=== PATIENT | female | born 1970 | race Caucasian/White ===

== ENCOUNTER 2020-09-14 08:23 | Outpatient (REF) | payer MEDICAID, SELFPAY ==
--- NOTE | ~2020-09-14 | XR_ITS ---
EXAMINATION: XR LUMBAR SPINE XR KNEE, LEFT XR KNEE, RIGHT CLINICAL INFORMATION: Pain. COMPARISON: None TECHNIQUE: Four views of each knee. Five views of the lumbar spine including bilateral oblique views. BILATERAL KNEE FINDINGS: Right: Bone alignment is normal. No fracture or dislocation is seen. There are degenerative changes of the femoral tibial and patellofemoral joints with joint space narrowing and osteophyte formation. There is a moderate-sized joint effusion. There is faint ossification projecting over the medial patellofemoral joint on the sunrise view and adjacent to the tibial spines on the tunnel view questionable for ossified intra-articular loose bodies. Left: There is question of mild medial subluxation of the distal femur with respect to the proximal tibia. Bone alignment is otherwise normal. There is arthritis at the patellofemoral and femorotibial joints with joint space narrowing and osteophyte formation. There is a small joint effusion. There is a linear radiopaque density that projects over the medial soft tissues just above the knee joint. This is seen on the AP view only and is in the region of the greater saphenous vein. This measures 5.6 x 0.6 cm and longitudinal and transverse dimension. XR/XR knee RT 4V IMPRESSION: Bilateral arthritis. Linear radiopaque density projecting over the soft tissues of the medial distal thigh just above the elbow in the region of the greater saphenous vein. This is seen on one view only. Clinical correlation recommended. LUMBAR SPINE FINDINGS: Bone alignment is normal. No fracture or dislocation is seen. There is degenerative disc disease at L4-L5 and L5-S1. There is lower lumbar spine facet arthritis. No pars defect is seen. There are degenerative changes at the hip joints. IMPRESSION: Degenerative disc disease and facet arthritis of the lower lumbar spine.
--- NOTE | ~2020-09-14 | XR_ITS ---
EXAMINATION: XR LUMBAR SPINE XR KNEE, LEFT XR KNEE, RIGHT CLINICAL INFORMATION: Pain. COMPARISON: None TECHNIQUE: Four views of each knee. Five views of the lumbar spine including bilateral oblique views. BILATERAL KNEE FINDINGS: Right: Bone alignment is normal. No fracture or dislocation is seen. There are degenerative changes of the femoral tibial and patellofemoral joints with joint space narrowing and osteophyte formation. There is a moderate-sized joint effusion. There is faint ossification projecting over the medial patellofemoral joint on the sunrise view and adjacent to the tibial spines on the tunnel view questionable for ossified intra-articular loose bodies. Left: There is question of mild medial subluxation of the distal femur with respect to the proximal tibia. Bone alignment is otherwise normal. There is arthritis at the patellofemoral and femorotibial joints with joint space narrowing and osteophyte formation. There is a small joint effusion. There is a linear radiopaque density that projects over the medial soft tissues just above the knee joint. This is seen on the AP view only and is in the region of the greater saphenous vein. This measures 5.6 x 0.6 cm and longitudinal and transverse dimension. XR/XR lumbar spine 4V min IMPRESSION: Bilateral arthritis. Linear radiopaque density projecting over the soft tissues of the medial distal thigh just above the elbow in the region of the greater saphenous vein. This is seen on one view only. Clinical correlation recommended. LUMBAR SPINE FINDINGS: Bone alignment is normal. No fracture or dislocation is seen. There is degenerative disc disease at L4-L5 and L5-S1. There is lower lumbar spine facet arthritis. No pars defect is seen. There are degenerative changes at the hip joints. IMPRESSION: Degenerative disc disease and facet arthritis of the lower lumbar spine.
[2020-09-14 09:20] LABS: MANUAL DIFF FLAG NO
[2020-09-14 09:25] LABS: Basophils Absolute Auto 0.1 X10*3/uL (0.0-0.2); Basophils Percent Auto 0.6 % (0-2); Eosinophils Absolute Auto 0.6 X10*3/uL (0.0-0.4); Eosinophils Percent Auto 5.5 % (0-4); Hemoglobin 12.3 g/dl (12.0-16.0); Imm Gran Abs Auto 0.04 X10*3/uL (0.00-0.03); Imm Gran Pct Auto 0.4 % (0.0-0.4); Lymphocytes Absolute Auto 3.3 X10*3/uL (1.2-4.9); Lymphocytes Percent Auto 32.5 % (20-40); Mean Corpuscular HGB Conc 31.5 g/dl (31.0-35.0); Mean Corpuscular Hemoglobin 25.2 pg (27.0-33.0); Mean Corpuscular Volume 79.9 fL (80-98); Mean Platelet Volume 10.4 fL (9.4-12.3); Monocytes Absolute Auto 0.9 X10*3/uL (0.1-1.2); Monocytes Percent Auto 8.8 % (2-11); Neutrophils Absolute Auto 5.2 X10*3/uL (2.0-8.3); Neutrophils Percent Auto 52.2 % (45-73); Platelet Count 430 X10*3/uL (160-400); Red Blood Count 4.88 X10*6/uL (4.20-5.50); Red Cell Distribution Width 14.6 % (11.0-16.0)
[2020-09-14 09:54] LABS: Alanine Aminotransferase 36 U/L (0-31); Albumin Level 4.2 g/dL (3.5-5.0); Alkaline Phosphatase 95 U/L (39-117); Anion Gap 14 (12-20); Aspartate Amino Transferase 42 U/L (5-31); Bilirubin Direct < 0.2 mg/dL (0.0-0.5); Bilirubin Total 0.4 mg/dL (0.0-1.0); Blood Urea Nitrogen 12 mg/dL (9-16); Calcium 9.4 mg/dL (8.4-10.2); Carbon Dioxide 25 mmol/L (22-29); Chloride 105 mmol/L (96-108); Estimated Glomerular Filt Rate > 60; Glucose Random 105 mg/dL (60-115); Potassium 4.5 mmol/L (3.3-5.1); Sodium 139 mmol/L (135-145); Total Protein 7.2 g/dL (6.5-8.0)
[2020-09-14 10:07] LABS: HIV AB/AG Nonreactive (Nonreactive); HIV Num 1 0.05 S/CO (0.00-0.99)
[2020-09-14 10:14] LABS: Thyroid Stimulating Hormone 0.07 uIU/mL (0.32-4.0); Vitamin D 25-OH Total 39.9 ng/mL (>30)
[2020-09-14 10:52] LABS: Syphilis Screen Reactive (Nonreactive)
[2020-09-14 11:02] LABS: Folate 18.1 ng/mL (> or = 4.0); Vitamin B12 762 pg/mL (200-900)
[2020-09-15 21:12] LABS: C. trachomatis RNA TMA NOT DETECTED (NOT DETECTED); N. gonorrhoeae RNA TMA NOT DETECTED (NOT DETECTED)
[2020-09-26 15:12] LABS: RPR Quantitative Reactive 1:16 (Nonreactive)
[2020-09-26 15:13] LABS: T.Pallidum Particle Agg Test Reactive (Nonreactive)
== END 2020-09-14 08:24 | disposition home or self-care (01) ==
LOC: HO.LAB 08:23
PROVIDERS: PCP Internal Medicine; Visit Provider Internal Medicine
DX: M54.5 Low back pain (principal); M17.0 Bilateral primary osteoarthritis of knee; E03.9 Hypothyroidism, unspecified; Z86.19 Personal history of other infectious and parasitic diseases
CPT/HCPCS: 36415; 72110; 73564; 80048; 80076; 82306; 82607; 82746; 84443; 85025; 86592; 86780; 87389; 87491; 87591

== ENCOUNTER 2020-11-08 12:12 | Outpatient (REF) | payer MEDICAID, SELFPAY ==
[2020-11-08 14:48] LABS: Free T4 (Free Thyroxine) 0.77 ng/dL (0.71-1.85); Thyroid Stimulating Hormone 8.39 uIU/mL (0.32-4.0)
[2020-11-09 06:22] LABS: Thyroid Peroxidase Antibodies 4 IU/mL (<9)
[2020-11-09 09:31] LABS: Thyroglobulin Antibodies 1 IU/mL (< or = 1)
== END 2020-11-08 12:13 | disposition home or self-care (01) ==
LOC: HO.LAB 12:12
PROVIDERS: PCP Internal Medicine; Visit Provider Nurse Practitioner Gerontology
DX: E03.9 Hypothyroidism, unspecified (principal); E66.09 Other obesity due to excess calories; Z71.3 Dietary counseling and surveillance; F17.200 Nicotine dependence, unspecified, uncomplicated; Z79.899 Other long term (current) drug therapy; Z71.6 Tobacco abuse counseling; Z68.41 Body mass index [BMI] 40.0-44.9, adult
CPT/HCPCS: 36415; 84439; 84443; 86376; 86800; 99212

== ENCOUNTER 2021-02-16 11:21 | Emergency (ER) | payer MEDICAID, SELFPAY ==
--- NOTE | ~2021-02-16 | XR_ITS ---
EXAMINATION: RIGHT FOOT, LEFT KNEE, AND LUMBAR SPINE. CLINICAL INFORMATION: Pain COMPARISON: September 14, 2020 TECHNIQUE: 3 views of the right foot, 4 views of the left knee, and three-view lumbar spine study. FINDINGS: 3 views of the right foot do not demonstrate any evidence of acute fracture or dislocation. Joint spaces appear maintained. No radiopaque foreign body. There is a large plantar calcaneal spur. Views of the left knee demonstrate moderate narrowing of the medial joint space compartment. Tricompartment degenerative spurring is present. No acute fracture identified. No knee effusion. There is some prominent spurring about the patellofemoral joint. There is no significant change. There are 5 nonrib bearing lumbar vertebra with lumbarization of S1. No acute fracture, spondylolisthesis, or spondylolysis is appreciated. Anterior marginal spurring is seen multiple levels of the lower thoracic and upper lumbar spine. There is disc space narrowing seen at the L5-S1 and S1-S2 levels. Sacroiliac joints unremarkable. Pedicles appear intact. XR/XR lumbar spine 2-3V IMPRESSION: Large right foot plantar calcaneal spur. Tricompartment degenerative change of the left knee most significantly involving the medial joint space compartment. Lumbarization of S1 with disc space narrowing seen at the L5-S1 and S1-S2 levels.
--- NOTE | ~2021-02-16 | XR_ITS ---
EXAMINATION: RIGHT FOOT, LEFT KNEE, AND LUMBAR SPINE. CLINICAL INFORMATION: Pain COMPARISON: September 14, 2020 TECHNIQUE: 3 views of the right foot, 4 views of the left knee, and three-view lumbar spine study. FINDINGS: 3 views of the right foot do not demonstrate any evidence of acute fracture or dislocation. Joint spaces appear maintained. No radiopaque foreign body. There is a large plantar calcaneal spur. Views of the left knee demonstrate moderate narrowing of the medial joint space compartment. Tricompartment degenerative spurring is present. No acute fracture identified. No knee effusion. There is some prominent spurring about the patellofemoral joint. There is no significant change. There are 5 nonrib bearing lumbar vertebra with lumbarization of S1. No acute fracture, spondylolisthesis, or spondylolysis is appreciated. Anterior marginal spurring is seen multiple levels of the lower thoracic and upper lumbar spine. There is disc space narrowing seen at the L5-S1 and S1-S2 levels. Sacroiliac joints unremarkable. Pedicles appear intact. XR/XR foot RT 2V IMPRESSION: Large right foot plantar calcaneal spur. Tricompartment degenerative change of the left knee most significantly involving the medial joint space compartment. Lumbarization of S1 with disc space narrowing seen at the L5-S1 and S1-S2 levels.
--- NOTE | ~2021-02-16 | XR_ITS ---
EXAMINATION: RIGHT FOOT, LEFT KNEE, AND LUMBAR SPINE. CLINICAL INFORMATION: Pain COMPARISON: September 14, 2020 TECHNIQUE: 3 views of the right foot, 4 views of the left knee, and three-view lumbar spine study. FINDINGS: 3 views of the right foot do not demonstrate any evidence of acute fracture or dislocation. Joint spaces appear maintained. No radiopaque foreign body. There is a large plantar calcaneal spur. Views of the left knee demonstrate moderate narrowing of the medial joint space compartment. Tricompartment degenerative spurring is present. No acute fracture identified. No knee effusion. There is some prominent spurring about the patellofemoral joint. There is no significant change. There are 5 nonrib bearing lumbar vertebra with lumbarization of S1. No acute fracture, spondylolisthesis, or spondylolysis is appreciated. Anterior marginal spurring is seen multiple levels of the lower thoracic and upper lumbar spine. There is disc space narrowing seen at the L5-S1 and S1-S2 levels. Sacroiliac joints unremarkable. Pedicles appear intact. XR/XR knee LT 3V IMPRESSION: Large right foot plantar calcaneal spur. Tricompartment degenerative change of the left knee most significantly involving the medial joint space compartment. Lumbarization of S1 with disc space narrowing seen at the L5-S1 and S1-S2 levels.
[2021-02-16 11:37] VITALS: BP 150/99; PULSE 84; RESP 18; TEMP 36.9; O2SAT 97; BMI 42.9
--- NOTE | 2021-02-16 11:40 | ED_ITS ---
HPI - Extremity Injury (Lower) General Chief Complaint: Extremity Injury, Lower Stated Complaint: knee pain Time Seen by Provider: 02/16/21 11:40 Source: patient Mode of arrival: ambulatory Limitations: no limitations History of Present Illness HPI Narrative: 50-year-old female with past medical history of obesity, hypothyroidism, degenerative joint disease who presents to the emergency department with complaints of atraumatic left knee right foot and low back pain since yesterday. Patient states yesterday she notes her left knee was bothering her more than normal and feels that because of compensating more on the right side she developed worsening low back pain and right foot pain. States she heard increased clicking to the left knee but denies known injury or trauma. States she is out of her celecoxib and is waiting for the pharmacy to center more which could be contributing to increased pain states this morning she took a dose of Aleve and her gabapentin with minimal relief. Denies fevers or chi lls. Denies chest pain or shortness of breath. Denies abdominal pain nausea vomiting changes in bowel or bladder habits or numbness and tingling in the arms legs or genitals. Related Data Home Medications Medication Instructions Recorded Confirmed amlodipine 5 mg tablet 5 mg PO DAILY 11/08/20 11/08/20 celecoxib 100 mg capsule 100 mg PO DAILY 11/08/20 11/08/20 diclofenac sodium 1 % topical gel 2 g TOPICAL DAILY g 11/08/20 11/08/20 docusate sodium 100 mg capsule 100 mg PO BID 11/08/20 11/08/20 gabapentin 100 mg capsule 100 mg PO TID 11/08/20 11/08/20 hydrochlorothiazide 12.5 mg tablet 12.5 mg PO DAILY 11/08/20 11/08/20 hydroxyzine HCl 10 mg tablet 10 mg PO BID tab 11/08/20 11/08/20 lamotrigine 100 mg tablet 100 mg PO BID 11/08/20 11/08/20 lisinopril 20 mg tablet 20 mg PO DAILY 11/08/20 11/08/20 omeprazole 40 mg capsule,delayed 40 mg PO BID 11/08/20 11/08/20 release prazosin 2 mg capsule 2 mg PO BEDTIME 11/08/20 11/08/20 simvastatin 5 mg tablet 5 mg PO BEDTIME 11/08/20 11/08/20 valacyclovir 500 mg tablet 500 mg PO DAILY PRN 11/08/20 11/08/20 Previous Rx's Medication Instructions Recorded levothyroxine 137 mcg capsule 137 mcg PO DAILY #30 cap 11/08/20 celecoxib [Celebrex] 100 mg PO .daily at bedtime #30 cap 02/16/21 Allergies Allergy/AdvReac Type Severity Reaction Status Date / Time Penicillins Allergy Unknown Anaphylaxis Verified 11/08/20 12:47 Review of Systems 2 Review of Systems: Constitutional : No Weight loss, No Fever, No Chills, No Night Sweats, No Fatigue, No Malaise ENT/Mouth : No Hearing loss, No Ear Pain, No Nasal Congestion, No Sinus Pain, No Hoarseness, No sore throat, No Rhinorrhea, No Swallowing Difficulty Eyes: No Eye Pain, No Swelling, No Redness, No Foreign Body, No Discharge, No Vision Changes Cardiovascular : No Chest Pain, No SOB, No Dyspnea on Exertion, No Orthopnea, No Edema, No Palpitations Respiratory : No Cough, No Sputum, No Wheezing, No Smoke Exposure, No Dyspnea Gastrointestinal : No Nausea, No Vomiting, No Diarrhea, No Constipation, No abdominal Pain, No Hematochezia, No Melena Genitourinary : no irregular bleeding, No Dysuria, No Urinary Frequency, No Hematuria, No Urinary Incontinence, No Urgency, No Flank Pain, No Urinary Flow Changes, No Hesitancy Musculoskeletal : + joint pain, No Myalgias, + Joint Swelling, + low back pain Skin : No Skin Lesions, No rash Neuro : No Weakness, No Numbness, No Paresthesias, No Loss of Consciousness, No Dizziness, No Headache Psych : No Anxiety/Panic, No Depression, No SI/HI/AH/VH, No Social Issues, Heme/Lymph: No Bruising, No Bleeding,No Lymphadenopathy Endocrine : No Polyuria, No Polydipsia, No Temperature Intolerance [facility] Past Medical History Attestation statement: The following information was validated with the patient. Source: old records reviewed and obtained from family Medical History (Updated 02/16/21 @ 13:06 by CANDIDA Burgos) Essential hypertension Hypothyroidism Obesity due to excess calories Osteoarthritis Surgical History H/O shoulder surgery History of carpal tunnel release Hx of tonsillectomy Family History Family History (Updated 11/08/20 @ 12:20 by Dea Rodriguez [facility]) Father Lung cancer Mother Congestive heart failure Type 2 diabetes mellitus Social History Social History (Updated 11/08/20 @ 09:35 by Odin Ramirez [facility]) Advance Directives: Yes Advance Directives Information Provided: Yes Advance Directives on File: No Patient : No Physical Exam Vital Signs: Vital Signs: Last Vital Signs Temp 98.4 F 02/16/21 11:37 Pulse 84 02/16/21 11:37 Resp 18 02/16/21 11:37 BP 150/99 H 02/16/21 11:37 Pulse Ox 97 02/16/21 11:37 Body Mass Index 42.9 vital signs have been reviewed as normal and appeared to be correct. Blood pressure normal. Heart rate normal. Respiration rate normal. Temperature normal. Oxygen saturation normal. Appearance: Alert. Oriented X3. No acute distress. Head: Normal external exam. Normocephalic. Atraumatic. No [place] signs noted. No raccoon eyes noted Eyes: Conjunctiva and sclera normal. ENT: EAC normal. Moist mucous membranes. No drooling noted. No muffled voice noted. Neck: Normal inspection. Neck supple. FROM. No meningeal signs. CVS: Pulses normal throughout. Respiratory: No respiratory distress. Painless inspiration. No accessory muscle usage noted Abdomen: No visible injury noted. Abdomen soft nondistended nontender Back: Full range of motion noted. Pain to palpation of midline lumbar spine as well as bilateral paraspinal regions. No step-offs or gross deformities no overlying skin changes no flank tenderness Skin: Skin warm and dry. Normal skin color. Normal skin turgor. Extremities: No lower extremity edema. Extremities exhibit normal range of motion. Patient with full range of motion of the left knee however pain to palpation over the anterior knee cap as well as MCL. Mild increased edema compared to the right. Patient with full range of motion of right ankle and right foot however edema with pain to palpation over the anterior foot itself. Patient is wearing an ankle monitor Achilles tendon intact distal pulses. Sensation is otherwise intact Neuro: Oriented X 3. No motor deficit. No sensory deficit. Course Course Course Narrative: Patient's x-rays returned without acute fracture or dislocation patient asking for her celecoxib to be refilled, feel this is reasonable we will discharge home with instructions to use this and ibuprofen during the day for pain MDM - Extremity Injury (Lower) MDM Narrative Medical decision making narrative: Patient's vital signs are stable and she is afebrile. Patient presenting to the emergency department with reports of acute on chronic pains in the left knee right foot and low back. No reports of new or traumatic injuries. Will obtain x-rays of the left knee right foot and lumbar spine to ensure the absence of acute findings given no degenerative joint disease. Will medicate with Motrin and Tylenol. No red flags on exam no acute concern for cauda equina or SEA. Patient states of ankle monitor needs to be removed for images her chief digital officer approved this will leave this to x-ray if warranted will continue to monitor pending the above. Discharge Plan Discharge Clinical Impression: Lumbar back pain Acute knee pain Qualifiers: Laterality: left Qualified Code(s): M25.562 - Pain in left knee Acute foot pain Qualifiers: Laterality: right Qualified Code(s): M79.671 - Pain in right foot Patient Disposition: Home, Self-Care Instructions: Acute Low Back Pain (ED), Knee Pain (ED) Additional Instructions: You were seen in the emergency department today for left knee right foot and low back pain x-rays of these areas were taken and show degenerative joint disease but no evidence of acute fractures. A new prescription for your celecoxib will be sent to [facility] continue to use ibuprofen at home every 6 hours to help with acute pain and inflammation. Prescriptions: New celecoxib [Celebrex] 100 mg capsule 100 mg PO .daily at bedtime Qty: 30 RF: 0 No Action prazosin 2 mg capsule 2 mg PO BEDTIME RF: 0 simvastatin 5 mg tablet 5 mg PO BEDTIME RF: 0 gabapentin 100 mg capsule 100 mg PO TID RF: 0 omeprazole 40 mg capsule,delayed release(DR/EC) 40 mg PO BID RF: 0 celecoxib 100 mg capsule 100 mg PO DAILY RF: 0 diclofenac sodium 1 % gel 2 g topical DAILY RF: 0 docusate sodium 100 mg capsule 100 mg PO BID RF: 0 hydroxyzine HCl 10 mg tablet 10 mg PO BID RF: 0 lamotrigine [Lamictal] 100 mg tablet 100 mg PO BID RF: 0 hydrochlorothiazide 12.5 mg tablet 12.5 mg PO DAILY RF: 0 lisinopril 20 mg tablet 20 mg PO DAILY RF: 0 amlodipine 5 mg tablet 5 mg PO DAILY RF: 0 valacyclovir 500 mg tablet 500 mg PO DAILY PRNRF: 0 levothyroxine 137 mcg capsule 137 mcg PO DAILY Qty: 30 RF: 6 Interventions: ED Discharge Assessment Last Done: 02/16/21 13:13 Discharge Date/Time: 02/16/21 13:13 Print Language: Czech
[2021-02-16] MEDS: Ibuprofen 800 MG TABLET PO (12:17)
[2021-02-16] MEDS: Acetaminophen 325 MG TABLET 650 MG PO (12:17)
== END 2021-02-16 13:13 | disposition home or self-care (01) ==
PROVIDERS: Emergency Provider Emergency Medicine Emergency Medical Services; PCP Internal Medicine
DX: M54.5 Low back pain (principal); M25.562 Pain in left knee; M79.671 Pain in right foot; I10 Essential (primary) hypertension
CPT/HCPCS: 72100; 73562; 73620; 99283

== ENCOUNTER 2021-05-03 15:32 | Emergency (ER) | payer MEDICAID, SELFPAY ==
[2021-05-03 17:23] VITALS: BP 153/79; PULSE 73; RESP 20; TEMP 36.1; O2SAT 100; BMI 38.0
[2021-05-03 19:35] VITALS: BP 178/100; PULSE 79; RESP 20; TEMP 36.6; O2SAT 100
[2021-05-03 19:48] LABS: Appearance Urine CLEAR; Color Urine YELLOW; Glucose Urine UA NEG (NEG); Leukocyte Esterase Urine NEG (NEG); Nitrite Urine NEG (NEG); Urine Blood NEG (NEG); Urine Ketones NEG (NEG); Urine Protein NEG (NEG-TRACE)
[2021-05-03 19:50] LABS: UPreg QC Valid YES; Urine Pregnancy NEGATIVE (NEGATIVE)
--- NOTE | 2021-05-03 19:53 | ED_ITS ---
HPI - Back Pain/Injury General Chief Complaint: Back Pain/Injury Stated Complaint: Multiple complaints Time Seen by Provider: 05/03/21 19:07 Source: patient Mode of arrival: ambulatory Limitations: no limitations History of Present Illness HPI Narrative: Patient with pmh of arthritis of spine, hips, and knees presents to ED for chronic left-sided back pain going down left leg. Patient has had 2 recent x-rays that shows arthritis but no fractures. Patient states pain worsened the past two weeks. Back pain radiating to left hip. Patient denies any urinary/bowel incontinence. Patient denies any nausea, vomiting, fever, chills, flank pain. Patient states she had trauma 2 weeks ago were a garbage can fell on the back and she went to orthopedics clinic and did an x-ray which was normal. Patient denies dragging of feet.. Related Data Home Medications Medication Instructions Recorded Confirmed amlodipine 5 mg tablet 5 mg PO DAILY 11/08/20 11/08/20 celecoxib 100 mg capsule 100 mg PO DAILY 11/08/20 11/08/20 diclofenac sodium 1 % topical gel 2 g TOPICAL DAILY g 11/08/20 11/08/20 docusate sodium 100 mg capsule 100 mg PO BID 11/08/20 11/08/20 gabapentin 100 mg capsule 100 mg PO TID 11/08/20 11/08/20 hydrochlorothiazide 12.5 mg tablet 12.5 mg PO DAILY 11/08/20 11/08/20 hydroxyzine HCl 10 mg tablet 10 mg PO BID tab 11/08/20 11/08/20 lamotrigine 100 mg tablet 100 mg PO BID 11/08/20 11/08/20 (Lamictal) lisinopril 20 mg tablet 20 mg PO DAILY 11/08/20 11/08/20 omeprazole 40 mg capsule,delayed 40 mg PO BID 11/08/20 11/08/20 release prazosin 2 mg capsule 2 mg PO BEDTIME 11/08/20 11/08/20 simvastatin 5 mg tablet 5 mg PO BEDTIME 11/08/20 11/08/20 valacyclovir 500 mg tablet 500 mg PO DAILY PRN 11/08/20 11/08/20 Previous Rx's Medication Instructions Recorded levothyroxine 137 mcg capsule 137 mcg PO DAILY #30 cap 11/08/20 celecoxib 100 mg capsule (Celebrex) 100 mg PO .daily at bedtime #30 cap 07/22/21 cyclobenzaprine 10 mg tablet 10 mg PO TID PRN #18 tab 05/03/21 lidocaine 4 % topical patch 1 patch TOPICAL DAILY PRN #10 ea 05/03/21 (Aspercreme (lidocaine)) prednisone 20 mg tablet 60 mg PO DAILY 5 Days #15 tab 05/03/21 Allergies Allergy/AdvReac Type Severity Reaction Status Date / Time Penicillins Allergy Unknown Anaphylaxis Verified 11/08/20 12:47 Review of Systems Review of Systems: Yes all other systems are reviewed and are negative Constitutional: Constitutional: Reports as per HPI and Reports no additional constitutional complaints Eyes: Eyes: Reports as per HPI and Reports no additional eye complaints ENT: Reports system reviewed and no additional complaints, except as documented and Reports as per HPI Cardiovascular: Cardiovascular: Reports as per HPI and Reports no additional cardiovascular complaints Respiratory: Respiratory: Reports as per HPI and Reports no additional respiratory complaints Gastrointestinal: Gastrointestinal: Reports as per HPI and Reports no additional gastrointestinal complaints Genitourinary: Genitourinary: Reports no additional female genitourinary complaints and Reports as per HPI Musculoskeletal: Musculoskeletal: Reports no additional musculoskeletal complaints, Reports as per HPI and Reports back pain Neurologic: Reports system reviewed and no additional complaints, except as documented and Reports as per HPI Psychiatric: Psychiatric: Reports no additional psychiatric complaints and Reports as per HPI [facility] Past Medical History Medical History (Updated 05/03/21 @ 20:34 by CANDIDA Borges) Essential hypertension Hypothyroidism Obesity due to excess calories Osteoarthritis Surgical History H/O shoulder surgery History of carpal tunnel release Hx of tonsillectomy Family History Family History (Updated 11/08/20 @ 12:20 by Dea Rodriguez CCM) Father Lung cancer Mother Congestive heart failure Type 2 diabetes mellitus Social History Social History (Updated 11/08/20 @ 09:35 by Odin Ramirez [facility]) Advance Directives: No Advance Directives Information Provided: No Patient : No Physical Exam Vital Signs: Vital Signs: Last Vital Signs Temp 98 F 05/03/21 19:35 Pulse 79 05/03/21 19:35 Resp 20 05/03/21 19:35 BP 178/100 H 05/03/21 19:35 Pulse Ox 100 05/03/21 19:35 Body Mass Index 38.0 Const: General: cooperative, healthy appearing, comfortable, no acute distress, well developed, alert, awake and Physically active Orientation/consciousness: patient oriented x3 Neck: Neck: Yes normal visual inspection, Yes full ROM, Yes no lymphadenopathy, Yes no meningeal signs, Yes trachea midline, Yes supple and No tender Chest: Chest palpation & inspection: normal inspection of the chest and normal palpation of entire chest wall Resp: Effort & Inspection: normal respiratory effort and able to speak in complete sentences Cardio: Jugular venous distension: no JVD Heart sounds: S1 normal heart sound present and S2 normal heart sound present GI: Inspection: Yes normal to inspection and No abdominal wall ecchymosis Palpation (GI): Soft to palpation, not firm, nontender, no guarding and not rigid : General: No CVA tenderness and Yes no CVA tenderness Back/Spine/Pelvis: Back: no CVA tenderness, No CVA tenderness and back tenderness (Lumbar tenderness slight) Skin: General skin exam: no rashes or lesions noted and elasticity normal Neuro: General: patient oriented x3, gait normal, no meningeal signs and CN's II-XI intact bilaterally Cranial nerves: Yes CN's II-XII intact bilaterally Extrem: General: Yes normal to inspection and Yes full ROM Psych: Appearance: grossly normal, well kempt and not disheveled Course Course Course Narrative: Chronic back pain exacerbation going to the left hip. Patient had to [facility] x-rays within the past 3 weeks. NO indication for repeat x-ray. Will send UA to check for bloody urine or possible to UTI. Toradol Flexeril ordered. Reevaluation(s) Reevaluation #1: Pain improved after receiving Toradol muscle relaxer. Patient already on Celebrex, gabapentin. Will discharge with prednisone and muscle relaxer. Also lidocaine patch. Not give narcotics due to patient's history of narcotic addiction in the past. Urine negative for UTI or blood. patient will follow up with PCP/Orthopedic Time: 20:32 MDM - Back Pain/Injury MDM Narrative Medical decision making narrative: Chronic back pain exacerbation Lab Data Labs: Lab Results 05/03/21 05/03/21 Range/Units 19:34 19:34 Urine Color YELLOW Urine Appearance CLEAR Urine pH 6.0 (5.0-8.0) Ur Specific [place] 1.020 (1.005-1.025) Urine Protein NEG (NEG-TRACE) MG/DL Urine Glucose (UA) NEG (NEG) MG/DL Urine Ketones NEG (NEG) MG/DL Urine Blood NEG (NEG) Urine Nitrite NEG (NEG) Ur Leukocyte Esterase NEG (NEG) Urine Test NEGATIVE (NEGATIVE) Discharge Plan Discharge Clinical Impression: Lumbar radiculopathy, Chronic back pain Patient Disposition: Home, Self-Care Instructions: Lumbar Radiculopathy (ED), Chronic Back Pain (DC) Additional Instructions: Your urine negative for UTI. Symptoms due to chronic back pain exacerbation. Please follow-up with primary care provider/orthopedic to see if MRI indicated. Return to the ED immediately for any urinary/bowel incontinence, abdominal pain, nausea, vomiting, flank pain, fever, chills, dysuria, hematuria, or any other concerning symptoms. Prescriptions: New prednisone 20 mg tablet 60 mg PO DAILY 5 Days Qty: 15 RF: 0 cyclobenzaprine 10 mg tablet 10 mg PO TID PRN (Reason: muscle spasm) Qty: 18 RF: 0 lidocaine [Aspercreme (lidocaine HCl)] 4 % adhesive patch,medicated 1 patch topical DAILY PRN (Reason: pain) Qty: 10 RF: 0 No Action celecoxib [Celebrex] 100 mg capsule 100 mg PO .daily at bedtime Qty: 30 RF: 0 prazosin 2 mg capsule 2 mg PO BEDTIME RF: 0 simvastatin 5 mg tablet 5 mg PO BEDTIME RF: 0 gabapentin 100 mg capsule 100 mg PO TID RF: 0 omeprazole 40 mg capsule,delayed release(DR/EC) 40 mg PO BID RF: 0 celecoxib 100 mg capsule 100 mg PO DAILY RF: 0 diclofenac sodium 1 % gel 2 g topical DAILY RF: 0 docusate sodium 100 mg capsule 100 mg PO BID RF: 0 hydroxyzine HCl 10 mg tablet 10 mg PO BID RF: 0 lamotrigine [Lamictal] 100 mg tablet 100 mg PO BID RF: 0 hydrochlorothiazide 12.5 mg tablet 12.5 mg PO DAILY RF: 0 lisinopril 20 mg tablet 20 mg PO DAILY RF: 0 amlodipine 5 mg tablet 5 mg PO DAILY RF: 0 valacyclovir 500 mg tablet 500 mg PO DAILY PRNRF: 0 levothyroxine 137 mcg capsule 137 mcg PO DAILY Qty: 30 RF: 6 Stand Alone Forms: Work/School Release Print Language: Senegalese
[2021-05-03] MEDS: Cyclobenzaprine HCl 10 MG TABLET PO (19:57)
[2021-05-03] MEDS: Ketorolac Tromethamine 15 MG/ML VIAL 30 MG IM (19:57)
== END 2021-05-03 20:59 | disposition home or self-care (01) ==
PROVIDERS: Physician Assistant; Emergency Provider Internal Medicine; PCP Internal Medicine
DX: M54.16 Radiculopathy, lumbar region (principal); G89.29 Other chronic pain; M54.50 Low back pain, unspecified; I10 Essential (primary) hypertension; Z79.899 Other long term (current) drug therapy
CPT/HCPCS: 81003; 81025; 96372; 99284; J1885

== ENCOUNTER → 2021-05-10 11:24 | Outpatient (BNVA) | payer MEDICAID, SELFPAY | PROVIDERS: PCP Internal Medicine; Visit Provider Nurse Practitioner Gerontology | DX: E03.9 Hypothyroidism, unspecified (principal); E66.09 Other obesity due to excess calories | CPT/HCPCS: 36415; 84439; 84443; 99212 ==

== ENCOUNTER 2021-05-10 11:57 | Outpatient (REF) | payer MEDICAID, SELFPAY ==
[2021-05-10 14:10] LABS: Free T4 (Free Thyroxine) 0.95 ng/dL (0.71-1.85); Thyroid Stimulating Hormone 11.27 uIU/mL (0.32-4.0)
== END 2021-05-10 11:58 | disposition home or self-care (01) ==
LOC: HO.10HDL 11:57
PROVIDERS: Visit Provider Nurse Practitioner Gerontology
DX: E03.9 Hypothyroidism, unspecified (principal)
CPT/HCPCS: 36415; 84439; 84443

== ENCOUNTER 2021-07-25 09:49 | Emergency (ER) | payer OTHER, SELFPAY ==
--- NOTE | ~2021-07-25 | MR_ITS ---
EXAMINATION: MR LUMBAR SPINE WITHOUT CONTRAST CLINICAL INFORMATION: Worsening lower extremity pain status post trauma 2 months ago. COMPARISON: Lumbar spine radiographs 02/16/2021. TECHNIQUE: MRI of the lumbar spine was obtained using routine sequences without contrast. FINDINGS: There is a slight grade 1 retrolisthesis of L1 on L2. Alignment is otherwise normal. Vertebral heights are preserved. There are type II degenerative endplate changes at L4-L5. No acute bone marrow signal changes. There is slight loss of intervertebral disc height and T2 signal intensity at multiple levels related to disc degeneration. The tip of the conus medullaris is located at L1. No mass effect on the conus. Visualized distal cord signal intensity is normal. At L1-L2 there is a slightly bulging disc. Bilateral facet degenerative change. No canal stenosis. No mass effect on the traversing or foraminal nerve roots. At L2-L3 there is a left foraminal to far lateral protrusion/extrusion causing moderate compression of the extraforaminal segment of the left L2 nerve root. Bilateral facet degenerative change. No canal stenosis. At L3-L4 there is a slightly bulging disc. Bilateral facet degenerative change. No canal stenosis. Partial effacement of the perineural fat without overt compression of the L3 foraminal nerve roots. At L4-L5 there is a to the right central protrusion superimposed upon a diffusely bulging disc. Bilateral facet degenerative change. There is displacement and possible compression of both traversing L5 nerve roots, greater on the left. No foraminal nerve root compression. At L5-S1 there is a slightly bulging disc. Advanced bilateral facet degenerative change. No canal stenosis. No mass effect on the traversing or foraminal nerve roots. Limited visualization of the retroperitoneal anatomy reveals no abnormal finding. Psoas and paraspinal muscle groups are symmetric. MR/MR lumbar spine wo con IMPRESSION: There is multilevel degenerative spondylosis of the lumbar spine. A left foraminal to far lateral protrusion at L2-L3 causing moderate mass effect on the foraminal segment of left L2 nerve root. There is also partial effacement of perineural fat at L3-L4 the more than mild mass effect on the right L3 foraminal nerve root. Subarticular zone narrowing at L4-L5 causes displacement and possible compression of both traversing L5 nerve roots, greater on the left. No canal stenosis.
[2021-07-25 10:10] VITALS: BP 146/75; PULSE 87; RESP 16; TEMP 37.1; O2SAT 98; BMI 42.3
[2021-07-25] MEDS: predniSONE 20 MG TABLET 60 MG PO (11:20)
--- NOTE | 2021-07-25 12:20 | ED.BACK ---
HPI - Back Pain/Injury General Chief Complaint: Back Pain/Injury Stated Complaint: Back Leg Pain Swelling WC 04/21/21 Time Seen by Provider: 07/25/21 10:42 Source: patient Mode of arrival: ambulatory Limitations: no limitations History of Present Illness HPI Narrative: 51-year-old female who has chronic back pain presents for worsening right-sided low back pain and worsening bilateral leg weakness. patient states her PCP wanted an MRI for her worsening leg pain and weakness, however due to an administrative problem it was not approved. States her back pain has got much worse, and it is a burning pain. Patient was seen May 03, 2021, for of trauma two weeks prior, when a recycling bin snapped off a truck and knocked her in her back. States her job keeps her on her feet all day, and states in the last few days she has to lean on something to stay upright, she has to use a cane. Reports worsening pain in the last few days. No fevers, no subtle paresthesias, no incontinence of bowel or bladder, male history of cancer, no IV drug use. Patient has a history of cocaine abuse but has been sober for 2 years. MD elicited complaint: back pain and back injury Pertinent past history: prior back pain and arthritis Onset (ago): month(s) (3) Timing: progressively worsening Severity: severe Location: right lower back and left lower back Radiation: right upper leg and right leg below the knee Exacerbating factors: movement and walking Related Data Home Medications Medication Instructions Recorded Confirmed amlodipine 5 mg tablet 5 mg PO DAILY 11/08/20 05/10/21 diclofenac sodium 1 % topical gel 2 g TOPICAL DAILY g 11/08/20 05/10/21 docusate sodium 100 mg capsule 100 mg PO BID 11/08/20 05/10/21 gabapentin 100 mg capsule 100 mg PO TID 11/08/20 05/10/21 hydrochlorothiazide 12.5 mg tablet 12.5 mg PO DAILY 11/08/20 05/10/21 hydroxyzine HCl 10 mg tablet 10 mg PO BID tab 11/08/20 05/10/21 lamotrigine 100 mg tablet 100 mg PO BID 11/08/20 05/10/21 (Lamictal) lisinopril 20 mg tablet 20 mg PO DAILY 11/08/20 05/10/21 omeprazole 40 mg capsule,delayed 40 mg PO BID 11/08/20 05/10/21 release prazosin 2 mg capsule 2 mg PO BEDTIME 11/08/20 05/10/21 simvastatin 5 mg tablet 5 mg PO BEDTIME 11/08/20 05/10/21 valacyclovir 500 mg tablet 500 mg PO DAILY PRN 11/08/20 05/10/21 Previous Rx's Medication Instructions Recorded levothyroxine 137 mcg capsule 137 mcg PO DAILY #30 cap 11/08/20 celecoxib 100 mg capsule (Celebrex) 100 mg PO .daily at bedtime #30 cap 02/16/21 cyclobenzaprine 10 mg tablet 10 mg PO TID PRN #18 tab 05/03/21 lidocaine 4 % topical patch 1 patch TOPICAL DAILY PRN #10 ea 05/03/21 (Aspercreme (lidocaine)) prednisone 20 mg tablet 60 mg PO DAILY 5 Days #15 tab 05/03/21 ketorolac 10 mg tablet 10 mg PO Q6H PRN 5 Days tab 07/25/21 prednisone 20 mg tablet 60 mg PO DAILY 5 Days #15 tab 07/25/21 Allergies Allergy/AdvReac Type Severity Reaction Status Date / Time Penicillins Allergy Unknown Anaphylaxis Verified 05/10/21 11:35 Review of Systems Constitutional: Constitutional: Denies body ache(s), Denies chills, Denies fatigue, Denies fever(s), Denies headache(s) and Denies malaise Eyes: Eyes: Denies diplopia ENT: Denies vertigo, Denies dizziness, Denies otalgia, Denies headache(s), Denies mouth pain, Denies post nasal drip, Denies sinus pain, Denies sinus pressure, Denies sore throat and Denies throat swelling Cardiovascular: Cardiovascular: Denies chest pain, Denies syncope, Denies leg edema, Denies lightheadedness, Denies Loss of Consciousness, Denies palpitations and Denies dyspnea Respiratory: Respiratory: Denies chest congestion, Denies cough and Denies dyspnea Gastrointestinal: Gastrointestinal: Denies abdominal pain, Denies hematochezia, Denies constipation, Denies diarrhea and Denies vomiting Musculoskeletal: Musculoskeletal: Reports back pain and Reports radiating pain into limb Neurologic: Denies confusion, Denies vertigo, Denies dizziness, Denies syncope and Denies headache(s) Psychiatric: Psychiatric: Denies anxiety, Denies confusion and Denies depression Endocrine: Endocrine: Denies fatigue and Denies palpitations Allergic/Immunologic: Allergic/Immunologic: Denies throat swelling PMFSH Past Medical History Medical History Essential hypertension Hypothyroidism Obesity due to excess calories Osteoarthritis Surgical History H/O shoulder surgery History of carpal tunnel release Hx of tonsillectomy Family History Family History Father Lung cancer Mother Congestive heart failure Type 2 diabetes mellitus Social History Social History Household Members: None Alcohol intake: former Patient Tobacco Use Status: Current everyday Tobacco user Substance Use Type: Crack/Cocaine and Former Substance User Advance Directives: No Advance Directives Information Provided: Yes Patient : No Physical Exam Vital Signs: Vital Signs: Last Vital Signs Temp 97.4 F 07/25/21 13:47 Pulse 84 07/25/21 13:47 Resp 16 07/25/21 13:47 BP 142/90 H 07/25/21 13:47 Pulse Ox 97 07/25/21 13:47 BMI result Body Mass Index 42.3 Const: General: No confusion Nutritional Appearance: well nourished Orientation/consciousness: No confusion Limitations: no limitations HENMT: Head: Yes normal to inspection, Yes normocephalic and Yes atraumatic Ears: hearing grossly normal bilaterally, external ears normal, TM's normal bilaterally and EAC's normal General nose exam: Normal external nose present Face and sinus: Yes normal facial exam and Yes sinuses nontender Mouth: Normal oral and palatal mucosa present Throat: Yes posterior oropharynx normal Eyes: Conjunctivae: conjunctivae normal Pupils: Equal, round and reactive pupils present EOM: EOMs intact bilaterally Neck: Neck: Yes full ROM, Yes no lymphadenopathy and Yes supple Resp: Effort & Inspection: normal respiratory effort and able to speak in complete sentences Auscultation: clear to auscultation bilaterally, no crackles, no rales, no rhonchi and no wheezes Cardio: Rate: regular rate Rhythm: regular rhythm Heart sounds: S1 normal heart sound present and S2 normal heart sound present GI: Inspection: Yes normal to inspection Palpation (GI): Soft to palpation, nontender, no guarding and not rigid Percussion: Yes normal to percussion Auscultation: normal bowel sounds : General: Yes no CVA tenderness Back/Spine/Pelvis: Back: no CVA tenderness Cervical Spine: normal cervical lordosis, cervical ROM normal, No Cervical spine tenderness and No cervical ROM abnormal Thoracic/Lumbar Spine: thoraco-lumbar ROM limited, thoraco-lumbar spasm bilaterally, No thoracic spinal tenderness, lumbar spinal tenderness and straight leg raise positive right Pelvis: no pain with anterior-posterior compression and no pain with lateral compression Skin: General skin exam: no rashes or lesions noted Neuro: General: No confusion Cranial nerves: Yes Equal, round and reactive pupils present Extrem: General: Yes normal to inspection and Yes full ROM Psych: Appearance: grossly normal Affect: normal affect Attitude: cooperative Thought process: Normal thought process present Course Course Course Narrative: 51-year-old female with worsening bilateral low back pain, who is tender over her lumbar vertebrae enzymes for worsening pain after trauma to her low back 3 months ago. At on exam, condition can plantar flex on her right foot, but it is weaker than her left, she can walk with a shuffling gait and is using a cane urea of positive right leg raise. Patient has minimal deep tendon reflexes in her lower extremities, though she otherwise has intact motor strength, sensation, and distal pulses. Patient has perineal sensation, and rectal tone. Will give prednisone for pain, will obtain MRI. Of Reevaluation(s) Reevaluation #1: MR/MR lumbar spine wo con IMPRESSION: There is multilevel degenerative spondylosis of the lumbar spine. A left foraminal to far lateral protrusion at L2-L3 causing moderate mass effect on the foraminal segment of left L2 nerve root. There is also partial effacement of perineural fat at L3-L4 the more than mild mass effect on the right L3 foraminal nerve root. Subarticular zone narrowing at L4-L5 causes displacement and possible compression of both traversing L5 nerve roots, greater on the left. No canal stenosis. Discussed MRI results with . Patient has L2 nerve root resulting in sciatica. She needs referral to Neurosurgery or spine surgery. Patient states she does see [facility] for her spine. Counseled patient to call them for follow-up. prescribed prednisone, the ketorolac, give return precautions. To note, patient can walk, she has no saddle paresthesias, she has rectal tone, she has sensation in her perineum. Counseled patient to stop Celebrex while she is taking ketorolac Discharge Plan Discharge Clinical Impression: Lumbar nerve root compression Patient Disposition: Home, Self-Care Instructions: Sciatica (ED) Additional Instructions: Call your primary care provider for any follow-up appointment, call PCP for referral to spine surgery. If you have worsening leg weakness, if you are incontinent of bowel bladder, if you have incontinence of bowel or bladder, have numbness in your groin, please return immediately to emergency room. You must stop your Celebrex while you are taking the ketorolac Prescriptions: New ketorolac 10 mg tablet 10 mg PO Q6H PRN (Reason: pain) 5 Days RF: 0 prednisone 20 mg tablet 60 mg PO DAILY 5 Days Qty: 15 RF: 0 No Action celecoxib [Celebrex] 100 mg capsule 100 mg PO .daily at bedtime Qty: 30 RF: 0 prednisone 20 mg tablet 60 mg PO DAILY 5 Days Qty: 15 RF: 0 cyclobenzaprine 10 mg tablet 10 mg PO TID PRN (Reason: muscle spasm) Qty: 18 RF: 0 lidocaine [Aspercreme (lidocaine HCl)] 4 % adhesive patch,medicated 1 patch topical DAILY PRN (Reason: pain) Qty: 10 RF: 0 prazosin 2 mg capsule 2 mg PO BEDTIME RF: 0 simvastatin 5 mg tablet 5 mg PO BEDTIME RF: 0 gabapentin 100 mg capsule 100 mg PO TID RF: 0 omeprazole 40 mg capsule,delayed release(DR/EC) 40 mg PO BID RF: 0 diclofenac sodium 1 % gel 2 g topical DAILY RF: 0 docusate sodium 100 mg capsule 100 mg PO BID RF: 0 hydroxyzine HCl 10 mg tablet 10 mg PO BID RF: 0 lamotrigine [Lamictal] 100 mg tablet 100 mg PO BID RF: 0 hydrochlorothiazide 12.5 mg tablet 12.5 mg PO DAILY RF: 0 lisinopril 20 mg tablet 20 mg PO DAILY RF: 0 amlodipine 5 mg tablet 5 mg PO DAILY RF: 0 valacyclovir 500 mg tablet 500 mg PO DAILY PRNRF: 0 levothyroxine 137 mcg capsule 137 mcg PO DAILY Qty: 30 RF: 6 Referrals: Mark Wheeler MD [Primary Care Provider] - 2 days (needs referral to spine surgeon, see MRI) Stand Alone Forms: Work/School Release
[2021-07-25 13:47] VITALS: BP 142/90; PULSE 84; RESP 16; TEMP 36.3; O2SAT 97
[2021-07-25] MEDS: Ketorolac Tromethamine 30 MG/ML VIAL IM (14:49)
== END 2021-07-25 14:55 | disposition home or self-care (01) ==
PROVIDERS: Emergency Provider Emergency Medicine; PCP Internal Medicine
DX: G54.4 Lumbosacral root disorders, not elsewhere classified (principal); I10 Essential (primary) hypertension
CPT/HCPCS: 72148; 96372; 99284; 99285; J1885

== ENCOUNTER 2021-10-14 06:14 | Emergency (ER) | payer MEDICAID, SELFPAY ==
[2021-10-14] VITALS (8 sets, daily range): BP systolic 111–157; BP diastolic 52–98; PULSE 75–96; RESP 14–19; TEMP 37.1–37.4; O2SAT 96–98; BMI 42.7
[2021-10-14 06:53] LABS: Basophils Absolute Auto 0.1 X10*3/uL (0.0-0.2); Eosinophils Absolute Auto 0.7 X10*3/uL (0.0-0.4); Eosinophils Percent Auto 6.5 % (0-4); Hematocrit 21.7 % (37.0-47.0); Imm Gran Abs Auto 0.05 X10*3/uL (0.00-0.03); Imm Gran Pct Auto 0.5 % (0.0-0.4); Lymphocytes Absolute Auto 2.9 X10*3/uL (1.2-4.9); Lymphocytes Percent Auto 27.5 % (20-40); Mean Corpuscular HGB Conc 24.9 g/dl (31.0-35.0); Mean Corpuscular Hemoglobin 14.9 pg (27.0-33.0); Mean Platelet Volume 9.3 fL (9.4-12.3); Monocytes Absolute Auto 0.9 X10*3/uL (0.1-1.2); Monocytes Percent Auto 8.2 % (2-11); Neutrophils Absolute Auto 5.9 x10*3/uL (2.0-8.3); Neutrophils Percent Auto 56.3 % (45-73); Platelet Count 560 X10*3/uL (160-400); Red Blood Count 3.63 X10*6/uL (4.20-5.50); Red Cell Distribution Width 21.2 % (11.0-16.0); White Blood Count 10.5 X10*3/uL (4.8-10.8)
[2021-10-14 06:54] LABS: MANUAL DIFF FLAG NO; Mean Corpuscular Volume 59.8 fL (80.0-98.0)
--- NOTE | 2021-10-14 06:54 | ECG_ITS ---
Test Reason : LOW HEMOGLOBIN Blood Pressure : / mmHG Vent. Rate : 089 BPM Atrial Rate : 089 BPM P-R Int : 124 ms QRS Dur : 082 ms QT Int : 386 ms P-R-T Axes : 041 030 046 degrees QTc Int : 469 ms Normal sinus rhythm Normal ECG No previous ECGs available Referred By: Maria Elena Smith Electronically Signed By:VICENTE RUIZ
[2021-10-14 06:56] LABS: Hemoglobin 5.4 g/dl (12.0-16.0)
--- NOTE | 2021-10-14 07:02 | ED.RECABL ---
HPI - Recheck/Abnormal Lab/Rx General Chief Complaint: Recheck/Abnormal Lab/Rx Stated Complaint: Need blood transfusion Time Seen by Provider: 10/14/21 06:45 History of Present Illness HPI narrative: 51-year-old female presents today with having weakness generalized malaise. Worse with ambulation. Patient is on Celebrex at night for arthritis. Patient claims that when she goes upstairs she gets more short winded. Denies any bloody stool. No fever no chills. Had some nausea. Patient was seen by her primary physician labs ordered. Turns out her hemoglobin was in the 5.5 range. She was sent in for further evaluation. Patient has a history of high blood pressure history of smoking. No history of [place]. Patient is from home. No history of strokes. No bloody stool. No chest pain. No diaphoresis. Related Data Home Medications Medication Instructions Recorded Confirmed amlodipine 5 mg tablet 5 mg PO DAILY 11/08/20 05/10/21 diclofenac sodium 1 % topical gel 2 g TOPICAL DAILY g 11/08/20 05/10/21 docusate sodium 100 mg capsule 100 mg PO BID 11/08/20 05/10/21 gabapentin 100 mg capsule 100 mg PO TID 11/08/20 05/10/21 hydrochlorothiazide 12.5 mg tablet 12.5 mg PO DAILY 11/08/20 05/10/21 hydroxyzine HCl 10 mg tablet 10 mg PO BID tab 11/08/20 05/10/21 lamotrigine 100 mg tablet 100 mg PO BID 11/08/20 05/10/21 (Lamictal) lisinopril 20 mg tablet 20 mg PO DAILY 11/08/20 05/10/21 omeprazole 40 mg capsule,delayed 40 mg PO BID 11/08/20 05/10/21 release prazosin 2 mg capsule 2 mg PO BEDTIME 11/08/20 05/10/21 simvastatin 5 mg tablet 5 mg PO BEDTIME 11/08/20 05/10/21 valacyclovir 500 mg tablet 500 mg PO DAILY PRN 11/08/20 05/10/21 Previous Rx's Medication Instructions Recorded levothyroxine 137 mcg capsule 137 mcg PO DAILY #30 cap 11/08/20 celecoxib 100 mg capsule (Celebrex) 100 mg PO .daily at bedtime #30 cap 02/16/21 cyclobenzaprine 10 mg tablet 10 mg PO TID PRN #18 tab 05/03/21 lidocaine 4 % topical patch 1 patch TOPICAL DAILY PRN #10 ea 05/03/21 (Aspercreme (lidocaine)) prednisone 20 mg tablet 60 mg PO DAILY 5 Days #15 tab 05/03/21 ketorolac 10 mg tablet 10 mg PO Q6H PRN 5 Days tab 07/25/21 prednisone 20 mg tablet 60 mg PO DAILY 5 Days #15 tab 07/25/21 Allergies Allergy/AdvReac Type Severity Reaction Status Date / Time Penicillins Allergy Unknown Anaphylaxis Verified 05/10/21 11:35 Review of Systems Review of Systems: Positive generalized malaise positive nausea vomiting has been ongoing for months Yes all other systems are reviewed and are negative [facility] Past Medical History Attestation statement: The following information was validated with the patient. Medical History Essential hypertension Hypothyroidism Obesity due to excess calories Osteoarthritis Surgical History H/O shoulder surgery History of carpal tunnel release Hx of tonsillectomy Family History Family History Father Lung cancer Mother Congestive heart failure Type 2 diabetes mellitus Social History Social History Household Members: None Alcohol intake: current Alcohol intake frequency: a few times a month Patient Tobacco Use Status: Current everyday Tobacco user Use of substances other than those prescribed or required for medical reasons: Unknown Substance Use Type: Crack/Cocaine and Former Substance User Advance Directives: No Patient : No Physical Exam Vital Signs: Vital Signs: Last Vital Signs Temp 98.8 F 10/14/21 11:23 Pulse 96 10/14/21 11:22 Resp 18 10/14/21 11:22 BP 116/55 L 10/14/21 11:22 Pulse Ox 96 10/14/21 10:52 BMI result Body Mass Index 42.7 Appearance: Alert. Oriented X3. No acute distress. Eyes: Pupils equal, round and reactive to light. ENT: Pharynx normal. Neck: Normal inspection. Neck supple. No lymph nodes noted. No crepitus CVS: Normal heart rate and rhythm. Pulses normal. Normal S1 and S2 Respiratory: No respiratory distress. Breath sounds normal. No Wheezing. No rales Abdomen: Soft and nontender. No rigidity. No distention. good BS x4 Skin: Skin warm and dry. Normal skin color. Normal skin turgor. Extremities: No lower extremity edema. Neurovascular intact to all extremities. No Lacerations. No Rash Neuro: Oriented X 3. No motor deficit. No sensory deficit. Moving all extermities. No slurred speech MDM - Recheck/Abnormal Lab/Rx MDM Narrative Medical decision making narrative: Patient's hemoglobin came back at 5.4. This is significantly lower than baseline of 12. Explained to the patient the need for transfusion. Explained the risk and benefit of transfusion including infection and allergic reaction and human error. Patient states understanding. 1 unit of transfusion was given. Patient was to be admitted to the hospital for further evaluation she adamantly refused. Understood the risk including . Patient states understanding. Patient is leaving against medical advice Medical Records Attestation: I reviewed the patient's medical records. Lab Data Result diagrams: 10/14/21 06:48 10/14/21 06:48 Labs: Lab Results 10/14/21 10/14/21 10/14/21 Range/Units 06:48 06:48 07:01 WBC 10.5 (4.8-10.8) X10*3/uL RBC 3.63 L (4.20-5.50) X10*6/uL Hgb 5.4 L* (12.0-16.0) g/dl Hct 21.7 L (37.0-47.0) % MCV 59.8 L (80.0-98.0) fL MCH 14.9 L (27.0-33.0) pg MCHC 24.9 L (31.0-35.0) g/dl RDW 21.2 H (11.0-16.0) % Plt Count 560 H (160-400) X10*3/uL MPV 9.3 L (9.4-12.3) fL Immature Gran % (Auto) 0.5 H (0.0-0.4) % Neut % (Auto) 56.3 (45-73) % Lymph % (Auto) 27.5 (20-40) % [place] % (Auto) 8.2 (2-11) % Eos % (Auto) 6.5 H (0-4) % Baso % (Auto) 1.0 (0-2) % Lymph # (Auto) 2.9 (1.2-4.9) X10*3/uL [place] # (Auto) 0.9 (0.1-1.2) X10*3/uL Eos # (Auto) 0.7 H (0.0-0.4) X10*3/uL Baso # (Auto) 0.1 (0.0-0.2) X10*3/uL Abs Immat Gran (auto) 0.05 H (0.00-0.03) X10*3/uL Absolute Neuts (auto) 5.9 (2.0-8.3) x10*3/uL Absolute Nucleated RBC 0.000 (0.0-0.012) X10*3/uL Nucleated RBC % (auto) 0.0 (0.0-0.2) /100WBC Sodium 141 (135-145) mmol/L Potassium 4.0 (3.3-5.1) mmol/L Chloride 108 (96-108) mmol/L Carbon Dioxide 22 (22-29) mmol/L Anion Gap 15 (12-20) BUN 13 (9-16) mg/dL Creatinine 0.89 (0.5-1.4) mg/dL Estim Creat Clear Calc 96.5 Estimated GFR > 60 Random Glucose 110 (60-115) mg/dL Calcium 9.3 (8.4-10.2) mg/dL Troponin I High Sens (<3.5-17.0) ng/L Stool Occult Blood (NEGATIVE) COVID-19 ([facility]) (Negative) COVID-19 Clin Com Blood Type B Positive Antibody Screen NEGATIVE Crossmatch See Detail 10/14/21 10/14/21 10/14/21 Range/Units 07:01 07:12 07:51 WBC (4.8-10.8) X10*3/uL RBC (4.20-5.50) X10*6/uL Hgb (12.0-16.0) g/dl Hct (37.0-47.0) % MCV (80.0-98.0) fL MCH (27.0-33.0) pg MCHC (31.0-35.0) g/dl RDW (11.0-16.0) % Plt Count (160-400) X10*3/uL MPV (9.4-12.3) fL Immature Gran % (Auto) (0.0-0.4) % Neut % (Auto) (45-73) % Lymph % (Auto) (20-40) % [place] % (Auto) (2-11) % Eos % (Auto) (0-4) % Baso % (Auto) (0-2) % Lymph # (Auto) (1.2-4.9) X10*3/uL [place] # (Auto) (0.1-1.2) X10*3/uL Eos # (Auto) (0.0-0.4) X10*3/uL Baso # (Auto) (0.0-0.2) X10*3/uL Abs Immat Gran (auto) (0.00-0.03) X10*3/uL Absolute Neuts (auto) (2.0-8.3) x10*3/uL Absolute Nucleated RBC (0.0-0.012) X10*3/uL Nucleated RBC % (auto) (0.0-0.2) /100WBC Sodium (135-145) mmol/L Potassium (3.3-5.1) mmol/L Chloride (96-108) mmol/L Carbon Dioxide (22-29) mmol/L Anion Gap (12-20) BUN (9-16) mg/dL Creatinine (0.5-1.4) mg/dL Estim Creat Clear Calc Estimated GFR Random Glucose (60-115) mg/dL Calcium (8.4-10.2) mg/dL Troponin I High Sens 3.6 (<3.5-17.0) ng/L Stool Occult Blood NEGATIVE (NEGATIVE) COVID-19 ([facility]) Negative (Negative) COVID-19 Clin Com See Note Blood Type Antibody Screen Crossmatch Critical Care Time Critical Care Time Critical Care Time: Yes Total Critical Care Time: 40 Attestation: I have personally provided 40 minutes of critical care time exclusive of time spent on separately billable procedures. Time includes review of lab data, radiology results, discussion with consultants, and monitoring for potential decompensation. Interventions were performed as documented above Discharge Plan Discharge Clinical Impression: Anemia Patient Disposition: Left Against Medical Advice Instructions: Anemia (ED), Against Medical Advice (ED) Prescriptions: No Action celecoxib [Celebrex] 100 mg capsule 100 mg PO .daily at bedtime Qty: 30 0RF prednisone 20 mg tablet 60 mg PO DAILY 5 Days Qty: 15 0RF cyclobenzaprine 10 mg tablet 10 mg PO TID PRN (Reason: muscle spasm) Qty: 18 0RF Rx Instructions: side effect is drowsiness. Do not take at home or while working. lidocaine [Aspercreme (lidocaine HCl)] 4 % adhesive patch,medicated 1 patch topical DAILY PRN (Reason: pain) Qty: 10 0RF ketorolac 10 mg tablet 10 mg PO Q6H PRN (Reason: pain) 5 Days 0RF prednisone 20 mg tablet 60 mg PO DAILY 5 Days Qty: 15 0RF prazosin 2 mg capsule 2 mg PO BEDTIME 0RF simvastatin 5 mg tablet 5 mg PO BEDTIME 0RF gabapentin 100 mg capsule 100 mg PO TID 0RF omeprazole 40 mg capsule,delayed release(DR/EC) 40 mg PO BID 0RF diclofenac sodium 1 % gel 2 g topical DAILY 0RF Rx Instructions: apply to single elbow, wrist or hand; for hand includes palm/fingers/back of hand docusate sodium 100 mg capsule 100 mg PO BID 0RF hydroxyzine HCl 10 mg tablet 10 mg PO BID 0RF lamotrigine [Lamictal] 100 mg tablet 100 mg PO BID 0RF hydrochlorothiazide 12.5 mg tablet 12.5 mg PO DAILY 0RF lisinopril 20 mg tablet 20 mg PO DAILY 0RF amlodipine 5 mg tablet 5 mg PO DAILY 0RF valacyclovir 500 mg tablet 500 mg PO DAILY PRN0RF levothyroxine 137 mcg capsule 137 mcg PO DAILY Qty: 30 6RF Referrals: Mark Wheeler MD [Primary Care Provider] - 1 day (Your blood count was extremely low. You were given a blood transfusion. He will offer admission. If you change your mind please come back. He left against medical advice. Bleeding so can cause you to .)
[2021-10-14 07:07] LABS: Anion Gap 15 (12-20); Blood Urea Nitrogen 13 mg/dL (9-16); Calcium 9.3 mg/dL (8.4-10.2); Carbon Dioxide 22 mmol/L (22-29); Chloride 108 mmol/L (96-108); Creatinine Clr Calc Pharmacy 96.5; Estimated Glomerular Filt Rate > 60; Glucose Random 110 mg/dL (60-115); Sodium 141 mmol/L (135-145)
[2021-10-14 07:28] LABS: OBS Int Ctl Valid YES; OBS1 NEGATIVE (NEGATIVE)
[2021-10-14] MEDS: ondansetron HCL 4 MG/2 ML VIAL IVPUSH (07:39)
[2021-10-14 07:45] LABS: Troponin-I High Sensitivity 3.6 ng/L (<3.5-17.0)
[2021-10-14 08:11] LABS: COVID-19 Test Negative (Negative); IDNOW Serial# 16C4AD1C
--- NOTE | 2021-10-14 09:18 | PC.NURSE ---
pt made aware that she will likely be admit to the hospital. she informed t/w that she will not stay, pt reporting she does not like hospitals, has two cats at home with no one to care for them, is waiting on her social security check and [place] in a bad neighborhood and can't afford for it to get stolen . pt aware of alternative should she choose to sign out AMA including risks such as . pt reported she will not stay but agreed to speak with Dr. Smith again after blood transfusion to determine possibility of staying. pt reports if she does leave she will get her things in order and come back .
--- NOTE | 2021-10-14 09:28 | PC.NURSE ---
starting BP prior to blood transfusion was 149/74, after 15 min pt pressure was 111/52 - Dr. Smith notified. pt with no complaints at this time. recheck of BP 122/62
[2021-10-14] MEDS: Acetaminophen 325 MG TABLET 650 MG PO (10:06)
--- NOTE | 2021-10-14 11:43 | PC.NURSE ---
PT CONTINUES TO STATE THAT SHE WANTS TO LEAVE. ONE UNIT OF PRB GIVEN. EXPLAINED TO PT RISKS OF LEAVING INCLUDING . PT REPORTS SHE IS GOING TO GO HOME AND GET SOME THINGS IN ORDER BEFORE SHE CAN COME BACK
== END 2021-10-14 11:44 | disposition left against medical advice (07) ==
PROVIDERS: Emergency Provider Emergency Medicine Emergency Medical Services; PCP Internal Medicine
DX: D64.9 Anemia, unspecified (principal); I10 Essential (primary) hypertension; F17.200 Nicotine dependence, unspecified, uncomplicated
CPT/HCPCS: 36415; 36430; 80048; 82272; 84484; 85025; 86850; 86900; 86901; 86923; 87635; 93005; 96374; 99284; 99291; J2405; P9016

== ENCOUNTER 2021-10-16 16:13 | Inpatient (IN) | payer MEDICAID, SELFPAY ==
--- NOTE | ~2021-10-16 | CT_ITS ---
EXAMINATION: CT ABDOMEN AND PELVIS WITH CONTRAST CLINICAL INFORMATION: Anemia COMPARISON: None TECHNIQUE: Multidetector volumetric images were obtained from the superior aspect of the liver through the pubic symphysis following administration 85 mL of Omnipaque 350 intravenous contrast. Sagittal and coronal reformatted images were obtained on the technologist's workstation. Oral contrast: Yes This CT examination was performed using dose optimization techniques as appropriate, variously including the following: *Automated exposure control *Adjustment of mA and/or kV according to patient size (this includes techniques or standardized protocols for targeted exams where dose is matched to indication/reason for exam; i.e. extremities or head) *Use of iterative reconstruction technique DLP: 730 mGy-cm FINDINGS: LUNG BASES: There are somewhat rounded right basilar airspace opacities including a somewhat more nodular appearing 1.6 cm rounded opacity at the right base (image 10, series 3). There is a small amount of dependent atelectasis at the left base. There are no pleural fluid collections. The imaged heart is unremarkable. LIVER, GALLBLADDER, AND BILIARY TREE: The liver is normal in size, shape, and attenuation. No focal hepatic lesion or biliary ductal dilatation is present. There is a peripherally calcified gallstone within the gallbladder. The gallbladder is otherwise unremarkable and there are no pericholecystic inflammatory changes. PANCREAS: Unremarkable. SPLEEN: Unremarkable spleen. Incidental note of a round 1 cm structure cranial to the splenic hilum most likely representing a splenule. ADRENAL GLANDS: Unremarkable. KIDNEYS AND URETERS: The kidneys are normal in size, shape, and attenuation. No hydronephrosis, hydroureter, or calculi seen. No perinephric stranding. BLADDER: Decompressed. Overall unremarkable contour. No abnormal wall thickening or bladder calculi are seen. GASTROINTESTINAL TRACT: There is a moderate hiatus hernia containing much of the proximal stomach. The stomach is otherwise unremarkable. The small and large bowel are normal in caliber. There is a normal appendix. There is colonic diverticulosis. No bowel wall inflammatory changes are seen. ABDOMINAL WALL: No significant hernia is appreciated. LYMPH NODES: Normal. VASCULAR: Unremarkable. PELVIC VISCERA: The uterus and adnexa are unremarkable. OSSEOUS STRUCTURES: There are multilevel degenerative endplate changes throughout the imaged thoracolumbar spine with loss of disc space at multiple levels. There is facet arthropathy at the lower lumbar levels. There is [id number] degenerative change of the right hip with severe degenerative change of the left hip. There is a densely sclerotic 4 mm structure within the posterior right acetabulum, likely representing a bone island. A similar such 3 mm structure is seen within the superomedial aspect of the right acetabulum. No acute or aggressive bony abnormality is seen. CT/CT abdomen pelvis w con IMPRESSION: Right basilar airspace opacities including a 1.6 cm rounded somewhat nodular opacity with associated groundglass. Overall, the appearance is suggestive of an inflammatory/infectious process., Though most particularly given the more nodular appearance of the 1.6 cm opacity would recommend follow-up CT in 3-6 months. Cholelithiasis. Moderate hiatus hernia. Colonic diverticulosis. Degenerative osteoarthritis of hips and multilevel degenerative change of the thoracolumbar spine. Fleischner guidelines were followed.
[2021-10-16 18:40] VITALS: BP 156/94; PULSE 93; RESP 16; TEMP 36.2; O2SAT 99; BMI 42.7
[2021-10-16 18:59] LABS: MANUAL DIFF FLAG NO
[2021-10-16 19:00] LABS: Basophils Absolute Auto 0.1 X10*3/uL (0.0-0.2); Eosinophils Absolute Auto 0.8 X10*3/uL (0.0-0.4); Eosinophils Percent Auto 6.3 % (0-4); Imm Gran Abs Auto 0.08 X10*3/uL (0.00-0.03); Imm Gran Pct Auto 0.7 % (0.0-0.4); Lymphocytes Absolute Auto 3.7 X10*3/uL (1.2-4.9); Lymphocytes Percent Auto 30.4 % (20-40); Mean Corpuscular HGB Conc 26.2 g/dl (31.0-35.0); Mean Corpuscular Hemoglobin 16.3 pg (27.0-33.0); Mean Platelet Volume 9.2 fL (9.4-12.3); Monocytes Absolute Auto 0.8 X10*3/uL (0.1-1.2); Monocytes Percent Auto 6.6 % (2-11); Neutrophils Absolute Auto 6.7 x10*3/uL (2.0-8.3); Platelet Count 616 X10*3/uL (160-400); Red Blood Count 4.16 X10*6/uL (4.20-5.50); Red Cell Distribution Width 25.2 % (11.0-16.0); White Blood Count 12.1 X10*3/uL (4.8-10.8)
[2021-10-16 19:07] LABS: Mean Corpuscular Volume 62.5 fL (80.0-98.0)
[2021-10-16 19:22] LABS: Hemoglobin 6.8 g/dl (12.0-16.0)
[2021-10-16 19:37] LABS: Anion Gap 15 (12-20); Blood Urea Nitrogen 15 mg/dL (9-16); Calcium 9.7 mg/dL (8.4-10.2); Carbon Dioxide 23 mmol/L (22-29); Chloride 104 mmol/L (96-108); Creatinine Clr Calc Pharmacy 88.6; Estimated Glomerular Filt Rate > 60; Glucose Random 123 mg/dL (60-115); Potassium 4.1 mmol/L (3.3-5.1); Sodium 138 mmol/L (135-145)
[2021-10-16 20:17] VITALS: BP 157/99; PULSE 93; RESP 18; TEMP 36.8; O2SAT 96
--- NOTE | 2021-10-16 20:29 | PC.NURSE ---
pt a&ox3, vss - elevated BP, previously seen at [facility] for low H&H - received 1u of blood before pt discharged/was unable to be admited as planned due to personal obligations. pt returned as directed for further diagnostic workup/treatment. pt brought stool sample per PCP request, obx sent to lab. provider in room.
[2021-10-16 20:35] LABS: OBS Int Ctl Valid YES; OBS1 POSITIVE (NEGATIVE)
--- NOTE | 2021-10-16 20:41 | ED.RECABL ---
HPI - Recheck/Abnormal Lab/Rx General Chief Complaint: Recheck/Abnormal Lab/Rx Stated Complaint: needs blood transfusion and testing Time Seen by Provider: 10/16/21 20:11 Source: patient Mode of arrival: ambulatory Limitations: no limitations History of Present Illness HPI narrative: 51-year-old female past medical history significant for hypothyroidism, hypertension, current daily smoker obesity presenting today with nonspecific complaints of weakness malaise. Patient tells me that she is coming into the emergency department mainly because she was seen here on October 14 by , who found the patient was anemic and required 1 unit of packed red blood cells, he wanted to admit her to the hospital for further evaluation but she refused at that point and she left against medical advice. She tells me that she now changes her mind and would like to be admitted to the hospital for further evaluation, she tells me she has been feeling a little bit more short of breath than usual with ambulation, and she feels dizzy at times when she bends down particularly to clean her litter box. She tells me that she had routine lab work done by her primary care provider they called her to tell her her hemoglobin was 5.5, she came in for a blood transfusion with improvement. She is now back today with concerns. She has no history of heart disease or stroke. She denies bloody stools. She denies chest pain, shortness of breath, vision changes. complaint: abnormal lab Initial visit (ago): day(s) (2) Returns today for: called because of abnormal lab/test Symptoms since prior visit: no new symptoms Associated symptoms: none Related Data Home Medications Medication Instructions Recorded Confirmed amlodipine 5 mg tablet 5 mg PO DAILY 11/08/20 05/10/21 diclofenac sodium 1 % topical gel 2 g TOPICAL DAILY g 11/08/20 05/10/21 docusate sodium 100 mg capsule 100 mg PO BID 11/08/20 05/10/21 gabapentin 100 mg capsule 100 mg PO TID 11/08/20 05/10/21 hydrochlorothiazide 12.5 mg tablet 12.5 mg PO DAILY 11/08/20 05/10/21 hydroxyzine HCl 10 mg tablet 10 mg PO BID tab 11/08/20 05/10/21 lamotrigine 100 mg tablet 100 mg PO BID 11/08/20 05/10/21 (Lamictal) lisinopril 20 mg tablet 20 mg PO DAILY 11/08/20 05/10/21 omeprazole 40 mg capsule,delayed 40 mg PO BID 11/08/20 05/10/21 release prazosin 2 mg capsule 2 mg PO BEDTIME 11/08/20 05/10/21 simvastatin 5 mg tablet 5 mg PO BEDTIME 11/08/20 05/10/21 valacyclovir 500 mg tablet 500 mg PO DAILY PRN 11/08/20 05/10/21 Previous Rx's Medication Instructions Recorded levothyroxine 137 mcg capsule 137 mcg PO DAILY #30 cap 11/08/20 celecoxib 100 mg capsule (Celebrex) 100 mg PO .daily at bedtime #30 cap 02/16/21 cyclobenzaprine 10 mg tablet 10 mg PO TID PRN #18 tab 05/03/21 lidocaine 4 % topical patch 1 patch TOPICAL DAILY PRN #10 ea 05/03/21 (Aspercreme (lidocaine)) prednisone 20 mg tablet 60 mg PO DAILY 5 Days #15 tab 05/03/21 ketorolac 10 mg tablet 10 mg PO Q6H PRN 5 Days tab 07/25/21 prednisone 20 mg tablet 60 mg PO DAILY 5 Days #15 tab 07/25/21 Allergies Allergy/AdvReac Type Severity Reaction Status Date / Time Penicillins Allergy Unknown Anaphylaxis Verified 05/10/21 11:35 Review of Systems Review of Systems: Constitutional : No Weight loss, No Fever, No Chills, No Fatigue, No Malaise ENT/Mouth : No sore throat, No Rhinorrhea Eyes: No Eye Pain, No Swelling, No Redness Cardiovascular : No Chest Pain, No SOB, No Dyspnea on Exertion, No Orthopnea, No Edema, No Palpitations Respiratory : No Cough, No Sputum, No Wheezing Gastrointestinal : No Nausea, No Vomiting, No Diarrhea, No Constipation, No abdominal Pain, No Hematochezia, No Melena Genitourinary : No Dysuria, No Urinary Frequency, No Hematuria, Musculoskeletal : No joint pain, No Myalgias, No Joint Swelling Skin : No Skin Lesions, No rash Neuro : + Weakness, No Numbness, + Dizziness, No Headache Psych : No Anxiety/Panic, No Depression All other systems reviewed and are negative Yes all other systems are reviewed and are negative PMFSH Past Medical History Attestation statement: The following information was validated with the patient. Source: nursing notes reviewed Medical History Essential hypertension Hypothyroidism Obesity due to excess calories Osteoarthritis Surgical History H/O shoulder surgery History of carpal tunnel release Hx of tonsillectomy Family History Family History Father Lung cancer Mother Congestive heart failure Type 2 diabetes mellitus Social History Social History Household Members: None Alcohol intake: former Patient Tobacco Use Status: Current everyday Tobacco user Smoked in Last 30 Days: Yes Use of substances other than those prescribed or required for medical reasons: No Substance Use Type: Crack/Cocaine and Former Substance User Advance Directives: No Advance Directives Information Provided: Yes Patient : No Physical Exam Vital Signs: Vital Signs: Last Vital Signs Temp 98.9 F 10/16/21 23:45 Pulse 86 10/16/21 23:45 Resp 19 10/16/21 23:45 BP 152/77 H 10/16/21 23:45 Pulse Ox 96 10/16/21 23:04 BMI result Body Mass Index 42.7 Vital signs stable Appearance: Alert.? Oriented X3.? No acute distress.? Head: Normocephalic, atraumatic, no step-offs or deformities Eyes: Pupils equal, round and reactive to light.? ENT: Pharynx normal.? Neck: Normal inspection.? Neck supple.? CVS: Normal heart rate and rhythm.? Pulses normal.? Respiratory: No respiratory distress.? Breath sounds normal.? Abdomen: Soft and nontender.? Skin: Skin warm and dry.? Palor. ? Normal skin turgor.? Rectal exam: Deferred Extremities: No lower extremity edema.? No calf ttp. 5/5 strength to bilateral upper and lower extremities Back: No midline tenderness, no C-spine tenderness, full range of motion, no CVA tenderness bilaterally Neuro: Oriented X 3.? No motor deficit.? No sensory deficit. CN 2-12 intact Course Reevaluation(s) Reevaluation #1: Patient's hemoglobin 6.8 again lower than her baseline of 12.3. At this time patient will be transfused with 1 unit of packed red blood cells. Educated patient on risks and benefits of procedure including infection, human error, hemolysis, transmission of infectious diseases. Written consent in chart. OBS positive. Likely GI bleed. Time: 20:49 Reevaluation #2: Patient will be admitted to the hospital team for anemia, GI bleed and will likley require GI consullt. Time: 23:54 MDM - Recheck/Abnormal Lab/Rx MDM Narrative Medical decision making narrative: 2317 51 yo f presents w/ dizziness, weakness and vague sob X1 week PE significant for palor Plan- labs, obs, type and screen, cardiac monitoring Medical Records Attestation: I reviewed the patient's medical records. Lab Data Attestation: I reviewed the patient's lab results. Result diagrams: 10/16/21 18:55 10/16/21 18:55 Labs: Lab Results 10/16/21 10/16/21 10/16/21 Range/Units 18:55 18:55 20:25 WBC 12.1 H (4.8-10.8) X10*3/uL RBC 4.16 L (4.20-5.50) X10*6/uL Hgb 6.8 L* D (12.0-16.0) g/dl Hct 26.0 L (37.0-47.0) % MCV 62.5 L (80.0-98.0) fL MCH 16.3 L (27.0-33.0) pg MCHC 26.2 L (31.0-35.0) g/dl RDW 25.2 H (11.0-16.0) % Plt Count 616 H (160-400) X10*3/uL MPV 9.2 L (9.4-12.3) fL Immature Gran % (Auto) 0.7 H (0.0-0.4) % Neut % (Auto) 55.0 (45-73) % Lymph % (Auto) 30.4 (20-40) % [place] % (Auto) 6.6 (2-11) % Eos % (Auto) 6.3 H (0-4) % Baso % (Auto) 1.0 (0-2) % Lymph # (Auto) 3.7 (1.2-4.9) X10*3/uL [place] # (Auto) 0.8 (0.1-1.2) X10*3/uL Eos # (Auto) 0.8 H (0.0-0.4) X10*3/uL Baso # (Auto) 0.1 (0.0-0.2) X10*3/uL Abs Immat Gran (auto) 0.08 H (0.00-0.03) X10*3/uL Absolute Neuts (auto) 6.7 (2.0-8.3) x10*3/uL Absolute Nucleated RBC 0.000 (0.0-0.012) X10*3/uL Nucleated RBC % (auto) 0.0 (0.0-0.2) /100WBC Sodium 138 (135-145) mmol/L Potassium 4.1 (3.3-5.1) mmol/L Chloride 104 (96-108) mmol/L Carbon Dioxide 23 (22-29) mmol/L Anion Gap 15 (12-20) BUN 15 (9-16) mg/dL Creatinine 0.97 (0.5-1.4) mg/dL Estim Creat Clear Calc 88.6 Estimated GFR > 60 Random Glucose 123 H (60-115) mg/dL Calcium 9.7 (8.4-10.2) mg/dL Stool Occult Blood POSITIVE (NEGATIVE) COVID-19 ([facility]DO) (Negative) COVID-19 Clin Com Blood Type Antibody Screen Crossmatch 10/16/21 10/16/21 Range/Units 21:11 21:37 WBC (4.8-10.8) X10*3/uL RBC (4.20-5.50) X10*6/uL Hgb (12.0-16.0) g/dl Hct (37.0-47.0) % MCV (80.0-98.0) fL MCH (27.0-33.0) pg MCHC (31.0-35.0) g/dl RDW (11.0-16.0) % Plt Count (160-400) X10*3/uL MPV (9.4-12.3) fL Immature Gran % (Auto) (0.0-0.4) % Neut % (Auto) (45-73) % Lymph % (Auto) (20-40) % [place] % (Auto) (2-11) % Eos % (Auto) (0-4) % Baso % (Auto) (0-2) % Lymph # (Auto) (1.2-4.9) X10*3/uL [place] # (Auto) (0.1-1.2) X10*3/uL Eos # (Auto) (0.0-0.4) X10*3/uL Baso # (Auto) (0.0-0.2) X10*3/uL Abs Immat Gran (auto) (0.00-0.03) X10*3/uL Absolute Neuts (auto) (2.0-8.3) x10*3/uL Absolute Nucleated RBC (0.0-0.012) X10*3/uL Nucleated RBC % (auto) (0.0-0.2) /100WBC Sodium (135-145) mmol/L Potassium (3.3-5.1) mmol/L Chloride (96-108) mmol/L Carbon Dioxide (22-29) mmol/L Anion Gap (12-20) BUN (9-16) mg/dL Creatinine (0.5-1.4) mg/dL Estim Creat Clear Calc Estimated GFR Random Glucose (60-115) mg/dL Calcium (8.4-10.2) mg/dL Stool Occult Blood (NEGATIVE) COVID-19 ([facility]DO) Negative (Negative) COVID-19 Clin Com See Note Blood Type B Positive Antibody Screen NEGATIVE Crossmatch See Detail Critical Care Time Critical Care Time Critical Care Time: No Discharge Plan Discharge Clinical Impression: Anemia, GI bleed Patient Disposition: Admitted As Inpatient
[2021-10-16] MEDS: 0.9 % Sodium Chloride 1,000 ML 999 ML IV (21:30)
[2021-10-16 21:40] LABS: COVID-19 Test Negative (Negative)
[2021-10-16 22:00] VITALS: BP 176/95; PULSE 82; RESP 18; TEMP 37.2; O2SAT 100
--- NOTE | 2021-10-16 22:09 | PC.NURSE ---
patient a&ox3, vss, registered nurse cardiac nsr, ivf running per order, call hull within reach, will continue to monitor. t&s drawn per order
[2021-10-16 23:04] VITALS: BP 159/85; PULSE 92; RESP 14; TEMP 37.2; O2SAT 96
[2021-10-16 23:29] VITALS: BP 153/90; PULSE 89; RESP 22; TEMP 36.9
--- NOTE | 2021-10-16 23:33 | PC.NURSE ---
pt a&o, denies any sob or chest pain at this time. First unit of blood started. Will continue to monitor.
[2021-10-16 23:45] VITALS: BP 152/77; PULSE 86; RESP 19; TEMP 37.2
[2021-10-17] VITALS (11 sets, daily range): BP systolic 133–178; BP diastolic 75–104; PULSE 68–102; RESP 12–23; TEMP 36.4–37.3; O2SAT 95–99
--- NOTE | 2021-10-17 01:17 | PM.IMHP ---
History of Present Illness Date of Service: 10/17/21 Chief Complaint: anemia 51-year-old female with past medical history of hypertension, hypothyroidism, obesity, PTSD, presents to the hospital after routine labs showed anemia. Patient reports that she was here on Saturday as her PCP called her telling her to go to the ED as her Hgb was low, patient reports that she could not stay on Saturday because she had to take care of some business. She returns today to be managed properly. At the time of previous presentation she received 1 unit of PRBC. Patient denies any headache, no dizziness, no shortness of breath but reports significant fatigue over the past few months. Patient denies any melena, hematochezia, but reports that she has been experiencing significant heartburn, and has had chronic problems with her stomach for she is now on pantoprazole twice a day as well as Carafate. She has also had iron deficiency anemia and is on iron supplement. reports that she has an appointment with Gastroenterology outpatient for management of her chronic heartburn. She has not been experiencing vomiting and significant heartburn after every meal and therefore she tries to avoid most solid and spicy foods. reports history of NSAID use but has not used it in the past few months. At this time she denies any abdominal pain, no chest pain, no shortness of breath, no dizziness, no headache, no change in vision, no diarrhea constipation, no urinary symptoms and no lower extremity edema. On arrival patient hemodynamically stable with no significant abnormal vitals Labs are significant for WBC count of 12.1, hemoglobin of 6.8, MCV of 62.5, stool occult positive. Patient receiving 1 unit of PRBC and will be admitted for further evaluation of GI bleed Review of Systems Review of Systems: Yes all other systems are reviewed and are negative [facility] Medical History Essential hypertension Hypothyroidism Obesity due to excess calories Osteoarthritis Family History Father Lung cancer Mother Congestive heart failure Type 2 diabetes mellitus Surgical History H/O shoulder surgery History of carpal tunnel release Hx of tonsillectomy Social History Household Members: None Alcohol intake: former Patient Tobacco Use Status: Current everyday Tobacco user Smoked in Last 30 Days: Yes Use of substances other than those prescribed or required for medical reasons: No Substance Use Type: Crack/Cocaine and Former Substance User Advance Directives: No Advance Directives Information Provided: Yes Patient : No Meds Allergies Allergy/AdvReac Type Severity Reaction Status Date / Time Penicillins Allergy Unknown Anaphylaxis Verified 05/10/21 11:35 Home Medications Medication Instructions Recorded Confirmed Last Taken Type amlodipine 5 mg tablet 5 mg PO DAILY 11/08/20 05/10/21 Unknown History diclofenac sodium 1 % topical gel 2 g TOPICAL DAILY g 11/08/20 05/10/21 Unknown History docusate sodium 100 mg capsule 100 mg PO BID 11/08/20 05/10/21 Unknown History gabapentin 100 mg capsule 100 mg PO TID 11/08/20 05/10/21 Unknown History hydrochlorothiazide 12.5 mg tablet 12.5 mg PO DAILY 11/08/20 05/10/21 Unknown History hydroxyzine HCl 10 mg tablet 10 mg PO BID tab 11/08/20 05/10/21 Unknown History lamotrigine 100 mg tablet 100 mg PO BID 11/08/20 05/10/21 Unknown History (Lamictal) lisinopril 20 mg tablet 20 mg PO DAILY 11/08/20 05/10/21 Unknown History omeprazole 40 mg capsule,delayed 40 mg PO BID 11/08/20 05/10/21 Unknown History release prazosin 2 mg capsule 2 mg PO BEDTIME 11/08/20 05/10/21 Unknown History simvastatin 5 mg tablet 5 mg PO BEDTIME 11/08/20 05/10/21 Unknown History valacyclovir 500 mg tablet 500 mg PO DAILY PRN 11/08/20 05/10/21 Unknown History Physical Exam Vital Signs and Narrative: Vital Signs: Last Vital Signs Temp 98.9 F 10/16/21 23:45 Pulse 100 10/17/21 00:03 Resp 23 H 10/17/21 00:03 BP 152/77 H 10/17/21 00:03 Pulse Ox 95 10/17/21 00:03 BMI result Body Mass Index 42.7 Const: General: cooperative and no acute distress Orientation/consciousness: patient oriented x3 Eyes: General: appearance normal, both eyes and all related structures Pupils: Equal, round and reactive pupils present Resp: Effort & Inspection: normal respiratory effort Auscultation: clear to auscultation bilaterally Cardio: Rate: regular rate Rhythm: regular rhythm GI: Other: No abdominal tenderness Palpation (GI): Soft to palpation Auscultation: normal bowel sounds Skin: General skin exam: no rashes or lesions noted Neuro: General: patient oriented x3 Cranial nerves: Yes Equal, round and reactive pupils present Cognition (Neuro): normal cognition Extrem: General: Yes normal to inspection and Yes no pedal edema Results Labs CBC and Chem 7: 10/16/21 18:55 10/16/21 18:55 Labs: Laboratory Results - last 24 hr 10/16/21 10/16/21 10/16/21 18:55 18:55 20:25 MCV 62.5 L MCH 16.3 L MCHC 26.2 L RDW 25.2 H Plt Count 616 H MPV 9.2 L Immature Gran % (Auto) 0.7 H Neut % (Auto) 55.0 Lymph % (Auto) 30.4 [place] % (Auto) 6.6 Eos % (Auto) 6.3 H Baso % (Auto) 1.0 Lymph # (Auto) 3.7 [place] # (Auto) 0.8 Eos # (Auto) 0.8 H Baso # (Auto) 0.1 Abs Immat Gran (auto) 0.08 H Absolute Neuts (auto) 6.7 Absolute Nucleated RBC 0.000 Nucleated RBC % (auto) 0.0 Anion Gap 15 Estim Creat Clear Calc 88.6 Estimated GFR > 60 Random Glucose 123 H Calcium 9.7 Stool Occult Blood POSITIVE COVID-19 ([facility]DO) COVID-19 Clin Com Blood Type Antibody Screen Crossmatch 10/16/21 10/16/21 21:11 21:37 MCV MCH MCHC RDW Plt Count MPV Immature Gran % (Auto) Neut % (Auto) Lymph % (Auto) [place] % (Auto) Eos % (Auto) Baso % (Auto) Lymph # (Auto) [place] # (Auto) Eos # (Auto) Baso # (Auto) Abs Immat Gran (auto) Absolute Neuts (auto) Absolute Nucleated RBC Nucleated RBC % (auto) Anion Gap Estim Creat Clear Calc Estimated GFR Random Glucose Calcium Stool Occult Blood COVID-19 ([facility]INALDO) Negative COVID-19 Clin Com See Note Blood Type B Positive Antibody Screen NEGATIVE Crossmatch See Detail Assessment and Plan (1) GI bleed: Status: Acute (2) Anemia: Status: Acute Plan 51-year-old female with past medical history of GERD, hypertension, PTSD, and hypothyroidism presents to the hospital after routine labs showed significant anemia with a hemoglobin of 5.4 # GI bleed - likely upper given her history of significant heartburn, patient reports that she is chronically on pantoprazole and Carafate and has had difficulty with epigastric pain for a long time - hemodynamically stable - will treat with pantoprazole IV b.i.d. - GI consulted - NPO after midnight # microcytic anemia - acute on chronic - likely secondary to GI bleed - no other source identified as she is menopausal for the past 5 years - patient is status post 2 unit of PRBC ( 1 received on Saturday 10/14) - follow H&H # hypertension - elevated - resume home medications once reviewed by pharmacy # hypothyroidism - continue levothyroxine DVT prophylaxis: SCD Given significant drop in hemoglobin, patient will need admission for evaluation of GI bleed and treatment of symptomatic anemia Quality Stroke Does the patient have a stroke diagnosis?: No VTE Prior VTE?: No VTE Risk Level:: Medical - moderate - high VTE Device Contraindication: N/A - Device Ordered VTE Drug Contraindication: Treatment Not Indicated
[2021-10-17] MEDS: Pantoprazole Sodium 40 MG/10 ML VIAL IVPUSH ×2 (01:51→16:30)
[2021-10-17] MEDS: Morphine Sulfate 4 MG/ML CARTRIDGE IVPUSH (01:53)
[2021-10-17] MEDS: LORazepam 2 MG/ML VIAL 0.5 MG IVPUSH (01:56)
--- NOTE | 2021-10-17 02:10 | PC.NURSE ---
pt medicated for pain management.
--- NOTE | 2021-10-17 03:16 | PC.NURSE ---
pt changed into a hospital bed. Vitals taken. No sign of distress at this time.
--- NOTE | 2021-10-17 06:57 | PM.GICN ---
History of Present Illness Data of Consult Service Date: 10/17/21 Requesting physician[facility] Primary Care Provider: Mark Wheeler MD HPI Reason for consult: anemia 51-year-old female past medical history significant for hypothyroidism, hypertension, current daily smoker and obesity who I am seeing for assessment of anemia. She presented few days back with fatigue and malaise, PCP checked HGB and was 5.5 g/dl, so sent to ED and given 1 unit of blood, refused admission at that time. Now came back with ongoing malaise, HGB around 6-7 g/dl. Still has weakness and malaise. She denies overt GI bleeding, no rectal bleeding, no melena, no hematuria, no vaginal bleeding. Weight and appetite have been normal, She does have bad regurgitation and nausea with heartburn, PCP has given her PPI and carafate with variable effect. She is not taking NSAID, but on BELLAMY II --celebrex. She has chronic constipation, stool habits have been stable She never had an EGD or colonoscopy. Review of Systems Review of Systems: Constitutional : No Weight loss, No Fever, No Chills, No Fatigue, No Malaise ENT/Mouth : No sore throat, No Rhinorrhea Eyes: No Eye Pain, No Swelling, No Redness Cardiovascular : No Chest Pain, No SOB, No Dyspnea on Exertion, No Orthopnea, No Edema, No Palpitations Respiratory : No Cough, No Sputum, No Wheezing Gastrointestinal : As above Pain, No Hematochezia, No Melena Genitourinary : No Dysuria, No Urinary Frequency, No Hematuria, Musculoskeletal : No joint pain, No Myalgias, No Joint Swelling Skin : No Skin Lesions, No rash Neuro : + Weakness, No Numbness, + Dizziness, No Headache Psych : No Anxiety/Panic, No Depression All other systems reviewed and are negative Yes all other systems are reviewed and are negative [facility] Past Medical History Medical History Essential hypertension Hypothyroidism Obesity due to excess calories Osteoarthritis Family History Family History Father Lung cancer Mother Congestive heart failure Type 2 diabetes mellitus Surgical History Surgical History H/O shoulder surgery History of carpal tunnel release Hx of tonsillectomy Social History Social History Household Members: None Housing: Other Housing Other:: sober community Do you presently have visiting nurse or other home services: No Alcohol intake: former Patient Tobacco Use Status: Never used Tobacco Smoked in Last 30 Days: Yes Use of substances other than those prescribed or required for medical reasons: No Substance Use Type: Crack/Cocaine and Former Substance User Currently Displaying Signs/Symptoms of Drug Intoxication Withdrawal: No Have you been hit, kicked, punched, or otherwise hurt by someone within the past year? If so, by whom?: No Do you feel safe in your current relationship?: Yes Is there a partner from a previous relationship who is making you feel unsafe now?: No Are you made to feel afraid or neglected: No Advance Directives: No Advance Directives Information Provided: Yes Do you have thoughts of harming others: None Do you have a plan to hurt others: No Plan Recently lost weight without trying: No Patient : No service: No Current occupational status: employed Meds Allergies Allergy/AdvReac Type Severity Reaction Status Date / Time Penicillins Allergy Unknown Anaphylaxis Verified 05/10/21 11:35 Active Medications: Current Medications Acetaminophen (Acetaminophen 325 Mg Tablet) 650 mg PO Q6H PRN PRN Reason: Pain, Mild (Pain Scale 1-3) Ondansetron HCl (Ondansetron Hcl 4 Mg/2 Ml Vial) 4 mg IVPUSH Q8H PRN PRN Reason: Nausea and Vomiting Pantoprazole Sodium (Pantoprazole Sodium 40 Mg/10 Ml Vial) 40 mg IVPUSH BID@0630,1630 [facility] Last Admin: 10/17/21 05:00 Dose: Not Given Documented by: Sodium Chloride (0.9 % Sodium Chloride Flush 3 Ml Syringe) 3 ml IVFLUSH QSHIFT [facility] Home Medications Medication Instructions Recorded Confirmed Last Taken Type amlodipine 5 mg tablet 5 mg PO DAILY 11/08/20 05/10/21 Unknown History diclofenac sodium 1 % topical gel 2 g TOPICAL DAILY g 11/08/20 05/10/21 Unknown History docusate sodium 100 mg capsule 100 mg PO BID 11/08/20 05/10/21 Unknown History gabapentin 100 mg capsule 100 mg PO TID 11/08/20 05/10/21 Unknown History hydrochlorothiazide 12.5 mg tablet 12.5 mg PO DAILY 11/08/20 05/10/21 Unknown History hydroxyzine HCl 10 mg tablet 10 mg PO BID tab 11/08/20 05/10/21 Unknown History lamotrigine 100 mg tablet 100 mg PO BID 11/08/20 05/10/21 Unknown History (Lamictal) lisinopril 20 mg tablet 20 mg PO DAILY 11/08/20 05/10/21 Unknown History omeprazole 40 mg capsule,delayed 40 mg PO BID 11/08/20 05/10/21 Unknown History release prazosin 2 mg capsule 2 mg PO BEDTIME 11/08/20 05/10/21 Unknown History simvastatin 5 mg tablet 5 mg PO BEDTIME 11/08/20 05/10/21 Unknown History valacyclovir 500 mg tablet 500 mg PO DAILY PRN 11/08/20 05/10/21 Unknown History Physical Exam Vital Signs: Vital Signs: Last Vital Signs Temp 98.8 F 10/17/21 01:20 Pulse 89 10/17/21 03:16 Resp 12 10/17/21 03:16 BP 164/87 H 10/17/21 03:16 Pulse Ox 95 10/17/21 00:03 BMI result Body Mass Index 42.7 EXAM: GENERAL: The patient is well developed and nontoxic, obese VITAL SIGNS:see workflow HEENT: Nonicteric sclerae, PERRLA, EOMI. Oropharynx clear. Moist mucous membranes. Conjunctivae appear well perfused. No thyroid mass. CHEST: Chest wall is nontender. HEART: Regular rate and rhythm without murmurs. LUNGS: Clear to auscultation bilaterally. ABDOMEN: Soft, positive bowel sounds, nontender, no organomegaly.no flank tenderness SKIN: No rash, no excessive bruising, petechiae, or purpura. NEUROLOGIC: Cranial nerves II-XII intact without motor/sensory deficit. PSYCH: slightly agitated Results Labs CBC & Chem 7: 10/17/21 07:51 10/17/21 07:51 Labs: Short CBC 10/16/21 Range/Units 18:55 WBC 12.1 H (4.8-10.8) X10*3/uL Hgb 6.8 L* D (12.0-16.0) g/dl Hct 26.0 L (37.0-47.0) % Plt Count 616 H (160-400) X10*3/uL BMP 10/16/21 18:55 Sodium 138 Potassium 4.1 Chloride 104 Carbon Dioxide 23 BUN 15 Creatinine 0.97 Calcium 9.7 Assessment and Plan (1) Hypochromic microcytic anemia: Status: Acute Plan 1/ microcytic anemia, likely chronic low level bleeding wide differentials: esophagitis, neoplasia, PUD, celiac PLAN: 1/ Explained next step is normally EGD and colonoscopy, patient said she is very tired, expressed frustration at being in the hospital and not being at home. She refused EGD/colo, I did explain neoplasia as one of the differentials, but she maintains she does not want these. she is agreeable to a CT A/P--would do with PO and IV contrast--if she changes her mind on endoscopy please let me know Procedures Date of Service Date of Service: 10/17/21
[2021-10-17 08:33] LABS: MANUAL DIFF FLAG NO
[2021-10-17 08:36] LABS: Basophils Absolute Auto 0.1 X10*3/uL (0.0-0.2); Basophils Percent Auto 1.1 % (0-2); Eosinophils Absolute Auto 0.7 X10*3/uL (0.0-0.4); Eosinophils Percent Auto 6.9 % (0-4); Hematocrit 27.2 % (37.0-47.0); Hemoglobin 7.2 g/dl (12.0-16.0); Imm Gran Abs Auto 0.05 X10*3/uL (0.00-0.03); Imm Gran Pct Auto 0.5 % (0.0-0.4); Lymphocytes Absolute Auto 2.9 X10*3/uL (1.2-4.9); Mean Corpuscular HGB Conc 26.5 g/dl (31.0-35.0); Mean Corpuscular Hemoglobin 17.3 pg (27.0-33.0); Mean Corpuscular Volume 65.2 fL (80.0-98.0); Mean Platelet Volume 9.5 fL (9.4-12.3); Monocytes Absolute Auto 0.9 X10*3/uL (0.1-1.2); Monocytes Percent Auto 9.2 % (2-11); Neutrophils Absolute Auto 4.8 x10*3/uL (2.0-8.3); Neutrophils Percent Auto 51.3 % (45-73); Platelet Count 522 X10*3/uL (160-400); Red Blood Count 4.17 X10*6/uL (4.20-5.50); Red Cell Distribution Width 26.6 % (11.0-16.0); White Blood Count 9.4 X10*3/uL (4.8-10.8)
--- NOTE | 2021-10-17 08:41 | MHC.CM.PN ---
CM met with Patient at bedside. Patient lives alone in an apartment and uses a cane to assist with mobility. Home/no services is the goal for dc and CM has initiated and will follow for dc planning.Patient works at [employer] and is presently on a DANI[employer] for [employer]. PCP is Dr. Wheeler and Patient has received Covid/Moderna vax X2.
[2021-10-17 09:10] LABS: Anion Gap 13 (12-20); Blood Urea Nitrogen 13 mg/dL (9-16); Carbon Dioxide 23 mmol/L (22-29); Chloride 107 mmol/L (96-108); Creatinine Clr Calc Pharmacy 106.1; Estimated Glomerular Filt Rate > 60; Glucose Random 91 mg/dL (60-115); Potassium 4.4 mmol/L (3.3-5.1); Sodium 139 mmol/L (135-145)
--- NOTE | 2021-10-17 11:02 | PHA.MEDREC ---
Pharmacy Consult ? Medication Reconciliation Pharmacy has completed the medication reconciliation. Patient reports taking medications that have not been filled in awhile including amlodpine (04/2021), HCTZ (05/2021), levotyroxine (04/2021), and simvastatin 5 mg (08/04/21 x 30 days). Patient reports she no longer take lamotrigine or guanfacine. Destiny Doshi, EligioD
[2021-10-17] MEDS: iohexoL 350 MG/ML 100 ML INFUS..BTL IV (15:00)
[2021-10-17] MEDS: Barium Sulfate Oral (Vanilla) 450 ML ORAL.SUSP 900 ML PO (15:01)
[2021-10-17] MEDS: 0.9 % Sodium Chloride Flush 3 ML SYRINGE IVFLUSH ×2 (16:30→21:20)
[2021-10-17] MEDS: hydroCHLOROthiazide 12.5 MG TABLET PO (17:52)
[2021-10-17] MEDS: amLODIPine Besylate 5 MG TABLET PO (17:52)
[2021-10-17] MEDS: Atorvastatin Calcium 10 MG TABLET 5 MG PO (21:19)
[2021-10-17] MEDS: Gabapentin 300 MG CAPSULE PO (21:19)
[2021-10-17] MEDS: lisinopriL 20 MG TABLET PO (21:19)
[2021-10-17] MEDS: Prazosin HCL 1 MG CAPSULE 2 MG PO (21:20)
[2021-10-17] MEDS: Celecoxib 100 MG CAPSULE PO (21:20)
[2021-10-17] MEDS: Docusate Sodium 100 MG CAPSULE PO (21:20)
[2021-10-17] MEDS: Sucralfate Oral Suspension 1 GM/10 ML ORAL.SUSP PO (21:20)
[2021-10-18] VITALS: BP 94/52; PULSE 87; RESP 16; TEMP 36.5; O2SAT 97
[2021-10-18 04:00] VITALS: BP 147/68; PULSE 77; RESP 16; TEMP 36.2; O2SAT 95
[2021-10-18] MEDS: Levothyroxine Sodium 112 MCG, Levothyroxine Sodium 25 MCG 137 MCG PO (06:08)
[2021-10-18] MEDS: Pantoprazole Sodium 40 MG/10 ML VIAL IVPUSH (06:09)
[2021-10-18 06:53] LABS: Hematocrit 30.6 % (37.0-47.0); Mean Corpuscular HGB Conc 26.1 g/dl (31.0-35.0); Mean Corpuscular Hemoglobin 17.2 pg (27.0-33.0); Mean Corpuscular Volume 65.7 fL (80.0-98.0); Mean Platelet Volume 9.7 fL (9.4-12.3); Platelet Count 551 X10*3/uL (160-400); Red Blood Count 4.66 X10*6/uL (4.20-5.50); Red Cell Distribution Width 26.9 % (11.0-16.0); White Blood Count 8.5 X10*3/uL (4.8-10.8)
[2021-10-18 08:00] VITALS: BP 126/69; PULSE 80; RESP 18; TEMP 37.5; O2SAT 96
[2021-10-18] MEDS: amLODIPine Besylate 5 MG TABLET PO (09:37)
[2021-10-18] MEDS: Ferrous Sulfate 324 MG TABLET.DR PO (09:37)
[2021-10-18] MEDS: hydroCHLOROthiazide 12.5 MG TABLET PO (09:37)
[2021-10-18] MEDS: Gabapentin 300 MG CAPSULE PO (09:37)
[2021-10-18] MEDS: Sucralfate Oral Suspension 1 GM/10 ML ORAL.SUSP PO (09:37)
[2021-10-18] MEDS: Docusate Sodium 100 MG CAPSULE PO (09:37)
[2021-10-18] MEDS: 0.9 % Sodium Chloride Flush 3 ML SYRINGE IVFLUSH (09:38)
[2021-10-18 09:42] VITALS: TEMP 36.4
--- NOTE | 2021-10-18 11:10 | PM.DS ---
DS: Providers Provider Date of Service: 10/18/21 Date of admission: 10/17/21 01:16 Primary care physician: Mark Wheeler MD Consults: 10/17/21 01:13 Consult to Gastroenterology Routine Consulting Provider: Vick Orantes Reason for consultation: Gi bleed Has provider been notified: No DS: Diagnosis Discharge Diagnosis (1) Hypochromic microcytic anemia: Status: Acute DS: Summary Hospital Course Hospital Course: Chief Complaint: anemia 51-year-old female with past medical history of hypertension, hypothyroidism, obesity, PTSD, presents to the hospital after routine labs showed anemia.? Patient reports that she was here on Saturday as her PCP called her telling her to go to the ED as her Hgb was low, patient reports that she could not stay on Saturday because she had to take care of some business.? She returns today to be managed properly.? At the time of previous presentation she received 1 unit of PRBC.? Patient denies any headache, no dizziness, no shortness of breath but reports significant fatigue over the past few months.? Patient denies any melena, hematochezia, but reports that she has been experiencing significant heartburn, and has had chronic problems with her stomach for she is now on pantoprazole twice a day as well as Carafate.? She has also had iron deficiency anemia and is on iron supplement.? reports that she has an appointment with Gastroenterology outpatient for management of her chronic heartburn.? She has not been experiencing vomiting and significant heartburn after every meal and therefore she tries to avoid most solid and spicy foods.? reports history of NSAID use but has not used it in the past few months. ?At this time she denies any abdominal pain, no chest pain, no shortness of breath, no dizziness, no headache, no change in vision, no diarrhea constipation, no urinary symptoms and no lower extremity edema.? On arrival patient hemodynamically stable with no significant abnormal vitals Labs are significant for WBC count of 12.1, hemoglobin of 6.8, MCV of 62.5, stool occult positive. Patient receiving 1 unit of PRBC and will be admitted for further evaluation of GI bleed Hospital course: Patient was admitted and transfused and was seen by Dr. Barney who recommended EGD and Colonoscopy but she declined and instead is opting to have it done as outpatient, Dr. Barney will arrange for this. H/H has improved after transfusion. She is to continue iron, and avoid NSAID including Celebrex, CT of abdomen noted some opacity in lungs and it is recommended to have 3 to 6 months follow up. She is aware of this and I ask that she asked PCP to arrange for this Time Spent with Patient Time attestation: Total time spent providing and/or coordinating discharge services: Discharge coordination time: Greater than 30 minutes Quality: Stroke Does the patient have a stroke diagnosis?: No Physical Exam Vital Signs: Vital Signs: Last Vital Signs Temp 97.5 F 10/18/21 09:42 Pulse 80 10/18/21 08:00 Resp 18 10/18/21 08:00 BP 126/69 10/18/21 08:00 Pulse Ox 96 10/18/21 08:00 BMI result Body Mass Index 42.7 Const: Other: Constitutional: Alert, in no distress, overweight. Mental Status: Oriented to person, place and time. Eyes: Pupils are equal, round and reactive to light. Ear, Nose and Throat: Oropharynx clear, mucous membranes moist. Ears and nose without eformities. Trachea midline. Respiratory: Clear to auscultation. No wheezing, rales or rhonchi. Cardiovascular: S1 S2 regular. No murmurs, rubs or gallops. Gastrointestinal: Abdomen soft, non-tender, non-distended. Normal bowel sounds.? Neurologic: Cranial nerves II-XII grossly intact. No focal neurological deficits. Moves all extremities spontaneously.? Skin: No rashes or lesions.? Musculoskeletal: No cyanosis or clubbing. Psychiatric: Normal mood and affect? DS: Data Data Completed and Pending Labs on day of discharge: Laboratory Results - last 24 hr 10/18/21 06:24 WBC 8.5 RBC 4.66 Hgb 8.0 L Hct 30.6 L MCV 65.7 L MCH 17.2 L MCHC 26.1 L RDW 26.9 H Plt Count 551 H MPV 9.7 Absolute Nucleated RBC 0.000 Nucleated RBC % (auto) 0.0 Discharge Plan Discharge Anticipated Discharge Date/Time: 10/18/21 11:03 Patient Disposition: Home, Self-Care Discharge Diagnosis: Anemia Referrals: Nancie Barney MD [Physician] - 2 Weeks Mark Wheeler MD [Primary Care Provider] - 1 Week Discharge Medications: Continued sucralfate [Carafate] 100 mg/mL Suspension 10 ml PO BID 0RF ferrous sulfate 325 mg (65 mg iron) Tablet 325 mg PO DAILY 0RF gabapentin 300 mg Capsule 300 mg PO TID 0RF omeprazole 20 mg Capsule,Delayed Release(Dr/Ec) 20 mg PO BIDAC 0RF hydroxyzine pamoate 25 mg Capsule 25 mg PO BID PRN (Reason: Anxiety) 0RF prazosin 2 mg capsule 2 mg PO BEDTIME 0RF simvastatin 5 mg tablet 5 mg PO BEDTIME 0RF diclofenac sodium 1 % gel 2 g topical DAILY 0RF Rx Instructions: apply to single elbow, wrist or hand; for hand includes palm/fingers/back of hand docusate sodium 100 mg capsule 100 mg PO BID 0RF hydrochlorothiazide 12.5 mg tablet 12.5 mg PO DAILY 0RF lisinopril 20 mg tablet 20 mg PO BEDTIME 0RF amlodipine 5 mg tablet 5 mg PO DAILY 0RF valacyclovir 500 mg tablet 500 mg PO DAILY PRN (Reason: Outbreak) 0RF levothyroxine 137 mcg capsule 137 mcg PO DAILY Qty: 30 6RF Discontinued celecoxib [Celebrex] 100 mg capsule 100 mg PO BEDTIME 0RF Discharge Orders: Discharge Order (Routine); Ordered 10/18/21 Ordered By: Parveen Delaney Diet: advance to usual diet Activity on Discharge: As tolerated Stand Alone Forms: Patient Portal Discharge page Care Plan Goals: Work up for anemia Health Concerns: Anemia source unclear Plan of Treatment: you have decided not to have EGD or colonoscopy in the hospital, follow up Dr. Barney to have thse procedure done on outpatient basis avoid celebrex--Dr. Barney willforeign for this if not call his office if you don't hear in 7 days Your Cat scan is reporting this: Right basilar airspace opacities including a 1.6 cm rounded somewhat nodular opacity with associated groundglass. Overall, the appearance is suggestive of an inflammatory/infectious process., Though most particularly given the more nodular appearance of the 1.6 cm opacity would recommend follow-up CT in 3-6 months. Have your doctor arrange for follow up CT in 3 to 6 months as follow up Assessment: As above Discharge Date/Time: 10/18/21 13:06
--- NOTE | 2021-10-18 11:16 | MHC.CM.PN ---
Patient has been medically cleared for dc to home today, self care.
[2021-10-18 12:00] VITALS: BP 117/56; PULSE 63; RESP 18; TEMP 37.5; O2SAT 97
[2021-10-20 12:21] LABS: Transglutaminase Ab IgG <1.0 U/mL; Transglutaminase IgA <1.0 U/mL
== END 2021-10-18 13:06 | disposition home or self-care (01) | DRG 253 ==
LOC: HO.ED 23:22 → HO.EDOVER 10-17 01:37 → HO.IMC 10-17 06:12
PROVIDERS: Internal Medicine Gastroenterology; Physician Assistant; Admitting Provider Internal Medicine; Emergency Provider Emergency Medicine; PCP Internal Medicine; Visit Provider Internal Medicine
DX: K92.2 Gastrointestinal hemorrhage, unspecified (principal); E03.9 Hypothyroidism, unspecified; D62 Acute posthemorrhagic anemia; F17.210 Nicotine dependence, cigarettes, uncomplicated; I10 Essential (primary) hypertension; K21.9 Gastro-esophageal reflux disease without esophagitis; E66.9 Obesity, unspecified; Z68.41 Body mass index [BMI] 40.0-44.9, adult; Z20.822 Contact with and (suspected) exposure to COVID-19; Z71.6 Tobacco abuse counseling; F43.10 Post-traumatic stress disorder, unspecified; Z88.0 Allergy status to penicillin; Z79.1 Long term (current) use of non-steroidal anti-inflammatories (NSAID); Z79.890 Hormone replacement therapy; Z79.899 Other long term (current) drug therapy
CPT/HCPCS: 36415; 36430; 74177; 80048; 82272; 85025; 85027; 86364; 86850; 86900; 86901; 86923; 87635; 99285; J2060; J2270; P9016; Q9967

== ENCOUNTER → 2021-11-16 09:58 | Outpatient (BNVA) | payer MEDICAID, SELFPAY | PROVIDERS: PCP Internal Medicine; Referring Provider Internal Medicine; Visit Provider Physician Assistant | DX: R10.9 Unspecified abdominal pain (principal); R11.2 Nausea with vomiting, unspecified; D50.9 Iron deficiency anemia, unspecified | CPT/HCPCS: 99202 ==

== ENCOUNTER 2021-11-23 11:57 | Day surgery (SDC) | payer MEDICAID, SELFPAY ==
--- NOTE | 2021-11-22 12:17 | HO.ANESPROP2 ---
Documented by User: Nellie Villatoro NP 11/22/21 12:26 HPI - Anesthesia Eval Consult details Narrative: 51yo F for Upper Endoscopy and Colonoscopy hx polysub use PMFSH Active Problems Active Problems: All Active Problems (Updated 11/19/21 @ 12:58 by Maritza Obrien PA-C) Iron deficiency anemia (Acute) Anemia (Acute) Nausea & vomiting (Acute) Abdominal pain (Acute) Hypochromic microcytic anemia (Acute) Anemia (Acute) Hypothyroidism (Acute) Obesity due to excess calories (Acute) Past Medical History Medical History Essential hypertension Hypothyroidism Nausea & vomiting Obesity due to excess calories Osteoarthritis Family History Family History Father Lung cancer Mother Congestive heart failure Type 2 diabetes mellitus Surgical History Surgical History H/O shoulder surgery History of carpal tunnel release Hx of tonsillectomy Social History Social History Household Members: None Housing: Other Housing Other:: sober community Do you presently have visiting nurse or other home services: No Alcohol intake: former Patient Tobacco Use Status: Current everyday Tobacco user Substance Use Type: Crack/Cocaine and Former Substance User Have you been hit, kicked, punched, or otherwise hurt by someone within the past year? If so, by whom?: No Are you DNR?: No Advance Directives: No Advance Directives Information Provided: Yes Nutrition Risks: No Nutritional Risk service: No Current occupational status: employed Meds Allergies Allergy/AdvReac Type Severity Reaction Status Date / Time Penicillins Allergy Unknown Anaphylaxis Verified 11/16/21 10:07 Home Medications Medication Instructions Recorded Confirmed Last Taken Type amlodipine 5 mg tablet 5 mg PO DAILY 11/08/20 11/16/21 11/23/21 History diclofenac sodium 1 % topical gel 2 g TOPICAL DAILY g 11/08/20 11/16/21 Unknown History docusate sodium 100 mg capsule 100 mg PO BID 11/08/20 11/16/21 Unknown History hydrochlorothiazide 12.5 mg tablet 12.5 mg PO DAILY 11/08/20 11/16/21 11/23/21 History lisinopril 20 mg tablet 20 mg PO BEDTIME 11/08/20 11/16/21 Unknown History prazosin 2 mg capsule 2 mg PO BEDTIME 11/08/20 11/16/21 Unknown History simvastatin 5 mg tablet 5 mg PO BEDTIME 11/08/20 11/16/21 Unknown History valacyclovir 500 mg tablet 500 mg PO DAILY PRN 11/08/20 11/16/21 Unknown History ferrous sulfate 325 mg (65 mg 325 mg PO DAILY 10/17/21 11/16/21 11/22/21 History iron) tablet gabapentin 300 mg capsule 300 mg PO TID 10/17/21 11/16/21 11/23/21 History hydroxyzine pamoate 25 mg capsule 25 mg PO BID PRN 10/17/21 11/16/21 Unknown History omeprazole 20 mg capsule,delayed 20 mg PO BIDAC 10/17/21 11/16/21 11/23/21 History release sucralfate 100 mg/mL oral 10 ml PO BID 10/17/21 11/16/21 Unknown History suspension (Carafate) tramadol 50 mg tablet 50 mg PO Q12H PRN 11/16/21 11/16/21 11/23/21 History Exam Exam Date and Time: November 22, 2021 1217 Pertinent Lab Results Pertinent Lab Results: Laboratory Tests 10/17/21 10/18/21 07:51 06:24 WBC 8.5 Hgb 8.0 L Hct 30.6 L Plt Count 551 H Sodium 139 Potassium 4.4 Chloride 107 Carbon Dioxide 23 BUN 13 Creatinine 0.81 (s/p 2 units PRBC) Narrative Narrative: EKG 09/2021 Vent. Rate : 089 BPM ? ? Atrial Rate : 089 BPM ?? P-R Int : 124 ms? QRS Dur : 082 ms ? ? QT Int : 386 ms ? ? ? P-R-T Axes : 041 030 046 degrees ?? QTc Int : 469 ms ? Normal sinus rhythm Normal ECG No previous ECGs available Assessment and Plan Assessment Anesthesia Assessment: Chart Reviewed Documented by User: Lucia Penn MD 11/23/21 13:14 [facility] Past Medical History Medical History Essential hypertension Hypothyroidism Nausea & vomiting Obesity due to excess calories Osteoarthritis Functional capacity: independent ambulation Patient : No Family History Family History Father Lung cancer Mother Congestive heart failure Type 2 diabetes mellitus Family history of problems with anesthesia: No Surgical History Surgical History H/O shoulder surgery History of carpal tunnel release Hx of tonsillectomy History of Problems with Anesthesia: No Social History Social History Household Members: None Housing: Other Housing Other:: sober community Do you presently have visiting nurse or other home services: No Alcohol intake: former Patient Tobacco Use Status: Current everyday Tobacco user Substance Use Type: Crack/Cocaine and Former Substance User Have you been hit, kicked, punched, or otherwise hurt by someone within the past year? If so, by whom?: No Are you DNR?: No Advance Directives: No Advance Directives Information Provided: Yes Nutrition Risks: No Nutritional Risk service: No Current occupational status: employed Meds Allergies Allergy/AdvReac Type Severity Reaction Status Date / Time Penicillins Allergy Unknown Anaphylaxis Verified 11/16/21 10:07 Home Medications Medication Instructions Recorded Confirmed Last Taken Type amlodipine 5 mg tablet 5 mg PO DAILY 11/08/20 11/16/21 11/23/21 History diclofenac sodium 1 % topical gel 2 g TOPICAL DAILY g 11/08/20 11/16/21 Unknown History docusate sodium 100 mg capsule 100 mg PO BID 11/08/20 11/16/21 Unknown History hydrochlorothiazide 12.5 mg tablet 12.5 mg PO DAILY 11/08/20 11/16/21 11/23/21 History lisinopril 20 mg tablet 20 mg PO BEDTIME 11/08/20 11/16/21 Unknown History prazosin 2 mg capsule 2 mg PO BEDTIME 11/08/20 11/16/21 Unknown History simvastatin 5 mg tablet 5 mg PO BEDTIME 11/08/20 11/16/21 Unknown History valacyclovir 500 mg tablet 500 mg PO DAILY PRN 11/08/20 11/16/21 Unknown History ferrous sulfate 325 mg (65 mg 325 mg PO DAILY 10/17/21 11/16/21 11/22/21 History iron) tablet gabapentin 300 mg capsule 300 mg PO TID 10/17/21 11/16/21 11/23/21 History hydroxyzine pamoate 25 mg capsule 25 mg PO BID PRN 10/17/21 11/16/21 Unknown History omeprazole 20 mg capsule,delayed 20 mg PO BIDAC 10/17/21 11/16/21 11/23/21 History release sucralfate 100 mg/mL oral 10 ml PO BID 10/17/21 11/16/21 Unknown History suspension (Carafate) tramadol 50 mg tablet 50 mg PO Q12H PRN 11/16/21 11/16/21 11/23/21 History Exam Airway Mallampati Class: III TM Dist: >3cm Neck ROM: Full Heart: RRR Lungs: [place] Assessment and Plan Final Anesthetic Review Family History of Problems with Anesthesia: No History of Problems with Anesthesia: No ASA Class: II Final Preanesthetic Review: No Changes in Pt Med Stat, Meds/Allgs Chart Reviewed, Consent Obtained/Reviewed and Anes Risks/Benef Reviewed Patient Risk: Intermediate Procedure Risk: Low Anesthetic Plan Anesthetic Plan: MAC: Disposition: Standard PACU
[2021-11-23 12:04] VITALS: BP 168/100; PULSE 84; RESP 18; TEMP 36.1; O2SAT 98; BMI 43.5
[2021-11-23] MEDS: Lactated Ringers 1,000 ML 100 ML IVCONT (12:34)
--- NOTE | 2021-11-23 13:09 | MHC.SHP ---
Pre-Procedural Eval Section A Date of Service: 11/23/21 Section B Chief Complaint: abdominal pain,anemia,nausea with vomiting Relevant Family History (Specify if Yes): No Relevant Social History: Tobacco Use Present Medications: see Short Stay Collaborative assessment Medical History: Significant History (Essential hypertension Hypothyroidism Nausea & vomiting Obesity due to excess calories Osteoarthritis) History of Previous Operations: Relevant previous surgery/procedure and date(s) (H/O shoulder surgery History of carpal tunnel release Hx of tonsillectomy) Allergies: Allergies Allergy/AdvReac Type Severity Reaction Status Date / Time Penicillins Allergy Unknown Anaphylaxis Verified 11/16/21 10:07 Review of Systems Sugical H&P ROS: Negative: Constitution, Cardiovascular, Respiratory, Neurological, Psychiatric, Hem-Onc, Allergic/Immunologic, Gastrointestinal, Genitourinary, Musculoskeletal, Integumentary, Endocrine and Eyes/Ears/Nose/Throat Exam Surgical H&P Exam: Normal: HEENT, Normal: Heart, Normal: Lungs, Normal: Extremities, Normal: Abdomen, Normal: Skin and Normal: Neurological Plan Diagnosis/Plan: Unchanged I have reviewed the history and physical and performed a pertinent physical examination on my patient. No changes have occurred unless specified.
--- NOTE | 2021-11-23 13:54 | P.BOP_ITS ---
Brief Operative Note Date of Service: 11/23/21 Pre-op diagnosis: anemia Post-op diagnosis: same Procedure: see op note Surgeon: Nancie Barney MD Anesthesia: MAC Was an Project Surveyor used for this Procedure?: No Estimated blood loss (mL): 0 Condition: stable Disposition: PACU
--- NOTE | 2021-11-23 13:54 | W.PM.OPN ---
Operative Note Operative Note Date of Service: 11/23/21 Narrative: Operative Information Procedure Description: EGD, Colonoscopy Indication: anemia Anesthesia: MAC FLEXIBLE TRANSORAL UPPER GASTROINTESTINAL ENDOSCOPY AND COLONOSCOPY PROCEDURE NOTE UPPER ENDOSCOPY Consent: Indications for the procedure and potential complications of bleeding, perforation, reaction to medications and missed diagnosis were discussed with the patient and informed consent was obtained. Instrument: Olympus GIF H 190 J mid size upper endoscope Monitoring: Vital signs and clinical assessment, continuous EKG monitoring, Pulse oximetry, Carbon Dioxide monitoring and blood pressure monitoring were done throughout the procedure. Procedure: The patient was placed in the left lateral decubitis position and pre-procedure medications were administered and a bite block was placed. The endoscope was inserted into the mouth and advanced under direct vision to the third part of duodenum. A careful inspection was made as the upper endoscope was withdrawn including a retroflexed examination of the proximal stomach; Findings and interventions are described below. Findings: Larynx:normal Esophagus: GE junction at 34 cm, diaphragm hiatus at 41 cm, consistent with 7 cm sliding hiatal hernia. Erosive esophagitis LA grade C noted at the GEJ with linear and stellate shaped erosions. Schatzki ring also noted. Stomach: Patchy erythema, few erosions noted.. Biopsies were obtained. Grade 2 flap valve on retroflexed examination of the cardia. Duodenum: Normal bulb and descending duodenum, bx taken Intervention: Biopsies as noted above COLONOSCOPY Instrument: Olympus variable stiffness adult scope 190L Colonoscopy Monitoring: Vital signs and clinical assessment, continuous EKG monitoring, Pulse oximetry, Carbon Dioxide monitoring and blood pressure monitoring were done throughout the procedure. Colon withdrawal time was 7 minutes. Procedure: The patient was placed in the left lateral decubitis position and pre-procedure medications were administered. After a digital rectal examination of the ano-rectum, the video colonoscope was inserted into the rectum and advanced through the colon to the cecum/TI. The colonoscope was slowly withdrawn in a retrograde panoramic fashion and the colon mucosa was carefully examined including a retroflexed view of the rectum. Findings and interventions are described below. Procedure Difficulty:easy Findings: Terminal Ileum-normal Cecum:normal Ascending Colon: normal Transverse Colon -normal Descending Colon:normal Sigmoid Colon: mild to moderate diverticulosis noted with hypertrophic mucosal folds Rectum: Retroflexion with small internal hemorrhoids, grade I Anorectum - normal Colon preparation: [place] Bowel Preparation Scale Right colon; 3 Transverse colon: 3 Left colon; 3 (0 = Unprepared colon segment with mucosa not seen due to solid stool that cannot be cleared. 1 = Portion of mucosa of the colon segment seen, but other areas of the colon segment not well seen due to staining, residual stool and/or opaque liquid. 2 = Minor amount of residual staining, small fragments of stool and/or opaque liquid, but mucosa of colon segment seen well. 3 = Entire mucosa of colon segment seen well with no residual staining, small fragments of stool or opaque liquid) Impression and Post Procedure Diagnosis: Endoscopy Findings: hiatal hernia schatzki ring erosive esophagitis gastritis Colonoscopy Findings: internal hemorrhoids diverticular disease Plan: Await Pathology results Repeat Colonoscopy in 10 years or earlier if clinically indicated High fiber diet leaflet avoid straining at stool, epsom salts and sitz bath, anusol supps or cream Confirm compliance with PPI, might need to chnage preparation GERD precautions consider referral for surgical repair of hernia. Above findings were reviewed with the patient and relevant handouts were provided if indicated.
[2021-11-23 14:01] VITALS: BP 129/73; PULSE 77; RESP 16; TEMP 36.1; O2SAT 98
--- NOTE | 2021-11-23 14:06 | HO.POSTANES ---
Post Anesthesia Evaluation Post Anesthesia Evaluation Vital Signs: Vital Signs Temp Pulse Resp BP Pulse Ox 11/23/21 14:01 97.0 F 77 16 129/73 98 11/23/21 12:04 97 F 84 18 168/100 H 98 Anesthesia: Monitored Mental Status: Awake Pain Control: Satisfactory Nausea/Vomiting: None Hydration: Adequate Anesthesia-Related Issues: No Anes. Related Issues
[2021-11-23 14:16] VITALS: BP 164/104; PULSE 71; RESP 16; TEMP 36.4; O2SAT 100
== END 2021-11-23 15:41 | disposition home or self-care (01) ==
PROVIDERS: PCP Internal Medicine; Visit Provider Internal Medicine Gastroenterology
PROC: (CPT 45378; principal; 2021-11-23 13:20)
DX: D50.9 Iron deficiency anemia, unspecified (principal); K57.30 Diverticulosis of large intestine without perforation or abscess without bleeding; K64.0 First degree hemorrhoids; R10.9 Unspecified abdominal pain; K29.50 Unspecified chronic gastritis without bleeding; K20.80 Other esophagitis without bleeding; K22.2 Esophageal obstruction; K44.9 Diaphragmatic hernia without obstruction or gangrene; K80.20 Calculus of gallbladder without cholecystitis without obstruction; I10 Essential (primary) hypertension; E03.9 Hypothyroidism, unspecified; E66.9 Obesity, unspecified; M19.90 Unspecified osteoarthritis, unspecified site; Z68.41 Body mass index [BMI] 40.0-44.9, adult; Z79.899 Other long term (current) drug therapy; Z88.0 Allergy status to penicillin
CPT/HCPCS: 45378; 43239; 88305; 88342

== ENCOUNTER → 2021-12-08 10:14 | Outpatient (BNVA) | payer MEDICAID, SELFPAY | PROVIDERS: PCP Internal Medicine; Visit Provider Surgery | DX: K44.0 Diaphragmatic hernia with obstruction, without gangrene (principal); R91.1 Solitary pulmonary nodule | CPT/HCPCS: 99202 ==

== ENCOUNTER → 2021-12-12 13:42 | Outpatient (BNVA) | payer MEDICAID, SELFPAY | PROVIDERS: PCP Internal Medicine; Visit Provider Physician Assistant | DX: Z13.89 Encounter for screening for other disorder (principal) ==

== ENCOUNTER 2021-12-26 10:51 | Outpatient (REF) | payer MEDICAID, SELFPAY ==
--- NOTE | ~2021-12-26 | CT_ITS ---
EXAMINATION: CT CHEST WITHOUT CONTRAST CLINICAL INFORMATION: Diaphragmatic hernia. COMPARISON: None. TECHNIQUE: Multidetector volumetric CT imaging of the chest was done. Axial MIP volume rendering provided. Sagittal and coronal reformatted images were obtained. This CT examination was performed using dose optimization techniques as appropriate, variously including the following: *Automated exposure control *Adjustment of mA and/or kV according to patient size (this includes techniques or standardized protocols for targeted exams where dose is matched to indication/reason for exam; i.e. 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 LUNGS: The lungs are well expanded with minimal right basilar consolidation/atelectasis. No pulmonary nodule, mass or ground-glass density seen. MEDIASTINUM: The thyroid gland is normal and symmetrical. The central trachea and bronchi are widely patent. Heart size and the great vessels are normal caliber. There are mild coronary artery calcifications. No pericardial effusion seen. There is moderate-sized hiatal hernia with part of the stomach within. PLEURA: There is a small right pleural effusion with minimal pleural thickening. AXILLA: No abnormal lymph node seen in the axilla. The chest wall is unremarkable. UPPER ABDOMEN: Visualized liver, spleen, pancreas and bilateral adrenal glands are unremarkable. OSSEOUS STRUCTURES: There is mild ventral spondylosis throughout dorsal spine. No aggressive lytic or sclerotic process seen. Mild degenerative disc changes seen in lower dorsal spine. CT/CT chest wo con IMPRESSION: Moderate-sized hiatal hernia. Right lung base minimal consolidation/atelectasis. Fleischner guidelines were followed.
== END 2021-12-26 10:52 | disposition home or self-care (01) ==
LOC: HO.CT 10:51
PROVIDERS: Visit Provider Surgery
DX: K44.0 Diaphragmatic hernia with obstruction, without gangrene (principal)
CPT/HCPCS: 71250

== ENCOUNTER 2022-02-01 07:49 | Outpatient (REF) | payer MEDICAID, SELFPAY ==
--- NOTE | ~2022-02-01 | FL_ITS ---
EXAMINATION: FL BARIUM SWALLOW CLINICAL INFORMATION: Diaphragmatic herniation with obstruction. COMPARISON: CT scan of the chest December [address] scan of the abdomen and pelvis September 2021. TECHNIQUE: Barium swallow examination is performed using fluoroscopic evaluation in addition to multiple fluoroscopic spot views. The patient is imaged both upright and prone and using both thick and thin sulfate along with effervescent granules. 1.1 min 36.028 mGy 10.733 Gycm2 21 images FINDINGS: Contrast passes normally throughout the esophagus into the stomach. There is a fixed moderate-sized hiatal hernia through which contrast passes without delay. Esophageal motility otherwise normal. Swallowing mechanism appears normal. No aspiration. No masses or ulcerations. There is a small amount of reflux with the patient in the supine position. FL/FL barium swallow IMPRESSION: Moderate-sized hiatal hernia as seen on prior imaging examination. Small amount of reflux noted.
== END 2022-02-01 07:50 | disposition home or self-care (01) ==
LOC: HO.XRAY 07:49
PROVIDERS: PCP Internal Medicine; Visit Provider Surgery
DX: K44.0 Diaphragmatic hernia with obstruction, without gangrene (principal)
CPT/HCPCS: 74220

== ENCOUNTER 2022-05-16 11:59 | Outpatient (REF) | payer MEDICAID, SELFPAY ==
--- NOTE | ~2022-05-16 | MM_ITS ---
EXAMINATION: MM SCREENING DIGITAL BREAST TOMOSYNTHESIS, BILATERAL CLINICAL INFORMATION: Screening. Asymptomatic. The lifetime risk of breast cancer based on the Tyrer-Cuzick Model is 10.1%. COMPARISON: Mammography: None. TECHNIQUE: Digital breast tomosynthesis is performed in both the craniocaudal and mediolateral oblique views along with computer-aided detection (CAD). Synthesized 2D images are generated from the tomosynthesis. FINDINGS: There are scattered areas of fibroglandular density (ACR BI-RADS breast composition Category b). Within the right breast there are multiple circumscribed densities present, a few of which appear to have lobular borders. The majority appear to lie anteriorly and centrally. There is one which lies posteromedially. Within the left breast in the retroareolar region there is a 5 mm density present. Further evaluation of both breasts with spot compression views and probable ultrasound recommended. MM/MM tomosynthesis screening BI IMPRESSION: Bilateral breast findings for further evaluation as described. ASSESSMENT: BI-RADS 0: Incomplete - Need Additional Imaging Evaluation RECOMMENDATION: 1. Additional views of the bilateral breasts. 2. Targeted ultrasound if warranted after review of the additional views. 3. Radiology department staff will contact the patient for additional imaging. This patient's information was entered into a reminder system with a target due date for their next mammogram.
== END 2022-05-16 12:00 | disposition home or self-care (01) ==
LOC: HO.MAMMO 11:59
PROVIDERS: PCP Internal Medicine; Visit Provider Internal Medicine
DX: Z12.31 Encounter for screening mammogram for malignant neoplasm of breast (principal)
CPT/HCPCS: 77063; 77067

== ENCOUNTER 2022-05-24 13:37 | Outpatient (REF) | payer MEDICAID, SELFPAY ==
--- NOTE | ~2022-05-24 | MM_ITS ---
EXAMINATION: MM DIAGNOSTIC DIGITAL BREAST TOMOSYNTHESIS, BILATERAL CLINICAL INFORMATION: Recall from screening for bilateral mammogram nodularity. The lifetime risk of breast cancer based on the Tyrer-Cuzick Model is 10%. COMPARISON: Mammography: 05/16/2022 TECHNIQUE: Digital breast tomosynthesis is performed. 2D images are generated from the tomosynthesis. The following views are obtained: Spot left CC, spot left ML, spot right CC x2, spot right ML. FINDINGS: There are scattered areas of fibroglandular density (ACR BI-RADS breast composition Category b). The additional views confirm fine smooth fibronodular pattern. No architectural abnormality or significant mass. Chronicity is uncertain. Prior outside mammography is currently unavailable. Results are discussed with the patient at time of visit. Management plan is for short bilateral follow-up diagnostic mammography in 6 months. If prior outside mammography is made available and findings are found to be stable, then assessment and recommendation will be updated as usual. MM/MM tomosynthesis diagnostic BI IMPRESSION: Probable benign bilateral smooth fibronodular pattern. ASSESSMENT: BI-RADS 3: Probably Benign RECOMMENDATION: Diagnostic bilateral mammography in 6 months. This patient's information was entered into a reminder system with a target due date for their next mammogram.
== END 2022-05-24 13:38 | disposition home or self-care (01) ==
LOC: HO.MAMMO 13:37
PROVIDERS: PCP Internal Medicine; Visit Provider Internal Medicine
DX: R92.2 Inconclusive mammogram (principal)
CPT/HCPCS: 77062; 77066

== ENCOUNTER 2022-06-10 08:42 | Emergency (ER) | payer MEDICAID, SELFPAY ==
--- NOTE | ~2022-06-10 | CT_ITS ---
EXAMINATION: CT ABDOMEN AND PELVIS WITH CONTRAST CLINICAL INFORMATION: Left lower quadrant tenderness. History of diverticulosis. COMPARISON: October 17, 2021 TECHNIQUE: Multidetector volumetric images were obtained from the superior aspect of the liver through the pubic symphysis following administration 85 mL of Omnipaque 350 intravenous contrast. Sagittal and coronal reformatted images were obtained on the technologist's workstation. Oral contrast: No This CT examination was performed using dose optimization techniques as appropriate, variously including the following: *Automated exposure control *Adjustment of mA and/or kV according to patient size (this includes techniques or standardized protocols for targeted exams where dose is matched to indication/reason for exam; i.e. extremities or head) *Use of iterative reconstruction technique DLP: 932 mGy-cm FINDINGS: LUNG BASES: The visualized lung bases are unremarkable. No pleural or pericardial effusion. There has been resolution of the right lower lobe density compared to previous study of October 17, 2021. LIVER, GALLBLADDER, AND BILIARY TREE: The liver is normal in size, shape, and attenuation. No focal hepatic lesion or biliary ductal dilatation is present. Cholelithiasis is evident without evidence of acute cholecystitis. PANCREAS: Unremarkable. SPLEEN: Unremarkable. ADRENAL GLANDS: Unremarkable. KIDNEYS AND URETERS: The kidneys are normal in size, shape, and attenuation. No hydronephrosis, hydroureter, or calculi seen. No perinephric stranding. BLADDER: Unremarkable. GASTROINTESTINAL TRACT: No dilated loops of large or small bowel are evident. No free air or free fluid is seen. There is diverticulosis of the sigmoid colon however no pericolonic inflammatory change or fluid collection is seen to suggest acute diverticulitis. The appendix is visualized and appears unremarkable. There is a moderate-sized hiatal hernia. ABDOMINAL WALL: There is a fat-containing left rectus supraumbilical hernia present LYMPH NODES: There are some prominent but not pathologically enlarged iliac chain lymph nodes bilaterally measuring up to 8 mm in diameter. VASCULAR: Unremarkable. PELVIC VISCERA: Unremarkable. OSSEOUS STRUCTURES: There is severe degenerative change of the left hip joint. There is multilevel degenerative disc disease within the lower thoracic and lower lumbar spine. CT/CT abdomen pelvis w IV con IMPRESSION: Cholelithiasis without evidence of acute cholecystitis. Moderate size hiatal hernia. Sigmoid diverticulosis without evidence of acute diverticulitis. Improved right lung base disease. Fleischner guidelines were followed.
[2022-06-10 08:45] VITALS: RESP 18; O2SAT 97; BMI 26.6
--- NOTE | 2022-06-10 09:34 | ED_ITS ---
HPI - Abdominal Pain General Chief Complaint: General Medical Stated Complaint: troubles from surgery Time Seen by Provider: 06/10/22 08:51 Source: patient Mode of arrival: ambulatory Limitations: no limitations History of Present Illness HPI narrative: Patient is a 52 year old female who presents emergency department today for evaluation of abdominal pain. She states that for 2-3 weeks she has been having abdominal pain, mostly midline, from suprapubic region up to her throat. She states that her symptoms are getting progressively worse, in more discomfort especially in the evening when she is lying flat. She states that in January of 2022 she had hernia repair, at which time she stopped all of her medications for GERD. She is only taking simethicone as needed. Additionally she reports excessive belching, with a foul taste halitosis, reportedly ?like eggs?. Denies fevers, chills, chest pain, shortness of breath, palpitations, vomiting, diarrhea, constipation. She does report some vaginal discomfort, states she was recently treated for vaginal candidiasis with 2 doses of Diflucan, with improvement in symptoms. Related Data Home Medications Medication Instructions Recorded Confirmed amlodipine 5 mg tablet 5 mg PO DAILY 11/08/20 12/08/21 diclofenac sodium 1 % topical gel 2 g topical DAILY 11/08/20 12/08/21 docusate sodium 100 mg capsule 100 mg PO BID CONST 11/08/20 12/08/21 hydrochlorothiazide 12.5 mg tablet 12.5 mg PO DAILY 11/08/20 12/08/21 lisinopril 20 mg tablet 20 mg PO BEDTIME 11/08/20 12/08/21 prazosin 2 mg capsule 2 mg PO BEDTIME 11/08/20 12/08/21 simvastatin 5 mg tablet 5 mg PO BEDTIME 11/08/20 12/08/21 valacyclovir 500 mg tablet 500 mg PO DAILY PRN Outbreak 11/08/20 12/08/21 ferrous sulfate 325 mg (65 mg 325 mg PO DAILY 10/17/21 12/08/21 iron) tablet gabapentin 300 mg capsule 300 mg PO TID 10/17/21 12/08/21 hydroxyzine pamoate 25 mg capsule 25 mg PO BID PRN Anxiety 10/17/21 12/08/21 omeprazole 20 mg capsule,delayed 20 mg PO BIDAC 10/17/21 12/08/21 release sucralfate 100 mg/mL oral 10 ml PO BID 10/17/21 12/08/21 suspension (Carafate) tramadol 50 mg tablet 50 mg PO Q12H PRN Pain 11/16/21 12/08/21 Previous Rx's Medication Instructions Recorded levothyroxine 137 mcg capsule 137 mcg PO DAILY #30 caps 11/08/20 omeprazole 20 mg capsule,delayed 20 mg PO BID 14 days #28 caps 06/10/22 release sucralfate 100 mg/mL oral 10 ml PO BID #414 mL 06/10/22 suspension Allergies Allergy/AdvReac Type Severity Reaction Status Date / Time Penicillins Allergy Unknown Anaphylaxis Verified 12/12/21 13:42 Review of Systems Review of Systems Constitutional : No Weight loss, No Fever, No Chills ENT/Mouth :? No sore throat, No Rhinorrhea Eyes: No Swelling, No Redness Cardiovascular : No Chest Pain, No SOB, No Edema Respiratory : No Cough, No Sputum, No Wheezing Gastrointestinal : Positive Nausea, no Vomiting, no Diarrhea, positive abdominal pain, No Hematochezia, No Melena Genitourinary : No Dysuria, No Urinary Frequency, No Hematuria, No Urgency, positive vaginal discomfort? Musculoskeletal : No joint pain, No Myalgias, No Joint Swelling Skin : No Skin Lesions, No rash Neuro : No Weakness, No Numbness, No Dizziness, No Headache Psych : No Anxiety/Panic, No Depression Yes all other systems are reviewed and are negative [facility] Past Medical History Attestation statement: The following information was validated with the patient. Source: old records reviewed Medical History Essential hypertension Hyperlipidemia Hypochromic microcytic anemia Hypothyroidism Nausea & vomiting Obesity due to excess calories Osteoarthritis Personal history of nicotine dependence Surgical History History of carpal tunnel release History of colonoscopy History of esophagogastroduodenoscopy (EGD) History of shoulder surgery History of tonsillectomy Family History Family History Father Lung cancer Mother Congestive heart failure Type 2 diabetes mellitus Social History Social History Household Members: None Housing: Other Housing Other:: sober community Do you presently have visiting nurse or other home services: No Alcohol intake: former Patient Tobacco Use Status: Current everyday Tobacco user Smoked in Last 30 Days: Yes Substance Use Type: Crack/Cocaine and Former Substance User Advance Directives: No Advance Directives Information Provided: No service: No Current occupational status: employed Physical Exam ED Vital Signs: Vital Signs - 24 hr 06/10/22 08:45 06/10/22 09:58 06/10/22 10:07 Temperature 98.1 F Pulse Rate 61 Respiratory Rate 18 14 18 Blood Pressure 154/95 H Pulse Oximetry 97 98 Oxygen Delivery Method Room Air Room Air BMI result Body Mass Index 26.6 Appearance: Alert.?Oriented to person, place and time. No acute distress.?Normal affect. Eyes: Pupils equal, round and reactive to light.? ENT: Pharynx normal.?? Neck: Normal inspection.? Neck supple.?? CVS: Heart sounds normal. Normal heart rate and rhythm.? Pulses normal.?? Respiratory: No respiratory distress.? Lung sounds clear to auscultation bilaterally?? Abdomen: Soft mild epigastric tenderness, left lower quadrant tenderness. Normoactive bowel sounds. No pulsatile mass.?? Skin: Skin warm and dry.? Normal skin color.? Extremities: No lower extremity edema.? N Neuro: Moves all extremities spontaneously. Sensation intact bilaterally. No focal neuro deficits. Ambulates with normal steady gait. Course Course Course Narrative: Patient is a 52-year-old female with a past medical history of chronic back pain, hypertension, hyperlipidemia, anemia, hypothyroidism, osteoarthritis. She presents emergency department for evaluation of abdominal pain ongoing for the past 2-3 weeks, for abdominal pain with heartburn, as well as lower abdominal pain. Upon examination has tenderness to the epigastrium as well as the left lower quadrant. She has been seen by GI in the past, last evaluated in November 2021 after having EGD and colonoscopy in October 2021, which revealed erosive esophagitis, hiatal hernia, gastritis, and diverticulosis. Underwent hernia repair in January of 2022 through [facility]. She is overall well appearing, vital signs are stable. Will obtain CBC to evaluate for leukocytosis/ anemia, CMP and lipase to evaluate for abnormal electrolytes /abnormal renal function/ abnormal hepatic/biliary function, CT of the abdomen pelvis to evaluate for bowel obstruction, diverticulitis, and will obtain Urinalysis, offered repeat bacterial vaginosis panel testing, patient declines at this time. At this time her symptoms seem most consistent with gastritis, will trial GI cocktail; Maalox, lidocaine viscous, and famotidine. Disposition pending results. Reevaluation(s) Reevaluation #1: CBC reveals a microcytic anemia consistent with baseline, does not meet transfusion criteria, no leukocytosis. CMP is unremarkable, lipase within normal limits. CT reveals cholelithiasis without evidence of acute cholecystitis, lipase within normal limits, no right upper quadrant tenderness, negative Sesay sign, mild epigastric tenderness upon palpation. Lower suspicion for acute cholecystitis. CT also reveals a moderate size hiatal hernia, diverticulosis without acute diverticulitis. I discussed these findings with patient, consistent with recurrent hernia despite recent surgical procedure. Symptoms likely secondary to associated acid reflux. Patient to be sent home with a prescription for omeprazole and carafate, outpatient follow-up with Gastroenterology and surgeon. Reviewed worsening signs and symptoms that she should return back to the emergency department for. Questions were answered. Patient was discharged home in stable condition. Time: 13:18 Medications Administered Discontinued Medications Generic Name Dose Route Start Last Admin Trade Name Freq PRN Reason Stop Dose Admin Al Hydroxide/Mg Hydroxide 30 ml 06/10/22 09:31 06/10/22 09:52 Magnesium Hydrox/Alum Hydrox 30 Ml Oral.Susp PO 06/10/22 09:32 30 ml ONCE ONE Administration Famotidine 20 mg 06/10/22 09:31 06/10/22 09:52 Famotidine 20 Mg Tablet PO 06/10/22 09:32 20 mg ONCE ONE Administration Sodium Chloride 1,000 mls @ 999 mls/hr 06/10/22 09:45 06/10/22 14:11 Ns IV 06/10/22 10:45 Infused .Q1H1M ITZEL Infusion Iohexol 85 ml 06/10/22 10:58 06/10/22 10:58 Iohexol 350 Mg/Ml 75 Ml Infus..Btl IV 06/10/22 10:59 85 ml ONCE ONE Administration Lidocaine HCl 15 ml 06/10/22 09:31 06/10/22 09:52 Lidocaine Hcl Viscous 2 % 15 Ml Solution MUCOUS MEM 06/10/22 09:32 15 ml ONCE ONE Administration MDM - Abdominal Pain Medical Records Attestation: I reviewed the patient's medical records. Lab Data Attestation: I reviewed the patient's lab results. Result diagrams: 06/10/22 09:47 06/10/22 09:47 Labs: Lab Results 06/10/22 06/10/22 06/10/22 Range/Units 09:47 09:47 11:58 WBC 7.9 (4.8-10.8) X10*3/uL RBC 4.99 (4.20-5.50) X10*6/uL Hgb 11.5 L D (12.0-16.0) g/dl Hct 37.1 D (37.0-47.0) % MCV 74.3 L (80.0-98.0) fL MCH 23.0 L (27.0-33.0) pg MCHC 31.0 (31.0-35.0) g/dl RDW 16.6 H (11.0-16.0) % Plt Count 340 D (160-400) X10*3/uL MPV 10.7 (9.4-12.3) fL Immature Gran % (Auto) 0.4 (0.0-0.4) % Neut % (Auto) 63.4 (45-73) % Lymph % (Auto) 24.4 (20-40) % [place] % (Auto) 8.4 (2-11) % Eos % (Auto) 2.8 (0-4) % Baso % (Auto) 0.6 (0-2) % Lymph # (Auto) 1.9 (1.2-4.9) X10*3/uL [place] # (Auto) 0.7 (0.1-1.2) X10*3/uL Eos # (Auto) 0.2 (0.0-0.4) X10*3/uL Baso # (Auto) 0.1 (0.0-0.2) X10*3/uL Abs Immat Gran (auto) 0.03 (0.00-0.03) X10*3/uL Absolute Neuts (auto) 5.0 (2.0-8.3) x10*3/uL Absolute Nucleated RBC 0.000 (0.0-0.012) X10*3/uL Nucleated RBC % (auto) 0.0 (0.0-0.2) /100WBC Sodium 142 (135-145) mmol/L Potassium 3.7 (3.3-5.1) mmol/L Chloride 104 (96-108) mmol/L Carbon Dioxide 25 (22-29) mmol/L Anion Gap 17 (12-20) BUN 13 (9-16) mg/dL Creatinine 1.04 (0.5-1.4) mg/dL Estim Creat Clear Calc 68.4 Estimated GFR 55 Random Glucose 115 (60-115) mg/dL Calcium 9.5 (8.4-10.2) mg/dL Total Bilirubin 0.4 (0.0-1.0) mg/dL AST 23 D (5-31) U/L ALT 19 (0-31) U/L Alkaline Phosphatase 82 (39-117) U/L Total Protein 6.8 (6.5-8.0) g/dL Albumin 4.0 (3.5-5.0) g/dL Lipase 20 (8-78) U/L Urine Color Yellow Urine Appearance Clear Urine pH 7.0 (5.0-9.0) Ur Specific Lim[place] >= 1.030 H (1.005-1.025) Urine Protein Trace (Neg-Trace) mg/dL Urine Glucose (UA) Negative (Negative) mg/dL Urine Ketones Negative (Negative) mg/dL Urine Blood Negative (Negative) Urine Nitrite Negative (Negative) Ur Leukocyte Esterase Negative (Negative) Urine Test (NEGATIVE) 06/10/22 Range/Units 11:58 WBC (4.8-10.8) X10*3/uL RBC (4.20-5.50) X10*6/uL Hgb (12.0-16.0) g/dl Hct (37.0-47.0) % MCV (80.0-98.0) fL MCH (27.0-33.0) pg MCHC (31.0-35.0) g/dl RDW (11.0-16.0) % Plt Count (160-400) X10*3/uL MPV (9.4-12.3) fL Immature Gran % (Auto) (0.0-0.4) % Neut % (Auto) (45-73) % Lymph % (Auto) (20-40) % [place] % (Auto) (2-11) % Eos % (Auto) (0-4) % Baso % (Auto) (0-2) % Lymph # (Auto) (1.2-4.9) X10*3/uL [place] # (Auto) (0.1-1.2) X10*3/uL Eos # (Auto) (0.0-0.4) X10*3/uL Baso # (Auto) (0.0-0.2) X10*3/uL Abs Immat Gran (auto) (0.00-0.03) X10*3/uL Absolute Neuts (auto) (2.0-8.3) x10*3/uL Absolute Nucleated RBC (0.0-0.012) X10*3/uL Nucleated RBC % (auto) (0.0-0.2) /100WBC Sodium (135-145) mmol/L Potassium (3.3-5.1) mmol/L Chloride (96-108) mmol/L Carbon Dioxide (22-29) mmol/L Anion Gap (12-20) BUN (9-16) mg/dL Creatinine (0.5-1.4) mg/dL Estim Creat Clear Calc Estimated GFR Random Glucose (60-115) mg/dL Calcium (8.4-10.2) mg/dL Total Bilirubin (0.0-1.0) mg/dL AST (5-31) U/L ALT (0-31) U/L Alkaline Phosphatase (39-117) U/L Total Protein (6.5-8.0) g/dL Albumin (3.5-5.0) g/dL Lipase (8-78) U/L Urine Color Urine Appearance Urine pH (5.0-9.0) Ur Specific Lim[place] (1.005-1.025) Urine Protein (Neg-Trace) mg/dL Urine Glucose (UA) (Negative) mg/dL Urine Ketones (Negative) mg/dL Urine Blood (Negative) Urine Nitrite (Negative) Ur Leukocyte Esterase (Negative) Urine Test NEGATIVE (NEGATIVE) Imaging Data CT scan - abdomen: Radiologist's impression: CT/CT abdomen pelvis w IV con IMPRESSION: Cholelithiasis without evidence of acute cholecystitis. ? Moderate size hiatal hernia. ? Sigmoid diverticulosis without evidence of acute diverticulitis. ? Improved right lung base disease.? ? Fleischner guidelines were followed. Discharge Plan Discharge Clinical Impression: Hiatal hernia, GERD (gastroesophageal reflux disease) Patient Disposition: Home, Self-Care Instructions: Hiatal Hernia (ED), Diet for Stomach Ulcers and Gastritis (ED), Gastroesophageal Reflux Disease (ED) Additional Instructions: As we discussed, please contact your surgeon as well as her granulizing machine operator to arrange for follow-up, the CT obtained today reveals return of your hiatal hernia. New prescriptions for omeprazole and Carafate were sent to your pharmacy. Avoid triggers such as fatty foods, spicy foods, tomatoes, onions, coffee, tea, chocolate, and alcohol. Remaining upright after meals for 1-2 hours. Avoid eating at least 3 hours before bedtime. Try sleeping on an incline if possible. Return to emergency department with any new or worsening symptoms or concerns. Prescriptions: New omeprazole 20 mg capsule,delayed release(DR/EC) 20 mg PO BID 14 Days Qty: 28 0RF sucralfate 100 mg/mL suspension 10 ml PO BID Qty: 414 0RF No Action sucralfate [Carafate] 100 mg/mL Suspension 10 ml PO BID ferrous sulfate 325 mg (65 mg iron) Tablet 325 mg PO DAILY gabapentin 300 mg Capsule 300 mg PO TID omeprazole 20 mg Capsule,Delayed Release(Dr/Ec) 20 mg PO BIDAC hydroxyzine pamoate 25 mg Capsule 25 mg PO BID PRN (Reason: Anxiety) prazosin 2 mg capsule 2 mg PO BEDTIME simvastatin 5 mg tablet 5 mg PO BEDTIME diclofenac sodium 1 % gel 2 g topical DAILY Rx Instructions: apply to single elbow, wrist or hand; for hand includes palm/fingers/back of hand docusate sodium 100 mg capsule 100 mg PO BID hydrochlorothiazide 12.5 mg tablet 12.5 mg PO DAILY lisinopril 20 mg tablet 20 mg PO BEDTIME amlodipine 5 mg tablet 5 mg PO DAILY valacyclovir 500 mg tablet 500 mg PO DAILY PRN (Reason: Outbreak) levothyroxine 137 mcg capsule 137 mcg PO DAILY Qty: 30 6RF tramadol 50 mg tablet 50 mg PO Q12H PRN (Reason: Pain) Interventions: ED Discharge Assessment Last Done: 06/10/22 14:12 Discharge Date/Time: 06/10/22 14:12
[2022-06-10 09:50] LABS: MANUAL DIFF FLAG NO
[2022-06-10 09:51] LABS: Basophils Absolute Auto 0.1 X10*3/uL (0.0-0.2); Basophils Percent Auto 0.6 % (0-2); Eosinophils Absolute Auto 0.2 X10*3/uL (0.0-0.4); Eosinophils Percent Auto 2.8 % (0-4); Hematocrit 37.1 % (37.0-47.0); Hemoglobin 11.5 g/dl (12.0-16.0); Imm Gran Abs Auto 0.03 X10*3/uL (0.00-0.03); Imm Gran Pct Auto 0.4 % (0.0-0.4); Lymphocytes Absolute Auto 1.9 X10*3/uL (1.2-4.9); Lymphocytes Percent Auto 24.4 % (20-40); Mean Corpuscular Volume 74.3 fL (80.0-98.0); Mean Platelet Volume 10.7 fL (9.4-12.3); Monocytes Absolute Auto 0.7 X10*3/uL (0.1-1.2); Monocytes Percent Auto 8.4 % (2-11); Neutrophils Percent Auto 63.4 % (45-73); Platelet Count 340 X10*3/uL (160-400); Red Blood Count 4.99 X10*6/uL (4.20-5.50); Red Cell Distribution Width 16.6 % (11.0-16.0); White Blood Count 7.9 X10*3/uL (4.8-10.8)
[2022-06-10] MEDS: 0.9 % Sodium Chloride 1,000 ML 999 ML IV (09:52)
[2022-06-10] MEDS: Famotidine 20 MG TABLET PO (09:52)
[2022-06-10] MEDS: Magnesium Hydrox/Alum Hydrox 30 ML ORAL.SUSP PO (09:52)
[2022-06-10] MEDS: Lidocaine HCl Viscous 2 % 15 ML SOLUTION MUCOUS MEM (09:52)
[2022-06-10 09:58] VITALS: RESP 14
--- NOTE | 2022-06-10 09:58 | PC.NURSE ---
Pt alert and oriented, respirations even and unlabored. IV establishes, labs drawn and sent. Medicated per the SEP. Awaiting ct scan
[2022-06-10 10:07] VITALS: BP 154/95; PULSE 61; RESP 18; TEMP 36.7; O2SAT 98
[2022-06-10 10:14] LABS: Alanine Aminotransferase 19 U/L (0-31); Alkaline Phosphatase 82 U/L (39-117); Anion Gap 17 (12-20); Aspartate Amino Transferase 23 U/L (5-31); Bilirubin Total 0.4 mg/dL (0.0-1.0); Blood Urea Nitrogen 13 mg/dL (9-16); Calcium 9.5 mg/dL (8.4-10.2); Carbon Dioxide 25 mmol/L (22-29); Chloride 104 mmol/L (96-108); Creatinine Clr Calc Pharmacy 68.4; Estimated Glomerular Filt Rate 55; Glucose Random 115 mg/dL (60-115); Lipase 20 U/L (8-78); Potassium 3.7 mmol/L (3.3-5.1); Sodium 142 mmol/L (135-145); Total Protein 6.8 g/dL (6.5-8.0)
[2022-06-10] MEDS: iohexoL 350 MG/ML 75 ML INFUS..BTL 85 ML IV (10:58)
--- NOTE | 2022-06-10 11:36 | PC.NURSE ---
Pt sleeping at this time, awaiting CT results
[2022-06-10 12:09] LABS: Appearance Urine Clear; Color Urine Yellow; Glucose Urine UA Negative (Negative); Leukocyte Esterase Urine Negative (Negative); Nitrite Urine Negative (Negative); Specific Gravity - Urine >= 1.030 (1.005-1.025); Urine Blood Negative (Negative); Urine Ketones Negative (Negative); Urine Protein Trace mg/dL (Neg-Trace)
[2022-06-10 12:11] LABS: UPreg QC Valid YES; Urine Pregnancy NEGATIVE (NEGATIVE)
== END 2022-06-10 14:12 | disposition home or self-care (01) ==
PROVIDERS: Nurse Practitioner Family; Emergency Provider Emergency Medicine
DX: K44.9 Diaphragmatic hernia without obstruction or gangrene (principal); R10.32 Left lower quadrant pain; K21.9 Gastro-esophageal reflux disease without esophagitis; F14.10 Cocaine abuse, uncomplicated; F17.210 Nicotine dependence, cigarettes, uncomplicated; Z79.899 Other long term (current) drug therapy; Z71.6 Tobacco abuse counseling
CPT/HCPCS: 36415; 74177; 80053; 81003; 81025; 83690; 85025; 99284; Q9967

== ENCOUNTER → 2022-06-15 09:56 | Outpatient (BNVA) | payer MEDICAID, SELFPAY | PROVIDERS: PCP Internal Medicine; Visit Provider Surgery | DX: K44.9 Diaphragmatic hernia without obstruction or gangrene (principal) | CPT/HCPCS: 99212 ==

== ENCOUNTER 2022-08-15 11:23 | Outpatient (REF) | payer MEDICAID, SELFPAY | END 2022-08-15 11:24 | disposition home or self-care (01) | LOC: HO.LNP 11:23 | PROVIDERS: PCP Internal Medicine; Visit Provider Obstetrics & Gynecology | DX: R87.610 Atypical squamous cells of undetermined significance on cytologic smear of cervix (ASC-US) (principal); R87.810 Cervical high risk human papillomavirus (HPV) DNA test positive | CPT/HCPCS: 57454; 88305; 88342; 88360; 99212 ==

== ENCOUNTER → 2022-09-11 15:09 | Outpatient (BNVA) | payer MEDICAID, SELFPAY | PROVIDERS: PCP Internal Medicine; Visit Provider Obstetrics & Gynecology | DX: N87.1 Moderate cervical dysplasia (principal) | CPT/HCPCS: 99212 ==

== ENCOUNTER 2022-10-09 11:29 | Outpatient (REF) | payer MEDICAID, SELFPAY ==
[2022-10-09 18:33] LABS: CT PCR NOT DETECTED (Not Detect.); NG PCR NOT DETECTED (Not Detect.)
[2022-10-10 09:30] LABS: BV Int Neg Control Negative (Negative); BV Int Pos Control Positive (Positive)
== END 2022-10-09 11:30 | disposition home or self-care (01) ==
LOC: HO.LNP 11:29
PROVIDERS: PCP Internal Medicine; Visit Provider Obstetrics & Gynecology
DX: Z11.3 Encounter for screening for infections with a predominantly sexual mode of transmission (principal)
CPT/HCPCS: 0353U; 87480; 87510; 87660; 99212

== ENCOUNTER 2023-03-10 07:36 | Emergency (ER) | payer MEDICAID, SELFPAY ==
[2023-03-10 07:38] VITALS: BP 176/100; PULSE 71; RESP 19; TEMP 530.5; TEMP 987; O2SAT 98; BMI 37.4
--- NOTE | 2023-03-10 08:52 | ED_ITS ---
HPI - General Adult General Chief complaint: Wound/Laceration Stated complaint: Piercing disappeared into lip Time Seen by Provider: 03/10/23 08:51 Source: patient Mode of arrival: ambulatory Limitations: no limitations History of Present Illness HPI narrative: Patient is a 52-year-old female presenting to the emergency department with swelling and pain to left upper lip. Reports that she recently had her lip pi ercing jewelry changed 3 weeks ago and yesterday developed significant swelling. States the swelling engulfed the back side of the piercing. States the piercing was originally done 7 years ago. Denies fevers. Denies drainage. States she attempted to remove the jewelry herself but was unable. MD complaint: foreign body upper lip Onset (ago): day(s) Location: face and mouth Severity: moderate Relieving factors: none Exacerbating factors: none Associated symptoms: denies other symptoms Treatments prior to arrival: none Related Data Home Medications Medication Instructions Recorded Confirmed amlodipine 5 mg tablet 5 mg PO DAILY 11/08/20 06/15/22 diclofenac sodium 1 % topical gel 2 g topical DAILY 11/08/20 06/15/22 docusate sodium 100 mg capsule 100 mg PO BID CONST 11/08/20 06/15/22 hydrochlorothiazide 12.5 mg tablet 12.5 mg PO DAILY 11/08/20 06/15/22 lisinopril 20 mg tablet 20 mg PO BEDTIME 11/08/20 06/15/22 prazosin 2 mg capsule 2 mg PO BEDTIME 11/08/20 06/15/22 simvastatin 5 mg tablet 5 mg PO BEDTIME 11/08/20 06/15/22 valacyclovir 500 mg tablet 500 mg PO DAILY PRN Outbreak 11/08/20 06/15/22 ferrous sulfate 325 mg (65 mg 325 mg PO DAILY 10/17/21 06/15/22 iron) tablet gabapentin 300 mg capsule 300 mg PO TID 10/17/21 06/15/22 hydroxyzine pamoate 25 mg capsule 25 mg PO BID PRN Anxiety 10/17/21 06/15/22 omeprazole 20 mg capsule,delayed 20 mg PO BIDAC 10/17/21 06/15/22 release sucralfate 100 mg/mL oral 10 ml PO BID 10/17/21 06/15/22 suspension (Carafate) tramadol 50 mg tablet 50 mg PO Q12H PRN Pain 11/16/21 06/15/22 Previous Rx's Medication Instructions Recorded levothyroxine 137 mcg capsule 137 mcg PO DAILY #30 caps 11/08/20 omeprazole 20 mg capsule,delayed 20 mg PO BID 14 days #28 caps 06/10/22 release sucralfate 100 mg/mL oral 10 ml PO BID #414 mL 06/10/22 suspension clindamycin HCl 150 mg capsule 150 mg PO TID #21 caps 03/10/23 clindamycin HCl 300 mg capsule 300 mg PO TID 7 days #21 caps 03/10/23 fluconazole 150 mg tablet 150 mg PO Q3D 2 doses #2 tabs 03/10/23 (Diflucan) Allergies Allergy/AdvReac Type Severity Reaction Status Date / Time Penicillins Allergy Unknown Anaphylaxis Verified 03/10/23 07:37 Review of Systems Review of Systems: As per HPI. Yes all other systems are reviewed and are negative Constitutional: Constitutional: Reports as per HPI [facility] Past Medical History Medical History Essential hypertension Hyperlipidemia Hypochromic microcytic anemia Hypothyroidism Nausea & vomiting Obesity due to excess calories Osteoarthritis Personal history of nicotine dependence Surgical History History of carpal tunnel release History of colonoscopy History of esophagogastroduodenoscopy (EGD) History of shoulder surgery History of tonsillectomy Family History Family History Father Lung cancer Mother Congestive heart failure Type 2 diabetes mellitus Social History Social History Household Members: None Housing: Other Housing Other:: sober community Do you presently have visiting nurse or other home services: No Alcohol intake: former Patient Tobacco Use Status: Current everyday Tobacco user Substance Use Type: Crack/Cocaine and Former Substance User Advance Directives: No Advance Directives Information Provided: Yes service: No Current occupational status: employed Physical Exam ED Vital Signs: Vital Signs - 24 hr 03/10/23 07:38 Temperature 987 F H Pulse Rate 71 Respiratory Rate 19 Blood Pressure 176/100 H Pulse Oximetry 98 Oxygen Delivery Method Room Air BMI result Body Mass Index 37.4 Vital signs have been reviewed and appear to be correct. Blood pressure elevated. Heart rate normal. Respiratory rate normal. Temperature normal. Oxygen saturation normal. Const General: cooperative, healthy appearing and no acute distress Orientation/consciousness: oriented to person, oriented to place, oriented to time and patient oriented x3 Limitations: no limitations HENMT Head: Yes normocephalic and Yes atraumatic Ears: external ears normal General nose exam: Normal external nose present Face and sinus: Yes face symmetric Mouth: oropharynx normal, moist mucous membranes and lip abnormal left upper swelling and other (unable to visualize back of piercing on oral mucosa of upper lip, no dng) Throat: Yes uvula midline Eyes Pupils: Equal, round and reactive pupils present Neck Neck: Yes normal visual inspection and Yes supple Resp Effort & Inspection: normal respiratory effort and able to speak in complete sentences Auscultation: clear to auscultation bilaterally Cardio Rate: regular rate Rhythm: regular rhythm Heart sounds: S1 normal heart sound present and S2 normal heart sound present GI Palpation (GI): Soft to palpation and nontender Auscultation: normoactive bowel sounds General: Yes no CVA tenderness Back/Spine/Pelvis Back: no CVA tenderness Skin General skin exam: elasticity normal and turgor normal Neuro General: oriented to person, oriented to place, oriented to time, patient oriented x3, moves all extremities, no focal motor deficits and CN's II-XI intact bilaterally Cranial nerves: Yes Equal, round and reactive pupils present Cognition (Neuro): normal cognition Extrem General: Yes full ROM, Yes no pedal edema and Yes no calf tenderness Psych Mental Status: mental status grossly normal Affect: normal affect Thought process: Normal thought process present Medical Decision Making Medical Decision Making MDM Narrative: Patient is a 52-year-old female presenting to the emergency department with swelling and pain to left upper lip. On exam patient is awake, A+Ox3, VS WNL, afebrile, normal neurological exam without focal deficits, moderate swelling to left upper lip with piercing visible on external lip, unable to visualize back of piercing on oral mucosa due to edema, no drainage or discharge, patient maintaining oral secretions without difficulty. Given reported symptoms and physical exam findings, initial differential includes foreign body left upper lip, localized infection. Do not suspect systemic infection, TSS, abscess. Will prescribe course of Clindamycin to allow swelling to subside, advised patient she should also swish mouth with warm salt water several times daily. Prescribed Diflucan at patient request. Strict return precautions discussed at bedside. Patient referred to general surgery for evaluation of piercing removal once swelling subsides. Patient verbalized understanding of and agreement with plan. Differential Diagnosis Differential Diagnoses: The differential diagnosis associated with the presentation includes As per MDM. External Record Review External record reviewed: Inpatient record, Office record and Outpatient record Prescription Management I considered prescription management with: Antibiotic (Clindamycin) Discharge Plan Discharge Clinical Impression: Foreign body in lip Patient Disposition: Home, Self-Care Additional Instructions: You were evaluated in the emergency department today for upper lip swelling related to your piercing. You are being prescribed a course of antibiotics to help decrease the swelling. Please complete the full course of antibiotics as prescribed. If you develop worsening lip swelling, pain, drainage from the piercing, fever 100.4? F or greater, or any other concerning symptoms please return to the emergency department. You are being referred to a general surgeon if you are unable to remove the piercing your self once the swelling has subsided. Please contact them to set up an appointment. Prescriptions: New clindamycin HCl 300 mg capsule 300 mg PO TID 7 Days Qty: 21 0RF fluconazole [Diflucan] 150 mg tablet 150 mg PO Q3D Qty: 2 0RF Rx Instructions: may repeat second dose 72 hrs after first dose if symptoms persist clindamycin HCl 150 mg capsule 150 mg PO TID Qty: 21 0RF Rx Instructions: Please take with 300mg capsule at each dose for a total dose of 450mg. No Action sucralfate [Carafate] 100 mg/mL Suspension 10 ml PO BID ferrous sulfate 325 mg (65 mg iron) Tablet 325 mg PO DAILY gabapentin 300 mg Capsule 300 mg PO TID omeprazole 20 mg Capsule,Delayed Release(Dr/Ec) 20 mg PO BIDAC hydroxyzine pamoate 25 mg Capsule 25 mg PO BID PRN (Reason: Anxiety) omeprazole 20 mg capsule,delayed release(DR/EC) 20 mg PO BID 14 Days Qty: 28 0RF sucralfate 100 mg/mL suspension 10 ml PO BID Qty: 414 0RF prazosin 2 mg capsule 2 mg PO BEDTIME simvastatin 5 mg tablet 5 mg PO BEDTIME diclofenac sodium 1 % gel 2 g topical DAILY Rx Instructions: apply to single elbow, wrist or hand; for hand includes palm/fingers/back of hand docusate sodium 100 mg capsule 100 mg PO BID hydrochlorothiazide 12.5 mg tablet 12.5 mg PO DAILY lisinopril 20 mg tablet 20 mg PO BEDTIME amlodipine 5 mg tablet 5 mg PO DAILY valacyclovir 500 mg tablet 500 mg PO DAILY PRN (Reason: Outbreak) levothyroxine 137 mcg capsule 137 mcg PO DAILY Qty: 30 6RF tramadol 50 mg tablet 50 mg PO Q12H PRN (Reason: Pain) Referrals: [facility] [place] [facility] [Provider Group]
[2023-03-10 09:14] VITALS: BP 117/89; PULSE 60; RESP 16; TEMP 36.8; O2SAT 98
== END 2023-03-10 09:30 | disposition home or self-care (01) ==
PROVIDERS: Emergency Provider Emergency Medicine Emergency Medical Services; PCP Nurse Practitioner Family
DX: S01.542A Puncture wound with foreign body of oral cavity, initial encounter (principal); T18.0XXA Foreign body in mouth, initial encounter; X58.XXXA Exposure to other specified factors, initial encounter; Y93.9 Activity, unspecified; Y92.9 Unspecified place or not applicable; Y99.9 Unspecified external cause status; F17.210 Nicotine dependence, cigarettes, uncomplicated; Z71.6 Tobacco abuse counseling; Z79.899 Other long term (current) drug therapy
CPT/HCPCS: 99284

== ENCOUNTER 2023-03-11 17:08 | Outpatient (REF) | payer MEDICAID, SELFPAY ==
[2023-03-11 17:52] LABS: Amphetamine Screen Urine Not Detected (Not Detect); Barbiturates, Urine Not Detected (Not Detect); Benzodiazepines Screen Urine Not Detected (Not Detect); Cannabinoid Screen Urine POSITIVE (Not Detect); Cocaine Screen Urine Not Detected (Not Detect); Fentanyl, urine Not Detected (Not Detect); Opiate Screen Urine Not Detected (Not Detect); Phencyclidine Screen Urine Not Detected (Not Detect)
== END 2023-03-11 17:09 | disposition home or self-care (01) ==
LOC: HO.HHCLNP 17:08
PROVIDERS: Visit Provider Nurse Practitioner Family
DX: M54.50 Low back pain, unspecified (principal)
CPT/HCPCS: 80307

== ENCOUNTER 2023-03-18 14:41 | Outpatient (AMB) | payer MEDICAID, SELFPAY ==
--- NOTE | 2023-03-18 15:03 | A.OFFVIS_ITS ---
Intake Vital Signs 03/18/23 15:13 Height 5 ft 6 in Weight 228 lb BMI 36.8 BP 120/80 Blood Pressure Location Lt brachial Position Sitting Intake Visit Reasons: Piercing stuck in lip Intake Note: Patient is seen in office for ER follow up visit, following piercing stuck in lip. Patient c/o: admits to piercing on lip for the last 3wks, was given antibiotics all done with them, currently area is not red, the skin has grown over the piercing Architecture Manager Required: No Accompanied by: Self / Same As Patient Allergies Penicillins Allergy (Unknown, Verified 03/18/23 15:13) Anaphylaxis Medication List - Last Reconciled 03/18/23 by Eddie Fan MD amlodipine 5 mg PO DAILY clindamycin HCl 150 mg PO TID clindamycin HCl 300 mg PO TID 7 days diclofenac sodium 1% 2 grams topical DAILY docusate sodium 100 mg PO BID ferrous sulfate 325 mg PO DAILY fluconazole (Diflucan) 150 mg PO Q3D 2 doses gabapentin 300 mg PO TID hydrochlorothiazide 12.5 mg PO DAILY hydroxyzine pamoate 25 mg PO BID PRN levothyroxine 137 mcg PO DAILY lisinopril 20 mg PO BEDTIME omeprazole 20 mg PO BIDAC omeprazole 20 mg PO BID 14 days prazosin 2 mg PO BEDTIME simvastatin 5 mg PO BEDTIME sucralfate 10 mL PO BID sucralfate (Carafate) 10 mL PO BID tramadol 50 mg PO Q12H PRN valacyclovir 500 mg PO DAILY PRN HPI Piercing stuck in lip HPI Details 52-year-old female referred for a piercing stuck inside the inner lip. She has had this piercing for several years. However, for the past 3 weeks, she had noticed swelling and drainage. She says that she went to an urgent care center and if she was started on antibiotics 3 weeks ago because of some drainage from the piercing site along with swelling. She went back to the [facility] over the weekend and the external part of the piercing was removed. However, the part of the piercing on the mucosal side was already covered by mucosa that had grown over this so she was referred to me. She describes some drainage still from the piercings. [facility] Medical History (Updated 03/18/23 @ 15:27 by Eddie Fan MD) Essential hypertension Foreign body (FB) in soft tissue Hyperlipidemia Hypochromic microcytic anemia Hypothyroidism Nausea & vomiting Obesity due to excess calories Osteoarthritis Personal history of nicotine dependence Surgical History History of carpal tunnel release History of colonoscopy History of esophagogastroduodenoscopy (EGD) History of shoulder surgery History of tonsillectomy Family History Father Lung cancer Mother Congestive heart failure Type 2 diabetes mellitus Social History Household Members: None Housing: Other Housing Other:: sober community Do you presently have visiting nurse or other home services: No Alcohol intake: former Patient Tobacco Use Status: Current everyday Tobacco user Substance Use Type: Crack/Cocaine and Former Substance User service: No Current occupational status: employed Female Reproductive History Menstrual Age of Menarche: 11 Review of Systems Const Denies chills and Denies fever(s) Card Denies chest pain, Denies dyspnea and Denies dyspnea on exertion Resp Denies cough, Denies dyspnea and Denies dyspnea on exertion GI Denies hematochezia and Denies change in bowel habits Denies hematuria Musc Denies back pain and Denies limited range of motion Neuro Denies focal weakness and Denies convulsions Psych Denies depression and Denies mood swings Physical Exam Const General: comfortable and no acute distress Orientation/consciousness: patient oriented x3 HEENT Other: Swelling on the left upper lip area with a palpable foreign body on the mucosal side, some purulent discharge Neck Neck: Yes no lymphadenopathy Resp Auscultation: clear to auscultation bilaterally Cardio Rhythm: regular rhythm GI Palpation (GI): Soft to palpation, nontender and no guarding Neuro General: patient oriented x3 Office Procedures Foreign Body Removal Details: I infiltrated the area with lidocaine 1% after prepping and draping. I then used a hemostat to open a old piercing side in the inner aspect of the left upper lip. By exploring this with a hemostat I was able to find the foreign body which was a piercing and I was able to pull this out without difficulty. There was some pus noted as well. I squeeze the area to remove as much of the pus as possible. She tolerated the procedure well. There were no immediate complications. She says that all the foreign body has been removed now. 38031-Hazfmih body removal, complex Procedure code (CPT) selection complete Assessment & Plan Assessment & Plan (1) Foreign body (FB) in soft tissue: Code(s): M79.5 - Residual foreign body in soft tissue Plan: She has a foreign body stuck within the left upper lip and the mucosa has grown over this. She wanted this removed now and is waiting to go for this under local anesthesia. I explained the technique of this procedure. I reviewed the risks, benefits, and alternatives and she had given consent Infiltrated the area with lidocaine 1%. I then used a hemostat to open up the area from the mucosal side and was able to find the inner aspect of the foreign body which was a piercing. I was able to retrieve this without difficulty. T here was note of some pus in the area as well I cleaned the area and instructed her on good wound care including mouthwash. I told her that I can see her in the office on a p.r.n. basis. Coding Level of Care Code New Pt Level 3 (12841) Diagnoses Foreign body (FB) in soft tissue M79.5 CPT Codes Details - Foreign body complex: 37500-Bdwsvde body removal, complex ([id number])
[2023-03-18 15:13] VITALS: BP 120/80; BMI 36.8
== END 2023-03-18 15:24 | disposition home or self-care (01) ==
PROVIDERS: PCP Nurse Practitioner Family; Visit Provider Surgery
DX: M79.5 Residual foreign body in soft tissue (principal); L08.9 Local infection of the skin and subcutaneous tissue, unspecified
CPT/HCPCS: 10121; 99203

== ENCOUNTER → 2023-03-18 14:41 | Outpatient (BNVA) | payer MEDICAID, SELFPAY | PROVIDERS: PCP Nurse Practitioner Family; Visit Provider Surgery | DX: M79.5 Residual foreign body in soft tissue (principal) | CPT/HCPCS: 99202 ==

== ENCOUNTER 2023-04-24 12:41 | Outpatient (AMB) | payer MEDICAID, SELFPAY ==
[2023-04-24 12:43] VITALS: BP 122/76; BMI 36.0
--- NOTE | 2023-04-24 12:43 | A.OFFVIS_ITS ---
Intake Vital Signs 04/24/23 12:43 Height 5 ft 6 in Weight 223 lb BMI 36.0 BP 122/76 Intake Visit Reasons: Colpo/co testing Crystalizer Operator Required: No Information Interpreted: non-clinical & clinical Armored Car Guard And Driver: Armored Car Guard And Driver Present (Aidyn) Allergies Penicillins Allergy (Unknown, Verified 04/24/23 12:52) Anaphylaxis Is last menstrual period known: No HPI HPI Comments History of Present Illness Details Here for 6 months follow-up for FELICITA 2, for expectant management with co testing/colpo PFSH Medical History Foreign body (FB) in soft tissue Personal history of nicotine dependence Hyperlipidemia Nausea & vomiting Hypochromic microcytic anemia Obesity due to excess calories Hypothyroidism Osteoarthritis Essential hypertension Surgical History History of shoulder surgery History of tonsillectomy History of colonoscopy History of esophagogastroduodenoscopy (EGD) History of carpal tunnel release Family History Father Lung cancer Mother Congestive heart failure Type 2 diabetes mellitus Social History Household Members: None Housing: Other Housing Other:: sober community Do you presently have visiting nurse or other home services: No Alcohol intake: former Patient Tobacco Use Status: Current everyday Tobacco user Substance Use Type: Crack/Cocaine and Former Substance User service: No Current occupational status: employed Female Reproductive History Menstrual Age of Menarche: 11 control method: none Date of last pap smear: 08/15/22 History of abnormal pap smear: Yes Review of Systems Const All systems reviewed & are unremarkable except as noted in HPI and below Physical Exam General: Yes no CVA tenderness External Female Exam: normal external appearance and normal appearance of the urethra Speculum Exam - Vagina: normal appearance of the vagina, normal palpation, no lesions and no masses Speculum Exam - Cervix: normal appearance of the cervix, normal palpation, no lesions, no masses and nontender Bimanual exam- vagina & uterus: normal bimanual exam, normal palpation, uterine size normal, normal palpation, uterine shape normal, No Cervical tenderness present and non-tender Bimanual Exam- Adnexa, other: normal adnexae Back/Spine/Pelvis Back: no CVA tenderness Office Procedures Colposcopy Before the procedure was started discussed with the patient the procedure, alternatives & all the risks associated with the procedure (bleeding, infection, injury to vagina, bladder, vessels, possible need for transfusion with all its risks) then patient signed the consent FELICITA 2 for expectant manage with co testing and colpo Speculum inserted, acetic acid used Colposcopy done Transformation zone seen, acetowhite lesions identified at 11+1 o?clock, cervical biopsies taken from 11+1 o?clock, ECC done afterwards. Vaginoscopy of the upper vagina showed no evidence of any aceto-white lesions Monsel solution used for hemostasis. The patient tolerated well . At the end the patient was instructed to call if temp>100.4, abdominal pain, n/ v, bleeding; The patient was given the following instructions: nothing per vagina, no intercourse or bath tub use. All questions answered the patient verbalized understanding. Instructed the patient to make an appointment in 2 weeks for follow-up This note was generated with a voice recognition program. Some errors may have been overlooked during the review of this note. Sometimes these errors may affect the content or meaning of a given sentence. 59148-Qlotwrpfv of cervix including upper vagina with biopsy and ECC Procedure code (CPT) selection complete Assessment & Plan Assessment & Plan (1) FELICITA II (cervical intraepithelial neoplasia II): Code(s): N87.1 - Moderate cervical dysplasia Plan: Co testing done, colpo done, see procedure note. Instructions given the patient to schedule a 2 week follow-up appointment Orders: Orders AMB Colposcopy Today N87.1 - Moderate cervical dysplasia Coding Level of Care Code Procedure Only Diagnoses FELICITA II (cervical intraepithelial neoplasia II) N87.1 CPT Codes Colposcopy - CPT: 95579-Mpqjbzhxf of cervix including upper vagina with biopsy and ECC ([id number])
== END 2023-04-24 13:13 | disposition home or self-care (01) ==
PROVIDERS: Visit Provider Obstetrics & Gynecology
DX: N87.1 Moderate cervical dysplasia (principal)
CPT/HCPCS: 57454

== ENCOUNTER 2023-04-24 12:41 | Outpatient (REF) | payer MEDICAID, SELFPAY | END 2023-04-24 12:42 | disposition home or self-care (01) | LOC: HO.LNP 12:41 | PROVIDERS: Visit Provider Obstetrics & Gynecology | DX: N87.1 Moderate cervical dysplasia (principal) | CPT/HCPCS: 57454; 88305 ==

== ENCOUNTER 2023-05-02 15:23 | Outpatient (AMB) | payer MEDICAID, SELFPAY ==
--- NOTE | 2023-05-02 15:23 | MHC.OFFVIS ---
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 The patient is doing well with no complaints. The pathology showed the following: A. Cervix, 1 o'clock, biopsy: Squamous mucosa within normal limits; no endocervical component seen; negative for squamous intraepithelial lesion. B. Cervix, 11 o'clock, biopsy: Squamous mucosa within normal limits; no endocervical component seen; negative for squamous intraepithelial lesion. C. Endocervix, curettage: High-grade squamous intraepithelial lesion (FELICITA 2) The patient was diagnosed 6 months ago FELICITA 2 and elected to proceed with expectant management with observation [facility] Medical History Foreign body (FB) in soft tissue Personal history of nicotine dependence Hyperlipidemia Nausea & vomiting Hypochromic microcytic anemia Obesity due to excess calories Hypothyroidism Osteoarthritis Essential hypertension Surgical History History of shoulder surgery History of tonsillectomy History of colonoscopy History of esophagogastroduodenoscopy (EGD) History of carpal tunnel release Family History Father Lung cancer Mother Congestive heart failure Type 2 diabetes mellitus Social History Household Members: None Housing: Other Housing Other:: sober community Do you presently have visiting nurse or other home services: No Alcohol intake: former Patient Tobacco Use Status: Current everyday Tobacco user Substance Use Type: Crack/Cocaine and Former Substance User service: No Current occupational status: employed Female Reproductive History Menstrual Age of Menarche: 11 Date of last menstrual period: 05/26/20 Total pregnancies: 2 Full term: 2 Review of Systems Card Reports as per HPI and Reports no additional complaints Resp Reports as per HPI and Reports no additional complaints GI Reports as per HPI and Reports no additional complaints Reports as per HPI Physical Exam Const General: cooperative, healthy appearing and comfortable Chest Chest palpation & inspection: normal inspection of the chest and normal palpation of entire chest wall Breast/axilla inspection: normal inspection of the breasts and normal inspection of the axillae Breast/axilla palpation: normal palpation of the breasts, normal palpation of the axillae and no axillary lymphadenopathy Resp Effort & Inspection: normal respiratory effort Auscultation: clear to auscultation bilaterally Percussion: percussion normal Cardio Palpation: normal PMI Rate: regular rate Rhythm: regular rhythm Heart sounds: no murmurs and no rubs Peripheral pulses: Peripheral pulses 2+ throughout GI Inspection: Yes normal to inspection Palpation (GI): Soft to palpation, nontender, no guarding, not rigid and No hepatosplenomegaly present Percussion: Yes normal to percussion Auscultation: normal bowel sounds Rectal Exam - Female: deferred Assessment & Plan Assessment & Plan (1) FELICITA II (cervical intraepithelial neoplasia II): Code(s): N87.1 - Moderate cervical dysplasia Plan: Discussed with the patient the pathology results of the colposcopy biopsies & endocervical curettage ( moderate dysplasia-FELICITA 2). Discussed with the patient the sensitivity specificity, positive and negative predictive value in detecting cervical cancer in addition discussed the regression, persistence and progression rates. Addition discussed with the patient the risk of progression to cancer and impact of excision procedure on her future . Per ASCCP guidelines, 2 options of management were discussed with the patient including either observation with HPV based screening and colposcopy biopsy at 6 months and 12 months versus a diagnostic excisional procedures, which is the preferred method of management. The patient is concerned more about the progression of FELICITA 2 to cancer than the excisional procedure impact on her future and she decided to proceed with a LEEP cone with post cone ECC. Discussed with the patient the procedure, its benefits and risks including bleeding, infection, possible need for blood transfusion with all its risk ( HIV, syphilis, Hepatitis, anaphylaxis shock, others..), injury to bladder, rectum, possible need for re-excision or hysterectomy for positive margins, potential need for hysterectomy. Also discussed the patient options of anesthesia either paracervical block versus IV sedation/MAC, prefers to proceed with IV sedation/MAC . All questions answered, the patient verbalized understanding and signed the consent. Instructions given to patient to schedule a postop appointment. Coding Level of Care Code Est Pt Level 3 (08819) Diagnoses FELICITA II (cervical intraepithelial neoplasia II) N87.1
[2023-05-02 15:26] VITALS: BP 138/100; BMI 35.9
== END 2023-05-02 16:11 | disposition home or self-care (01) ==
PROVIDERS: PCP Nurse Practitioner Family; Visit Provider Obstetrics & Gynecology
DX: N87.1 Moderate cervical dysplasia (principal)
CPT/HCPCS: 99213

== ENCOUNTER → 2023-05-02 15:23 | Outpatient (BNVA) | payer MEDICAID, SELFPAY | PROVIDERS: PCP Nurse Practitioner Family; Visit Provider Obstetrics & Gynecology | DX: N87.1 Moderate cervical dysplasia (principal) | CPT/HCPCS: 99212 ==

== ENCOUNTER 2023-05-24 12:02 | Outpatient (REF) | payer MEDICAID, SELFPAY ==
[2023-05-24 14:50] LABS: TSH reflex Free T4 2.96 uIU/mL (0.32-4.0)
== END 2023-05-24 12:03 | disposition home or self-care (01) ==
LOC: HO.HHCL 12:02
PROVIDERS: Visit Provider Nurse Practitioner Family
DX: E07.9 Disorder of thyroid, unspecified (principal)
CPT/HCPCS: 36415; 84443

== ENCOUNTER → 2023-06-14 10:58 | Day surgery (SDC) | payer MEDICAID, SELFPAY ==
[2023-06-12 10:05] VITALS: BMI 35.9
[2023-06-14 12:04] VITALS: BP 140/70; PULSE 66; RESP 16; TEMP 37; O2SAT 98; BMI 35.3
--- NOTE | 2023-06-14 12:24 | PC.NURSE ---
Patient states she took her combo blood pressure medication this morning. This medication name not known. She states it was recently added to med list. Unable to find medication name in any prior notes. Dr. Choudhury made aware.
--- NOTE | 2023-06-14 13:55 | PC.NURSE ---
Patient ready for procedure, resting comfortably in bed [address] Connor at bedside requesting all facial piercings (x4) be removed prior to this procedure due to cautery and risk of lovell. Patient unable to remove piercings herself, but comfortable with staff trying. This nurse placed call to ED. ED staff at bedside and attempted to remove them with forceps. Unable to be removed. Patient understands and to reschedule once they are all removed properly. Dr. Connor and OR team aware.
== END ==
PROVIDERS: PCP Nurse Practitioner Family; Visit Provider Obstetrics & Gynecology
DX: N87.1 Moderate cervical dysplasia (principal); Z53.8 Procedure and treatment not carried out for other reasons

== ENCOUNTER 2023-07-17 14:53 | Outpatient (AMB) | payer MEDICAID, SELFPAY ==
[2023-07-17 14:57] VITALS: BP 124/80; BMI 35.2
--- NOTE | 2023-07-17 14:57 | A.OFFVIS_ITS ---
Intake Vital Signs 07/17/23 14:57 Height 5 ft 6 in Weight 218 lb BMI 35.2 BP 124/80 Intake Visit Reasons: pre op Payroll Assistant Required: No Prosthetic Aide: Prosthetic Aide Present Allergies Penicillins Allergy (Severe, Verified 07/17/23 14:58) Anaphylaxis Is last menstrual period known: No Post menopausal: Yes Patient : No Do you need a note to return to daycare/school/sports/work: Yes (for surgery on saturday) HPI HPI Comments History of Present Illness Details Presenting post colpo for follow-up. The patient is doing well with no complaints. The pathology showed the following: A. Cervix, 1 o'clock, biopsy: Squamous mucosa within normal limits; no endocervical component seen; negative for squamous intraepithelial lesion. B. Cervix, 11 o'clock, biopsy: Squamous mucosa within normal limits; no endocervical component seen; negative for squamous intraepithelial lesion. C. Endocervix, curettage: High-grade squamous intraepithelial lesion (FELICITA 2). COMMENT: Note is made of the patient's cervical biopsy ([id number]; FELICITA 1-2) that correlates with the above findings [facility] Medical History Foreign body (FB) in soft tissue Personal history of nicotine dependence Hyperlipidemia Nausea & vomiting Hypochromic microcytic anemia Obesity due to excess calories Hypothyroidism Osteoarthritis Essential hypertension Surgical History History of hernia surgery History of shoulder surgery History of tonsillectomy History of colonoscopy History of esophagogastroduodenoscopy (EGD) History of carpal tunnel release Family History Father Lung cancer Mother Congestive heart failure Type 2 diabetes mellitus Social History Household Members: None Housing: Other Housing Other:: sober community Do you presently have visiting nurse or other home services: No Alcohol intake: former Patient Tobacco Use Status: Current everyday Tobacco user Tobacco use type: Cigarette Years Smoked: 20 Substance Use Type: Crack/Cocaine and Former Substance User service: No Current occupational status: employed Female Reproductive History Menstrual Age of Menarche: 11 Date of last menstrual period: 05/26/20 control method: none Total pregnancies: 2 Full term: 2 Review of Systems Card Reports as per HPI and Reports no additional complaints Resp Reports as per HPI and Reports no additional complaints GI Reports as per HPI and Reports no additional complaints Reports as per HPI Physical Exam Vital Signs: Last Vital Signs BP 124/80 07/17/23 14:57 BMI result Body Mass Index 35.2 Const General: cooperative, healthy appearing and comfortable Chest Chest palpation & inspection: normal inspection of the chest and normal palpation of entire chest wall Breast/axilla inspection: normal inspection of the breasts and normal inspection of the axillae Breast/axilla palpation: normal palpation of the breasts, normal palpation of the axillae and no axillary lymphadenopathy Resp Effort & Inspection: normal respiratory effort Auscultation: clear to auscultation bilaterally Percussion: percussion normal Cardio Palpation: normal PMI Rate: regular rate Rhythm: regular rhythm Heart sounds: no murmurs and no rubs Peripheral pulses: Peripheral pulses 2+ throughout GI Inspection: Yes normal to inspection Palpation (GI): Soft to palpation, nontender, no guarding, not rigid and No hepatosplenomegaly present Percussion: Yes normal to percussion Auscultation: normal bowel sounds Rectal Exam - Female: deferred Assessment & Plan Assessment & Plan (1) FELICITA II (cervical intraepithelial neoplasia II): Code(s): N87.1 - Moderate cervical dysplasia Plan: Discussed with the patient the pathology results of the colposcopy biopsies & endocervical curettage ( moderate dysplasia-FELICITA 2). Discussed with the patient the sensitivity specificity, positive and negative predictive value in detecting cervical cancer in addition discussed the regression, persistence and progression rates. Addition discussed with the patient the risk of progression to cancer . Per ASCCP guidelines, 2 options of management were discussed with the patient including either observation with HPV based screening and colposcopy biopsy at 6 months and 12 months versus a diagnostic excisional procedures, which is the preferred method of management. The patient is concerned more about the progression of FELICITA 2 to cancer and she decided to proceed with a LEEP cone with post cone ECC. Discussed with the patient the procedure, its benefits and risks including bleeding, infection, possible need for blood transfusion with all its risk ( HIV, syphilis, Hepatitis, anaphylaxis shock, others..), injury to bladder, rectum, possible re-excision for positive margins, potential need for hysterectomy, possible positive margin necessitating re-excision. Also discus sed the patient options of anesthesia either paracervical block versus IV sedation/MAC, prefers to proceed with IV sedation/MAC. All questions answered, the patient verbalized understanding and signed the consent. Coding Level of Care Code Est Pt Level 3 (69889) Diagnoses FELICITA II (cervical intraepithelial neoplasia II) N87.1
== END 2023-07-17 15:22 | disposition home or self-care (01) ==
LOC: HO.HWS 14:53
PROVIDERS: PCP Nurse Practitioner Family; Visit Provider Obstetrics & Gynecology
DX: N87.1 Moderate cervical dysplasia (principal)
CPT/HCPCS: 99213

== ENCOUNTER → 2023-07-17 14:53 | Outpatient (BNVA) | payer MEDICAID, SELFPAY | PROVIDERS: PCP Nurse Practitioner Family; Visit Provider Obstetrics & Gynecology | DX: N87.1 Moderate cervical dysplasia (principal) | CPT/HCPCS: 99212 ==

== ENCOUNTER 2023-07-30 14:28 | Emergency (ER) | payer MEDICAID, SELFPAY ==
--- NOTE | ~2023-07-30 | CT_ITS ---
EXAMINATION: CT ABDOMEN AND PELVIS WITH CONTRAST CLINICAL INFORMATION: Severe abdominal pain COMPARISON: None available. TECHNIQUE: Multidetector volumetric images were obtained from the superior aspect of the liver through the pubic symphysis following administration 85 mL of Omnipaque 350 intravenous contrast. Sagittal and coronal reformatted images were obtained on the technologist's workstation. Oral contrast: No This CT examination was performed using dose optimization techniques as appropriate, variously including the following: *Automated exposure control *Adjustment of mA and/or kV according to patient size (this includes techniques or standardized protocols for targeted exams where dose is matched to indication/reason for exam; i.e. extremities or head) *Use of iterative reconstruction technique DLP: 783 mGy-cm FINDINGS: LUNG BASES: There is bibasilar atelectasis heart size is normal. Mild coronary artery calcifications are present. LIVER, GALLBLADDER, AND BILIARY TREE: The liver is normal in size, shape, and attenuation. No focal hepatic lesion or biliary ductal dilatation is present. There is a 1.8 cm calcified gallstone without wall thickening. PANCREAS: Unremarkable. SPLEEN: Unremarkable. ADRENAL GLANDS: There is a 1 cm right adrenal lesion measuring 25 Hounsfield units. The left adrenal gland is unremarkable. KIDNEYS AND URETERS: The kidneys are normal in size, shape, and attenuation. No hydronephrosis, hydroureter, or calculi seen. No perinephric stranding. BLADDER: Unremarkable. GASTROINTESTINAL TRACT: There is scattered stool, diverticuli and gas seen throughout the colon without mural thickening or pericolic fat stranding. Appendix is normal caliber. There are surgical sutures along the medial fundus of the stomach likely from previous hernia repair. ABDOMINAL WALL: There is a midline umbilical hernia containing mesenteric fat. LYMPH NODES: Normal. VASCULAR: Unremarkable. PELVIC VISCERA: The uterus is anteverted and appears unremarkable. OSSEOUS STRUCTURES: There are degenerative disc changes T7-T8 through L1-L2 and L4-L5 disc levels with ventral spondylosis and vacuum disc phenomena. CT/CT abdomen pelvis w IV con IMPRESSION: 1. No acute intra-abdominal process seen. 2. Cholelithiasis without wall thickening. 3. Colonic diverticulosis without diverticulitis. 4. Small midline umbilical hernia containing mesenteric fat. 5. There is a 1 cm right adrenal lesion measuring 25 Hounsfield units. Fleischner guidelines were followed.
[2023-07-30 15:06] VITALS: BP 210/120; PULSE 76; O2SAT 98; BMI 35.2
--- NOTE | 2023-07-30 15:19 | ED.GENADULT ---
HPI - General Adult General Chief complaint: Nausea/Vomiting/Diarrhea Stated complaint: ABD PAIN,VOMITING,DIARRHEA PER EMS Time Seen by Provider: 07/30/23 14:57 Source: patient and EMS Mode of arrival: EMS Limitations: no limitations History of Present Illness HPI narrative: This is a 53-year-old female history of hiatal hernia, anemia, nicotine dependence, obesity presenting to the emergency department for evaluation of severe abdominal pain, diffuse in nature with associated nausea, vomiting that started yesterday, patient reports she thought this was food poisoning however it did not improve overnight steady got worse, she reports pain is 10/10, when I ask her where it hurts the most she points to the suprapubic region feels like 30 thousand red ants inside of me . she denies associated urinary symptoms. She is screaming out in pain stating pain is 10/10 and she can not handle it upon arrival. No chest pain, shortness of breath, headache, vision changes, dizziness, weakness, sick contacts. She does mention she had history of hiatal hernia which was repaired and she thinks this may be another 1. Related Data Home Medications Medication Instructions Recorded Confirmed amlodipine 5 mg tablet 5 mg PO DAILY 11/08/20 06/14/23 prazosin 2 mg capsule 2 mg PO BEDTIME 11/08/20 06/14/23 simvastatin 5 mg tablet 5 mg PO BEDTIME 11/08/20 06/14/23 valacyclovir 500 mg tablet 500 mg PO DAILY PRN Outbreak 11/08/20 06/14/23 ferrous sulfate 325 mg (65 mg 325 mg PO DAILY 10/17/21 06/14/23 iron) tablet gabapentin 300 mg capsule 300 mg PO TID 10/17/21 06/14/23 hydroxyzine pamoate 25 mg capsule 25 mg PO BID PRN Anxiety 10/17/21 06/14/23 omeprazole 20 mg capsule,delayed 20 mg PO BIDAC 10/17/21 06/14/23 release sucralfate 100 mg/mL oral 10 ml PO BID 10/17/21 06/14/23 suspension (Carafate) tramadol 50 mg tablet 50 mg PO Q12H PRN Pain 11/16/21 06/14/23 clindamycin HCl 300 mg capsule 300 mg PO TID 06/14/23 06/14/23 Previous Rx's Medication Instructions Recorded levothyroxine 137 mcg capsule 137 mcg PO DAILY #30 caps 11/08/20 omeprazole 20 mg capsule,delayed 20 mg PO BID 14 days #28 caps 06/10/22 release fluconazole 150 mg tablet 150 mg PO Q3D 2 doses #2 tabs 03/10/23 (Diflucan) nitrofurantoin 100 mg PO BID 5 days #10 caps 07/30/23 monohydrate/macrocrystals 100 mg capsule (Macrobid) ondansetron 4 mg disintegrating 4 mg PO Q6H PRN nausea and 07/30/23 tablet vomiting #14 tabs Allergies Allergy/AdvReac Type Severity Reaction Status Date / Time Penicillins Allergy Severe Anaphylaxis Verified 07/30/23 15:06 Review of Systems Review of Systems: Constitutional : No Weight loss, No Fever, No Chills, No Fatigue, No Malaise ENT/Mouth : No sore throat, No Rhinorrhea Eyes: No Eye Pain, No Swelling, No Redness Cardiovascular : No Chest Pain, No SOB, No Dyspnea on Exertion, No Orthopnea, No Edema, No Palpitations Respiratory : No Cough, No Sputum, No Wheezing Gastrointestinal : + Nausea, + Vomiting, No Diarrhea, No Constipation, + abdominal Pain, No Hematochezia, No Melena Genitourinary : No Dysuria, No Urinary Frequency, No Hematuria, Musculoskeletal : No joint pain, No Myalgias, No Joint Swelling Skin : No Skin Lesions, No rash Neuro : No Weakness, No Numbness, No Dizziness, No Headache Psych : No Anxiety/Panic, No Depression All other systems reviewed and are negative Yes all other systems are reviewed and are negative PMFSH Past Medical History Attestation statement: The following information was validated with the patient. Source: old records reviewed and nursing notes reviewed Onset Date is defined in the Problem List Problems that require an onset date and time if occurred within 24 hrs of arrival to the ED Aortic Dissection and Rupture; Neurologic impairment; Cardiopulmonary Arrest; Endotracheal Intubation; Insertion or Replacement of Mechanical Circulatory Assist Device Medical History Foreign body (FB) in soft tissue Personal history of nicotine dependence Hyperlipidemia Nausea & vomiting Hypochromic microcytic anemia Obesity due to excess calories Hypothyroidism Osteoarthritis Essential hypertension Surgical History History of hernia surgery History of shoulder surgery History of tonsillectomy History of colonoscopy History of esophagogastroduodenoscopy (EGD) History of carpal tunnel release Family History Family History Father Lung cancer Mother Congestive heart failure Type 2 diabetes mellitus Social History Social History Household Members: None Housing: Other Housing Other:: sober community Do you presently have visiting nurse or other home services: No Alcohol intake: former Patient Tobacco Use Status: Current everyday Tobacco user Tobacco use type: Cigarette Years Smoked: 20 Smoked in Last 30 Days: Yes Use of substances other than those prescribed or required for medical reasons: Yes Substance Use Type: Marijuana Advance Directives: No Advance Directives Information Provided: No Patient : No service: No Current occupational status: employed Physical Exam ED Vital Signs: Vital Signs - 24 hr 07/30/23 16:23 07/30/23 18:31 Temperature 98.3 F Pulse Rate 69 79 Respiratory Rate 16 16 Blood Pressure 183/106 H 123/57 L Pulse Oximetry 98 94 Oxygen Delivery Method Room Air Room Air BMI result Body Mass Index 35.2 Vital signs stable Appearance: Alert.? Oriented X3.? No acute distress.? Patient screaming in pain help help Head: Normocephalic, atraumatic, no step-offs or deformities Eyes: Pupils equal, round and reactive to light.? ENT: Pharynx normal.? Neck: Normal inspection.? Neck supple.? CVS: Normal heart rate and rhythm.? Pulses normal.? Respiratory: No respiratory distress.? Breath sounds normal.? Abdomen: Soft and Diffuse abdominal discomfort ( worse in epigastri region) normoactive bowel sounds. No palpable hernias on my exam or masses Skin: Skin warm and dry.? Normal skin color.? Normal skin turgor.? Extremities: No lower extremity edema.? No calf ttp. 5/5 strength to bilateral upper and lower extremities Back: No midline tenderness, no C-spine tenderness, full range of motion, no CVA tenderness bilaterally Neuro: Oriented X 3.? No motor deficit.? No sensory deficit. CN 2-12 intact Course Reevaluation(s) Reevaluation #1: CBC with leukocytosis and left shift, this is likely inflammatory versus reactive versus infection. I do not suspect sepsis from these labs. Chemistry with no acute findings requiring intervention. Initial troponin negative, EKG nonischemic unlikely ACS, dissection. Patient's UA with positive leukocyte esterases and trace bacteria will treat for a urinary tract infection. With p.o. antibiotics for home. CT abdomen pelvis no acute intra-abdominal process seen. Cholelithiasis without wall thickening pain is not localized to the right upper quadrant do not suspect acute coli cystitis. Colonic diverticulosis without diverticulitis. Small midline umbilical hernia containing fat, I do not suspect strangulated/incarcerated hernia 1 cm right adrenal lesion patient made aware of this. Patient to be discharged home. Feeling better. Second trop pending Good pain control w/ morphine Time: 18:55 Reevaluation #2: 2nd troponin meeting delta criteria 65.1, still not complaining of CP or SOB. Will trend at the two hour vasquez. EKG pending ? demand ischemia. No need for morphine, oxygen, nitro or asa this time. Still reporting symptomatic improvment Time: 19:40 Reevaluation #3: Exressed concerns of elevated trop to patient im not staying i came for my stomach not my heart... im not staying . Allowing for an EKG Additional Reevaluation(s): patient yelling at staff memebers. Refusing workup she says she has been here for too long.I explained to her there could be something wrong with her heart she tells me there is not. Screaming cursing at staff and security demanding to leave explained risks of leaving ama and she says noone can stop me from leaving...its not my heart . 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 Giving security a hard time also. 2027 Left w/o recieving d/c paperwork. Medications Administered Discontinued Medications Generic Name Dose Route Start Last Admin Trade Name Freq PRN Reason Stop Dose Admin Iohexol 100 ml 07/30/23 17:23 07/30/23 17:24 Iohexol 350 Mg/Ml 100 Ml Infus..Btl IV 07/30/23 17:24 85 ml ONCE ONE Administration Lorazepam 1 mg 07/30/23 15:44 07/30/23 16:21 Lorazepam 2 Mg/Ml Vial IVPUSH 07/30/23 15:45 1 mg STAT STA Administration Morphine Sulfate 4 mg 07/30/23 15:06 07/30/23 15:23 Morphine Sulfate 4 Mg/Ml Cartridge IVPUSH 07/30/23 15:07 4 mg ONCE ONE Administration Protocol Ondansetron HCl 4 mg 07/30/23 15:06 07/30/23 15:23 Ondansetron Hcl 4 Mg/2 Ml Vial IVPUSH 07/30/23 15:07 4 mg ONCE ONE Administration Medical Decision Making Medical Decision Making [facility] Narrative: 53-year-old female presents with nausea, vomiting and abdominal pain since yesterday. Physical exam Soft and Diffuse abdominal discomfort normoactive bowel sounds. No palpable hernias on my exam or masses. Patient screaming out in pain History and physical exam concerning for possible kidney stone versus gastroenteritis versus viral illness versus anxiety versus obstruction. Unlikely appendicitis, cholecystitis, pancreatitis. Unlikely acute abdomen. Will rule out metabolic derangements, UTI Plan at this time labs, imaging, urine. Differential Diagnosis Differential Diagnoses: The differential diagnosis associated with the presentation includes History and physical exam concerning for possible kidney stone versus gastroenteritis versus viral illness versus anxiety versus obstruction. Unlikely appendicitis, cholecystitis, pancreatitis. Unlikely acute abdomen. Will rule out metabolic derangements, UTI Admission/Observation Consideration of admission/observation: Escalation of care including admission/observation considered possible Lab Data [facility] Lab Attestation statement: I reviewed the patient's lab results. 07/30/23 15:16 07/30/23 15:16 Labs: Lab Results 07/30/23 07/30/23 07/30/23 Range/Units 15:16 15:47 18:36 WBC 11.0 H (4.8-10.8) X10*3/uL RBC 4.30 (4.20-5.50) X10*6/uL Hgb 11.1 L (12.0-16.0) g/dl Hct 34.1 L (37.0-47.0) % MCV 79.3 L (80.0-98.0) fL MCH 25.8 L (27.0-33.0) pg MCHC 32.6 (31.0-35.0) g/dl RDW 14.8 (11.0-16.0) % Plt Count 331 (160-400) X10*3/uL MPV 10.6 (9.4-12.3) fL Immature Gran % (Auto) 0.5 H (0.0-0.4) % Neut % (Auto) 80.9 H (45-73) % Lymph % (Auto) 13.4 L (20-40) % [place] % (Auto) 4.4 (2-11) % Eos % (Auto) 0.5 (0-4) % Baso % (Auto) 0.3 (0-2) % Lymph # (Auto) 1.5 (1.2-4.9) X10*3/uL [place] # (Auto) 0.5 (0.1-1.2) X10*3/uL Eos # (Auto) 0.1 (0.0-0.4) X10*3/uL Baso # (Auto) 0.0 (0.0-0.2) X10*3/uL Abs Immat Gran (auto) 0.05 H (0.00-0.03) X10*3/uL Absolute Neuts (auto) 8.9 H (2.0-8.3) x10*3/uL Absolute Nucleated RBC 0.000 (0.0-0.012) X10*3/uL Nucleated RBC % (auto) 0.0 (0.0-0.2) /100WBC Sodium 144 (135-145) mmol/L Potassium 3.5 (3.3-5.1) mmol/L Chloride 111 H (96-108) mmol/L Carbon Dioxide 22 (22-29) mmol/L Anion Gap 15 (12-20) BUN 13 (9-16) mg/dL Creatinine 0.89 (0.5-1.4) mg/dL Estim Creat Clear Calc 84.7 Estimated GFR > 60 Random Glucose 110 (60-115) mg/dL Lactic Acid 1.2 (0.5-2.0) mmol/L Calcium 9.5 (8.4-10.2) mg/dL Total Bilirubin 0.3 (0.0-1.0) mg/dL AST 22 (5-31) U/L ALT 18 (0-31) U/L Alkaline Phosphatase 103 (39-117) U/L Troponin I High Sens 15.2 65.1 H* D (<3.5-17.0) ng/L Total Protein 6.9 (6.5-8.0) g/dL Albumin 3.9 (3.5-5.0) g/dL Lipase 27 (8-78) U/L Urine Color Yellow Urine Appearance Clear Urine pH 6.0 (5.0-9.0) Ur Specific [place] 1.015 (1.005-1.025) Urine Protein Negative (Neg-Trace) mg/dL Urine Glucose (UA) Negative (Negative) mg/dL Urine Ketones Negative (Negative) mg/dL Urine Blood Negative (Negative) Urine Nitrite Negative (Negative) Ur Leukocyte Esterase Small (1+) H (Negative) Urine RBC 0-2 (0-2) /HPF Urine WBC 0-5 (0-5) /HPF Ur Squamous Epith Cells 3-5 (0-2) /HPF Urine Bacteria Trace (None Seen) Hyaline Casts 3-5 (0-2) /LPF Independent Interpretation I performed an independent interpretation of an: CT Scan Radiology Impression Discussion of test interpretation with radiology: I have reviewed the radiologist's reading. Critical Care Time Critical Care Time Critical Care Time: No Discharge Plan Discharge Clinical Impression: Abdominal pain, Nausea & vomiting, UTI (urinary tract infection), Left against medical advice Patient Disposition: Home, Self-Care Instructions: Acute Nausea and Vomiting (ED), Abdominal Pain (ED) Additional Instructions: Take your medications as prescribed. If you were prescribed antibiotics today, it is important that you take your medication to their entirety, do not skip any doses, do not finish them early. Follow-up with your primary care provider this week. Return to the emergency department with new or worsening symptoms. Such as fevers, chills, chest pain, shortness of breath, nausea, vomiting, dizziness, headache, vision changes, lethargy In case of emergency call 911 Patient received morphine while in the department this could alter a drug toxicology test. CT/CT abdomen pelvis w IV con IMPRESSION: 1. No acute intra-abdominal process seen. 2. Cholelithiasis without wall thickening. 3. Colonic diverticulosis without diverticulitis. 4. Small midline umbilical hernia containing mesenteric fat. 5. There is a 1 cm right adrenal lesion measuring 25 Hounsfield units. Prescriptions: New ondansetron 4 mg tablet,disintegrating 4 mg PO Q6H PRN (Reason: nausea and vomiting) Qty: 14 0RF nitrofurantoin monohyd/m-cryst [Macrobid] 100 mg capsule 100 mg PO BID 5 Days Qty: 10 0RF Rx Instructions: must administer with a meal/food No Action sucralfate [Carafate] 100 mg/mL Suspension 10 ml PO BID ferrous sulfate 325 mg (65 mg iron) Tablet 325 mg PO DAILY gabapentin 300 mg Capsule 300 mg PO TID omeprazole 20 mg Capsule,Delayed Release(Dr/Ec) 20 mg PO BIDAC hydroxyzine pamoate 25 mg Capsule 25 mg PO BID PRN (Reason: Anxiety) omeprazole 20 mg capsule,delayed release(DR/EC) 20 mg PO BID 14 Days Qty: 28 0RF clindamycin HCl 300 mg capsule 300 mg PO TID fluconazole [Diflucan] 150 mg tablet 150 mg PO Q3D Qty: 2 0RF Rx Instructions: may repeat second dose 72 hrs after first dose if symptoms persist prazosin 2 mg capsule 2 mg PO BEDTIME simvastatin 5 mg tablet 5 mg PO BEDTIME amlodipine 5 mg tablet 5 mg PO DAILY valacyclovir 500 mg tablet 500 mg PO DAILY PRN (Reason: Outbreak) levothyroxine 137 mcg capsule 137 mcg PO DAILY Qty: 30 6RF tramadol 50 mg tablet 50 mg PO Q12H PRN (Reason: Pain) Referrals: Josette Stuart NP [Primary Care Provider] - 2 days Stand Alone Forms: Against Medical Advice
[2023-07-30 15:22] LABS: MANUAL DIFF FLAG NO
[2023-07-30] MEDS: Morphine Sulfate 4 MG/ML CARTRIDGE IVPUSH (15:23)
[2023-07-30] MEDS: ondansetron HCL 4 MG/2 ML VIAL IVPUSH (15:23)
[2023-07-30 15:24] LABS: Basophils Percent Auto 0.3 % (0-2); Eosinophils Absolute Auto 0.1 X10*3/uL (0.0-0.4); Eosinophils Percent Auto 0.5 % (0-4); Hematocrit 34.1 % (37.0-47.0); Hemoglobin 11.1 g/dl (12.0-16.0); Imm Gran Abs Auto 0.05 X10*3/uL (0.00-0.03); Imm Gran Pct Auto 0.5 % (0.0-0.4); Lymphocytes Absolute Auto 1.5 X10*3/uL (1.2-4.9); Lymphocytes Percent Auto 13.4 % (20-40); Mean Corpuscular HGB Conc 32.6 g/dl (31.0-35.0); Mean Corpuscular Hemoglobin 25.8 pg (27.0-33.0); Mean Corpuscular Volume 79.3 fL (80.0-98.0); Mean Platelet Volume 10.6 fL (9.4-12.3); Monocytes Absolute Auto 0.5 X10*3/uL (0.1-1.2); Monocytes Percent Auto 4.4 % (2-11); Neutrophils Absolute Auto 8.9 x10*3/uL (2.0-8.3); Neutrophils Percent Auto 80.9 % (45-73); Platelet Count 331 X10*3/uL (160-400); Red Cell Distribution Width 14.8 % (11.0-16.0)
--- NOTE | 2023-07-30 15:25 | PC.NURSE ---
medication administered per provider order.
--- NOTE | 2023-07-30 15:27 | PC.NURSE ---
20gIV placed in the left AC - labs obtained/sent to lab. medication administered per provider order.
[2023-07-30 15:37] LABS: Lactic Acid 1.2 mmol/L (0.5-2.0)
[2023-07-30 15:42] LABS: Alanine Aminotransferase 18 U/L (0-31); Albumin Level 3.9 g/dL (3.5-5.0); Alkaline Phosphatase 103 U/L (39-117); Anion Gap 15 (12-20); Aspartate Amino Transferase 22 U/L (5-31); Bilirubin Total 0.3 mg/dL (0.0-1.0); Blood Urea Nitrogen 13 mg/dL (9-16); Calcium 9.5 mg/dL (8.4-10.2); Carbon Dioxide 22 mmol/L (22-29); Chloride 111 mmol/L (96-108); Creatinine Clr Calc Pharmacy 84.7; Estimated Glomerular Filt Rate > 60; Glucose Random 110 mg/dL (60-115); Lipase 27 U/L (8-78); Potassium 3.5 mmol/L (3.3-5.1); Sodium 144 mmol/L (135-145); Total Protein 6.9 g/dL (6.5-8.0)
[2023-07-30 15:46] LABS: Troponin-I High Sensitivity 15.2 ng/L (<3.5-17.0)
[2023-07-30 16:00] LABS: Appearance Urine Clear; Color Urine Yellow; Glucose Urine UA Negative (Negative); Leukocyte Esterase Urine Small (1+) (Negative); Nitrite Urine Negative (Negative); Specific Gravity - Urine 1.015 (1.005-1.025); UMIC TRIGGER UACC YES; Urine Blood Negative (Negative); Urine Ketones Negative (Negative); Urine Protein Negative (Neg-Trace)
[2023-07-30 16:09] LABS: Bacteria Urine Trace (None Seen); RBC Urine 0-2 /HPF (0-2); UACC Culture Trigger YES; WBC Urine 0-5 /HPF (0-5)
[2023-07-30] MEDS: LORazepam 2 MG/ML VIAL 1 MG IVPUSH (16:21)
--- NOTE | 2023-07-30 16:22 | PC.NURSE ---
medication administered per provider order. pt waiting to go to CT at this time.
[2023-07-30 16:23] VITALS: BP 183/106; PULSE 69; RESP 16; O2SAT 98
--- NOTE | 2023-07-30 17:15 | PC.NURSE ---
pt to CT at this time.
[2023-07-30] MEDS: iohexoL 350 MG/ML 100 ML INFUS..BTL IV (17:24)
[2023-07-30 18:31] VITALS: BP 123/57; PULSE 79; RESP 16; TEMP 36.8; O2SAT 94
[2023-07-30 19:07] LABS: Troponin-I High Sensitivity 65.1 ng/L (<3.5-17.0)
--- NOTE | 2023-07-30 19:39 | ECG_ITS ---
Test Reason : ELEVATED TROP Blood Pressure : / mmHG Vent. Rate : 074 BPM Atrial Rate : 074 BPM P-R Int : 144 ms QRS Dur : 082 ms QT Int : 410 ms P-R-T Axes : 048 027 041 degrees QTc Int : 455 ms Normal sinus rhythm Normal ECG When compared with ECG of 14-OCT-2021 07:00, No significant change was found Referred By: Naomy Adames Electronically Signed By:Peña Roper
--- NOTE | 2023-07-30 20:27 | PC.NURSE ---
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 Security needing to be called for assistance.
--- NOTE | 2023-07-30 20:53 | PC.NURSE ---
pt refusing paperwork upon discharge.
== END 2023-07-30 20:53 | disposition home or self-care (01) ==
PROVIDERS: Physician Assistant; Emergency Provider Emergency Medicine; PCP Nurse Practitioner Family
DX: N39.0 Urinary tract infection, site not specified (principal); R10.9 Unspecified abdominal pain; R11.2 Nausea with vomiting, unspecified; I10 Essential (primary) hypertension; E78.5 Hyperlipidemia, unspecified; F17.210 Nicotine dependence, cigarettes, uncomplicated; F12.90 Cannabis use, unspecified, uncomplicated; Z53.29 Procedure and treatment not carried out because of patient's decision for other reasons; Z79.899 Other long term (current) drug therapy
CPT/HCPCS: 36415; 74177; 80053; 81001; 81003; 83605; 83690; 84484; 85025; 87040; 87086; 93005; 96374; 96375; 99284; J2060; J2270; J2405; Q9967

== ENCOUNTER → 2023-07-30 19:39 | Outpatient (BNV) | payer MEDICAID, SELFPAY | PROVIDERS: Emergency Provider Emergency Medicine; PCP Nurse Practitioner Family; Visit Provider Internal Medicine Cardiovascular Disease | DX: R11.2 Nausea with vomiting, unspecified (principal) | CPT/HCPCS: 93010 ==

== ENCOUNTER 2023-08-01 17:47 | Outpatient (REF) | payer MEDICAID, SELFPAY | END 2023-08-01 17:48 | disposition home or self-care (01) | LOC: HO.HHCLNP 17:47 | PROVIDERS: Visit Provider Student in an Organized Health Care Education/Training Program | DX: R30.0 Dysuria (principal) | CPT/HCPCS: 81001; 87086 ==

== ENCOUNTER → 2023-08-02 | Day surgery (SDC) | payer MEDICAID, SELFPAY ==
--- NOTE | 2023-08-01 08:54 | HO.ANESPROP2 ---
HPI - Anesthesia Eval Consult details Narrative: 53yo F for LEEP,poss loop electric excision,poss loop electrical,cone and post endocervical curettage Previously cx'd d/t inability to remove piercings by pt and ED staff. Pt to have professionally removed prior to surgery. PMFSH Active Problems Active Problems: All Active Problems (Updated 07/31/23 @ 00:02 by David Norwood) Screening for STD (sexually transmitted disease) (Acute) FELICITA II (cervical intraepithelial neoplasia II) (Acute) ASCUS with positive high risk HPV cervical (Acute) Schatzki's ring (Acute) Diverticular disease (Acute) Hemorrhoids (Acute) Pulmonary nodule (Acute) Incarcerated paraesophageal hernia (Acute) Hiatal hernia (Acute) Iron deficiency anemia (Acute) Anemia (Acute) Abdominal pain (Acute) Anemia (Acute) Foreign body (FB) in soft tissue (Acute) Personal history of nicotine dependence (Acute) Nausea & vomiting (Acute) Hypothyroidism (Acute) Obesity due to excess calories (Acute) Past Medical History Medical History Foreign body (FB) in soft tissue Personal history of nicotine dependence Hyperlipidemia Nausea & vomiting Hypochromic microcytic anemia Obesity due to excess calories Hypothyroidism Osteoarthritis Essential hypertension Family History Family History Father Lung cancer Mother Congestive heart failure Type 2 diabetes mellitus Family history of problems with anesthesia: No Surgical History Surgical History History of hernia surgery History of shoulder surgery History of tonsillectomy History of colonoscopy History of esophagogastroduodenoscopy (EGD) History of carpal tunnel release History of Problems with Anesthesia: No Social History Social History Household Members: None Housing: Other Housing Other:: sober community Do you presently have visiting nurse or other home services: No Alcohol intake: former Patient Tobacco Use Status: Current everyday Tobacco user Tobacco use type: Cigarette Years Smoked: 20 Substance Use Type: Marijuana service: No Current occupational status: employed Meds Allergies Allergy/AdvReac Type Severity Reaction Status Date / Time Penicillins Allergy Severe Anaphylaxis Verified 07/30/23 15:06 Home Medications Medication Instructions Recorded Confirmed Last Taken Type amlodipine 5 mg tablet 5 mg PO DAILY 11/08/20 06/14/23 11/23/21 History prazosin 2 mg capsule 2 mg PO BEDTIME 11/08/20 06/14/23 Unknown History simvastatin 5 mg tablet 5 mg PO BEDTIME 11/08/20 06/14/23 Unknown History valacyclovir 500 mg tablet 500 mg PO DAILY PRN Outbreak 11/08/20 06/14/23 Unknown History ferrous sulfate 325 mg (65 mg 325 mg PO DAILY 10/17/21 06/14/23 06/12/23 History iron) tablet gabapentin 300 mg capsule 300 mg PO TID 10/17/21 06/14/23 11/23/21 History hydroxyzine pamoate 25 mg capsule 25 mg PO BID PRN Anxiety 10/17/21 06/14/23 Unknown History omeprazole 20 mg capsule,delayed 20 mg PO BIDAC 10/17/21 06/14/23 11/23/21 History release sucralfate 100 mg/mL oral 10 ml PO BID 10/17/21 06/14/23 Unknown History suspension (Carafate) tramadol 50 mg tablet 50 mg PO Q12H PRN Pain 11/16/21 06/14/23 11/23/21 History clindamycin HCl 300 mg capsule 300 mg PO TID 06/14/23 06/14/23 Unknown History Assessment and Plan Final Anesthetic Review Family History of Problems with Anesthesia: No History of Problems with Anesthesia: No
== END ==
PROVIDERS: PCP Nurse Practitioner Family; Visit Provider Obstetrics & Gynecology
DX: N87.1 Moderate cervical dysplasia (principal); Z53.20 Procedure and treatment not carried out because of patient's decision for unspecified reasons

== ENCOUNTER 2023-08-14 10:23 | Outpatient (REF) | payer MEDICAID, SELFPAY ==
[2023-08-14 11:29] LABS: Hematocrit 37.5 % (37.0-47.0); Mean Corpuscular Volume 81.2 fL (80.0-98.0); Mean Platelet Volume 10.9 fL (9.4-12.3); Platelet Count 339 X10*3/uL (160-400); Red Blood Count 4.62 X10*6/uL (4.20-5.50); Red Cell Distribution Width 14.7 % (11.0-16.0); White Blood Count 6.8 X10*3/uL (4.8-10.8)
[2023-08-14 11:35] LABS: Estimated Average Glucose 105 mg/dL; Hemoglobin A1c % 5.3 % (<6.0)
[2023-08-14 12:21] LABS: Alanine Aminotransferase 14 U/L (0-31); Albumin Level 3.8 g/dL (3.5-5.0); Alkaline Phosphatase 92 U/L (39-117); Anion Gap 11 (12-20); Aspartate Amino Transferase 15 U/L (5-31); Bilirubin Total 0.5 mg/dL (0.0-1.0); Blood Urea Nitrogen 14 mg/dL (9-16); Calcium 9.2 mg/dL (8.4-10.2); Carbon Dioxide 23 mmol/L (22-29); Chloride 109 mmol/L (96-108); Cholesterol 174 mg/dL (<200); Estimated Glomerular Filt Rate 46; Glucose Random 85 mg/dL (60-115); HDL Cholesterol 52 mg/dL (>40); LDL Cholesterol Calculated 94 mg/dL (<100); Potassium 3.9 mmol/L (3.3-5.1); Sodium 139 mmol/L (135-145); Total Protein 6.6 g/dL (6.5-8.0); Triglycerides 142 mg/dL (<150)
[2023-08-14 12:37] LABS: TSH reflex Free T4 7.16 uIU/mL (0.32-4.0)
[2023-08-14 13:16] LABS: Free T4 (Free Thyroxine) 0.81 ng/dL (0.71-1.85)
== END 2023-08-14 10:24 | disposition home or self-care (01) ==
LOC: HO.HHCL 10:23
PROVIDERS: Visit Provider Student in an Organized Health Care Education/Training Program
DX: R74.8 Abnormal levels of other serum enzymes (principal)
CPT/HCPCS: 36415; 80053; 80061; 83036; 84439; 84443; 85027

== ENCOUNTER 2023-09-04 16:19 | Outpatient (REF) | payer MEDICAID, SELFPAY ==
[2023-09-04 17:43] LABS: MANUAL DIFF FLAG NO
[2023-09-04 17:50] LABS: Basophils Absolute Auto 0.1 X10*3/uL (0.0-0.2); Basophils Percent Auto 0.9 % (0-2); Eosinophils Absolute Auto 0.4 X10*3/uL (0.0-0.4); Eosinophils Percent Auto 3.8 % (0-4); Hematocrit 37.5 % (37.0-47.0); Hemoglobin 11.6 g/dl (12.0-16.0); Imm Gran Abs Auto 0.04 X10*3/uL (0.00-0.03); Imm Gran Pct Auto 0.4 % (0.0-0.4); Lymphocytes Absolute Auto 3.6 X10*3/uL (1.2-4.9); Mean Corpuscular HGB Conc 30.9 g/dl (31.0-35.0); Mean Corpuscular Hemoglobin 25.2 pg (27.0-33.0); Mean Corpuscular Volume 81.3 fL (80.0-98.0); Mean Platelet Volume 11.4 fL (9.4-12.3); Monocytes Percent Auto 10.6 % (2-11); Neutrophils Absolute Auto 4.2 x10*3/uL (2.0-8.3); Neutrophils Percent Auto 45.3 % (45-73); Platelet Count 339 X10*3/uL (160-400); Red Blood Count 4.61 X10*6/uL (4.20-5.50); Red Cell Distribution Width 14.6 % (11.0-16.0); White Blood Count 9.3 X10*3/uL (4.8-10.8)
[2023-09-04 18:58] LABS: TSH reflex Free T4 0.11 uIU/mL (0.32-4.0)
[2023-09-04 19:33] LABS: Free T4 (Free Thyroxine) 1.41 ng/dL (0.71-1.85)
== END 2023-09-04 16:20 | disposition home or self-care (01) ==
LOC: HO.HHCL 16:19
PROVIDERS: Visit Provider Nurse Practitioner Family
DX: E07.9 Disorder of thyroid, unspecified (principal); R53.83 Other fatigue
CPT/HCPCS: 36415; 84439; 84443; 85025

== ENCOUNTER 2023-10-04 10:46 | Outpatient (AMB) | payer MEDICAID, SELFPAY ==
[2023-10-04 10:50] VITALS: BP 140/90; PULSE 85; BMI 36.8
--- NOTE | 2023-10-04 10:50 | A.OFFVIS_ITS ---
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 She had presented to the emergency room with severe abdominal discomfort, she describes a burning discomfort and she was concerned a nd a lot of pain. She came to the emergency room and troponin was done for unclear reason. She denies any chest pain or shortness of breath. Patient was also noted to have significantly elevated blood pressure that time due to abdominal discomfort. She subsequently was noted to have slight rise in troponin from in the normal range 2 in the 63 range. However at that point time patient was explained that she might need to stay in the hospital she signed out against medical advise. Patient says she never had any cardiac symptoms. Comes for follow-up. She has longstanding history of hypertension and hyperlipidemia for which she takes medications. Blood pressure is well optimized. She says over the last year or so she has lost significant amount of weight and she is also currently not smoking. But she has prior history of smoking. She denies any exertional chest pain or shortness of breath. Denies any other cardiac symptoms at current time. [facility] Medical History Foreign body (FB) in soft tissue Personal history of nicotine dependence Hyperlipidemia Nausea & vomiting Hypochromic microcytic anemia Obesity due to excess calories Hypothyroidism Osteoarthritis Essential hypertension Surgical History History of hernia surgery History of shoulder surgery History of tonsillectomy History of colonoscopy History of esophagogastroduodenoscopy (EGD) History of carpal tunnel release Family History Father Lung cancer Mother Congestive heart failure Type 2 diabetes mellitus Social History Household Members: None Housing: Other Housing Other:: sober community Do you presently have visiting nurse or other home services: No Alcohol intake: former Patient Tobacco Use Status: Current everyday Tobacco user Tobacco use type: Cigarette Years Smoked: 20 Substance Use Type: Marijuana service: No Current occupational status: employed Female Reproductive History Menstrual Age of Menarche: 11 Review of Systems Const Reports no additional complaints ENT Reports dizziness Card Denies chest pain, Denies chest pain at rest, Denies chest pain with activity, Denies rapid heart rate, Denies pedal edema, Denies edema, Denies leg edema, Denies lightheadedness, Denies palpitations, Denies dyspnea, Denies dyspnea on exertion and Denies orthopnea Resp Denies cough, Denies dyspnea and Denies dyspnea on exertion GI Denies hematochezia and Denies change in stool character Musc Denies abnormal gait, Reports limited range of motion, Reports muscle cramps, Denies muscle weakness, Denies numbness, Denies radiating pain into limb, Denies stiffness and Denies tingling Neuro Denies abnormal gait, Reports dizziness, Denies numbness and Denies tingling Endo Denies palpitations Physical Exam Vital Signs: Last Vital Signs Pulse 85 10/04/23 10:50 BP 140/90 H 10/04/23 10:50 BMI result Body Mass Index 36.8 Const General: cooperative, comfortable, no acute distress, alert and awake Nutritional Appearance: obese Orientation/consciousness: patient oriented x3 Limitations: no limitations HEENT Head: Yes normocephalic and Yes atraumatic Neck Neck: Yes trachea midline, Yes supple and Yes no JVD Resp Effort & Inspection: normal respiratory effort Auscultation: clear to auscultation bilaterally Cardio Jugular venous distension: no JVD Palpation: normal PMI Rate: regular rate Rhythm: regular rhythm Heart sounds: S1 normal heart sound present, S2 normal heart sound present, no click, no gallops, no murmurs and no rubs GI Auscultation: normal bowel sounds Skin General skin exam: no rashes or lesions noted Neuro General: patient oriented x3 and no focal motor deficits Extrem General: Yes no clubbing, cyanosis or edema Office Procedures EKG Details: EKG shows normal sinus rhythm with nonspecific ST changes 21250-[id number], Complete Assessment & Plan Assessment & Plan (1) Elevated troponin: Code(s): R79.89 - Other specified abnormal findings of blood chemistry Plan: Elevated troponin in this middle-aged woman, in the setting of acute abdominal discomfort and elevated blood pressure. Not sure why the troponin was drawn at that point in time. Her patient at that point time signed out against medical advise. Since then she has had no recurrent cardiac symptoms to report. Although a abnormal troponin could be secondary to acute abdominal discomfort and stress-induced by the acute abdominal discomfort and/or significantly elevated blood pressure causing subendocardial ischemia, obstructive coronary artery disease needs to be ruled out as underlying significant coronary disease can affect prognosis. This was discussed with her. Will suggest a exercise myocardial perfusion imaging to assess for the same in the future. Also suggest echocardiogram to evaluate for LV systolic and diastolic function to evaluate for hypertensive heart disease. These tests will be scheduled in near future. We discussed about aggressive risk factor modification. Blood pressure is currently well optimized on current therapy. Importance of good blood pressure control was discussed. Complete smoking cessation was advised. I will also continue statin therapy with target goal LDL less than 70 mg/dL. Continue participate in regular exercise once a stress test is completed in weight loss program. She understands agrees. Follow up in the clinic in 4 weeks time, sooner p.r.n.. Thank you for allowing me to partake in the care Coding Level of Care Code New Pt Level 4 (05582) Diagnoses Elevated troponin R79.89 CPT Codes EKG - CPT: 75043-[id number], Complete ([id number])
== END 2023-10-04 11:17 | disposition home or self-care (01) ==
PROVIDERS: PCP Nurse Practitioner Family; Referring Provider Nurse Practitioner Family; Visit Provider Internal Medicine Cardiovascular Disease
DX: R79.89 Other specified abnormal findings of blood chemistry (principal)
CPT/HCPCS: 93010; 99204

== ENCOUNTER → 2023-10-04 10:46 | Outpatient (BNVA) | payer MEDICAID, SELFPAY | PROVIDERS: PCP Nurse Practitioner Family; Visit Provider Internal Medicine Cardiovascular Disease | DX: R79.89 Other specified abnormal findings of blood chemistry (principal) | CPT/HCPCS: 93005; 99202 ==

== ENCOUNTER 2023-10-16 16:00 | Outpatient (REF) | payer MEDICAID, SELFPAY ==
[2023-10-16 17:49] LABS: Appearance Urine Cloudy; Color Urine Yellow; Glucose Urine UA Negative (Negative); Leukocyte Esterase Urine Moderate (2+) (Negative); Nitrite Urine Negative (Negative); Specific Gravity - Urine 1.015 (1.005-1.025); UMIC TRIGGER UACC YES; Urine Blood Negative (Negative); Urine Ketones Negative (Negative); Urine Protein Negative (Neg-Trace)
[2023-10-16 17:51] LABS: Bacteria Urine Trace (None Seen); Hyaline Casts Urine 0-2 /LPF (0-2); RBC Urine 0-2 /HPF (0-2); UACC Culture Trigger YES; WBC Urine >50 /HPF (0-5)
[2023-10-16 18:37] LABS: TSH reflex Free T4 0.15 uIU/mL (0.32-4.0)
[2023-10-16 19:13] LABS: Free T4 (Free Thyroxine) 1.34 ng/dL (0.71-1.85)
== END 2023-10-16 16:01 | disposition home or self-care (01) ==
LOC: HO.HHCL 16:00
PROVIDERS: Student in an Organized Health Care Education/Training Program; Visit Provider Nurse Practitioner Family
DX: E03.9 Hypothyroidism, unspecified (principal); R30.0 Dysuria
CPT/HCPCS: 36415; 81001; 84439; 84443; 87086; 87147

== ENCOUNTER 2023-10-18 22:44 | Emergency (ER) | payer MEDICAID, SELFPAY ==
--- NOTE | ~2023-10-18 | CT_ITS ---
EXAMINATION: CT ABDOMEN AND PELVIS WITH CONTRAST CLINICAL INFORMATION: Abdominal pain and vomiting. COMPARISON: None available. TECHNIQUE: Multidetector volumetric images were obtained from the superior aspect of the liver through the pubic symphysis following administration 85 mL of Omnipaque 350 intravenous contrast. Sagittal and coronal reformatted images were obtained on the technologist's workstation. Oral contrast: No This CT examination was performed using dose optimization techniques as appropriate, variously including the following: *Automated exposure control *Adjustment of mA and/or kV according to patient size (this includes techniques or standardized protocols for targeted exams where dose is matched to indication/reason for exam; i.e. extremities or head) *Use of iterative reconstruction technique DLP: 757 mGy-cm FINDINGS: LUNG BASES: The visualized lung bases are unremarkable. LIVER, GALLBLADDER, AND BILIARY TREE: The liver is normal in size, shape, and attenuation. No focal hepatic lesion or biliary ductal dilatation is present. There is a single 1.8 cm gallstone. PANCREAS: Unremarkable. SPLEEN: Unremarkable. ADRENAL GLANDS: Mild bilateral adrenal gland thickening/nodularity. KIDNEYS AND URETERS: The kidneys are normal in size, shape, and attenuation. No hydronephrosis, hydroureter, or calculi seen. No perinephric stranding. BLADDER: Unremarkable. GASTROINTESTINAL TRACT: There are prominent fluid-filled mid to distal small bowel loops and fluid throughout the colon. There are diverticula of the descending and sigmoid colon without diverticulitis. The appendix is visualized and is within normal limits. ABDOMINAL WALL: There is a left mid abdominal wall hernia containing fat. LYMPH NODES: Normal. VASCULAR: Unremarkable. PELVIC VISCERA: Unremarkable. OSSEOUS STRUCTURES: There is diffuse thoracolumbar disc degenerative change. CT/CT abdomen pelvis w IV con IMPRESSION: 1. Prominent fluid-filled mid to distal small bowel loops and fluid throughout the colon. This is nonspecific but can be seen in the setting of enterocolitis. 2. Cholelithiasis without evidence of cholecystitis. 3. Diverticula of the descending and sigmoid colon without diverticulitis. 4. Left mid abdominal wall hernia containing fat. Fleischner guidelines were followed.
[2023-10-18 22:51] VITALS: BP 159/92; PULSE 64; PULSE 71; RESP 12; TEMP 37.2; O2SAT 100; O2SAT 99
--- NOTE | 2023-10-18 23:01 | ECG_ITS ---
Test Reason : ABDOMINAL PAIN Blood Pressure : / mmHG Vent. Rate : 065 BPM Atrial Rate : 065 BPM P-R Int : 136 ms QRS Dur : 084 ms QT Int : 446 ms P-R-T Axes : 052 034 036 degrees QTc Int : 463 ms Normal sinus rhythm with sinus arrhythmia Normal ECG When compared with ECG of 30-JUL-2023 19:56, No significant change was found Referred By: Generic ED Physician Electronically Signed By:VICENTE RUIZ
[2023-10-18 23:13] VITALS: BP 201/97; PULSE 92; RESP 20; TEMP 36.5; O2SAT 100
[2023-10-18 23:15] LABS: Basophils Absolute Auto 0.1 X10*3/uL (0.0-0.2); Basophils Percent Auto 0.7 % (0-2); Eosinophils Absolute Auto 0.1 X10*3/uL (0.0-0.4); Hematocrit 36.7 % (37.0-47.0); Hemoglobin 12.1 g/dl (12.0-16.0); Imm Gran Abs Auto 0.03 X10*3/uL (0.00-0.03); Imm Gran Pct Auto 0.2 % (0.0-0.4); Lymphocytes Absolute Auto 2.2 X10*3/uL (1.2-4.9); Lymphocytes Percent Auto 16.4 % (20-40); MANUAL DIFF FLAG NO; Mean Corpuscular Hemoglobin 24.8 pg (27.0-33.0); Mean Corpuscular Volume 75.4 fL (80.0-98.0); Mean Platelet Volume 11.2 fL (9.4-12.3); Monocytes Absolute Auto 0.9 X10*3/uL (0.1-1.2); Monocytes Percent Auto 6.9 % (2-11); Neutrophils Absolute Auto 10.1 x10*3/uL (2.0-8.3); Neutrophils Percent Auto 74.8 % (45-73); Platelet Count 277 X10*3/uL (160-400); Red Blood Count 4.87 X10*6/uL (4.20-5.50); Red Cell Distribution Width 14.6 % (11.0-16.0); White Blood Count 13.5 X10*3/uL (4.8-10.8)
[2023-10-18 23:28] VITALS: RESP 16
[2023-10-18] MEDS: Morphine Sulfate 4 MG/ML CARTRIDGE IVPUSH (23:28)
[2023-10-18] MEDS: droPERidol 5 MG/2 ML VIAL 1.25 MG IVPUSH (23:29)
[2023-10-18 23:31] LABS: Alanine Aminotransferase 12 U/L (0-31); Albumin Level 3.9 g/dL (3.5-5.0); Alkaline Phosphatase 91 U/L (39-117); Anion Gap 16 (12-20); Aspartate Amino Transferase 22 U/L (5-31); Bilirubin Total 0.3 mg/dL (0.0-1.0); Blood Urea Nitrogen 16 mg/dL (9-16); Calcium 9.5 mg/dL (8.4-10.2); Carbon Dioxide 22 mmol/L (22-29); Chloride 110 mmol/L (96-108); Creatinine Clr Calc Pharmacy 90.5; Estimated Glomerular Filt Rate 54; Glucose Random 119 mg/dL (60-115); Lipase 18 U/L (8-78); Potassium 3.9 mmol/L (3.3-5.1); Sodium 144 mmol/L (135-145); Total Protein 7.1 g/dL (6.5-8.0)
[2023-10-18 23:33] LABS: Appearance Urine Cloudy; Color Urine Yellow; Glucose Urine UA Negative (Negative); Leukocyte Esterase Urine Moderate (2+) (Negative); Nitrite Urine Negative (Negative); PH 5.5 (5.0-9.0); Specific Gravity - Urine 1.025 (1.005-1.025); UMIC TRIGGER UACC YES; Urine Blood Negative (Negative); Urine Ketones Trace mg/dL (Negative); Urine Protein Negative (Neg-Trace)
[2023-10-18 23:36] LABS: Bacteria Urine 1+ (None Seen); RBC Urine 0-2 /HPF (0-2); UACC Culture Trigger YES; WBC Urine 21-50 /HPF (0-5)
[2023-10-18 23:37] LABS: Troponin-I High Sensitivity < 2.7 ng/L (<3.5-17.0)
[2023-10-18 23:40] LABS: UPreg QC Valid YES; Urine Pregnancy NEGATIVE (NEGATIVE)
[2023-10-19 00:09] LABS: Influenza A PCR NEGATIVE (Negative); Influenza B PCR NEGATIVE (Negative); Resp Syncy Virus RNA Qual PCR NEGATIVE (Negative); SARS COV2 PCR INHOUSE NEGATIVE (Negative)
[2023-10-19 00:17] LABS: Amphetamine Screen Urine Not Detected (Not Detect); Barbiturates, Urine Not Detected (Not Detect); Benzodiazepines Screen Urine Not Detected (Not Detect); Cannabinoid Screen Urine POSITIVE (Not Detect); Cocaine Screen Urine Not Detected (Not Detect); Fentanyl, urine Not Detected (Not Detect); Opiate Screen Urine Not Detected (Not Detect); Phencyclidine Screen Urine Not Detected (Not Detect)
[2023-10-19 00:20] VITALS: RESP 16
[2023-10-19] MEDS: Morphine Sulfate 4 MG/ML CARTRIDGE IVPUSH (00:20)
[2023-10-19] MEDS: Famotidine/PF 20 MG/2 ML VIAL IVPUSH (00:21)
[2023-10-19] MEDS: droPERidol 5 MG/2 ML VIAL 1.25 MG IVPUSH (00:21)
[2023-10-19 00:24] LABS: C Reactive Protein < 0.10 mg/dL (< or = 0.50)
[2023-10-19] MEDS: 0.9 % Sodium Chloride 1,000 ML 999 ML IV (00:52)
[2023-10-19] MEDS: iohexoL 350 MG/ML 100 ML INFUS..BTL 85 ML IV (01:05)
[2023-10-19 01:51] VITALS: BP 131/71; PULSE 63; RESP 14; TEMP 36.6; O2SAT 98
--- NOTE | 2023-10-19 02:58 | ED_ITS ---
HPI - General Adult General Chief complaint: Nausea/Vomiting/Diarrhea Stated complaint: 05/07 ABD PAIN Time Seen by Provider: 10/18/23 23:05 History of Present Illness HPI narrative: The patient says that she developed acute lower abdominal pain this evening that was severe associated with vomiting and diarrhea. It is similar to an episode that happened in July when she was seen in the emergency room. She indicates she feels the pain primarily in her lower abdomen. No fevers. Related Data Home Medications Medication Instructions Recorded Confirmed amlodipine 5 mg tablet 5 mg PO DAILY 11/08/20 10/04/23 prazosin 2 mg capsule 2 mg PO BEDTIME 11/08/20 10/04/23 simvastatin 5 mg tablet 5 mg PO BEDTIME 11/08/20 10/04/23 ferrous sulfate 325 mg (65 mg 325 mg PO DAILY 10/17/21 10/04/23 iron) tablet gabapentin 300 mg capsule 300 mg PO TID 10/17/21 10/04/23 hydroxyzine pamoate 25 mg capsule 25 mg PO BID PRN Anxiety 10/17/21 10/04/23 omeprazole 20 mg capsule,delayed 20 mg PO BIDAC 10/17/21 10/04/23 release tramadol 50 mg tablet 50 mg PO Q12H PRN Pain 11/16/21 10/04/23 clindamycin HCl 300 mg capsule 300 mg PO TID 06/14/23 10/04/23 Previous Rx's Medication Instructions Recorded levothyroxine 137 mcg capsule 137 mcg PO DAILY #30 caps 11/08/20 Allergies Allergy/AdvReac Type Severity Reaction Status Date / Time Penicillins Allergy Severe Anaphylaxis Verified 10/04/23 10:53 Review of Systems 2 Review of Systems: Yes all other systems are reviewed and are negative [facility] Past Medical History Medical History Foreign body (FB) in soft tissue Personal history of nicotine dependence Hyperlipidemia Nausea & vomiting Hypochromic microcytic anemia Obesity due to excess calories Hypothyroidism Osteoarthritis Essential hypertension Surgical History History of hernia surgery History of shoulder surgery History of tonsillectomy History of colonoscopy History of esophagogastroduodenoscopy (EGD) History of carpal tunnel release Family History Family History Father Lung cancer Mother Congestive heart failure Type 2 diabetes mellitus Social History Social History Household Members: None Housing: Other Housing Other:: sober community Do you presently have visiting nurse or other home services: No Alcohol intake: former Patient Tobacco Use Status: Current everyday Tobacco user Tobacco use type: Cigarette Years Smoked: 20 Smoked in Last 30 Days: Yes Use of substances other than those prescribed or required for medical reasons: Yes Substance Use Type: Marijuana Substance Use Frequency: Daily Advance Directives: No Advance Directives Information Provided: Yes Patient : No service: No Current occupational status: employed Physical Exam ED Vital Signs: Vital Signs - 24 hr 10/18/23 22:51 10/18/23 23:13 10/18/23 23:28 Temperature 98.9 F 97.7 F Pulse Rate 64 92 Respiratory Rate 12 20 16 Blood Pressure 159/92 H 201/97 H Pulse Oximetry 100 100 Oxygen Delivery Method Room Air Room Air 10/19/23 00:20 10/19/23 01:51 10/19/23 03:06 Temperature 97.8 F 98.3 F Pulse Rate 63 89 Respiratory Rate 16 14 16 Blood Pressure 131/71 131/72 Pulse Oximetry 98 99 Oxygen Delivery Method Room Air Room Air BMI result Body Mass Index 0.3 Const Other: The patient was awake and alert. She was histrionic and screaming in pain. HENMT Other: Face was symmetrical, mucous membranes moist Eyes Other: Pupils are round equal, conjunctivae clear, extraocular movements intact Neck Other: No JVD Resp Effort & Inspection: normal respiratory effort Auscultation: clear to auscultation bilaterally Cardio Palpation: normal PMI Rate: regular rate Rhythm: regular rhythm and abnormal rhythm GI Other: The patient seemed to have lower abdominal tenderness in both lower quadrants Skin Other: Skin was dry and unremarkable Neuro Other: The patient was initially writhing as if in discomfort and seemed very histrionic. However her speech was clear, face was symmetrical, and she moves her extremities symmetrically. She seemed to have a nonfocal neurological exam Extrem Other: No calf swelling or tenderness Medications Administered Discontinued Medications Generic Name Dose Route Start Last Admin Trade Name Freq PRN Reason Stop Dose Admin Droperidol 1.25 mg 10/18/23 23:12 10/18/23 23:29 Droperidol 5 Mg/2 Ml Vial IVPUSH 10/18/23 23:13 1.25 mg ONCE ONE Administration Droperidol 1.25 mg 10/19/23 00:02 10/19/23 00:21 Droperidol 5 Mg/2 Ml Vial IVPUSH 10/19/23 00:03 1.25 mg ONCE ONE Administration Famotidine 20 mg 10/19/23 00:03 10/19/23 00:21 Famotidine/Pf 20 Mg/2 Ml Vial IVPUSH 10/19/23 00:04 20 mg ONCE ONE Administration Sodium Chloride 1,000 mls @ 999 mls/hr 10/19/23 00:30 10/19/23 02:05 Ns IV 10/19/23 01:30 Infused .Q1H1M ITZEL Infusion Iohexol 85 ml 10/19/23 01:05 10/19/23 01:05 Iohexol 350 Mg/Ml 100 Ml Infus..Btl IV 10/19/23 01:06 85 ml ONCE ONE Administration Morphine Sulfate 4 mg 10/18/23 23:11 10/18/23 23:28 Morphine Sulfate 4 Mg/Ml Cartridge IVPUSH 10/18/23 23:12 4 mg ONCE ONE Administration Protocol Morphine Sulfate 4 mg 10/19/23 00:02 10/19/23 00:20 Morphine Sulfate 4 Mg/Ml Cartridge IVPUSH 10/19/23 00:03 4 mg ONCE ONE Administration Protocol Medical Decision Making Medical Decision Making MDM Narrative: The patient presented in a very histrionic manner, writhing on the stretcher and yelling. The patient indicated this was very similar to a syndrome she experienced 2 months ago at the beginning of July. Clinically I do not have any suspicion for an acute coronary syndrome. My clinical suspicion was primarily for cannabis hyperemesis. She was treated with morphine and droperidol observed. She had a CT scan of the abdomen and pelvis which was unremarkable. She was ultimately discharged. She was advised to be careful with marijuana in the future Lab Data 10/18/23 23:10 10/18/23 23:10 Labs: Lab Results 10/18/23 10/18/23 10/18/23 Range/Units 23:10 23:27 23:33 WBC 13.5 H (4.8-10.8) X10*3/uL RBC 4.87 (4.20-5.50) X10*6/uL Hgb 12.1 (12.0-16.0) g/dl Hct 36.7 L (37.0-47.0) % MCV 75.4 L (80.0-98.0) fL MCH 24.8 L (27.0-33.0) pg MCHC 33.0 (31.0-35.0) g/dl RDW 14.6 (11.0-16.0) % Plt Count 277 (160-400) X10*3/uL MPV 11.2 (9.4-12.3) fL Immature Gran % (Auto) 0.2 (0.0-0.4) % Neut % (Auto) 74.8 H (45-73) % Lymph % (Auto) 16.4 L (20-40) % [place] % (Auto) 6.9 (2-11) % Eos % (Auto) 1.0 (0-4) % Baso % (Auto) 0.7 (0-2) % Lymph # (Auto) 2.2 (1.2-4.9) X10*3/uL [place] # (Auto) 0.9 (0.1-1.2) X10*3/uL Eos # (Auto) 0.1 (0.0-0.4) X10*3/uL Baso # (Auto) 0.1 (0.0-0.2) X10*3/uL Abs Immat Gran (auto) 0.03 (0.00-0.03) X10*3/uL Absolute Neuts (auto) 10.1 H (2.0-8.3) x10*3/uL Absolute Nucleated RBC 0.000 (0.0-0.012) X10*3/uL Nucleated RBC % (auto) 0.0 (0.0-0.2) /100WBC Sodium 144 (135-145) mmol/L Potassium 3.9 (3.3-5.1) mmol/L Chloride 110 H (96-108) mmol/L Carbon Dioxide 22 (22-29) mmol/L Anion Gap 16 (12-20) BUN 16 (9-16) mg/dL Creatinine 1.06 (0.5-1.4) mg/dL Estim Creat Clear Calc 90.5 Estimated GFR 54 Random Glucose 119 H (60-115) mg/dL Calcium 9.5 (8.4-10.2) mg/dL Total Bilirubin 0.3 (0.0-1.0) mg/dL AST 22 (5-31) U/L ALT 12 (0-31) U/L Alkaline Phosphatase 91 (39-117) U/L Troponin I High Sens < 2.7 D (<3.5-17.0) ng/L C-Reactive Protein < 0.10 (< or = 0.50) mg/dL Total Protein 7.1 (6.5-8.0) g/dL Albumin 3.9 (3.5-5.0) g/dL Lipase 18 (8-78) U/L Urine Color Yellow Urine Appearance Cloudy Urine pH 5.5 (5.0-9.0) Ur Specific [place] 1.025 (1.005-1.025) Urine Protein Negative (Neg-Trace) mg/dL Urine Glucose (UA) Negative (Negative) mg/dL Urine Ketones Trace (Negative) mg/dL Urine Blood Negative (Negative) Urine Nitrite Negative (Negative) Ur Leukocyte Esterase Moderate (2+) H (Negative) Urine RBC 0-2 (0-2) /HPF Urine WBC 21-50 H (0-5) /HPF Ur Squamous Epith Cells 11-20 (0-2) /HPF Urine Bacteria 1+ (None Seen) Hyaline Casts 3-5 (0-2) /LPF Urine Test NEGATIVE (NEGATIVE) Urine Opiates Screen Not Detected (Not Detect) Urine Fentanyl Screen Not Detected (Not Detect) Ur Barbiturates Screen Not Detected (Not Detect) Ur Phencyclidine Scrn Not Detected (Not Detect) Ur Amphetamines Screen Not Detected (Not Detect) U Benzodiazepines Scrn Not Detected (Not Detect) Urine Cocaine Screen Not Detected (Not Detect) U Marijuana (THC) Screen POSITIVE H (Not Detect) Influenza Type A (PCR) NEGATIVE (Negative) Influenza Type B (PCR) NEGATIVE (Negative) RSV RNA Qual (PCR) NEGATIVE (Negative) SARS-CoV-2 RNA (RT-PCR) NEGATIVE (Negative) Discharge Plan Discharge Clinical Impression: Abdominal pain, vomiting, and diarrhea Patient Disposition: Home, Self-Care Additional Instructions: Please rest and take it easy today. Your CT scan shows that you have gallstones in her gallbladder but I do not think that was the reason for your symptoms tonight. It is possible your symptoms could be related to marijuana use. I would be careful with marijuana use in the future. Please keep your current appointment and follow up with your regular doctor to discuss this episode further. Return to the emergency room if worse. Prescriptions: No Action ferrous sulfate 325 mg (65 mg iron) Tablet 325 mg PO DAILY gabapentin 300 mg Capsule 300 mg PO TID omeprazole 20 mg Capsule,Delayed Release(Dr/Ec) 20 mg PO BIDAC hydroxyzine pamoate 25 mg Capsule 25 mg PO BID PRN (Reason: Anxiety) clindamycin HCl 300 mg capsule 300 mg PO TID prazosin 2 mg capsule 2 mg PO BEDTIME simvastatin 5 mg tablet 5 mg PO BEDTIME amlodipine 5 mg tablet 5 mg PO DAILY levothyroxine 137 mcg capsule 137 mcg PO DAILY Qty: 30 6RF tramadol 50 mg tablet 50 mg PO Q12H PRN (Reason: Pain) Referrals: [facility] [Primary Care Provider] - (Abdominal pain, vomiting, diarrhea, possibly cannabis hyperemesis) Interventions: ED Discharge Assessment Last Done: 10/19/23 03:06 Discharge Date/Time: 10/19/23 03:08
[2023-10-19 03:06] VITALS: BP 131/72; PULSE 89; RESP 16; TEMP 36.8; O2SAT 99
== END 2023-10-19 03:08 | disposition home or self-care (01) ==
PROVIDERS: Emergency Provider Emergency Medicine
DX: R11.2 Nausea with vomiting, unspecified (principal); I49.8 Other specified cardiac arrhythmias; R10.30 Lower abdominal pain, unspecified; R19.7 Diarrhea, unspecified; F17.210 Nicotine dependence, cigarettes, uncomplicated; Z11.52 Encounter for screening for COVID-19; Z20.822 Contact with and (suspected) exposure to COVID-19; Z79.899 Other long term (current) drug therapy
CPT/HCPCS: 0241U; 36415; 74177; 80053; 80307; 81001; 81025; 83690; 84484; 85025; 86140; 87086; 87147; 93005; 96361; 96374; 96375; 96376; 99285; J1790; J2270; Q9967

== ENCOUNTER → 2023-10-18 23:01 | Outpatient (BNV) | payer MEDICAID, SELFPAY | PROVIDERS: Emergency Provider Emergency Medicine; Visit Provider Internal Medicine | DX: R10.9 Unspecified abdominal pain (principal) | CPT/HCPCS: 93010 ==

== ENCOUNTER 2023-10-21 12:08 | Outpatient (REF) | payer MEDICAID, SELFPAY ==
--- NOTE | ~2023-10-21 | MM_ITS ---
EXAMINATION: MM SCREENING DIGITAL BREAST TOMOSYNTHESIS, BILATERAL CLINICAL INFORMATION: Screening. Asymptomatic. COMPARISON: Mammography: This study is compared with prior exams dating back to 2021. TECHNIQUE: Digital breast tomosynthesis is performed in both the craniocaudal and mediolateral oblique views along with computer-aided detection (CAD). Synthesized 2D images are generated from the tomosynthesis. FINDINGS: There are scattered areas of fibroglandular density (ACR BI-RADS breast composition Category b). There are no significant masses, abnormal calcifications, or other abnormalities. MM/MM tomosynthesis screening BI IMPRESSION: No mammographic evidence of malignancy. ASSESSMENT: BI-RADS BI-RADS 1 - Negative RECOMMENDATION: Routine annual mammography screening. 1 year F/U This examination should not preclude the clinical evaluation of a suspicious palpable abnormality. This patient's information was entered into a reminder system with a target due date for their next mammogram.
== END 2023-10-21 12:09 | disposition home or self-care (01) ==
LOC: HO.MAMMO 12:08
PROVIDERS: PCP Nurse Practitioner Family; Visit Provider Nurse Practitioner Family
DX: Z12.31 Encounter for screening mammogram for malignant neoplasm of breast (principal)
CPT/HCPCS: 77063; 77067

== ENCOUNTER → 2023-10-21 12:15 | Outpatient (BNV) | payer MEDICAID, SELFPAY | PROVIDERS: PCP Nurse Practitioner Family; Visit Provider Radiology Diagnostic Radiology | DX: Z12.31 Encounter for screening mammogram for malignant neoplasm of breast (principal) | CPT/HCPCS: 77063; 77067 ==

== ENCOUNTER 2023-11-19 04:10 | Inpatient (IN) | payer MEDICAID, SELFPAY ==
[2023-11-19] VITALS (17 sets, daily range): BP systolic 127–230; BP diastolic 76–150; PULSE 82–109; RESP 11–40; TEMP 36.4–37.7; O2SAT 95–99; BMI 32.6; BMI 32.4
--- NOTE | 2023-11-19 | ECG_ITS ---
Test Reason : HYPERTENSION Blood Pressure : / mmHG Vent. Rate : 104 BPM Atrial Rate : 104 BPM P-R Int : 130 ms QRS Dur : 080 ms QT Int : 392 ms P-R-T Axes : 016 045 051 degrees QTc Int : 515 ms Baseline wander Sinus tachycardia Otherwise normal ECG When compared with ECG of 18-OCT-2023 23:10, Vent. rate has increased BY 39 BPM Non-specific change in ST segment in Anterior leads QT has lengthened Referred By: Generic ED Physician Electronically Signed By:ELMIRA VELASQUEZ MD
--- NOTE | ~2023-11-19 | FL_ITS ---
Fluoroscopic lumbar puncture Indication: Altered mental status. Leukocytosis Risks and benefits and possible complications were discussed with the patient's daughter and informed consent was obtained. Patient was placed in the left lateral decubitus position on the fluoroscopy table. The patient began to vomit. After 10 minutes of waiting, the patient was still vomiting/retching and unable to remain on the exam room table safely. The procedure was, therefore, aborted. Total fluoroscopy time: 0.1 min FL/FL guided lumbar puncture LP Impression: Fluoroscopic lumbar puncture was not attempted due to patient vomiting and unable to remain on the exam are table safely. This procedure was performed by Wiley Kamara PA-C and supervised by Dr. Moralez.
--- NOTE | ~2023-11-19 | CT_ITS ---
EXAMINATION: CT HEAD WITHOUT CONTRAST CLINICAL INFORMATION: Altered mental status COMPARISON: None available. TECHNIQUE: Contiguous axial imaging was performed from the skull base to vertex without intravenous administration of contrast. This CT examination was performed using dose optimization techniques as appropriate, variously including the following: *Automated exposure control *Adjustment of mA and/or kV according to patient size (this includes techniques or standardized protocols for targeted exams where dose is matched to indication/reason for exam; i.e. extremities or head) *Use of iterative reconstruction technique DLP: 586 mGy-cm FINDINGS: Intracranial structures are normal in appearance. Henry-white matter differentiation is preserved. No evolving infarct, mass lesion, mass effect, midline shift, hemorrhage or extra-axial fluid collections identified. Intraorbital structures are unremarkable. Sinuses and mastoids are unremarkable. Bony structures are intact. Soft tissues are within normal limits. CT/CT head/brain wo IV con IMPRESSION: No acute intracranial pathology.
--- NOTE | ~2023-11-19 | CT_ITS ---
EXAMINATION: CT ABDOMEN AND PELVIS WITHOUT CONTRAST CLINICAL INFORMATION: Pain. COMPARISON: 10/19/2023 TECHNIQUE: Multidetector volumetric imaging was performed from the superior aspect of the liver through the pubic symphysis. Sagittal and coronal reformatted images were obtained on the technologist's workstation. This CT examination was performed using dose optimization techniques as appropriate, variously including the following: *Automated exposure control *Adjustment of mA and/or kV according to patient size (this includes techniques or standardized protocols for targeted exams where dose is matched to indication/reason for exam; i.e. extremities or head) *Use of iterative reconstruction technique DLP: 736 mGy-cm FINDINGS: LUNG BASES: There is minimal loss subsegmental atelectasis at the right lung base. LIVER, GALLBLADDER, AND BILIARY TREE: The liver is normal in size, shape, and attenuation. No focal hepatic lesion or biliary ductal dilatation is present. Single well-defined gallstone is again noted measuring 1.7 cm PANCREAS: There is mild to moderate peripancreatic infiltration/fluid not seen previously. SPLEEN: Unremarkable. ADRENAL GLANDS: Unremarkable. KIDNEYS AND URETERS: The kidneys are normal in size, shape, and attenuation. No hydronephrosis, hydroureter, or calculi seen. No perinephric stranding. BLADDER: Unremarkable. GASTROINTESTINAL TRACT: There are diverticula of the descending and the sigmoid colon without definitive evidence for diverticulitis. There is nonspecific pericolonic stranding along the descending colon. ABDOMINAL WALL: There is a left mid abdominal wall hernia containing fat similar to previous. LYMPH NODES: Normal. VASCULAR: Unremarkable. PELVIC VISCERA: Unremarkable. OSSEOUS STRUCTURES: There is diffuse thoracolumbar disc degenerative change. CT/CT abdomen pelvis wo IV con IMPRESSION: 1. There is mild to moderate peripancreatic infiltration/fluid not seen previously. Findings are consistent with pancreatitis. 2. There is nonspecific pericolonic stranding along the descending colon. There are diverticula of the descending and sigmoid colon without definitive evidence for diverticulitis. 3. Cholelithiasis. 4. There is a left mid abdominal wall hernia containing fat similar to previous. Fleischner guidelines were followed.
--- NOTE | ~2023-11-19 | FL_ITS ---
FLUOROSCOPIC GUIDED LUMBAR PUNCTURE INDICATION: Altered mental status Risks and benefits and possible complications were discussed with the patient's daughter and informed consent was obtained. Patient was placed prone on the fluoroscopy table. The back was prepped and draped in routine sterile fashion. Betadine was used as a skin antiseptic. Utilizing fluoroscopic guidance, the L4-5 intralaminar space was accessed with a 22 gauge quinkie spinal needle and clear CSF fluid obtained. Opening pressure was 19 cm H2O in the prone position. 10 cc of fluid was sent for analysis. The needle was removed without immediate complications. Total fluoroscopy time: 0.2 min FL/FL guided lumbar puncture LP IMPRESSION: Successful fluoroscopic guided lumbar puncture This procedure was performed by Wiley Kamara PA-C and supervised by Dr. Moralez.
--- NOTE | ~2023-11-19 | CT_ITS ---
EXAMINATION: CT ABDOMEN AND PELVIS WITH CONTRAST CLINICAL INFORMATION: Abdominal pain without lipase or alkaline phosphatase elevation COMPARISON: CT abdomen pelvis 11/19/[address] scan of the abdomen and pelvis 2 hours earlier: There is mild to moderate peripancreatic infiltration/fluid not seen previously. Findings are consistent with pancreatitis. There is nonspecific pericolonic stranding along the descending colon. There are diverticula of the descending and sigmoid colon without definitive evidence for diverticulitis. CT abdomen and pelvis 10/19/2023 TECHNIQUE: Multidetector volumetric images were obtained from the superior aspect of the liver through the pubic symphysis following administration 85 mL of Omnipaque 350 intravenous contrast. Sagittal and coronal reformatted images were obtained on the technologist's workstation. Oral contrast: No This CT examination was performed using dose optimization techniques as appropriate, variously including the following: *Automated exposure control *Adjustment of mA and/or kV according to patient size (this includes techniques or standardized protocols for targeted exams where dose is matched to indication/reason for exam; i.e. extremities or head) *Use of iterative reconstruction technique Significant motion artifact degrades the imaging DLP: 1109 mGy-cm FINDINGS: LUNG BASES: The visualized lung bases are unremarkable. LIVER, GALLBLADDER, AND BILIARY TREE: The liver is normal in size, shape, and attenuation. No focal hepatic lesion or biliary ductal dilatation is present. The gallbladder contains a large 2 cm gallstone but is otherwise unremarkable with no evidence of gallbladder wall thickening, or obvious pericholecystic inflammatory changes. PANCREAS: Again seen are changes of acute pancreatitis with peripancreatic edema. No drainable fluid collections are seen. No pancreatic duct dilatation is seen. Enhancement of the pancreatic parenchyma is uniform with no suggestion of pancreatic necrosis. SPLEEN: Unremarkable. ADRENAL GLANDS: Unremarkable. KIDNEYS AND URETERS: The kidneys are normal in size, shape, and attenuation. No hydronephrosis, hydroureter, or calculi seen. No perinephric stranding. A benign left upper pole 1.6 cm Bosniak class I renal cyst is noted which requires no additional imaging or follow up. No solid renal masses are seen. BLADDER: Unremarkable. GASTROINTESTINAL TRACT: Again seen are colonic diverticula scattered throughout the colon. In the mid and distal descending colon, there is some mild fat stranding seen around the colon. This finding is unchanged when compared to the study from earlier today and was not present on the prior study from 10/19/2023. The small and large bowel are unremarkable. The appendix is unremarkable. ABDOMINAL WALL: Tiny periumbilical hernia seen containing only fat, just above this level is a left of midline epigastric hernia containing only fat. LYMPH NODES: Normal. VASCULAR: Unremarkable. PELVIC VISCERA: The uterus and adnexa are unremarkable. OSSEOUS STRUCTURES: A left total hip prosthesis is again noted. Degenerative changes are present throughout the spine. No bony destructive lesions are seen. CT/CT abdomen pelvis w IV con IMPRESSION: 1. Acute pancreatitis without evidence of pancreatic necrosis or drainable fluid collections. It is possible that some of the changes in the pancreas could be secondary to adjacent colonic diverticulitis (see below). 2. Colonic diverticulosis with some mild fat stranding around the mid and distal descending colon. This is unchanged when compared to the study from earlier today and was not present on the prior study from 10/19/2023. Findings are suggestive of mild diverticulitis with possible changes around the pancreas associated with this (see above), especially associated with a normal lipase. 3. Cholelithiasis without cholecystitis. 4. Other incidental findings as described above. Fleischner guidelines were followed. This critical result was discussed with Dr. Karley Culp at 8:40 AM on the morning of the exam and it was ascertained that the content and urgency of the report was understood at the time of direct communication.
[2023-11-19] MEDS: 0.9 % Sodium Chloride 1,000 ML 999 ML IV ×2 (04:26→05:49)
[2023-11-19] MEDS: ondansetron HCL 4 MG/2 ML VIAL IVPUSH ×4 (04:29→21:02)
[2023-11-19] MEDS: Labetalol HCL 100 MG/20 ML VIAL IVPUSH (04:31)
[2023-11-19 04:33] LABS: Basophils Absolute Auto 0.1 X10*3/uL (0.0-0.2); Basophils Percent Auto 0.2 % (0-2); Eosinophils Absolute Auto 0.1 X10*3/uL (0.0-0.4); Eosinophils Percent Auto 0.3 % (0-4); Hematocrit 44.5 % (37.0-47.0); Hemoglobin 15.1 g/dl (12.0-16.0); Imm Gran Pct Auto 0.7 % (0.0-0.4); Lymphocytes Absolute Auto 2.1 X10*3/uL (1.2-4.9); Lymphocytes Percent Auto 7.3 % (20-40); MANUAL DIFF FLAG SCAN; Mean Corpuscular HGB Conc 33.9 g/dl (31.0-35.0); Mean Corpuscular Hemoglobin 24.4 pg (27.0-33.0); Mean Corpuscular Volume 71.8 fL (80.0-98.0); Mean Platelet Volume 11.3 fL (9.4-12.3); Monocytes Absolute Auto 1.7 X10*3/uL (0.1-1.2); Monocytes Percent Auto 5.9 % (2-11); Neutrophils Absolute Auto 24.3 x10*3/uL (2.0-8.3); Neutrophils Percent Auto 85.6 % (45-73); Platelet Count 491 X10*3/uL (160-400); Red Cell Distribution Width 16.7 % (11.0-16.0); SCAN SMEAR FLAG 1; White Blood Count 28.4 X10*3/uL (4.8-10.8)
[2023-11-19] MEDS: fentaNYL citrate/PF 100 MCG/2 ML VIAL 25 MCG IVPUSH (04:33)
[2023-11-19 04:40] LABS: Venous Blood Gas Refer to POC result
--- NOTE | 2023-11-19 04:43 | ED.AMS ---
HPI - Altered Mental Status General Chief Complaint: Abdominal Pain Stated Complaint: AMS ,Abdominal pain Time Seen by Provider: 11/19/23 04:17 Source: patient Mode of arrival: EMS History of Present Illness HPI narrative: 53-year-old female who has complaints about mid abdominal pain is brought in by EMS for evaluation of abdominal pain and vomiting, according to EMS patient appeared to be confused when asked specific questions, fast ED was negative, additional information obtained from the significant other states that she seems to be having these issues after eating spicy food. Patient continues to yell out help me . It is difficult to redirect the patient but she does appear to be oriented. Related Data Home Medications ?Medication ?Instructions ?Recorded ?Confirmed amlodipine 5 mg tablet 5 mg PO DAILY 11/08/20 10/04/23 prazosin 2 mg capsule 2 mg PO BEDTIME 11/08/20 10/04/23 simvastatin 5 mg tablet 5 mg PO BEDTIME 11/08/20 10/04/23 ferrous sulfate 325 mg (65 mg 325 mg PO DAILY 10/17/21 10/04/23 iron) tablet gabapentin 300 mg capsule 300 mg PO TID 10/17/21 10/04/23 hydroxyzine pamoate 25 mg capsule 25 mg PO BID PRN Anxiety 10/17/21 10/04/23 omeprazole 20 mg capsule,delayed 20 mg PO BIDAC 10/17/21 10/04/23 release tramadol 50 mg tablet 50 mg PO Q12H PRN Pain 11/16/21 10/04/23 clindamycin HCl 300 mg capsule 300 mg PO TID 06/14/23 10/04/23 Previous Rx's ?Medication ?Instructions ?Recorded levothyroxine 137 mcg capsule 137 mcg PO DAILY #30 caps 11/08/20 Allergies Allergy/AdvReac Type Severity Reaction Status Date / Time Penicillins Allergy Severe Anaphylaxis Verified 11/19/23 04:43 Review of Systems Review of Systems: Please see the discussion above [facility] Past Medical History Source: nursing notes reviewed Medical History Foreign body (FB) in soft tissue Personal history of nicotine dependence Hyperlipidemia Nausea & vomiting Hypochromic microcytic anemia Obesity due to excess calories Hypothyroidism Osteoarthritis Essential hypertension Surgical History History of hernia surgery History of shoulder surgery History of tonsillectomy History of colonoscopy History of esophagogastroduodenoscopy (EGD) History of carpal tunnel release Family History Family History Father Lung cancer Mother Congestive heart failure Type 2 diabetes mellitus Social History Social History Household Members: None Housing: Other Housing Other:: sober community Do you presently have visiting nurse or other home services: No Alcohol intake: former Patient Tobacco Use Status: Current everyday Tobacco user Tobacco use type: Cigarette Years Smoked: 20 Substance Use Type: Marijuana Advance Directives: No Do you have a plan to hurt others: No Plan service: No Current occupational status: employed Physical Exam ED Vital Signs: Vital Signs - 24 hr 11/19/23 04:31 11/19/23 04:41 11/19/23 04:51 Temperature Pulse Rate 105 H 105 H 89 Respiratory Rate 40 H 19 Blood Pressure 203/121 H 203/121 H 184/117 H Pulse Oximetry 97 Oxygen Delivery Method Room Air 11/19/23 05:50 11/19/23 06:48 11/19/23 07:00 Temperature 98.8 F Pulse Rate 86 94 109 H Respiratory Rate 16 29 H Blood Pressure 196/125 H 191/136 H 183/126 H Pulse Oximetry 98 95 Oxygen Delivery Method Room Air Room Air BMI result Body Mass Index 32.6 VITAL SIGNS: Reviewed. GENERAL: Well developed, well nourished, in no acute distress. HEAD: Normocephalic/atraumatic EYES: PERRLA, EOMI EARS: Ext canals without abnormality NOSE: Nares patent bilateral OROPHARYNX: no oral lesions noted, posterior pharynx clear NECK: Supple, no adenopathy LUNGS: Normal breath sounds. No adventitious sounds or accessory muscle use. SpO2<97> CARDIOVASCULAR: Regular rate and rhythm without noted murmurs ABDOMEN: Soft, diffusely tender to palpation which is maximal at mid abdomen, non-distended with bowel sounds. MUSCULOSKELETAL: No tenderness, deformities, or effusions noted on gross inspection. EXTREMITIES: No cyanosis, clubbing or edema. SKIN: Inspection of the skin reveals no rashes NEUROLOGIC: Alert and oriented x 2. Strength and sensation to light touch were grossly intact x 4. Medications Administered Generic Name Dose Route Start Last Admin Trade Name Freq PRN Reason Stop Dose Admin Potassium Chloride 10 meq in 100 mls @ 100 mls/hr 11/19/23 05:00 11/19/23 06:10 Potassium Chloride/H20 IV 11/19/23 08:59 100 mls/hr Q1H ITZEL Administration Sodium Chloride 1,000 mls @ 250 mls/hr 11/19/23 06:00 11/19/23 06:35 Ns IVCONT 11/19/23 09:59 250 mls/hr .Q4H ITZEL Administration Discontinued Medications Generic Name Dose Route Start Last Admin Trade Name Freq PRN Reason Stop Dose Admin Fentanyl 25 mcg 11/19/23 04:31 11/19/23 04:33 Fentanyl Citrate/Pf 100 Mcg/2 Ml Vial IVPUSH 11/19/23 04:32 25 mcg ONCE ONE Administration Protocol Hydralazine HCl 5 mg 11/19/23 05:48 11/19/23 05:53 Hydralazine Hcl 20 Mg/Ml Vial IVPUSH 11/19/23 05:49 5 mg ONCE ONE Administration Protocol Hydromorphone HCl 0.5 mg 11/19/23 05:35 11/19/23 05:42 Hydromorphone Hcl 0.5 Mg/0.5 Ml Syringe IVPUSH 11/19/23 05:36 0.5 mg ONCE ONE Administration Protocol Sodium Chloride 1,000 mls @ 999 mls/hr 11/19/23 04:30 11/19/23 05:27 Ns IV 11/19/23 05:30 Infused .Q1H1M ITZEL Infusion Magnesium Sulfate 2 gm in 50 mls @ 150 mls/hr 11/19/23 04:44 11/19/23 05:14 Magnesium Sulfate/H2o IV 11/19/23 05:03 Infused ONCE ONE Infusion Cefepime HCl 2 gm/ Sodium 50 mls @ 100 mls/hr 11/19/23 05:03 11/19/23 06:17 Chloride IV 11/19/23 05:32 Infused ONCE ONE Infusion Sodium Chloride 1,000 mls @ 999 mls/hr 11/19/23 05:45 11/19/23 05:49 Ns IV 11/19/23 06:45 999 mls/hr .Q1H1M ITZEL Administration Iohexol 85 ml 11/19/23 06:40 11/19/23 06:41 Iohexol 350 Mg/Ml 100 Ml Infus..Btl IV 11/19/23 06:41 85 ml ONCE ONE Administration Labetalol HCl 5 mg 11/19/23 04:25 11/19/23 04:31 Labetalol Hcl 100 Mg/20 Ml Vial IVPUSH 11/19/23 04:26 5 mg ONCE ONE Administration Labetalol HCl 10 mg 11/19/23 06:56 11/19/23 07:00 Labetalol Hcl 100 Mg/20 Ml Vial IVPUSH 11/19/23 06:57 10 mg ONCE ONE Administration Ondansetron HCl 4 mg 11/19/23 04:18 11/19/23 04:29 Ondansetron Hcl 4 Mg/2 Ml Vial IVPUSH 11/19/23 04:19 4 mg ONCE ONE Administration Ondansetron HCl 4 mg 11/19/23 05:36 11/19/23 05:40 Ondansetron Hcl 4 Mg/2 Ml Vial IVPUSH 11/19/23 05:37 4 mg ONCE ONE Administration Medical Decision Making Medical Decision Making [facility] Narrative: 0415: 53-year-old female with history and clinical presentation after review of last visit in September when patient had a GI bleed and raising initial concerns for possible perforation, metabolic encephalopathy, drug intoxication, I have no concerns for neurologic deficits. Patient also noted to be INTERVENTION: 5 mg labetalol for significant blood pressure elevation as well as 25 mcg of fentanyl for pain control prior to CT scan. EKG demonstrates QTC prolonged raising concern for possible accidental overdose of prescription medications, will administer 2 g of magnesium sulfate. Reviewed investigations and hematologic indices demonstrates leukocytosis of 28.4 without anemia and there is a slight elevation of platelets that I suspect are consistent with acute phase reactants, patient receiving fluids as well as antibiotics. Blood gas demonstrates respiratory alkalosis, pH-7.62, likely secondary to hyperventilation as pCO2 -22. Chemistry indices as mentioned above demonstrate potassium-2.5 without ASTRID but noted worsening creatinine level. LFTs demonstrate derangement with T bili/AST/ALT all being elevated but alkaline phosphatase remains within normal limits which is not suggestive of a choledocholithiasis presentation and in addition lipase is noted to be within normal limits. Beta hydroxybutyrate is 0.38 which is likely reflective of dehydrated state. Viral testing is negative for COVID-19/influenza. Ethanol-undetectable. UDS only positive for marijuana. 0440: Findings on CT scan concerning for possible perforation as there is extensive stranding along stomach and pancreatic area with stable appearance of gallbladder and normal lipase levels. 0529: Facial CT read not demonstrating evidence of perforation but mild to moderate peripancreatic infiltration as well as fluid with nonspecific pericolonic stranding and cholelithiasis. 0530: Patient receiving additional IV fluids, antiemetics, pain medications. Patient noted to be hypertensive and will receive 5 mg of hydralazine in addition to her 0.5 mg of Dilaudid. CPK and lipid panel containing triglyceride levels are pending. I discussed with inpatient hospitalist who accepts admission. Salicylate/acetaminophen levels are undetectable. I decided to follow up with a CT abdomen/pelvis with IV contrast. Signed out to Dr Culp. Differential Diagnosis Differential Diagnoses: The differential diagnosis associated with the presentation includes Please see the discussion above Admission/Observation Consideration of admission/observation: Escalation of care including admission/observation considered Please see the discussion above Consult Healthcare Provider Management of the patient was discussed with: Hospitalist Please see the discussion above Lab Data MDM Lab Attestation statement: I reviewed the patient's lab results. Please see the discussion above 11/19/23 04:25 11/19/23 04:25 Labs: Lab Results 11/19/23 11/19/23 11/19/23 Range/Units 04:25 04:37 05:15 WBC 28.4 H (4.8-10.8) X10*3/uL RBC 6.20 H D (4.20-5.50) X10*6/uL Hgb 15.1 D (12.0-16.0) g/dl Hct 44.5 D (37.0-47.0) % MCV 71.8 L (80.0-98.0) fL MCH 24.4 L (27.0-33.0) pg MCHC 33.9 (31.0-35.0) g/dl RDW 16.7 H (11.0-16.0) % Plt Count 491 H D (160-400) X10*3/uL MPV 11.3 (9.4-12.3) fL Immature Gran % (Auto) 0.7 H (0.0-0.4) % Neut % (Auto) 85.6 H (45-73) % Lymph % (Auto) 7.3 L (20-40) % [place] % (Auto) 5.9 (2-11) % Eos % (Auto) 0.3 (0-4) % Baso % (Auto) 0.2 (0-2) % Lymph # (Auto) 2.1 (1.2-4.9) X10*3/uL [place] # (Auto) 1.7 H (0.1-1.2) X10*3/uL Eos # (Auto) 0.1 (0.0-0.4) X10*3/uL Baso # (Auto) 0.1 (0.0-0.2) X10*3/uL Abs Immat Gran (auto) 0.20 H (0.00-0.03) X10*3/uL Absolute Neuts (auto) 24.3 H (2.0-8.3) x10*3/uL Absolute Nucleated RBC 0.000 (0.0-0.012) X10*3/uL Nucleated RBC % (auto) 0.0 (0.0-0.2) /100WBC Smear Tech's Comments VERIFIED VBG pH 7.62 H* (7.32-7.43) VBG pCO2 22 mmHg VBG pO2 37 mmHg VBG HCO3 23 (22-26) mmol/L VBG O2 Saturation 68.0 % VBG Base Excess 4.6 mmol/L Sodium 136 (135-145) mmol/L Potassium 2.5 L* D (3.3-5.1) mmol/L Chloride 99 (96-108) mmol/L Carbon Dioxide 21 L (22-29) mmol/L Anion Gap 19 (12-20) BUN 25 H (9-16) mg/dL Creatinine 1.34 (0.5-1.4) mg/dL Estim Creat Clear Calc 54.1 Estimated GFR 41 Random Glucose 186 H (60-115) mg/dL Lactic Acid (0.5-2.0) mmol/L Calcium 10.2 D (8.4-10.2) mg/dL Magnesium 1.6 (1.6-2.6) mg/dL Total Bilirubin 1.1 H (0.0-1.0) mg/dL AST 99 H (5-31) U/L ALT 53 H (0-31) U/L Alkaline Phosphatase 98 (39-117) U/L Total Creatine Kinase 2171 H (26-140) U/L Total Protein 8.2 H (6.5-8.0) g/dL Albumin 4.6 (3.5-5.0) g/dL Triglycerides 141 (<150) mg/dL Cholesterol 199 (<200) mg/dL LDL Cholesterol, Calc 106 H (<100) mg/dL HDL Cholesterol 65 (>40) mg/dL Lipase 71 (8-78) U/L Beta-Hydroxybutyrate 0.38 H (0.02-0.27) mmol/L Urine Color Yellow Urine Appearance Clear Urine pH 8.0 (5.0-9.0) Ur Specific [place] 1.015 (1.005-1.025) Urine Protein 100 (2+) H (Neg-Trace) mg/dL Urine Glucose (UA) 250 H (Negative) mg/dL Urine Ketones 15 (Negative) mg/dL Urine Blood Moderate (2+) H (Negative) Urine Nitrite Negative (Negative) Ur Leukocyte Esterase Negative (Negative) Urine RBC 3-5 H (0-2) /HPF Urine WBC 0-5 (0-5) /HPF Ur Squamous Epith Cells 0-2 (0-2) /HPF Urine Bacteria None Seen (None Seen) Hyaline Casts 0-2 (0-2) /LPF Salicylates (15-30) mg/dL Urine Opiates Screen Not Detected (Not Detect) Ur Buprenorphine Scrn Not Detected (Not Detect) ng/mL Ur Oxycodone Screen Not Detected (Not Detect) ng/mL Urine Methadone Screen Not Detected (Not Detect) ng/mL Urine Fentanyl Screen Not Detected (Not Detect) Acetaminophen (<30) mcg/mL Ur Barbiturates Screen Not Detected (Not Detect) Ur Phencyclidine Scrn Not Detected (Not Detect) Ur Amphetamines Screen Not Detected (Not Detect) U Benzodiazepines Scrn Not Detected (Not Detect) Urine Cocaine Screen Not Detected (Not Detect) U Marijuana (THC) Screen POSITIVE H (Not Detect) Ethyl Alcohol < 10 mg/dL COVID-19 (REGINALDO) Negative (Negative) COVID-19 Clin Com See Note Influenza Type A (BRODY) Negative (Negative) Influenza Type B (BRODY) Negative (Negative) Influenza A & B Note See Note 11/19/23 Range/Units 05:33 WBC (4.8-10.8) X10*3/uL RBC (4.20-5.50) X10*6/uL Hgb (12.0-16.0) g/dl Hct (37.0-47.0) % MCV (80.0-98.0) fL MCH (27.0-33.0) pg MCHC (31.0-35.0) g/dl RDW (11.0-16.0) % Plt Count (160-400) X10*3/uL MPV (9.4-12.3) fL Immature Gran % (Auto) (0.0-0.4) % Neut % (Auto) (45-73) % Lymph % (Auto) (20-40) % [place] % (Auto) (2-11) % Eos % (Auto) (0-4) % Baso % (Auto) (0-2) % Lymph # (Auto) (1.2-4.9) X10*3/uL [place] # (Auto) (0.1-1.2) X10*3/uL Eos # (Auto) (0.0-0.4) X10*3/uL Baso # (Auto) (0.0-0.2) X10*3/uL Abs Immat Gran (auto) (0.00-0.03) X10*3/uL Absolute Neuts (auto) (2.0-8.3) x10*3/uL Absolute Nucleated RBC (0.0-0.012) X10*3/uL Nucleated RBC % (auto) (0.0-0.2) /100WBC Smear Tech's Comments VBG pH (7.32-7.43) VBG pCO2 mmHg VBG pO2 mmHg VBG HCO3 (22-26) mmol/L VBG O2 Saturation % VBG Base Excess mmol/L Sodium (135-145) mmol/L Potassium (3.3-5.1) mmol/L Chloride (96-108) mmol/L Carbon Dioxide (22-29) mmol/L Anion Gap (12-20) BUN (9-16) mg/dL Creatinine (0.5-1.4) mg/dL Estim Creat Clear Calc Estimated GFR Random Glucose (60-115) mg/dL Lactic Acid 2.6 H* (0.5-2.0) mmol/L Calcium (8.4-10.2) mg/dL Magnesium (1.6-2.6) mg/dL Total Bilirubin (0.0-1.0) mg/dL AST (5-31) U/L ALT (0-31) U/L Alkaline Phosphatase (39-117) U/L Total Creatine Kinase (26-140) U/L Total Protein (6.5-8.0) g/dL Albumin (3.5-5.0) g/dL Triglycerides (<150) mg/dL Cholesterol (<200) mg/dL LDL Cholesterol, Calc (<100) mg/dL HDL Cholesterol (>40) mg/dL Lipase (8-78) U/L Beta-Hydroxybutyrate (0.02-0.27) mmol/L Urine Color Urine Appearance Urine pH (5.0-9.0) Ur Specific [place] (1.005-1.025) Urine Protein (Neg-Trace) mg/dL Urine Glucose (UA) (Negative) mg/dL Urine Ketones (Negative) mg/dL Urine Blood (Negative) Urine Nitrite (Negative) Ur Leukocyte Esterase (Negative) Urine RBC (0-2) /HPF Urine WBC (0-5) /HPF Ur Squamous Epith Cells (0-2) /HPF Urine Bacteria (None Seen) Hyaline Casts (0-2) /LPF Salicylates < 5.0 L (15-30) mg/dL Urine Opiates Screen (Not Detect) Ur Buprenorphine Scrn (Not Detect) ng/mL Ur Oxycodone Screen (Not Detect) ng/mL Urine Methadone Screen (Not Detect) ng/mL Urine Fentanyl Screen (Not Detect) Acetaminophen < 3 (<30) mcg/mL Ur Barbiturates Screen (Not Detect) Ur Phencyclidine Scrn (Not Detect) Ur Amphetamines Screen (Not Detect) U Benzodiazepines Scrn (Not Detect) Urine Cocaine Screen (Not Detect) U Marijuana (THC) Screen (Not Detect) Ethyl Alcohol mg/dL COVID-19 (REGINALDO) (Negative) COVID-19 Clin Com Influenza Type A (BRODY) (Negative) Influenza Type B (BRODY) (Negative) Influenza A & B Note Independent Interpretation I performed an independent interpretation of an: EKG Interpretation: Sinus tachycardia, HR-104, no STEMI, DC/QRS is within normal limits but QTC-515. Radiology Impression Discussion of test interpretation with radiology: I have reviewed the radiologist's reading. Radiologist Impression: Please see the discussion above External Record Review External record reviewed: Outpatient record, Prior outpatient labs and Prior outpatient radiology Chronic Conditions Patient?s care impacted by: Hypertension Critical Care Time Critical Care Time Critical Care Time: Yes Total Critical Care Time: 90 Attestation: I personally attest to this time spent taking care of the patient. Discharge Plan Discharge Clinical Impression: Acute pancreatitis, Dehydration, Hypokalemia, Rhabdomyolysis Patient Disposition: Admitted As Inpatient Print Language: Bulgarian
[2023-11-19 04:45] LABS: VBG Base Excess 4.6 mmol/L; VBG HCO3 23 mmol/L (22-26); VBG pCO2 22 mmHg; VBG pH 7.62 (7.32-7.43); VBG pO2 37 mmHg
[2023-11-19 04:45] LABS: COVID-19 Test Negative (Negative); IDNOW Serial# 08D9AD1C; IDNOW Serial# 152EDE1D; Influenza A Negative (Negative); Influenza B2 Negative (Negative)
[2023-11-19 04:49] LABS: Beta-Hydroxybutyrate 0.38 mmol/L (0.02-0.27)
[2023-11-19 04:50] LABS: Ethanol < 10 mg/dL; SLIDE REVIEW VERIFIED
[2023-11-19 04:51] LABS: Alanine Aminotransferase 53 U/L (0-31); Albumin Level 4.6 g/dL (3.5-5.0); Alkaline Phosphatase 98 U/L (39-117); Anion Gap 19 (12-20); Aspartate Amino Transferase 99 U/L (5-31); Bilirubin Total 1.1 mg/dL (0.0-1.0); Blood Urea Nitrogen 25 mg/dL (9-16); Calcium 10.2 mg/dL (8.4-10.2); Carbon Dioxide 21 mmol/L (22-29); Chloride 99 mmol/L (96-108); Creatinine Clr Calc Pharmacy 54.1; Estimated Glomerular Filt Rate 41; Glucose Random 186 mg/dL (60-115); Lipase 71 U/L (8-78); Magnesium 1.6 mg/dL (1.6-2.6); Potassium 2.5 mmol/L (3.3-5.1); Sodium 136 mmol/L (135-145); Total Protein 8.2 g/dL (6.5-8.0)
[2023-11-19] MEDS: Magnesium Sulfate/H2O 2 GM/50 ML PIGGYBACK IV (04:54)
[2023-11-19] MEDS: Potassium Chloride/H20 10 MEQ/100 ML PIGGYBACK 100 MEQ IV ×6 (05:20→19:04)
[2023-11-19 05:26] LABS: Appearance Urine Clear; Color Urine Yellow; Glucose Urine UA 250 mg/dL (Negative); Leukocyte Esterase Urine Negative (Negative); Nitrite Urine Negative (Negative); Specific Gravity - Urine 1.015 (1.005-1.025); UMIC TRIGGER UACC YES; Urine Blood Moderate (2+) (Negative); Urine Ketones 15 mg/dL (Negative); Urine Protein 100 (2+) mg/dL (Neg-Trace)
[2023-11-19 05:39] LABS: Amphetamine Screen Urine Not Detected (Not Detect); Bacteria Urine None Seen (None Seen); Barbiturates, Urine Not Detected (Not Detect); Benzodiazepines Screen Urine Not Detected (Not Detect); Buprenorphine Scr Not Detected (Not Detect); Cannabinoid Screen Urine POSITIVE (Not Detect); Cocaine Screen Urine Not Detected (Not Detect); Fentanyl, urine Not Detected (Not Detect); Hyaline Casts Urine 0-2 /LPF (0-2); Methadone Screen, Urine Not Detected (Not Detect); Opiate Screen Urine Not Detected (Not Detect); Oxycodone Screen Urine Not Detected (Not Detect); Phencyclidine Screen Urine Not Detected (Not Detect); Squamous Epithelial Cell Urine 0-2 /HPF (0-2); WBC Urine 0-5 /HPF (0-5)
[2023-11-19] MEDS: HYDROmorphone HCl 0.5 MG/0.5 ML SYRINGE IVPUSH ×3 (05:42→21:03)
[2023-11-19] MEDS: cefEPime HCl 2 GM in 0.9 % Sodium Chloride 50 ML IV (05:45)
[2023-11-19 05:52] LABS: Cholesterol 199 mg/dL (<200); HDL Cholesterol 65 mg/dL (>40); LDL Cholesterol Calculated 106 mg/dL (<100); Triglycerides 141 mg/dL (<150)
[2023-11-19] MEDS: hydrALAZINE HCl 20 MG/ML VIAL 5 MG IVPUSH (05:53)
[2023-11-19 05:55] LABS: Lactic Acid 2.6 mmol/L (0.5-2.0)
[2023-11-19 05:58] LABS: Acetaminophen LAB < 3 mcg/mL (<30); Salicylate < 5.0 mg/dL (15-30)
[2023-11-19] MEDS: 0.9 % Sodium Chloride 1,000 ML 250 ML IVCONT (06:35)
[2023-11-19] MEDS: iohexoL 350 MG/ML 100 ML INFUS..BTL 85 ML IV (06:41)
--- NOTE | 2023-11-19 06:49 | PC.NURSE ---
Pt assisted to use bedside commode.
[2023-11-19] MEDS: Labetalol HCL 100 MG/20 ML VIAL 10 MG IVPUSH (07:00)
[2023-11-19] MEDS: LORazepam 2 MG/ML VIAL IVPUSH (07:06)
--- NOTE | 2023-11-19 07:15 | PC.NURSE ---
Resumed care of patient at 0700, patient given 10mg of labetolol per mar, Pt keeps repeating im sick intermit stating things that are not involved in the conversation. Pt given IV MD malcom placed orders for Head CT pt redressed and repositioned in bed.
[2023-11-19 07:37] LABS: Reflex Lactate? Lactic Acid Added
--- NOTE | 2023-11-19 07:44 | PC.NURSE ---
Pt brought to CT at this time, pt taken off monitor for scan
--- NOTE | 2023-11-19 08:27 | PC.NURSE ---
Pt noted to be more relaxed at this time, mental status is still waxing and weening as pt attempted to sign belongings list with finger vs pen, but pt she is still able to note name, and date
[2023-11-19 08:36] LABS: ~Lactic Acid-LAB USE ONLY 1.4 mmol/L (0.5-2.0)
[2023-11-19 09:22] LABS: TSH reflex Free T4 0.05 uIU/mL (0.32-4.0)
[2023-11-19] MEDS: Pantoprazole Sodium 40 MG/10 ML VIAL IVPUSH (09:27)
[2023-11-19] MEDS: LORazepam 2 MG/ML VIAL 1 MG IVPUSH (09:28)
--- NOTE | 2023-11-19 10:44 | PM.IMHP ---
History of Present Illness Date of Service: 11/19/23 Attending physician on admission: Cezar Dunaway Chief Complaint: ams 53 year old female with history of htn, hypothyroidism, chronic hypochromic microcytic anemia, hld, hx of schatzki's ring, diverticular disease presented to the ED via EMS after being found confused at home. On exam, pt is notably confused oriented to self only and speaking nonsensically but answers some simple questions appropriately. Per nursing and report pt has been reporting abd pain with nausea and vomiting x several days with decreased PO intake. Pt found to be confused early this morning and called EMS. On arrival, notably aggitated, tachycardic to 105 and tachypneic to 40. She was hypertensive to 203/121 with improvement to 154/106 on admissin following administration of IV labetalol and hydralazine. No fevers or hypoxia. She has a leukocytosis 28.4, H/H above baseline at 15.1/44.5% suspect some degree of hemoconcentration. Renal function consistent with baseline. Lytes significant for K 2.5, O2 21. Initial lactic acid 2.6, repeat 1.4. Total bilirubin 1.1, AST 99, ALT 53. Total CK 2171. Triglycerides 141. Beta hydroxybutyrate 0.38. TSH 0.05, free T4 pending. Lipase 71. Urinalysis significant for 2+ blood, 2+ protein, glucose, otherwise unremarkable. No evidence of UTI. Urine tox screen positive only for THC otherwise unremarkable. Ethyl alcohol level undetectable. Negative for COVID-19, influenza. Head CT negative for any acute intracranial abnormality. CT abdomen/pelvis with IV contrast shows acute pancreatitis without evidence of pancreatic necrosis or drainable fluid collections possible that some of the changes in the pancreas could be secondary to adjacent colonic diverticulitis. Diverticulitis noted with some mild fat stranding around the mid and distal descending colon. There is cholelithiasis without cholecystitis. In the ED, has received a total of 15 mg IV labetalol, 5 mg IV hydralazine with improvement in blood pressure as above. 40 mEq IV potassium, 3 L IV NS as well as cefepime, 2 g IV magnesium, and IV Dilaudid for pain. She is also required a total of 3 mg IV lorazepam due to acute agitation. She will be admitted for further management of dehydration due to decreased PO intake secondary to acute pancreatitis/diverticulitis and encephalopathy of unclear etiology. Review of Systems Review of Systems: Yes Unobtainable due to mental status [facility] Medical History Foreign body (FB) in soft tissue Personal history of nicotine dependence Hyperlipidemia Nausea & vomiting Hypochromic microcytic anemia Obesity due to excess calories Hypothyroidism Osteoarthritis Essential hypertension Family History Father Lung cancer Mother Congestive heart failure Type 2 diabetes mellitus Surgical History History of hernia surgery History of shoulder surgery History of tonsillectomy History of colonoscopy History of esophagogastroduodenoscopy (EGD) History of carpal tunnel release Social History Household Members: None Housing: Other Housing Other:: sober community Do you presently have visiting nurse or other home services: No Alcohol intake: former Patient Tobacco Use Status: Never used Tobacco Tobacco use type: Cigarette Years Smoked: 20 Substance Use Type: Marijuana Advance Directives: No Do you have a plan to hurt others: No Plan Nutrition Risks: No Nutritional Risk service: No Current occupational status: employed Meds Allergies Allergy/AdvReac Type Severity Reaction Status Date / Time Penicillins Allergy Severe Anaphylaxis Verified 11/19/23 04:43 Active Medications: Current Medications Acetaminophen (Acetaminophen 325 Mg Tablet) 650 mg PO Q6H PRN PRN Reason: Pain, Mild (Pain Scale 1-3) Hydromorphone HCl (Hydromorphone Hcl 0.5 Mg/0.5 Ml Syringe) 0.5 mg IVPUSH Q4H PRN; Protocol PRN Reason: Pain, Severe (Pain Scale 7-10) Potassium Chloride (Potassium Chloride/H20) 10 meq in 100 mls @ 100 mls/hr IV Q1H ITZEL Stop: 11/19/23 12:44 Meropenem 2 gm/ Sodium (Chloride) 100 mls @ 200 mls/hr IV Q8H ITZEL Acyclovir Sodium 722.3 mg/ (Sodium Chloride) 114.446 mls @ 114.446 mls/hr IV Q8H ITZEL Ondansetron HCl (Ondansetron Hcl 4 Mg/2 Ml Vial) 4 mg IVPUSH Q8H PRN PRN Reason: Nausea and Vomiting Pharmacy Consult (Consult Rx Vancomycin Dosing) 1 each MISCELLANE DAILY PRN PRN Reason: Consult order Senna (Sennosides 8.6 Mg Tablet) 17.2 mg PO BEDTIME PRN PRN Reason: Constipation Sodium Chloride (0.9 % Sodium Chloride Flush 3 Ml Syringe) 3 ml IVFLUSH QSHIFT [facility] Home Medications ?Medication ?Instructions ?Recorded ?Confirmed ?Last Taken ?Type amlodipine 5 mg tablet 5 mg PO DAILY 11/08/20 10/04/23 11/23/21 History prazosin 2 mg capsule 2 mg PO BEDTIME 11/08/20 10/04/23 Unknown History simvastatin 5 mg tablet 5 mg PO BEDTIME 11/08/20 10/04/23 Unknown History ferrous sulfate 325 mg (65 mg 325 mg PO DAILY 10/17/21 10/04/23 06/12/23 History iron) tablet gabapentin 300 mg capsule 300 mg PO TID 10/17/21 10/04/23 11/23/21 History hydroxyzine pamoate 25 mg capsule 25 mg PO BID PRN Anxiety 10/17/21 10/04/23 Unknown History omeprazole 20 mg capsule,delayed 20 mg PO BIDAC 10/17/21 10/04/23 11/23/21 History release tramadol 50 mg tablet 50 mg PO Q12H PRN Pain 11/16/21 10/04/23 11/23/21 History clindamycin HCl 300 mg capsule 300 mg PO TID 06/14/23 10/04/23 Unknown History Physical Exam Vital Signs and Narrative: Vital Signs: Last Vital Signs Temp 98.8 F 11/19/23 08:23 Pulse 86 11/19/23 09:28 Resp 16 11/19/23 09:28 BP 165/105 H 11/19/23 09:28 Pulse Ox 99 11/19/23 08:52 O2 Del Method Room Air 11/19/23 09:28 BMI result Body Mass Index 32.6 Constitutional - Awake and Alert, No apparent distress Eyes - PERRLA, EOMI Cardiovascular - S1S2, RRR, No edema Respiratory - Normal lung expansion, Normal respiratory effort, No respiratory distress, CTA bilaterally Gastrointestinal - abd soft, nondistended with diffuse ttp reported but no rebound or guarding. +BS Extremities - no calf tenderness bilaterally, no swelling Skin - Warm/Dry Neurological - Alert & oriented to self only, CN II-XII in tact, 5/5 strength BUE and BLE Psychological - Appropriate affect Results Labs 11/19/23 11:23 11/19/23 04:25 Labs: Laboratory Results - last 24 hr 11/19/23 11/19/23 11/19/23 04:25 04:37 05:15 MCV 71.8 L MCH 24.4 L MCHC 33.9 RDW 16.7 H Plt Count 491 H D MPV 11.3 Immature Gran % (Auto) 0.7 H Neut % (Auto) 85.6 H Lymph % (Auto) 7.3 L Garvin % (Auto) 5.9 Eos % (Auto) 0.3 Baso % (Auto) 0.2 Lymph # (Auto) 2.1 Garvin # (Auto) 1.7 H Eos # (Auto) 0.1 Baso # (Auto) 0.1 Abs Immat Gran (auto) 0.20 H Absolute Neuts (auto) 24.3 H Absolute Nucleated RBC 0.000 Nucleated RBC % (auto) 0.0 Smear Tech's Comments VERIFIED VBG pH 7.62 H* VBG pCO2 22 VBG pO2 37 VBG HCO3 23 VBG O2 Saturation 68.0 VBG Base Excess 4.6 Anion Gap 19 Estim Creat Clear Calc 54.1 Estimated GFR 41 Random Glucose 186 H Lactic Acid Lactic Acid F/U @ 2Hr Calcium 10.2 D Magnesium 1.6 Total Bilirubin 1.1 H AST 99 H ALT 53 H Alkaline Phosphatase 98 Total Creatine Kinase 2171 H Total Protein 8.2 H Albumin 4.6 Triglycerides 141 Cholesterol 199 LDL Cholesterol, Calc 106 H HDL Cholesterol 65 Lipase 71 Beta-Hydroxybutyrate 0.38 H TSH 0.05 L Urine Color Yellow Urine Appearance Clear Urine pH 8.0 Ur Specific [place] 1.015 Urine Protein 100 (2+) H Urine Glucose (UA) 250 H Urine Ketones 15 Urine Blood Moderate (2+) H Urine Nitrite Negative Ur Leukocyte Esterase Negative Urine RBC 3-5 H Urine WBC 0-5 Ur Squamous Epith Cells 0-2 Urine Bacteria None Seen Hyaline Casts 0-2 Salicylates Urine Opiates Screen Not Detected Ur Buprenorphine Scrn Not Detected Ur Oxycodone Screen Not Detected Urine Methadone Screen Not Detected Urine Fentanyl Screen Not Detected Acetaminophen Ur Barbiturates Screen Not Detected Ur Phencyclidine Scrn Not Detected Ur Amphetamines Screen Not Detected U Benzodiazepines Scrn Not Detected Urine Cocaine Screen Not Detected U Marijuana (THC) Screen POSITIVE H Ethyl Alcohol < 10 COVID-19 (REGINALDO) Negative COVID-19 Clin Com See Note Influenza Type A (BRODY) Negative Influenza Type B (BRODY) Negative Influenza A & B Note See Note 11/19/23 11/19/23 05:33 08:11 MCV MCH MCHC RDW Plt Count MPV Immature Gran % (Auto) Neut % (Auto) Lymph % (Auto) Garvin % (Auto) Eos % (Auto) Baso % (Auto) Lymph # (Auto) Garvin # (Auto) Eos # (Auto) Baso # (Auto) Abs Immat Gran (auto) Absolute Neuts (auto) Absolute Nucleated RBC Nucleated RBC % (auto) Smear Tech's Comments VBG pH VBG pCO2 VBG pO2 VBG HCO3 VBG O2 Saturation VBG Base Excess Anion Gap Estim Creat Clear Calc Estimated GFR Random Glucose Lactic Acid 2.6 H* Lactic Acid F/U @ 2Hr 1.4 Calcium Magnesium Total Bilirubin AST ALT Alkaline Phosphatase Total Creatine Kinase Total Protein Albumin Triglycerides Cholesterol LDL Cholesterol, Calc HDL Cholesterol Lipase Beta-Hydroxybutyrate TSH Urine Color Urine Appearance Urine pH Ur Specific [place] Urine Protein Urine Glucose (UA) Urine Ketones Urine Blood Urine Nitrite Ur Leukocyte Esterase Urine RBC Urine WBC Ur Squamous Epith Cells Urine Bacteria Hyaline Casts Salicylates < 5.0 L Urine Opiates Screen Ur Buprenorphine Scrn Ur Oxycodone Screen Urine Methadone Screen Urine Fentanyl Screen Acetaminophen < 3 Ur Barbiturates Screen Ur Phencyclidine Scrn Ur Amphetamines Screen U Benzodiazepines Scrn Urine Cocaine Screen U Marijuana (THC) Screen Ethyl Alcohol COVID-19 (REGINALDO) COVID-19 Clin Com Influenza Type A (BRODY) Influenza Type B (BRODY) Influenza A & B Note Imaging Radiologist's Impressions: Impressions Abdomen/Pelvis CT 11/19/23 04:45 IMPRESSION: 1. There is mild to moderate peripancreatic infiltration/fluid not seen previously. Findings are consistent with pancreatitis. 2. There is nonspecific pericolonic stranding along the descending colon. There are diverticula of the descending and sigmoid colon without definitive evidence for diverticulitis. 3. Cholelithiasis. 4. There is a left mid abdominal wall hernia containing fat similar to previous. Fleischner guidelines were followed. Abdomen/Pelvis CT 11/19/23 06:30 IMPRESSION: 1. Acute pancreatitis without evidence of pancreatic necrosis or drainable fluid collections. It is possible that some of the changes in the pancreas could be secondary to adjacent colonic diverticulitis (see below). 2. Colonic diverticulosis with some mild fat stranding around the mid and distal descending colon. This is unchanged when compared to the study from earlier today and was not present on the prior study from 10/19/2023. Findings are suggestive of mild diverticulitis with possible changes around the pancreas associated with this (see above), especially associated with a normal lipase. 3. Cholelithiasis without cholecystitis. 4. Other incidental findings as described above. Fleischner guidelines were followed. This critical result was discussed with Dr. Karley Culp at 8:40 AM on the morning of the exam and it was ascertained that the content and urgency of the report was understood at the time of direct communication. Head CT 11/19/23 07:59 IMPRESSION: No acute intracranial pathology. Assessment and Plan (1) Acute metabolic encephalopathy: Status: Acute (2) Rhabdomyolysis: Status: Acute (3) Hypokalemia: Status: Acute (4) Dehydration: Status: Acute (5) Acute pancreatitis: Status: Acute Plan 53 year old female with history of htn, hypothyroidism, chronic hypochromic microcytic anemia, hld, hx of schatzki's ring, diverticular disease admitted for further management of dehydration due to decreased PO intake secondary to acute pancreatitis/diverticulitis and encephalopathy of unclear etiology. #Acute metabolic encephalopathy- etiology unclear at this time -VBG with compensating metabolic alkalosis, no hypercapnia. Renal function reassuring. CT head negative for acute intracranial abnormality. Doubt hypertensive encephalopathy given improvement in BP without improvement in mental status. Utox only positive for THC. No evidence of viral URI. No UTI. -Check ammonia level -?Possibly r/t infection due to mild diverticulitis though less likely -Given ongoing encephalopathy with aggitation of unclear etiology, check LP with [employer] fluid analysis -Empiric coverage for diverticulitis and possible meningitis/encephalitis with meropenam (pcn allergic), vanco, and acyclovir (initiated 11/18) -ativan prn for acute aggitation -hold gabapentin, tramadol -Keep NPO for now -If no improvements, consider ID and neuro consult -monitor mentation closely #Acute diverticulitis -CT shows mild pericolonic fat stranding of descending colon -IV meropenam as above (initiated 11/19) -NPO, continue ivf -pain meds prn -antiemetics prn -Follow CBC, cultures #Acute pancreatitis -Peripanreatic fat stranding possibly r/t fat stranding from diverticulitis -symptomatic with n/v and abd pain. Lipase 71 -Continue aggressive IVF with LR -pain meds prn -antiemetics -keep npo for now -triglycerides wnl, no etoh use, no cbd dilitation suggestive of gallstone pancreatitis -consider gi consult if no improvement #Acute hypokalemia -due to GI losses -repleted in ED with 40meq IV KCl -Repeat BMP now #Acute rhabdomyolysis -due to dehydration from GI lossed -continue ivf #SIRS criteria -Leukocytosis- due to above, likely degree of hemoconcentration as well -Tachycardia and tachypnea due to acute agitation -no sepsis #Acute lactic acidosis -due to hypovolemia/dehydration secondary to GI losses -resolved wtih IVF. No SIRS criteria, no severe sepsis #HTN -uncontrolled due to med noncompliance and agitation -Improved with IV hydralazaine and labetalol -Trial PO amlopine 10mg #Hypothyroidism -tsh loq at 0.05, free t4 pending -resume levothyroxine with possible dose adjustment pending free t4 level #HLD -hold statin for now DVT prophylaxis- SCPs for now prior to LP Full code Pt requires inpt stay at least 2 midnights due to acute encephalopathy of unclear etiology requiring LP, close monitoring of mentation, empiric coverage for possible meningitis/diverticulitis, and possible expert consultation Quality Stroke Does the patient have a stroke diagnosis?: No VTE Prior VTE?: No VTE Risk Level:: Medical - moderate - high VTE Device Contraindication: N/A - Device Ordered VTE Drug Contraindication: Treatment Not Indicated
[2023-11-19] MEDS: amLODIPine Besylate 10 MG TABLET PO (11:08)
--- NOTE | 2023-11-19 11:20 | PC.NURSE ---
Pt ambulated to commode with RN assist. Meds given per SEP. All safety measures in place.
[2023-11-19 11:32] LABS: Basophils Percent Auto 0.2 % (0-2); Eosinophils Percent Auto 0.1 % (0-4); Hemoglobin 13.6 g/dl (12.0-16.0); Imm Gran Abs Auto 0.16 X10*3/uL (0.00-0.03); Imm Gran Pct Auto 0.6 % (0.0-0.4); Lymphocytes Absolute Auto 2.3 X10*3/uL (1.2-4.9); Lymphocytes Percent Auto 9.2 % (20-40); MANUAL DIFF FLAG SCAN; Mean Corpuscular HGB Conc 32.4 g/dl (31.0-35.0); Mean Corpuscular Hemoglobin 24.6 pg (27.0-33.0); Mean Corpuscular Volume 76.1 fL (80.0-98.0); Monocytes Absolute Auto 1.9 X10*3/uL (0.1-1.2); Monocytes Percent Auto 7.5 % (2-11); Neutrophils Absolute Auto 20.8 x10*3/uL (2.0-8.3); Neutrophils Percent Auto 82.4 % (45-73); Platelet Count 351 X10*3/uL (160-400); Red Blood Count 5.52 X10*6/uL (4.20-5.50); Red Cell Distribution Width 16.8 % (11.0-16.0); SCAN SMEAR FLAG 1; White Blood Count 25.2 X10*3/uL (4.8-10.8)
[2023-11-19 11:38] LABS: INTERNATIONAL NORM RATIO 0.9 (0.9-1.1); Prothrombin Time 10.9 SEC (11.1-13.3)
[2023-11-19 11:43] LABS: Ammonia 53 umol/L (13-55)
--- NOTE | 2023-11-19 11:58 | PHA.MEDREC ---
Pharmacy Consult ? Medication Reconciliation Pharmacy has completed the medication reconciliation. Pt unable to answer any of my questions. She simply told me she was sick repeatedly. She was able to tell me that she uses [facility] and takes what they give her. I contacted [facility] at [phone] and spoke to pharmacist Jennifer who confirmed patient recent medication history. Med rec complete from this conversation.
[2023-11-19 12:02] LABS: Anion Gap 16 (12-20); Blood Urea Nitrogen 17 mg/dL (9-16); Chloride 107 mmol/L (96-108); Estimated Glomerular Filt Rate 59; Glucose Random 122 mg/dL (60-115); Sodium 135 mmol/L (135-145)
[2023-11-19 12:17] LABS: Calcium 8.6 mg/dL (8.4-10.2); Carbon Dioxide 15 mmol/L (22-29); Potassium 3.8 mmol/L (3.3-5.1)
--- NOTE | 2023-11-19 15:27 | PC.NURSE ---
Pt continues to be redirected multiple times, pumps adjusted multiple times, new IV placed d/t infiltrate. Pt to be brought up to floor per transport
[2023-11-19] MEDS: 0.9 % Sodium Chloride Flush 3 ML SYRINGE IVFLUSH (15:52)
[2023-11-19] MEDS: Metoclopramide HCl 10 MG/2 ML VIAL IVPUSH (15:53)
[2023-11-19] MEDS: Lactated Ringers 1,000 ML 150 ML IVCONT (15:59)
[2023-11-19] MEDS: vancomycin/NS 2,000 MG/500 ML PLAST..BAG 250 MG IV (16:55)
--- NOTE | 2023-11-19 17:13 | P.CNNE_ITS ---
History of Present Illness Data of Consult Service Date: 11/19/23 Primary Care Provider: Josette Stuart NP HPI Reason for consult: Altered mental status This is a 53 year old female with history of HBP, hypothyroidism, chronic microcytic anemia, hld, hx of schatzki's ring, diverticular disease presented to the ED via EMS after becoming confused over 24 hrs , with vomiting an dsome fever but no significant headache. No Sz noted by boyfriend who was at bedside. She had nausea and vomiting and some diarrhea for 24 hrs with decreased PO intake. On arrival, she was notably agitated, tachycardic to 105 and tachypneic to 40. She was hypertensive to 203/121 with improvement to 154/106 on admission following administration of IV labetalol and hydralazine. No fevers or hypoxia. She has a leukocytosis 28.4, H/H above baseline at 15.1/44.5% Lytes significant for K 2.5, O2 21. Initial lactic acid 2.6, repeat 1.4. Total bilirubin 1.1, AST 99, ALT 53. Total CK 2171. Triglycerides 141. Beta hydroxybutyrate 0.38. TSH 0.05, free T4 pending. Lipase 71. Urinalysis significant for 2+ blood, 2+ protein, glucose, otherwise unremarkable. No evidence of UTI. Urine tox screen positive only for THC otherwise unremarkable. Ethyl alcohol level undetectable. Negative for COVID-19, influenza. Head CT negative for any acute intracranial abnormality. CT abdomen/pelvis with IV contrast shows acute pancreatitis without evidence of pancreatic necrosis or drainable fluid collections possible that some of the changes in the pancreas could be secondary to adjacent colonic diverticulitis. Diverticulitis noted with some mild fat stranding around the mid and distal descending colon. There is cholelithiasis without cholecystitis. In the ED, has received a total of 15 mg IV labetalol, 5 mg IV hydralazine with improvement in blood pressure as above. 40 mEq IV potassium, 3 L IV NS as well as cefepime, 2 g IV magnesium, and IV Dilaudid for pain. She is also required a total of 3 mg IV lorazepam due to acute agitation. She will be admitted for further management of dehydration due to decreased PO intake secondary to acute pancreatitis/diverticulitis and encephalopathy of unclear etiology. Review of Systems 2 Review of Systems: Please see the discussion above Yes Unobtainable due to mental status PMFSH Past Medical History Medical History Foreign body (FB) in soft tissue Personal history of nicotine dependence Hyperlipidemia Nausea & vomiting Hypochromic microcytic anemia Obesity due to excess calories Hypothyroidism Osteoarthritis Essential hypertension Family History Family History Father Lung cancer Mother Congestive heart failure Type 2 diabetes mellitus Surgical History Surgical History History of hernia surgery History of shoulder surgery History of tonsillectomy History of colonoscopy History of esophagogastroduodenoscopy (EGD) History of carpal tunnel release Social History Social History Household Members: Family Household Members Other:: 2 Housing: House Housing Other:: sober community Do you presently have visiting nurse or other home services: No Alcohol intake: former Patient Tobacco Use Status: Never used Tobacco Tobacco use type: Cigarette Years Smoked: 20 Substance Use Type: Marijuana service: No Current occupational status: employed Meds Allergies Allergy/AdvReac Type Severity Reaction Status Date / Time Penicillins Allergy Severe Anaphylaxis Verified 11/19/23 04:43 Active Medications: Current Medications Acetaminophen (Acetaminophen 325 Mg Tablet) 650 mg PO Q6H PRN PRN Reason: Pain, Mild (Pain Scale 1-3) Amlodipine Besylate (Amlodipine Besylate 10 Mg Tablet) 10 mg PO DAILY [facility]ZEL; Protocol Atorvastatin Calcium (Atorvastatin Calcium 10 Mg Tablet) 5 mg PO BEDTIME [facility] Hydrochlorothiazide (Hydrochlorothiazide 12.5 Mg Tablet) 12.5 mg PO DAILY [facility] Hydromorphone HCl (Hydromorphone Hcl 0.5 Mg/0.5 Ml Syringe) 0.5 mg IVPUSH Q4H PRN; Protocol PRN Reason: Pain, Severe (Pain Scale 7-10) Last Admin: 11/19/23 15:53 Dose: 0.5 mg Hydroxyzine HCl (Hydroxyzine Hcl 50 Mg Tablet) 50 mg PO BEDTIME PRN PRN Reason: Anxiety Meropenem 2 gm/ Sodium (Chloride) 100 mls @ 200 mls/hr IV Q8H [facility] Last Infusion: 11/19/23 11:53 Dose: Infused Acyclovir Sodium 722.3 mg/ (Sodium Chloride) 264.446 mls @ 264.446 mls/hr IV Q8H [facility] Last Infusion: 11/19/23 16:01 Dose: Infused Lactated Ringer's (Lr) 1,000 mls @ 150 mls/hr IVCONT .Q6H40M [facility] Last Admin: 11/19/23 15:59 Dose: 150 mls/hr Vancomycin HCl (Vancomycin/Ns) 2,000 mg in 500 mls @ 250 mls/hr IV ONCE ONE Stop: 11/19/23 19:59 Last Admin: 11/19/23 16:55 Dose: 250 mls/hr Vancomycin HCl 1,000 mg/ (Sodium Chloride) 270 mls @ 270 mls/hr IV Q12H [facility] Levothyroxine Sodium (Levothyroxine Sodium 175 Mcg Tablet) 175 mcg PO DAILY@0600 [facility] Lisinopril (Lisinopril 20 Mg Tablet) 20 mg PO DAILY [facility] Loratadine (Loratadine 10 Mg Tablet) 10 mg PO DAILY [facility] Metoclopramide HCl (Metoclopramide Hcl 10 Mg/2 Ml Vial) 10 mg IVPUSH Q4H PRN PRN Reason: Nausea and Vomiting Last Admin: 11/19/23 15:53 Dose: 10 mg Omeprazole (Omeprazole 20 Mg Capsule.Dr) 20 mg PO BID@0630,1630 [facility] Last Admin: 11/19/23 16:02 Dose: Not Given Ondansetron HCl (Ondansetron Hcl 4 Mg/2 Ml Vial) 4 mg IVPUSH Q8H PRN PRN Reason: Nausea and Vomiting Last Admin: 11/19/23 11:44 Dose: 4 mg Pharmacy Consult (Consult Rx Vancomycin Dosing) 1 each MISCELLANE DAILY PRN PRN Reason: Consult order Prazosin HCl (Prazosin Hcl 5 Mg Capsule) 5 mg PO BEDTIME [facility]; Protocol Senna (Sennosides 8.6 Mg Tablet) 17.2 mg PO BEDTIME PRN PRN Reason: Constipation Sodium Chloride (0.9 % Sodium Chloride Flush 3 Ml Syringe) 3 ml IVFLUSH QSHIFT [facility] Last Admin: 11/19/23 15:52 Dose: 3 ml Sucralfate (Sucralfate Oral Suspension 1 Gm/10 Ml Oral.Susp) 1 gm PO BID@0630,1630 [facility] Last Admin: 11/19/23 16:02 Dose: Not Given Home Medications ?Medication ?Instructions ?Recorded ?Confirmed ?Last Taken ?Type simvastatin 5 mg tablet 5 mg PO BEDTIME 11/08/20 11/19/23 Unknown History gabapentin 300 mg capsule 300 mg PO DAILY@1200 10/17/21 11/19/23 11/23/21 History hydroxyzine pamoate 25 mg capsule 50 mg PO BEDTIME PRN Anxiety 10/17/21 11/19/23 Unknown History omeprazole 20 mg capsule,delayed 20 mg PO BID@0630,1630 10/17/21 11/19/23 11/23/21 History release amlodipine 10 mg tablet 10 mg PO DAILY 11/19/23 11/19/23 Unknown History cetirizine 10 mg tablet 10 mg PO DAILY 11/19/23 11/19/23 Unknown History gabapentin 400 mg capsule 400 mg PO BID@0900,2100 11/19/23 11/19/23 Unknown History levothyroxine 175 mcg tablet 175 mcg PO DAILY@0600 11/19/23 11/19/23 Unknown History lisinopril 20 1 tab PO DAILY 11/19/23 11/19/23 Unknown History mg-hydrochlorothiazide 12.5 mg tablet prazosin 5 mg capsule 5 mg PO BEDTIME 11/19/23 11/19/23 Unknown History sucralfate 100 mg/mL oral 10 ml PO BID@0630,1630 11/19/23 11/19/23 Unknown History suspension (Carafate) Physical Exam 2 Vital Signs: Vital Signs: Last Vital Signs Temp 99.8 F 11/19/23 16:26 Pulse 100 11/19/23 16:26 Resp 20 11/19/23 16:26 BP 168/105 H 11/19/23 16:26 Pulse Ox 98 11/19/23 16:26 O2 Del Method Room Air 11/19/23 16:26 BMI result Body Mass Index 32.4 Neuro: Other: sleepy , But easily arousable. She is oriented to month and date but not year. She knows her age. She thinks she is in a hospital in [place]. Intermittently she starts making no sense and then starts to make sense, again with some expressive affluent dysphasia. She is able to repeat normally and name appropriately. Neck is supple. Cranial nerves are normal. Muscle tone and strength are normal in all 4 extremities and plantar response are flexor. Results Labs 11/19/23 11:23 11/19/23 11:23 Labs: Short CBC 11/19/23 11/19/23 Range/Units 04:25 11:23 WBC 28.4 H 25.2 H (4.8-10.8) X10*3/uL Hgb 15.1 D 13.6 (12.0-16.0) g/dl Hct 44.5 D 42.0 (37.0-47.0) % Plt Count 491 H D 351 D (160-400) X10*3/uL BMP 11/19/23 11/19/23 04:25 11:23 Sodium 136 135 Potassium 2.5 L* D 3.8 D Chloride 99 107 Carbon Dioxide 21 L 15 L BUN 25 H 17 H Creatinine 1.34 0.98 Calcium 10.2 D 8.6 D Cardiac Enzymes 11/19/23 Range/Units 04:25 Total Creatine Kinase 2171 H (26-140) U/L Liver Function 11/19/23 Range/Units 04:25 Total Bilirubin 1.1 H (0.0-1.0) mg/dL AST 99 H (5-31) U/L ALT 53 H (0-31) U/L Alkaline Phosphatase 98 (39-117) U/L Albumin 4.6 (3.5-5.0) g/dL Urine 11/19/23 Range/Units 05:15 Urine Color Yellow Urine Appearance Clear Urine pH 8.0 (5.0-9.0) Ur Specific [place] 1.015 (1.005-1.025) Urine Protein 100 (2+) H (Neg-Trace) mg/dL Urine Glucose (UA) 250 H (Negative) mg/dL Microbiology Microbiology Results: Microbiology 11/19/23 05:33 Blood - Venous Blood Culture - Preliminary Assessment and Plan (1) Acute metabolic encephalopathy: Status: Acute She has an acute onset of encephalopathy and with possibility of encephalitis, and possible fluent dysphasia Recommendations: Lumbar puncture for routine studies then PCR for herpes simplex. MRI of the brain. Correction of metabolic abnormalities. EKG when cooperative (2) Rhabdomyolysis: Status: Acute (3) Hypokalemia: Status: Acute (4) Dehydration: Status: Acute (5) Acute pancreatitis: Status: Acute Plan 53 year old female with history of htn, hypothyroidism, chronic hypochromic microcytic anemia, hld, hx of schatzki's ring, diverticular disease admitted for further management of dehydration due to decreased PO intake secondary to acute pancreatitis/diverticulitis and encephalopathy of unclear etiology. #Acute metabolic encephalopathy- etiology unclear at this time -VBG with compensating metabolic alkalosis, no hypercapnia. Renal function reassuring. CT head negative for acute intracranial abnormality. Doubt hypertensive encephalopathy given improvement in BP without improvement in mental status. Utox only positive for THC. No evidence of viral URI. No UTI. -Check ammonia level -?Possibly r/t infection due to mild diverticulitis though less likely -Given ongoing encephalopathy with aggitation of unclear etiology, check LP with [employer] fluid analysis -Empiric coverage for diverticulitis and possible meningitis/encephalitis with meropenam (pcn allergic), vanco, and acyclovir (initiated 11/18) -ativan prn for acute aggitation -hold gabapentin, tramadol -Keep NPO for now -If no improvements, consider ID and neuro consult -monitor mentation closely #Acute diverticulitis -CT shows mild pericolonic fat stranding of descending colon -IV meropenam as above (initiated 11/19) -NPO, continue ivf -pain meds prn -antiemetics prn -Follow CBC, cultures #Acute pancreatitis -Peripanreatic fat stranding possibly r/t fat stranding from diverticulitis -symptomatic with n/v and abd pain. Lipase 71 -Continue aggressive IVF with LR -pain meds prn -antiemetics -keep npo for now -triglycerides wnl, no etoh use, no cbd dilitation suggestive of gallstone pancreatitis -consider gi consult if no improvement #Acute hypokalemia -due to GI losses -repleted in ED with 40meq IV KCl -Repeat BMP now #Acute rhabdomyolysis -due to dehydration from GI lossed -continue ivf #SIRS criteria -Leukocytosis- due to above, likely degree of hemoconcentration as well -Tachycardia and tachypnea due to acute agitation -no sepsis #Acute lactic acidosis -due to hypovolemia/dehydration secondary to GI losses -resolved wtih IVF. No SIRS criteria, no severe sepsis #HTN -uncontrolled due to med noncompliance and agitation -Improved with IV hydralazaine and labetalol -Trial PO amlopine 10mg #Hypothyroidism -tsh loq at 0.05, free t4 pending -resume levothyroxine with possible dose adjustment pending free t4 level #HLD -hold statin for now DVT prophylaxis- SCPs for now prior to LP Full code Pt requires inpt stay at least 2 midnights due to acute encephalopathy of unclear etiology requiring LP, close monitoring of mentation, empiric coverage for possible meningitis/diverticulitis, and possible expert consultation Procedures Date of Service Date of Service: 11/19/23
[2023-11-20] MEDS: HYDROmorphone HCl 0.5 MG/0.5 ML SYRINGE IVPUSH ×3 (01:30→15:49)
[2023-11-20] MEDS: 0.9 % Sodium Chloride Flush 3 ML SYRINGE IVFLUSH ×3 (01:33→20:30)
[2023-11-20] MEDS: Lactated Ringers 1,000 ML 150 ML IVCONT ×3 (01:34→20:29)
[2023-11-20 04:00] VITALS: RESP 16; TEMP 36; O2SAT 95
[2023-11-20] MEDS: vancomycin HCL 1,000 MG in 0.9 % Sodium Chloride 250 ML 270 MG IV (06:37)
[2023-11-20 06:50] LABS: Basophils Absolute Auto 0.1 X10*3/uL (0.0-0.2); Basophils Percent Auto 0.5 % (0-2); Eosinophils Absolute Auto 0.1 X10*3/uL (0.0-0.4); Eosinophils Percent Auto 0.6 % (0-4); Hematocrit 36.2 % (37.0-47.0); Hemoglobin 11.9 g/dl (12.0-16.0); Imm Gran Abs Auto 0.08 X10*3/uL (0.00-0.03); Imm Gran Pct Auto 0.5 % (0.0-0.4); Lymphocytes Absolute Auto 3.3 X10*3/uL (1.2-4.9); Lymphocytes Percent Auto 19.3 % (20-40); MANUAL DIFF FLAG SCAN; Mean Corpuscular HGB Conc 32.9 g/dl (31.0-35.0); Mean Corpuscular Hemoglobin 24.4 pg (27.0-33.0); Mean Corpuscular Volume 74.2 fL (80.0-98.0); Mean Platelet Volume 11.6 fL (9.4-12.3); Monocytes Absolute Auto 1.5 X10*3/uL (0.1-1.2); Monocytes Percent Auto 8.9 % (2-11); Neutrophils Percent Auto 70.2 % (45-73); Platelet Count 339 X10*3/uL (160-400); Red Blood Count 4.88 X10*6/uL (4.20-5.50); Red Cell Distribution Width 16.6 % (11.0-16.0); SCAN SMEAR FLAG 1; White Blood Count 17.1 X10*3/uL (4.8-10.8)
[2023-11-20 07:04] LABS: Anion Gap 11 (12-20); Blood Urea Nitrogen 13 mg/dL (9-16); Calcium 8.5 mg/dL (8.4-10.2); Carbon Dioxide 23 mmol/L (22-29); Chloride 105 mmol/L (96-108); Creatinine Clr Calc Pharmacy 84.1; Estimated Glomerular Filt Rate > 60; Glucose Random 102 mg/dL (60-115); Sodium 136 mmol/L (135-145)
[2023-11-20 07:07] VITALS: BP 124/71; PULSE 83; RESP 18; TEMP 36.2; O2SAT 97
[2023-11-20 07:10] LABS: Potassium 2.9 mmol/L (3.3-5.1)
[2023-11-20 08:27] LABS: SLIDE REVIEW VERIFIED
--- NOTE | 2023-11-20 08:37 | HO.PM.IMPN ---
Subjective Subjective Date of Service: 11/20/23 Interval History: Noted improvement in abdominal discomfort. She is oriented to self, place, time and person. Lumbar puncture was attempted yesterday but could not be completed. Review of Systems Review of Systems: Yes all other systems are reviewed and are negative Physical Exam Vital Signs: Vital Signs: Last Vital Signs Temp 97.2 F 11/20/23 07:07 Pulse 83 11/20/23 07:07 Resp 18 11/20/23 07:07 BP 124/71 11/20/23 07:07 Pulse Ox 97 11/20/23 07:07 O2 Del Method Room Air 11/20/23 07:07 BMI result Body Mass Index 32.4 Middle-aged female lying in bed in no distress Neck supple, no JVD Regular rate and rhythm, S1-S2 heard Regular breath sounds bilaterally, no wheezing or crackles appreciated Abdomen with generalized tenderness, no guarding, no rebound tenderness Patient is awake, alert and oriented to self, place, time and person ; no focal motor deficit Psych: Normal mood No pedal edema Objective Data Active Medications Acetaminophen (Acetaminophen 325 Mg Tablet) 650 mg PO Q6H PRN PRN Reason: Pain, Mild (Pain Scale 1-3) Amlodipine Besylate (Amlodipine Besylate 10 Mg Tablet) 10 mg PO DAILY [facility]; Protocol Atorvastatin Calcium (Atorvastatin Calcium 10 Mg Tablet) 5 mg PO BEDTIME [facility] Last Admin: 11/19/23 20:08 Dose: Not Given Documented By: CECIL Non-Admin Reason: NPO Hydrochlorothiazide (Hydrochlorothiazide 12.5 Mg Tablet) 12.5 mg PO DAILY [facility] Hydromorphone HCl (Hydromorphone Hcl 0.5 Mg/0.5 Ml Syringe) 0.5 mg IVPUSH Q4H PRN; Protocol PRN Reason: Pain, Severe (Pain Scale 7-10) Last Admin: 11/20/23 06:37 Dose: 0.5 mg Documented By: CECIL Hydroxyzine HCl (Hydroxyzine Hcl 50 Mg Tablet) 50 mg PO BEDTIME PRN PRN Reason: Anxiety Lactated Ringer's (Lr) 1,000 mls @ 150 mls/hr IVCONT .Q6H40M [facility] Last Admin: 11/20/23 01:34 Dose: 150 mls/hr Documented By: CECIL Vancomycin HCl 1,000 mg/ (Sodium Chloride) 270 mls @ 270 mls/hr IV Q12H [facility] Last Admin: 11/20/23 06:37 Dose: 270 mls/hr Documented By: CECIL Acyclovir Sodium 722.3 mg/ (Sodium Chloride) 264.446 mls @ 264.446 mls/hr IV Q8H [facility] Last Admin: 11/20/23 01:30 Dose: 264.45 mls/hr Documented By: CECIL Meropenem 2 gm/ Sodium (Chloride) 100 mls @ 200 mls/hr IV Q8H [facility] Last Infusion: 11/20/23 00:55 Dose: Infused Documented By: CECIL Potassium Chloride (Potassium Chloride/H20) 10 meq in 100 mls @ 100 mls/hr IV Q1H [facility] Stop: 11/20/23 11:29 Levothyroxine Sodium (Levothyroxine Sodium 175 Mcg Tablet) 175 mcg PO DAILY@0600 [facility] Last Admin: 11/20/23 06:51 Dose: Not Given Documented By: CECIL Non-Admin Reason: NPO Lisinopril (Lisinopril 20 Mg Tablet) 20 mg PO DAILY [facility] Loratadine (Loratadine 10 Mg Tablet) 10 mg PO DAILY [facility] Metoclopramide HCl (Metoclopramide Hcl 10 Mg/2 Ml Vial) 10 mg IVPUSH Q4H PRN PRN Reason: Nausea and Vomiting Last Admin: 11/19/23 15:53 Dose: 10 mg Documented By: BATSHEVA Omeprazole (Omeprazole 20 Mg Capsule.Dr) 20 mg PO BID@0630,1630 [facility] Last Admin: 11/20/23 06:49 Dose: Not Given Documented By: CECIL Non-Admin Reason: NPO Ondansetron HCl (Ondansetron Hcl 4 Mg/2 Ml Vial) 4 mg IVPUSH Q8H PRN PRN Reason: Nausea and Vomiting Last Admin: 11/19/23 21:02 Dose: 4 mg Documented By: CECIL Pharmacy Consult (Consult Rx Vancomycin Dosing) 1 each MISCELLANE DAILY PRN PRN Reason: Consult order Prazosin HCl (Prazosin Hcl 5 Mg Capsule) 5 mg PO BEDTIME [facility]; Protocol Last Admin: 11/19/23 20:08 Dose: Not Given Documented By: CECIL Non-Admin Reason: NPO Senna (Sennosides 8.6 Mg Tablet) 17.2 mg PO BEDTIME PRN PRN Reason: Constipation Sodium Chloride (0.9 % Sodium Chloride Flush 3 Ml Syringe) 3 ml IVFLUSH QSHIFT [facility] Last Admin: 11/20/23 01:33 Dose: 3 ml Documented By: CECIL Sucralfate (Sucralfate Oral Suspension 1 Gm/10 Ml Oral.Susp) 1 gm PO BID@0630,1630 [facility] Last Admin: 11/20/23 06:50 Dose: Not Given Documented By: CECIL Non-Admin Reason: NPO Labs 11/20/23 06:02 11/20/23 06:02 Labs: Laboratory Results - last 24 hr 11/19/23 11/19/23 11/19/23 04:25 08:11 11:23 MCV 76.1 L MCH 24.6 L MCHC 32.4 RDW 16.8 H Plt Count 351 D MPV 11.0 Immature Gran % (Auto) 0.6 H Neut % (Auto) 82.4 H Lymph % (Auto) 9.2 L [place] % (Auto) 7.5 Eos % (Auto) 0.1 Baso % (Auto) 0.2 Lymph # (Auto) 2.3 [place] # (Auto) 1.9 H Eos # (Auto) 0.0 Baso # (Auto) 0.0 Abs Immat Gran (auto) 0.16 H Absolute Neuts (auto) 20.8 H Absolute Nucleated RBC 0.000 Nucleated RBC % (auto) 0.0 Smear Tech's Comments PT 10.9 L INR 0.9 Anion Gap 16 Estim Creat Clear Calc 74.0 Estimated GFR 59 Random Glucose 122 H Lactic Acid F/U @ 2Hr 1.4 Calcium 8.6 D Ammonia 53 Total Creatine Kinase TSH 0.05 L Free T4 1.40 11/20/23 06:02 MCV 74.2 L MCH 24.4 L MCHC 32.9 RDW 16.6 H Plt Count 339 MPV 11.6 Immature Gran % (Auto) 0.5 H Neut % (Auto) 70.2 Lymph % (Auto) 19.3 L [place] % (Auto) 8.9 Eos % (Auto) 0.6 Baso % (Auto) 0.5 Lymph # (Auto) 3.3 [place] # (Auto) 1.5 H Eos # (Auto) 0.1 Baso # (Auto) 0.1 Abs Immat Gran (auto) 0.08 H Absolute Neuts (auto) 12.0 H Absolute Nucleated RBC 0.000 Nucleated RBC % (auto) 0.0 Smear Tech's Comments VERIFIED PT INR Anion Gap 11 L Estim Creat Clear Calc 84.1 Estimated GFR > 60 Random Glucose 102 Lactic Acid F/U @ 2Hr Calcium 8.5 Ammonia Total Creatine Kinase 720 H TSH Free T4 Microbiology Microbiology Results: Microbiology 11/19/23 05:33 Blood Culture - Preliminary Blood - Venous No growth after 24 hours. 11/19/23 05:33 Blood Culture - Preliminary Blood - Venous Assessment and Plan (1) Acute metabolic encephalopathy: Status: Acute (2) Rhabdomyolysis: Status: Acute (3) Acute pancreatitis: Status: Acute Plan 53 year old female with history of htn, hypothyroidism, chronic hypochromic microcytic anemia, hld, hx of schatzki's ring, diverticular disease admitted for further management of dehydration due to decreased PO intake secondary to acute pancreatitis/diverticulitis and encephalopathy of unclear etiology. #Acute metabolic encephalopathy -Likely in the setting of pancreatitis/diverticulitis versus encephalitis. Evaluated by neurology. Re-attempt lumbar puncture today. Noted improvement since admission. -hold gabapentin, tramadol -Keep NPO for now, may attempt advancing diet if mentation continues to improve #Acute mild diverticulitis -continue empiric IV antibiotics #Acute pancreatitis -?previous history of pancreatitis. Unclear etiology -Continue aggressive IVF with LR -symptomatic treatment with antiemetics and analgesia -triglycerides wnl, no etoh use, no cbd dilitation suggestive of gallstone pancreatitis -consider gi consult if no improvement #Acute hypokalemia -due to GI losses -repleting #Acute rhabdomyolysis/resolved -due to dehydration from GI losses -continue ivf #HTN -initiated amlodipine #Hypothyroidism -on Synthroid #HLD -hold statin for now DVT prophylaxis- SCPs for now prior to LP Full code Reason for continued hospitalization: IV antibiotics, monitoring of mentation, pending evaluation with lumbar puncture Quality Stroke Does the patient have a stroke diagnosis?: No VTE Prior VTE?: No VTE Risk Level:: Medical - moderate - high VTE Device Contraindication: N/A - Device Ordered VTE Drug Contraindication: Treatment Not Indicated
--- NOTE | 2023-11-20 08:53 | MHC.CM.PN ---
Pt self-care, lives alone at home. Pt states she receives [employer] services daily from her daughter who is the [employer]. HCP declined at this time. Pts states her daughter will transport her home at D/C. PCP: Josette CR
[2023-11-20] MEDS: Potassium Chloride/H20 10 MEQ/100 ML PIGGYBACK 100 MEQ IV ×3 (09:05→12:16)
[2023-11-20] MEDS: ondansetron HCL 4 MG/2 ML VIAL IVPUSH (09:13)
[2023-11-20] MEDS: LORazepam 2 MG/ML VIAL 1 MG IVPUSH (11:13)
[2023-11-20] MEDS: Metoclopramide HCl 10 MG/2 ML VIAL IVPUSH ×3 (11:13→20:33)
[2023-11-20 12:00] VITALS: BP 148/86; PULSE 97; RESP 18; TEMP 36.4; O2SAT 98
--- NOTE | 2023-11-20 12:02 | PC.NURSE ---
pts Meropenem and acyclovir not given at 0500. Pharmacy was contacted to time medications. Meropenem's time was changed by pharmacy. Acyclovir was not changed. Acyclovir dose given around 0930. Next dose due at 1300. This RN is skipping 1300 dose in anticipation of pharmacy changing time of dose dose. If time not changed, next dose is due at 2100.
--- NOTE | 2023-11-20 12:04 | PM.EVENT ---
Event Note Date of Service: 11/20/23 Event Note: Procedure Note: Lumbar puncture Indications: AMS, leukocytosis L4-5, Opening pressure 19 cm H20 (prone). 10 cc clear csf removed and sent for requested labs. No immediate complications. Wiley TIRADO Interventional Radiology Time Spent With Patient Time: Total time managing care of this patient today ____ minutes.
[2023-11-20 12:40] LABS: CSF Appearance Clear, Colorless; CSF Tube # 1
[2023-11-20 12:51] LABS: Glucose CSF 65 mg/dL; Total Protein CSF 25.8 mg/dL (15-45)
[2023-11-20 13:08] LABS: CMV DNA PCR Qn Source BLOOD; CMV DNA Qn PCR NOT DETECTED Log IU/mL (NOT DETECTED); CMV DNA Qn Real Time PCR NOT DETECTED (NOT DETECTED)
--- NOTE | 2023-11-20 13:42 | MHC.CLN ---
NUTRITION CONSULT FOR PATIENT IS NPO. PER PROVIDER, NPO DUE TO ENCEPHALOPATHY WITH ASPIRATION RISK. MONITOR FOR DIET ADVANCEMENT.
[2023-11-20] MEDS: Potassium Chloride Packet 20 MEQ PACKET 40 MEQ PO (14:02)
[2023-11-20 14:14] LABS: Cryptococcus neoformans/gattii Not Detected (Not Detect.); Enterovirus Not Detected (Not Detect.); Escherichia coli K1 Not Detected (Not Detect.); Haemophilus influenzae Not Detected (Not Detect.); Herpes simplex virus 1 Not Detected (Not Detect.); Herpes simplex virus 2 Not Detected (Not Detect.); Human herpesvirus 6 Not Detected (Not Detect.); Human parechovirus Not Detected (Not Detect.); Listeria monocytogenes Not Detected (Not Detect.); Neisseria meningitidis Not Detected (Not Detect.); Streptococcus agalactiae Not Detected (Not Detect.); Streptococcus pneumoniae Not Detected (Not Detect.); Varicella zoster virus Not Detected (Not Detect.)
[2023-11-20 14:32] LABS: Appearance CSF CLEAR; CSF Tube # 4; CSF Volume 2.5 ML; Color CSF COLORLESS; Red Blood Cell CSF 1 MM*3; White Blood Cell CSF 3 MM*3
[2023-11-20 14:33] LABS: CSF Monos 6 %; Lymphocytes CSF 88 %; Neutrophils CSF 6 %
[2023-11-20 15:28] VITALS: BP 138/75; PULSE 84; RESP 17; TEMP 36.7; O2SAT 96
[2023-11-20] MEDS: Omeprazole 20 MG CAPSULE.DR PO (15:49)
[2023-11-20] MEDS: Sucralfate Oral Suspension 1 GM/10 ML ORAL.SUSP PO (15:49)
[2023-11-20 16:45] LABS: Vancomycin Random 20.1 mcg/mL (15-20)
[2023-11-20] MEDS: vancomycin HCL 750 MG in 0.9 % Sodium Chloride 250 ML 265 MG IV (17:02)
[2023-11-20 19:19] VITALS: BP 147/80; PULSE 97; RESP 20; TEMP 36.9; O2SAT 96
[2023-11-20] MEDS: Prazosin HCL 5 MG CAPSULE PO (20:28)
[2023-11-20] MEDS: Atorvastatin Calcium 10 MG TABLET 5 MG PO (20:29)
[2023-11-20 22:28] VITALS: BP 130/74; PULSE 122; RESP 20; TEMP 36.2; O2SAT 94
[2023-11-21] VITALS (7 sets, daily range): BP systolic 109–144; BP diastolic 60–83; PULSE 75–85; RESP 15–19; TEMP 36.9–37.7; O2SAT 96–98
[2023-11-21] MEDS: Lactated Ringers 1,000 ML 150 ML IVCONT ×2 (02:54→11:34)
[2023-11-21] MEDS: Omeprazole 20 MG CAPSULE.DR PO ×2 (05:55→17:58)
[2023-11-21] MEDS: Levothyroxine Sodium 175 MCG TABLET PO (05:55)
[2023-11-21] MEDS: vancomycin HCL 750 MG in 0.9 % Sodium Chloride 250 ML 265 MG IV (05:55)
[2023-11-21] MEDS: Sucralfate Oral Suspension 1 GM/10 ML ORAL.SUSP PO ×2 (05:55→17:57)
[2023-11-21 06:55] LABS: MANUAL DIFF FLAG NO
[2023-11-21 07:10] LABS: Basophils Absolute Auto 0.1 X10*3/uL (0.0-0.2); Basophils Percent Auto 0.9 % (0-2); Eosinophils Absolute Auto 0.2 X10*3/uL (0.0-0.4); Eosinophils Percent Auto 1.6 % (0-4); Hematocrit 30.6 % (37.0-47.0); Imm Gran Abs Auto 0.06 X10*3/uL (0.00-0.03); Imm Gran Pct Auto 0.6 % (0.0-0.4); Lymphocytes Absolute Auto 2.5 X10*3/uL (1.2-4.9); Lymphocytes Percent Auto 24.7 % (20-40); Mean Corpuscular HGB Conc 32.7 g/dl (31.0-35.0); Mean Corpuscular Hemoglobin 24.8 pg (27.0-33.0); Mean Corpuscular Volume 75.7 fL (80.0-98.0); Mean Platelet Volume 11.3 fL (9.4-12.3); Monocytes Absolute Auto 0.9 X10*3/uL (0.1-1.2); Monocytes Percent Auto 8.9 % (2-11); Neutrophils Absolute Auto 6.3 x10*3/uL (2.0-8.3); Neutrophils Percent Auto 63.3 % (45-73); Platelet Count 230 X10*3/uL (160-400); Red Blood Count 4.04 X10*6/uL (4.20-5.50); Red Cell Distribution Width 16.2 % (11.0-16.0)
[2023-11-21 07:24] LABS: Anion Gap 8 (12-20); Blood Urea Nitrogen 9 mg/dL (9-16); Calcium 7.9 mg/dL (8.4-10.2); Carbon Dioxide 26 mmol/L (22-29); Chloride 108 mmol/L (96-108); Creatinine Clr Calc Pharmacy 93.8; Estimated Glomerular Filt Rate > 60; Glucose Random 93 mg/dL (60-115); Sodium 139 mmol/L (135-145)
[2023-11-21 10:19] LABS: Herpes Simplex Type 1 IgG <0.90 index; Herpes Simplex Type 2 IgG 9.59 index
[2023-11-21] MEDS: hydroCHLOROthiazide 12.5 MG TABLET PO (11:05)
[2023-11-21] MEDS: Loratadine 10 MG TABLET PO (11:06)
[2023-11-21] MEDS: lisinopriL 20 MG TABLET PO (11:06)
[2023-11-21] MEDS: 0.9 % Sodium Chloride Flush 3 ML SYRINGE IVFLUSH ×3 (11:11→21:57)
[2023-11-21] MEDS: amLODIPine Besylate 10 MG TABLET PO (11:11)
[2023-11-21] MEDS: Metoclopramide HCl 10 MG/2 ML VIAL IVPUSH (11:18)
[2023-11-21] MEDS: HYDROmorphone HCl 0.5 MG/0.5 ML SYRINGE IVPUSH ×3 (11:22→21:54)
--- NOTE | 2023-11-21 11:38 | HO.PM.IMPN ---
Subjective Subjective Date of Service: 11/21/23 Interval History: No significant nursing events overnight. Patient continues to have abdominal pain with nausea. Is awake and oriented x3 Review of Systems Review of Systems: Yes all other systems are reviewed and are negative Physical Exam Vital Signs: Vital Signs: Last Vital Signs Temp 99.8 F 11/21/23 11:02 Pulse 81 11/21/23 11:02 Resp 18 11/21/23 11:02 BP 144/74 H 11/21/23 11:06 Pulse Ox 96 11/21/23 11:02 O2 Del Method Room Air 11/21/23 11:02 BMI result Body Mass Index 32.4 Middle-aged female lying in bed in no distress Neck supple, no JVD Regular rate and rhythm, S1-S2 heard Regular breath sounds bilaterally, no wheezing or crackles appreciated Abdomen with generalized tenderness, no guarding, no rebound tenderness Patient is awake, alert and oriented to self, place, time and person ; no focal motor deficit Psych: Normal mood No pedal edema Objective Data Active Medications Acetaminophen (Acetaminophen 325 Mg Tablet) 650 mg PO Q6H PRN PRN Reason: Pain, Mild (Pain Scale 1-3) Amlodipine Besylate (Amlodipine Besylate 10 Mg Tablet) 10 mg PO DAILY [facility]; Protocol Last Admin: 11/21/23 11:11 Dose: 10 mg Documented By: DAVONTE Atorvastatin Calcium (Atorvastatin Calcium 10 Mg Tablet) 5 mg PO BEDTIME [facility] Last Admin: 11/20/23 20:29 Dose: 5 mg Documented By: MADDI Hydrochlorothiazide (Hydrochlorothiazide 12.5 Mg Tablet) 12.5 mg PO DAILY [facility] Last Admin: 11/21/23 11:05 Dose: 12.5 mg Documented By: DAVONTE Hydromorphone HCl (Hydromorphone Hcl 0.5 Mg/0.5 Ml Syringe) 0.5 mg IVPUSH Q4H PRN; Protocol PRN Reason: Pain, Severe (Pain Scale 7-10) Last Admin: 11/21/23 11:22 Dose: 0.5 mg Documented By: DAVONTE Hydroxyzine HCl (Hydroxyzine Hcl 50 Mg Tablet) 50 mg PO BEDTIME PRN PRN Reason: Anxiety Meropenem 2 gm/ Sodium (Chloride) 100 mls @ 200 mls/hr IV Q8H [facility] Last Admin: 11/21/23 11:08 Dose: 200 mls/hr Documented By: DAVONTE Acyclovir Sodium 722.3 mg/ (Sodium Chloride) 264.446 mls @ 264.446 mls/hr IV Q8H [facility] Last Admin: 11/21/23 11:09 Dose: 722.3 mls/hr Documented By: DAVONTE Vancomycin HCl 750 mg/ Sodium (Chloride) 265 mls @ 265 mls/hr IV Q12H [facility] Last Admin: 11/21/23 05:55 Dose: 265 mls/hr Documented By: MADDI Levothyroxine Sodium (Levothyroxine Sodium 175 Mcg Tablet) 175 mcg PO DAILY@0600 [facility] Last Admin: 11/21/23 05:55 Dose: 175 mcg Documented By: MADDI Lisinopril (Lisinopril 20 Mg Tablet) 20 mg PO DAILY [facility] Last Admin: 11/21/23 11:06 Dose: 20 mg Documented By: DAVONTE Loratadine (Loratadine 10 Mg Tablet) 10 mg PO DAILY [facility] Last Admin: 11/21/23 11:06 Dose: 10 mg Documented By: DAVONTE Metoclopramide HCl (Metoclopramide Hcl 10 Mg/2 Ml Vial) 10 mg IVPUSH Q4H PRN PRN Reason: Nausea and Vomiting Last Admin: 11/21/23 11:18 Dose: 10 mg Documented By: DAVONTE Omeprazole (Omeprazole 20 Mg Capsule.Dr) 20 mg PO BID@0630,1630 [facility] Last Admin: 11/21/23 05:55 Dose: 20 mg Documented By: MADDI Ondansetron HCl (Ondansetron Hcl 4 Mg/2 Ml Vial) 4 mg IVPUSH Q8H PRN PRN Reason: Nausea and Vomiting Last Admin: 11/20/23 09:13 Dose: 4 mg Documented By: MARIANA Pharmacy Consult (Consult Rx Vancomycin Dosing) 1 each MISCELLANE DAILY PRN PRN Reason: Consult order Prazosin HCl (Prazosin Hcl 5 Mg Capsule) 5 mg PO BEDTIME [facility]; Protocol Last Admin: 11/20/23 20:28 Dose: 5 mg Documented By: MADDI Senna (Sennosides 8.6 Mg Tablet) 17.2 mg PO BEDTIME PRN PRN Reason: Constipation Sodium Chloride (0.9 % Sodium Chloride Flush 3 Ml Syringe) 3 ml IVFLUSH QSHIFT [facility] Last Admin: 11/21/23 11:11 Dose: 3 ml Documented By: DAVONTE Sucralfate (Sucralfate Oral Suspension 1 Gm/10 Ml Oral.Susp) 1 gm PO BID@0630,1630 [facility] Last Admin: 11/21/23 05:55 Dose: 1 gm Documented By: MADDI Labs 11/21/23 06:24 11/21/23 06:24 Labs: Laboratory Results - last 24 hr 11/19/23 11/20/23 11/20/23 11:23 09:04 11:46 MCV MCH MCHC RDW Plt Count MPV Immature Gran % (Auto) Neut % (Auto) Lymph % (Auto) [place] % (Auto) Eos % (Auto) Baso % (Auto) Lymph # (Auto) [place] # (Auto) Eos # (Auto) Baso # (Auto) Abs Immat Gran (auto) Absolute Neuts (auto) Absolute Nucleated RBC Nucleated RBC % (auto) Anion Gap Estim Creat Clear Calc Estimated GFR Random Glucose Calcium Total Creatine Kinase CSF Tube Number 1 CSF Volume CSF Appearance CSF Color CSF WBC CSF RBC CSF Neutrophils CSF Lymphocytes CSF Monocytes % CSF Appearance (b) CSF Glucose CSF Total Protein CSF C.neoform/gat PCR CSF CMV DNA (PCR) CSF Enterovirus (PCR) CSF E. coli K1 (PCR) CSF H. influenzae (PCR) CSF HSV I (PCR) CSF HSV II (PCR) CSF HHV 6 (PCR) CSF L.monocytogenes PCR CSF N. meningitidis PCR CSF Parechovirus (PCR) CSF S. agalactiae (PCR) CSF S. pneumoniae (PCR) CSF VZV (PCR) Random Vancomycin CMV Specimen Source BLOOD CMV Qnt PCR IU/mL NOT DETECTED CMV Qnt PCR log IU/mL NOT DETECTED HSV I IgG Ab <0.90 HSV II IgG 9.59 H 11/20/23 11/20/23 11/21/23 11:46 16:02 06:24 MCV 75.7 L MCH 24.8 L MCHC 32.7 RDW 16.2 H Plt Count 230 D MPV 11.3 Immature Gran % (Auto) 0.6 H Neut % (Auto) 63.3 Lymph % (Auto) 24.7 [place] % (Auto) 8.9 Eos % (Auto) 1.6 Baso % (Auto) 0.9 Lymph # (Auto) 2.5 [place] # (Auto) 0.9 Eos # (Auto) 0.2 Baso # (Auto) 0.1 Abs Immat Gran (auto) 0.06 H Absolute Neuts (auto) 6.3 Absolute Nucleated RBC 0.000 Nucleated RBC % (auto) 0.0 Anion Gap 8 L Estim Creat Clear Calc 93.8 Estimated GFR > 60 Random Glucose 93 Calcium 7.9 L D Total Creatine Kinase 172 H CSF Tube Number 4 CSF Volume 2.5 CSF Appearance CLEAR CSF Color COLORLESS CSF WBC 3 CSF RBC 1 CSF Neutrophils 6 CSF Lymphocytes 88 CSF Monocytes % 6 CSF Appearance (b) Clear, Colorless CSF Glucose 65 CSF Total Protein 25.8 CSF C.neoform/gat PCR Not Detected CSF CMV DNA (PCR) Not Detected CSF Enterovirus (PCR) Not Detected CSF E. coli K1 (PCR) Not Detected CSF H. influenzae (PCR) Not Detected CSF HSV I (PCR) Not Detected CSF HSV II (PCR) Not Detected CSF HHV 6 (PCR) Not Detected CSF L.monocytogenes PCR Not Detected CSF N. meningitidis PCR Not Detected CSF Parechovirus (PCR) Not Detected CSF S. agalactiae (PCR) Not Detected CSF S. pneumoniae (PCR) Not Detected CSF VZV (PCR) Not Detected Random Vancomycin 20.1 H CMV Specimen Source CMV Qnt PCR IU/mL CMV Qnt PCR log IU/mL HSV I IgG Ab HSV II IgG Microbiology Microbiology Results: Microbiology 11/20/23 11:46 Gram Stain - Final Cerebrospinal Fluid CSF Examination - Final Fluid Description - Final CSF Culture - Preliminary No growth after 1 day 11/19/23 05:33 Blood Culture - Preliminary Blood - Venous No growth after 48 hours. 11/19/23 05:33 Blood Culture - Preliminary Blood - Venous No growth after 48 hours. Assessment and Plan (1) Acute metabolic encephalopathy: Status: Acute (2) Acute pancreatitis: Status: Acute Plan 53 year old female with history of htn, hypothyroidism, chronic hypochromic microcytic anemia, hld, hx of schatzki's ring, diverticular disease admitted for further management of dehydration due to decreased PO intake secondary to acute pancreatitis/diverticulitis and encephalopathy of unclear etiology. #Acute pancreatitis -?previous history of pancreatitis. Unclear etiology -Continue aggressive IVF with LR -symptomatic treatment with antiemetics and analgesia -triglycerides wnl, no etoh use, no cbd dilitation suggestive of gallstone pancreatitis -clear liquid diet and advance as tolerated #Sepsis due to acute diverticulitis -continue empiric IV antibiotics. Resolution of leukocytosis. Blood cultures negative till date #Acute metabolic encephalopathy-resolved -Likely in the setting of pancreatitis/diverticulitis. Neurology was consulted, there was concern for viral encephalitis. Patient underwent LP> CSF protein okay and CSF HSV negative. Discussed with Neurology, will stop acyclovir. #Acute hypokalemia -due to GI losses -repleting #Acute rhabdomyolysis-resolved -due to dehydration from GI losses -continue ivf #HTN -on amlodipine, lisinopril and hydrochlorothiazide #Hypothyroidism -on Synthroid DVT prophylaxis-Lovenox Full code Reason for continued hospitalization: IV antibiotics, IV opioids p.r.n., awaiting clinical defervescence and return of normal p.o. intake Quality Stroke Does the patient have a stroke diagnosis?: No VTE Prior VTE?: No VTE Risk Level:: Medical - moderate - high VTE Device Contraindication: Treatment Not Indicated VTE Drug Contraindication: N/A - Med Ordered
[2023-11-21] MEDS: Lactated Ringers 1,000 ML 100 ML IVCONT ×2 (14:39→23:55)
[2023-11-21] MEDS: Potassium Chloride Packet 20 MEQ PACKET 40 MEQ PO (14:39)
[2023-11-21] MEDS: Enoxaparin Sodium 40 MG/0.4 ML SYRINGE SUBCUT (14:39)
[2023-11-21] MEDS: Atorvastatin Calcium 10 MG TABLET 5 MG PO (21:54)
[2023-11-21] MEDS: Prazosin HCL 5 MG CAPSULE PO (21:54)
[2023-11-22] VITALS: BP 140/80; PULSE 76; RESP 20; TEMP 37; O2SAT 98
[2023-11-22 04:00] VITALS: BP 130/77; PULSE 68; RESP 18; TEMP 37.4; O2SAT 97
[2023-11-22] MEDS: Sucralfate Oral Suspension 1 GM/10 ML ORAL.SUSP PO (05:48)
[2023-11-22] MEDS: Levothyroxine Sodium 175 MCG TABLET PO (05:48)
[2023-11-22] MEDS: Omeprazole 20 MG CAPSULE.DR PO (05:48)
[2023-11-22 07:02] LABS: MANUAL DIFF FLAG NO
[2023-11-22 07:11] LABS: Basophils Absolute Auto 0.1 X10*3/uL (0.0-0.2); Basophils Percent Auto 0.8 % (0-2); Eosinophils Absolute Auto 0.2 X10*3/uL (0.0-0.4); Hematocrit 30.5 % (37.0-47.0); Hemoglobin 10.1 g/dl (12.0-16.0); Imm Gran Abs Auto 0.04 X10*3/uL (0.00-0.03); Imm Gran Pct Auto 0.5 % (0.0-0.4); Lymphocytes Absolute Auto 2.6 X10*3/uL (1.2-4.9); Lymphocytes Percent Auto 33.4 % (20-40); Mean Corpuscular HGB Conc 33.1 g/dl (31.0-35.0); Mean Corpuscular Hemoglobin 24.6 pg (27.0-33.0); Mean Corpuscular Volume 74.2 fL (80.0-98.0); Mean Platelet Volume 11.4 fL (9.4-12.3); Monocytes Absolute Auto 0.7 X10*3/uL (0.1-1.2); Monocytes Percent Auto 9.2 % (2-11); Neutrophils Absolute Auto 4.1 x10*3/uL (2.0-8.3); Neutrophils Percent Auto 53.1 % (45-73); Platelet Count 235 X10*3/uL (160-400); Red Blood Count 4.11 X10*6/uL (4.20-5.50); Red Cell Distribution Width 15.9 % (11.0-16.0); White Blood Count 7.7 X10*3/uL (4.8-10.8)
[2023-11-22 07:48] VITALS: BP 141/83; PULSE 78; RESP 20; TEMP 36.4; O2SAT 98
[2023-11-22 07:49] LABS: Anion Gap 10 (12-20); Blood Urea Nitrogen 6 mg/dL (9-16); Calcium 8.3 mg/dL (8.4-10.2); Carbon Dioxide 26 mmol/L (22-29); Chloride 106 mmol/L (96-108); Creatinine Clr Calc Pharmacy 96.4; Estimated Glomerular Filt Rate > 60; Glucose Random 89 mg/dL (60-115); Potassium 3.1 mmol/L (3.3-5.1); Sodium 139 mmol/L (135-145)
[2023-11-22] MEDS: Lactated Ringers 1,000 ML 100 ML IVCONT (10:26)
[2023-11-22 10:27] VITALS: BP 141/83
[2023-11-22] MEDS: 0.9 % Sodium Chloride Flush 3 ML SYRINGE IVFLUSH (10:27)
[2023-11-22] MEDS: hydroCHLOROthiazide 12.5 MG TABLET PO (10:27)
[2023-11-22] MEDS: Potassium Chloride ER 20 MEQ TAB.ER.PRT 40 MEQ PO (10:27)
[2023-11-22 10:28] VITALS: BP 141/83
[2023-11-22] MEDS: Enoxaparin Sodium 40 MG/0.4 ML SYRINGE SUBCUT (10:28)
[2023-11-22] MEDS: amLODIPine Besylate 10 MG TABLET PO (10:28)
[2023-11-22] MEDS: lisinopriL 20 MG TABLET PO (10:28)
[2023-11-22] MEDS: Loratadine 10 MG TABLET PO (10:28)
[2023-11-22 11:25] VITALS: BP 150/84; PULSE 67; RESP 20; TEMP 37.1; O2SAT 100
--- NOTE | 2023-11-22 13:09 | PM.DS ---
DS: Providers Provider Date of Service: 11/22/23 Date of admission: 11/19/23 10:34 Primary care physician: Josette Stuart NP Consults: 11/19/23 14:30 Consult to Neurology Routine Consulting Provider: [facility] Reason for consultation: encephalopathy DS: Diagnosis Discharge Diagnosis (1) Acute metabolic encephalopathy: Status: Acute (2) Acute pancreatitis: Status: Acute DS: Summary Hospital Course Hospital Course: from initial hpi: 53 year old female with history of htn, hypothyroidism, chronic hypochromic microcytic anemia, hld, hx of schatzki's ring, diverticular disease presented to the ED via EMS after being found confused at home. On exam, pt is notably confused oriented to self only and speaking nonsensically but answers some simple questions appropriately. Per nursing and report pt has been reporting abd pain with nausea and vomiting x several days with decreased PO intake. Pt found to be confused early this morning and called EMS. On arrival, notably aggitated, tachycardic to 105 and tachypneic to 40. She was hypertensive to 203/121 with improvement to 154/106 on admissin following administration of IV labetalol and hydralazine. No fevers or hypoxia. She has a leukocytosis 28.4, H/H above baseline at 15.1/44.5% suspect some degree of hemoconcentration. Renal function consistent with baseline. Lytes significant for K 2.5, O2 21. Initial lactic acid 2.6, repeat 1.4. Total bilirubin 1.1, AST 99, ALT 53. Total CK 2171. Triglycerides 141. Beta hydroxybutyrate 0.38. TSH 0.05, free T4 pending. Lipase 71. Urinalysis significant for 2+ blood, 2+ protein, glucose, otherwise unremarkable. No evidence of UTI. Urine tox screen positive only for THC otherwise unremarkable. Ethyl alcohol level undetectable. Negative for COVID-19, influenza. Head CT negative for any acute intracranial abnormality. CT abdomen/pelvis with IV contrast shows acute pancreatitis without evidence of pancreatic necrosis or drainable fluid collections possible that some of the changes in the pancreas could be secondary to adjacent colonic diverticulitis. Diverticulitis noted with some mild fat stranding around the mid and distal descending colon. There is cholelithiasis without cholecystitis. In the ED, has received a total of 15 mg IV labetalol, 5 mg IV hydralazine with improvement in blood pressure as above. 40 mEq IV potassium, 3 L IV NS as well as cefepime, 2 g IV magnesium, and IV Dilaudid for pain. She is also required a total of 3 mg IV lorazepam due to acute agitation. She will be admitted for further management of dehydration due to decreased PO intake secondary to acute pancreatitis/diverticulitis and encephalopathy of unclear etiology. hospital course: Patient was admitted for acute recurrent pancreatitis with unclear etiology. She was treated with IV fluids and IV opiates. Pain improved. Patient was able to tolerate solid diet. She will be discharged home with referral to Gastroenterology to determine etiology. She was also treated for sepsis due to acute diverticulitis, will be discharged on 5 more days of levaquin. Patient presented with acute metabolic encephalopathy. Mental status back to baseline. Likely combination of acute respiratory alkalosis, sepsis. Acute hypokalemia was replaced. Acute rhabdomyolysis resolved with IV hydration. For hypertension was continued on amlodipine, lisinopril, hydrochlorothiazide. For hypothyroidism was continued on Synthroid. Patient is feeling better will be discharged home. Time Attestation Discharge Coordination Time (in mins): 35 Quality: Safe Use of Opioids Does Pt have an Active Cancer Diagnosis on the Problem List?: No Quality: Stroke Does the patient have a stroke diagnosis?: No Physical Exam Vital Signs: Vital Signs: Last Vital Signs Temp 98.7 F 11/22/23 11:25 Pulse 67 11/22/23 11:25 Resp 20 11/22/23 11:25 BP 150/84 H 11/22/23 11:25 Pulse Ox 100 11/22/23 11:25 O2 Del Method Room Air 11/22/23 11:25 BMI result Body Mass Index 32.4 General: AO X 3, no acute distress Resp: CTA bilateral, no accessory muscles used CVS: S1,S2,RRR GI: soft, non tender, non distended Neuro: motor grossly intact, alert DS: Data Data Completed and Pending Completed studies during hospitalization [Text1]: Procedures Transfusion of Nonautologous Red Blood Cells into Peripheral Vein, Percutaneous Approach (10/17/21) Labs on day of discharge: Laboratory Results - last 24 hr 11/22/23 06:40 WBC 7.7 RBC 4.11 L Hgb 10.1 L Hct 30.5 L MCV 74.2 L MCH 24.6 L MCHC 33.1 RDW 15.9 Plt Count 235 MPV 11.4 Immature Gran % (Auto) 0.5 H Neut % (Auto) 53.1 Lymph % (Auto) 33.4 Carroll % (Auto) 9.2 Eos % (Auto) 3.0 Baso % (Auto) 0.8 Lymph # (Auto) 2.6 Carroll # (Auto) 0.7 Eos # (Auto) 0.2 Baso # (Auto) 0.1 Abs Immat Gran (auto) 0.04 H Absolute Neuts (auto) 4.1 Absolute Nucleated RBC 0.000 Nucleated RBC % (auto) 0.0 Sodium 139 Potassium 3.1 L Chloride 106 Carbon Dioxide 26 Anion Gap 10 L BUN 6 L Creatinine 0.75 Estim Creat Clear Calc 96.4 Estimated GFR > 60 Random Glucose 89 Calcium 8.3 L Preliminary micro results at discharge 11/20/23 11:46 CSF Culture - Preliminary Cerebrospinal Fluid No growth after 2 days 11/19/23 05:33 Blood Culture - Preliminary Blood - Venous No growth after 48 hours. 11/19/23 05:33 Blood Culture - Preliminary Blood - Venous No growth after 48 hours. Discharge Plan Discharge Anticipated Discharge Date/Time: 11/22/23 13:06 Patient Disposition: Home, Self-Care Discharge Diagnosis: acute pancreatitis, ams Referrals: Josette Stuart NP [Primary Care Provider] - 1 Week Nancie Barney MD [Physician] - 1 Week (pacnreatitis) Discharge Medications: Continued gabapentin 300 mg Capsule 300 mg PO DAILY@1200 omeprazole 20 mg Capsule,Delayed Release(Dr/Ec) 20 mg PO BID@0630,1630 hydroxyzine pamoate 25 mg Capsule 50 mg PO BEDTIME PRN (Reason: Anxiety) amlodipine 10 mg Tablet 10 mg PO DAILY gabapentin 400 mg Capsule 400 mg PO BID@0900,2100 levothyroxine 175 mcg Tablet 175 mcg PO DAILY@0600 prazosin 5 mg Capsule 5 mg PO BEDTIME cetirizine 10 mg Tablet 10 mg PO DAILY sucralfate [Carafate] 100 mg/mL Suspension 10 ml PO BID@0630,1630 lisinopril-hydrochlorothiazide 20-12.5 mg Tablet 1 tab PO DAILY simvastatin 5 mg tablet 5 mg PO BEDTIME Discharge Orders: Discharge Order (Routine); Ordered 11/22/23 Ordered By: Earl Herman Diet: Advance to usual diet Activity on Discharge: As tolerated Stand Alone Forms: Patient Portal Discharge page Print Language: Pashto Care Plan Goals: recovery Health Concerns: recurretn pancreatitis Plan of Treatment: resolved, follow up with gi to determine etiology Assessment: see above
--- NOTE | 2023-11-22 13:32 | MHC.CM.PN ---
Pt is medically cleared for D/C home self-care, pts daughter to transport her home.
[2023-11-23 12:59] LABS: VDRL Qualitative CSF Nonreactive (Nonreactive)
[2023-11-26 21:28] LABS: Lyme IgG CSF Immunoblot NO BANDS DETECTED; Lyme IgM CSF Immunoblot NO BANDS DETECTED
== END 2023-11-22 14:35 | disposition home or self-care (01) | DRG 282 ==
LOC: HO.ED 09:46 → HO.EDOVER 11:06 → HO.IMC 13:19
PROVIDERS: Student in an Organized Health Care Education/Training Program; Admitting Provider Physician Assistant; Emergency Provider Emergency Medicine; PCP Nurse Practitioner Family; Visit Provider Internal Medicine
DX: K85.90 Acute pancreatitis without necrosis or infection, unspecified (principal); G93.41 Metabolic encephalopathy; E87.4 Mixed disorder of acid-base balance; M62.82 Rhabdomyolysis; R65.10 Systemic inflammatory response syndrome (SIRS) of non-infectious origin without acute organ dysfunction; E86.0 Dehydration; E03.9 Hypothyroidism, unspecified; I10 Essential (primary) hypertension; E87.6 Hypokalemia; K57.32 Diverticulitis of large intestine without perforation or abscess without bleeding; F17.210 Nicotine dependence, cigarettes, uncomplicated; Z71.6 Tobacco abuse counseling; Z20.822 Contact with and (suspected) exposure to COVID-19; Z79.890 Hormone replacement therapy; Z88.0 Allergy status to penicillin; Z79.899 Other long term (current) drug therapy
CPT/HCPCS: 36415; 62328; 70450; 74176; 74177; 80048; 80053; 80061; 80143; 80179; 80202; 80307; 81001; 82010; 82140; 82550; 82803; 82945; 83605; 83690; 83735; 84157; 84439; 84443; 85025; 85610; 86592; 86617; 86695; 86696; 87015; 87040; 87070; 87205; 87483; 87497; 87502; 87635; 89051; 93005; 99285; C9113; J0133; J0360; J0692; J1170; J1650; J1920; J2060; J2185; J2405; J2765; J3010; J3370; J3475; J3480; J7120; Q9967

== ENCOUNTER → 2023-11-19 04:18 | Outpatient (BNV) | payer MEDICAID, SELFPAY | PROVIDERS: Emergency Provider Emergency Medicine; PCP Nurse Practitioner Family; Visit Provider Internal Medicine Cardiovascular Disease | DX: R00.0 Tachycardia, unspecified (principal) | CPT/HCPCS: 93010 ==

== ENCOUNTER 2023-11-19 10:34 | Outpatient (BNV) | payer MEDICAID, SELFPAY | END 2023-11-20 12:00 | PROVIDERS: Admitting Provider Physician Assistant; Emergency Provider Emergency Medicine; PCP Nurse Practitioner Family; Visit Provider Physician Assistant Surgical | DX: G93.41 Metabolic encephalopathy (principal) | CPT/HCPCS: 62328 ==

== ENCOUNTER → 2023-11-19 10:34 | Outpatient (BNV) | payer MEDICAID, SELFPAY | PROVIDERS: Admitting Provider Physician Assistant; Emergency Provider Emergency Medicine; PCP Nurse Practitioner Family; Visit Provider Physician Assistant | DX: G93.41 Metabolic encephalopathy (principal); K85.90 Acute pancreatitis without necrosis or infection, unspecified | CPT/HCPCS: 99223; 99232; 99239 ==

== ENCOUNTER → 2023-11-19 10:34 | Outpatient (BNV) | payer MEDICAID, SELFPAY | PROVIDERS: Admitting Provider Physician Assistant; Emergency Provider Emergency Medicine; PCP Nurse Practitioner Family; Visit Provider Psychiatry & Neurology Neurology | DX: G93.41 Metabolic encephalopathy (principal); M62.82 Rhabdomyolysis; E87.6 Hypokalemia; E86.0 Dehydration; K85.90 Acute pancreatitis without necrosis or infection, unspecified | CPT/HCPCS: 99222 ==

== ENCOUNTER → 2023-11-19 10:34 | Outpatient (BNV) | payer MEDICAID, SELFPAY | PROVIDERS: Admitting Provider Physician Assistant; Emergency Provider Emergency Medicine; PCP Nurse Practitioner Family; Visit Provider Physician Assistant Surgical | DX: C67.9 Malignant neoplasm of bladder, unspecified (principal); N13.30 Unspecified hydronephrosis | CPT/HCPCS: 50432; 62328; 99499 ==

== ENCOUNTER 2024-01-01 08:24 | Outpatient (AMB) | payer MEDICARE, MEDICAID, SELFPAY ==
--- NOTE | 2024-01-01 08:25 | MHC.OFFVIS ---
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 The patient is doing well with no complaints. Colposcopy/biopsy/ECC done in 04/20 , the pathology showed the following: A. Cervix, 1 o'clock, biopsy: Squamous mucosa within normal limits; no endocervical component seen; negative for squamous intraepithelial lesion. B. Cervix, 11 o'clock, biopsy: Squamous mucosa within normal limits; no endocervical component seen; negative for squamous intraepithelial lesion. C. Endocervix, curettage: High-grade squamous intraepithelial lesion (FELICITA 2). COMMENT: Note is made of the patient's cervical biopsy ([id number]; FELICITA 1-2) that correlates with the above findings LEEP cone with post cone ECC was scheduled initially in May of 2023 then it was canceled by the patient's because she developed other health issues [facility] Medical History Foreign body (FB) in soft tissue Personal history of nicotine dependence Hyperlipidemia Nausea & vomiting Hypochromic microcytic anemia Obesity due to excess calories Hypothyroidism Osteoarthritis Essential hypertension Surgical History History of hernia surgery History of shoulder surgery History of tonsillectomy History of colonoscopy History of esophagogastroduodenoscopy (EGD) History of carpal tunnel release Family History Father Lung cancer Mother Congestive heart failure Type 2 diabetes mellitus Social History Household Members: Family Household Members Other:: 2 Housing: House Housing Other:: sober community Do you presently have visiting nurse or other home services: No Alcohol intake: former Comment: patient is 1:1 supervision Patient Tobacco Use Status: Never used Tobacco Tobacco use type: Cigarette Years Smoked: 20 Substance Use Type: Marijuana service: No Current occupational status: employed Female Reproductive History Menstrual Age of Menarche: 11 Review of Systems Const All systems reviewed & are unremarkable except as noted in HPI and below Reports as per HPI and Reports no additional complaints GI Reports no additional complaints Reports no additional complaints Telehealth Telehealth Telehealth Platform: Telephone Location of provider rendering services: practice address Location of patient: address on file Patient Identification confirmed using: Name, : Yes Telehealth method: voice only Patient verbally consented to treatment: Yes Patient verbally consented to billing insurance company: Yes Patient informed of any privacy concerns related to visit: Yes Assessment & Plan Assessment & Plan (1) FELICITA II (cervical intraepithelial neoplasia II): Code(s): N87.1 - Moderate cervical dysplasia Category: Medical Plan: I Discussed with the patient the pathology results of the colposcopy biopsies & endocervical curettage ( moderate dysplasia-FELICITA 2). Discussed with the patient the sensitivity specificity, positive and negative predictive value in detecting cervical cancer in addition discussed the regression, persistence and progression rates. Addition discussed with the patient the risk of progression to cancer and importance of prompt treatment without any further delay in order to prevent possible progression to severe dysplasia or cancer. Per ASCCP guidelines, 2 options of management were discussed with the patient including either observation with HPV based screening and colposcopy biopsy at 6 months and 12 months versus a diagnostic excisional procedures, which is the preferred method of management. The patient is concerned more about the progression of FELICITA 2 to cancer and she decided to proceed with a LEEP, possible cone with post cone ECC, all the pros and cons and risks and benefits of the procedure were discussed with the patient, the patient verbalized understanding and agreed with the plan. Will schedule LEEP cone was post cone ECC. Discussed with the patient the procedure, its benefits and risks including bleeding, infection, possible need for blood transfusion with all its risk ( HIV, syphilis, Hepatitis, anaphylaxis shock, others..), injury to bladder, rectum, possible re-excision for positive margins, potential need for hysterectomy, possible future negative impact on fertility including ( cervical stenosis, incompetence , increase risk for c section 2ndary to cervical scarring and failure of dilatation), possible positive margin necessitating re-excision. Also discussed the patient options of anesthesia either paracervical block versus IV sedation/MAC, prefers to proceed with IV sedation/MAC. All questions answered, the patient verbalized understanding. I spent a total of 20 minutes reviewing the chart, talking to the patient via phone and documenting in the medical record. Coding Level of Care Code Tele Est Pt Level 1 (55739) Diagnoses FELICITA II (cervical intraepithelial neoplasia II) N87.1
== END 2024-01-01 16:08 | disposition home or self-care (01) ==
LOC: HO.HWS 08:24
PROVIDERS: PCP Nurse Practitioner Family; Visit Provider Obstetrics & Gynecology
DX: N87.1 Moderate cervical dysplasia (principal)
CPT/HCPCS: 99211

== ENCOUNTER → 2024-01-01 08:24 | Outpatient (BNVA) | payer MEDICAID, SELFPAY | PROVIDERS: PCP Nurse Practitioner Family; Visit Provider Obstetrics & Gynecology ==

== ENCOUNTER 2024-01-22 12:17 | Day surgery (SDC) | payer MEDICARE, MEDICAID, SELFPAY ==
--- NOTE | 2024-01-20 15:12 | HO.ANESPROP2 ---
Documented by User: Nellie Villatoro NP 01/20/24 15:16 HPI - Anesthesia Eval Consult details Narrative: 53yo F for LEEP,poss loop electric excision,poss loop electrical,cone and post endocervical curettage [facility] admit 10/2023 hospital course: Patient was admitted for acute recurrent pancreatitis with unclear etiology. She was treated with IV fluids and IV opiates. Pain improved. Patient was able to tolerate solid diet. She will be discharged home with referral to Gastroenterology to determine etiology. She was also treated for sepsis due to acute diverticulitis, will be discharged on 5 more days of levaquin. Patient presented with acute metabolic encephalopathy. Mental status back to baseline. Likely combination of acute respiratory alkalosis, sepsis. Acute hypokalemia was replaced. Acute rhabdomyolysis resolved with IV hydration. For hypertension was continued on amlodipine, lisinopril, hydrochlorothiazide. For hypothyroidism was continued on Synthroid. Patient is feeling better will be discharged home. PMFSH Active Problems Active Problems: All Active Problems Hypokalemia (Acute) Acute pancreatitis (Acute) Screening for STD (sexually transmitted disease) (Acute) FELICITA II (cervical intraepithelial neoplasia II) (Acute) ASCUS with positive high risk HPV cervical (Acute) Schatzki's ring (Acute) Diverticular disease (Acute) Hemorrhoids (Acute) Pulmonary nodule (Acute) Incarcerated paraesophageal hernia (Acute) Hiatal hernia (Acute) Iron deficiency anemia (Acute) Anemia (Acute) Abdominal pain (Acute) Anemia (Acute) Foreign body (FB) in soft tissue (Acute) Personal history of nicotine dependence (Acute) Nausea & vomiting (Acute) Hypothyroidism (Acute) Obesity due to excess calories (Acute) Past Medical History Medical History Foreign body (FB) in soft tissue Personal history of nicotine dependence Hyperlipidemia Nausea & vomiting Hypochromic microcytic anemia Obesity due to excess calories Hypothyroidism Osteoarthritis Essential hypertension Family History Family History Father Lung cancer Mother Congestive heart failure Type 2 diabetes mellitus Family history of problems with anesthesia: No Surgical History Surgical History History of hernia surgery History of shoulder surgery History of tonsillectomy History of colonoscopy History of esophagogastroduodenoscopy (EGD) History of carpal tunnel release History of Problems with Anesthesia: No Social History Social History Household Members: Family Household Members Other:: 2 Housing: House Housing Other:: sober community Do you presently have visiting nurse or other home services: No Alcohol intake: former Comment: patient is 1:1 supervision Patient Tobacco Use Status: Current everyday Tobacco user Tobacco use type: Smokeless Tobacco Years Smoked: 20 Use of substances other than those prescribed or required for medical reasons: Yes Substance Use Type: Marijuana Substance Use Type Other:: vapes THC Substance Use Frequency: Daily Are you DNR?: No Advance Directives: No Advance Directives Information Provided: Yes service: No Current occupational status: employed Meds Allergies Allergy/AdvReac Type Severity Reaction Status Date / Time Penicillins Allergy Severe Anaphylaxis Verified 01/22/24 12:53 Home Medications ?Medication ?Instructions ?Recorded ?Confirmed ?Last Taken ?Type simvastatin 5 mg tablet 5 mg PO BEDTIME 11/08/20 01/22/24 Unknown History gabapentin 300 mg capsule 300 mg PO BID 10/17/21 01/22/24 01/22/24 08:00 History hydroxyzine pamoate 25 mg capsule 50 mg PO BEDTIME PRN Anxiety 10/17/21 01/22/24 Unknown History omeprazole 20 mg capsule,delayed 20 mg PO BID@0630,1630 10/17/21 01/22/24 01/22/24 08:00 History release amlodipine 10 mg tablet 10 mg PO DAILY 11/19/23 01/22/24 01/22/24 08:00 History cetirizine 10 mg tablet 10 mg PO DAILY 11/19/23 01/22/24 Unknown History gabapentin 400 mg capsule 400 mg PO BEDTIME 11/19/23 01/22/24 Unknown History levothyroxine 175 mcg tablet 175 mcg PO DAILY@0600 11/19/23 01/22/24 01/22/24 08:00 History lisinopril 20 1 tab PO DAILY 11/19/23 01/22/24 Unknown History mg-hydrochlorothiazide 12.5 mg tablet prazosin 5 mg capsule 5 mg PO BEDTIME 11/19/23 01/22/24 Unknown History sucralfate 100 mg/mL oral 10 ml PO BID@0630,1630 11/19/23 01/22/24 Unknown History suspension (Carafate) duloxetine 10 mg PO BEDTIME 01/22/24 01/22/24 Unknown History Exam Pertinent Lab Results Pertinent Lab Results: Laboratory Tests 11/22/23 06:40 WBC 7.7 Hgb 10.1 L Hct 30.5 L Plt Count 235 Narrative Narrative: EKG 10/2023 Vent. Rate : 104 BPM Atrial Rate : 104 BPM P-R Int : 130 ms QRS Dur : 080 ms QT Int : 392 ms P-R-T Axes : 016 045 051 degrees QTc Int : 515 ms Baseline wander Sinus tachycardia Otherwise normal ECG When compared with ECG of 18-OCT-2023 23:10, Vent. rate has increased BY 39 BPM Non-specific change in ST segment in Anterior leads QT has lengthened Assessment and Plan Assessment Anesthesia Assessment: Chart Reviewed Final Anesthetic Review Family History of Problems with Anesthesia: No History of Problems with Anesthesia: No Documented by User: Vangie Rodríguez MD 01/22/24 13:44 PMFSH Past Medical History Medical History Foreign body (FB) in soft tissue Personal history of nicotine dependence Hyperlipidemia Nausea & vomiting Hypochromic microcytic anemia Obesity due to excess calories Hypothyroidism Osteoarthritis Essential hypertension Family History Family History Father Lung cancer Mother Congestive heart failure Type 2 diabetes mellitus Surgical History Surgical History History of hernia surgery History of shoulder surgery History of tonsillectomy History of colonoscopy History of esophagogastroduodenoscopy (EGD) History of carpal tunnel release Social History Social History Household Members: Family Household Members Other:: 2 Housing: House Housing Other:: sober community Do you presently have visiting nurse or other home services: No Alcohol intake: former Comment: patient is 1:1 supervision Patient Tobacco Use Status: Current everyday Tobacco user Tobacco use type: Smokeless Tobacco Years Smoked: 20 Use of substances other than those prescribed or required for medical reasons: Yes Substance Use Type: Marijuana Substance Use Type Other:: vapes THC Substance Use Frequency: Daily Are you DNR?: No Advance Directives: No Advance Directives Information Provided: Yes service: No Current occupational status: employed Meds Allergies Allergy/AdvReac Type Severity Reaction Status Date / Time Penicillins Allergy Severe Anaphylaxis Verified 01/22/24 12:53 Home Medications ?Medication ?Instructions ?Recorded ?Confirmed ?Last Taken ?Type simvastatin 5 mg tablet 5 mg PO BEDTIME 11/08/20 01/22/24 Unknown History gabapentin 300 mg capsule 300 mg PO BID 10/17/21 01/22/24 01/22/24 08:00 History hydroxyzine pamoate 25 mg capsule 50 mg PO BEDTIME PRN Anxiety 10/17/21 01/22/24 Unknown History omeprazole 20 mg capsule,delayed 20 mg PO BID@0630,1630 10/17/21 01/22/24 01/22/24 08:00 History release amlodipine 10 mg tablet 10 mg PO DAILY 11/19/23 01/22/24 01/22/24 08:00 History cetirizine 10 mg tablet 10 mg PO DAILY 11/19/23 01/22/24 Unknown History gabapentin 400 mg capsule 400 mg PO BEDTIME 11/19/23 01/22/24 Unknown History levothyroxine 175 mcg tablet 175 mcg PO DAILY@0600 11/19/23 01/22/24 01/22/24 08:00 History lisinopril 20 1 tab PO DAILY 11/19/23 01/22/24 Unknown History mg-hydrochlorothiazide 12.5 mg tablet prazosin 5 mg capsule 5 mg PO BEDTIME 11/19/23 01/22/24 Unknown History sucralfate 100 mg/mL oral 10 ml PO BID@0630,1630 11/19/23 01/22/24 Unknown History suspension (Carafate) duloxetine 10 mg PO BEDTIME 01/22/24 01/22/24 Unknown History Exam Airway Mallampati Class: II TM Dist: >3cm Neck ROM: Full Loose/Missing/Broken Teeth: No Heart: RRR Lungs: CTA Assessment and Plan Assessment Anesthesia Assessment: Anesthesia Plan Discussed Final Anesthetic Review NPO: Yes ASA Class: II Final Preanesthetic Review: Meds/Allgs Chart Reviewed, Consent Obtained/Reviewed and Anes Risks/Benef Reviewed Patient Risk: Low Procedure Risk: Low Anesthetic Plan Anesthetic Plan: GA Disposition: Standard PACU
[2024-01-22 12:47] VITALS: BMI 31.5
[2024-01-22 12:59] VITALS: BP 120/80; PULSE 76; RESP 18; TEMP 37.2; O2SAT 95
[2024-01-22] MEDS: Lactated Ringers 1,000 ML 100 ML IVCONT (13:11)
[2024-01-22 13:17] LABS: Anion Gap 14 (12-20); Blood Urea Nitrogen 12 mg/dL (9-16); Calcium 9.3 mg/dL (8.4-10.2); Carbon Dioxide 23 mmol/L (22-29); Chloride 108 mmol/L (96-108); Creatinine Clr Calc Pharmacy 58.3; Estimated Glomerular Filt Rate 46; Glucose Fasting 100 mg/dL (60-99); Sodium 141 mmol/L (135-145)
--- NOTE | 2024-01-22 13:51 | MHC.SHP ---
Pre-Procedural Eval Section A - 24 Hr Update-Section A only Date of Service: 01/22/24 The patient is an INPATIENT: No Changes since office visit: No Cold of Flu in the past 2 weeks, No New Medical Problems, No Changes in Medication and No Patient answered all questions The patient has been examined within 24 hours of the surgical procedure. The History & Physical has been completed within 30 days and I have reviewed it.: Yes Section B - Complete if H&P > 30 days Chief Complaint: Moderate cervical dysplasia Allergies: Allergies Allergy/AdvReac Type Severity Reaction Status Date / Time Penicillins Allergy Severe Anaphylaxis Verified 01/22/24 12:53 Plan Diagnosis/Plan: Unchanged I have reviewed the history and physical and performed a pertinent physical examination on my patient. No changes have occurred unless specified. Time Spent With Patient Time: Total time managing care of this patient today ____ minutes.
--- NOTE | 2024-01-22 14:19 | P.BOP_ITS ---
Brief Operative Note Date of Service: 01/22/24 Pre-op diagnosis: FELICITA 2 on ECC Post-op diagnosis: same Procedure: LEEP CONE, top-hat excision with post CONE ECC Surgeon: Ludin Connor MD Anesthesia: GLMA and other (Paracervical block) Was an Facilities Mechanical Design Engineer used for this Procedure?: No Estimated blood loss (mL): 0 Pathology: other (Cervical cone, top-hat, Post cone ECC) Condition: stable Disposition: other (Home)
--- NOTE | 2024-01-22 14:19 | P.OP_ITS ---
Operative Note Operative Note Date of Service: 01/22/24 Narrative: Pre op diagnosis: FELICITA 2 with positive ECC Operation: Colposcopy, Loop electrical excision procedure cone, top hat endocervical excision, post cone ECC Postop diagnosis: the same Quantitative blood loss: 50 cc Surgeon: Ludin Connor MD, FACOG Tomography Technologist: None Pathology: Cervical cone, top-hat endo cervical excision, endo cervical curettage Complications: none Anesthesia: GLMA and Para cervical block Procedure: The patient was put in a dorsal lithotomy position, scrubbed and draped in the usual sterile fashion. A speculum was inserted inside the patient's vagina. The cervix is assessed using the colposcope with acetic acid , the lesions were seen, and at least 1 cm of the squamocolumnar junction was observed. 20 x 5 mm size loop was selected based upon the diameter of the lesion. Lugol solution was used to outline the lesions and area of the transformation zone order to be removed 10 cc of xylocaine with epinephrine were injected submucosally into the surface of the cervix (ectocervix) at the 3, 6, 9, and 12 o'clock positions. The electrosurgical generator is set at 40 pereira on blend 1. The loop is carefully passed simultaneously around and under the transformation zone, in order to ensure excising it making sure the lesion is at least 5 mm far from the specimen margins . The loop was allowed to glide through the cervix from one side to the other, allowing the cutting current to divide the tissue. Since ECC was positive and the entire endo cervical canal was not visualized well, endo cervical disease could be beyond the reach of the loop, additional tissue was excised from this area with a smaller-diameter loop , endo cervical top-hat excision was performed An endo cervical curettage is performed following completion of excision, and hemostasis is obtained with a Ball electrode or regular tip cautery. At the end, Monsel's solution was applied to the cone bed. The patient tolerated the procedure well and, all instruments were taken out of the patient vaginal cavity, and the patient was transferred to the PACU in stable condition.
[2024-01-22 14:24] VITALS: BP 115/64; PULSE 66; RESP 18; TEMP 36.6; O2SAT 92
[2024-01-22 14:29] VITALS: BP 103/70; PULSE 56; RESP 16; O2SAT 100
[2024-01-22 14:34] VITALS: BP 112/70; PULSE 54; RESP 16; O2SAT 100
[2024-01-22 14:39] VITALS: BP 109/65; PULSE 52; RESP 16; O2SAT 100
[2024-01-22 14:54] VITALS: BP 119/80; PULSE 62; RESP 18; TEMP 36.9; O2SAT 98
== END 2024-01-22 15:24 | disposition home or self-care (01) ==
PROVIDERS: Nurse Practitioner; PCP Nurse Practitioner Family; Visit Provider Obstetrics & Gynecology
PROC: 0UBC7ZZ Excision of Cervix, Via Natural or Artificial Opening (ICD-10-PCS; CPT 57522; principal; 2024-01-22 13:30)
DX: N87.1 Moderate cervical dysplasia (principal); I10 Essential (primary) hypertension; E03.9 Hypothyroidism, unspecified; E78.5 Hyperlipidemia, unspecified; E87.6 Hypokalemia; D64.9 Anemia, unspecified; M19.90 Unspecified osteoarthritis, unspecified site; Z79.899 Other long term (current) drug therapy; Z88.0 Allergy status to penicillin; Z98.890 Other specified postprocedural states; Z87.891 Personal history of nicotine dependence
CPT/HCPCS: 57461; 36415; 80048; 88305; 88307; 88342; 88360; J1100; J1885; J2250; J2405; J2704; J3010

== ENCOUNTER → 2024-01-22 12:17 | Outpatient (BNV) | payer MEDICARE, MEDICAID, SELFPAY | PROVIDERS: PCP Nurse Practitioner Family; Visit Provider Obstetrics & Gynecology | DX: N87.1 Moderate cervical dysplasia (principal) | CPT/HCPCS: 57522 ==

== ENCOUNTER 2024-02-05 08:44 | Outpatient (AMB) | payer MEDICARE, MEDICAID, SELFPAY ==
--- NOTE | 2024-02-05 08:56 | MHC.OFFVIS ---
Intake Visit Reasons: post op Allergies Penicillins Allergy (Severe, Verified 01/22/24 12:53) Anaphylaxis HPI Comments Details: The patient is presenting for follow-up post LEEP cone, top-hat excision and post cone ECC. The patient has no complaints. The patient had FELICITA 2 on ECC. The pathology showed the following: A. Cervix, cone excision: Inflamed squamous mucosa with reactive changes; definitive endocervical epithelium not identified. B. Cervix, top hat, excision: - High grade squamous intraepithelial lesion (FELICITA 2); extending to margin. - Background inflamed squamous and endocervical mucosa with reactive changes. C. Endocervix, post cone, curettage: Superficial fragments of squamous epithelium with reactive changes; no endocervical epithelium identified [facility] Medical History Foreign body (FB) in soft tissue Personal history of nicotine dependence Hyperlipidemia Nausea & vomiting Hypochromic microcytic anemia Obesity due to excess calories Hypothyroidism Osteoarthritis Essential hypertension Surgical History History of hernia surgery History of shoulder surgery History of tonsillectomy History of colonoscopy History of esophagogastroduodenoscopy (EGD) History of carpal tunnel release Family History Father Lung cancer Mother Congestive heart failure Type 2 diabetes mellitus Social History Household Members: Family Household Members Other:: 2 Housing: House Housing Other:: sober community Do you presently have visiting nurse or other home services: No Alcohol intake: former Comment: patient is 1:1 supervision Patient Tobacco Use Status: Current everyday Tobacco user Tobacco use type: Smokeless Tobacco Years Smoked: 20 Substance Use Type: Marijuana service: No Current occupational status: employed Female Reproductive History Menstrual Age of Menarche: 11 Review of Systems Const All systems reviewed & are unremarkable except as noted in HPI and below Reports as per HPI and Reports no additional complaints GI Reports no additional complaints Reports no additional complaints Physical Exam General: Yes no CVA tenderness External Female Exam: normal external appearance and normal appearance of the urethra Speculum Exam - Vagina: normal appearance of the vagina, normal palpation, no lesions and no masses Speculum Exam - Cervix: normal appearance of the cervix, normal palpation, no lesions, no masses, nontender and Other cervical findings present (Endocx close to the edge of the remaining tissue of the cx/vagina) Bimanual exam- vagina & uterus: normal bimanual exam, normal palpation, uterine size normal, normal palpation, uterine shape normal, No Cervical tenderness present and non-tender Bimanual Exam- Adnexa, other: normal adnexae Back/Spine/Pelvis Back: no CVA tenderness Assessment & Plan Assessment & Plan (1) FELICITA II (cervical intraepithelial neoplasia II): Comment: Status post LEEP cone, top-hat excision with post cone ECC Positive margins Code(s): N87.1 - Moderate cervical dysplasia Category: Medical Plan: Discussed with the patient the finding on pelvic exam showing that the endocervical canal edge is very close to the remaining tissue of the cervix laterally and close to the vagina making a repeat LEEP might have a high probability with a positive margins. Discussed with the patient the procedure and the pathology with + margins. Discussed with the patient ASCCP treatment options include not limited to: either repeat LEEP versus hysterectomy versus 6 months follow-up with HPV based screening with colpo biopsy and ECC q 6 months. All the pros and cons risks benefits of each approach were discussed the patient and the patient decided to proceed hysterectomy. Discussed with the patient the different types of hysterectomies including, vaginal, laparoscopic assisted vaginal, robotic assisted laparoscopic,& abdominal with BSO. All pros, cons, r/b of each approach were discussed the patient including evidence that morbidity is less and recovery is shorter with minimally invasive approaches to hysterectomy. Discussed with the patient the lack of availability of the robot [employer] robot and/or minimally invasive tire builder specialist at [facility]. Will refer the patient to a minimally invasive gynecology surgery to a tertiary care center. Instructed the patient to call our office back in case a referral appointment is not scheduled, missed or canceled so that we will assist on rescheduling another appointment, the patient verbalized understanding agreed with the plan. Coding Level of Care Code Est Pt Level 3 (74629) Diagnoses FELICITA II (cervical intraepithelial neoplasia II) N87.1
== END 2024-02-05 09:51 | disposition home or self-care (01) ==
LOC: HO.HWS 08:44
PROVIDERS: PCP Nurse Practitioner Family; Visit Provider Obstetrics & Gynecology
DX: N87.1 Moderate cervical dysplasia (principal)
CPT/HCPCS: 99024

== ENCOUNTER → 2024-02-05 08:44 | Outpatient (BNVA) | payer MEDICARE, MEDICAID, SELFPAY | PROVIDERS: PCP Nurse Practitioner Family; Visit Provider Obstetrics & Gynecology | DX: N87.1 Moderate cervical dysplasia (principal); Z98.890 Other specified postprocedural states | CPT/HCPCS: 99212 ==

== ENCOUNTER 2024-03-28 16:49 | Emergency (ER) | payer MEDICARE, MEDICAID, SELFPAY ==
[2024-03-28] VITALS (7 sets, daily range): BP systolic 146–221; BP diastolic 80–110; PULSE 69–104; RESP 16–24; TEMP 36.4–36.9; O2SAT 96–100; BMI 32.0
--- NOTE | ~2024-03-28 | CT_ITS ---
EXAMINATION: CT ABDOMEN AND PELVIS WITH CONTRAST CLINICAL INFORMATION: Severe upper abdominal pain COMPARISON: CT abdomen/pelvis November 19, 2023 TECHNIQUE: Multiple axial images were obtained from the superior aspect of the liver through the pubic symphysis after the administration of 85 mL of intravenous Omnipaque. Images were evaluated on independent dedicated 3-D workstation and 3-D images were reconstructed with concurrent radiologist supervision and subsequently interpreted. Oral contrast was administered. This CT examination was performed using dose optimization techniques as appropriate, variously including the following: *Automated exposure control *Adjustment of mA and/or kV according to patient size (this includes techniques or standardized protocols for targeted exams where dose is matched to indication/reason for exam; i.e. extremities or head) *Use of iterative reconstruction technique DLP: 937 mGy-cm FINDINGS: LUNG BASES: The visualized lung bases are clear. CARDIOMEDIASTINUM: The visualized heart is normal in size without pericardial effusion. Mild coronary artery calcification. LIVER: Homogeneous in attenuation. Normal in size. GALLBLADDER: Cholelithiasis without CT evidence of cholecystitis. BILIARY SYSTEM: No intrahepatic or extrahepatic biliary dilation. PANCREAS: Homogeneous in attenuation. SPLEEN: Normal in size. GENITOURINARY: Bilateral kidneys demonstrate symmetric enhancement. No perinephric fluid collection. No renal calculi. No hydroureteronephrosis. ADRENAL GLANDS: Unremarkable. REPRODUCTIVE: Anteverted uterus. No solid adnexal masses. GASTROINTESTINAL: Postsurgical changes of gastric bypass. The visualized alimentary tract is normal in course. Diverticular disease without diverticulitis. No evidence of obstruction. APPENDIX: The appendix is seen in its entirety and is unremarkable. PERITONEUM: No pneumoperitoneum. No intra-abdominal fluid collection. VASCULATURE: The abdominal aorta is normal in course and caliber. LYMPH NODES: No pathologically enlarged abdominal or pelvic lymph nodes. SOFT TISSUES/MUSCULOSKELETAL: Fat containing ventral hernia with mild inflammatory changes within the herniated fat. CT/CT abdomen pelvis w IV con IMPRESSION: 1. No acute abdominal or pelvic pathology. 2. Fat-containing ventral hernia with mild inflammatory changes within the fat. 3. Cholelithiasis without CT evidence of cholecystitis. Fleischner guidelines were followed. Electronically signed by: Darwin Swanson DO 03/28/2024 09:40 PM EDT
--- NOTE | 2024-03-28 17:06 | ECG_ITS ---
Test Reason : PAIN Blood Pressure : / mmHG Vent. Rate : 076 BPM Atrial Rate : 076 BPM P-R Int : 138 ms QRS Dur : 086 ms QT Int : 448 ms P-R-T Axes : 051 033 068 degrees QTc Int : 504 ms Normal sinus rhythm Prolonged QT Abnormal ECG When compared with ECG of 19-NOV-2023 04:18, ST no longer elevated in Lateral leads Referred By: Wiley Freeman Electronically Signed By:EMMETT HICKS
[2024-03-28] MEDS: Pantoprazole Sodium 40 MG/10 ML VIAL IVPUSH (17:26)
[2024-03-28] MEDS: HYDROmorphone HCl 2 MG/ML VIAL IVPUSH (17:26)
[2024-03-28] MEDS: ondansetron HCL 4 MG/2 ML VIAL IVPUSH (17:27)
[2024-03-28] MEDS: 0.9 % Sodium Chloride 1,000 ML 999 ML IV (17:27)
--- NOTE | 2024-03-28 17:38 | ED_ITS ---
HPI - General Adult General Chief complaint: Abdominal Pain Stated complaint: pancreatic attack Time Seen by Provider: 03/28/24 17:03 Source: patient, RN notes reviewed and old records reviewed Mode of arrival: EMS Limitations: no limitations History of Present Illness ED Provider: Pete HPI narrative: 53-year-old female with past medical history significant for acute pancreatitis, Schatzki's ring, diverticular disease, hiatal hernia, hypothyroidism, obesity presents for evaluation abdominal pain. Patient reports that she developed severe upper abdominal pain around 2:30 p.m. today, about 3 hours prior to my evaluation. She reports that about an hour and a half prior to this she was out to eat with a friend and had ?a sandwich from [employer]. ? She reports persistent nausea vomiting, severe abdominal pain and she also had some diarrhea She states that she has had pancreatitis 3 times in the past and this feels similar. Denies any fevers or chills Patient describes her pain as ?burning. ? Her pain is a 10/ Related Data Home Medications ?Medication ?Instructions ?Recorded ?Confirmed simvastatin 5 mg tablet 5 mg PO BEDTIME 11/08/20 01/22/24 gabapentin 300 mg capsule 300 mg PO BID 10/17/21 01/22/24 hydroxyzine pamoate 25 mg capsule 50 mg PO BEDTIME PRN Anxiety 10/17/21 01/22/24 omeprazole 20 mg capsule,delayed 20 mg PO BID@0630,1630 10/17/21 01/22/24 release amlodipine 10 mg tablet 10 mg PO DAILY 11/19/23 01/22/24 cetirizine 10 mg tablet 10 mg PO DAILY 11/19/23 01/22/24 gabapentin 400 mg capsule 400 mg PO BEDTIME 11/19/23 01/22/24 levothyroxine 175 mcg tablet 175 mcg PO DAILY@0600 11/19/23 01/22/24 lisinopril 20 1 tab PO DAILY 11/19/23 01/22/24 mg-hydrochlorothiazide 12.5 mg tablet prazosin 5 mg capsule 5 mg PO BEDTIME 11/19/23 01/22/24 sucralfate 100 mg/mL oral 10 ml PO BID@0630,1630 11/19/23 01/22/24 suspension (Carafate) duloxetine 10 mg PO BEDTIME 01/22/24 01/22/24 Allergies Allergy/AdvReac Type Severity Reaction Status Date / Time Penicillins Allergy Severe Anaphylaxis Verified 03/28/24 17:13 Review of Systems 2 Constitutional: Constitutional: Denies body ache(s), Denies chills and Denies fever(s) Eyes: Eyes: Denies blurry vision ENT: Denies sore throat Cardiovascular: Cardiovascular: Denies chest pain and Denies dyspnea Respiratory: Respiratory: Denies cough and Denies dyspnea Gastrointestinal: Gastrointestinal: Reports abdominal pain, Denies hematochezia, Reports nausea and Reports vomiting Musculoskeletal: Musculoskeletal: Denies back pain Integumentary/Breasts: Skin/Breast: Denies rash PMFSH Past Medical History Medical History Foreign body (FB) in soft tissue Personal history of nicotine dependence Hyperlipidemia Nausea & vomiting Hypochromic microcytic anemia Obesity due to excess calories Hypothyroidism Osteoarthritis Essential hypertension Surgical History History of hernia surgery History of shoulder surgery History of tonsillectomy History of colonoscopy History of esophagogastroduodenoscopy (EGD) History of carpal tunnel release Family History Family History Father Lung cancer Mother Congestive heart failure Type 2 diabetes mellitus Social History Social History Household Members: Family Household Members Other:: 2 Housing: House Housing Other:: sober community Do you presently have visiting nurse or other home services: No Unable to assess alcohol history related to: Unknown Alcohol intake: former Comment: patient is 1:1 supervision Patient Tobacco Use Status: Current everyday Tobacco user Tobacco use type: Smokeless Tobacco Years Smoked: 20 Smoked in Last 30 Days: No Use of substances other than those prescribed or required for medical reasons: No Substance Use Type: Marijuana Advance Directives: No Advance Directives Information Provided: No Do you have a plan to hurt others: No Plan Patient : No service: No Current occupational status: employed Physical Exam ED Vital Signs: Vital Signs - 24 hr 03/28/24 17:00 03/28/24 17:01 03/28/24 17:10 Temperature 97.6 F 97.6 F Pulse Rate 76 104 H Respiratory Rate 24 H 22 H Blood Pressure 221/110 H 209/107 H 209/107 H Pulse Oximetry 100 98 Oxygen Delivery Method Room Air Room Air 03/28/24 19:25 03/28/24 20:06 03/28/24 20:38 Temperature 98.4 F Pulse Rate 69 69 Respiratory Rate 16 18 16 Blood Pressure 160/88 H 146/81 H Pulse Oximetry 100 96 Oxygen Delivery Method Room Air Room Air BMI result Body Mass Index 32.0 Const General: healthy appearing, alert, awake and acute distress (Nontoxic, but the patient is screaming in pain) severe Nutritional Appearance: well nourished Orientation/consciousness: patient oriented x3 HENMT Head: Yes normocephalic and Yes atraumatic Eyes Eyelids: Yes eyelids normal Conjunctivae: conjunctivae normal Sclerae: sclerae normal Corneas: corneas normal Pupils: Equal, round and reactive pupils present EOM: EOMs intact bilaterally Neck Neck: Yes full ROM Resp Effort & Inspection: normal respiratory effort, able to speak in complete sentences and not labored Cardio Rate: regular rate Rhythm: regular rhythm GI Inspection: No distended Palpation (GI): Soft to palpation, not firm, Tenderness to palpation present (GI) in the epigastrum and in the LUQ; not in the RUQ, Guarding due to palpation present (GI) in the LLQ and in the LUQ and not rigid Skin General skin exam: elasticity normal Neuro General: patient oriented x3 Cranial nerves: Yes Equal, round and reactive pupils present and Yes Bilaterally intact EOM present Cognition (Neuro): normal cognition Extrem Other: Moving all extremities well without any obvious deformities Course Reevaluation(s) Reevaluation #1: The patient was re-evaluated after sitting pain medication history is much more calm, her abdomen is soft, nondistended Time: 17:49 Reevaluation #2: The patient unfortunately left against medical advice prior to receiving the CT scan. I do not get a chance to attempt to dissuade her from leaving as I was unfortunately in with a critical patient. The patient's CT scan does not show any critical or life-threatening etiology Time: 21:46 Medications Administered Discontinued Medications Generic Name Dose Route Start Last Admin Trade Name Freq PRN Reason Stop Dose Admin Hydromorphone HCl 2 mg 03/28/24 17:06 03/28/24 17:26 Hydromorphone Hcl 2 Mg/Ml Vial IVPUSH 03/28/24 17:07 2 mg ONCE ONE Administration Protocol Hydromorphone HCl 1 mg 03/28/24 19:52 03/28/24 20:06 Hydromorphone Hcl 1 Mg/Ml Syringe IVPUSH 03/28/24 19:53 1 mg ONCE ONE Administration Protocol Sodium Chloride 1,000 mls @ 999 mls/hr 03/28/24 17:15 03/28/24 20:16 Ns IV 03/28/24 18:15 Infused .Q1H1M ITZEL Infusion Iohexol 100 ml 03/28/24 19:14 03/28/24 19:15 Iohexol 350 Mg/Ml 100 Ml Infus..Btl IV 03/28/24 19:15 85 ml ONCE ONE Administration Metoclopramide HCl 10 mg 03/28/24 19:52 03/28/24 20:07 Metoclopramide Hcl 10 Mg/2 Ml Vial IVPUSH 03/28/24 19:53 10 mg ONCE ONE Administration Ondansetron HCl 4 mg 03/28/24 17:06 03/28/24 17:27 Ondansetron Hcl 4 Mg/2 Ml Vial IVPUSH 03/28/24 17:07 4 mg ONCE ONE Administration Pantoprazole Sodium 40 mg 03/28/24 17:06 03/28/24 17:26 Pantoprazole Sodium 40 Mg/10 Ml Vial IVPUSH 03/28/24 17:07 40 mg ONCE ONE Administration Medical Decision Making Medical Decision Making MDM Narrative: 53-year-old female with past medical history as documented above presents for evaluation of abdominal pain, nausea vomiting and some diarrhea. She reports that her symptoms started 3 hours prior to arrival has a long history of acute pancreatitis. She also has a history of GERD. She did describe burning pain which could be consistent with GERD or peptic ulcer disease/ruptured ulcer. Plan for basic labs, CT scan of the abdomen pelvis given her degree of discomfort. Patient was medicated with IV fluids, Dilaudid, Zofran. Differential Diagnosis Differential Diagnoses: The differential diagnosis associated with the presentation includes Acute pancreatitis GERD Peptic ulcer disease Bowel perforation Small-bowel obstruction Diverticulitis Lab Data 03/28/24 17:53 03/28/24 17:53 Labs: Lab Results 03/28/24 03/28/24 Range/Units 17:53 19:29 WBC 9.8 (4.8-10.8) X10*3/uL RBC 4.64 (4.20-5.50) X10*6/uL Hgb 11.9 L (12.0-16.0) g/dl Hct 36.9 L D (37.0-47.0) % MCV 79.5 L (80.0-98.0) fL MCH 25.6 L (27.0-33.0) pg MCHC 32.2 (31.0-35.0) g/dl RDW 14.9 (11.0-16.0) % Plt Count 262 (160-400) X10*3/uL MPV 10.8 (9.4-12.3) fL Immature Gran % (Auto) 0.3 (0.0-0.4) % Neut % (Auto) 87.5 H (45-73) % Lymph % (Auto) 7.3 L (20-40) % [place] % (Auto) 4.1 (2-11) % Eos % (Auto) 0.4 (0-4) % Baso % (Auto) 0.4 (0-2) % Lymph # (Auto) 0.7 L (1.2-4.9) X10*3/uL [place] # (Auto) 0.4 (0.1-1.2) X10*3/uL Eos # (Auto) 0.0 (0.0-0.4) X10*3/uL Baso # (Auto) 0.0 (0.0-0.2) X10*3/uL Abs Immat Gran (auto) 0.03 (0.00-0.03) X10*3/uL Absolute Neuts (auto) 8.6 H (2.0-8.3) x10*3/uL Absolute Nucleated RBC 0.000 (0.0-0.012) X10*3/uL Nucleated RBC % (auto) 0.0 (0.0-0.2) /100WBC PT 11.0 L (11.1-13.3) SEC INR 0.9 (0.9-1.1) APTT 28.9 (26.0-36.8) SEC Sodium 144 (135-145) mmol/L Potassium 3.4 (3.3-5.1) mmol/L Chloride 110 H (96-108) mmol/L Carbon Dioxide 25 (22-29) mmol/L Anion Gap 12 (12-20) BUN 14 (9-16) mg/dL Creatinine 0.98 (0.5-1.4) mg/dL Estim Creat Clear Calc 73.2 Estimated GFR 59 Random Glucose 140 H (60-115) mg/dL Calcium 9.4 (8.4-10.2) mg/dL Total Bilirubin 0.4 (0.0-1.0) mg/dL AST 16 (5-31) U/L ALT 11 (0-31) U/L Alkaline Phosphatase 79 (39-117) U/L Troponin I High Sens 3.6 (<3.5-17.0) ng/L Total Protein 6.8 (6.5-8.0) g/dL Albumin 4.0 (3.5-5.0) g/dL Lipase 13 (8-78) U/L Urine Color Yellow Urine Appearance Clear Urine pH 8.0 (5.0-9.0) Ur Specific [place] >= 1.030 H (1.005-1.025) Urine Protein Trace (Neg-Trace) mg/dL Urine Glucose (UA) Negative (Negative) mg/dL Urine Ketones 15 (Negative) mg/dL Urine Blood Negative (Negative) Urine Nitrite Negative (Negative) Ur Leukocyte Esterase Negative (Negative) Urine RBC 0-2 (0-2) /HPF Urine WBC 0-5 (0-5) /HPF Ur Squamous Epith Cells 0-2 (0-2) /HPF Urine Bacteria None Seen (None Seen) Hyaline Casts 0-2 (0-2) /LPF Blood Type B Positive Discharge Plan Discharge Clinical Impression: Abdominal pain Patient Disposition: Left Against Medical Advice Prescriptions: No Action gabapentin 300 mg Capsule 300 mg PO BID omeprazole 20 mg Capsule,Delayed Release(Dr/Ec) 20 mg PO BID@0630,1630 hydroxyzine pamoate 25 mg Capsule 50 mg PO BEDTIME PRN (Reason: Anxiety) duloxetine 10 mg PO BEDTIME amlodipine 10 mg Tablet 10 mg PO DAILY gabapentin 400 mg Capsule 400 mg PO BEDTIME levothyroxine 175 mcg Tablet 175 mcg PO DAILY@0600 prazosin 5 mg Capsule 5 mg PO BEDTIME cetirizine 10 mg Tablet 10 mg PO DAILY sucralfate [Carafate] 100 mg/mL Suspension 10 ml PO BID@0621,5290 lisinopril-hydrochlorothiazide 20-12.5 mg Tablet 1 tab PO DAILY simvastatin 5 mg tablet 5 mg PO BEDTIME Discharge Date/Time: 03/28/24 21:37 Print Language: Kiswahili
[2024-03-28 18:01] LABS: MANUAL DIFF FLAG NO
[2024-03-28 18:07] LABS: Basophils Percent Auto 0.4 % (0-2); Eosinophils Percent Auto 0.4 % (0-4); Hematocrit 36.9 % (37.0-47.0); Hemoglobin 11.9 g/dl (12.0-16.0); INTERNATIONAL NORM RATIO 0.9 (0.9-1.1); Imm Gran Abs Auto 0.03 X10*3/uL (0.00-0.03); Imm Gran Pct Auto 0.3 % (0.0-0.4); Lymphocytes Absolute Auto 0.7 X10*3/uL (1.2-4.9); Lymphocytes Percent Auto 7.3 % (20-40); Mean Corpuscular HGB Conc 32.2 g/dl (31.0-35.0); Mean Corpuscular Hemoglobin 25.6 pg (27.0-33.0); Mean Corpuscular Volume 79.5 fL (80.0-98.0); Mean Platelet Volume 10.8 fL (9.4-12.3); Monocytes Absolute Auto 0.4 X10*3/uL (0.1-1.2); Monocytes Percent Auto 4.1 % (2-11); Neutrophils Absolute Auto 8.6 x10*3/uL (2.0-8.3); Neutrophils Percent Auto 87.5 % (45-73); Platelet Count 262 X10*3/uL (160-400); Red Blood Count 4.64 X10*6/uL (4.20-5.50); Red Cell Distribution Width 14.9 % (11.0-16.0); White Blood Count 9.8 X10*3/uL (4.8-10.8)
[2024-03-28 18:10] LABS: Partial Thromboplastin Time 28.9 SEC (26.0-36.8)
[2024-03-28 18:15] LABS: Alanine Aminotransferase 11 U/L (0-31); Alkaline Phosphatase 79 U/L (39-117); Anion Gap 12 (12-20); Aspartate Amino Transferase 16 U/L (5-31); Bilirubin Total 0.4 mg/dL (0.0-1.0); Blood Urea Nitrogen 14 mg/dL (9-16); Calcium 9.4 mg/dL (8.4-10.2); Carbon Dioxide 25 mmol/L (22-29); Chloride 110 mmol/L (96-108); Creatinine Clr Calc Pharmacy 73.2; Estimated Glomerular Filt Rate 59; Glucose Random 140 mg/dL (60-115); Lipase 13 U/L (8-78); Potassium 3.4 mmol/L (3.3-5.1); Sodium 144 mmol/L (135-145); Total Protein 6.8 g/dL (6.5-8.0)
[2024-03-28 18:22] LABS: Troponin-I High Sensitivity 3.6 ng/L (<3.5-17.0)
[2024-03-28] MEDS: iohexoL 350 MG/ML 100 ML INFUS..BTL IV (19:15)
--- NOTE | 2024-03-28 19:16 | PC.NURSE ---
assumed care of pt at 1900.
[2024-03-28 19:35] LABS: Appearance Urine Clear; Color Urine Yellow; Glucose Urine UA Negative (Negative); Leukocyte Esterase Urine Negative (Negative); Nitrite Urine Negative (Negative); Specific Gravity - Urine >= 1.030 (1.005-1.025); Urine Blood Negative (Negative); Urine Ketones 15 mg/dL (Negative); Urine Protein Trace mg/dL (Neg-Trace)
[2024-03-28 19:40] LABS: Bacteria Urine None Seen (None Seen); Hyaline Casts Urine 0-2 /LPF (0-2); RBC Urine 0-2 /HPF (0-2); Squamous Epithelial Cell Urine 0-2 /HPF (0-2); WBC Urine 0-5 /HPF (0-5)
[2024-03-28] MEDS: HYDROmorphone HCl 1 MG/ML SYRINGE IVPUSH (20:06)
[2024-03-28] MEDS: Metoclopramide HCl 10 MG/2 ML VIAL IVPUSH (20:07)
--- NOTE | 2024-03-28 21:33 | PC.NURSE ---
pt states she needs to leave and wants to leave AMA, pt informed that we are waiting for CT scan results. pt says that is ok she has to go home and her pain is better. pt is ambulatory with a steady gait to and from bathroom, A&Ox4, states she will follow up with her pcp at [facility] for further eval. CANDIDA Sanchez aware that pt is leaving
== END 2024-03-28 21:37 | disposition left against medical advice (07) ==
PROVIDERS: Physician Assistant; Emergency Provider Emergency Medicine Emergency Medical Services; PCP Nurse Practitioner Family
DX: R10.10 Upper abdominal pain, unspecified (principal); Z53.29 Procedure and treatment not carried out because of patient's decision for other reasons; E78.5 Hyperlipidemia, unspecified; I10 Essential (primary) hypertension; E03.9 Hypothyroidism, unspecified; Z79.899 Other long term (current) drug therapy; Z79.02 Long term (current) use of antithrombotics/antiplatelets; F17.200 Nicotine dependence, unspecified, uncomplicated
CPT/HCPCS: 36415; 74177; 80053; 81001; 83690; 84484; 85025; 85610; 85730; 86900; 86901; 93005; 96361; 96374; 96375; 96376; 99284; 99285; J1170; J2405; J2470; J2765; Q9967

== ENCOUNTER 2024-05-28 10:39 | Emergency (ER) | payer MEDICARE, MEDICAID, SELFPAY ==
[2024-05-28] VITALS (9 sets, daily range): BP systolic 151–219; BP diastolic 85–137; PULSE 60–84; RESP 14–22; TEMP 36.6–37; O2SAT 97–100; BMI 31.5
--- NOTE | ~2024-05-28 | CT_ITS ---
EXAMINATION: CT ABDOMEN AND PELVIS WITH CONTRAST CLINICAL INFORMATION: Diffuse abdominal pain. Epigastric pain. COMPARISON: CT dated March 28, 2024 TECHNIQUE: Multidetector volumetric images were obtained from the superior aspect of the liver through the pubic symphysis following administration 85 mL of Omnipaque 350 intravenous contrast. Sagittal and coronal reformatted images were obtained on the technologist's workstation. Oral contrast: No This CT examination was performed using dose optimization techniques as appropriate, variously including the following: *Automated exposure control *Adjustment of mA and/or kV according to patient size (this includes techniques or standardized protocols for targeted exams where dose is matched to indication/reason for exam; i.e. extremities or head) *Use of iterative reconstruction technique DLP: 743 mGy-cm FINDINGS: LUNG BASES: Patchy pulmonary parenchymal glass in the periphery of the lung bases. Calcified plaques in the coronary arteries and thoracic aorta. LIVER, GALLBLADDER, AND BILIARY TREE: Liver measures 17 cm. Decreased enhancement pattern. No focal mass. Portal vein and intrahepatic portion of the IVC are patent. 1 cm calcification within the lumen of the gallbladder. No pericholecystic fluid collection or gallbladder wall thickening. No intrahepatic or extrahepatic biliary ductal dilatation. PANCREAS: No focal pancreatic mass. No peripancreatic fluid collections. No main pancreatic ductal dilatation. SPLEEN: 10 cm. No focal mass. Accessory spleens, splenic hilum. ADRENAL GLANDS: Soft tissue fullness in the adrenal glands, more conspicuous on the right side. KIDNEYS AND URETERS: No hydronephrosis. No gross renal mass. Renal cortical thinning, bilaterally. BLADDER: Fluid-filled. GASTROINTESTINAL TRACT: Concentric wall thickening extending from the hepatic colonic flexure to the descending, sigmoid colon. Numerous diverticula in sigmoid colon. No intestinal obstruction. No ascites. No pneumatosis intestinalis. No pneumoperitoneum. Appendix is normal. Post surgical changes at the gastroesophageal junction.. ABDOMINAL WALL: Fat-containing left para midline epigastric hernia, large volume. LYMPH NODES: No lymphadenopathy. VASCULAR: No aneurysm or dissection, abdominal aorta. PELVIC VISCERA: No gross masses in the adnexa. OSSEOUS STRUCTURES: There is beam hardening artifact secondary to a total left hip arthroplasty prosthesis. Multilevel thoracolumbar spondylosis. Grade 1 retrolisthesis L5-S1, T12-L1 and L1-[address]/CT abdomen pelvis w IV con IMPRESSION: Concerning acute colitis in the correct clinical settings. No intestinal obstruction pattern or pneumoperitoneum. Diverticular disease, sigmoid colon. Cholelithiasis. Fat-containing epigastric hernia, large volume. Fleischner guidelines were followed. Electronically signed by: Prosper Beaver MD 05/28/2024 02:14 PM EDT
[2024-05-28] MEDS: ondansetron HCL 4 MG/2 ML VIAL IVPUSH (11:12)
[2024-05-28] MEDS: HYDROmorphone HCl 0.5 MG/0.5 ML SYRINGE IVPUSH ×2 (11:13→14:53)
[2024-05-28] MEDS: 0.9 % Sodium Chloride 1,000 ML 999 ML IV (11:15)
--- NOTE | 2024-05-28 11:58 | PC.NURSE ---
Pt BIBA from home, reports severe ABD pain, upper, along with N/V since this morning. Has hx of pancreatitis and reports it feels like that. Pt noted to be screaming initially, inconsolable. Alert and oriented, breathing slightly elevated. Pt medicated per SEP. Pt now resting and feels much better. Pt noted to desat after meds to 89% RA, placed on 2L O2 NC and improves.
[2024-05-28 12:33] LABS: Alanine Aminotransferase 10 U/L (0-31); Albumin Level 3.8 g/dL (3.5-5.0); Anion Gap 13 (12-20); Aspartate Amino Transferase 23 U/L (5-31); Bilirubin Direct 0.2 mg/dL (0.0-0.5); Bilirubin Total 0.6 mg/dL (0.0-1.0); Blood Urea Nitrogen 18 mg/dL (9-16); Calcium 8.7 mg/dL (8.4-10.2); Carbon Dioxide 21 mmol/L (22-29); Chloride 112 mmol/L (96-108); Creatinine Clr Calc Pharmacy 70.4; Estimated Glomerular Filt Rate 57; Glucose Random 125 mg/dL (60-115); Lipase 14 U/L (8-78); Potassium 3.4 mmol/L (3.3-5.1); Sodium 143 mmol/L (135-145); Total Protein 6.6 g/dL (6.5-8.0)
[2024-05-28 12:41] LABS: Alkaline Phosphatase 76 U/L (39-117)
[2024-05-28 12:42] LABS: Basophils Percent Auto 0.4 % (0-2); Eosinophils Percent Auto 0.1 % (0-4); Hematocrit 38.1 % (37.0-47.0); Hemoglobin 12.6 g/dl (12.0-16.0); Imm Gran Abs Auto 0.04 X10*3/uL (0.00-0.03); Imm Gran Pct Auto 0.4 % (0.0-0.4); Lymphocytes Absolute Auto 0.8 X10*3/uL (1.2-4.9); Lymphocytes Percent Auto 7.1 % (20-40); Mean Corpuscular HGB Conc 33.1 g/dl (31.0-35.0); Mean Corpuscular Volume 78.7 fL (80.0-98.0); Monocytes Absolute Auto 0.4 X10*3/uL (0.1-1.2); Monocytes Percent Auto 3.3 % (2-11); Neutrophils Absolute Auto 9.7 x10*3/uL (2.0-8.3); Neutrophils Percent Auto 88.7 % (45-73); Platelet Count 261 X10*3/uL (160-400); Red Blood Count 4.84 X10*6/uL (4.20-5.50); Red Cell Distribution Width 14.9 % (11.0-16.0); White Blood Count 10.9 X10*3/uL (4.8-10.8)
[2024-05-28] MEDS: iohexoL 350 MG/ML 100 ML INFUS..BTL IV (12:54)
[2024-05-28 14:29] LABS: Appearance Urine Clear; Color Urine Yellow; Glucose Urine UA Negative (Negative); Leukocyte Esterase Urine Negative (Negative); Nitrite Urine Negative (Negative); PH >= 9.0 (5.0-9.0); Specific Gravity - Urine >= 1.030 (1.005-1.025); Urine Blood Negative (Negative); Urine Ketones Trace mg/dL (Negative); Urine Protein Negative (Neg-Trace)
[2024-05-28 14:31] LABS: Bacteria Urine None Seen (None Seen); Hyaline Casts Urine 0-2 /LPF (0-2); RBC Urine 0-2 /HPF (0-2); Squamous Epithelial Cell Urine 0-2 /HPF (0-2); WBC Urine 0-5 /HPF (0-5)
--- NOTE | 2024-05-28 14:35 | ED_ITS ---
HPI - Abdominal Pain General Chief Complaint: Abdominal Pain Stated Complaint: ABD PAIN,N/V ,H/O PANCREATITIS PER EMS Time Seen by Provider: 05/28/24 10:51 History of Present Illness HPI narrative: Patient is a 54-year-old female presents today with having abdominal pain extreme worse over the upper abdomen. With nausea vomiting. Patient claims she had a history of pancreatitis in the past. There is no diarrhea. Was given Toradol and Zofran by EMS. Patient screaming yelling complaining of uncontrolled pain Related Data Home Medications ?Medication ?Instructions ?Recorded ?Confirmed simvastatin 5 mg tablet 5 mg PO BEDTIME 11/08/20 01/22/24 gabapentin 300 mg capsule 300 mg PO BID 10/17/21 01/22/24 hydroxyzine pamoate 25 mg capsule 50 mg PO BEDTIME PRN Anxiety 10/17/21 01/22/24 omeprazole 20 mg capsule,delayed 20 mg PO BID@0630,1630 10/17/21 01/22/24 release amlodipine 10 mg tablet 10 mg PO DAILY 11/19/23 01/22/24 cetirizine 10 mg tablet 10 mg PO DAILY 11/19/23 01/22/24 gabapentin 400 mg capsule 400 mg PO BEDTIME 11/19/23 01/22/24 levothyroxine 175 mcg tablet 175 mcg PO DAILY@0600 11/19/23 01/22/24 lisinopril 20 1 tab PO DAILY 11/19/23 01/22/24 mg-hydrochlorothiazide 12.5 mg tablet prazosin 5 mg capsule 5 mg PO BEDTIME 11/19/23 01/22/24 sucralfate 100 mg/mL oral 10 ml PO BID@0630,1630 11/19/23 01/22/24 suspension (Carafate) duloxetine 10 mg PO BEDTIME 01/22/24 01/22/24 Allergies Allergy/AdvReac Type Severity Reaction Status Date / Time Penicillins Allergy Severe Anaphylaxis Verified 05/28/24 10:49 Review of Systems Review of Systems Positive abdominal pain Yes all other systems are reviewed and are negative PMFSH Past Medical History Attestation statement: The following information was validated with the patient. Medical History Foreign body (FB) in soft tissue Personal history of nicotine dependence Hyperlipidemia Nausea & vomiting Hypochromic microcytic anemia Obesity due to excess calories Hypothyroidism Osteoarthritis Essential hypertension Surgical History History of hernia surgery History of shoulder surgery History of tonsillectomy History of colonoscopy History of esophagogastroduodenoscopy (EGD) History of carpal tunnel release Family History Family History Father Lung cancer Mother Congestive heart failure Type 2 diabetes mellitus Social History Social History Household Members: Family Household Members Other:: 2 Housing: House Housing Other:: sober community Do you presently have visiting nurse or other home services: No Unable to assess alcohol history related to: Unknown Alcohol intake: former Comment: patient is 1:1 supervision Patient Tobacco Use Status: Current everyday Tobacco user Tobacco use type: Smokeless Tobacco Years Smoked: 20 Smoked in Last 30 Days: Yes Use of substances other than those prescribed or required for medical reasons: Yes Substance Use Type: Marijuana Advance Directives: No Advance Directives Information Provided: Yes Patient : No service: No Current occupational status: employed Physical Exam ED Vital Signs: Vital Signs - 24 hr 05/28/24 10:44 05/28/24 10:56 05/28/24 11:13 Temperature 98 F Pulse Rate 65 74 Respiratory Rate 22 H 20 16 Blood Pressure 183/98 H 183/98 H Pulse Oximetry 100 100 Oxygen Delivery Method Room Air Room Air Oxygen Flow Rate 05/28/24 11:18 05/28/24 12:21 05/28/24 14:21 Temperature 97.9 F Pulse Rate 66 75 Respiratory Rate 16 14 14 Blood Pressure 165/93 H 196/112 H Pulse Oximetry 100 97 Oxygen Delivery Method Nasal Cannula Room Air Oxygen Flow Rate 2 BMI result Body Mass Index 31.5 Appearance: Alert. Oriented X3. No acute distress. Eyes: Pupils equal, round and reactive to light. ENT: Pharynx normal. Neck: Normal inspection. Neck supple. No lymph nodes noted. No crepitus CVS: Normal heart rate and rhythm. Pulses normal. Normal S1 and S2 Respiratory: No respiratory distress. Breath sounds normal. No Wheezing. No rales Abdomen: Soft and nontender. No rigidity. No distention. good BS x4 Skin: Skin warm and dry. Normal skin color. Normal skin turgor. Extremities: No lower extremity edema. Neurovascular intact to all extremities. No Lacerations. No Rash Neuro: Oriented X 3. No motor deficit. No sensory deficit. Moving all extermities. No slurred speech Medical Decision Making Medical Decision Making [facility] Narrative: 54 years old presents today with having abdominal pain worse in the epigastric area. Patient's lipase is normal. CT scan showed possible colitis. There is no evidence for pancreatitis. I reviewed radiology's reading. Patient's urine showed no signs of infection no evidence for UTI. Her white count is 11. Patient has no significant shift. LFTs are normal. Will discharge patient home. After dose of Dilaudid symptoms completely relieved. Now in no distress. Question colitis versus nonspecific abdominal pain. In the setting of no significant diarrhea well appearance elected no antibiotics close follow-up outpatient Differential Diagnosis Differential Diagnoses: The differential diagnosis associated with the presentation includes Diverticulitis, perforation, obstruction, pancreatitis Admission/Observation Consideration of admission/observation: Escalation of care including admission/observation considered Pain is now resolved Lab Data [facility] Lab Attestation statement: I reviewed the patient's lab results. 05/28/24 12:35 05/28/24 11:58 Labs: Lab Results 05/28/24 05/28/24 05/28/24 Range/Units 11:58 12:35 14:23 WBC 10.9 H (4.8-10.8) X10*3/uL RBC 4.84 (4.20-5.50) X10*6/uL Hgb 12.6 (12.0-16.0) g/dl Hct 38.1 (37.0-47.0) % MCV 78.7 L (80.0-98.0) fL MCH 26.0 L (27.0-33.0) pg MCHC 33.1 (31.0-35.0) g/dl RDW 14.9 (11.0-16.0) % Plt Count 261 (160-400) X10*3/uL MPV 11.0 (9.4-12.3) fL Immature Gran % (Auto) 0.4 (0.0-0.4) % Neut % (Auto) 88.7 H (45-73) % Lymph % (Auto) 7.1 L (20-40) % [place] % (Auto) 3.3 (2-11) % Eos % (Auto) 0.1 (0-4) % Baso % (Auto) 0.4 (0-2) % Lymph # (Auto) 0.8 L (1.2-4.9) X10*3/uL [place] # (Auto) 0.4 (0.1-1.2) X10*3/uL Eos # (Auto) 0.0 (0.0-0.4) X10*3/uL Baso # (Auto) 0.0 (0.0-0.2) X10*3/uL Abs Immat Gran (auto) 0.04 H (0.00-0.03) X10*3/uL Absolute Neuts (auto) 9.7 H (2.0-8.3) x10*3/uL Absolute Nucleated RBC 0.000 (0.0-0.012) X10*3/uL Nucleated RBC % (auto) 0.0 (0.0-0.2) /100WBC Sodium 143 (135-145) mmol/L Potassium 3.4 (3.3-5.1) mmol/L Chloride 112 H (96-108) mmol/L Carbon Dioxide 21 L (22-29) mmol/L Anion Gap 13 (12-20) BUN 18 H (9-16) mg/dL Creatinine 1.00 (0.5-1.4) mg/dL Estim Creat Clear Calc 70.4 Estimated GFR 57 Random Glucose 125 H (60-115) mg/dL Calcium 8.7 D (8.4-10.2) mg/dL Total Bilirubin 0.6 (0.0-1.0) mg/dL Direct Bilirubin 0.2 (0.0-0.5) mg/dL AST 23 (5-31) U/L ALT 10 (0-31) U/L Alkaline Phosphatase 76 (39-117) U/L Total Protein 6.6 (6.5-8.0) g/dL Albumin 3.8 (3.5-5.0) g/dL Lipase 14 (8-78) U/L Urine Color Yellow Urine Appearance Clear Urine pH >= 9.0 (5.0-9.0) Ur Specific [place] >= 1.030 H (1.005-1.025) Urine Protein Negative (Neg-Trace) mg/dL Urine Glucose (UA) Negative (Negative) mg/dL Urine Ketones Trace (Negative) mg/dL Urine Blood Negative (Negative) Urine Nitrite Negative (Negative) Ur Leukocyte Esterase Negative (Negative) Urine RBC 0-2 (0-2) /HPF Urine WBC 0-5 (0-5) /HPF Ur Squamous Epith Cells 0-2 (0-2) /HPF Urine Bacteria None Seen (None Seen) Hyaline Casts 0-2 (0-2) /LPF Radiology Impression Discussion of test interpretation with radiology: I have reviewed the radiologist's reading. Radiologist Impression: I reviewed radiology's reading of the CT scan abdomen pelvis External Record Review Previous CT results reviewed Social Determinants Patient?s care significantly limited by Social Determinants of Health including: Alcoholism and drug addiction in family and Problems related to primary support group Medications Administered Discontinued Medications Generic Name Dose Route Start Last Admin Trade Name Freq PRN Reason Stop Dose Admin Hydromorphone HCl 0.5 mg 05/28/24 11:06 05/28/24 11:13 Hydromorphone Hcl 0.5 Mg/0.5 Ml Syringe IVPUSH 05/28/24 11:07 0.5 mg ONCE ONE Administration Protocol Sodium Chloride 1,000 mls @ 999 mls/hr 05/28/24 11:15 05/28/24 12:21 Ns IV 05/28/24 12:15 Infused .Q1H1M ITZEL Infusion Iohexol 100 ml 05/28/24 12:54 05/28/24 12:54 Iohexol 350 Mg/Ml 100 Ml Infus..Btl IV 05/28/24 12:55 85 ml ONCE ONE Administration Ondansetron HCl 4 mg 05/28/24 11:06 05/28/24 11:12 Ondansetron Hcl 4 Mg/2 Ml Vial IVPUSH 05/28/24 11:07 4 mg ONCE ONE Administration Discharge Plan Discharge Clinical Impression: Colitis, Abdominal pain Patient Disposition: Home, Self-Care Instructions: Abdominal Pain (ED), Colitis (ED) Prescriptions: No Action gabapentin 300 mg Capsule 300 mg PO BID omeprazole 20 mg Capsule,Delayed Release(Dr/Ec) 20 mg PO BID@0630,1630 hydroxyzine pamoate 25 mg Capsule 50 mg PO BEDTIME PRN (Reason: Anxiety) duloxetine 10 mg PO BEDTIME amlodipine 10 mg Tablet 10 mg PO DAILY gabapentin 400 mg Capsule 400 mg PO BEDTIME levothyroxine 175 mcg Tablet 175 mcg PO DAILY@0600 prazosin 5 mg Capsule 5 mg PO BEDTIME cetirizine 10 mg Tablet 10 mg PO DAILY sucralfate [Carafate] 100 mg/mL Suspension 10 ml PO BID@0630,1630 lisinopril-hydrochlorothiazide 20-12.5 mg Tablet 1 tab PO DAILY simvastatin 5 mg tablet 5 mg PO BEDTIME Referrals: Leidy Dunham NP [Primary Care Provider] - 06/02/24 Print Language: [place]
== END 2024-05-28 16:02 | disposition home or self-care (01) ==
PROVIDERS: Emergency Provider Emergency Medicine Emergency Medical Services; PCP Nurse Practitioner Family
DX: K52.9 Noninfective gastroenteritis and colitis, unspecified (principal); R10.10 Upper abdominal pain, unspecified; I10 Essential (primary) hypertension; E03.9 Hypothyroidism, unspecified; Z79.899 Other long term (current) drug therapy
CPT/HCPCS: 36415; 74177; 80048; 80076; 81001; 83690; 85025; 96361; 96374; 96375; 96376; 99284; 99285; J1171; J2405; Q9967

== ENCOUNTER → 2024-05-28 11:06 | Outpatient (BNV) | payer MEDICARE, MEDICAID, SELFPAY | PROVIDERS: Emergency Provider Emergency Medicine Emergency Medical Services; PCP Nurse Practitioner Family; Visit Provider Radiology Diagnostic Radiology | DX: R10.9 Unspecified abdominal pain (principal) | CPT/HCPCS: 74177 ==

== ENCOUNTER 2024-06-12 17:57 | Outpatient (REF) | payer MEDICARE, MEDICAID, SELFPAY ==
[2024-06-12 18:03] LABS: Appearance Urine Clear; Color Urine Yellow; Glucose Urine UA Negative (Negative); Leukocyte Esterase Urine Moderate (2+) (Negative); Nitrite Urine Negative (Negative); PH 6.5 (5.0-9.0); Specific Gravity - Urine 1.025 (1.005-1.025); UMIC TRIGGER UACC YES; Urine Blood Negative (Negative); Urine Ketones Trace mg/dL (Negative); Urine Protein Trace mg/dL (Neg-Trace)
[2024-06-12 18:15] LABS: Bacteria Urine None Seen (None Seen); Calcium Oxalate Crystals Urine Present; RBC Urine 0-2 /HPF (0-2); UACC Culture Trigger YES
== END 2024-06-12 17:58 | disposition home or self-care (01) ==
LOC: HO.HHCLNP 17:57
PROVIDERS: Visit Provider Nurse Practitioner Family
DX: R34 Anuria and oliguria (principal)
CPT/HCPCS: 81001; 87086

== ENCOUNTER 2024-07-17 08:19 | Emergency (ER) | payer MEDICARE, MEDICAID, SELFPAY ==
[2024-07-17] VITALS (7 sets, daily range): BP systolic 146–219; BP diastolic 78–110; PULSE 71–88; RESP 18–22; TEMP 36.6–37.1; O2SAT 98–100; BMI 34.3
--- NOTE | ~2024-07-17 | CT_ITS ---
EXAMINATION: CT ABDOMEN AND PELVIS WITH CONTRAST CLINICAL INFORMATION: Diffuse abdominal pain. Nausea/vomiting. COMPARISON: CT dated May 28, 2024. TECHNIQUE: Multidetector volumetric images were obtained from the superior aspect of the liver through the pubic symphysis following administration 85 mL of Omnipaque 350 intravenous contrast. Sagittal and coronal reformatted images were obtained on the technologist's workstation. Oral contrast: No This CT examination was performed using dose optimization techniques as appropriate, variously including the following: *Automated exposure control *Adjustment of mA and/or kV according to patient size (this includes techniques or standardized protocols for targeted exams where dose is matched to indication/reason for exam; i.e. extremities or head) *Use of iterative reconstruction technique DLP: 774 mGy-cm FINDINGS: LUNG BASES: Linear attenuation, right lung base. LIVER, GALLBLADDER, AND BILIARY TREE: Liver measures 18 cm. No focal mass. Portal veins, hepatic veins and intrahepatic portions of the IVC are patent. Normal enhancement pattern throughout the liver parenchyma. 1.5 cm intraluminal calcification, gallbladder without pericholecystic fluid collection or gallbladder wall thickening. Common bile duct measures 4 mm. PANCREAS: No focal mass. No peripancreatic fluid collection. No main pancreatic ductal dilatation. SPLEEN: 11 cm. No focal mass. ADRENAL GLANDS: Soft tissue fullness without nodular lesion, bilaterally. Punctate calcification right adrenal gland. KIDNEYS AND URETERS: No renal mass. No hydronephrosis. lobulations. BLADDER: Collapse. GASTROINTESTINAL TRACT: Sutures at the gastroesophageal junction. Apparent wall thickening throughout the large intestine extending from the ascending colon to the rectosigmoid colon. There is loss of the lumen of the majority of the large intestine. Multiple diverticula in the descending colon and sigmoid colon. Mild pericolonic edema pattern. Appendix is normal. No intestinal obstruction pattern. No pneumoperitoneum. No pneumatosis intestinalis. ABDOMINAL WALL: There is a moderate to large sized fat-containing left-sided periumbilical hernia. Small fat-containing umbilical hernia.. LYMPH NODES: No lymphadenopathy. VASCULAR: No aneurysm or dissection. Calcified plaques throughout the abdominal aorta wall. Calcified plaques in the coronary arteries. PELVIC VISCERA: No masses within the uterus or the adnexa. OSSEOUS STRUCTURES: Being hardening artifact secondary to a total left hip arthroplasty prosthesis. Multilevel thoracolumbar spondylosis resulting in grade 1 retrolisthesis, T12-L1, L1-2 and L4-[address]/CT abdomen pelvis w IV con IMPRESSION: Concerning acute colitis in the correct clinical settings. Left periumbilical fat-containing moderate to large hernia and small fat-containing umbilical hernia. Diverticular disease, left hemicolon. Cholelithiasis. Coronary artery disease. Multilevel thoracolumbar spondylosis. Fleischner guidelines were followed. Electronically signed by: Prosper Beaver MD 07/17/2024 12:13 PM [facility]
--- NOTE | 2024-07-17 08:21 | ED.ABDPAIN ---
HPI - Abdominal Pain General Chief Complaint: Abdominal Pain Stated Complaint: ABD PAIN Time Seen by Provider: 07/17/24 08:21 Source: patient, EMS, RN notes reviewed and old records reviewed Mode of arrival: EMS History of Present Illness ED Provider: Modesta Gomez PA-C HPI narrative: 54-year-old female with a past medical history of acute pancreatitis, Schatzki ring, diverticular disease, hiatal hernia, hypothyroid, obesity, presenting to the ED via EMS complaining of diffuse abdominal pain, nausea, vomiting, and diarrhea since early this morning. Patient reports multiple similar episodes in the past, similar to prior pancreatitis. Denies fever, chills, dysuria/hematuria. Related Data Home Medications ?Medication ?Instructions ?Recorded ?Confirmed simvastatin 5 mg tablet 5 mg PO BEDTIME 11/08/20 01/22/24 gabapentin 300 mg capsule 300 mg PO BID 10/17/21 01/22/24 hydroxyzine pamoate 25 mg capsule 50 mg PO BEDTIME PRN Anxiety 10/17/21 01/22/24 omeprazole 20 mg capsule,delayed 20 mg PO BID@0630,1630 10/17/21 01/22/24 release amlodipine 10 mg tablet 10 mg PO DAILY 11/19/23 01/22/24 cetirizine 10 mg tablet 10 mg PO DAILY 11/19/23 01/22/24 gabapentin 400 mg capsule 400 mg PO BEDTIME 11/19/23 01/22/24 levothyroxine 175 mcg tablet 175 mcg PO DAILY@0600 11/19/23 01/22/24 lisinopril 20 1 tab PO DAILY 11/19/23 01/22/24 mg-hydrochlorothiazide 12.5 mg tablet prazosin 5 mg capsule 5 mg PO BEDTIME 11/19/23 01/22/24 sucralfate 100 mg/mL oral 10 ml PO BID@0630,1630 11/19/23 01/22/24 suspension (Carafate) duloxetine 10 mg PO BEDTIME 01/22/24 01/22/24 Previous Rx's ?Medication ?Instructions ?Recorded loperamide 2 mg capsule 2 mg PO Q6H PRN loose stool #20 07/17/24 caps ondansetron 4 mg disintegrating 4 mg PO Q6H PRN nausea and 07/17/24 tablet vomiting #14 tabs Allergies Allergy/AdvReac Type Severity Reaction Status Date / Time Penicillins Allergy Severe Anaphylaxis Verified 07/17/24 09:06 Review of Systems Review of Systems Yes all other systems are reviewed and are negative Constitutional: Reports as per [facility] Past Medical History Attestation statement: The following information was validated with the patient. Source: old records reviewed Medical History Foreign body (FB) in soft tissue Personal history of nicotine dependence Hyperlipidemia Nausea & vomiting Hypochromic microcytic anemia Obesity due to excess calories Hypothyroidism Osteoarthritis Essential hypertension Surgical History History of hernia surgery History of shoulder surgery History of tonsillectomy History of colonoscopy History of esophagogastroduodenoscopy (EGD) History of carpal tunnel release Family History Family History Father Lung cancer Mother Congestive heart failure Type 2 diabetes mellitus Social History Social History Household Members: Family Household Members Other:: 2 Housing: House Housing Other:: sober community Do you presently have visiting nurse or other home services: No Unable to assess alcohol history related to: Unknown Alcohol intake: former Comment: patient is 1:1 supervision Patient Tobacco Use Status: Current everyday Tobacco user Tobacco use type: Smokeless Tobacco Years Smoked: 20 Substance Use Type: Marijuana Advance Directives: No Advance Directives Information Provided: Yes service: No Current occupational status: employed Physical Exam ED Vital Signs: Vital Signs - 24 hr 07/17/24 08:58 07/17/24 10:29 07/17/24 11:18 Temperature 98.3 F 97.8 F 97.9 F Pulse Rate 71 79 71 Respiratory Rate 22 H 20 18 Blood Pressure 196/110 H 212/100 H 219/110 H Pulse Oximetry 99 100 100 Oxygen Delivery Method Room Air Room Air Room Air 07/17/24 13:33 07/17/24 14:40 Temperature 98.8 F 98.6 F Pulse Rate 82 76 Respiratory Rate 18 18 Blood Pressure 179/107 H 146/95 H Pulse Oximetry 98 98 Oxygen Delivery Method Room Air Room Air BMI result Body Mass Index 34.3 Const Other: Yelling, screaming in pain General: no acute distress Orientation/consciousness: patient oriented x3 Limitations: no limitations HENMT Head: Yes normal to inspection and Yes atraumatic Ears: hearing grossly normal bilaterally General nose exam: Normal external nose present Face and sinus: Yes normal facial exam Eyes General: appearance normal, both eyes and all related structures EOM: EOMs intact bilaterally Neck Neck: Yes normal visual inspection and Yes no meningeal signs Resp Effort & Inspection: normal respiratory effort and no respiratory distress Auscultation: clear to auscultation bilaterally Cardio Rate: regular rate Heart sounds: S1 normal heart sound present and S2 normal heart sound present GI Inspection: Yes normal to inspection Palpation (GI): Soft to palpation, nontender, no guarding and not rigid General: Yes no CVA tenderness Back/Spine/Pelvis Back: no CVA tenderness Skin Rashes: no rashes Wounds: no wounds Neuro General: patient oriented x3, tone normal and no meningeal signs Cranial nerves: Yes CN's II-XII intact bilaterally Gait exam (Neuro): Normal gait present Extrem General: Yes normal to inspection Course Course Course Narrative: -09--leukocytosis of 14.1 > likely reactive from emesis. Still low suspicion for severe sepsis -potassium low at 3.2 > IV repletion ordered due to patient's nausea/vomiting and retching. Lactic acid WNL -1055--BP noted to be elevated 212/100 > patient denies taking antihypertensives this morning. Will give home dose and re-evaluate >1100--on re-evaluation patient is sleeping comfortably in stretcher, appears more comfortable. -1130--ED care transferred to [facility] pending UA, tox screen, blood pressure monitoring, CT AP, and re-evaluation. Dispo per results Reevaluation(s) Reevaluation #1: I did receive sign-out on this patient, her CT scan resulted concerning for acute colitis, history and physical exam consistent with this, this is likely viral however. I do not suspect bacterial. Will see that she has only large periumbilical fat containing a moderate to large hernia and small fat containing umbilical hernia no signs of strangulation. Diverticular disease however no signs of active diverticulitis. Cholelithiasis no acute cholecystitis noted. Coronary artery disease. Patient eating and drinking. UA and BP repeat still pending. Time: 12:31 Reevaluation #2: Blood pressure improved. UA without infection. Patient is adamant she would like to go home does not want to be admitted. No reason for admission leukocytosis likely reactive due to nausea vomiting. She is feeling much better no pain. Plan at this time is discharge she did pass a p.o. challenge and is feeling much better. Time: 14:50 Medical Decision Making Medical Decision Making [facility] Narrative: 54-year-old female with a past medical history of acute pancreatitis, Schatzki ring, diverticular disease, hiatal hernia, hypothyroid, obesity, presenting to the ED via EMS complaining of diffuse abdominal pain, nausea, vomiting, and diarrhea since early this morning. On exam tachypneic, patient yelling, screaming, writhing around stretcher in pain, abdomen is soft and nontender. Patient with multiple similar presentations in the past. Concern for colitis vs ? Diverticulitis vs pancreatitis vs gastroenteritis vs possible appendicitis. Lower suspicion for cholecystitis/lithiasis. Low suspicion for severe sepsis Plan: Labs, UA, IVF, pain control, +/- CT after analgesics Please refer to course for remaining clinical decision making, interpretation of labs/imaging results, and discussions with consultants and/or family members. Differential Diagnosis Differential Diagnoses: The differential diagnosis associated with the presentation includes As above Admission/Observation Consideration of admission/observation: Escalation of care including admission/observation considered Lab Data [facility] Lab Attestation statement: I reviewed the patient's lab results. 07/17/24 08:55 07/17/24 08:55 Labs: Lab Results 07/17/24 07/17/24 07/17/24 Range/Units 08:55 10:09 13:31 WBC 14.1 H (4.8-10.8) X10*3/uL RBC 5.09 (4.20-5.50) X10*6/uL Hgb 13.3 (12.0-16.0) g/dl Hct 39.5 (37.0-47.0) % MCV 77.6 L (80.0-98.0) fL MCH 26.1 L (27.0-33.0) pg MCHC 33.7 (31.0-35.0) g/dl RDW 15.9 (11.0-16.0) % Plt Count 365 D (160-400) X10*3/uL MPV 10.5 (9.4-12.3) fL Immature Gran % (Auto) 0.6 H (0.0-0.4) % Neut % (Auto) 79.9 H (45-73) % Lymph % (Auto) 13.4 L (20-40) % [place] % (Auto) 4.2 (2-11) % Eos % (Auto) 1.3 (0-4) % Baso % (Auto) 0.6 (0-2) % Lymph # (Auto) 1.9 (1.2-4.9) X10*3/uL [place] # (Auto) 0.6 (0.1-1.2) X10*3/uL Eos # (Auto) 0.2 (0.0-0.4) X10*3/uL Baso # (Auto) 0.1 (0.0-0.2) X10*3/uL Abs Immat Gran (auto) 0.08 H (0.00-0.03) X10*3/uL Absolute Neuts (auto) 11.3 H (2.0-8.3) x10*3/uL Absolute Nucleated RBC 0.000 (0.0-0.012) X10*3/uL Nucleated RBC % (auto) 0.0 (0.0-0.2) /100WBC PT 10.2 L (10.9-12.4) SEC INR 0.9 (0.9-1.1) Sodium 143 (135-145) mmol/L Potassium 3.2 L (3.3-5.1) mmol/L Chloride 112 H (96-108) mmol/L Carbon Dioxide 18 L (22-29) mmol/L Anion Gap 16 (12-20) BUN 15 (9-16) mg/dL Creatinine 1.05 (0.5-1.4) mg/dL Estim Creat Clear Calc 65.2 Estimated GFR 54 Random Glucose 168 H (60-115) mg/dL Lactic Acid 1.9 (0.5-2.0) mmol/L Calcium 9.5 D (8.4-10.2) mg/dL Magnesium 1.9 (1.6-2.6) mg/dL Total Bilirubin 0.4 (0.0-1.0) mg/dL Direct Bilirubin 0.1 (0.0-0.5) mg/dL AST 24 (5-31) U/L ALT 18 (0-31) U/L Alkaline Phosphatase 89 (39-117) U/L Total Protein 7.5 (6.5-8.0) g/dL Albumin 4.3 (3.5-5.0) g/dL Lipase 36 (8-78) U/L Urine Color Yellow Urine Appearance Clear Urine pH 8.0 (5.0-9.0) Ur Specific [place] 1.020 (1.005-1.025) Urine Protein Negative (Neg-Trace) mg/dL Urine Glucose (UA) Negative (Negative) mg/dL Urine Ketones Negative (Negative) mg/dL Urine Blood Negative (Negative) Urine Nitrite Negative (Negative) Ur Leukocyte Esterase Negative (Negative) Urine Opiates Screen POSITIVE H (Not Detect) Ur Buprenorphine Scrn Not Detected (Not Detect) ng/mL Ur Oxycodone Screen Not Detected (Not Detect) ng/mL Urine Methadone Screen Not Detected (Not Detect) ng/mL Urine Fentanyl Screen Not Detected (Not Detect) Ur Barbiturates Screen Not Detected (Not Detect) Ur Phencyclidine Scrn Not Detected (Not Detect) Ur Amphetamines Screen Not Detected (Not Detect) U Benzodiazepines Scrn Not Detected (Not Detect) Urine Cocaine Screen Not Detected (Not Detect) U Marijuana (THC) Screen POSITIVE H (Not Detect) Ethyl Alcohol < 10 mg/dL Radiology Impression Discussion of test interpretation with radiology: I have reviewed the radiologist's reading. Independent Historian Clinical information obtained from an independent historian. History obtained from or confirmed by: EMS External Record Review External record reviewed: Inpatient record, Office record, Outpatient record, Prior outpatient labs, Prior outpatient radiology, Primary care record and Outside ED record Tests considered The following testing was considered but not selected: As above Prescription Management I considered prescription management with: Pain Medication Social Determinants Patient?s care significantly limited by Social Determinants of Health including: Alcoholism and drug addiction in family and Other Social Determinant of Health Medications Administered Discontinued Medications Generic Name Dose Route Start Last Admin Trade Name Freq PRN Reason Stop Dose Admin Diphenhydramine HCl 50 mg 07/17/24 10:14 07/17/24 10:22 Diphenhydramine Hcl 50 Mg/Ml Vial IVPUSH 07/17/24 10:15 50 mg ONCE ONE Administration Hydrochlorothiazide 12.5 mg 12/20/24 10:56 07/17/24 11:50 Hydrochlorothiazide 12.5 Mg Tablet PO 07/17/24 10:57 12.5 mg ONCE ONE Administration Protocol Hydromorphone HCl 1 mg 07/17/24 13:51 07/17/24 14:01 Hydromorphone Hcl 1 Mg/Ml Syringe IVPUSH 07/17/24 13:52 1 mg ONCE ONE Administration Protocol Sodium Chloride 1,000 mls @ 999 mls/hr 07/17/24 08:30 07/17/24 11:54 Ns IV 07/17/24 09:30 Infused .Q1H1M ITZEL Infusion Potassium Chloride 10 meq in 100 mls @ 100 mls/hr 07/17/24 09:45 07/17/24 14:01 Potassium Chloride/H20 IV 07/17/24 11:44 Not Given Q1H ITZEL Iohexol 100 ml 07/17/24 10:13 07/17/24 10:14 Iohexol 350 Mg/Ml 100 Ml Infus..Btl IV 07/17/24 10:14 85 ml ONCE ONE Administration Ketorolac Tromethamine 15 mg 07/17/24 08:30 07/17/24 08:58 Ketorolac Tromethamine 15 Mg/Ml Vial IVPUSH 07/17/24 08:31 15 mg ONCE ONE Administration Lisinopril 20 mg 07/17/24 10:56 07/17/24 11:50 Lisinopril 20 Mg Tablet PO 07/17/24 10:57 20 mg ONCE ONE Administration Protocol Morphine Sulfate 4 mg 07/17/24 08:53 07/17/24 10:17 Morphine Sulfate 4 Mg/Ml Cartridge IVPUSH 07/17/24 08:54 4 mg ONCE ONE Administration Protocol Ondansetron HCl 4 mg 07/17/24 08:30 07/17/24 08:58 Ondansetron Hcl 4 Mg/2 Ml Vial IVPUSH 07/17/24 08:31 4 mg ONCE ONE Administration Pantoprazole Sodium 40 mg 07/17/24 13:51 07/17/24 14:01 Pantoprazole Sodium 40 Mg/10 Ml Vial IVPUSH 07/17/24 13:52 40 mg ONCE ONE Administration Prochlorperazine Edisylate 5 mg 07/17/24 10:14 07/17/24 10:21 Prochlorperazine Edisylate 10 Mg/2 Ml Vial IVPUSH 07/17/24 10:15 5 mg ONCE ONE Administration Critical Care Time Critical Care Time Critical Care Time: No Discharge Plan Discharge Clinical Impression: Abdominal pain, Nausea & vomiting Patient Disposition: Home, Self-Care Instructions: Acute Nausea and Vomiting (ED), Abdominal Pain (ED) Additional Instructions: Take your medications as prescribed. If you were prescribed antibiotics today, it is important that you take your medication to their entirety, do not skip any doses, do not finish them early. Follow-up with your primary care provider this week. Return to the emergency department with new or worsening symptoms. Such as fevers, chills, chest pain, shortness of breath, nausea, vomiting, dizziness, headache, vision changes, lethargy In case of emergency call 911 CT/CT abdomen pelvis w IV con IMPRESSION: Concerning acute colitis in the correct clinical settings. Left periumbilical fat-containing moderate to large hernia and small fat-containing umbilical hernia. Diverticular disease, left hemicolon. Cholelithiasis. Coronary artery disease. Multilevel thoracolumbar spondylosis. Fleischner guidelines were followed. Prescriptions: New loperamide 2 mg capsule 2 mg PO Q6H PRN (Reason: loose stool) Qty: 20 0RF ondansetron 4 mg tablet,disintegrating 4 mg PO Q6H PRN (Reason: nausea and vomiting) Qty: 14 0RF No Action gabapentin 300 mg Capsule 300 mg PO BID omeprazole 20 mg Capsule,Delayed Release(Dr/Ec) 20 mg PO BID@0630,1630 hydroxyzine pamoate 25 mg Capsule 50 mg PO BEDTIME PRN (Reason: Anxiety) duloxetine 10 mg PO BEDTIME amlodipine 10 mg Tablet 10 mg PO DAILY gabapentin 400 mg Capsule 400 mg PO BEDTIME levothyroxine 175 mcg Tablet 175 mcg PO DAILY@0600 prazosin 5 mg Capsule 5 mg PO BEDTIME cetirizine 10 mg Tablet 10 mg PO DAILY sucralfate [Carafate] 100 mg/mL Suspension 10 ml PO BID@0630,1630 lisinopril-hydrochlorothiazide 20-12.5 mg Tablet 1 tab PO DAILY simvastatin 5 mg tablet 5 mg PO BEDTIME Referrals: Physician,Unknown J [Primary Care Provider] - 2 days Stand Alone Forms: Work/School Release Print Language: Serbian
--- NOTE | 2024-07-17 08:42 | PC.NURSE ---
Pt utilizing bathroom at this time. Labs/meds delayed.
[2024-07-17] MEDS: ondansetron HCL 4 MG/2 ML VIAL IVPUSH (08:58)
[2024-07-17] MEDS: Ketorolac Tromethamine 15 MG/ML VIAL IVPUSH (08:58)
[2024-07-17] MEDS: 0.9 % Sodium Chloride 1,000 ML 999 ML IV (08:58)
--- NOTE | 2024-07-17 08:59 | PC.NURSE ---
Pt laying on the floor, screaming and crying. Redirected multiple times. I need dilaudid, it's the only thing that works.
[2024-07-17 09:01] LABS: MANUAL DIFF FLAG NO
[2024-07-17 09:04] LABS: Basophils Absolute Auto 0.1 X10*3/uL (0.0-0.2); Basophils Percent Auto 0.6 % (0-2); Eosinophils Absolute Auto 0.2 X10*3/uL (0.0-0.4); Eosinophils Percent Auto 1.3 % (0-4); Hematocrit 39.5 % (37.0-47.0); Hemoglobin 13.3 g/dl (12.0-16.0); Imm Gran Abs Auto 0.08 X10*3/uL (0.00-0.03); Imm Gran Pct Auto 0.6 % (0.0-0.4); Lymphocytes Absolute Auto 1.9 X10*3/uL (1.2-4.9); Lymphocytes Percent Auto 13.4 % (20-40); Mean Corpuscular HGB Conc 33.7 g/dl (31.0-35.0); Mean Corpuscular Hemoglobin 26.1 pg (27.0-33.0); Mean Corpuscular Volume 77.6 fL (80.0-98.0); Mean Platelet Volume 10.5 fL (9.4-12.3); Monocytes Absolute Auto 0.6 X10*3/uL (0.1-1.2); Monocytes Percent Auto 4.2 % (2-11); Neutrophils Absolute Auto 11.3 x10*3/uL (2.0-8.3); Neutrophils Percent Auto 79.9 % (45-73); Platelet Count 365 X10*3/uL (160-400); Red Blood Count 5.09 X10*6/uL (4.20-5.50); Red Cell Distribution Width 15.9 % (11.0-16.0); White Blood Count 14.1 X10*3/uL (4.8-10.8)
[2024-07-17 09:24] LABS: Albumin Level 4.3 g/dL (3.5-5.0); Anion Gap 16 (12-20); Aspartate Amino Transferase 24 U/L (5-31); Bilirubin Direct 0.1 mg/dL (0.0-0.5); Bilirubin Total 0.4 mg/dL (0.0-1.0); Blood Urea Nitrogen 15 mg/dL (9-16); Calcium 9.5 mg/dL (8.4-10.2); Carbon Dioxide 18 mmol/L (22-29); Chloride 112 mmol/L (96-108); Creatinine Clr Calc Pharmacy 65.2; Estimated Glomerular Filt Rate 54; Glucose Random 168 mg/dL (60-115); Lipase 36 U/L (8-78); Magnesium 1.9 mg/dL (1.6-2.6); Potassium 3.2 mmol/L (3.3-5.1); Sodium 143 mmol/L (135-145); Total Protein 7.5 g/dL (6.5-8.0)
--- NOTE | 2024-07-17 09:54 | PC.NURSE ---
Pt to radiology.
[2024-07-17] MEDS: iohexoL 350 MG/ML 100 ML INFUS..BTL IV (10:14)
[2024-07-17] MEDS: Potassium Chloride/H20 10 MEQ/100 ML PIGGYBACK 100 MEQ IV (10:17)
[2024-07-17] MEDS: Morphine Sulfate 4 MG/ML CARTRIDGE IVPUSH (10:17)
[2024-07-17] MEDS: Prochlorperazine Edisylate 10 MG/2 ML VIAL 5 MG IVPUSH (10:21)
[2024-07-17] MEDS: diphenhydrAMINE HCL 50 MG/ML VIAL IVPUSH (10:22)
[2024-07-17 10:27] LABS: INTERNATIONAL NORM RATIO 0.9 (0.9-1.1); Prothrombin Time 10.2 SEC (10.9-12.4)
[2024-07-17 10:30] LABS: Alanine Aminotransferase 18 U/L (0-31); Alkaline Phosphatase 89 U/L (39-117); Ethanol < 10 mg/dL
[2024-07-17 10:37] LABS: Lactic Acid 1.9 mmol/L (0.5-2.0)
--- NOTE | 2024-07-17 10:51 | PC.NURSE ---
Pt no longer restless or dry heaving, resting comfortably on stretcher.
[2024-07-17] MEDS: lisinopriL 20 MG TABLET PO (11:50)
[2024-07-17] MEDS: hydroCHLOROthiazide 12.5 MG TABLET PO (11:50)
--- NOTE | 2024-07-17 11:50 | PC.NURSE ---
20G to LAC. Tolerated insertion well. Good blood return and flushes without difficulty or reported pain per pt.
--- NOTE | 2024-07-17 12:12 | PC.NURSE ---
Pt pulled out IV while rolling around in stretcher, new one placed to RAC #20.
--- NOTE | 2024-07-17 12:32 | MHC.EDTECH ---
Reminded patient that we need to obtain a urine sample. Patient states, I don't need to pee right now . I asked the patient to let myself or the nurse know when she needs to urinate so we can obtain a urine sample. Patient agreed to let us know when she needs to urinate so we can collect the sample. Patient states she is comfortable. Resting quietly. Call hull placed within reach.
[2024-07-17 13:44] LABS: Appearance Urine Clear; Color Urine Yellow; Glucose Urine UA Negative (Negative); Leukocyte Esterase Urine Negative (Negative); Nitrite Urine Negative (Negative); Urine Blood Negative (Negative); Urine Ketones Negative (Negative); Urine Protein Negative (Neg-Trace)
[2024-07-17 13:50] LABS: Amphetamine Screen Urine Not Detected (Not Detect); Barbiturates, Urine Not Detected (Not Detect); Benzodiazepines Screen Urine Not Detected (Not Detect); Buprenorphine Scr Not Detected (Not Detect); Cannabinoid Screen Urine POSITIVE (Not Detect); Cocaine Screen Urine Not Detected (Not Detect); Fentanyl, urine Not Detected (Not Detect); Methadone Screen, Urine Not Detected (Not Detect); Opiate Screen Urine POSITIVE (Not Detect); Oxycodone Screen Urine Not Detected (Not Detect); Phencyclidine Screen Urine Not Detected (Not Detect)
--- NOTE | 2024-07-17 13:52 | PC.NURSE ---
Pt reports nausea has returned as well as vomiting and stomach burning, Shelley TIRADO made aware.
[2024-07-17] MEDS: HYDROmorphone HCl 1 MG/ML SYRINGE IVPUSH (14:01)
[2024-07-17] MEDS: Pantoprazole Sodium 40 MG/10 ML VIAL IVPUSH (14:01)
--- NOTE | 2024-07-17 14:41 | PC.NURSE ---
Pt reporting feeling much better and ready for discharge home. VS repeated.
== END 2024-07-17 14:59 | disposition home or self-care (01) ==
PROVIDERS: Physician Assistant; Emergency Provider Emergency Medicine Emergency Medical Services
DX: R11.2 Nausea with vomiting, unspecified (principal); R10.9 Unspecified abdominal pain; R19.7 Diarrhea, unspecified; E03.9 Hypothyroidism, unspecified; I10 Essential (primary) hypertension; Z79.899 Other long term (current) drug therapy
CPT/HCPCS: 36415; 74177; 80048; 80076; 80307; 81003; 83605; 83690; 83735; 85025; 85610; 87040; 87205; 96361; 96374; 96375; 99284; J0737; J1171; J1200; J1885; J2270; J2405; J2470; J3480; Q9967

== ENCOUNTER → 2024-07-17 09:19 | Outpatient (BNV) | payer MEDICARE, MEDICAID, SELFPAY | PROVIDERS: Emergency Provider Emergency Medicine Emergency Medical Services; Visit Provider Radiology Diagnostic Radiology | DX: K42.9 Umbilical hernia without obstruction or gangrene (principal); K57.30 Diverticulosis of large intestine without perforation or abscess without bleeding; I25.10 Atherosclerotic heart disease of native coronary artery without angina pectoris; M47.895 Other spondylosis, thoracolumbar region | CPT/HCPCS: 74177 ==

== ENCOUNTER 2024-07-20 07:37 | Emergency (ER) | payer MEDICARE, MEDICAID, SELFPAY ==
[2024-07-20] VITALS (13 sets, daily range): BP systolic 158–230; BP diastolic 78–125; PULSE 67–85; RESP 16–20; TEMP 36.6–37.3; O2SAT 94–100; BMI 32.9
--- NOTE | 2024-07-20 07:51 | ED_ITS ---
HPI - Abdominal Pain General Chief Complaint: Abdominal Pain Stated Complaint: ABD PAIN,VOMITING X2D,BP 200/100 PER EMS Time Seen by Provider: 07/20/24 07:40 Source: patient, EMS, RN notes reviewed and old records reviewed Mode of arrival: EMS History of Present Illness ED Provider: Modesta Gomez PA-C HPI narrative: 54-year-old female with a past medical history of acute pancreatitis, Schatzki ring, diverticular disease, hiatal hernia, hypothyroid, obesity, presenting to the ED via EMS complaining of diffuse abdominal pain, nausea, vomiting x early this morning. Patient was evaluated in our ED on 07/17 for similar symptoms, CT concerning for colitis. Denies taking antihypertensive medications this morning. Denies diarrhea, constipation, dysuria/hematuria, fever/chills Related Data Home Medications ?Medication ?Instructions ?Recorded ?Confirmed simvastatin 5 mg tablet 5 mg PO BEDTIME 11/08/20 01/22/24 gabapentin 300 mg capsule 300 mg PO BID 10/17/21 01/22/24 hydroxyzine pamoate 25 mg capsule 50 mg PO BEDTIME PRN Anxiety 10/17/21 01/22/24 omeprazole 20 mg capsule,delayed 20 mg PO BID@0630,1630 10/17/21 01/22/24 release amlodipine 10 mg tablet 10 mg PO DAILY 11/19/23 01/22/24 cetirizine 10 mg tablet 10 mg PO DAILY 11/19/23 01/22/24 gabapentin 400 mg capsule 400 mg PO BEDTIME 11/19/23 01/22/24 levothyroxine 175 mcg tablet 175 mcg PO DAILY@0600 11/19/23 01/22/24 lisinopril 20 1 tab PO DAILY 11/19/23 01/22/24 mg-hydrochlorothiazide 12.5 mg tablet prazosin 5 mg capsule 5 mg PO BEDTIME 11/19/23 01/22/24 sucralfate 100 mg/mL oral 10 ml PO BID@0630,1630 11/19/23 01/22/24 suspension (Carafate) duloxetine 10 mg PO BEDTIME 01/22/24 01/22/24 Previous Rx's ?Medication ?Instructions ?Recorded loperamide 2 mg capsule 2 mg PO Q6H PRN loose stool #20 07/17/24 caps ondansetron 4 mg disintegrating 4 mg PO Q6H PRN nausea and 07/17/24 tablet vomiting #14 tabs Allergies Allergy/AdvReac Type Severity Reaction Status Date / Time Penicillins Allergy Severe Anaphylaxis Verified 07/20/24 07:50 Review of Systems Review of Systems Yes all other systems are reviewed and are negative Constitutional: Reports as per [facility] Past Medical History Attestation statement: The following information was validated with the patient. Source: old records reviewed Medical History Foreign body (FB) in soft tissue Personal history of nicotine dependence Hyperlipidemia Nausea & vomiting Hypochromic microcytic anemia Obesity due to excess calories Hypothyroidism Osteoarthritis Essential hypertension Surgical History History of hernia surgery History of shoulder surgery History of tonsillectomy History of colonoscopy History of esophagogastroduodenoscopy (EGD) History of carpal tunnel release Family History Family History Father Lung cancer Mother Congestive heart failure Type 2 diabetes mellitus Social History Social History Household Members: Family Household Members Other:: 2 Housing: House Housing Other:: sober community Do you presently have visiting nurse or other home services: No Unable to assess alcohol history related to: Unknown Alcohol intake: former Comment: patient is 1:1 supervision Patient Tobacco Use Status: Current everyday Tobacco user Tobacco use type: Smokeless Tobacco Years Smoked: 20 Smoked in Last 30 Days: No Use of substances other than those prescribed or required for medical reasons: Unknown Substance Use Type: Marijuana Advance Directives: No Advance Directives Information Provided: Yes Do you have a plan to hurt others: No Plan service: No Current occupational status: employed Physical Exam ED Vital Signs: Vital Signs - 24 hr 07/20/24 07:49 07/20/24 08:08 07/20/24 08:09 Temperature 98.3 F Pulse Rate 76 Respiratory Rate 20 Blood Pressure 230/101 H 230/101 H 230/101 H Pulse Oximetry 100 Oxygen Delivery Method Room Air 07/20/24 10:00 07/20/24 10:39 07/20/24 13:03 Temperature 98.4 F 99.2 F Pulse Rate 73 79 67 Respiratory Rate 16 18 18 Blood Pressure 158/104 H 174/96 H 166/101 H Pulse Oximetry 94 98 100 Oxygen Delivery Method Room Air Room Air Room Air 07/20/24 14:19 07/20/24 14:47 07/20/24 15:19 Temperature Pulse Rate 83 84 84 Respiratory Rate 18 20 Blood Pressure 224/125 H 185/97 H 216/113 H Pulse Oximetry 97 Oxygen Delivery Method Room Air 07/20/24 15:26 07/20/24 15:52 Temperature Pulse Rate 79 Respiratory Rate 18 Blood Pressure 216/113 H 167/78 H Pulse Oximetry 98 Oxygen Delivery Method Room Air BMI result Body Mass Index 32.9 Const Other: Yelling, walking around exam room General: no acute distress Orientation/consciousness: patient oriented x3 Limitations: no limitations HENMT Head: Yes normal to inspection and Yes atraumatic Ears: hearing grossly normal bilaterally General nose exam: Normal external nose present Face and sinus: Yes normal facial exam Eyes General: appearance normal, both eyes and all related structures EOM: EOMs intact bilaterally Neck Neck: Yes normal visual inspection and Yes no meningeal signs Resp Effort & Inspection: normal respiratory effort and no respiratory distress Auscultation: clear to auscultation bilaterally Cardio Rate: regular rate Heart sounds: S1 normal heart sound present and S2 normal heart sound present GI Inspection: Yes normal to inspection Palpation (GI): Soft to palpation, nontender, no guarding and not rigid General: Yes no CVA tenderness Back/Spine/Pelvis Back: no CVA tenderness Skin Rashes: no rashes Wounds: no wounds Neuro General: patient oriented x3, tone normal and no meningeal signs Cranial nerves: Yes CN's II-XII intact bilaterally Gait exam (Neuro): Normal gait present Extrem General: Yes normal to inspection Course Course Course Narrative: -1010--BP improving to 150/104. Leukocytosis of 16.0 likely from nausea/vomiting and retching. Still low suspicion for severe sepsis -AST/ALT mildly elevated -1035--on re-evaluation patient is sleeping comfortably in stretcher. BP improved to 174/96 -1259--on re-evaluate patient still sleeping comfortably. [place]. Will p.o. trial. -1359--patient tolerated p.o. Jessika Nazia and saltines. BP has re-elevated. Will give 5 mg of IV labetalol and re-evaluate. > patient difficult to obtain accurate blood pressure, during cycle constantly moving/self inducing dry heaving. >> offered admission multiple times however patient states she would like to go home. Has tolerated more p.o. Jessika nazia w/o N/V, blood pressure 200/101. Will give 0.1 mg of PO clonidine. Patient states her blood pressure is always elevated. Denies CP/headache -1555--blood pressure now 167/78. Plan to DC home Results discussed with patient including worrisome signs and symptoms and strict return precautions, and when to return to the emergency department. They verbalized understanding and feel safe for discharge at this time. Medical Decision Making Medical Decision Making MDM Narrative: 54-year-old female with a past medical history of acute pancreatitis, Schatzki ring, diverticular disease, hiatal hernia, hypothyroid, obesity, presenting to the ED via EMS complaining of diffuse abdominal pain, nausea, vomiting x early this morning. On exam hypertensive, likely from pain and yelling, did not take antihypertensives this morning, abdomen is soft and nontender. Patient is nontoxic appearing. Concern for acute on chronic abdominal pain vs colitis. Diverticulitis/diverticular disease, pancreatitis, gastroenteritis and appendicitis on differential, however lower without tenderness on exam and CT on 07/17 showing acute colitis suspected to be viral. Low suspicion for cholecystitis/lithiasis or severe sepsis at this time. Unlikely ischemic bowel or strangulated/incarcerated hernia Plan: Labs, UA, pain control. No need for repeat CT at this time. We will give home dose of antihypertensives and re-evaluate Please refer to course for remaining clinical decision making, interpretation of labs/imaging results, and discussions with consultants and/or family members. Differential Diagnosis Differential Diagnoses: The differential diagnosis associated with the presentation includes As above Admission/Observation Consideration of admission/observation: Escalation of care including admission/observation considered Lab Data MDM Lab Attestation statement: I reviewed the patient's lab results. 07/20/24 08:04 07/20/24 08:04 Labs: Lab Results 07/20/24 07/20/24 Range/Units 08:04 13:02 WBC 16.0 H (4.8-10.8) X10*3/uL RBC 5.53 H (4.20-5.50) X10*6/uL Hgb 14.5 (12.0-16.0) g/dl Hct 42.6 (37.0-47.0) % MCV 77.0 L (80.0-98.0) fL MCH 26.2 L (27.0-33.0) pg MCHC 34.0 (31.0-35.0) g/dl RDW 15.7 (11.0-16.0) % Plt Count 392 (160-400) X10*3/uL MPV 10.7 (9.4-12.3) fL Immature Gran % (Auto) 0.6 H (0.0-0.4) % Neut % (Auto) 87.1 H (45-73) % Lymph % (Auto) 8.0 L (20-40) % Falls % (Auto) 3.8 (2-11) % Eos % (Auto) 0.1 (0-4) % Baso % (Auto) 0.4 (0-2) % Lymph # (Auto) 1.3 (1.2-4.9) X10*3/uL Falls # (Auto) 0.6 (0.1-1.2) X10*3/uL Eos # (Auto) 0.0 (0.0-0.4) X10*3/uL Baso # (Auto) 0.1 (0.0-0.2) X10*3/uL Abs Immat Gran (auto) 0.09 H (0.00-0.03) X10*3/uL Absolute Neuts (auto) 14.0 H (2.0-8.3) x10*3/uL Absolute Nucleated RBC 0.000 (0.0-0.012) X10*3/uL Nucleated RBC % (auto) 0.0 (0.0-0.2) /100WBC Sodium 140 (135-145) mmol/L Potassium 3.4 (3.3-5.1) mmol/L Chloride 104 (96-108) mmol/L Carbon Dioxide 22 (22-29) mmol/L Anion Gap 17 (12-20) BUN 16 (9-16) mg/dL Creatinine 1.10 (0.5-1.4) mg/dL Estim Creat Clear Calc 67.7 Estimated GFR 51 Random Glucose 173 H (60-115) mg/dL Calcium 9.9 (8.4-10.2) mg/dL Magnesium 1.8 (1.6-2.6) mg/dL Total Bilirubin 0.9 (0.0-1.0) mg/dL Direct Bilirubin 0.2 (0.0-0.5) mg/dL AST 87 H (5-31) U/L ALT 63 H (0-31) U/L Alkaline Phosphatase 93 (39-117) U/L Total Protein 8.4 H (6.5-8.0) g/dL Albumin 4.8 (3.5-5.0) g/dL Lipase 17 (8-78) U/L Urine Color Yellow Urine Appearance Clear Urine pH 8.0 (5.0-9.0) Ur Specific [place] 1.015 (1.005-1.025) Urine Protein 30 (1+) H (Neg-Trace) mg/dL Urine Glucose (UA) 100 H (Negative) mg/dL Urine Ketones Negative (Negative) mg/dL Urine Blood Negative (Negative) Urine Nitrite Negative (Negative) Ur Leukocyte Esterase Negative (Negative) Urine RBC 0-2 (0-2) /HPF Urine WBC 0-5 (0-5) /HPF Ur Squamous Epith Cells 0-2 (0-2) /HPF Urine Bacteria None Seen (None Seen) Hyaline Casts 0-2 (0-2) /LPF Urine Opiates Screen Not Detected (Not Detect) Ur Buprenorphine Scrn Not Detected (Not Detect) ng/mL Ur Oxycodone Screen Not Detected (Not Detect) ng/mL Urine Methadone Screen Not Detected (Not Detect) ng/mL Urine Fentanyl Screen Not Detected (Not Detect) Ur Barbiturates Screen Not Detected (Not Detect) Ur Phencyclidine Scrn Not Detected (Not Detect) Ur Amphetamines Screen Not Detected (Not Detect) U Benzodiazepines Scrn Not Detected (Not Detect) Urine Cocaine Screen Not Detected (Not Detect) U Marijuana (THC) Screen POSITIVE H (Not Detect) Radiology Impression Discussion of test interpretation with radiology: I have reviewed the radiologist's reading. Independent Historian Clinical information obtained from an independent historian. History obtained from or confirmed by: EMS External Record Review External record reviewed: Inpatient record, Office record, Outpatient record, Prior outpatient labs, Prior outpatient radiology, Primary care record and Outside ED record Tests considered The following testing was considered but not selected: As above Prescription Management I considered prescription management with: Pain Medication Chronic Conditions Patient?s care impacted by: Other Social Determinants Patient?s care significantly limited by Social Determinants of Health including: Inadequate housing, Alcoholism and drug addiction in family, Problems related to primary support group and Other Social Determinant of Health Medications Administered Discontinued Medications Generic Name Dose Route Start Last Admin Trade Name Jd PRN Reason Stop Dose Admin Clonidine HCl 0.1 mg 07/20/24 15:11 07/20/24 15:26 Clonidine Hcl 0.1 Mg Tablet PO 07/20/24 15:12 0.1 mg ONCE ONE Administration Protocol Diphenhydramine HCl 50 mg 07/20/24 11:42 07/20/24 11:54 Diphenhydramine Hcl 50 Mg/Ml Vial IVPUSH 07/20/24 11:43 50 mg ONCE ONE Administration Hydrochlorothiazide 12.5 mg 07/20/24 07:56 07/20/24 08:09 Hydrochlorothiazide 12.5 Mg Tablet PO 07/20/24 07:57 12.5 mg ONCE ONE Administration Protocol Ketorolac Tromethamine 15 mg 07/20/24 07:49 07/20/24 08:08 Ketorolac Tromethamine 15 Mg/Ml Vial IVPUSH 07/20/24 07:50 15 mg ONCE ONE Administration Labetalol HCl 5 mg 07/20/24 13:56 07/20/24 14:19 Labetalol Hcl 100 Mg/20 Ml Vial IVPUSH 07/20/24 13:57 5 mg ONCE ONE Administration Lisinopril 20 mg 07/20/24 07:56 07/20/24 08:08 Lisinopril 20 Mg Tablet PO 07/20/24 07:57 20 mg ONCE ONE Administration Protocol Lorazepam 1 mg 07/20/24 07:49 07/20/24 08:08 Lorazepam 2 Mg/Ml Vial IVPUSH 07/20/24 07:50 1 mg ONCE ONE Administration Metoclopramide HCl 10 mg 07/20/24 11:42 07/20/24 11:54 Metoclopramide Hcl 10 Mg/2 Ml Vial IVPUSH 07/20/24 11:43 10 mg ONCE ONE Administration Ondansetron HCl 4 mg 07/20/24 07:49 07/20/24 08:08 Ondansetron Hcl 4 Mg/2 Ml Vial IVPUSH 07/20/24 07:50 4 mg ONCE ONE Administration Critical Care Time Critical Care Time Critical Care Time: Yes Total Critical Care Time: 40 Attestation: I have personally provided critical care time exclusive of time spent on separately billable procedures. Time includes review of lab data, radiology results, discussion with consultants, and monitoring for potential decompensation. Intervention performed as documented. Discharge Plan Discharge Clinical Impression: Abdominal pain, Nausea & vomiting, Uncontrolled hypertension Patient Disposition: Home, Self-Care Instructions: Acute Nausea and Vomiting (ED), Abdominal Pain (ED), Hypertension (ED) Additional Instructions: YOU NEED TO TAKE YOUR BLOOD PRESSURE MEDICATION AT HOME THIS IS VERY IMPORTANT MONITOR YOUR BLOOD PRESSURE IF HIS PERSISTENTLY ELEVATED RETURN TO THE ED IMMEDIATELY Please have close follow-up with gastroenterology. If you have persistent or worsening abdominal pain, nausea/vomiting, fevers return to the ED Prescriptions: No Action gabapentin 300 mg Capsule 300 mg PO BID omeprazole 20 mg Capsule,Delayed Release(Dr/Ec) 20 mg PO BID@0630,1630 hydroxyzine pamoate 25 mg Capsule 50 mg PO BEDTIME PRN (Reason: Anxiety) duloxetine 10 mg PO BEDTIME loperamide 2 mg capsule 2 mg PO Q6H PRN (Reason: loose stool) Qty: 20 0RF ondansetron 4 mg tablet,disintegrating 4 mg PO Q6H PRN (Reason: nausea and vomiting) Qty: 14 0RF amlodipine 10 mg Tablet 10 mg PO DAILY gabapentin 400 mg Capsule 400 mg PO BEDTIME levothyroxine 175 mcg Tablet 175 mcg PO DAILY@0600 prazosin 5 mg Capsule 5 mg PO BEDTIME cetirizine 10 mg Tablet 10 mg PO DAILY sucralfate [Carafate] 100 mg/mL Suspension 10 ml PO BID@0630,1630 lisinopril-hydrochlorothiazide 20-12.5 mg Tablet 1 tab PO DAILY simvastatin 5 mg tablet 5 mg PO BEDTIME Referrals: [facility] [Provider Group] Physician,Unknown J [Primary Care Provider] - Print Language: Mauritanian
[2024-07-20] MEDS: ondansetron HCL 4 MG/2 ML VIAL IVPUSH (08:08)
[2024-07-20] MEDS: LORazepam 2 MG/ML VIAL 1 MG IVPUSH (08:08)
[2024-07-20] MEDS: lisinopriL 20 MG TABLET PO (08:08)
[2024-07-20] MEDS: Ketorolac Tromethamine 15 MG/ML VIAL IVPUSH (08:08)
[2024-07-20] MEDS: hydroCHLOROthiazide 12.5 MG TABLET PO (08:09)
[2024-07-20 08:13] LABS: MANUAL DIFF FLAG NO
[2024-07-20 08:16] LABS: Basophils Absolute Auto 0.1 X10*3/uL (0.0-0.2); Basophils Percent Auto 0.4 % (0-2); Eosinophils Percent Auto 0.1 % (0-4); Hematocrit 42.6 % (37.0-47.0); Hemoglobin 14.5 g/dl (12.0-16.0); Imm Gran Abs Auto 0.09 X10*3/uL (0.00-0.03); Imm Gran Pct Auto 0.6 % (0.0-0.4); Lymphocytes Absolute Auto 1.3 X10*3/uL (1.2-4.9); Mean Corpuscular Hemoglobin 26.2 pg (27.0-33.0); Mean Platelet Volume 10.7 fL (9.4-12.3); Monocytes Absolute Auto 0.6 X10*3/uL (0.1-1.2); Monocytes Percent Auto 3.8 % (2-11); Neutrophils Percent Auto 87.1 % (45-73); Platelet Count 392 X10*3/uL (160-400); Red Blood Count 5.53 X10*6/uL (4.20-5.50); Red Cell Distribution Width 15.7 % (11.0-16.0)
--- NOTE | 2024-07-20 08:30 | PC.NURSE ---
patient whaling in discomfort and extremely restless and getting up and down of stretcher and going to bathroom around corner. patient keeps saying please help me my abdomen hurts patient unable to participate in conversation with MD well.
[2024-07-20 08:38] LABS: Albumin Level 4.8 g/dL (3.5-5.0); Anion Gap 17 (12-20); Aspartate Amino Transferase 87 U/L (5-31); Bilirubin Direct 0.2 mg/dL (0.0-0.5); Bilirubin Total 0.9 mg/dL (0.0-1.0); Blood Urea Nitrogen 16 mg/dL (9-16); Calcium 9.9 mg/dL (8.4-10.2); Carbon Dioxide 22 mmol/L (22-29); Chloride 104 mmol/L (96-108); Creatinine Clr Calc Pharmacy 67.7; Estimated Glomerular Filt Rate 51; Glucose Random 173 mg/dL (60-115); Lipase 17 U/L (8-78); Magnesium 1.8 mg/dL (1.6-2.6); Potassium 3.4 mmol/L (3.3-5.1); Sodium 140 mmol/L (135-145); Total Protein 8.4 g/dL (6.5-8.0)
--- NOTE | 2024-07-20 09:12 | PC.NURSE ---
patient resting comfortably on stretcher with blankets and sleeping. even unlabored respirations.
[2024-07-20 10:54] LABS: Alanine Aminotransferase 63 U/L (0-31); Alkaline Phosphatase 93 U/L (39-117)
--- NOTE | 2024-07-20 11:45 | PC.NURSE ---
patient given small sip of water and about 20 minutes after started vomiting again. patient failed PO trial. aware
[2024-07-20] MEDS: Metoclopramide HCl 10 MG/2 ML VIAL IVPUSH (11:54)
[2024-07-20] MEDS: diphenhydrAMINE HCL 50 MG/ML VIAL IVPUSH (11:54)
[2024-07-20 13:12] LABS: Appearance Urine Clear; Color Urine Yellow; Glucose Urine UA 100 mg/dL (Negative); Leukocyte Esterase Urine Negative (Negative); Nitrite Urine Negative (Negative); Specific Gravity - Urine 1.015 (1.005-1.025); UMIC TRIGGER UACC YES; Urine Blood Negative (Negative); Urine Ketones Negative (Negative); Urine Protein 30 (1+) mg/dL (Neg-Trace)
[2024-07-20 13:24] LABS: Bacteria Urine None Seen (None Seen); Hyaline Casts Urine 0-2 /LPF (0-2); RBC Urine 0-2 /HPF (0-2); Squamous Epithelial Cell Urine 0-2 /HPF (0-2); WBC Urine 0-5 /HPF (0-5)
[2024-07-20 13:26] LABS: Amphetamine Screen Urine Not Detected (Not Detect); Barbiturates, Urine Not Detected (Not Detect); Benzodiazepines Screen Urine Not Detected (Not Detect); Buprenorphine Scr Not Detected (Not Detect); Cannabinoid Screen Urine POSITIVE (Not Detect); Cocaine Screen Urine Not Detected (Not Detect); Fentanyl, urine Not Detected (Not Detect); Methadone Screen, Urine Not Detected (Not Detect); Opiate Screen Urine Not Detected (Not Detect); Oxycodone Screen Urine Not Detected (Not Detect); Phencyclidine Screen Urine Not Detected (Not Detect)
[2024-07-20] MEDS: Labetalol HCL 100 MG/20 ML VIAL IVPUSH (14:19)
[2024-07-20] MEDS: cloNIDine HCL 0.1 MG TABLET PO (15:26)
== END 2024-07-20 16:05 | disposition home or self-care (01) ==
PROVIDERS: Physician Assistant; Emergency Provider Emergency Medicine
DX: R10.9 Unspecified abdominal pain (principal); R11.2 Nausea with vomiting, unspecified; I10 Essential (primary) hypertension; E78.5 Hyperlipidemia, unspecified; K85.90 Acute pancreatitis without necrosis or infection, unspecified; K22.2 Esophageal obstruction; E03.9 Hypothyroidism, unspecified; F17.210 Nicotine dependence, cigarettes, uncomplicated; F12.90 Cannabis use, unspecified, uncomplicated; Z79.899 Other long term (current) drug therapy; Z79.02 Long term (current) use of antithrombotics/antiplatelets
CPT/HCPCS: 36415; 80048; 80076; 80307; 81001; 83690; 83735; 85025; 87040; 96374; 96375; 99284; 99285; J1200; J1885; J1920; J2060; J2405; J2765

== ENCOUNTER 2024-08-13 14:40 | Emergency (ER) | payer MEDICARE, MEDICAID, SELFPAY ==
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
--- NOTE | ~2024-08-13 | XR_ITS ---
EXAMINATION: XR THORACIC SPINE CLINICAL INFORMATION: back pain COMPARISON: None available. Correlation made with CT abdomen pelvis 07/17/2024, CT chest 12/26/2021. TECHNIQUE: 3 views of the thoracic spine were obtained. FINDINGS: Normal bony mineralization. No fracture, compression deformity, subluxation, or suspicious focal bone lesion. There is a minimal right convex scoliosis, apex at T4. There is a normal thoracic kyphosis. Moderate diffuse degenerative disc changes are present throughout the thoracic spine. Mild degenerative facet changes present. Imaged soft tissues, lungs, cardiac and mediastinal structures appear normal. XR/XR thoracic spine 3V IMPRESSION: 1. No acute findings thoracic spine. 2. Mild right convex scoliosis and degenerative changes. Electronically signed by: Parminder Moralez MD 08/13/2024 04:13 PM [facility]
[2024-08-13 15:20] VITALS: BP 164/99; PULSE 74; RESP 18; TEMP 36.9; O2SAT 98; BMI 32.8
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
== END 2024-08-13 20:41 | disposition left against medical advice (07) ==
LOC: HO.ED 20:35
PROVIDERS: Emergency Provider Emergency Medicine; PCP Nurse Practitioner Family
DX: M54.50 Low back pain, unspecified (principal); M54.6 Pain in thoracic spine
CPT/HCPCS: 72072; 72100; 99281; 99283

== ENCOUNTER → 2024-08-13 15:23 | Outpatient (BNV) | payer MEDICARE, MEDICAID, SELFPAY | PROVIDERS: PCP Nurse Practitioner Family; Visit Provider Radiology Diagnostic Radiology | DX: M54.9 Dorsalgia, unspecified (principal) | CPT/HCPCS: 72072; 72100 ==

== ENCOUNTER 2024-08-30 13:36 | Emergency (ER) | payer MEDICARE, MEDICAID, SELFPAY ==
--- NOTE | ~2024-08-30 | CT_ITS ---
CLINICAL HISTORY: abd. pain, hematemesis CT abdomen and pelvis without contrast Comparison: 11/19/2023 Findings: The lung bases are clear. There is a gallstone with the gallbladder otherwise unremarkable. Solid organs are within normal limits. No renal stones. No bowel obstruction, pneumoperitoneum, or pneumatosis. Pelvic contents unremarkable. Normal appendix. There is fat extending into a ventral abdominal wall hernia. The bones are intact. IMPRESSION: No acute findings. This document has been electronically signed by: Mack Feliciano MD on 08/30/2024 17:13:06
--- NOTE | ~2024-08-30 | US_ITS ---
CLINICAL HISTORY: gallstones, n v RUQ pain US abdomen limited Comparison: CT/SR - CT ABDOMEN PELVIS WO IV CON - 08/30/24 15:49 EST Findings: The visualized pancreas is normal. The aorta and inferior vena cava are normal caliber. The liver is normal in size and echotexture. There is no intrahepatic bile duct dilatation. The common duct is 4 mm in diameter. A 2 cm mobile stone is noted within the gallbladder.. There is no sonographic Sesay sign. The main portal vein is antegrade. The right kidney is 9.6 cm in length. No ascites. IMPRESSION: Cholelithiasis, otherwise unremarkable. This document has been electronically signed by: Danny Robles MD on 08/30/2024 19:27:13
--- NOTE | ~2024-08-30 | XR_ITS ---
CLINICAL HISTORY: Chest pain with hematemesis 1 view chest x-ray Comparison: CT/SR - CT CHEST WO CON - 12/26/21 11:10 EDT Findings: The lungs are clear. Heart size is normal. No acute fracture. IMPRESSION: 1. No acute findings. This document has been electronically signed by: Smith Costa MD on 08/30/2024 14:51:33
[2024-08-30 13:48] VITALS: BP 156/117; PULSE 125; O2SAT 99; BMI 31.5
--- NOTE | 2024-08-30 13:59 | ECG_ITS ---
Test Reason : ABD PAIN Blood Pressure : */* mmHG Vent. Rate : 116 BPM Atrial Rate : 116 BPM P-R Int : 112 ms QRS Dur : 84 ms QT Int : 358 ms P-R-T Axes : 18 35 58 degrees QTcB Int : 497 ms Sinus tachycardia Nonspecific ST and T wave abnormality Abnormal ECG When compared with ECG of 28-Mar-2024 17:18, Vent. rate has increased by 40 bpm Referred By: Renzo Bedoya Electronically Signed By: Peña Roper
--- OUTSIDE RECORDS SUMMARY | 2024-08-30 14:02 | XMS_ITS | Encounter Summary ---
Author Organization [employer] Address [address] 7t [place] [address] Care Team Providers Care It Programmer Name Role Phone RolyLeidy SHAYE Primary Care Provider [phone] Encounter Details Date Type Department Care Team ([facility] st Contact Info) Description 08/04/2024 Telephone [facility] [address] [place], [place] [phone] Lorraine Garcia, CIARA Social History Tobacco Use Types Packs/Day Years Used Date Smoking Tobacco: Former Cigarettes S tarted: 1979 Passive Smoke Exposure: Current Smokeless Tobacco: Never Comments:Pt uses vapes Alcohol Use Standard Drinks/Week Comments Never 0 (1 standard drink = 0.6 oz pur e alcohol) Depression Answer Date Recorded Patient Health Questionnaire-9 Score 2 12/07/2022 Housing Stability Answer Date Recorded What is your housing situation today? I have briseyda blackman 01/28/[address] you li ve. Do you have problems with any of the following? None of the above 01/28/2024 Food Insecurity Answer Date Recorded Within the past 12 months, y ou worried that your food would run out before you got money to buy more: Never True 01/28/2024 Within the past 12 months,th e food you bought just didn't last and you didn't have enough money to get more: Never True 08/2023 Transportation Answer Date Recorded In the past 12 months, has l ack of transportation kept you from medical appts, meetings, work or from getting things needed for daily living? No 01/28/2024 Utilities Answer Date Recorded In the past 12 months, has t he electric, gas, oil or water company threatened to shut off services in your home? No 01/28/2024 Depression Answer Date Recorded Patient Health Questionnaire-2 Score 1 12/07/2022 Internet Access Answer Date Recorded Internet Access Q1 No 03/28/2024 Internet Access Q2 I do not want or need it 02/28 Comments Unknown Sex and Gender Information Value Date Recorded Sex Assigned at Female 05/28/2022 10:37 AM EDT Legal Sex Female 10:37 AM EDT Gender Identity Female 05/28/2022 10:37 AM EDT Sexual Orientation Straight 02/02/2023 7: 55 AM EDT documented as of this encounter Miscellaneous Notes * Telephone Encounter - Lorraine Garcia RN - 08/04/2024 10:44 AM EST Pre-op note from 06/12/24 and physical note from 01/28/24 faxed to [facility] [place], confirmation received and forms placed in H.I.M scanning bin. documented in this encounter Plan of Treatment Upcoming Encounters Date Type Department Care Team (Late st Contact Info) Description 09/07/2024 1:45 PM EST Office Visit [facility] [address] [place] [address] Leidy Dunham NP [address] [place] [address] 09/22/2024 9:45 AM EST Office Visit [address] [address] documented as of this encounter Visit Diagnoses Not on filedocumented in this encounter Additional Health Concerns Assessment Noted Time PHQ-9 Depression Total Score: 2 12/08/19 23 1:16 PM EDT documented as of this encounter Care Teams It Programmer Relationship Specialty Start Date End Date Leidy Dunham NP [address] [place] [address] PCP - General Family Medicine 03/31/24 documented as of this encounter
--- OUTSIDE RECORDS SUMMARY | 2024-08-30 14:02 | XMS_ITS | Encounter Summary ---
Author Organization [employer] Address [address] [place] [address] 7t [place] [address] Care Team Providers Care Childcare Teacher Name Role Phone Josette Stuart Primary Care Provider [phone] Josette Stuart Primary Care Provider [phone] Leidy Dunham NP Primary Care Provider [phone] Encounter Details Date Type Department Care Team ([facility] Contact Info) Description 04/11/2023 Abstract [facility] MEDICINE [address] [place] [address] Josette Stuart FNP [address] [place], [place] [phone] Social History Tobacco Use Types Packs/Day Years Used Date Smoking Tobacco: Former Cigarettes S tarted: 1979 Smokeless Tobacco: Never Comments:Has stopped on and off for several years, smokes less than 1 cig per day Alcohol Use Standard Drinks/Week Comments Not Currently 0 (1 standard drink = 0.6 oz pur e alcohol) Depression Answer Date Recorded Patient Health Questionnaire-9 Score 2 12/07/2022 Depression Answer Date Recorded Patient Health Questionnaire-2 Score 1 12/07/2022 Comments Unknown Sex and Gender Information Value Date Recorded Sex Assigned at Female 05/28/2022 10:37 AM EDT Legal Sex Female 10:37 AM EDT Gender Identity Female 05/28/2022 10:37 AM EDT Sexual Orientation Straight 02/02/2023 7: 55 AM EDT documented as of this encounter Plan of Treatment Upcoming Encounters Date Type Department Care Team (Late Contact Info) Description 09/07/2024 1:45 PM EST Office Visit [facility] [address] [place] [address] Leidy Dunham, SHAYE [address] [place] [address] 09/22/2024 9:45 AM EST Office Visit [facility] [place] [address] documented as of this encounter Procedures Procedure Name Priority Date/Time Associated Diagnosis Comments BIOPSY CERVIX Routine 08/15/2022 12:00 AM EST documented in this encounter Results * Biopsy cervix (08/15/2022 12:00 AM EST) us Historical Provider MD IN CLINIC/BEDSIDE ORDERAB LES Final Result documented in this encounter Visit Diagnoses Not on filedocumented in this encounter Additional Health Concerns Assessment Noted Time PHQ-9 Depression Total Score: 2 12/08/19 23 1:16 PM EDT documented as of this encounter Care Teams Childcare Teacher Relationship Specialty Start Date End Date [place] [address] PCP - General Family Medicine 04/30/22 01/27/24 [place] [address] PCP - General Family Medicine 01/28/24 03/30/24 [place] [address] PCP - General Family Medicine 03/31/24 documented as of this encounter
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
--- OUTSIDE RECORDS SUMMARY | 2024-08-30 14:02 | XMS_ITS | Encounter Summary ---
Author Organization [employer] Address [address] 7t [place] [address] Care Team Providers Care Dope Maintenance Worker Name Role Phone Leidy Dunham SHAYE Primary Care Provider [phone] Encounter Details Date Type Department Care Team (Latest Contact Info) Description 08/25/2024 Travel Social History Tobacco Use Types Packs/Day Years [...] Description 09/07/2024 1:45 PM EST Office Visit [facility] MEDICINE [address] [place] [address] Leidy Dunham NP [address] [place] [address] 09/22/2024 9:45 AM EST Office Visit [address] [address] documented as of this encounter Visit Diagnoses Not on filedocumented in this encounter Additional Health Concerns Assessment Noted Time PHQ-9 Depression Total Score: 2 12/08/19 23 1:16 PM EDT documented as of this encounter Care Teams Dope Maintenance Worker Relationship Specialty Start Date End Date Leidy Dunham NP [address] [place] [phone] PCP - General Family Medicine 03/31/24 documented as of this encounter
--- OUTSIDE RECORDS SUMMARY | 2024-08-30 14:02 | XMS_ITS | Encounter Summary ---
Author Organization [employer] Address [address] [facility] 7t [place] [address] Care Team Providers Care Glazier Artist Name Role Phone Gayle Dunhamily SHAYE Primary Care Provider [phone] Reason for Visit * Reason Onset Date Comments Chart Prep 08/27/2024 Encounter Details Date Type Department Care Team ([facility] st Contact Info) Description 08/27/2024 Telephone [facility] [address] [place], [place] [phone] Masha Mcgrath MA Chart Prep Social History Tobacco Use Types Packs/Day Years [...] encounter Miscellaneous Notes * Telephone Encounter - Masha Mcgrath MA - 08/27/2024 3:41 PM EST Chart Prep Labs: not applicable Images: done Vaccines due: Covid Due, Tdap Due, PCV20 Due, Flu Due, and Shingles in pharmacy Due Referrals: Ophthalmology complete Screenings: Cervical cancer Overdue care gaps: PHQ-9 documented in this encounter Plan of Treatment Upcoming Encounters Date Type Department Care Team (Late st Contact Info) Description 09/07/2024 1:45 PM EST Office Visit [address] [address] Leidy Dunham NP [address] [place] [address] 09/22/2024 9:45 AM EST Office Visit [address] [address] documented as of this encounter Visit Diagnoses Not on filedocumented in this encounter Additional Health Concerns Assessment Noted Time PHQ-9 Depression Total Score: 2 12/08/19 23 1:16 PM EDT documented as of this encounter Care Teams Glazier Artist Relationship Specialty Start Date End Date Leidy Dunham NP [address] [place] [address] PCP - General Family Medicine 03/31/24 documented as of this encounter
--- OUTSIDE RECORDS SUMMARY | 2024-08-30 14:02 | XMS_ITS | Encounter Summary ---
Author Organization [employer] Address [address] 7t [place] [address] Care Team Providers Care Land Leases And Rentals Manager Name Role Phone Josette Stuart Primary Care Provider [phone] Josette Stuart Primary Care Provider [phone] Leidy Dunham NP Primary Care Provider [phone] Encounter Details Date Type Department Care Team (Late st Contact Info) Description 09/06/2023 Orders Only [facility] PEDS [address] [place] [address] Josette Stuart FNP [address] [facility] [place], [place] [phone] Hypothyroidism, unspecified type (Primary Dx) Social History Tobacco Use Types Packs/Day Years Used Date Smoking Tobacco: Former Cigarettes S tarted: 1979 Passive Smoke Exposure: Current Smokeless Tobacco: Never Comments:Has stopped on and off for several years, smokes less than 1 cig per day Alcohol Use Standard Drinks/Week Comments Not Currently 0 (1 standard drink = 0.6 oz pur e alcohol) Depression Answer Date Recorded Patient Health Questionnaire-9 Score 2 12/07/2022 Housing Stability Answer Date Recorded What is your housing situation today? I have briseyda blackman 05/13/[address] you li ve. Do you have problems with any of the following? None of the above 05/13/2023 Food Insecurity Answer Date Recorded Within the past 12 months, y ou worried that your food would run out before you got money to buy more: Never True 05/13/2023 Within the past 12 months,th e food you bought just didn't last and you didn't have enough money to get more: Never True Transportation Answer Date Recorded In the past 12 months, has l ack of transportation kept you from medical appts, meetings, work or from getting things needed for daily living? No 05/13/2023 Utilities Answer Date Recorded In the past 12 months, has t he electric, gas, oil or water company threatened to shut off services in your home? No 05/13/2023 Depression Answer Date Recorded Patient Health Questionnaire-2 [...] Description 09/07/2024 1:45 PM EST Office Visit [facility] MEDICINE [address] [place] [phone] Leidy Dunham NP [address] [place], [place] [phone] 09/22/2024 9:45 AM EST Office Visit [address] [phone] documented as of this encounter Procedures Procedure Name Priority Date/Time Associated Diagnosis Comments TSH W/REFLEX TO FT4 Routine 10/16/2023 4 :02 PM EDT Hypothyroidism, unspecified type documented in this encounter Results * (ABNORMAL) TSH with Reflex to Free T4 (10/16/2023 4:02 PM EDT) TSH reflex Free T4 0.15(L) 0.32 - 4.0 uIU/mL [facility] Blood 10/16/2023 4:02 PM EDT 10/16/2023 6:04 PM EDT Josette Stuart MACHINE CELL TUBER LAB BLOOD ORDERABLES Final Resu lt [facility] [address] [place] [phone] documented in this encounter Visit Diagnoses Diagnosis Hypothyroidism, unspecified type- Primary documented in this encounter Additional Health Concerns Assessment Noted Time PHQ-9 Depression Total Score: 2 12/08/19 23 1:16 PM EDT documented as of this encounter Care Teams Land Leases And Rentals Manager Relationship Specialty Start Date End Date Josette Stuart FNP [address] [place] [address] PCP - General Family Medicine 04/30/22 01/27/24 Josette Stuart FNP [address] [place] [address] PCP - General Family Medicine 01/28/24 03/30/24 Leidy Dunham NP [address] [place] [address] PCP - General Family Medicine 03/31/24 documented as of this encounter
--- OUTSIDE RECORDS SUMMARY | 2024-08-30 14:02 | XMS_ITS | Encounter Summary ---
Author Organization [employer] Address [address] [place] [address] Care Team Providers Care Adhesive Primer Name Role Phone Josette Stuart Primary Care Provider [phone] Josette Stuart Primary Care Provider [phone] Leidy Dunham NP Primary Care Provider [phone] Encounter Details Date Type Department Care Team ([facility] st Contact Info) Description 05/27/2023 Orders Only [facility] AD[facility] DENTAL [address] [place] [address] Yoel Tam Social History Tobacco Use Types Packs/Day Years [...] Description 09/07/2024 1:45 PM EST Office Visit [facility] [place] [address] Leidy Dunham NP [address] [place] [address] 09/22/2024 9:45 AM EST Office Visit [facility] [place] [address] documented as of this encounter Visit Diagnoses Not on filedocumented in this encounter Additional Health Concerns Assessment Noted Time PHQ-9 Depression Total Score: 2 12/08/19 23 1:16 PM EDT documented as of this encounter Care Teams Adhesive Primer Relationship Specialty Start Date End Date [place] [address] PCP - General Family Medicine 04/30/22 01/27/24 [place] [address] PCP - General Family Medicine 01/28/24 03/30/24 [place] [address] PCP - General Family Medicine 03/31/24 documented as of this encounter
--- OUTSIDE RECORDS SUMMARY | 2024-08-30 14:02 | XMS_ITS | Encounter Summary ---
Author Organization [employer] Address [address] [place] [address] 7t [place] [address] Care Team Providers Care Non Destructive Evaluation Specialist Name Role Phone Josette Stuart Primary Care Provider [phone] Josette Stuart Primary Care Provider [phone] Leidy Dunham NP Primary Care Provider [phone] Encounter Details Date Type Department Care Team (Late Contact Info) Description 03/19/2023 Orders Only [facility] & PEDS [address] [place] [address] Josette Stuart FNP [address] [place] [address] Social History Tobacco Use Types Packs/Day Years [...] Description 09/07/2024 1:45 PM EST Office Visit [facility] [address] Leidy Dunham, SHAYE [address] [place] [address] 09/22/2024 9:45 AM EST Office Visit [facility] [place] [address] documented as of this encounter Visit Diagnoses Not on filedocumented in this encounter Additional Health Concerns Assessment Noted Time PHQ-9 Depression Total Score: 2 12/08/19 23 1:16 PM EDT documented as of this encounter Care Teams Non Destructive Evaluation Specialist Relationship Specialty Start Date End Date Josette [place] [address] PCP - General Family Medicine 04/30/22 01/27/24 Josette Stuart FNP [facility] [place] [address] PCP - General Family Medicine 01/28/24 03/30/24 Leidy Dunham [place] [address] PCP - General Family Medicine 03/31/24 documented as of this encounter
--- OUTSIDE RECORDS SUMMARY | 2024-08-30 14:02 | XMS_ITS | Encounter Summary ---
Author Organization [employer] Address [address] [place] [address] Care Team Providers Care Category Planner Name Role Phone Josette Stuart Primary Care Provider [phone] Josette Stuart Primary Care Provider [phone] Leidy Dunham NP Primary Care Provider [phone] Encounter Details Date Type Department Care Team (Late st Contact Info) Description 06/07/2023 Abstract [facility] [address] [place], [place] [phone] Tavon Chong DDS [address] [place], [place] [phone] Social History Tobacco Use Types Packs/Day Years [...] Description 09/07/2024 1:45 PM EST Office Visit [address] [address] Leidy Dunham NP [address] [place] [address] 09/22/2024 9:45 AM EST Office Visit [address] [address] documented as of this encounter Visit Diagnoses Not on filedocumented in this encounter Additional Health Concerns Assessment Noted Time PHQ-9 Depression Total Score: 2 12/08/19 23 1:16 PM EDT documented as of this encounter Care Teams Category Planner Relationship Specialty Start Date End Date [place] [address] PCP - General Family Medicine 04/30/22 01/27/24 [place] [address] PCP - General Family Medicine 01/28/24 03/30/24 Leidy Dunham NP [address] [place] [address] PCP - General Family Medicine 03/31/24 documented as of this encounter
--- OUTSIDE RECORDS SUMMARY | 2024-08-30 14:02 | XMS_ITS | Encounter Summary ---
Author Organization [employer] Address [address] [place] [address] 7t [place] [address] Care Team Providers Care Storage Facility Housekeeper Name Role Phone Josette Stuart Primary Care Provider [phone] Josette Stuart Primary Care Provider [phone] Leidy Dunham NP Primary Care Provider [phone] Reason for Visit * Reason Onset Date Comments Medication Question 03/19/2023 Encounter Details Date Type Department Care Team ([facility] st Contact Info) Description 03/19/2023 Telephone [facility] [address] [place], [place] [phone] Josette Stuart FNP [address] [place], [place] [phone] Medication Question Social History Tobacco Use Types Packs/Day Years Used Date Smoking Tobacco: Former Cigarettes S tarted: 1980 Smokeless Tobacco: Never Comments:Has stopped on and [...] encounter Miscellaneous Notes * Telephone Encounter - Anabell Gaspar RN - 03/19/2023 3:50 PM EDT Noted. Placed call to pt and informed. Pt agrees with plan. * Telephone Encounter - Anabell Gaspar RN - 03/19/2023 2:42 PM EDT Please review message below and advise if new rx can be sent for synthroid 175mcg discussed during last visit. * Telephone Encounter - Sampson Carolina - 03/19/2023 8:53 AM EDT Tc from pt requesting a call from a nurse in regards to her new script for levothyroxine (Synthroid) 150 MCG tablet. Pt states that she agreed with provider that medication will not be lower then 175. Pt states is requesting a call to clarify and verify. Please contact pt at [phone] documented in this encounter Plan of Treatment Upcoming Encounters Date Type Department Care Team (Late st Contact Info) Description 09/07/2024 1:45 PM EST Office Visit [facility] [address] [place] [address] Leidy Dunham NP [address] [place] [address] 09/22/2024 9:45 AM EST Office Visit [facility] [address] [place] [address] documented as of this encounter Visit Diagnoses Not on filedocumented in this encounter Additional Health Concerns Assessment Noted Time PHQ-9 Depression Total Score: 2 12/08/19 23 1:16 PM EDT documented as of this encounter Care Teams Storage Facility Housekeeper Relationship Specialty Start Date End Date Josette Stuart FNP [address] [place] [address] PCP - General Family Medicine 04/30/22 01/27/24 Josette Stuart FNP [address] [place] [address] PCP - General Family Medicine 01/28/24 03/30/24 Leidy Dunham NP [address] [place] [address] PCP - General Family Medicine 03/31/24 documented as of this encounter
--- OUTSIDE RECORDS SUMMARY | 2024-08-30 14:02 | XMS_ITS | Data Portability ---
Author Organization BRAYDEN Plunkett MD , [facility] Address [address] [place] [address] Care Team Providers Care Communication Manager Name Role Phone CESAR JUAREZ Primary Care Provider CESAR JUAREZ Referring Provider [phone] Assessment Encounter Date Assessment Date Assessment LastModified by Organization Details LastModified Time 05/19/2019 05/19/2019 IMAGING MRI of the right shoulder was reviewed. There is evidence of [id number] arthritic change of the AC joint. There is perhaps some mild glenohumeral arthritic change. There is evidence of intra-articular tendinopathy of the biceps tendon. There is very high-grade partial-thickness tear of the leading edge of the supraspinatus and in my opinion there may even be a small area of full-thickness tearing or at least a very few remnant fibers with some subscapularis tendinosis. IMPRESSION Kristal unfortunately has very high-grade partial-thickness, if not small full-thickness tear of the anterior supraspinatus. Given her duration of symptoms and lack of improvement with simple conservative measures including therapy, activity modification, we agreed to pursue shoulder arthroscopy with rotator cuff repair, distal clavicle resection, and possible biceps tenodesis. The nature of the procedure was discussed with Kristal and we will set her up for surgery in early May. [email or web address] Not available 05/26/2019 12:15:08 06/16/2019 06/16/2019 Kristal seems to be healing uneventfully. Today, her sutures were removed. She was instructed on simple passive range of motion exercises. We will avoid active range of motion until 6 weeks. We will plan to see her in another 4 weeks' time for reassessment of her progress. Today, her sutures were removed. [email or web address] Not available 06/17/2019 13:30:11 07/14/2019 07/14/2019 Kristal has excellent passive range of motion and is already feeling more comfortable than she did prior to her surgery. We will have her begin formal physical therapy at this time and she can discontinue her sling this week. We will see her back 3 months postoperatively for reassessment of her progress. She knows to lift only ounces and not pounds with her right arm. [email or web address] Not available 07/14/2019 16:18:22 Plan of Treatment Reminders Order Date Submit Date Provider Last Modified By Organization Details Last Modified Time Details Appointments None record ed. Lab None record ed. Referral None record ed. Procedures None record ed. Surgeries None record ed. Imaging None record ed. Medication Orders None record ed. Patient TargetsNo targets recorded. Patient InstructionsNo instructions recorded. Reason for Referral None Reported. Results Created Date Observation Date Name Description Value Unit Range Abnormal Flag Note LastModifiedBy Organization Detail LastModifiedTime 05/26/20 19 05/26/2019 XR, knee No observ ation record ed. [email or web address] [facility] Radiology [address], [address], 05/28/2019 10:45:58 Result Notes None recorded. Problems Name Problem SNOMED Code Status Onset Date Resolution Date Notes Provider Name and Address Organization Details Recorded Time Disorder of bursa of shoulder region 31991131 Active 2018 BRAYDEN Viveros MD 9 11:34:17 Shoulder joint pain 214815513 Active 2018 BRAYDEN Viveros MD 9 11:34:39 Localized, primary osteoarthritis 273873683 Active 2018 BRAYDEN Viveros MD 9 11:34:52 Localized, primary osteoarthritis of the shoulder region 321242339 Active 2018 BRAYDEN Viveros MD 9 10:56:37 Bicipital tenosynovitis 90971464 Active 2018 BRAYDEN Viveros MD 9 10:56:48 Partial thickness rotator cuff tear 001174263 Active 2018 BRAYDEN Viveros MD 9 10:57:03 Articular cartilage disorder of shoulder region 049831815 Active 2018 Darrell Plunkett MD [address], [place], [address], BRAYDEN Plunkett MD 9 18:03:07 Problem Notes None recorded. Procedures Surgical History Date Name Laterality Status Provider Name and Address Organization Details Recorded Time 3 Carpal tunnel surgery completed [facility] BRAYDEN Plunkett MD 03/10/2019 11:40:39 Imaging Results Imaging Date Name Status LastModified by Organiz ation Details LastModified Time 05/26/2019 XR, knee completed [email or web address] [address], [place], [address], 05/28/2019 10:45:58 Procedure Notes None recorded. Medical Equipment None Reported. Allergies No known drug allergies Medications Name Sig Start Date Stop Date Status Note LastModified by Organization Details LastModified Time fluconazole 150 mg tablet TK 1 T PO QD FOR 1 DAY. MAY REPEAT IF THERE IS NO FULL RESOLUTION OF SYMPTOMS IN 72 H active Not Available Not Available No t Available hydrocodone 5 mg-acetamino phen 325 mg tablet TK 1 T PO Q 6 H PRF SEVERE PAIN active Not Available Not Available Not Available clotrimazole 1 % vaginal cream INSERT 1 APPLICATOR VAGINALLY EVERY DAY FOR 3 DAYS active Not Available Not Available N ot Available metronidazol e 500 mg tablet TK 1 T PO BID FOR 7 DAYS active Not Available Not Available No t Available amlodipine 5 mg tablet TK 1 T PO QD active Not Available Not Available No t Available acyclovir 400 mg tablet TAKE 1 TABLET BY MOUTH THREE TIMES A DAY NEEDED FOR BREAKOUTS active Not Available Not Available No t Available valacyclovir 500 mg tablet TAKE 1 TABLET BY MOUTH TWICE A DAY active Not Available Not Available No t Available ciprofloxaci n 500 mg tablet TAKE 1 TABLET BY MOUTH EVERY 12 HOURS active Not Available Not Available No t Available levothyroxin e 150 mcg tablet TK 1 T PO QD IN THE MORNING ON AN EMPTY STOMACH active Not Available Not Available No t Available omeprazole 20 mg capsule,rose yed release TK 1 C PO QD active Not Available Not Available No t Available levothyroxin e 200 mcg tablet TAKE 1 TABLET BY MOUTH EVERY DAY active Not Available Not Available No t Available hydrochlorot hiazide 25 mg tablet TK 1 T PO QD active Not Available Not Available No t Available lisinopril 40 mg tablet TK 1 T PO QD active Not Available Not Available No t Available doxycycline hyclate 100 mg tablet TK 1 T PO Q 12 H active Not Available Not Available No t Available Truvada 200 mg-300 mg tablet TK 1 T PO QD active Not Available Not Available No t Available Tirosint 150 mcg capsule TK 1 C PO ON AN EMPTY STOMACH QAM active Not Available Not Available Not Available Vitals Date Recorded Body height Body mass index (BMI) Body weight Provider Name and Address Organization Details Last Updated DateTime 07/14/2019 167.64 cm 35.3 kg/m2 73530.73 g lester Plunkett MD 07/14/2019 11:02:19 Social History None recorded. Functional Status None recorded. Mental Status None recorded. Family History Relationship Description Onset Age of this Age Resolved Age Notes LastModified by Organization Details LastModified Time Father No current problems or disability [email or web address] Not available 03/10 11:39:51 Mother No current problems or disability [email or web address] Not available 03/10 11:39:51 Medical History Condition Response Anxiety Disorder Y Anemia Y Arthritis Y Thyroid Problems Y Hypertension Y Depression Y Gynecological HistoryNo gynecological history recorded. Obstetrics History GPAL:G 0 P 0 0 0 0 Past Encounters Encounter ID Performer Location Encounter Start Date Encounter Closed Date Diagnosis/Indication Diagnosis SNOMED-CT Code Diagnosis ICD10 Code Diagnosis Note [id number] Darrell PLUNKETT M.D. 1 [facility] [place],[address] [address] 03/10/2019 09:40:59 03/10/2019 11:21:45 Localized, primary osteoarthritis 951921884 M19.011 Shoulder joint pain 2679 [address]220 M25.511 Disorder o f bursa of shoulder region 67844254 M25.811 [id number] MD DARRELL Ramírez M.D. 1 [employer],[address] [address] 05/19/2019 08:52:47 05/19/2019 09:49:55 Localized, primary osteoarthritis 827883625 M19.011 Shoulder joint pain 2679 79196 M25.511 Bicipital tenosynovitis 44126821 M75.21 Partial th ickness rotator cuff tear 376450615 M75.101 [id number] MD DARRELL Ramírez M.D. 1 [facility],[address] [address] 05/26/2019 09:01:43 05/26/2019 10:55:03 Localized, primary osteoarthritis of the shoulder region 602723852 M19.011 Shoulder joint pain 2679 [address] M25.511 Bicipital tenosynovitis 83659658 M75.21 Partial th ickness rotator cuff tear 785829490 M75.101 [id number] MD Ria Ramírez [address] [address] 06/09/2019 18:02:24 06/09/2019 18:06:28 Localized, primary osteoarthritis of the shoulder region 942502638 M19.011 Partial th ickness rotator cuff tear 359275518 M75.101 Bicipital tenosynovitis 33882851 M75.21 Disorder o f bursa of shoulder region 56222553 M25.811 Articular cartilage disorder of shoulder region 754251648 M24.111 [id number] Darrell PLUNKETT M.D. 1 [employer],[address] [place] [address] 06/16/2019 10:15:14 06/16/2019 11:32:29 Articular cartilage disorder of shoulder region 532577435 M24.111 Bicipital tenosynovitis 90166192 M75.21 Disorder o f bursa of shoulder region 02131387 M25.811 Localized, primary osteoarthritis 165152420 M19.011 Localized, primary osteoarthritis of the shoulder region 014738059 M19.011 Partial th ickness rotator cuff tear 710478450 M75.101 Shoulder joint pain 2679 34761 M25.511 [id number] Darrell PLUNKETT M.D. [address] [facility] [address] [address] 07/14/2019 09:46:36 07/14/2019 10:59:23 Articular cartilage disorder of shoulder region 679434651 M24.111 Disorder o f bursa of shoulder region 41985100 M25.811 Shoulder joint pain 2679 [address]200 M25.511 Bicipital tenosynovitis 95099192 M75.21 Partial th ickness rotator cuff tear 283460749 M75.101 Health Concerns Section Related Observation LastModified by Organization Detai ls LastModified Time None Recorded Concern Status LastModified by Organization Details LastModified Time None Recorded Advance Directives Directive None Recorded Payers Encounter Date Sequence Insurance Name Policy Number Policy Donis Covered Member ID Donis Member ID Guarantor Name 05/19/2019 1 [place] [employer] [employer] [place] Kristal A Osl [id number] Kristal A Osl 05/26/2019 1 [place] [employer] [facility] [employer] [place] Kristal A Osl [id number] Kristal A Osl 06/04/2019 1 [place] [employer] [facility] [employer] [place] Kristal A Osl [id number] Kristal A Osl 06/16/2019 1 [place] [employer] [facility] [place] [place] Kristal A Osl [id number] Kristal A Osl 07/14/2019 1 [place] [employer] [facility] [place] [place] Kristal A Osl [id number] Kristal A Osl Notes Date Note Type Note Provider Name and Address Organization Details Recorded Time 05/19/2019 text/html Kristal returns f or reassessment of her right shoulder and MRI followup. Darrell Plunkett MD [address], [place], [address], BRAYDEN Plunkett MD 06/08/2019 15:17:47 06/16/2019 text/html Kristal returns 1 2 days since undergoing right shoulder arthroscopic rotator cuff repair with labral debridement, subacromial decompression, distal clavicle resection, and biceps tenodesis. She reports steady improvement in her comfort. She has been compliant with the use of her sling. She is really not taking any pain medication, only Tylenol or NSAIDs. BRAYDEN Simms MD 07/28/2019 15:15:31 07/14/2019 text/html Kristal returns today nearly 6 weeks since undergoing right shoulder arthroscopic rotator cuff repair with subacromial decompression, distal clavicle resection and biceps tenodesis. She reports steady improvement in her comfort and function. She has been compliant with the use of a sling, but does not come in with it today. BRAYDEN Simms MD 08/03/2019 12:27:32 OBGyn Episode No OBEpisode recorded.
--- OUTSIDE RECORDS SUMMARY | 2024-08-30 14:02 | XMS_ITS | Encounter Summary ---
Author Organization [employer] Address [address] [facility] [address] [address] [place] [address] Care Team Providers Care Branch Maker Name Role Phone Gayle Dunhamily SHAYE Primary Care Provider [phone] Encounter Details Date Type Department Care Team (Latest Contact Info) Description 08/25/2024 9:45 AM EST Office Visit [facility]INE [address] [place] [address] Aria Anderson FNP [address] [place], [place] [phone] Osteoarthritis involving multiple joints on both sides of body (Primary Dx); detention (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; Spondylosis of thoracolumbar spine Social History Tobacco Use Types Packs/Day Years [...] AM EDT documented as of this encounter Progress Notes * Aria Anderson, EVENTS MANAGER - 08/25/2024 9:45 AM EST Subjective: Kristal Storey is a 54 y.o. female w/ PMH LONA, HTN, OA of hips, knees, and shoulders, GERD, hypothyroidism, history of substance use disorder, bipolar 2 disorder, who presents to the office for - [facility] visits. Initial Group visit: 08/20/23 Group visit: 8 Last PCP visit: 01/28/24, SHAYE Dunham Group Confidentiality last signed: 08/25/24 Group Topic: Functional Goal Setting Chronic Pain History: Associated Diagnosis: osteoarthritis, thoracolumbar spondylosis, L hip replacement at [facility] Relevant Imaging: Jul 2024: XR lumbar spine demonstrated degenerative spondylosis Jul 2024: XR thoracic spine demonstrated mild convex scoliosis and degenerative changes. Apr 2024: CT Abd/pelvis: There is beam hardening artifact secondary to a total left hip arthroplasty prosthesis. Multilevel thoracolumbar spondylosis. Grade 1 retrolisthesis L5-S1, T12-L1 and L1-2 levels. Current pharm tx: Tramadol 50mg BID, topical treatment Medication: States taking medication as prescribed. Past ineffective med trials: Gabapentin (total daily dose 1100 mg) Non-pharm tx: none Related Specialists: orthopedics (hip replacement) Other substance use: Tobacco: former Marijuana: occasionally Alcohol: not currently Illicit substances: none Review of Systems Constitutional: Negative for chills and fever. Respiratory: Negative for wheezing. Cardiovascular: Negative for chest pain and palpitations. Gastrointestinal: Negative for diarrhea and vomiting. Musculoskeletal: Positive for arthralgias. Physical Exam Constitutional: Appearance: Normal appearance. Pulmonary: Effort: Pulmonary effort is normal. Neurological: Mental Status: She is alert and oriented to person, place, and time. Psychiatric: Mood and Affect: Mood normal. Behavior: Behavior normal. Problem List Items Addressed This Visit Musculoskeletal Osteoarthritis involving multiple joints on both sides of body - Primary Spondylosis of thoracolumbar spine Overview Apr 2024: CT abd/pelvis demonstrated multilevel thoracolumbar spondylosis and Grade 1 retrolisthesis L5-S1, T12-L1 and L1-2 levels. 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 Last fill date: 08/11/24 (Tramadol 50mg bid PRN) count not performed, as patient stated she forgot her pills but has a full bottle at home, states she will call tomorrow with a pill count, anticipated (0) to be remaining. ..UTOX completed. Positive for (THC), Negative for AMP, BAR, BUP, BZO, DAYSI, FTY, MDMA, MET, MOP, MTD, OXY, PCP, TCA. UTOX as expected. * Krista Guadalupe RN - 08/25/2024 9:45 AM EST Pt came in with her Tramadol medication. Patient has 23 pills remaining, anticipated she would have0. Medication is not over used by patient. documented in this encounter Miscellaneous Notes * Assessment & Plan Note - JULIO CESAR Forde - 08/27/2024 4:09 PM ESTAssociated Problem(s): Spondylosis of thoracolumbar spine Pill count and urine tox as expected Continue participation in chronic pain group Post operative pain is managed and she is walking with her L hip Cont pharm and non-pharm modalities for pain control documented in this encounter Plan of Treatment Upcoming Encounters Date Type Department Care Team (Late st Contact Info) Description 09/07/2024 1:45 PM EST Office Visit [facility] MEDICINE [address] [place] [phone] Leidy Dunham NP [address] [place] [phone] 09/22/2024 9:45 AM EST Office Visit [address] [phone] documented as of this encounter Procedures Procedure Name Priority Date/Time Associated Diagnosis Comments POCT MAU-14 URINE DRUG SCREEN Routine 08/25/2024 1:56 PM EST detention (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 documented in this encounter Results * POCT MAU-14 Urine Drug Screen (08/25/2024 1:56 PM EST) THC Positive Urine Urine specimen obtained by clean catch procedure / Unknown 08/25/2024 1:56 PM EST Leidy Dunham NP POINT OF CARE TEST ENTER/EDIT OR DERABLES Final Result documented in this encounter Visit Diagnoses Diagnosis Osteoarthritis involving multiple joints on both sides of body- Primary captain/airline pilot (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 Spondylosis of thoracolumbar spine documented in this encounter Additional Health Concerns Assessment Noted Time PHQ-9 Depression Total Score: 2 12/08/19 23 1:16 PM EDT documented as of this encounter Care Teams Branch Maker Relationship Specialty Start Date End Date Leidy Dunham NP [address] [place] [address] PCP - General Family Medicine 03/31/24 documented as of this encounter
--- OUTSIDE RECORDS SUMMARY | 2024-08-30 14:02 | XMS_ITS | Encounter Summary ---
Author Organization [employer] Address [address] [facility] 7t [place] [address] Care Team Providers Care Retirement Assistant Name Role Phone Josette Stuart Primary Care Provider [phone] Josette Stuart Primary Care Provider [phone] Leidy Dunham NP Primary Care Provider [phone] Reason for Visit * Reason Onset Date Comments dental clearance for surgery 06/17/2023 Encounter Details Date Type Department Care Team ([facility] st Contact Info) Description 06/17/2023 Telephone [facility] ADULT DENTAL [address] [place], [place] [phone] Tavon Chong DDS [address] [place], [place] [phone] dental clearance for surgery Social History Tobacco Use Types Packs/Day Years [...] encounter Miscellaneous Notes * Telephone Encounter - Jessi Aburto - 06/17/2023 10:24 AM EST Yojana from [facility] called requesting the form for surgery clearance be sent back to their office. Upon checking chart, there is nothing scanned in. She stated it was sent in on 05/28 onlast date patient was seen. Patient is coming in today. Advised office to re send the clearance form to [phone] so that provider can fill out and send back to fax number listed on clearance form. Patient is being seen today with ERLINDA garcia DR documented in this encounter Plan of Treatment Upcoming Encounters Date Type Department Care Team (Late st Contact Info) Description 09/07/2024 1:45 PM EST Office Visit [facility] MEDICINE [address] [place] [address] Leidy Dunham NP [address] [place] [address] 09/22/2024 9:45 AM EST Office Visit [facility] MED[facility] [address] [place] [address] documented as of this encounter Visit Diagnoses Not on filedocumented in this encounter Additional Health Concerns Assessment Noted Time PHQ-9 Depression Total Score: 2 12/08/19 23 1:16 PM EDT documented as of this encounter Care Teams Retirement Assistant Relationship Specialty Start Date End Date Josette Stuart FNP [address] [place] [address] PCP - General Family Medicine 04/30/22 01/27/24 Josette Stuart FNP [address] [place] [address] PCP - General Family Medicine 01/28/24 03/30/24 Leidy Dunham NP [address] [place] [address] PCP - General Family Medicine 03/31/24 documented as of this encounter
--- OUTSIDE RECORDS SUMMARY | 2024-08-30 14:02 | XMS_ITS | Encounter Summary ---
Author Organization [employer] Address [address] [facility] 7t [place] [address] Care Team Providers Care Weigh Tank Operator Name Role Phone Josette Stuart Primary Care Provider [phone] Josette Stuart Primary Care Provider [phone] Leidy Dunham NP Primary Care Provider [phone] Encounter Details Date Type Department Care Team (Late st Contact Info) Description 02/05/2023 Abstract [facility] MEDICINE [address] [place], [place] [phone] Josette Stuart FNP [address] [place], [place] [phone] Social History Tobacco Use Types Packs/Day Years [...] Orientation Straight 02/02/2023 7: 55 AM EDT COVID-19 Exposure Response Date Recorded In the last 10 days, have yo u been in contact with someone who was confirmed or suspected to have Coronavirus/COVID-19? Unable to assess 02/01/2023 4:18 PM EDT documented as of this encounter Plan of Treatment Upcoming Encounters Date Type Department Care Team (Late st Contact Info) Description 09/07/2024 1:45 PM EST Office Visit [facility] [place] [address] Leidy Dunham, SHAEY [address] [place] [address] 09/22/2024 9:45 AM EST Office Visit [facility] [place] [address] documented as of this encounter Visit Diagnoses Not on filedocumented in this encounter Additional Health Concerns Assessment Noted Time PHQ-9 Depression Total Score: 2 12/08/19 23 1:16 PM EDT documented as of this encounter Care Teams Weigh Tank Operator Relationship Specialty Start Date End Date Josette Stuart [place] [address] PCP - General Family Medicine 04/30/22 01/27/24 [place] [address] PCP - General Family Medicine 01/28/24 03/30/24 Leidy Dunham [facility] [place] [address] PCP - General Family Medicine 03/31/24 documented as of this encounter
--- OUTSIDE RECORDS SUMMARY | 2024-08-30 14:02 | XMS_ITS | Encounter Summary ---
Author Organization [employer] Address [address] [place] [address] 7t [place] [address] Care Team Providers Care Disposal Man Name Role Phone Josette Stuart Primary Care Provider [phone] Josette Stuart Primary Care Provider [phone] Leidy Dunham NP Primary Care Provider Reason for Visit * Reason Onset Date Comments Hospital Follow-up 11/25/2023 Encounter Details Date Type Department Care Team ([facility] st Contact Info) Description 11/25/2023 Telephone [facility] MEDICINE [address] [place], [place] [phone] Josette Stuart FNP [address] [place], [place] [phone] Hospital Follow-up Social History Tobacco Use Types Packs/Day Years [...] encounter Miscellaneous Notes * Telephone Encounter - Marisabel Maurer - 11/25/2023 10:45 AM EDT Tc from pt requesting a HDF appt. Hospital: [facility] Date of admission: 11/19/23 Discharge date: 11/22/23 Diagnosed: pancreatitis Please contact at [phone] documented in this encounter Plan of Treatment Upcoming Encounters Date Type Department Care Team (Late st Contact Info) Description 09/07/2024 1:45 PM EST Office Visit [facility] MEDICINE [address] [place] [address] Leidy Dunham NP [address] [place] [address] 09/22/2024 9:45 AM EST Office Visit [facility] MEDICINE [address] [place] [address] documented as of this encounter Visit Diagnoses Not on filedocumented in this encounter Additional Health Concerns Assessment Noted Time PHQ-9 Depression Total Score: 2 12/08/19 23 1:16 PM EDT documented as of this encounter Care Teams Disposal Man Relationship Specialty Start Date End Date Josette Stuart FNP [address] [place] [address] PCP - General Family Medicine 04/30/22 01/27/24 Josette Stuart FNP [address] [place] [address] PCP - General Family Medicine 01/28/24 03/30/24 Leidy Dunham NP [address] [place] [address] PCP - General Family Medicine 03/31/24 documented as of this encounter
--- OUTSIDE RECORDS SUMMARY | 2024-08-30 14:02 | XMS_ITS | Encounter Summary ---
Author Organization [employer] Address [address] [facility] 7t [place] [address] Care Team Providers Care Professor In Family Studies Name Role Phone Josette Stuart Primary Care Provider [phone] Josette Stuart Primary Care Provider [phone] Leidy Dunham NP Primary Care Provider [phone] Encounter Details Date Type Department Care Team (Late st Contact Info) Description 12/26/2023 Orders Only [facility] MEDICINE [address] [place], [place] [phone] Maryann Stokes MD 230 [place], [place] [phone] Social History Tobacco Use Types Packs/Day Years [...] Description 09/07/2024 1:45 PM EST Office Visit [address] [address] Leidy Dunham NP [address] [place] [address] 09/22/2024 9:45 AM EST Office Visit [address] [address] documented as of this encounter Visit Diagnoses Not on filedocumented in this encounter Additional Health Concerns Assessment Noted Time PHQ-9 Depression Total Score: 2 12/08/19 23 1:16 PM EDT documented as of this encounter Care Teams Professor In Family Studies Relationship Specialty Start Date End Date [place] [address] PCP - General Family Medicine 04/30/22 01/27/24 [place] [address] PCP - General Family Medicine 01/28/24 03/30/24 Leidy Dunham NP [address] [place] [address] PCP - General Family Medicine 03/31/24 documented as of this encounter
--- OUTSIDE RECORDS SUMMARY | 2024-08-30 14:02 | XMS_ITS | Encounter Summary ---
Author Organization [employer] Address [address] [facility] 7t [place] [address] Care Team Providers Care Recruiting Administrator Name Role Phone Leidy Dunham NP Primary Care Provider [phone] Reason for Visit * Reason Onset Date Comments Med Refill 08/10/2024 Encounter Details Date Type Department Care Team (Late st Contact Info) Description 08/10/2024 Refill [facility] MEDICINE [address] [place], [place] [phone] Leidy Dunham NP 230 [place], [place] [phone] Low back pain, non-specific (Primary Dx) Social History Tobacco Use Types [...] encounter Miscellaneous Notes * Telephone Encounter - Dea Fernandez - 08/10/2024 11:16 AM EST TC from pt requesting medication refill. Medications needing refill : traMADol (Ultram) 50 MG tablet To be sent to: [address], [address] documented in this encounter Plan of Treatment Upcoming Encounters Date Type Department Care Team (Late st Contact Info) Description 09/07/2024 1:45 PM EST Office Visit [address] [address] Leidy Dunham NP [address] [place] [address] 09/22/2024 9:45 AM EST Office Visit [address] [address] documented as of this encounter Visit Diagnoses Diagnosis Low back pain, non-specific- Primary documented in this encounter Additional Health Concerns Assessment Noted Time PHQ-9 Depression Total Score: 2 12/08/19 23 1:16 PM EDT documented as of this encounter Care Teams Recruiting Administrator Relationship Specialty Start Date End Date Leidy Dunham NP [address] [place] [address] PCP - General Family Medicine 03/31/24 documented as of this encounter
--- OUTSIDE RECORDS SUMMARY | 2024-08-30 14:02 | XMS_ITS | Encounter Summary ---
Author Organization [employer] Address [address] [place] [address] 7t [place] [address] Care Team Providers Care Stencil Machine Operator Name Role Phone Josette Stuart Primary Care Provider [phone] Josette Stuart Primary Care Provider [phone] Leidy Dunham NP Primary Care Provider [phone] Encounter Details Date Type Department Care Team (Late st Contact Info) Description 01/10/2023 Abstract [facility] MEDICINE [address] [place], [place] [phone] Josette Stuart FNP [address] [place], [place] [phone] Social History Tobacco Use Types Packs/Day Years [...] was confirmed or suspected to have Coronavirus/COVID-19? No / Unsure 12/17/2022 1:24 PM EDT documented as of this encounter Plan of Treatment Upcoming Encounters Date Type Department Care Team (Late st Contact Info) Description 09/07/2024 1:45 PM EST Office Visit [facility] [place] [id number] Leidy Dunham, SHAYE [address] [place] [address] 09/22/2024 9:45 AM EST Office Visit [facility] [place] [id number] documented as of this encounter Procedures Procedure Name Priority Date/Time Associated Diagnosis Comments COLONOSCOPY Routine 11/23/2021 8:53 AM EDT documented in this encounter Results * Colonoscopy (11/23/2021 8:53 AM EDT) Colonoscopy Normal Normal Narrative Mirtha Everett - 11/23/2021 8:53 AM EDT Recommended 10 [place] ( [facility] [place] Historical Provider HEALTH MAINTENANCE Edited Result - Final documented in this encounter Visit Diagnoses Not on filedocumented in this encounter Additional Health Concerns Assessment Noted Time PHQ-9 Depression Total Score: 2 12/08/19 23 1:16 PM EDT documented as of this encounter Care Teams Stencil Machine Operator Relationship Specialty Start Date End Date [place] [address] PCP - General Family Medicine 04/30/22 01/27/24 [place] [address] PCP - General Family Medicine 01/28/24 03/30/24 [place] [address] PCP - General Family Medicine 03/31/24 documented as of this encounter
--- OUTSIDE RECORDS SUMMARY | 2024-08-30 14:02 | XMS_ITS | Encounter Summary ---
Author Organization [employer] Address [address] [place] [address] 7t [place] [address] Care Team Providers Care Skidway Worker Name Role Phone Josette Stuart Primary Care Provider [phone] Josette Stuart Primary Care Provider [phone] Leidy Dunham NP Primary Care Provider [phone] Encounter Details Date Type Department Care Team ([facility] [address] Contact Info) Description 01/17/2023 Abstract [facility] MEDICINE [address] [place] [address] Josette Stuart FNP [address] [place], [place] [phone] Social History Tobacco Use Types Packs/Day Years [...] Upcoming Encounters Date Type Department Care Team ([facility] [address] Contact Info) Description 09/07/2024 1:45 PM EST Office Visit [facility] [address] [place] [address] [place] [address] Leidy Dunham, SHAYE [address] [facility] [place] [address] 09/22/2024 9:45 AM EST Office Visit [facility] [place] [address] documented as of this encounter Visit Diagnoses Not on filedocumented in this encounter Additional Health Concerns Assessment Noted Time PHQ-9 Depression Total Score: 2 12/08/19 23 1:16 PM EDT documented as of this encounter Care Teams Skidway Worker Relationship Specialty Start Date End Date Josette Stuart FNP [facility] [place] [address] PCP - General Family Medicine 04/30/22 01/27/24 Josette Stuart FNP [facility] [place] [address] PCP - General Family Medicine 01/28/24 03/30/24 Leidy Dunham NP [facility] [place] [address] PCP - General Family Medicine 03/31/24 documented as of this encounter
--- OUTSIDE RECORDS SUMMARY | 2024-08-30 14:03 | XMS_ITS | Encounter Summary ---
Author Organization [employer] Address [address] [place] [address] 7t [place] [address] Care Team Providers Care Construction Millwright Name Role Phone Josette Stuart Primary Care Provider [phone] Josette Stuart Primary Care Provider [phone] Leidy Dunham NP Primary Care Provider [phone] Reason for Visit * Reason Onset Date Comments PT1 03/05/2023 Encounter Details Date Type Department Care Team ([facility] st Contact Info) Description 03/05/2023 Telephone [facility] MEDICINE [address] [place], [place] [phone] Josette Stuart FNP [address] [place], [place] [phone] PT1 Social History Tobacco Use Types Packs/Day Years [...] encounter Miscellaneous Notes * Telephone Encounter - Purnima Desir - 03/05/2023 2:22 PM EDT PT1 Address Verified Date: 03/22/23 Time: 8:15 am Visits: Address: [address], [place] [address] Facility: [facility] Wheel Chair: n/a Special Machine Stitcher Needed: no documented in this encounter Plan of Treatment Upcoming Encounters Date Type Department Care Team (Late st Contact Info) Description 09/07/2024 1:45 PM EST Office Visit [address] [address] Leidy Dunham NP [address] [place] [address] 09/22/2024 9:45 AM EST Office Visit [address] [address] documented as of this encounter Visit Diagnoses Not on filedocumented in this encounter Additional Health Concerns Assessment Noted Time PHQ-9 Depression Total Score: 2 12/08/19 23 1:16 PM EDT documented as of this encounter Care Teams Construction Millwright Relationship Specialty Start Date End Date Josette Stuart FNP [address] [place] [address] PCP - General Family Medicine 04/30/22 01/27/24 Josette Stuart FNP [address] [place] [address] PCP - General Family Medicine 01/28/24 03/30/24 Leidy Dunham NP [address] [place] [address] PCP - General Family Medicine 03/31/24 documented as of this encounter
--- OUTSIDE RECORDS SUMMARY | 2024-08-30 14:03 | XMS_ITS | Clinical Summary ---
Author Organization [employer] Address [address] [place] [address] Care Team Providers Care Top Tile Decorator Name Role Phone Roly Leidy SHAYE Primary Care Provider [phone] Allergies Active Allergy Reactions Criticality Noted Date Comments Penicillin G 08/01/2023 Penicillins Rash,Dizziness,Hives,Itching,Swelling Low 01/06/2020 Medications ferrous sulfate (FeroSul) 325 (65 Fe) MG tabletIndicatio ns:Anemia, unspecified type TAKE 1 TABLET BY MOUTH DAILY 90 tablet 3 08/29/19 23 Active docusate sodium (Colace) 100 MG capsule Take 1 capsule by mouth every 12 (twelve) hours. 09/13/19 21 Active hydrOXYzine pamoate (Vistaril) 25 MG capsuleIndicati ons:Anxiety Take 1 capsule by mouth at bedtime as needed 30 capsule 5 10/16/19 23 Active valACYclovir (Valtrex) 500 MG tabletIndicatio ns:Genital herpes simplex, unspecified site take 1 tablet by oral route 2 times a day for 3 days when you have an outbreak 6 tablet 2 02/07/20 23 Active levothyroxine (Synthroid) 175 MCG tablet Take 1 tablet (175 mcg) by mouth before breakfast. 30 tablet 11 03/19/20 23 Active lisinopril-hydr oCHLOROthiazide 20-12.5 MG tablet Take 1 tablet by mouth in the morning. 30 tablet 11 05/24/20 23 Active amLODIPine (Norvasc) 10 MG tabletIndicatio ns:Hypertension , unspecified type TAKE 1 TABLET BY MOUTH EVERY DAY 90 tablet 1 07/02/20 23 Active simvastatin (Zocor) 5 MG tablet TAKE 1 TABLET BY MOUTH AT BEDTIME 90 tablet 1 07/02/20 23 Active cetirizine (ZyrTEC) 10 MG tablet Take 1 tablet (10 mg) by mouth in the morning. 90 tablet 3 10/16/19 24 025 Active Carafate 1 GM/10ML suspensionIndic ations:Gastroes ophageal reflux disease with esophagitis without hemorrhage SHAKE LIQUID AND TAKE 10 ML BY MOUTH TWICE DAILY 600 mL 5 11/12/19 24 Active gabapentin (Neurontin) 300 MG capsuleIndicati ons:Low back pain, non-specific Take 1 capsule (300 mg) by mouth See administration instructions. Take 300mg by mouth, every mornining and every midday. 60 capsule 01/09/20 24 Active gabapentin (Neurontin) 400 MG capsuleIndicati ons:Low back pain, non-specific Take 1 capsule (400 mg) by mouth at bedtime. 30 capsule 01/09/20 24 Active Diclofenac Sodium 1 % gel Apply 2 g topically if needed in the morning and at bedtime (pain). 150 g 6 01/09/20 24 Active DULoxetine (Cymbalta) [address] capsule 02/06/20 24 Active prazosin (Minipress) 5 MG capsule 02/06/20 24 Active omeprazole (PriLOSEC) [address] capsuleIndicati ons:Gastroesoph ageal reflux disease, unspecified whether esophagitis present TAKE 1 CAPSULE BY MOUTH TWICE A DAY AFTER MEALS 180 capsule 07/23/20 24 Active traMADol (Ultram) 50 MG tabletIndicatio ns:Low back pain, non-specific Take 1 tablet (50 mg) by mouth every 12 (twelve) hours if needed for severe pain for up to 14 days. 28 tablet 08/10/19 25 025 Active Problems Problem Noted Date Diagnosed Date Pre-op evaluation 06/12/2024 Assessment & Plan (06/12/2024 3:27 PM EST): Active cardiac conditions that are contraindications to elective surgery: Surgery-Specific Cardiac Risk: low Cardiac risk by patient profile (RCRI): Patient has 0 risk factors corresponding to 0.4%risk of a major cardiac event during surgery. Functional capacity = 10 METS. The patient reports being able to walk up 1 one flight of stairs and 2 blocks without stopping. Medication Recs: -Hold aspirin and NSAIDs 5 days before surgery -Stop Lisinopril, HCTZ day of surgery. May restart day after the surgery unless directed differently by surgeon This patient is at low risk for an low risk procedure. The patient is at acceptable risk for the proposed procedure. Reviewed with patient that no surgery is completely free of risk and this evaluation is to assist surgeon in accurately reviewing informed consent. Oliguria 06/12/2024 Assessment & Plan (06/12/2024 3:28 PM EST): U/A- neg, sent for culture and sensitivity and will treat if appropriate Counseled pt to increase fluids. Urinate after sex. Avoid bladder irritants. 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 04/29 Overview (07/09/2024): Associated Dx: OA bilat hips, s/p L hip replacement Rx: Tramadol 50mg BID PRN Last RABIES INSPECTOR agreement: 02/14/24 Tier II (RABIES INSPECTOR visit every 3 months) History of abnormal cervical Pap smear Overview (02/06/2024): LEEAdrian completed 2023 Assessment & Plan (02/06/2024 9:56 AM EDT): In care with STAFF INTERNIST OFFICE BASED ONLY Hiatal hernia 02/06/2024 Assessment & Plan (02/06/2024 9:52 AM EDT): Repair, reports small hiatal hernia reoccurrence, followed by GI, daily PPI controls symptoms Low acid diet reviewed Encounter for wellness examination in adult 08/2023 Overview (02/06/2024): Breast CA: Mammogram completed 10/21/23 birads 1 Cervical CA: In care with alvarado AWAD, cone leep last week Colon CA: EGD/ colonoscopy,completed on 11/23/21 , colonoscopy normal Lung CA: former smoker. Lipids completed 2023, anticipatory guidance reviewed Obesity, Class I, BMI 30-34.9 08/20/2023 LONA (obstructive sleep apnea) 08/20/2023 Overview (01/28/2024): Has lost weight, does not have mask Assessment & Plan (02/06/2024 9:51 AM EDT): Stable, improving with wt loss Bipolar 2 disorder 08/20/2023 08/20/2023 Assessment & Plan (01/28/2024 3:34 PM EDT): In care with [facility] has psychiatrist Increased urinary frequency 08/01/2023 Assessment & Plan (08/01/2023 8:22 PM EST): Urinedipstick today glu 100 ,ketone small,protein 30 , nitrates nege, LE trace U cx 07/30/2023 Mixed bacterial lucian characteristic of urogenital contamination. No clear signs and symptoms for infection but will repeat UA today -sent UA w reflex cx to hospital -will call pt w result ,hold on ATB for now -pt denies any ongoing abd pain ,does had cholelithiasis but denies pain in RUQ before so seems was not associated ,also has Colonic diverticulosis without diverticulitis. Small midline umbilical hernia containing mesenteric fat. There is a 1 cm right adrenal lesion measuring 25 Hounsfield units.---advised pt to f up CT findings w her PCP at her upcoming apt next month -alarm signs and symptoms discussed Elevation of cardiac enzymes 08/01/2023 Assessment & Plan (08/01/2023 8:23 PM EST): Pt denies any CV symptoms but does has risk factors for CAD. Possible elevated CE were from demand ischemia w pain experienced ??? 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 Onychomycosis of toenail 02/05/2023 Temporomandibular joint crepitus 02/05/2023 Hypothyroidism 09/26/2022 Assessment & Plan (02/06/2024 9:55 AM EDT): Pt reports labile TSH hx, sig weight loss, overcorrected 11/19 repeat labs ordered today GERD (gastroesophageal reflux disease) 3 Herpes 09/26/2022 Hypertension 09/26/2022 Assessment & Plan (02/06/2024 9:57 AM EDT): Slightly above goal today, monitor, rtc in 4-6 weeks Continue amlodipine 10 mg, and lisinopril/hydrochlorothiazide 20/12.5 Osteoarthritis involving mul tiple joints on both sides of body 09/26/2022 Assessment & Plan (07/09/2024 5:32 PM EST): -Good engagement and participation with Group Medical Visit model -Encouraged multifactorial approach to pain control including pharm and non- pharm modalities -UTOX and Pill count as expected Assessment & Plan (05/21/2024 6:23 AM EDT): Patient participated in group visit to greatest extent possible Utox and pill count as expected Letter given documenting these results, per pt request Encouraged non-pharmacological modalities of treatment of pain Assessment & Plan (04/21/2024 2:41 PM EDT): Patient participated in group visit to greatest extent possible Utox and pill count as expected Encouraged non-pharmacological modalities of treatment of pain Assessment & Plan (02/18/2024 8:36 PM EDT): Patient participated in group visit to greatest extent possible Utox and pill count as expected Assessment & Plan (02/06/2024 9:55 AM EDT): Pain adequately controlled with gabapentin 1200 daily and tramadol. Continue CS contract Assessment & Plan (12/27/2023 6:29 AM EDT): Patient participated in chronic pain group, reports that she has been hospitalized with pancreatitis and is recovering from this. Utox and pill counts as expected Followup in one month if able, otherwise 2-3 months. Spondylosis of thoracolumbar spine 09/26/2022 Overview (08/27/2024): Apr 2024: CT abd/pelvis demonstrated multilevel thoracolumbar spondylosis and Grade 1 retrolisthesis L5-S1, T12-L1 and L1-2 levels. Jul 2024: XR lumbar spine c/w degenerative spondylosis Assessment & Plan (08/27/2024 4:09 PM EST): Pill count and urine tox as expected Continue participation in chronic pain group Post operative pain is managed and she is walking with her L hip Cont pharm and non-pharm modalities for pain control Assessment & Plan (09/24/2023 2:06 PM EST): Pill count and urine tox as expected Continue participation in chronic pain group Post operative pain is managed and she is walking with her L hip Assessment & Plan (08/20/2023 11:59 AM EST): Patient participated in introduction to chronic pain group and stating of goals Post operative pain is managed and she is walking with her L hip Osteoarthritis of both knees 06/28/2020 Articular cartilage disorder of shoulder region 06/09/2019 08/20/2023 Partial thickness rotator cuff tear 05/26/2019 08/20/2023 Bicipital tenosynovitis 05/26/2019 08/20/19 24 Shoulder joint pain 03/10/2019 Primary localized osteoarthrosis of shoulder reg ion 03/10/2019 08/20/2023 Encounters Date Type Department Care Team Description 08/27/2024 Telephone [facility] [address] [place] [phone] Masha Mcgrath MA Chart Prep 08/25/2024 9:45 AM EST Office Visit [facility] [address] [place] [phone] Phalen, Aria, COORDINATOR OF HEALTH SERVICES Osteoarthritis involving multiple joints on both sides of body (Primary Dx); 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; Spondylosis of thoracolumbar spine 08/25/2024 Travel 08/13/2024 Orders Only [facility] External Provider, [facility] 08/10/2024 Refill [facility] [address] [place] [phone] Leidy Dunham NP Low back pain, non-specific (Primary Dx) 08/04/[address] [address] Lorraine Garcia RN 07/23/2024 9:40 AM EST Office Visit [facility] [address] [place] [phone] Mariluz Ritter MD Epigastric pain (Primary Dx); Gastroesophageal reflux disease, unspecified whether esophagitis present 07/07/2024 11:00 AM EST Office Visit [facility] [address] [place] [phone] Phalen Aria, COORDINATOR OF HEALTH SERVICES Osteoarthritis involving multiple joints on both sides of body (Primary Dx); 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 07/07/2024 Travel 07/02/[address] [address] Mario Lion MA august recall 06/16/[address] [address] Mario Lion MA appt attempt no answer 06/15/[address] [phone] Mario Lion MA pre op faxed over 06/15/[address] [phone] Mario Lion MA lab results/ still having symptoms 06/12/2024 1:15 PM EST Office Visit [facility] [address] [place] [address] Leidy Dunham NP Oliguria (Primary Dx); Hypothyroidism, unspecified type; Pre-op evaluation 06/12/2024 Orders Only [facility] [address] [place] [address] Leidy Dunham NP 06/12/2024 Travel 06/10/2024 Telephone [facility] [address] [place] [address] Masha Mcgrath MA Chart Prep from Last 3 Months Immunizations Name Administration Dates Next Due Hep A / Hep B 08/13/2017,03/14/2017,02/10/2017 INFLUENZA INJECTABLE QUADRIV ALANT CCIIV4 MDCK Multi-dose vial 06/13/2018 Influenza injectable quadriv alent preservative free 04/27/2022,04/26/2021,05/18/2019 Influenza, seasonal, injecta ble, preservative free 04/25/2015 TD (adult), 2 Lf tetanus tox oid, preservative free, adsorbed 04/27/2022,02/10/2017 Family History Medical History Relation Name Comments Lung cancer Father Diabetes Mother Heart disease Mother Breast cancer Mother's Sister Relation Name Status Comments Father Mother Mother's Sister Social History Tobacco Use Types Packs/Day Years Used Date Smoking Tobacco: Former Cigarettes S tarted: 1979 Passive Smoke Exposure: Current Smokeless Tobacco: Never Tobacco Cessation:Counseling Given: Not Answered Comments:Pt uses vapes Alcohol Use Standard Drinks/Week [...] Orientation Straight 02/02/2023 7: 55 AM EDT Last Filed Vital Signs Vital Sign Reading Time Taken Comments Blood Pressure 140/90 07/23/2024 12:14 PM EST Pulse 96 07/23/2024 9:44 AM EST Temperature 36.8 ??C (98.3 ??F) 07/23/2024 9:44 AM ES T Respiratory Rate 24 07/23/2024 9:44 AM EST Oxygen Saturation 99% 07/23/2024 9:44 AM EST Inhaled Oxygen Concentration - - Weight 86.3 kg (190 lb 3.2 oz) 07/23/2024 9:44 A M EST Height 167.6 cm (5' 6 ) 07/23/2024 9:44 AM EST Body Mass Index 30.7 07/23/2024 9:44 AM EST Plan of Treatment Upcoming Encounters Date Type Department Care Team (Late st Contact Info) Description 09/07/2024 1:45 PM EST Office Visit [facility] [address] [place] [phone] Leidy Dunham NP [address] [place] [address] 09/22/2024 9:45 AM EST Office Visit [facility] [address] [place] [phone] Health Maintenance Due Date Last Done Comments CT Colonography 1968 FIT DNA/Cologuard 1970 FIT 1970 FOBT 1970 Sigmoidoscopy 1970 Hepatitis C Screening 1986 Pneumococcal Vaccine: 50+ Years (1 of 1 - PCV) 2018 Zoster Vaccines (1 of 2) 2018 DTaP/Tdap/Td Vaccines (1 - Tdap) 04/28/2022 04/27/2022, 02/10/2017 Cervical Cancer Screening 02/12/2023 HPV/Cotest 02/12/2023 06/04/2022 Pap Smear 02/12/2023 06/04/2022 Dental Oral Exam 11/21/2023 05/21/2023 Dental Prophylaxis 11/21/2023 05/21/2023 Depression Screening 12/08/2023 12/07/2022, 12/08/19 23 COVID-19 Vaccine ( season) 2024 02/28/2022, 09/14/2021, 12/30/2020 Influenza Vaccine (#1) 2024 , 04/26/2021, 05/18/2019, Additional history exists Dental X-Ray: Bitewings 05/22/2024 05/21/2023 SDOH Screening 01/27/2025 01/28/2024 Tobacco Screening 05/21/2025 05/21/2024 Alcohol/Substance Use Screening 06/12/2025 06/12/2024 Mammogram 10/20/2025 10/21/2023, 04/29, 05/16/2022 Dental X-Ray: Full Mouth 05/22/2026 05/21/2023 Lipid Panel 11/18/2028 11/19/2023, 07/29, 12/12/2022, Additional history exists Colonoscopy 11/24/2031 11/23/2021 Colorectal Cancer Screening 11/24/2031 RSV Patients and Patients Aged 60 years or older (1 - 1-dose 75+ series) 2043 Hepatitis A Vaccines Completed 08/13/2017, 03/14/2017, 02/10/2017 Hepatitis B Vaccines Completed 08/13/2017, 03/14/2017, 02/10/2017 HIV Screening Completed 09/14/2020 HIB Vaccines Aged Out No longer eligi ble based on patient's age to complete this topic HPV Vaccines Aged Out No longer eligi ble based on patient's age to complete this topic IPV Vaccines Aged Out No longer eligi ble based on patient's age to complete this topic Meningococcal Vaccine Aged Out No gaby marques eligible based on patient's age to complete this topic RSV under 20 months Aged Out No longe r eligible based on patient's age to complete this topic Rotavirus Vaccines Aged Out No longer eligible based on patient's age to complete this topic Procedures Procedure Name Priority Date/Time Associated Diagnosis Comments POCT MAU-14 URINE DRUG SCREEN Routine 08/25/2024 1:56 PM EST 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 XR LUMBAR SPINE 2-3 VIEWS Routine 08/13/2024 3:40 PM EST XR THORACIC SPINE 3 VIEWS Routine 08/13/2024 3:40 PM EST POCT HEMOGLOBIN Routine 07/23/2024 10:21 AM EST Gastroesophageal reflux disease, unspecified whether esophagitis present Epigastric pain POCT MAU-14 URINE DRUG SCREEN Routine 07/07/2024 1:58 PM EST 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 CULTURE, URINE, ROUTINE Routine 06/12/2024 7:16 PM EST POCT URINALYSIS DIPSTICK Routine 06/12/2024 2:33 PM EST Oliguria POCT URINALYSIS DIPSTICK Routine 06/12/2024 2:20 PM EST Oliguria URINALYSIS, COMPLETE, WITH REFLEX TO CULTURE Routine 06/12/2024 12:00 AM EST Oliguria LIPID PANEL, STANDARD Routine 11/19/2023 4:25 AM EDT BI MAMMOGRAM SCREENING TOMOSYNTHESIS BILATERAL Routine 10/21/2023 12:25 PM EDT PROPHYLAXIS - ADULT Routine 05/21/2023 1 :00 PM EDT Dental calculus DIAGNOSTIC - DIAGNOSTIC IMAGING - INTRAORAL - COMPREHENSIVE SERIES OF RADIOGRAPHIC IMAGES Routine 05/21/2023 1:00 PM EDT Dental calculus COMPREHENSIVE ORAL EVALUATION - NEW OR ESTABLISHED PATIENT Routine 05/21/2023 1:00 PM EDT Dental calculus THINPREP IMAGING PAP AND HPV MRNA E6/E7 WITH REFLEX TO HPV 16,18/45 Routine 06/04/2022 11:10 AM EST HM COLONOSCOPY Routine 11/23/2021 8:53 AM EDT ZZZ HISTORICAL HIV AB/AG Routine 09/14/2020 8:55 AM EST from Last 3 Months or Most Recently Relevant to Health Maintenance Results * POCT MAU-14 Urine Drug Screen (08/25/2024 1:56 PM EST) Only the most recent of2 resultswithin the time period is included. THC Positive Urine Urine specimen obtained by clean catch procedure / Unknown 08/25/2024 1:56 PM EST Leidy Dunham NP POINT OF CARE TEST ENTER/EDIT OR DERABLES Final Result * XR Lumbar Spine 2-3 Views (08/13/2024 3:40 PM EST) Anatomical Region Laterality Modality Spine, L-spine Radiographic Anna ging 08/13/2024 3:40 PM EST Narrative 08/13/2024 4:19 PM EST ? [facility] ?[address] ?[place] [address] ?XRay Report ? Signed ? Patient: Osl,Kristal A ?MR#: [id number] ? : 1970 ?Acct:[id number] ? Age/Sex: 54 / F ?ADM Date: 01/16/25 ? Loc: HO.ED ? Attending Dr: ? Ordering Physician: Lauren Liriano ?? Date of Service: 08/13/24 ?? Procedure(s): XR lumbar spine 2-3V ?? Accession Number(s): [id number] ? cc: Leidy Dunham PLANER MILL GRADER; Lauren Liriano ? EXAMINATION: ?? XR LUMBOSACRAL [...] Moralez MD ??08/13/2024 04:17 PM EST RP ?? Workstation: [id number] ? Dictated By: ?Parminder Moralez MD ? Signed By: ?<Electronically signed by Parminder Moralez MD in OV> ?08/13/24 1617 ? DD/ 1540 ? TD/TT: 08/13/24 1600 ? Imaging Scheduler: ? Procedure Note Maral, Image - 08/13/[address] [address] XRay Report Signed Patient: Kristal Storey AMR#: [id number] : 1970Acct:[id number] Age/Sex: 54 / FADM Date: 08/13/24 Loc: HO.ED Attending Dr: Ordering Physician: Lauren Liriano Date of Service: 08/13/24 Procedure(s): XR lumbar spine 2-3V Accession Number(s): [id number] cc: Leidy Dunham PLANER MILL GRADER; Lauren Liriano EXAMINATION: XR LUMBOSACRAL SPINE CLINICAL [...] 08/13/24 1617 DD/ 1540 TD/TT: 08/13/24 1600 Imaging Scheduler: [facility] External Provider IMG XR PROCEDURES Final Result * XR Thoracic Spine 3 Views (08/13/2024 3:40 PM EST) Anatomical Region Laterality Modality Spine, T-spine Radiographic Anna ging 08/13/2024 3:40 PM EST Narrative 08/13/2024 4:16 PM EST ? [facility] ?[address] ?[place] [address] ?XRay Report ? Signed ? Patient: Osl,Kristal A ?MR#: [id number] ? : 1970 ?Acct:[id number] ? Age/Sex: 54 / F ?ADM Date: 08/13/24 ? Loc: HO.ED ? Attending Dr: ? Ordering Physician: Lauren Liriano ?? Date of Service: 08/13/24 ?? Procedure(s): XR thoracic spine 3V ?? Accession Number(s): [id number] ? cc: Leidy Dunham [employer]ILL GRADER; Lauren Liriano ? EXAMINATION: ?? XR THORACIC [...] DD/ 1540 ? TD/TT: 08/13/24 1600 ? Imaging Scheduler: ? Procedure Note Maral, Image - 08/13/[address] [address] XRay Report Signed Patient: Kristal Storey AMR#: [id number] : 1970Acct:[id number] Age/Sex: 54 / FADM Date: 08/13/24 Loc: HO.ED Attending Dr: Ordering Physician: Lauren Liriano Date of Service: 08/13/24 Procedure(s): XR thoracic spine 3V Accession Number(s): [id number] cc: Leidy Dunham PL[employer]ILL GRADER; Lauren Liriano EXAMINATION: XR THORACIC SPINE CLINICAL [...] by: Parminder Moralez MD 08/13/2024 04:13 PM EST Dictated By: Parminder Moralez MD Signed By: <Electronically signed by Parminder Moralez MD in OV> 08/13/24 1613 DD/ 1540 TD/TT: 08/13/24 1600 Imaging Scheduler: [facility] External Provider IMG XR PROCEDURES Final Result * POCT Hemoglobin (07/23/2024 10:21 AM EST) Hemoglobin 14.1 12.0 - 15.0 Blood 07/23/2024 10:2 1 AM EST Mariluz Ritter MD POINT OF CARE TEST ENTER/EDIT ORDERABLES Final Result * Culture, Urine, Routine (06/12/2024 7:16 PM EST) Urine Urine specimen obtained by clean catch procedure / Unknown 06/12/2024 7:16 PM EST 06/12/2024 7:16 PM EST Comment:[facility] Narrative [facility] - 06/14/2024 7:46 AM EST Urine Culture Report Result Urine Culture 50,000 to 100,000 cfu/ml Urine Culture Mixed bacterial lucian characteristic of Urine Culture urogenital contamination. Specimen Source: Urine clean catch Leidy Dunham NP LAB MICROBIOLOGY - GENERAL ORDER DENNIS Final Result [facility] [address] [place] [address] [phone] * (ABNORMAL) POCT Urinalysis (06/12/2024 2:33 PM EST) Only the most recent of2 resultswithin the time period is included. Color, UA Yellow Clarity, UA Clear Glucose, UA Negative Bilirubin, UA Few 15 Ketones, UA Positive Spec Grav, UA 1.025 Blood, UA Negative Negative, None Detected pH, UA 6.5 Protein, UA 1+ 70+ Urobilinogen, UA 0.2 Leukocytes, UA Few 15(A) Negative, Rare, Trace Nitrite, UA Negative Negative, None Detected Appearance, UA Clear QC Media Lot # [id number] Lot# Expiration Date Urine 06/12/2024 2:33 PM EST Leidy Dunham NP POINT OF CARE TEST ENTER/EDIT OR DERABLES Final Result * (ABNORMAL) Urinalysis, Complete, with Reflex to Culture (06/12/2024 12:00 AM EST) Color Urine Yellow [facility] Appearance Urine Clear [facility] PH 6.5 5.0 - 9.0 [facility] Glucose Urine UA Negative Negative mg/dL [facility] Urine Blood Negative Negative [facility] Specific [place] - Urine 1.025 1.005 - 1.025 [facility] Urine Protein Trace Neg-Trace mg/dL [facility] Urine Ketones Trace Negative mg/dL [facility] Nitrite Urine Negative Negative [facility] Leukocyte Esterase Urine Moderate (2+)(A) Negative [facility] RBC Urine 0-2 0 - 2 /HPF [facility] Urine WBC 11-20(A) 0 - 5 /HPF [facility] Urine Squamous Epithelial Cell 6-10 0 - 2 /HPF [facility] CALCIUM OXALATE CRYSTAL, UR Present [facility] Urine Bacteria None Seen None Seen [facility] Hyaline Casts, Urine 3-5 0 - 2 /LPF [facility] Urine 06/12/2024 06/12/2024 Narrative [facility] - 06/12/2024 6:15 PM EST Urine, Clean Catch us Leidy Dunham [employer] GRADER LAB URINE ORDERABLES Final Resul t Performing Organization Address [facility] Co de Phone Number [facility] [address], [place] [phone] * (ABNORMAL) Lipid Panel, Standard (11/19/2023 4:25 AM EDT) Triglycerides 141 <150 mg/dL [facility] Comment:Desirable Triglyceri de: less than 150 mg/dLBorderline High Triglyceride 150-199 mg/dLHigh Triglyceride: 200-499 mg/dLVery High Triglyceride: greater than or equal to 5OO mg/dL Cholesterol 199 <200 mg/dL [facility] Comment:Desirable Cholestero l: less than 200 mg/dLBorderline High Cholesterol: 200-239 mg/dLHigh Cholesterol: greater than 239 mg/dL LDL Cholesterol Calculated 106(H) <100 mg/dL [facility] Comment:Desirable LDL: less than 100 mg/dLNear Optimal/Above Optimal LDL: 110- 129 mg/dLBorderline High LDL: 130-159 mg/dLHigh LDL: 160-189 mg/dLVery High LDL: greater than or equal to 190 mg/dL HDL Cholesterol 65 >40 mg/dL [facility] Comment:Desirable HDL: great er than 40 mg/dL Note: This HDL assay may give artificially low results in patients with liver disease. 11/19/2023 4:25 AM EDT 11/19/2023 4:31 AM EDT us Generic External Data Provider LAB BLOOD ORDERAB LES Final Result [facility] [address] [place] [address] [phone] * BI Mammogram Screening Tomosynthesis Bilateral (10/21/2023 12:25 PM EDT) Anatomical Region Laterality Modality Breast Bilateral Mammography 10/21/2023 12:2 5 PM EDT Narrative 10/28/2023 4:19 PM EDT ? [facility] ? [address] ?[place] [address] ? Mammography Report ? Signed ? Patient: Osl,Kristal A ?MR#: [id number] ? : 1970 ?Acct:[id number] ? Age/Sex: 53 / F ?ADM Date: 10/21/23 ? Loc: HO.MAMMO ? Attending Dr: Josette Stuart PLANER MILL GRADER ? Ordering Physician: Josette Stuart PLANER MILL GRADER ?Results: 1Negativ ?? e ? Date of Service: 10/21/23 ?Follow Up: 1 Year From Orig ?? inal Mammogram ? Procedure(s): MM tomosynthesis screening BI ?? Accession Number(s): [id number] ? cc: Josette Stuart PLANER MILL GRADER ? EXAMINATION: ?? MM SCREENING DIGITAL BREAST TOMOSYNTHESIS, BILATERAL ? CLINICAL INFORMATION: ? Screening. Asymptomatic. ? COMPARISON: ?? Mammography: This study is compared with prior exams dating back to ?? 2021. ? TECHNIQUE: ?? Digital breast tomosynthesis is performed in both the craniocaudal and ?? mediolateral oblique views along with computer-aided detection (CAD). ?? Synthesized 2D images are generated from the tomosynthesis. ? FINDINGS: ?? There are scattered areas of fibroglandular density (ACR BI-RADS breast ?? composition Category b). ? There are no significant masses, abnormal calcifications, or other ?? abnormalities. ? MM/MM tomosynthesis screening BI ?? IMPRESSION: ?? No mammographic evidence of malignancy. ? ASSESSMENT: ? BI-RADS BI-RADS 1 - Negative ? RECOMMENDATION: ?? Routine annual mammography screening. ? 1 year F/U ? This examination should not preclude the clinical evaluation of a ?? suspicious palpable abnormality. ? This patient's information was entered into a reminder system with a ?? target due date for their next mammogram. ? Dictated By: ?Savanah Gutierrez MD ? Signed By: ?<Electronically signed by Savanah Gutierrez MD in OV> ? 10/28/23 1615 ? DD/ 1225 ? TD/TT: ? Imaging Scheduler: ? Procedure Note Maral, Image - 10/28/2023 [facility] [address] [place] [address] Mammography Report Signed Patient: Kristal Storey AMR#: [id number] : 1970Acct:[id number] Age/Sex: 53 / FADM Date: 10/21/23 Loc: HO.MAMMO Attending Dr: Josette Stuart PLANER MILL GRADER Ordering Physician: Josette Stuart NPResults: 1Negativ e Date of Service: 10/21/23Follow Up: 1 Year From Orig inal Mammogram Procedure(s): MM tomosynthesis screening BI Accession Number(s): [id number] cc: Josette Stuart PLANER MILL GRADER EXAMINATION: MM SCREENING DIGITAL BREAST TOMOSYNTHESIS, BILATERAL CLINICAL INFORMATION: Screening. Asymptomatic. COMPARISON: Mammography: This study is compared with prior exams dating back to 2021. TECHNIQUE: Digital breast tomosynthesis is performed in both the craniocaudal and mediolateral oblique views along with computer-aided detection (CAD). Synthesized 2D images are generated from the tomosynthesis. FINDINGS: There are scattered areas of fibroglandular density (ACR BI-RADS breast composition Category b). There are no significant masses, abnormal calcifications, or other abnormalities. MM/MM tomosynthesis screening BI IMPRESSION: No mammographic evidence of malignancy. ASSESSMENT: BI-RADS BI-RADS 1 - Negative RECOMMENDATION: Routine annual mammography screening. 1 year F/U This examination should not preclude the clinical evaluation of a suspicious palpable abnormality. This patient's information was entered into a reminder system with a target due date for their next mammogram. Dictated By: Savanah Gutierrez MD Signed By: <Electronically signed by Savanah Gutierrez MD in OV> 10/28/23 1615 DD/ 1225 TD/TT: Imaging Scheduler: Josette Stuart COORDINATOR OF HEALTH SERVICES IMG BI PROCEDURES Final Result * (ABNORMAL) THINPREP TIS PAP AND HPV mRNA E6/E7 WITH REFLEX TO HPV 16,18/45 (06/04/2022 11:10 AM EST) Clinical Information: None given CONVERTED LEGACY LABS COMMENT SEE COMMENT [facility]VER[facility]GAC[facility] LABS Comment: EXPLANATORY NOTE: ? The Pap is a screening test for cervical cancer. It is ?? not a diagnostic test and is subject to false negative ?? and false positive results. It is most reliable when a ?? satisfactory sample, regularly obtained, is submitted ?? with relevant clinical findings and history, and when ?? the Pap result is evaluated along with historic and ?? current clinical information. ?? COMMENT: This Pap test has been evaluated with computer assisted technology. CONVERTED LEGACY LABS Hot Box Checker : SEE COMMENT CONVERTED LEGACY LABS Comment: BLC,CT(ASCP) CT screening location: [address] ??[address] General Categorization: EPITHELIAL CELL ABNORMALITY(A) CONVERTED LEGACY LABS HPV nRNA E6/E7 Detected(A) Not Detected CONVERTED LEGACY LABS Comment: Methodology: Legislative Assistant-Mediated Amplification This assay detects E6/E7 viral messenger RNA (mRNA) from 14 high-risk HPV types (16,18,31,33,35,39,45,51,52,56,58,59,66,68). ? Cervical sources are required for HPV testing. If a vaginal source from a patient who has had a total hysterectomy with removal of cervix was ?? submitted, please contact the testing laboratory for alternative testing options. ?? For additional information, please refer to http://education.VectorLearning/faq/RZH653n8 (This link if provided for information/ educational purposes only.) Interpretation/R esult: Atypical Squamous Cells of Undetermined Significance (ASC-US)(A) CONVERTED LEGACY LABS LMP: NONE GIVEN CONVERTED LEGACY LABS PATHOLOGIST: SEE COMMENT CONVE RTED LEGACY LABS Comment: Africa Shaikh MD, PhD, Board Certified in Anatomic and Clinical Pathology (electronic signature) Consulting Pathologist [facility] [address] [place] [address] Prev. BX: NONE GIVEN CONVERTED LEGACY LABS Prev. PAP: NONE GIVEN CONVERTE D LEGACY LABS SOURCE: None given CONVERTED LEGACY LABS Statement Of Adequacy: SATISFACTORY FOR EVALUATION CONVERTED LEGACY LABS 06/04/2022 11:1 0 AM EST us Mark Wheeler MD LAB PATHOLOGY ORDERABLES Fin al Result CONVERTED LEGACY LABS * Colonoscopy (11/23/2021 8:53 AM EDT) Pathologist [facility] [place] Colonoscopy Normal Normal Narrative Mirtha Everett - 11/23/2021 8:53 AM EDT Recommended 10 year follow up ( [facility] [place] Historical Provider HEALTH MAINTENANCE Edited Result - Final * HIV AB/AG (09/14/2020 8:55 AM EST) Pathologist [facility] [place] HIV AB/AG Nonreactive Nonreactive [facility] Comment: HIV-1 p24 Ag and/or HIV-1/HIV-2 Ab not detected. ?? A test result that is nonreactive does not exclude the possibility of exposure to or infection with HIV-1 and/or HIV-2. Nonreactive results in this assay for individuals with prior exposure to HIV-1 and/or HIV-2 may be due to antigen and antibody levels that are below the limit of detection of this assay. ?? The Vieira Fur Farmer HIV Ag/Ab Combo assay result and supplemental assay results should be interpreted in conjunction with the patient's clinical presentation, history and other laboratory results. ??If the results are inconsistent with clinical evidence, additional testing is suggested to confirm the result. 09/14/2020 8:55 AM EST us Mark Wheeler MD HISTORICAL/NON ORDERABLE LAB S Final Result [facility] [address] from Last 3 Months or Most Recently Relevant to Health [place] [id number] [facility] STANDARD [address] [place] [address] [place] STAND AD[place] * Guarantor: Kristal Storey Account Type Relation to Patient Date of Phone Billing Address Personal/Family Self [address] [place] Care Teams Top Tile Decorator Relationship Specialty Start Date End Date Leidy Dunham NP [address] [place] [id number] PCP - General Family Medicine 03/31/24
--- NOTE | 2024-08-30 14:04 | ED.ABDPAIN ---
HPI - Abdominal Pain General Chief Complaint: Abdominal Pain Stated Complaint: NAUSEA VOMITING Time Seen by Provider: 08/30/24 13:55 Source: patient, EMS, RN notes reviewed and old records reviewed Mode of arrival: EMS Limitations: no limitations History of Present Illness ED Provider: DR. Bedoya HPI narrative: 54-year-old female with past medical history of acute pancreatitis, Schatzki ring, diverticular disease, hiatal hernia, hypothyroid, obesity patient presented with diffuse abdominal pain with nausea and vomiting since last night patient noted coffee-ground vomit, complain of intermittent diffuse abdominal pain and vomiting. Patient had a previous ED visit and hospitalization for similar symptoms. Related Data Home Medications ?Medication ?Instructions ?Recorded ?Confirmed simvastatin 5 mg tablet 5 mg PO BEDTIME 11/08/20 01/22/24 gabapentin 300 mg capsule 300 mg PO BID 10/17/21 01/22/24 hydroxyzine pamoate 25 mg capsule 50 mg PO BEDTIME PRN Anxiety 10/17/21 01/22/24 omeprazole 20 mg capsule,delayed 20 mg PO BID@0630,1630 10/17/21 01/22/24 release amlodipine 10 mg tablet 10 mg PO DAILY 11/19/23 01/22/24 cetirizine 10 mg tablet 10 mg PO DAILY 11/19/23 01/22/24 gabapentin 400 mg capsule 400 mg PO BEDTIME 11/19/23 01/22/24 levothyroxine 175 mcg tablet 175 mcg PO DAILY@0600 11/19/23 01/22/24 lisinopril 20 1 tab PO DAILY 11/19/23 01/22/24 mg-hydrochlorothiazide 12.5 mg tablet prazosin 5 mg capsule 5 mg PO BEDTIME 11/19/23 01/22/24 sucralfate 100 mg/mL oral 10 ml PO BID@0630,1630 11/19/23 01/22/24 suspension (Carafate) duloxetine 10 mg PO BEDTIME 01/22/24 01/22/24 Previous Rx's ?Medication ?Instructions ?Recorded loperamide 2 mg capsule 2 mg PO Q6H PRN loose stool #20 07/17/24 caps ondansetron 4 mg disintegrating 4 mg PO Q6H PRN nausea and 07/17/24 tablet vomiting #14 tabs Allergies Allergy/AdvReac Type Severity Reaction Status Date / Time Penicillins Allergy Severe Anaphylaxis Verified 08/30/24 13:49 Review of Systems Review of Systems All other systems are reviewed and are negative Constitutional: Reports as per HPI and Reports no additional constitutional complaints Eyes: Reports as per HPI and Reports no additional eye complaints Reports system reviewed and no additional complaints, except as documented Cardiovascular: Reports as per HPI and Reports no additional cardiovascular complaints Respiratory: Reports as per HPI and Reports no additional respiratory complaints Gastrointestinal: Reports as per HPI and Reports no additional gastrointestinal complaints Genitourinary: Reports no additional female genitourinary complaints Musculoskeletal: Reports no additional musculoskeletal complaints Skin/Breast: Reports system reviewed and no additional complaints, except as docu Psychiatric: Reports no additional psychiatric complaints Endocrine: Reports no additional endocrine complaints Hematologic/Lymphatic: Reports no additional hematologic/lymphatic complaints Allergic/Immunologic: Reports no additional allergic/immunologic complaints Reports system reviewed and no additional complaints, except as documented and Reports Abnormal speech present [facility] Past Medical History Medical History Foreign body (FB) in soft tissue Personal history of nicotine dependence Hyperlipidemia Nausea & vomiting Hypochromic microcytic anemia Obesity due to excess calories Hypothyroidism Osteoarthritis Essential hypertension Surgical History History of hernia surgery History of shoulder surgery History of tonsillectomy History of colonoscopy History of esophagogastroduodenoscopy (EGD) History of carpal tunnel release Family History Family History Father Lung cancer Mother Congestive heart failure Type 2 diabetes mellitus Social History Social History Household Members: Family Household Members Other:: 2 Housing: House Housing Other:: sober community Do you presently have visiting nurse or other home services: No Unable to assess alcohol history related to: Unknown Alcohol intake: former Comment: patient is 1:1 supervision Patient Tobacco Use Status: Current everyday Tobacco user Tobacco use type: Smokeless Tobacco Years Smoked: 20 Substance Use Type: Marijuana Advance Directives: No Advance Directives Information Provided: No Do you have a plan to hurt others: No Plan service: No Current occupational status: employed Physical Exam ED Vital Signs: Vital Signs - 24 hr 08/30/24 14:41 Temperature 98.6 F Pulse Rate 112 H Respiratory Rate 15 Blood Pressure 181/118 H Pulse Oximetry 98 Oxygen Delivery Method Room Air BMI result Body Mass Index 31.5 Vital signs have been reviewed and appear to be correct. Blood pressure elevated. Heart rate normal. Respiratory rate normal. Temperature normal. Oxygen saturation normal. Appearance: Alert. Oriented X3. No acute distress. Head: Normal external exam. Normocephalic. Atraumatic. No [place] signs noted. No raccoon eyes noted Eyes: PERRLA. EOMI. Conjunctiva and sclera normal. Eyelids normal. ENT: TM's Normal. Pharynx normal. Uvula midline. Moist mucous membranes. No trismus noted. No drooling noted. No muffled voice noted. Neck: Normal inspection. Neck supple. FROM. No adenopathy. Thyroid Normal. No meningeal signs. No neck mass noted. CVS: Normal heart rate and rhythm. Heart sound normal. No murmurs noted. Pulses normal throughout. Respiratory: No respiratory distress. Painless inspiration. Breath sounds normal. No wheezes/rales/rhonchi noted. Chest nontender. No accessory muscle usage noted or decreased air movement noted. Abdomen: Soft and nontender. Bowel sounds normal in all 4 quadrants. No distention noted. No organomegaly noted. No visible injury noted. Back: No CVA tenderness. Full range of motion noted. Skin: Skin warm and dry. Normal skin color. Normal skin turgor. No rashes/lesions/lacerations noted. Extremities: No lower extremity edema. Extremities exhibit normal range of motion. Extremities nontender. Neuro: Oriented X 3. Cranial nerve exam: II-XII are grossly intact No motor deficit. No sensory deficit. Reflexes normal. Course Reevaluation(s) Reevaluation #1: patient feels better now Improved abdominal pain and nausea, await for CT result for dispo, signed out to Dr. Culp. Time: 16:34 Medical Decision Making Differential Diagnosis Differential Diagnoses: The differential diagnosis associated with the presentation includes ( appendicitis, colitis, pancreatitis, acute cholecystitis, diverticulitis, electrolyte derangement, severe anemia.) Admission/Observation Consideration of admission/observation: Escalation of care including admission/observation considered Lab Data MDM Lab Attestation statement: I reviewed the patient's lab results. 08/30/24 14:40 08/30/24 14:40 Labs: Lab Results 08/30/24 08/30/24 Range/Units 14:40 15:39 WBC 19.0 H (4.8-10.8) X10*3/uL RBC 5.52 H (4.20-5.50) X10*6/uL Hgb 14.9 (12.0-16.0) g/dl Hct 41.9 (37.0-47.0) % MCV 75.9 L (80.0-98.0) fL MCH 27.0 (27.0-33.0) pg MCHC 35.6 H (31.0-35.0) g/dl RDW 15.2 (11.0-16.0) % Plt Count 443 H (160-400) X10*3/uL MPV 10.3 (9.4-12.3) fL Immature Gran % (Auto) Cancelled Neut % (Auto) Cancelled Lymph % (Auto) Cancelled [place] % (Auto) Cancelled Eos % (Auto) Cancelled Baso % (Auto) Cancelled Lymph # (Auto) Cancelled [place] # (Auto) Cancelled Eos # (Auto) Cancelled Baso # (Auto) Cancelled Abs Immat Gran (auto) Cancelled Absolute Neuts (auto) Cancelled Absolute Nucleated RBC 0.000 (0.0-0.012) X10*3/uL Nucleated RBC % (auto) 0.0 (0.0-0.2) /100WBC Neutrophils % (Manual) 84 H (45-73) % Band Neutrophils % 1 L (3-5) % Lymphocytes % (Manual) 5 L (20-40) % Monocytes % (Manual) 10 (2-11) % Abs Neuts (Manual) 16.2 H (2.0-8.3) X10*3/uL Lymphocytes # (Manual) 1.0 L (1.2-4.9) X10*3/uL Monocytes # (Manual) 1.9 H (0.1-1.2) X10*3/uL Platelet Estimate SLIGHTLY INCREASED (NORMAL) Plt Morphology Comment NORMAL RBC Morphology NOTED Ovalocytes 1+ (5-14) /OIF Sodium 135 (135-145) mmol/L Potassium 3.0 L (3.3-5.1) mmol/L Chloride 99 (96-108) mmol/L Carbon Dioxide 19 L (22-29) mmol/L Anion Gap 20 (12-20) BUN 24 H (9-16) mg/dL Creatinine 1.30 (0.5-1.4) mg/dL Estim Creat Clear Calc 54.1 Estimated GFR 42 Random Glucose 132 H (60-115) mg/dL Calcium 9.8 (8.4-10.2) mg/dL Total Bilirubin 1.1 H (0.0-1.0) mg/dL Direct Bilirubin 0.3 (0.0-0.5) mg/dL AST 28 (5-31) U/L ALT 11 (0-31) U/L Alkaline Phosphatase 87 (39-117) U/L Troponin I High Sens 50.0 H D (<3.5-17.0) ng/L Total Protein 8.6 H (6.5-8.0) g/dL Albumin 4.8 (3.5-5.0) g/dL Lipase 19 (8-78) U/L Urine Color Yellow Urine Appearance Clear Urine pH 6.0 (5.0-9.0) Ur Specific [place] 1.020 (1.005-1.025) Urine Protein 300 (3+) H (Neg-Trace) mg/dL Urine Glucose (UA) Negative (Negative) mg/dL Urine Ketones 40 (Negative) mg/dL Urine Blood Negative (Negative) Urine Nitrite Negative (Negative) Ur Leukocyte Esterase Negative (Negative) Urine RBC 0-2 (0-2) /HPF Urine WBC 0-5 (0-5) /HPF Ur Squamous Epith Cells 0-2 (0-2) /HPF Urine Bacteria None Seen (None Seen) Hyaline Casts 3-5 (0-2) /LPF Independent Interpretation I performed an independent interpretation of an: CT Scan Medications Administered Discontinued Medications Generic Name Dose Route Start Last Admin Trade Name Freq PRN Reason Stop Dose Admin Hydromorphone HCl 1 mg 08/30/24 13:59 08/30/24 14:22 Hydromorphone Hcl 1 Mg/Ml Syringe IVPUSH 08/30/24 14:00 1 mg ONCE ONE Administration Protocol Sodium Chloride 1,000 mls @ 999 mls/hr 08/30/24 13:59 08/30/24 14:22 Ns IV 08/30/24 14:59 999 mls/hr .Q1H1M ONE Administration Ketorolac Tromethamine 15 mg 08/30/24 13:59 08/30/24 14:23 Ketorolac Tromethamine 15 Mg/Ml Vial IVPUSH 08/30/24 14:00 15 mg ONCE ONE Administration Ondansetron HCl 4 mg 08/30/24 13:59 08/30/24 14:23 Ondansetron Hcl 4 Mg/2 Ml Vial IVPUSH 08/30/24 14:00 4 mg ONCE ONE Administration Pantoprazole Sodium 40 mg 08/30/24 13:59 08/30/24 14:23 Pantoprazole Sodium 40 Mg/10 Ml Vial IVPUSH 08/30/24 14:00 40 mg ONCE ONE Administration Discharge Plan Discharge Clinical Impression: Abdominal pain, Nausea & vomiting Patient Disposition: Still a Patient Prescriptions: No Action gabapentin 300 mg Capsule 300 mg PO BID omeprazole 20 mg Capsule,Delayed Release(Dr/Ec) 20 mg PO BID@0630,1630 hydroxyzine pamoate 25 mg Capsule 50 mg PO BEDTIME PRN (Reason: Anxiety) duloxetine 10 mg PO BEDTIME loperamide 2 mg capsule 2 mg PO Q6H PRN (Reason: loose stool) Qty: 20 0RF ondansetron 4 mg tablet,disintegrating 4 mg PO Q6H PRN (Reason: nausea and vomiting) Qty: 14 0RF amlodipine 10 mg Tablet 10 mg PO DAILY gabapentin 400 mg Capsule 400 mg PO BEDTIME levothyroxine 175 mcg Tablet 175 mcg PO DAILY@0600 prazosin 5 mg Capsule 5 mg PO BEDTIME cetirizine 10 mg Tablet 10 mg PO DAILY sucralfate [Carafate] 100 mg/mL Suspension 10 ml PO BID@0630,1630 lisinopril-hydrochlorothiazide 20-12.5 mg Tablet 1 tab PO DAILY simvastatin 5 mg tablet 5 mg PO BEDTIME Print Language: Guyanese
[2024-08-30] MEDS: HYDROmorphone HCl 1 MG/ML SYRINGE IVPUSH ×2 (14:22→17:11)
[2024-08-30] MEDS: 0.9 % Sodium Chloride 1,000 ML 999 ML IV (14:22)
[2024-08-30] MEDS: ondansetron HCL 4 MG/2 ML VIAL IVPUSH (14:23)
[2024-08-30] MEDS: Pantoprazole Sodium 40 MG/10 ML VIAL IVPUSH (14:23)
[2024-08-30] MEDS: Ketorolac Tromethamine 15 MG/ML VIAL IVPUSH (14:23)
[2024-08-30 14:41] VITALS: BP 181/118; PULSE 112; RESP 15; TEMP 37; O2SAT 98
[2024-08-30 15:11] LABS: Alanine Aminotransferase 11 U/L (0-31); Albumin Level 4.8 g/dL (3.5-5.0); Alkaline Phosphatase 87 U/L (39-117); Anion Gap 20 (12-20); Aspartate Amino Transferase 28 U/L (5-31); Bilirubin Direct 0.3 mg/dL (0.0-0.5); Bilirubin Total 1.1 mg/dL (0.0-1.0); Blood Urea Nitrogen 24 mg/dL (9-16); Calcium 9.8 mg/dL (8.4-10.2); Carbon Dioxide 19 mmol/L (22-29); Chloride 99 mmol/L (96-108); Creatinine Clr Calc Pharmacy 54.1; Estimated Glomerular Filt Rate 42; Glucose Random 132 mg/dL (60-115); Lipase 19 U/L (8-78); Sodium 135 mmol/L (135-145); Total Protein 8.6 g/dL (6.5-8.0)
[2024-08-30 15:14] LABS: Hematocrit 41.9 % (37.0-47.0); Hemoglobin 14.9 g/dl (12.0-16.0); Mean Corpuscular HGB Conc 35.6 g/dl (31.0-35.0); Mean Corpuscular Volume 75.9 fL (80.0-98.0); Mean Platelet Volume 10.3 fL (9.4-12.3); Platelet Count 443 X10*3/uL (160-400); Red Blood Count 5.52 X10*6/uL (4.20-5.50); Red Cell Distribution Width 15.2 % (11.0-16.0)
[2024-08-30 15:16] LABS: Band Neutrophils Percent 1 % (3-5); Lymphocytes Percent Manual 5 % (20-40); Monocytes Absolute Manual 1.9 X10*3/uL (0.1-1.2); Monocytes Percent Manual 10 % (2-11); Neutrophils Absolute Manual 16.2 X10*3/uL (2.0-8.3); Neutrophils Percent Manual 84 % (45-73); Ovalocytes 1+ (5-14) /OIF; Platelet Estimate SLIGHTLY INCREASED (NORMAL); Platelet Morphology Comment NORMAL; RBC Morphology NOTED
[2024-08-30 16:09] LABS: Appearance Urine Clear; Color Urine Yellow; Glucose Urine UA Negative (Negative); Leukocyte Esterase Urine Negative (Negative); Nitrite Urine Negative (Negative); UMIC TRIGGER UACC YES; Urine Blood Negative (Negative); Urine Ketones 40 mg/dL (Negative); Urine Protein 300 (3+) mg/dL (Neg-Trace)
[2024-08-30 16:29] LABS: Bacteria Urine None Seen (None Seen); RBC Urine 0-2 /HPF (0-2); Squamous Epithelial Cell Urine 0-2 /HPF (0-2); WBC Urine 0-5 /HPF (0-5)
--- NOTE | 2024-08-30 17:09 | ECG_ITS ---
Test Reason : JAW PAIN Blood Pressure : */* mmHG Vent. Rate : 105 BPM Atrial Rate : 105 BPM P-R Int : 114 ms QRS Dur : 86 ms QT Int : 384 ms P-R-T Axes : -3 0 4 degrees QTcB Int : 507 ms Sinus tachycardia Nonspecific ST and T wave abnormality Abnormal ECG When compared with ECG of 30-Aug-2024 14:17, Nonspecific T wave abnormality now evident in Lateral leads Referred By: Karley Culp Electronically Signed By: Peña Roper
[2024-08-30 17:11] VITALS: RESP 17
[2024-08-30 17:19] VITALS: BP 142/91; PULSE 96; RESP 14; TEMP 37.9; O2SAT 95
[2024-08-30 17:38] LABS: Troponin-I High Sensitivity 42.2 ng/L (<3.5-17.0)
[2024-08-30] MEDS: Potassium Chloride/H20 10 MEQ/100 ML PIGGYBACK 100 MEQ IV (18:00)
[2024-08-30] MEDS: Acetaminophen 1,000 MG/100 ML PIGGYBACK 400 MG IV (18:35)
[2024-08-30 19:07] LABS: Influenza A PCR NEGATIVE (Negative); Influenza B PCR NEGATIVE (Negative); Resp Syncy Virus RNA Qual PCR NEGATIVE (Negative); SARS COV2 PCR INHOUSE NEGATIVE (Negative)
[2024-08-30 19:11] VITALS: BP 120/80; PULSE 80; RESP 14; TEMP 36.8
--- NOTE | 2024-08-30 19:15 | PC.NURSE ---
this RN assumed care of the patient at 1900. upon entering room to obtain blood cultures/lactic acid, the patient stated she cannot stay overnight as she has to take care of her kittens and has nobody else to watch them. MD harris aware, at bedside. pt will sign AMA forms.
[2024-08-30 19:48] VITALS: BP 120/80; PULSE 80; RESP 14; TEMP 36.8; O2SAT 95
== END 2024-08-30 19:48 | disposition left against medical advice (07) ==
PROVIDERS: Emergency Medicine; Emergency Provider Emergency Medicine; PCP Nurse Practitioner Family
DX: R11.2 Nausea with vomiting, unspecified (principal); R10.2 Pelvic and perineal pain; R00.0 Tachycardia, unspecified; R68.84 Jaw pain; F17.210 Nicotine dependence, cigarettes, uncomplicated; Z03.818 Encounter for observation for suspected exposure to other biological agents ruled out; Z79.899 Other long term (current) drug therapy
CPT/HCPCS: 0241U; 36415; 71045; 74176; 76705; 80048; 80076; 81001; 81003; 83690; 84484; 85007; 85025; 85027; 93005; 96361; 96365; 96375; 99284; J0131; J1171; J1885; J2405; J2470; J3480

== ENCOUNTER → 2024-08-30 13:59 | Outpatient (BNV) | payer MEDICARE, MEDICAID, SELFPAY | PROVIDERS: Emergency Provider Emergency Medicine; PCP Nurse Practitioner Family; Visit Provider Internal Medicine Cardiovascular Disease | DX: R00.0 Tachycardia, unspecified (principal) | CPT/HCPCS: 93010 ==

== ENCOUNTER → 2024-08-30 14:00 | Outpatient (BNV) | payer MEDICARE, MEDICAID, SELFPAY | PROVIDERS: Emergency Provider Emergency Medicine; PCP Nurse Practitioner Family; Visit Provider Nuclear Medicine | DX: R10.11 Right upper quadrant pain (principal); K92.0 Hematemesis | CPT/HCPCS: 74176 ==

== ENCOUNTER 2024-09-07 14:49 | Outpatient (REF) | payer MEDICARE, MEDICAID, SELFPAY ==
--- OUTSIDE RECORDS SUMMARY | 2024-09-07 16:04 | XMS_ITS | Encounter Summary ---
Author Organization [employer] Address [address] [facility] [address] [place] [address] Care Team Providers Care Chemical Recovery Operator Name Role Phone Leidy Dunham NP Primary Care Provider [phone] Reason for Visit * Reason Onset Date Comments Med Refill 08/10/2024 Encounter Details Date Type Department Care Team (Late st Contact Info) Description 08/10/2024 Refill [facility] [address] [place], [place] [phone] Leidy Dunham NP [address] [place], [place] [phone] Low back pain, non-specific (Primary Dx) Social [...] 50 MG tablet To be sent to: [address] [place] [address], [address] documented in this encounter Plan of Treatment Upcoming Encounters Date Type Department Care Team (Late st Contact Info) Description 09/22/2024 9:45 AM EST Office Visit [facility] [address] [place] [address] documented as of this encounter Visit Diagnoses Diagnosis Low back pain, non-specific- Primary documented in this encounter Additional Health Concerns Assessment Noted Time PHQ-9 Depression Total Score: 2 12/08/19 23 1:16 PM EDT documented as of this encounter Care Teams Chemical Recovery Operator Relationship Specialty Start Date End Date Leidy Dunham NP [address] [place] [address] PCP - General Family Medicine 03/31/24 documented as of this encounter
--- OUTSIDE RECORDS SUMMARY | 2024-09-07 16:04 | XMS_ITS | Encounter Summary ---
Author Organization [employer] Address [address] 7t [place] [address] Care Team Providers Care Hunter Guide Name Role Phone Josette Stuart Primary Care Provider [phone] Josette Stuart Primary Care Provider [phone] Leidy Dunham NP Primary Care Provider [phone] Encounter Details Date Type Department Care Team (Late st Contact Info) Description 05/07/2023 Abstract [facility] [address] [place] [address] Mirtha Everett Social History Tobacco Use Types Packs/Day Years [...] housing situation today? I have briseyda blackman 05/05/[address] you li ve. Do you have problems with any of the following? None of the above 05/05/2023 Food Insecurity Answer Date Recorded Within the past 12 months, y ou worried that your food would run out before you got money to buy more: Never True 05/05/2023 Within the past 12 months,th e food you bought just didn't last and you didn't have enough money to get more: Never True 02/2023 Transportation Answer Date Recorded In the past 12 months, has l ack of transportation kept you from medical appts, meetings, work or from getting things needed for daily living? No 05/05/2023 Utilities Answer Date Recorded In the past 12 months, has t he electric, gas, oil or water company threatened to shut off services in your home? No 05/05/2023 Depression Answer Date Recorded Patient Health Questionnaire-2 [...] Description 09/22/2024 9:45 AM EST Office Visit [facility] [address] [place] [address] documented as of this encounter Procedures Procedure Name Priority Date/Time Associated Diagnosis Comments COLPOSCOPY Routine 04/25/2023 documented in this encounter Results * Colposcopy (04/25/2023) us Historical Provider MD IN CLINIC/BEDSIDE ORDERAB LES Final Result documented in this encounter Visit Diagnoses Not on filedocumented in this encounter Additional Health Concerns Assessment Noted Time PHQ-9 Depression Total Score: 2 12/08/19 23 1:16 PM EDT documented as of this encounter Care Teams Hunter Guide Relationship Specialty Start Date End Date Josette Stuart FNP [address] [place] [address] PCP - General Family Medicine 04/30/22 01/27/24 Josette Stuart FNP [address] [place] [address] PCP - General Family Medicine 01/28/24 03/30/24 Leidy Dunham NP [address] [place] [address] PCP - General Family Medicine 03/31/24 documented as of this encounter
--- OUTSIDE RECORDS SUMMARY | 2024-09-07 16:04 | XMS_ITS | Encounter Summary ---
Author Organization [employer] Address [address] 7t [place] [address] Care Team Providers Care Drafting Technician Name Role Phone Leidy Dunham SHAYE Primary Care Provider [phone] Encounter Details Date Type Department Care Team (Latest Contact Info) Description 09/07/2024 Travel Social History Tobacco Use Types Packs/Day Years Used Date Smoking Tobacco: Some Days Cigarettes Started: 1979 Passive Smoke Exposure: Current Smokeless Tobacco: Never Comments:Pt uses vapes Alcohol Use Standard Drinks/Week Comments Never 0 (1 standard drink = 0.6 oz pur e alcohol) Depression Answer Date Recorded Patient Health Questionnaire-9 Score 12 09/07/2024 Patient Health Questionnaire-9 Score 12 09/07/2024 Last PHQ-9: Questionnaire Data Not on file 0 09/07/2024 Housing Stability Answer Date Recorded What is [...] Answer Date Recorded Patient Health Questionnaire-2 Score 2 09/07/2024 Internet Access Answer Date Recorded Internet Access [...] Description 09/22/2024 9:45 AM EST Office Visit [facility] [address] [place] [address] documented as of this encounter Visit Diagnoses Not on filedocumented in this encounter Additional Health Concerns Assessment Noted Time PHQ-9 Depression Total Score: 12 025 2:09 PM EST documented as of this encounter Care Teams Drafting Technician Relationship Specialty Start Date End Date Leidy Dunham NP [address] [place] [address] PCP - General Family Medicine 03/31/24 documented as of this encounter
--- OUTSIDE RECORDS SUMMARY | 2024-09-07 16:04 | XMS_ITS | Encounter Summary ---
Author Organization [employer] Address [address] 7t [place] [address] Care Team Providers Care Senior Data Warehouse Architect Name Role Phone Josette Stuart Primary Care Provider [phone] Josette Stuart Primary Care Provider [phone] Leidy Dunham NP Primary Care Provider [phone] Encounter Details Date Type Department Care Team (Late st Contact Info) Description 09/06/2023 Orders Only [facility] [address] [place] [address] Josette Stuart FNP [address] [facility] [place], [place] [phone] Hypothyroidism, unspecified type (Primary Dx) Social History [...] Description 09/22/2024 9:45 AM EST Office Visit [facility] MED[facility] [address] [place] [address] documented as of this encounter Procedures Procedure Name Priority Date/Time Associated Diagnosis Comments TSH W/REFLEX TO FT4 Routine 10/16/2023 4 :02 PM EDT Hypothyroidism, unspecified type documented in this encounter Results * (ABNORMAL) TSH with Reflex to Free T4 (10/16/2023 4:02 PM EDT) TSH reflex Free T4 0.15(L) 0.32 - 4.0 uIU/mL [facility] Blood 10/16/2023 4:02 PM EDT 10/16/2023 6:04 PM EDT us Josette QUACHP LAB BLOOD ORDERABLES Final Resu lt [facility] [address] [place] [address] [phone] documented in this encounter Visit Diagnoses Diagnosis Hypothyroidism, unspecified type- Primary documented in this encounter Additional Health Concerns Assessment Noted Time PHQ-9 Depression Total Score: 2 12/08/19 23 1:16 PM EDT documented as of this encounter Care Teams Senior Data Warehouse Architect Relationship Specialty Start Date End Date Josette Stuart FNP [address] [place] [address] PCP - General Family Medicine 04/30/22 01/27/24 Josette Stuart FNP [address] [place] [address] PCP - General Family Medicine 01/28/24 03/30/24 Leidy Dunham NP [address] [place] [address] PCP - General Family Medicine 03/31/24 documented as of this encounter
--- OUTSIDE RECORDS SUMMARY | 2024-09-07 16:04 | XMS_ITS | Encounter Summary ---
Author Organization [employer] Address [address] 7[address] [place] [address] Care Team Providers Care Lamp Wirer Name Role Phone NikolasLeidy cesar SHAYE Primary Care Provider [phone] Encounter Details Date Type Department Care Team (Late st Contact Info) Description 08/13/2024 Orders Only [facility] External Provider, [facility] Social History Tobacco Use Types Packs/Day Years [...] Description 09/22/2024 9:45 AM EST Office Visit [facility] MED[facility]INE [address] [place] [address] documented as of this encounter Procedures Procedure [...] EST Narrative 08/13/2024 4:19 PM EST ? [facility] ?[address] ?[place] [address] ?XRay Report ? Signed ? Patient: Osl,Kristal A ?MR#: [id number] ? : 1970 ?Acct:[id number] ? Age/Sex: 54 / F ?ADM Date: //25 ? Loc: HO.ED ? Attending Dr: ? Ordering Physician: Lauren Liriano ?? Date of Service: 08/13/24 ?? Procedure(s): XR lumbar spine 2-3V ?? Accession Number(s): [id number] ? cc: Leidy Dunham INSPECTOR AND CLIPPER; Lauren Liriano ? EXAMINATION: ?? XR LUMBOSACRAL [...] DD/ 1540 ? TD/TT: 08/13/24 1600 ? [employer] Processing [employer] Manager: ? Procedure Note Donzenaidater, Image - 08/13/2024 [place] [address] XRay Report Signed Patient: Kristal Storey AMR#: [id number] : 1970Acct:[id number] Age/Sex: 54 / FADM Date: 08/13/24 Loc: HO.ED Attending Dr: Ordering Physician: Lauren Liriano Date of Service: 08/13/24 Procedure(s): XR lumbar spine 2-3V Accession Number(s): [id number] cc: Leidy Dunham INSPECTOR AND CLIPPER; Lauren Liriano EXAMINATION: XR LUMBOSACRAL SPINE CLINICAL [...] 08/13/24 1617 DD/ 1540 TD/TT: 08/13/24 1600 [employer] Processing Center Manager: [facility] External Provider IMG XR PROCEDURES Final Result * XR Thoracic Spine 3 Views (08/13/2024 3:40 PM EST) Anatomical Region Laterality Modality Spine, T-spine Radiographic Anna ging 08/13/2024 3:40 PM EST Narrative 08/13/2024 4:16 PM EST ? [facility] ?[address] ?[place] [address] ?XRay Report ? Signed ? Patient: Osl,Kristal A ?MR#: [id number] ? : 1970 ?Acct:[id number] ? Age/Sex: 54 / F ?ADM Date: 01/16/25 ? Loc: HO.ED ? Attending Dr: ? Ordering Physician: Lauren Liriano ?? Date of Service: 08/13/24 ?? Procedure(s): XR thoracic spine 3V ?? Accession Number(s): [id number] ? cc: Leidy Dunham INSPECTOR AND CLIPPER; Lauren Liriano ? EXAMINATION: ?? XR THORACIC [...] DD/ 1540 ? TD/TT: 08/13/24 1600 ? [employer] Manager: ? Procedure Note Jorgealma rosapauljunie, Image - 08/13/2024 [place] [address] XRay Report Signed Patient: Kristal Storey AMR#: [id number] : 1970Acct:[id number] Age/Sex: 54 / FADM Date: 08/13/24 Loc: HO.ED Attending Dr: Ordering Physician: Lauren Liriano Date of Service: 08/13/24 Procedure(s): XR thoracic spine 3V Accession Number(s): [id number] cc: Leidy Dunham INSPECTOR AND CLIPPER; Lauren Liriano EXAMINATION: XR THORACIC SPINE CLINICAL [...] by: Parminder Moralez MD 08/13/2024 04:13 PM [facility] Dictated By: Parminder Moralez MD Signed By: <Electronically signed by Parminder Moralez MD in OV> 08/13/24 1613 DD/ 1540 TD/TT: 08/13/24 1600 [employer] Manager: [facility] External Provider IMG XR PROCEDURES Final Result documented in this encounter Visit Diagnoses Not on filedocumented in this encounter Additional Health Concerns Assessment Noted Time PHQ-9 Depression Total Score: 2 12/08/19 23 1:16 PM EDT documented as of this encounter Care Teams Lamp Wirer Relationship Specialty Start Date End Date Leidy Dunham NP [address] [place] [address] PCP - General Family Medicine 03/31/24 documented as of this encounter
--- OUTSIDE RECORDS SUMMARY | 2024-09-07 16:04 | XMS_ITS | Data Portability ---
Author Organization BRAYDEN Plunkett MD , [facility] Address [address] [place] [address] Care Team Providers Care Insights Manager Name Role Phone CESAR JUAREZ Primary Care Provider [phone] CESAR JUAREZ Referring Provider [phone] Assessment Encounter Date Assessment Date Assessment LastModified by Organization Details LastModified Time 05/19/2019 05/19/2019 IMAGING MRI of the right shoulder was reviewed. There is evidence of [id number] arthritic change of the AC joint. There [...] knee No observ ation record ed. [email or web address] [facility] Radiology [address], [address], 05/28/2019 10:45:58 Result Notes None recorded. Problems Name Problem SNOMED Code Status Onset Date Resolution Date Notes Provider Name and Address Organization Details Recorded Time Disorder of bursa of shoulder region 67340221 Active 2018 BRAYDEN Viveros MD 9 11:34:17 Shoulder joint pain 487578804 Active 2018 BRAYDEN Viveros MD 9 11:34:39 Localized, primary osteoarthritis 212544695 Active 2018 BRAYDEN Viveros MD 9 11:34:52 Localized, primary osteoarthritis of the shoulder region 213429444 Active 2018 BRAYDEN Viveros MD 9 10:56:37 Bicipital tenosynovitis 95172848 Active 2018 BRAYDEN Viveros MD 9 10:56:48 Partial thickness rotator cuff tear 419585606 Active 2018 BRAYDEN Viveros MD 9 10:57:03 Articular cartilage disorder of shoulder region 439455846 Active 2018 Darrell Plunkett MD [address], [place], [address], BRAYDEN Plunkett MD 9 18:03:07 Problem Notes None recorded. Procedures Surgical History Date Name Laterality Status Provider Name and Address Organization Details Recorded Time 3 Carpal tunnel surgery completed [facility] BRAYDEN Plunkett MD 03/10/2019 11:40:39 Imaging Results Imaging Date Name Status LastModified by Organiz ation Details LastModified Time 05/26/2019 XR, knee completed [email or web address] [address], [place], [address], 05/28/2019 10:45:58 Procedure Notes None recorded. Medical [...] Updated DateTime 07/14/2019 167.64 cm 35.3 kg/m2 90810.73 g lester Plunkett MD 07/14/2019 11:02:19 Social [...] SNOMED-CT Code Diagnosis ICD10 Code Diagnosis Note [id number] Darrell PLUNKETT M.D. 1 [facility] [employer] [address] 03/10/2019 09:40:59 03/10/2019 11:21:45 Localized, primary osteoarthritis 141461013 M19.011 Shoulder joint pain 2679 42234 M25.511 Disorder o f bursa of shoulder region 54843468 M25.811 [id number] MD DARRELL Ramírez M.D. 1 [employer],[address] [address] 05/19/2019 08:52:47 05/19/2019 09:49:55 Localized, primary osteoarthritis 618456013 M19.011 Shoulder joint pain 2679 26422 M25.511 Bicipital tenosynovitis 17239411 M75.21 Partial th ickness rotator cuff tear 882818882 M75.101 [id number] MD DARRELL Ramírez M.D. 1 [employer] [facility],[address] [address] 05/26/2019 09:01:43 05/26/2019 10:55:03 Localized, primary osteoarthritis of the shoulder region 447817334 M19.011 Shoulder joint pain 2679 94857 M25.511 Bicipital tenosynovitis 56061123 M75.21 Partial th ickness rotator cuff tear 450697912 M75.101 [id number] MD iRa Ramírez [address] [address] 06/09/2019 18:02:24 06/09/2019 18:06:28 Localized, primary osteoarthritis of the shoulder region 596021018 M19.011 Partial th ickness rotator cuff tear 169102625 M75.101 Bicipital tenosynovitis 62117385 M75.21 Disorder o f bursa of shoulder region 24964217 M25.811 Articular cartilage disorder of shoulder region 733346596 M24.111 [id number] Darrell PLUNKETT M.D. 1 [employer],[address] [place] [address] 06/16/2019 10:15:14 06/16/2019 11:32:29 Articular cartilage disorder of shoulder region 649847793 M24.111 Bicipital tenosynovitis 80649636 M75.21 Disorder o f bursa of shoulder region 40216711 M25.811 Localized, primary osteoarthritis 899786648 M19.011 Localized, primary osteoarthritis of the shoulder region 873845179 M19.011 Partial th ickness rotator cuff tear 914623900 M75.101 Shoulder joint pain 2679 78603 M25.511 [id number] Darrell PLUNKETT M.D. [address] [employer] [address] [address] 07/14/2019 09:46:36 07/14/2019 10:59:23 Articular cartilage disorder of shoulder region 658404349 M24.111 Disorder o f bursa of shoulder region 63677763 M25.811 Shoulder joint pain 2679 [address] M25.511 Bicipital tenosynovitis 65823810 M75.21 Partial th ickness rotator cuff tear 474640717 M75.101 Health Concerns Section Related Observation LastModified by Organization Detai ls LastModified Time None Recorded Concern Status LastModified by Organization Details LastModified Time None Recorded Advance Directives Directive None Recorded Payers Encounter Date Sequence Insurance Name Policy Number Policy Donis Covered Member ID Donis Member ID Guarantor Name 05/19/2019 1 [place] [facility] [place] Kristal A Osl [id number] Kristal A Osl 05/26/2019 1 [place] [facility] [place] Kristal A Osl [id number] Kristal A Osl 06/04/2019 1 [place] [facility] [place] Kristal A Osl [id number] Kristal A Osl 06/16/2019 1 [place] [facility] [place] Kristal A Osl [id number] Kristal A Osl 07/14/2019 1 [place] [facility] [place] Kristal A Osl [id number] Kristal A Osl Notes Date Note Type Note Provider Name and Address Organization Details Recorded Time 05/19/2019 text/html Kristal returns f or reassessment of her right shoulder and MRI followup. Darrell Plunkett MD [address], [place], [address], BRAYDEN Plunkett MD 06/08/2019 15:17:47 06/16/2019 text/html [...]
--- OUTSIDE RECORDS SUMMARY | 2024-09-07 16:04 | XMS_ITS | Encounter Summary ---
Author Organization [employer] Address [address] [place] [address] 7t [place] [address] Care Team Providers Care Corporate Officer Name Role Phone Josette Stuart Primary Care Provider [phone] Josette Stuart Primary Care Provider [phone] Leidy Dunham NP Primary Care Provider [phone] Encounter Details Date Type Department Care Team ([facility] Contact Info) Description 04/11/2023 Abstract [facility] MEDICINE [address] [place] [address] Josette Stuart FNP [address] [place], [place] [phone] Social History Tobacco Use Types Packs/Day Years [...] Department Care Team (Late Contact Info) Description 09/22/2024 9:45 AM EST Office Visit [facility] MEDICINE [address] [place] [address] documented as of this encounter Procedures Procedure [...] documented as of this encounter Care Teams Corporate Officer Relationship Specialty Start Date End Date Josette Stuart FNP [address] [place] [address] PCP - General Family Medicine 04/30/22 01/27/24 Josette Stuart FNP [address] [place] [address] PCP - General Family Medicine 01/28/24 03/30/24 Leidy Dunham NP [address] [place] [address] PCP - General Family Medicine 03/31/24 documented as of this encounter
--- OUTSIDE RECORDS SUMMARY | 2024-09-07 16:04 | XMS_ITS | Encounter Summary ---
Author Organization [employer] Address [address] [facility] 7t [place] [address] Care Team Providers Care Chimney Repairer Name Role Phone Josette Stuart Primary Care Provider [phone] Josette Stuart Primary Care Provider [phone] Leidy Dunham NP Primary Care Provider [phone] Reason for Visit * Reason Onset Date Comments dental clearance for surgery 06/17/2023 Encounter Details Date Type Department Care Team (Late st Contact Info) Description 06/17/2023 Telephone [facility]ULT [facility] [address] [place], [place] [phone] Tavon Chong DDS [address] [place], [place] [address] dental clearance for surgery Social History Tobacco [...] - 06/17/2023 10:24 AM EST Yojana from [facility] called requesting the form for surgery clearance be sent back to their office. Upon checking chart, there is nothing scanned in. She stated it was sent in on 05/28 onlast date patient was seen. Patient is coming in today. Advised office to re send the clearance form to [phone] so that provider can fill out and send back to fax number listed on clearance form. Patient is being seen today with ERLINDA garcia DR documented in this encounter Plan of Treatment Upcoming Encounters Date Type Department Care Team (Late st Contact Info) Description 09/22/2024 9:45 AM EST Office Visit [facility] [address] [place] [address] documented as of this encounter Visit Diagnoses Not on filedocumented in this encounter Additional Health Concerns Assessment Noted Time PHQ-9 Depression Total Score: 2 12/08/19 23 1:16 PM EDT documented as of this encounter Care Teams Chimney Repairer Relationship Specialty Start Date End Date Josette Stuart FNP [address] [place] [address] PCP - General Family Medicine 04/30/22 01/27/24 Josette Stuart FNP [address] [place] [address] PCP - General Family Medicine 01/28/24 03/30/24 Leidy Dunham NP [address] [place] [address] PCP - General Family Medicine 03/31/24 documented as of this encounter
--- OUTSIDE RECORDS SUMMARY | 2024-09-07 16:04 | XMS_ITS | Encounter Summary ---
Author Organization [employer] Address [address]t [place] [address] Care Team Providers Care Window Shade Ring Sewer Name Role Phone Josette Stuart Primary Care Provider [phone] Josette Stuart Primary Care Provider [phone] Leidy Dunham NP Primary Care Provider [phone] Encounter Details Date Type Department Care Team ([facility] st Contact Info) Description 05/27/2023 Orders Only [facility] ADULT DENTAL [address] [place] [address] Yoel Tam Social History Tobacco Use Types [...] Description 09/22/2024 9:45 AM EST Office Visit [facility] MEDICINE [address] [place] [address] documented as of this encounter Visit Diagnoses Not on filedocumented in this encounter Additional Health Concerns Assessment Noted Time PHQ-9 Depression Total Score: 2 12/08/19 23 1:16 PM EDT documented as of this encounter Care Teams Window Shade Ring Sewer Relationship Specialty Start Date End Date Josette Stuart FNP [address] [place] [address] PCP - General Family Medicine 04/30/22 01/27/24 Josette Stuart FNP [address] [place] [address] PCP - General Family Medicine 01/28/24 03/30/24 Leidy Dunham NP [address] [place] [address] PCP - General Family Medicine 03/31/24 documented as of this encounter
--- OUTSIDE RECORDS SUMMARY | 2024-09-07 16:04 | XMS_ITS | Encounter Summary ---
Author Organization [employer] Address [address] 7[address] [place] [address] Care Team Providers Care Computer Repair Engineer Name Role Phone Josette Stuart Primary Care Provider [phone] Josette Stuart Primary Care Provider [phone] Leidy Dunham NP Primary Care Provider [phone] Encounter Details Date Type Department Care Team (Late st Contact Info) Description 06/07/2023 Abstract [facility]ULT D[facility]AL [address] [place], [place] [phone] Tavon Chong DDS [address] [place], [place] [phone] Social History Tobacco Use Types Packs/Day Years [...] Description 09/22/2024 9:45 AM EST Office Visit [facility] MEDICINE [address] [place] [address] documented as of this encounter Visit Diagnoses Not on filedocumented in this encounter Additional Health Concerns Assessment Noted Time PHQ-9 Depression Total Score: 2 12/08/19 23 1:16 PM EDT documented as of this encounter Care Teams Computer Repair Engineer Relationship Specialty Start Date End Date Josette Stuart FNP [address] [place] [address] PCP - General Family Medicine 04/30/22 01/27/24 Josette Stuart FNP [address] [place] [address] PCP - General Family Medicine 01/28/24 03/30/24 Leidy Dunham NP [address] [place] [address] PCP - General Family Medicine 03/31/24 documented as of this encounter
--- OUTSIDE RECORDS SUMMARY | 2024-09-07 16:05 | XMS_ITS | Encounter Summary ---
Author Organization [employer] Address [address] [place] [address] 7t [place] [address] Care Team Providers Care Hat Block Maker Name Role Phone Josette Stuart Primary Care Provider [phone] Josette Stuart Primary Care Provider [phone] Leidy Dunham NP Primary Care Provider [phone] Reason for Visit * Reason Onset Date Comments Hospital Follow-up 11/25/2023 Encounter Details Date Type Department Care Team ([facility] st Contact Info) Description 11/25/2023 Telephone [facility] MEDICINE [address] [place], [place] [phone] Josette Stuart FNP [address] [place], [place] [phone] Hospital Follow-up Social History Tobacco Use Types [...] from pt requesting a HDF appt. Hospital: [facility] Date of admission: 11/19/23 Discharge date: 11/22/23 Diagnosed: pancreatitis Please contact at [phone] documented in this encounter Plan of Treatment Upcoming Encounters Date Type Department Care Team (Late st Contact Info) Description 09/22/2024 9:45 AM EST Office Visit [facility] MEDICINE [address] [place] [address] documented as of this encounter Visit Diagnoses Not on filedocumented in this encounter Additional Health Concerns Assessment Noted Time PHQ-9 Depression Total Score: 2 12/08/19 23 1:16 PM EDT documented as of this encounter Care Teams Hat Block Maker Relationship Specialty Start Date End Date Josette Stuart FNP [address] [place] [address] PCP - General Family Medicine 04/30/22 01/27/24 Josette Stuart FNP [address] [place] [address] PCP - General Family Medicine 01/28/24 03/30/24 Leidy Dunham NP [address] [place] [address] PCP - General Family Medicine 03/31/24 documented as of this encounter
--- OUTSIDE RECORDS SUMMARY | 2024-09-07 16:05 | XMS_ITS | Encounter Summary ---
Author Organization [employer] Address [address] [place] [address] 7t [place] [address] Care Team Providers Care Supply Room Clerk Name Role Phone Josette Stuart Primary Care Provider [phone] Josette Stuart Primary Care Provider [phone] Leidy Dunham NP Primary Care Provider [phone] Reason for Visit * Reason Onset Date Comments Medication Question 03/19/2023 Encounter Details Date Type Department Care Team ([facility] st Contact Info) Description 03/19/2023 Telephone [facility] MEDICINE [address] [place], [place] [phone] Josette Stuart FNP [address] [place], [place] [phone] Medication Question Social History Tobacco Use Types [...] clarify and verify. Please contact pt at [phone] documented in this encounter Plan of Treatment Upcoming Encounters Date Type Department Care Team (Late st Contact Info) Description 09/22/2024 9:45 AM EST Office Visit [facility] MEDICINE [address] [place] [address] documented as of this encounter Visit Diagnoses Not on filedocumented in this encounter Additional Health Concerns Assessment Noted Time PHQ-9 Depression Total Score: 2 12/08/19 23 1:16 PM EDT documented as of this encounter Care Teams Supply Room Clerk Relationship Specialty Start Date End Date Josette Stuart FNP [address] [place] [address] PCP - General Family Medicine 04/30/22 01/27/24 Josette Stuart FNP [address] [place] [address] PCP - General Family Medicine 01/28/24 03/30/24 Leidy Dunham NP [address] [place] [address] PCP - General Family Medicine 03/31/24 documented as of this encounter
--- OUTSIDE RECORDS SUMMARY | 2024-09-07 16:05 | XMS_ITS | Encounter Summary ---
Author Organization [employer] Address [address] [place] [address] 7t [place] [address] Care Team Providers Care Box Person Name Role Phone Josette Stuart Primary Care Provider [phone] Josette Stuart Primary Care Provider [phone] Leidy Dunham NP Primary Care Provider [phone] Encounter Details Date Type Department Care Team (Late Contact Info) Description 03/19/2023 Orders Only [facility] MED [facility] PEDS [address] [place] [address] Josette Stuart FNP [address] [place] [address] Social History Tobacco Use Types Packs/Day Years [...] Description 09/22/2024 9:45 AM EST Office Visit [facility] MEDICINE [address] [facility] [place] [address] documented as of this encounter Visit Diagnoses Not on filedocumented in this encounter Additional Health Concerns Assessment Noted Time PHQ-9 Depression Total Score: 2 12/08/19 23 1:16 PM EDT documented as of this encounter Care Teams Box Person Relationship Specialty Start Date End Date Josette Stuart FNP [address] [facility] [place] [address] PCP - General Family Medicine 04/30/22 01/27/24 Josette Stuart FNP [address] [facility] [place] [address] PCP - General Family Medicine 01/28/24 03/30/24 Leidy Dunham NP [address] [place] [address] PCP - General Family Medicine 03/31/24 documented as of this encounter
--- OUTSIDE RECORDS SUMMARY | 2024-09-07 16:05 | XMS_ITS | Encounter Summary ---
Author Organization [employer] Address [address] 7t [place] [address] Care Team Providers Care Statistical Modeler Name Role Phone Leidy Dunham SHAYE Primary Care Provider [phone] Encounter Details Date Type Department Care Team [...] Description 09/22/2024 9:45 AM EST Office Visit [facility] MEDICINE [address] [place] [address] documented as of this encounter Visit Diagnoses Not on filedocumented in this encounter Additional Health Concerns Assessment Noted Time PHQ-9 Depression Total Score: 2 12/08/19 23 1:16 PM EDT documented as of this encounter Care Teams Statistical Modeler Relationship Specialty Start Date End Date Leidy Dunham NP 230 [place] [address] PCP - General Family Medicine 03/31/24 documented as of this encounter
--- OUTSIDE RECORDS SUMMARY | 2024-09-07 16:05 | XMS_ITS | Encounter Summary ---
Author Organization [employer] Address [address] [facility] 7t [place] [address] Care Team Providers Care Health And Safety Consultant Name Role Phone Josette Stuart Primary Care Provider [phone] Josette Stuart Primary Care Provider [phone] Leidy Dunham NP Primary Care Provider [phone] Encounter Details Date Type Department Care Team (Late st Contact Info) Description 02/05/2023 Abstract [facility] MEDICINE [address] [place], [place] [phone] Josette Stuart FNP [address] [place], [place] [phone] Social History Tobacco Use Types Packs/Day Years [...] Description 09/22/2024 9:45 AM EST Office Visit [facility] MEDICINE [address] [facility] [place] [address] documented as of this encounter Visit Diagnoses Not on filedocumented in this encounter Additional Health Concerns Assessment Noted Time PHQ-9 Depression Total Score: 2 12/08/19 23 1:16 PM EDT documented as of this encounter Care Teams Health And Safety Consultant Relationship Specialty Start Date End Date [place] [address] PCP - General Family Medicine 04/30/22 01/27/24 [place] [address] PCP - General Family Medicine 01/28/24 03/30/24 Le[place] [address] PCP - General Family Medicine 03/31/24 documented as of this encounter
--- OUTSIDE RECORDS SUMMARY | 2024-09-07 16:05 | XMS_ITS | Encounter Summary ---
Author Organization [employer] Address [address] 7t [place] [address] Care Team Providers Care Second Facing Baster Name Role Phone RolyLeidy SHAYE Primary Care Provider [phone] Encounter Details Date Type Department Care Team ([facility] st Contact Info) Description 09/03/2024 Telephone [facility] MEDICINE [address] [place], [place] [phone] Lorraine Garcia, CIARA Social History Tobacco Use [...] Telephone Encounter - Lorraine Garcia RN - 09/03/2024 12:28 PM EST Tc to pt in regards to two messaged we received on the portal stating I was in the hospital 08/30 for what appears to be hypokalemia and Sorry I have a follow up with Leidy weller but I have zero energy I can barely move . Tc to pt to due status check post discharge from the hospital on 08/30 for diagnoses of Abdominal pain, Nausea vomiting . CT scan was negative, suspected possible infection, they wanted to admit pt to do blood culture, abx , lactic acid in regards to do low grade temps and wbccount. Pt advised the importance to stay but still left AMA. Pt reports they do not like staying att hospital for too long. Pt denies cp,sob, diarrhea, fever, chills and nausea. Pt reports lack ofappetite but continues to eat foods with high amounts of potassium due to fear of low Potassium levels noted 3.0 under labs. Pt reports they have flex eating potassium foods such as such as oranges, apples, drinking Gatorade and yogurt. Pt denies cp, sob, fever, chills, and diarrhea. Pt reports theywere given Zofran at the ED which was helpful. Pt advised drink a lot of water, eat small frequent meals and follow a BRAT diet. Pt reports to keep scheduled appointment. Pt advised if sx worsen or persist to go back to the ED to be evaluated and also provided wic week and Saturday hours. Pt agreeswith plan and message forwarded to PCP as an FYI. Pt has upcoming appt with PCP on 09/07/24. documented in this encounter Plan of Treatment Upcoming Encounters Date Type Department Care Team (Late st Contact Info) Description 09/22/2024 9:45 AM EST Office Visit [facility] MEDICINE [address] [place] [address] documented as of this encounter Visit Diagnoses Not on filedocumented in this encounter Additional Health Concerns Assessment Noted Time PHQ-9 Depression Total Score: 2 12/08/19 23 1:16 PM EDT documented as of this encounter Care Teams Second Facing Baster Relationship Specialty Start Date End Date Leidy Weller NP [address] [place] [address] PCP - General Family Medicine 03/31/24 documented as of this encounter
--- OUTSIDE RECORDS SUMMARY | 2024-09-07 16:05 | XMS_ITS | Encounter Summary ---
Author Organization [employer] Address [address] [facility] 7t [place] [address] Care Team Providers Care Sports Team Marketing Intern Name Role Phone Roly Leidy SHAYE Primary Care Provider [phone] Reason for Visit * Reason Onset Date Comments Chart Prep 08/27/2024 Encounter Details Date Type Department Care Team ([facility] st Contact Info) Description 08/27/2024 Telephone [facility] MEDICINE [address] [place], [place] [phone] Masha Mcgrath MA Chart Prep Social History [...] Description 09/22/2024 9:45 AM EST Office Visit [facility] MEDICINE [address] [place] [address] documented as of this encounter Visit Diagnoses Not on filedocumented in this encounter Additional Health Concerns Assessment Noted Time PHQ-9 Depression Total Score: 2 12/08/19 23 1:16 PM EDT documented as of this encounter Care Teams Sports Team Marketing Intern Relationship Specialty Start Date End Date Leidy Dunham NP 230 [place] [address] PCP - General Family Medicine 03/31/24 documented as of this encounter
--- OUTSIDE RECORDS SUMMARY | 2024-09-07 16:05 | XMS_ITS | Encounter Summary ---
Author Organization [employer] Address [address] [facility] 7t [place] [address] Care Team Providers Care Assembly And Packing Supervisor Name Role Phone Josette Stuart Primary Care Provider [phone] Josette Stuart Primary Care Provider [phone] Leidy Dunham NP Primary Care Provider Encounter Details Date Type Department Care Team (Late st Contact Info) Description 01/10/2023 Abstract [facility] MEDICINE [address] [place], [place] [phone] Josette Stuart FNP [address] [place], [place] [phone] Social History Tobacco Use Types Packs/Day Years [...] Description 09/22/2024 9:45 AM EST Office Visit [facility] [place] [address] documented as of this encounter Procedures Procedure Name Priority Date/Time Associated Diagnosis Comments COLONOSCOPY Routine 11/23/2021 8:53 AM EDT documented in this encounter Results * Colonoscopy (11/23/2021 8:53 AM EDT) Colonoscopy Normal Normal Narrative Mirtha Everett - 11/23/2021 8:53 AM EDT Recommended 10 year follow up ( [facility] ) us Historical Provider HEALTH MAINTENANCE Edited Result - Final documented in this encounter Visit Diagnoses Not on filedocumented in this encounter Additional Health Concerns Assessment Noted Time PHQ-9 Depression Total Score: 2 12/08/19 23 1:16 PM EDT documented as of this encounter Care Teams Assembly And Packing Supervisor Relationship Specialty Start Date End Date [place] [address] PCP - General Family Medicine 04/30/22 01/27/24 Josette Stuart [place] [address] PCP - General Family Medicine 01/28/24 03/30/24 Leidy [place] [address] PCP - General Family Medicine 03/31/24 documented as of this encounter
--- OUTSIDE RECORDS SUMMARY | 2024-09-07 16:05 | XMS_ITS | Encounter Summary ---
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 Relevant Imaging: Jul 2024: XR lumbar [...] and non-pharm modalities for pain control Other prison (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 Overview Associated Dx: OA bilat hips, s/p L hip replacement Rx: Tramadol 50mg BID PRN Last ACCELERATOR OPERATOR agreement: 02/14/24 Tier II (ACCELERATOR OPERATOR visit every 3 months) Relevant Orders POCT MAU-14 Urine Drug Screen (Completed) Follow up: 1-3 months chronic pain group and PCP prn * My Amado RN - 08/25/2024 9:45 AM EST .ACCELERATOR OPERATOR dining room busser: PDMP reviewed today. Last fill date: 08/11/24 [...] Description 09/22/2024 9:45 AM EST Office Visit [facility] MEDICINE [address] [place] [address] documented as of this encounter Procedures Procedure Name Priority Date/Time Associated Diagnosis Comments POCT MAU-14 URINE DRUG SCREEN Routine 08/25/2024 1:56 PM EST intermodal dispatcher (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 documented in [...] joints on both sides of body- Primary intermodal dispatcher (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 Spondylosis of thoracolumbar spine documented in this encounter Additional Health Concerns Assessment Noted Time PHQ-9 Depression Total Score: 2 12/08/19 23 1:16 PM EDT documented as of this encounter Care Teams Benefits Director Relationship Specialty Start Date End Date Leidy Dunham NP [address] [place] [address] PCP - General Family Medicine 03/31/24 documented as of this encounter
--- OUTSIDE RECORDS SUMMARY | 2024-09-07 16:05 | XMS_ITS | Encounter Summary ---
Author Organization [employer] Address [address] [place] [address] 7t [place] [address] Care Team Providers Care Terrazzo Finisher Name Role Phone Josette Stuart Primary Care Provider [phone] Josette Stuart Primary Care Provider [phone] Leidy Dunham NP Primary Care Provider [phone] Encounter Details Date Type Department Care Team ([facility] Contact Info) Description 01/17/2023 Abstract [facility] MEDICINE [address] [place] [address] Josette Stuart FNP [address] [place], [place] [phone] Social History Tobacco Use Types Packs/Day Years [...] Upcoming Encounters Date Type Department Care Team ([facility] Contact Info) Description 09/22/2024 9:45 AM EST Office Visit [facility] MEDICINE [address] [place] [address] documented as of this encounter Visit Diagnoses Not on filedocumented in this encounter Additional Health Concerns Assessment Noted Time PHQ-9 Depression Total Score: 2 12/08/19 23 1:16 PM EDT documented as of this encounter Care Teams Terrazzo Finisher Relationship Specialty Start Date End Date Josette Stuart FNP [address] [place] [address] PCP - General Family Medicine 04/30/22 01/27/24 Josette Stuart FNP [address] [place] [address] PCP - General Family Medicine 01/28/24 03/30/24 Leidy Dunham NP [address] [place] [address] PCP - General Family Medicine 03/31/24 documented as of this encounter
--- OUTSIDE RECORDS SUMMARY | 2024-09-07 16:05 | XMS_ITS | Encounter Summary ---
Author Organization [employer] Address [address] [place] [address] 7 [place] [address] Care Team Providers Care Poultry Feed Supervisor Name Role Phone Leidy Dunham NP Primary Care Provider [phone] Reason for Referral * Imaging (Routine) - Authorized Specialty Diagnoses / Procedures Referred By Neno paige Referred To Contact Cardiology Diagnoses Hypertension, unspecified type Shortness of breath Procedures Transthoracic Echo (TTE) Complete Leidy Dunham NP [address] [place] [address] Phone: tel: fax: [address] Phone: tel: fax: Referral ID Status Reason Start Date Expiration Date Visits Requested Visits Authorized [id number] Authorized Perform Procedure 09/07/2024 09/07/2025 1 1 * Consultation (Routine) - Authorized Specialty Diagnoses / Procedures Referred By Neno paige Referred To Contact Psychology Diagnoses Attention deficit hyperactivity disorder (ADHD), unspecified ADHD type Leidy Dunham NP [address] [place] [address] Phone: tel: fax: Referral ID Status Reason Start Date Expiration Date Visits Requested Visits Authorized [id number] Authorized Specialty Services Required 09/07/2024 09/07/2025 1 1 * Consultation (Routine) - Pending Review Specialty Diagnoses / Procedures Referred By Neno paige Referred To Contact Gastroenterology Diagnoses Gastroesophageal reflux disease, unspecified whether esophagitis present Gastroesophageal reflux disease with esophagitis without hemorrhage Leidy Dunham NP [address] [place] [address] Phone: tel: fax: Referral ID Status Reason Start Date Expiration Date Visits Requested Visits Authorized [id number] Pending Review Specialty Services Required 09/07/2024 09/07/2025 1 1 * Consultation (Routine) - Pending Review Specialty Diagnoses / Procedures Referred By Neno paige Referred To Contact Cardiology Diagnoses Hypertension, unspecified type Leidy Dunham NP [address] [place] [address] Phone: tel: fax: Referral ID Status Reason Start Date Expiration Date Visits Requested Visits Authorized [id number] Pending Review Specialty Services Required 09/07/2024 09/07/2025 1 1 Encounter Details Date Type Department Care Team (Latest Contact Info) Description 09/07/2024 1:45 PM EST Office Visit [facility] MEDICINE [address] [place], [place] [phone] Leidy Dunham NP [address] [place], [place] [phone] Attention deficit hyperactivity disorder (ADHD), unspecified ADHD type (Primary Dx); Gastroesophageal reflux disease, unspecified whether esophagitis present; Low back pain, non-specific; Gastroesophageal reflux disease with esophagitis without hemorrhage; Hypertension, unspecified type; Hypothyroidism, unspecified type; Shortness of breath; Obesity, Class I, BMI 30-34.9; Acute dilatation of stomach; Postsurgical malabsorption, not elsewhere classified; Toe pain, left Social History Tobacco Use Types Packs/Day Years Used Date Smoking Tobacco: Some Days Cigarettes Started: 1981 Passive Smoke Exposure: Current Smokeless Tobacco: Never Tobacco Cessation:Ready to Q uit: Not Asked; Counseling Given: Not Answered Comments:Pt uses vapes Alcohol [...] AM EDT documented as of this encounter Last Filed Vital Signs Vital Sign Reading Time Taken Comments Blood Pressure 147/95 09/07/2024 1:55 PM EST Pulse 83 09/07/2024 1:55 PM EST Temperature 36.6 ??C (97.9 ??F) 09/07/2024 1:55 PM ES T Respiratory Rate 16 09/07/2024 1:55 PM EST Oxygen Saturation 98% 09/07/2024 1:55 PM EST Inhaled Oxygen Concentration - - Weight 94.1 kg (207 lb 6.4 oz) 09/07/2024 1:55 P M EST Height 167.6 cm (5' 6 ) 09/07/2024 1:55 PM EST Body Mass Index 33.48 09/07/2024 1:55 PM EST documented in this encounter Plan of Treatment Upcoming Encounters Date Type Department Care Team (Late st Contact Info) Description 09/22/2024 9:45 AM EST Office Visit [facility] MEDICINE [address] [place] [address] Scheduled Orders Name Type Priority Associated Diagnoses Orde r Schedule Transthoracic Echo (TTE) Complete Echocardiography Routine Hypertension, unspecified type Shortness of breath Expected: 09/07/2024 (Approximate), Expires: 09/07/2026 Comprehensive Metabolic Panel Lab Routine Shortness of breath Expected: 09/07/2024 (Approximate), Expires: 09/07/2025 CBC auto differential Lab Routine Hypothyroidism, unspecified type Expected: 09/07/2024 (Approximate), Expires: 09/07/2025 Iron And Total Iron Binding Capacity Lab Routine Hypothyroidism, unspecified type Acute dilatation of stomach Expected: 09/07/2024, Expires: 09/07/2025 TSH W/Reflex to FT4 Lab Routine Hypothyroidism, unspecified type Expected: 09/07/2024 (Approximate), Expires: 09/07/2025 Hemoglobin A1c Lab Routine Hypertension, unspecified type Shortness of breath Obesity, Class I, BMI 30-34.9 Postsurgical malabsorption, not elsewhere classified Expected: 09/07/2024 (Approximate), Expires: 09/07/2025 XR Foot 3+ Views Left Imaging Routine Toe pain, left Expected: 09/07/2024, Expires: 09/07/2025 Scheduled Referrals Name Type Priority Associated Diagnoses Orde r Schedule Referral to Cardiology Outpatient Referral Routine Hypertension, unspecified type Expected: 09/07/2024 (Approximate), Expires: 09/07/2025 Referral to Gastroenterology Outpatient Referral Routine Gastroesophageal reflux disease, unspecified whether esophagitis present Gastroesophageal reflux disease with esophagitis without hemorrhage Expected: 09/07/2024 (Approximate), Expires: 09/07/2025 Referral to Neuropsychology Outpatient Referral Routine Attention deficit hyperactivity disorder (ADHD), unspecified ADHD type Expected: 09/07/2024 (Approximate), Expires: 09/07/2025 documented as of this encounter Visit Diagnoses Diagnosis Attention deficit hyperactivity disorder (ADHD), unspecified ADHD type- Primary Gastroesophageal reflux disease, unspecified whether esophagitis present Low back pain, non-specific Gastroesophageal reflux disease with esophagitis without hemorrhage Hypertension, unspecified type Hypothyroidism, unspecified type Shortness of breath Obesity, Class I, BMI 30-34.9 Acute dilatation of stomach Postsurgical malabsorption, not elsewhere classified Toe pain, left Pain in soft tissues of limb documented in this encounter Additional Health Concerns Assessment Noted Time PHQ-9 Depression Total Score: 12 025 2:09 PM EST documented as of this encounter Care Teams Poultry Feed Supervisor Relationship Specialty Start Date End Date Leidy Dunham NP [address] [place] [address] PCP - General Family Medicine 03/31/24 documented as of this encounter
--- OUTSIDE RECORDS SUMMARY | 2024-09-07 16:05 | XMS_ITS | Encounter Summary ---
Author Organization [employer] Address [address] [place] [address] Care Team Providers Care Business Banker Name Role Phone Leidy Dunham SHAYE Primary Care Provider [phone] Encounter Details Date Type Department Care Team (Late st Contact Info) Description 08/30/2024 Orders Only GENERIC EXTERNAL DATA DEPARTMENT Provider, Generic External Data Social History Tobacco Use Types Packs/Day Years [...] Description 09/22/2024 9:45 AM EST Office Visit [facility] [address] [place] [address] documented as of this encounter Procedures Procedure Name Priority Date/Time Associated Diagnosis Comments US ABDOMEN LIMITED Routine 08/30/2024 7: 27 PM EST SARS COV2/INFLUENZA A/B AND RSV RNA QL NAAT Routine 08/30/2024 5:[address] ABDOMEN PELVIS WO CONTRAST Routine 08/30/2024 5:13 PM EST HIGH SENSITIVITY TROPONIN I Routine 08/30/2024 5:06 PM EST URINALYSIS, COMPLETE, WITH REFLEX TO CULTURE Routine 08/30/2024 3:39 PM EST XR CHEST 1 VIEW Routine 08/30/2024 2:51 PM EST HIGH SENSITIVITY TROPONIN I Routine 08/30/2024 2:40 PM EST COMPLETE BLOOD COUNT MAN DIF Routine 08/30/2024 2:40 PM EST LIPASE Routine 08/30/2024 2:40 PM EST HEPATIC FUNCTION PANEL Routine 08/30/2024 2:40 PM EST BASIC METABOLIC PANEL Routine 08/30/2024 2:40 PM EST documented in this encounter Results * US Abdomen Limited (08/30/2024 7:27 PM EST) Anatomical Region Laterality Modality Abdomen Ultrasound 08/30/2024 7:27 PM EST Narrative 08/30/2024 7:28 PM EST ? [facility] ?[address] ?[place] [address] ? Ultrasound Report ? Signed ? Patient: Osl,Kristal A ?MR#: [id number] ? : 1970 ?Acct:[id number] ? Age/Sex: 54 / F ?ADM Date: 08/30/24 ? Loc: HO.ED ? Attending Dr: ? Ordering Physician: Karley Culp DO ?? Date of Service: 08/30/24 ?? Procedure(s): US abdomen limited ?? Accession Number(s): [id number] ? cc: Karley Culp DO; Leidy Dunham WELLNESS EDUCATOR ? CLINICAL HISTORY: gallstones, n v RUQ pain ? US abdomen limited ? Comparison: CT/SR - CT ABDOMEN PELVIS WO IV CON - 08/30/24 15:49 EST ? Findings: ?? The visualized pancreas is normal. ?? The aorta and inferior vena cava are normal caliber. ? The liver is normal in size and echotexture. ?? There is no intrahepatic bile duct dilatation. ?? The common duct is 4 mm in diameter. ?? A 2 cm mobile stone is noted within the gallbladder.. There is no ?? sonographic Sesay sign. ?? The main portal vein is antegrade. ? The right kidney is 9.6 cm in length. ?? No ascites. ? IMPRESSION: ?? Cholelithiasis, otherwise unremarkable. ? This document has been electronically signed by: Danny Robles MD on ?? 08/30/2024 19:27:13 ? Dictated By: ?Danny Robles MD ? Signed By: ?<Electronically signed by Danny Robles MD in OV> ?08/30/241926 ? DD/ 26 ? TD/TT: 08/30/241926 ? Equipment Service Technician: ? Procedure Note Ted Alicia - 08/30/[address] [place] [address] Ultrasound Report Signed Patient: Kristal Storey AMR#: [id number] : 1970Acct:[id number] Age/Sex: 54 / FADM Date: 08/30/24 Loc: HO.ED Attending Dr: Ordering Physician: Karley Culp DO Date of Service: 08/30/24 Procedure(s): US abdomen limited Accession Number(s): [id number] cc: Karley Culp DO; Leidy Dunham WELLNESS EDUCATOR CLINICAL HISTORY: gallstones, n v RUQ pain US abdomen limited Comparison: CT/SR - CT ABDOMEN PELVIS WO IV CON - 08/30/24 15:49 EST Findings: The visualized pancreas is normal. The aorta and inferior vena cava are normal caliber. The liver is normal in size and echotexture. There is no intrahepatic bile duct dilatation. The common duct is 4 mm in diameter. A 2 cm mobile stone is noted within the gallbladder.. There is no sonographic Sesay sign. The main portal vein is antegrade. The right kidney is 9.6 cm in length. No ascites. IMPRESSION: Cholelithiasis, otherwise unremarkable. This document has been electronically signed by: Danny Robles MD on 08/30/2024 19:27:13 Dictated By: Danny Robles MD Signed By: <Electronically signed by Danny Robles MD in OV> 08/30/241926 DD/ 26 TD/TT: 08/30/241926 Equipment Service Technician: [facility] External Provider IMG US PROCEDURES Edited Result - Final * SARS-CoV-2 RNA, Influenza A/B, and RSV RNA, Ql NAAT (08/30/2024 5:47 PM EST) Influenza A PCR NEGATIVE Negative [facility] Influenza B PCR NEGATIVE Negative [facility] Resp Syncy Virus RNA Qual PCR NEGATIVE Negative [facility] SARS COV2 PCR NEGATIVE Negative [facility] Comment:All test results mus t be correlated with clinical findings.Negative results do not preclude SARS-CoV2, influenza Avirus, influenza B virus and/or RSV infectionand should not be used as the sole basis for treatment orother patient management decisions. Negative results must becombined with clinical observations, patient history, andepidemiological information.This test has not been evaluated for monitoring treatment ofinfection.This test has been authorized by the FDA under an EmergencyUse Authorization (EUA) for use by authorized laboratories.Testing performed on the [employer] GeneXpert utilizingreal-time RT-PCR.All SARS CoV2 and positive influenza A/B results arereported to [facility]. 08/30/2024 5:47 PM EST 08/30/2024 5:50 PM EST us Generic External Data Provider LAB MICROBIOLOGY - GENERAL ORDERABLES Final Result [facility] [address] [place] [phone] * CT Abdomen Pelvis w/o Contrast (08/30/2024 5:13 PM EST) Anatomical Region Laterality Modality Body, Pelvis, Abdomen Computed T omography 08/30/2024 5:13 PM EST Narrative 08/30/2024 5:15 PM EST ? [facility] ?[address] ?[place] [address] ? CT Scan Report ? Signed ? Patient: Kristal Storey ?MR#: [id number] ? : 1970 ?Acct:[id number] ? Age/Sex: 54 / F ?ADM Date: 08/30/24 ? Loc: HO.ED ? Attending Dr: ? Ordering Physician: Renzo Bedoya MD ?? Date of Service: 08/30/24 ?? Procedure(s): CT abdomen pelvis wo IV con ?? Accession Number(s): [id number] ? cc: Renzo Bedoya MD; Leidy Dunham WELLNESS EDUCATOR ? Report Number: ?? [id number]: Total DLP = ??844.00 mGy-cm ? CLINICAL HISTORY: abd. pain, hematemesis ? CT abdomen and pelvis without contrast ? Comparison: 11/19/2023 ? Findings: ?? The lung bases are clear. ? There is a gallstone with the gallbladder otherwise unremarkable. ?? Solid organs are within normal limits. No renal stones. ?? No bowel obstruction, pneumoperitoneum, or pneumatosis. ? Pelvic contents unremarkable. Normal appendix. ?? There is fat extending into a ventral abdominal wall hernia. ?? The bones are intact. ? IMPRESSION: ?? No acute findings. ? This document has been electronically signed by: Mack Feliciano MD on ?? 08/30/2024 17:13:06 ? Dictated By: ?Mack Feliciano MD ? Signed By: ?<Electronically signed by Mack Feliciano MD in OV> ?08/30/24 1714 ? DD/ 1713 ? TD/TT: 08/30/241712 ? Equipment Service Technician: ? Procedure Note Donotbaljinderter, Image - 08/30/[address] [place] [address] [address] Scan Report Signed Patient: Kristal Storey AMR#: [id number] : 1970Acct:[id number] Age/Sex: 54 / FADM Date: 08/30/24 Loc: HO.ED Attending Dr: Ordering Physician: Renzo Bedoya MD Date of Service: 08/30/24 Procedure(s): CT abdomen pelvis wo IV con Accession Number(s): [id number] cc: Renzo Bedoya MD; Leidy Dunham WELLNESS EDUCATOR Report Number: [id number]: Total DLP = 844.00 mGy-cm CLINICAL HISTORY: abd. pain, hematemesis CT abdomen and pelvis without contrast Comparison: 11/19/2023 Findings: The lung bases are clear. There is a gallstone with the gallbladder otherwise unremarkable. Solid organs are within normal limits. No renal stones. No bowel obstruction, pneumoperitoneum, or pneumatosis. Pelvic contents unremarkable. Normal appendix. There is fat extending into a ventral abdominal wall hernia. The bones are intact. IMPRESSION: No acute findings. This document has been electronically signed by: Mack Feliciano MD on 08/30/2024 17:13:06 Dictated By: Mack Feliciano MD Signed By: <Electronically signed by Mack Feliciano MD in OV> 08/30/241713 DD/ 12 TD/TT: 08/30/241712 Equipment Service Technician: [facility] External Provider IMG CT PROCEDURES Edited Result - Final * (ABNORMAL) High Sensitivity Troponin I (08/30/2024 5:06 PM EST) TROPONIN I HIGH SENSITIVITY 42.2(H) <3.5 - 17.0 ng/L [facility] Comment:The [place] high sens itivity Troponin-I results should beused in conjunction with other diagnostic information suchas ECG, clinical observations and information, and patientsymptoms to aid in the diagnosis of MS. 08/30/2024 5:06 PM EST 08/30/2024 5:09 PM EST Generic External Data Provider LAB BLOOD ORDERAB LES Final Result [facility] [address] [place] [phone] * (ABNORMAL) Urinalysis, Complete, with Reflex to Culture (08/30/2024 3:39 PM EST) Color Urine Yellow [facility] Appearance Urine Clear [facility] PH 6.0 5.0 - 9.0 [facility] Glucose Urine UA Negative Negative mg/dL [facility] Urine Blood Negative Negative [facility] Specific [place] - Urine 1.020 1.005 - 1.025 [facility] Urine Protein 300 (3+)(A) Neg-Trace mg/dL [facility] Urine Ketones 40 Negative mg/dL [facility] Nitrite Urine Negative Negative [facility] Leukocyte Esterase Urine Negative Negative [facility] RBC Urine 0-2 0 - 2 /HPF [facility] Urine WBC 0-5 0 - 5 /HPF [facility] Urine Squamous Epithelial Cell 0-2 0 - 2 /HPF [facility] Urine Bacteria None Seen None Seen [facility] Hyaline Casts, Urine 3-5 0 - 2 /LPF [facility] 08/30/2024 3:39 PM EST 08/30/2024 3:41 PM EST Narrative [facility] - 08/30/2024 4:29 PM EST [id number], Clean Catch us Generic External Data Provider LAB URINE ORDERAB LES Final Result [facility] [address] [place] [address] [phone] * XR Chest 1 View (08/30/2024 2:51 PM EST) Anatomical Region Laterality Modality Chest Radiographic Anna ging 08/30/2024 2:51 PM EST Narrative 08/30/2024 2:52 PM EST ? [facility] ?[address] ?[place] [address] ?XRay Report ? Signed ? Patient: Osl,Kristal A ?MR#: [id number] ? : 1970 ?Acct:[id number] ? Age/Sex: 54 / F ?ADM Date: 08/30/24 ? Loc: HO.ED ? Attending Dr: ? Ordering Physician: Renzo Bedoya MD ?? Date of Service: 08/30/24 ?? Procedure(s): XR chest 1V ?? Accession Number(s): [id number] ? cc: Renzo Bedoya MD; Leidy Dunham NP ? CLINICAL HISTORY: Chest pain with hematemesis ? 1 view chest x-ray ? Comparison: CT/SR - CT CHEST WO [facility] - 12/26/21 11:10 EDT ? Findings: ?? The lungs are clear. ?? Heart size is normal. ?? No acute fracture. ? IMPRESSION: ?? 1. No acute findings. ? This document has been electronically signed by: Smith Costa MD on ?? 08/30/2024 14:51:33 ? Dictated By: ?Smith Costa MD ? Signed By: ?<Electronically signed by Smith Costa MD in OV> ? 08/30/24 1452 ? DD/ 1451 ? TD/TT: 08/30/24 1451 ? Equipment Service Technician: ? Procedure Note Ted Alicia - 08/30/[address] [address] XRay Report Signed Patient: Kristal Storey AMR#: [id number] : 1970Acct:[id number] Age/Sex: 54 / FADM Date: 08/30/24 Loc: HO.ED Attending Dr: Ordering Physician: Renzo Bedoya MD Date of Service: 08/30/24 Procedure(s): XR chest 1V Accession Number(s): [id number] cc: Renzo Bedoya MD; Leidy Dunham NP CLINICAL HISTORY: Chest pain with hematemesis 1 view chest x-ray Comparison: CT/SR - CT CHEST WO CON - 12/26/21 11:10 EDT Findings: The lungs are clear. Heart size is normal. No acute fracture. IMPRESSION: 1. No acute findings. This document has been electronically signed by: Smith Costa MD on 08/30/2024 14:51:33 Dictated By: Smith Costa MD Signed By: <Electronically signed by Smith Costa MD in OV> 08/30/24 1452 DD/ 1451 TD/TT: 08/30/24 1451 Equipment Service Technician: [facility] External Provider IMG XR PROCEDURES Edited Result - Final * (ABNORMAL) High Sensitivity Troponin I (08/30/2024 2:40 PM EST) TROPONIN I HIGH SENSITIVITY 50.0(H) <3.5 - 17.0 ng/L [facility] Comment:The [place] high sens itivity Troponin-I results should beused in conjunction with other diagnostic information suchas ECG, clinical observations and information, and patientsymptoms to aid in the diagnosis of MS. 08/30/2024 2:40 PM EST 08/30/2024 2:50 PM EST Generic External Data Provider LAB BLOOD ORDERAB LES Final Result [facility] [address] [place] [phone] * (ABNORMAL) Complete Blood Count Manual Diff (08/30/2024 2:40 PM EST) White Blood Count 19.0(H) 4.8 - 10.8 X10*3/uL [facility] Red Blood Count 5.52(H) 4.20 - 5.50 X10*6/uL [facility] Hemoglobin 14.9 12.0 - 16.0 g/dl [facility] Hematocrit 41.9 37.0 - 47.0 % [facility] Mean Corpuscular Volume 75.9(L) 80.0 - 98.0 fL [facility] Mean Corpuscular Hemoglobin 27.0 27.0 - 33.0 pg [facility] Mean Corpuscular HGB Conc 35.6(H) 31.0 - 35.0 g/dl [facility] Red Cell Distribution Width 15.2 11.0 - 16.0 % [facility] Platelet Count 443(H) 160 - 400 X10*3/uL [facility] Mean Platelet Volume 10.3 9.4 - 12.3 fL [facility] NRBC Pct Auto 0.0 0.0 - 0.2 /100WBC [facility] NRBC Abs Auto 0.000 0.0 - 0.012 X10*3/uL [facility] Neutrophils % Manual 84(H) 45 - 73 % [facility] Band Neutrophils Percent 1(L) 3 - 5 % [facility] Lymphocytes Percent Manual 5(L) 20 - 40 % [facility] Monocytes Percent Manual 10 2 - 11 % [facility] NEUTROPHILS ABSOLUTE MANUAL 16.2(H) 2.0 - 8.3 X10*3/uL [facility] LYMPHOCYTES ABSOLUTE MANUAL 1.0(L) 1.2 - 4.9 X10*3/uL [facility] MONOCYTES ABSOLUTE MANUAL 1.9(H) 0.1 - 1.2 X10*3/uL [facility] Platelet Estimate SLIGHTLY INCREASED NORMAL [facility] Platelet Morphology Comment NORMAL [facility] RBC Morphology NOTED [facility] Ovalocytes 1+ (5-14) /OIF [facility] 08/30/2024 2:40 PM EST 08/30/2024 2:50 PM EST us Generic External Data Provider LAB BLOOD ORDERAB LES Final Result Performing Organization Address City/[facility]/ZIP Co de Phone Number [facility] [address] [place] [phone] * Lipase (08/30/2024 2:40 PM EST) Lipase 19 8 - 78 U/L [facility] 08/30/2024 2:40 PM EST 08/30/2024 2:50 PM EST Generic External Data Provider LAB BLOOD ORDERAB LES Final Result Performing Organization Address City/[facility]/ZIP Co de Phone Number [facility] [address] [place] [phone] * (ABNORMAL) Basic Metabolic Panel (08/30/2024 2:40 PM EST) Sodium 135 135 - 145 mmol/L [facility] Potassium 3.0(L) 3.3 - 5.1 mmol/L [facility] Chloride 99 96 - 108 mmol/L [facility] Carbon Dioxide 19(L) 22 - 29 mmol/L [facility] Anion Gap 20 12 - 20 [facility] Urea Nitrogen (BUN) 24(H) 9 - 16 mg/dL [facility] Creatinine, Serum 1.30 0.5 - 1.4 mg/dL [facility] Creatinine Clr Calc Pharmacy 54.1 [facility] Comment:Provided height and weight: 167.64 cm,88.6 kg.eGFR (calculated from the MDRD study equation) and eCrCl(calculated from the Cockcroft-Gault equation) are based ondifferent parameters and may not yield comparable results.If eCrCl result is absurd, please check patient'sheight/weight. Estimated Glomerular Filt Rate 42 [facility] Comment:Chronic Kidney Disea se: Estimated GFR < 60 mL/min/1.91k4Ppoccp Kidney Disease: Estimated GFR < 15 mL/min/1.73m2 Glucose 132(H) 60 - 115 mg/dL [facility] Calcium 9.8 8.4 - 10.2 mg/dL [facility] 08/30/2024 2:40 PM EST 08/30/2024 2:50 PM EST Generic External Data Provider LAB BLOOD ORDERAB LES Final Result Performing Organization Address [facility] Co de Phone Number [facility] [address] [place] [phone] * (ABNORMAL) Hepatic Function Panel (08/30/2024 2:40 PM EST) Bilirubin, Total 1.1(H) 0.0 - 1.0 mg/dL [facility] Bilirubin, Direct 0.3 0.0 - 0.5 mg/dL [facility] Aspartate Amino Transferase 28 5 - 31 U/L [facility] Alanine Aminotransferase 11 0 - 31 U/L [facility] Total Protein 8.6(H) 6.5 - 8.0 g/dL [facility] Albumin Level 4.8 3.5 - 5.0 g/dL [facility] Alkaline Phosphatase 87 39 - 117 U/L [facility] 08/30/2024 2:40 PM EST 08/30/2024 2:50 PM EST Generic External Data Provider LAB BLOOD ORDERAB LES Final Result Performing Organization Address [facility] Co de Phone Number [facility] [address] [place] [phone] documented in this encounter Visit Diagnoses Not on filedocumented in this encounter Additional Health Concerns Assessment Noted Time PHQ-9 Depression Total Score: 2 12/08/19 23 1:16 PM EDT documented as of this encounter Care Teams Business Banker Relationship Specialty Start Date End Date Leidy Dunham NP [address] [place] [address] PCP - General Family Medicine 03/31/24 documented as of this encounter
--- OUTSIDE RECORDS SUMMARY | 2024-09-07 16:05 | XMS_ITS | Encounter Summary ---
Author Organization [employer] Address [address] [facility] [address] [place] [address] Care Team Providers Care Officer Captain Name Role Phone Josette Stuart Primary Care Provider [phone] Josette Stuart Primary Care Provider [phone] Leidy Dunham NP Primary Care Provider [phone] Encounter Details Date Type Department Care Team (Late st Contact Info) Description 12/26/2023 Orders Only [facility] [address] [place], [place] [phone] Maryann Stokes MD [address] [place], [place] [phone] Social History Tobacco Use Types Packs/Day Years [...] 9:45 AM EST Office Visit [facility] [address] [place] [address] documented as of this encounter Visit Diagnoses Not on filedocumented in this encounter Additional Health Concerns Assessment Noted Time PHQ-9 Depression Total Score: 2 12/08/19 23 1:16 PM EDT documented as of this encounter Care Teams Officer Captain Relationship Specialty Start Date End Date Josette Stuart FNP [address] [place] [address] PCP - General Family Medicine 04/30/22 01/27/24 Josette Sturat FNP [address] [place] [address] PCP - General Family Medicine 01/28/24 03/30/24 Leidy Dunham NP [address] [place] [address] PCP - General Family Medicine 03/31/24 documented as of this encounter
--- OUTSIDE RECORDS SUMMARY | 2024-09-07 16:06 | XMS_ITS | Encounter Summary ---
Author Organization [employer] Address [address] [place] [address] 7[address] [place] [address] Care Team Providers Care Hatch Supervisor Name Role Phone Josette Stuart Primary Care Provider [phone] Josette Stuart Primary Care Provider [phone] Leidy Dunham NP Primary Care Provider [phone] Reason for Visit * Reason Onset Date Comments PT1 03/05/2023 Encounter Details Date Type Department Care Team ([facility] st Contact Info) Description 03/05/2023 Telephone [facility] [address] [place], [place] [phone] Josette Stuart FNP [address] [place], [place] [phone] PT1 Social History Tobacco Use Types Packs/Day [...] Date: 03/22/23 Time: 8:15 am Visits: Address: [address], [place] [address] Facility: [facility] [place] Wheel Chair: n/a Psychiatric Nurse Needed: no documented in this encounter Plan of Treatment Upcoming Encounters Date Type Department Care Team (Late st Contact Info) Description 09/22/2024 9:45 AM EST Office Visit [facility] [address] [place] [address] documented as of this encounter Visit Diagnoses Not on filedocumented in this encounter Additional Health Concerns Assessment Noted Time PHQ-9 Depression Total Score: 2 12/08/19 23 1:16 PM EDT documented as of this encounter Care Teams Hatch Supervisor Relationship Specialty Start Date End Date Josette Stuart FNP [address] [place] [address] PCP - General Family Medicine 04/30/22 01/27/24 Josette Stuart FNP [address] [place] [address] PCP - General Family Medicine 01/28/24 03/30/24 Leidy Dunham NP [address] [place] [address] PCP - General Family Medicine 03/31/24 documented as of this encounter
--- OUTSIDE RECORDS SUMMARY | 2024-09-07 16:06 | XMS_ITS | Clinical Summary ---
Author Organization [employer] Address [address] [place] [address] [address] [place] [address] Care Team Providers Care Top Waddy Name Role Phone Roly Leidy SHAYE Primary Care Provider [phone] Allergies Active Allergy Reactions Criticality Noted Date Comments Penicillin G 08/01/2023 Penicillins Rash,Dizziness,Hives,Itching,Swelling Low 01/06/2020 Medications ferrous sulfate (FeroSul) 325 (65 Fe) MG tabletIndicati ons:Anemia, unspecified type TAKE 1 TABLET BY MOUTH DAILY 90 tablet 3 023 Active docusate sodium (Colace) 100 MG capsule Take 1 capsule by mouth every 12 (twelve) hours. 021 Active hydrOXYzine pamoate (Vistaril) 25 MG capsuleIndicat ions:Anxiety Take 1 capsule by mouth at bedtime as needed 30 capsule 5 023 Active valACYclovir (Valtrex) 500 MG tabletIndicati ons:Genital herpes simplex, unspecified site take 1 tablet by oral route 2 times a day for 3 days when you have an outbreak 6 tablet 2 023 Active simvastatin (Zocor) 5 MG tablet TAKE 1 TABLET BY MOUTH AT BEDTIME 90 tablet 1 023 Active cetirizine (ZyrTEC) 10 MG tablet Take 1 tablet (10 mg) by mouth in the morning. 90 tablet 3 024 2024 Active gabapentin (Neurontin) 300 MG capsuleIndicat ions:Low back pain, non-specific Take 1 capsule (300 mg) by mouth See administration instructions. Take 300mg by mouth, every mornining and every midday. 60 capsule 06/13/2 024 Active gabapentin (Neurontin) 400 MG capsuleIndicat ions:Low back pain, non-specific Take 1 capsule (400 mg) by mouth at bedtime. 30 capsule Active Diclofenac Sodium 1 % gel Apply 2 g topically if needed in the morning and at bedtime (pain). 150 g 6 Active DULoxetine (Cymbalta) [address] capsule Active prazosin (Minipress) 5 MG capsule Active omeprazole (PriLOSEC) [address] capsuleIndicat ions:Gastroeso phageal reflux disease, unspecified whether esophagitis present TAKE 1 CAPSULE BY MOUTH TWICE A DAY AFTER MEALS 180 capsule Active lisinopril-hyd roCHLOROthiazi de 20-12.5 MG tablet Take 1 tablet by mouth Once per day. 30 tablet 11 025 2025 Active levothyroxine (Synthroid) 175 MCG tablet Take 1 tablet (175 mcg) by mouth before breakfast. 30 tablet 025 2025 Active Carafate 1 GM/10ML suspensionIndi cations:Gastro esophageal reflux disease with esophagitis without hemorrhage SHAKE LIQUID AND TAKE 10 ML BY MOUTH TWICE DAILY 600 mL 5 Active amLODIPine (Norvasc) 10 MG tabletIndicati ons:Hypertensi on, unspecified type TAKE 1 TABLET BY MOUTH EVERY DAY 90 tablet 1 025 Active levothyroxine (Synthroid) 175 MCG tablet Take 1 tablet (175 mcg) by mouth before breakfast. 30 tablet 023 2024 Discontinued(R eorder (will not trigger notification to Pharmacy)) lisinopril-hyd roCHLOROthiazi de 20-12.5 MG tablet Take 1 tablet by mouth in the morning. 30 tablet 023 2024 Discontinued(R eorder (will not trigger notification to Pharmacy)) amLODIPine (Norvasc) 10 MG tabletIndicati ons:Hypertensi on, unspecified type TAKE 1 TABLET BY MOUTH EVERY DAY 90 tablet 1 023 2024 Discontinued(R eorder (will not trigger notification to Pharmacy)) Carafate 1 GM/10ML suspensionIndi cations:Gastro esophageal reflux disease with esophagitis without hemorrhage SHAKE LIQUID AND TAKE 10 ML BY MOUTH TWICE DAILY 600 mL 5 024 2024 Discontinued(R eorder (will not trigger notification to Pharmacy)) omeprazole (PriLOSEC) [address] capsuleIndicat ions:Gastroeso phageal reflux disease, unspecified whether esophagitis present TAKE 1 CAPSULE BY MOUTH TWICE A DAY AFTER MEALS 180 capsule 024 2024 Discontinued(R eorder (will not trigger notification to Pharmacy)) traMADol (Ultram) 50 MG tabletIndicati ons:Low back pain, non-specific Take 1 tablet (50 mg) by mouth every 12 (twelve) hours if needed for severe pain for up to 14 days. 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 04/29 Overview (07/09/2024): Associated Dx: OA bilat hips, s/p L hip replacement Rx: Tramadol 50mg BID PRN Last GLACIOLOGIST agreement: 02/14/24 Tier II (GLACIOLOGIST visit every 3 months) History of abnormal cervical Pap smear Overview (02/06/2024): LEEP completed 2023 Assessment & Plan (02/06/2024 9:56 AM EDT): In care with EMPLOYEE RELATIONS REPRESENTATIVE Hiatal hernia 02/06/2024 Assessment & Plan (02/06/2024 9:52 AM EDT): Repair, reports small hiatal hernia reoccurrence, followed by GI, daily PPI controls symptoms Low acid diet reviewed Encounter for wellness examination in adult 08/2023 Overview (02/06/2024): Breast CA: Mammogram completed 10/21/23 birads 1 Cervical CA: In care with alvarado EMPLOYEE RELATIONS REPRESENTATIVE, cone leep last week Colon CA: EGD/ [...] (01/28/2024 3:34 PM EDT): In care with [facility] has psychiatrist Increased urinary frequency 08/01/2023 [...] (02/06/2024 9:55 AM EDT): 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 Hyperlipidemia 02/05/2023 Assessment & Plan (02/06/2024 9:57 [...] weeks Continue amlodipine 10 mg, and lisinopril/hydrochlorothiazide /.5 Osteoarthritis involving mul tiple joints on both [...] Encounters Date Type Department Care Team Description 09/07/2024 1:45 PM EST Office Visit [facility] [address] [place] [address] Leidy Dunham NP Attention deficit hyperactivity disorder (ADHD), unspecified ADHD type (Primary Dx); Gastroesophageal reflux disease, unspecified whether esophagitis present; Low back pain, non-specific; Gastroesophageal reflux disease with esophagitis without hemorrhage; Hypertension, unspecified type; Hypothyroidism, unspecified type; Shortness of breath; Obesity, Class I, BMI 30-34.9; Acute dilatation of stomach; Postsurgical malabsorption, not elsewhere classified; Toe pain, left 09/07/2024 Travel 09/03/2024 Telephone [facility] [address] [place] [phone] Lorraine Garcia, CIARA 08/30/2024 Orders Only GENERIC EXTERNAL DATA DEPARTMENT Provider, Generic External Data 08/27/[address] [address] Masha Mcgrath MA Chart Prep 08/25/2024 9:45 AM EST Office Visit [facility] [address] [place] [phone] Phalen, Aria, ORTHOPEDIC RN Osteoarthritis involving multiple joints on both sides of body (Primary Dx); 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 driver (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; Spondylosis of thoracolumbar spine 08/25/2024 Travel 08/13/2024 Orders Only [facility] External Provider, [facility] 08/10/2024 Refill [facility] [address] [place] [phone] Lediy Dunham NP Low back pain, non-specific (Primary Dx) 08/04/2024 Telephone [facility] [address] [place] [phone] Lorraine Garcia, CIARA 07/23/2024 9:40 AM EST Office Visit [facility] [address] [place] [phone] Mariluz Ritter MD Epigastric pain (Primary Dx); Gastroesophageal reflux disease, unspecified whether esophagitis present 07/07/2024 11:00 AM EST Office Visit [facility] [address] [place] [phone] Phalen, Aria, ORTHOPEDIC RN Osteoarthritis involving multiple joints on both sides of body (Primary Dx); USP (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 07/07/2024 Travel 07/02/[address] [address] Mario Lion MA august06/16/[address] [address] Mario Lion MA appt attempt no answer 06/15/[address] [address] Mario Lion MA pre op faxed over 06/15/2024 Telephone [facility] [address] [place] [address] Mario Lion MA lab results/ still having symptoms 06/12/2024 1:15 PM EST Office Visit [facility] [address] [place] [address] Leidy Dunham, SHAYE Oliguria (Primary Dx); Hypothyroidism, unspecified type; Pre-op evaluation 06/12/2024 Orders Only [facility] [address] [place] [address] Leidy Dunham, SHAYE 06/12/2024 Travel 06/10/2024 Telephone [facility] [address] [place], [place] [phone] Masha Mcgrath MA Chart Prep from Last [...] Mass Index 33.48 09/07/2024 1:55 PM EST Plan of Treatment Upcoming Encounters Date Type Department Care Team (Late st Contact Info) Description 09/22/2024 9:45 AM EST Office Visit [facility] [address] [place] [phone] Health Maintenance Due Date Last Done Comments CT Colonography 1968 FIT DNA/Cologuard 1968 FIT 1968 FOBT 1970 Sigmoidoscopy 1968 Hepatitis C Screening 1986 Pneumococcal Vaccine: 50+ Years (1 of 2 - PCV) 1987 Zoster Vaccines (1 of 2) 2018 DTaP/Tdap/Td Vaccines (1 - Tdap) 04/28/2022 04/27/2022, 02/10/2017 Cervical Cancer Screening 02/12/2023 HPV/Cotest 02/12/2023 06/04/2022 Pap Smear 02/12/2023 06/04/2022 Dental Oral Exam 11/21/2023 05/21/2023 Dental Prophylaxis 11/21/2023 05/21/2023 COVID-19 Vaccine ( - season) 2024 02/28/2022, 09/14/2021, 12/30/2020 Influenza Vaccine (#1) 2024 , 04/26/2021, 05/18/2019, Additional history exists Dental X-Ray: Bitewings 05/22/2024 05/21/2023 SDOH Screening 01/27/2025 01/28/2024 Depression Monitoring (PHQ-9) 03/07/2025 09/07/2024, 09/07/2024 Alcohol/Substance Use Screening 06/12/2025 06/12/2024 Depression Screening 09/07/2025 09/07/2024, 09/07/19 Tobacco Screening 09/07/2025 09/07/2024 Mammogram 10/20/2025 10/21/2023, 04/29, 05/16/2022 Dental X-Ray: [...] EST LIPASE Routine 08/30/2024 2:40 PM EST BASIC METABOLIC PANEL Routine 08/30/2024 2:40 PM EST HEPATIC FUNCTION PANEL Routine 2:40 PM EST POCT MAU-14 URINE DRUG SCREEN Routine 08/25/2024 1:56 PM EST stud driver (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 XR LUMBAR SPINE 2-3 VIEWS Routine 08/13/2024 3:40 PM EST XR THORACIC SPINE 3 VIEWS Routine 08/13/2024 3:40 PM EST POCT HEMOGLOBIN Routine 07/23/2024 10:21 AM EST Gastroesophageal reflux disease, unspecified whether esophagitis present Epigastric pain POCT MAU-14 URINE DRUG SCREEN Routine 07/07/2024 1:58 PM EST stud driver (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 [facility] ?[address] ?[place] [address] ? Ultrasound Report ? Signed ? Patient: Osl,Kristal A ?MR#: [id number] ? : 1970 ?Acct:[id number] ? Age/Sex: 54 / F ?ADM Date: 08/30/24 ? Loc: HO.ED ? Attending Dr: ? Ordering Physician: Karley Culp DO ?? Date of Service: 08/30/24 ?? Procedure(s): US abdomen limited ?? Accession Number(s): [id number] ? cc: Karley Culp DO; Leidy Dunham KNITTING MACHINE OPERATOR ? CLINICAL HISTORY: gallstones, n v RUQ [...] ? DD/ 26 ? TD/TT: 08/30/241926 ? Liquid Yeast Supervisor: ? Procedure Note Donotuseinterpreter, Image - 08/30/[address] [address] Ultrasound Report Signed Patient: Kristal Storey#: [id number] : 1970Acct:[id number] Age/Sex: 54 / FADM Date: 08/30/24 Loc: HO.ED Attending Dr: Ordering Physician: Karley Culp DO Date of Service: 08/30/24 Procedure(s): US abdomen limited Accession Number(s): [id number] cc: Karley Culp DO; Leidy Dunham NP CLINICAL HISTORY: gallstones, n v RUQ pain [...] in OV> 08/30/241926 DD/ 26 TD/TT: 08/30/241926 Liquid Yeast Supervisor: us [facility] External Provider IMG US PROCEDURES Edited Result - Final * SARS-CoV-2 RNA, Influenza A/B, and RSV RNA, Ql NAAT (08/30/2024 5:47 PM EST) Influenza A PCR NEGATIVE Negative [facility] Influenza B PCR NEGATIVE Negative [facility] Resp Syncy Virus RNA Qual PCR NEGATIVE Negative [facility] SARS COV2 PCR NEGATIVE Negative [facility] Comment:All test results mus t [...] use by authorized laboratories.Testing performed on the [employer] GeneXpert utilizingreal-time RT-PCR.All SARS CoV2 and positive influenza A/B results arereported to [facility]. 08/30/2024 5:47 PM EST 08/30/2024 5:50 PM EST us Generic External Data Provider LAB MICROBIOLOGY - GENERAL ORDERABLES Final Result [facility] [address] [place] [phone] * CT Abdomen Pelvis w/o Contrast (08/30/2024 5:13 PM EST) Anatomical Region Laterality Modality Body, Pelvis, Abdomen Computed T omography 08/30/2024 5:13 PM EST Narrative 08/30/2024 5:15 PM EST ? [facility] ?[address] ?[place] [address] ? CT Scan Report ? Signed ? Patient: Osl,Kristal A ?MR#: [id number] ? : 1970 ?Acct:[id number] ? Age/Sex: 54 / F ?ADM Date: 02/02/25 ? Loc: HO.ED ? Attending Dr: ? Ordering Physician: Renzo Bedoya MD ?? Date of Service: 08/30/24 ?? Procedure(s): CT abdomen pelvis wo IV con ?? Accession Number(s): [id number] ? cc: Renzo Bedoya MD; Leidy Dunham KNITTING MACHINE OPERATOR ? Report Number: ?? [id number]: Total DLP = ??844.00 mGy-cm ? CLINICAL [...] ?08/30/24 1714 ? DD/ 1713 ? TD/TT: 08/30/24 1713 ? Liquid Yeast Supervisor: ? Procedure Note Maral, Image - 08/30/[address] [place] [address] [address] Scan Report Signed Patient: Kristal Storey AMR#: [id number] : 1970Acct:[id number] Age/Sex: 54 / FADM Date: 08/30/24 Loc: HO.ED Attending Dr: Ordering Physician: Renzo Bedoya MD Date of Service: 08/30/24 Procedure(s): CT abdomen pelvis wo IV con Accession Number(s): [id number] cc: Renzo Bedoya MD; Leidy Dunham NP Report Number: [id number]: Total DLP = 844.00 mGy-cm CLINICAL HISTORY: [...] in OV> 08/30/241713 DD/ 12 TD/TT: 08/30/241712 Liquid Yeast Supervisor: [facility] External Provider IMG CT PROCEDURES Edited Result - Final * (ABNORMAL) High Sensitivity Troponin I (08/30/2024 5:06 PM EST) Only the most recent of2 resultswithin the time period is included. TROPONIN I HIGH SENSITIVITY 42.2(H) <3.5 - 17.0 ng/L [facility] Comment:The [place] high sens itivity Troponin-I results should beused in conjunction with other diagnostic information suchas ECG, clinical observations and information, and patientsymptoms to aid in the diagnosis of NV. 08/30/2024 5:06 PM EST 08/30/2024 5:09 PM EST Generic External Data Provider LAB BLOOD ORDERAB LES Final Result [facility] [address] [place] [phone] * (ABNORMAL) Urinalysis, Complete, with Reflex to Culture (08/30/2024 3:39 PM EST) Only the most recent of2 resultswithin the time period is included. Color Urine Yellow [facility] Appearance Urine Clear [facility] PH 6.0 5.0 - 9.0 [facility] Glucose Urine UA Negative Negative mg/dL [facility] Urine Blood Negative Negative [facility] Specific [place] - Urine 1.020 1.005 - 1.025 [facility] Urine Protein 300 (3+)(A) Neg-Trace mg/dL [facility] Urine Ketones 40 Negative mg/dL [facility] Nitrite Urine Negative Negative [facility] Leukocyte Esterase Urine Negative Negative [facility] RBC Urine 0-2 0 - 2 /HPF [facility] Urine WBC 0-5 0 - 5 /HPF [facility] Urine Squamous Epithelial Cell 0-2 0 - 2 /HPF [facility] Urine Bacteria None Seen None Seen [facility] Hyaline Casts, Urine 3-5 0 - 2 /LPF [facility] 08/30/2024 3:39 PM EST 08/30/2024 3:41 PM EST Narrative [facility] - 08/30/2024 4:29 PM EST [id number], Clean Catch us Generic External Data Provider LAB URINE ORDERAB LES Final Result Performing Organization Address City/State/[facility] Co de Phone Number [facility] [address] [place] [address] [phone] * XR Chest 1 View (08/30/2024 2:51 PM EST) Anatomical Region Laterality Modality Chest Radiographic Anna ging 08/30/2024 2:51 PM EST Narrative 08/30/2024 2:52 PM EST ? [facility] ?[address] ?[place] [address] ?XRay Report ? Signed ? Patient: Osl,Kristal A ?MR#: [id number] ? : 1970 ?Acct:[id number] ? Age/Sex: 54 / F ?ADM Date: 08/30/24 ? Loc: HO.ED ? Attending : ? Ordering Physician: Renzo Bedoya MD ?? Date of Service: 08/30/24 ?? Procedure(s): XR chest 1V ?? Accession Number(s): [id number] ? cc: Renzo Bedoya MD; Leidy Dunham KNITTING MACHINE OPERATOR ? CLINICAL HISTORY: Chest pain with hematemesis ? 1 view chest x-ray ? Comparison: CT/SR - CT CHEST WO CON - 12/26/21 11:10 EDT ? Findings: ?? The lungs are clear. ?? Heart size is normal. ?? No acute fracture. ? IMPRESSION: ?? 1. No acute findings. ? This document has been electronically signed by: Smith Costa MD on ?? 08/30/2024 14:51:33 ? Dictated By: ?Smith Costa MD ? Signed By: ?<Electronically signed by Smith Costa MD in OV> ? 08/30/241451 ? DD/ 50 ? TD/TT: 08/30/24 1451 ? Liquid Yeast Supervisor: ? Procedure Note Donotuseinterpreter, Image - 08/30/2024 [place] [address] XRay Report Signed Patient: Kristal Storey AMR#: [id number] : 1970Acct:[id number] Age/Sex: 54 / FADM Date: 08/30/24 Loc: HO.ED Attending Dr: Ordering Physician: Renzo Bedoya MD Date of Service: 08/30/24 Procedure(s): XR chest 1V Accession Number(s): [id number] cc: Renzo Bedoya MD; Leidy Dunham NP [...] 08/30/24 1452 DD/ 1451 TD/TT: 08/30/24 1451 Liquid Yeast Supervisor: us [facility] External Provider IMG XR PROCEDURES Edited Result - Final * (ABNORMAL) Complete Blood Count Manual Diff (08/30/2024 2:40 PM EST) White Blood Count 19.0(H) 4.8 - 10.8 X10*3/uL [facility] Red Blood Count 5.52(H) 4.20 - 5.50 X10*6/uL [facility] Hemoglobin 14.9 12.0 - 16.0 g/dl [facility] Hematocrit 41.9 37.0 - 47.0 % [facility] Mean Corpuscular Volume 75.9(L) 80.0 - 98.0 fL [facility] Mean Corpuscular Hemoglobin 27.0 27.0 - 33.0 pg [facility] Mean Corpuscular HGB Conc 35.6(H) 31.0 - 35.0 g/dl [facility] Red Cell Distribution Width 15.2 11.0 - 16.0 % [facility] Platelet Count 443(H) 160 - 400 X10*3/uL [facility] Mean Platelet Volume 10.3 9.4 - 12.3 fL [facility] NRBC Pct Auto 0.0 0.0 - 0.2 /100WBC [facility] NRBC Abs Auto 0.000 0.0 - 0.012 X10*3/uL [facility] Neutrophils % Manual 84(H) 45 - 73 % [facility] Band Neutrophils Percent 1(L) 3 - 5 % [facility] Lymphocytes Percent Manual 5(L) 20 - 40 % [facility] Monocytes Percent Manual 10 2 - 11 % [facility] NEUTROPHILS ABSOLUTE MANUAL 16.2(H) 2.0 - 8.3 X10*3/uL [facility] LYMPHOCYTES ABSOLUTE MANUAL 1.0(L) 1.2 - 4.9 X10*3/uL [facility] MONOCYTES ABSOLUTE MANUAL 1.9(H) 0.1 - 1.2 X10*3/uL [facility] Platelet Estimate SLIGHTLY INCREASED NORMAL [facility] Platelet Morphology Comment NORMAL [facility] RBC Morphology NOTED [facility] Ovalocytes 1+ (5-14) /OIF [facility] 08/30/2024 2:40 PM EST 08/30/2024 2:50 PM EST us Generic External Data Provider LAB BLOOD ORDERAB LES Final Result [facility] [address] [place] [address] [phone] * Lipase (08/30/2024 2:40 PM EST) Pathologist [facility] Lipase 19 8 - 78 U/L [facility] 08/30/2024 2:40 PM EST 08/30/2024 2:50 PM EST Generic External Data Provider LAB BLOOD ORDERAB LES Final Result Performing Organization Address [facility]/ZIP Co de Phone Number [facility] [address] [place] [phone] * (ABNORMAL) Hepatic Function Panel (08/30/2024 2:40 PM EST) [facility] Bilirubin, Total 1.1(H) 0.0 - 1.0 mg/dL [facility] Bilirubin, Direct 0.3 0.0 - 0.5 mg/dL [facility] Aspartate Amino Transferase 28 5 - 31 U/L [facility] Alanine Aminotransferase 11 0 - 31 U/L [facility] Total Protein 8.6(H) 6.5 - 8.0 g/dL [facility] Albumin Level 4.8 3.5 - 5.0 g/dL [facility] Alkaline Phosphatase 87 39 - 117 U/L [facility] 08/30/2024 2:40 PM EST 08/30/2024 2:50 PM EST Generic External Data Provider LAB BLOOD ORDERAB LES Final Result Performing Organization Address [facility]/ZIP Co de Phone Number [facility] [address] [place] [phone] * (ABNORMAL) Basic Metabolic Panel (08/30/2024 2:40 PM EST) Pathologist [facility] Sodium 135 135 - 145 mmol/L [facility] Potassium 3.0(L) 3.3 - 5.1 mmol/L [facility] Chloride 99 96 - 108 mmol/L [facility] Carbon Dioxide 19(L) 22 - 29 mmol/L [facility] Anion Gap 20 12 - 20 [facility] Urea Nitrogen (BUN) 24(H) 9 - 16 mg/dL [facility] Creatinine, Serum 1.30 0.5 - 1.4 mg/dL [facility] Creatinine Clr Calc Pharmacy 54.1 [facility] Comment:Provided height and weight: 167.64 cm,88.6 kg.eGFR (calculated from the MDRD study equation) and eCrCl(calculated from the Cockcroft-Gault equation) are based ondifferent parameters and may not yield comparable results.If eCrCl result is absurd, please check patient'sheight/weight. Estimated Glomerular Filt Rate 42 [facility] Comment:Chronic Kidney Disea se: Estimated GFR < 60 mL/min/1.03g9Udiokg Kidney Disease: Estimated GFR < 15 mL/min/1.73m2 Glucose 132(H) 60 - 115 mg/dL [facility] Calcium 9.8 8.4 - 10.2 mg/dL [facility] 08/30/2024 2:40 PM EST 08/30/2024 2:50 PM EST us Generic External Data Provider LAB BLOOD ORDERAB LES Final Result [facility] [address] [place] [address] [phone] * POCT MAU-14 Urine Drug Screen (08/25/2024 1:56 PM EST) Only the most recent of2 resultswithin the time period is included. THC Positive Urine Urine specimen obtained by clean catch procedure / Unknown 08/25/2024 1:56 PM EST us Leidy Dunham NP POINT OF CARE TEST ENTER/EDIT OR DERABLES Final Result * XR Lumbar Spine 2-3 Views (08/13/2024 3:40 PM EST) Anatomical Region Laterality Modality Spine, L-spine Radiographic Anna ging 08/13/2024 3:40 PM EST Narrative 08/13/2024 4:19 PM EST ? [facility] ?[address] ?[place] [address] ?XRay Report ? Signed ? Patient: Osl,Kristal A ?MR#: [id number] ? : 1970 ?Acct:[id number] ? Age/Sex: 54 / F ?ADM Date: 08/13/24 ? Loc: HO.ED ? Attending Dr: ? Ordering Physician: Lauren Liriano ?? Date of Service: 08/13/24 ?? Procedure(s): XR lumbar spine 2-3V ?? Accession Number(s): [id number] ? cc: Leidy Dunham KNITTING MACHINE OPERATOR; Lauren Liriano ? EXAMINATION: ?? XR LUMBOSACRAL [...] DD/ 1540 ? TD/TT: 08/13/24 1600 ? Liquid Yeast Supervisor: ? Procedure Note Donotuseinterpreter, Image - 08/13/[address] [address] XRay Report Signed Patient: Kristal Storey AMR#: [id number] : 1970Acct:[id number] Age/Sex: 54 / FADM Date: 08/13/24 Loc: HO.ED Attending Dr: Ordering Physician: Lauren Liriano Date of Service: 08/13/24 Procedure(s): XR lumbar spine 2-3V Accession Number(s): [id number] cc: Leidy Dunham KNITTING MACHINE OPERATOR; Lauren Liriano EXAMINATION: XR LUMBOSACRAL SPINE CLINICAL [...] by: Parminder Moralez MD 08/13/2024 04:17 PM [facility] Dictated By: Parminder Moralez MD Signed By: <Electronically signed by Parminder Moralez MD in OV> 08/13/24 1617 DD/ 1540 TD/TT: 08/13/24 1600 Liquid Yeast Supervisor: us [facility] External Provider IMG XR PROCEDURES Final Result * XR Thoracic Spine 3 Views (08/13/2024 3:40 PM EST) Anatomical Region Laterality Modality Spine, T-spine Radiographic Anna ging 08/13/2024 3:40 PM EST Narrative 08/13/2024 4:16 PM EST ? [facility] ?[address] ?[place] [address] ?XRay Report ? Signed ? Patient: Osl,Kristal A ?MR#: [id number] ? : 1970 ?Acct:[id number] ? Age/Sex: 54 / F ?ADM Date: 08/13/24 ? Loc: HO.ED ? Attending Dr: ? Ordering Physician: Lauren Liriano ?? Date of Service: 08/13/24 ?? Procedure(s): XR thoracic spine 3V ?? Accession Number(s): [id number] ? cc: Leidy Dunham KNITTING MACHINE OPERATOR; Lauren Liriano ? EXAMINATION: ?? XR THORACIC [...] DD/ 1540 ? TD/TT: 08/13/24 1600 ? Liquid Yeast Supervisor: ? Procedure Note Donotuseinterpreter, Image - 08/13/[address] [address] XRay Report Signed Patient: Kristal Storey AMR#: [id number] : 1970Acct:[id number] Age/Sex: 54 / FADM Date: 08/13/24 Loc: HO.ED Attending Dr: Ordering Physician: Lauren Liriano Date of Service: 08/13/24 Procedure(s): XR thoracic spine 3V Accession Number(s): [id number] cc: Leidy Dunham KNITTING MACHINE OPERATOR; Lauren Liriano EXAMINATION: XR THORACIC SPINE CLINICAL [...] 08/13/24 1613 DD/ 1540 TD/TT: 08/13/24 1600 Liquid Yeast Supervisor: [facility] External Provider IMG XR PROCEDURES Final Result * POCT Hemoglobin (07/23/2024 10:21 AM EST) Hemoglobin 14.1 12.0 - 15.0 Blood 07/23/2024 10:2 1 AM EST Mariluz Ritter MD POINT OF CARE TEST ENTER/EDIT ORDERABLES Final Result * Culture, Urine, Routine (06/12/2024 7:16 PM EST) Urine Urine specimen obtained by clean catch procedure / Unknown 06/12/2024 7:16 PM EST 06/12/2024 7:16 PM EST Comment:UACC Narrative [facility] - 06/14/2024 7:46 AM EST Urine Culture Report Result Urine Culture 50,000 to 100,000 cfu/ml Urine Culture Mixed bacterial lucian characteristic of Urine Culture urogenital contamination. Specimen Source: Urine clean catch Leidy Dunham NP LAB MICROBIOLOGY - GENERAL ORDER DENNIS Final Result [facility] [address] [place] [phone] * (ABNORMAL) POCT Urinalysis (06/12/2024 2:33 [...] Media Lot # [id number] Lot# Expiration Date [id number] Urine 06/12/2024 2:33 PM EST Leidy Dunham NP POINT OF CARE TEST ENTER/EDIT OR DERABLES Final Result * (ABNORMAL) Lipid Panel, Standard (11/19/2023 4:25 AM EDT) Triglycerides 141 <150 mg/dL [facility] Comment:Desirable Triglyceri de: less than 150 mg/dLBorderline High Triglyceride 150-199 mg/dLHigh Triglyceride: 200-499 mg/dLVery High Triglyceride: greater than or equal to 5OO mg/dL Cholesterol 199 <200 mg/dL [facility] Comment:Desirable Cholestero l: less than 200 mg/dLBorderline High Cholesterol: 200-239 mg/dLHigh Cholesterol: greater than 239 mg/dL LDL Cholesterol Calculated 106(H) <100 mg/dL [facility] Comment:Desirable LDL: less than 100 mg/dLNear Optimal/Above Optimal LDL: 110- 129 mg/dLBorderline High LDL: 130-159 mg/dLHigh LDL: 160-189 mg/dLVery High LDL: greater than or equal to 190 mg/dL HDL Cholesterol 65 >40 mg/dL [facility] Comment:Desirable HDL: great er than 40 mg/dL Note: This HDL assay may give artificially low results in patients with liver disease. 11/19/2023 4:25 AM EDT 11/19/2023 4:31 AM EDT us Generic External Data Provider LAB BLOOD ORDERAB LES Final Result [facility] [address] [place] [phone] * BI Mammogram Screening Tomosynthesis Bilateral (10/21/2023 12:25 PM EDT) Anatomical Region Laterality Modality Breast Bilateral Mammography 10/21/2023 12:2 5 PM EDT Narrative 10/28/2023 4:19 PM EDT ? [facility] [place] ? [address] ?[place] [address] ? Mammography Report ? Signed ? Patient: Osl,Kristal A ?MR#: [id number] ? : 1970 ?Acct:[id number] ? Age/Sex: 53 / F ?ADM Date: 03/25/24 ? Loc: HO.MAMMO ? Attending Dr: Josette Stuart KNITTING MACHINE OPERATOR ? Ordering Physician: Josette Stuart KNITTING MACHINE OPERATOR ?Results: 1Negativ ?? e ? Date of Service: 10/21/23 ?Follow Up: 1 Year From Orig ?? inal Mammogram ? Procedure(s): MM tomosynthesis screening BI ?? Accession Number(s): [id number] ? cc: Josette Stuart KNITTING MACHINE OPERATOR ? EXAMINATION: ?? MM SCREENING DIGITAL BREAST [...] 1615 ? DD/ 1225 ? TD/TT: ? Liquid Yeast Supervisor: ? Procedure Note Donotuseinterpreter, Image - [facility] [address] [place] [address] Mammography Report Signed Patient: Kristal Storey AMR#: [id number] : 1970Acct:[id number] Age/Sex: 53 / FADM Date: 10/21/23 Loc: HO.MAMMO Attending Dr: Josette Stuart KNITTING MACHINE OPERATOR Ordering Physician: Josette Stuart NPResults: 1Negativ e Date of Service: 10/21/23Follow Up: 1 Year From Orig inal Mammogram Procedure(s): MM tomosynthesis screening BI Accession Number(s): [id number] cc: Josette Stuart NP EXAMINATION: MM SCREENING DIGITAL BREAST TOMOSYNTHESIS, BILATERAL [...] in OV> 10/28/23 1615 DD/ 1225 TD/TT: Liquid Yeast Supervisor: Josette Stuart ORTHOPEDIC RN IMG BI PROCEDURES Final Result * (ABNORMAL) [...] with computer assisted technology. CONVERTED LEGACY LABS Cork Molder : SEE COMMENT CONVERTED LEGACY LABS Comment: BLC,CT(ASCP) CT screening location: [address] ??[address] General Categorization: EPITHELIAL CELL ABNORMALITY(A) CONVERTED LEGACY LABS HPV nRNA E6/E7 Detected(A) Not Detected [facility]GAC[facility] Comment: Methodology: Central Sterilization Technician-Mediated Amplification This assay detects E6/E7 viral messenger RNA (mRNA) from 14 high-risk HPV types (16,18,31,33,35,39,45,51,52,56,58,59,66,68). ? Cervical sources are required for HPV testing. If a vaginal source from a patient who has had a total hysterectomy with removal of cervix was ?? submitted, please contact the testing laboratory for alternative testing options. ?? For additional information, please refer to http://education.[employer]/faq/CDF651v0 (This link if provided for information/ educational purposes only.) Interpretation/R esult: Atypical Squamous Cells of Undetermined Significance (ASC-US)(A) CONVERTED LEGACY LABS LMP: NONE GIVEN CONVERTED LEGACY LABS PATHOLOGIST: SEE COMMENT CONVE RTED LEGACY LABS Comment: Africa Shaikh MD, PhD, Board Certified in Anatomic and Clinical Pathology (electronic signature) Consulting Pathologist [facility] [address] [place] [address] Prev. BX: NONE GIVEN CONVERTED LEGACY LABS Prev. PAP: NONE GIVEN CONVERTE D LEGACY LABS SOURCE: None given CONVERTED LEGACY LABS Statement Of Adequacy: SATISFACTORY FOR EVALUATION CONVERTED LEGACY LABS 06/04/2022 11:1 0 AM EST Mark Wheeler MD LAB PATHOLOGY ORDERABLES Fin al Result Performing Organization Address City/[facility]/ZIP Co de Phone Number CONVERTED LEGACY LABS * Colonoscopy (11/23/2021 8:53 AM EDT) Colonoscopy Normal Normal Narrative Mirtha Everett - 11/23/2021 8:53 AM EDT Recommended 10 year follow up ( [facility] ) Bette Provider HEALTH MAINTENANCE Edited Result - Final * HIV AB/AG (09/14/2020 8:55 AM EST) HIV AB/AG Nonreactive Nonreactive [facility] Comment: HIV-1 p24 Ag and/or [...] detection of this assay. ?? [employer] Informatics Specialist HIV Ag/Ab Combo assay result and supplemental assay results should be interpreted in conjunction with the patient's clinical presentation, history and other laboratory results. ??If the results are inconsistent with clinical evidence, additional testing is suggested to confirm the result. 09/14/2020 8:55 AM EST us Mark Wheeler MD HISTORICAL/NON ORDERABLE LAB S Final Result Performing Organization Address City/[facility]/ZIP Co de Phone Number [facility] [address] from Last 3 Months or Most Recently Relevant to Health Maintenance Insurance [facility] STANDARD .[address] [place] DENT[facility] MEDICAID STAND ADULT Care Teams Top Waddy Relationship Specialty Start Date End Date Leidy Dunham NP [address] [place] [address] PCP - General Family Medicine 03/31/24
[2024-09-07 16:12] LABS: Hematocrit 34.6 % (37.0-47.0); Hemoglobin 11.6 g/dl (12.0-16.0); Mean Corpuscular HGB Conc 33.5 g/dl (31.0-35.0); Mean Corpuscular Hemoglobin 27.5 pg (27.0-33.0); Mean Platelet Volume 11.3 fL (9.4-12.3); Platelet Count 349 X10*3/uL (160-400); Red Blood Count 4.22 X10*6/uL (4.20-5.50); Red Cell Distribution Width 15.4 % (11.0-16.0); White Blood Count 11.5 X10*3/uL (4.8-10.8)
[2024-09-07 16:29] LABS: Alanine Aminotransferase 11 U/L (0-31); Albumin Level 3.7 g/dL (3.5-5.0); Anion Gap 9 (12-20); Aspartate Amino Transferase 20 U/L (5-31); Bilirubin Total 0.2 mg/dL (0.0-1.0); Blood Urea Nitrogen 8 mg/dL (9-16); Calcium 8.7 mg/dL (8.4-10.2); Carbon Dioxide 28 mmol/L (22-29); Chloride 107 mmol/L (96-108); Estimated Glomerular Filt Rate 59; Glucose Random 86 mg/dL (60-115); Iron 40 mcg/dL (30-160); Percent Iron Saturation 15 % (15-50); Potassium 3.3 mmol/L (3.3-5.1); Sodium 141 mmol/L (135-145); Total Iron Binding Capacity 259 mcg/dL (228-428); Total Protein 6.5 g/dL (6.5-8.0); Unsaturated Iron Binding 219 ug/dL
[2024-09-07 16:35] LABS: Estimated Average Glucose 108 mg/dL; Hemoglobin A1C 109.4911 umol/L; Hemoglobin A1c % 5.4 % (<6.0); Total Hemoglobin (HGBA1C) 3091.4395 umol/L
[2024-09-07 16:44] LABS: Alkaline Phosphatase 81 U/L (39-117)
[2024-09-07 16:54] LABS: TSH reflex Free T4 > 100.00 uIU/mL (0.32-4.0)
[2024-09-07 17:11] LABS: Band Neutrophils Percent 3 % (3-5); Lymphocytes Absolute Manual 3.7 X10*3/uL (1.2-4.9); Lymphocytes Percent Manual 32 % (20-40); Monocytes Absolute Manual 1.4 X10*3/uL (0.1-1.2); Monocytes Percent Manual 12 % (2-11); Myelocytes Absolute 0.1 X10*/uL; Myelocytes Percent 1 %; Neutrophils Absolute Manual 6.3 X10*3/uL (2.0-8.3); Neutrophils Percent Manual 52 % (45-73)
[2024-09-07 17:23] LABS: Platelet Estimate NORMAL (NORMAL); Platelet Morphology Comment NORMAL; RBC Morphology NORMAL
[2024-09-07 17:47] LABS: Free T4 (Free Thyroxine) 0.86 ng/dL (0.71-1.85)
[2024-09-08 04:40] LABS: ~HepC Num1 0.05 S/CO (0.00-0.79); ~Hepatitis C Antibody Nonreactive (Nonreactive)
== END 2024-09-07 14:50 | disposition home or self-care (01) ==
LOC: HO.HHCL 14:49
PROVIDERS: Visit Provider Nurse Practitioner Family
DX: K31.0 Acute dilatation of stomach (principal); Z00.00 Encounter for general adult medical examination without abnormal findings; E03.9 Hypothyroidism, unspecified; I10 Essential (primary) hypertension; R06.02 Shortness of breath; E66.811 Obesity, class 1; K91.2 Postsurgical malabsorption, not elsewhere classified; R34 Anuria and oliguria
CPT/HCPCS: 36415; 80053; 83036; 83540; 84439; 84443; 85007; 85027; 86803

== ENCOUNTER → 2024-10-02 13:48 | Outpatient (REF) | payer MEDICARE, MEDICAID, SELFPAY ==
--- NOTE | 2024-10-02 13:52 | CA_ITS ---
Transthoracic Echocardiogram Patient (Last, First, Middle): Kristal Storey A Gender: Female Date of : 1970 Age: 54 Procedure Date: 10/02/2024 Procedure Type: Transthoracic Echocardiogram Location: OP Height: 167.64 cm Weight: 90.72 kg BSA: 2.00 m2 Heart Rate: 74 bpm BP: 134 / 80 mmHg Fabric Lay Out Worker: ARYA Referring MD: Tee Pina MD Cotton Seed Culler: Tee Pina MD Symptoms: R79.89 - Other specified abnormal findings of blood chemistry Study Quality: Adequate ECG Rhythm: Sinus Conclusions: - Essentially normal study Findings Left Ventricle Normal left ventricular size, thickness, and systolic function. The visually estimated ejection fraction is >70%. Spectral Doppler is indicative of a normal filling pattern. Right Ventricle Normal right ventricular cavity size and systolic function. Atria The left atrium is likely dilated. There is no evidence of interatrial shunt. The right atrium is normal in size. Aortic Valve The aortic valve structure and function is likely normal. There is no aortic valve stenosis. There is no aortic valve regurgitation. Mitral Valve Normal mitral valve structure and function. There is trace mitral valve regurgitation. There is no mitral valve stenosis. Pulmonic Valve The pulmonic valve was not well visualized. Tricuspid Valve Likely normal tricuspid valve structure and function. There is trace tricuspid valve regurgitation. The right ventricular systolic pressure is normal. The right ventricular systolic pressure is 25 mmHg. Normal right atrial pressure. There is no evidence of pulmonary hypertension. Great Vessels All visible segments of the aorta are normal in size. The pulmonary artery was not well visualized. There is no dilatation of the ascending aorta measuring 3.10 cm. Venous The inferior vena cava is normal in size and collapses greater than 50% with inspiration. Pericardium/Pleural There is no evidence of pericardial effusion. Prior Study Comparison No prior study available for comparison. Measurements 2D Linear Measurements IVSd: 0.74 0.6-0.9/0.6-1.0 cm LVIDd: 4.37 3.9-5.3/4.2-5.9 cm LVIDd Index: 2.19 2.4-3.2/2.2-3.1 cm/m2 LVIDs: 3.03 2.0-3.6 cm LVPWd: 0.76 0.7-1.1 cm LA Diam: 4.00 2.7-3.8/3.0-4.0 cm LAIDs Index: 2.00 1.5-2.3 cm/m2 LV Mass: 123.24 67-162/88-224 g LV Mass Index: 61.62 43-95/49-115 g/m2 LVOT Diam: 2.20 3.0+(-)1.3 cm 2D Systolic Function EF 4C: 72.20 >55% EF 2C: 73.00 >55% EF BiP: 72.30 >55% Mitral Valve MV Pk E: 0.99 MV PK A: 0.86 MV Decel Time: 222.00 E/A: 1.10 E'Lateral: 8.05 E'Medial: 8.38 E/E' Med: 11.80 E/E' Lat: 12.20 PHT: 65.00 MVA PHT: 3.38 Decel Noble: 4.43 Aortic Valve AoV Pk Richard: 1.76 AoV Pk Grad: 12.00 MIKE: 3.06 LVOT LVOT Pk Richard: 1.51 LVOT Mn Richard: 0.98 LVOT VTI: 0.28 LVOT Pk Grad: 9.00 LVOT Mn Grad: 5.00 LVOT Diam: 2.20 LVOT Area: 3.80 Diastolic Function MV Pk E: 0.99 MV Pk A: 0.86 E/A: 1.10 E'Medial: 8.38 E/E' Med: 11.80 E' Laterial: 8.05 E/E' Lat: 12.20 Right Ventricle TAPSE (mm): 21.70 TVS' Richard: 16.00 Tricuspid Valve TR Pk Richard: 2.37 TR Pk Grad: 22.00 RA Press: 3.00 RVSP: 25.00 Great Vessels Aorta Sinus of Valsalva: 3.20 2.0-3.5 cm Ao Asc: 3.10 2.1-3.4 cm Ao Arch: 3.00 Pulmonary Veins Pulm Vein S/D 2.00 Pulmonary Valve PV Pk Richard: 1.10 Peak PV Grad: 5.00 Updated in Other Vendor System with Status of Final Tee Pina MD electronically signed on 10/03/2024 1:00:08 PM with status of Final
--- OUTSIDE RECORDS SUMMARY | 2024-10-02 15:28 | XMS_ITS | Encounter Summary ---
Author Organization [employer] Address [address] [place] [address] Care Team Providers Care Plunket Nurse Name Role Phone Josette Stuart Primary Care Provider [phone] Josette Stuart Primary Care Provider [phone] Leidy Dunham NP Primary Care Provider [phone] Encounter Details Date Type Department Care Team (Late st Contact Info) Description 05/07/2023 Abstract [facility] MED[facility] [address] [place] [address] Mirtha Everett Social History Tobacco Use Types [...] Care Team (Late st Contact Info) Description 10/20/2024 9:45 AM EDT Office Visit [facility] [address] [place] [address] documented as of this encounter Procedures Procedure [...] documented as of this encounter Care Teams Plunket Nurse Relationship Specialty Start Date End Date Josette Stuart FNP [address] [place] [address] PCP - General Family Medicine 04/30/22 01/27/24 Josette Stuart FNP [address] [place] [address] PCP - General Family Medicine 01/28/24 03/30/24 Leidy Dunham NP [address] [place] [address] PCP - General Family Medicine 03/31/24 documented as of this encounter
--- OUTSIDE RECORDS SUMMARY | 2024-10-02 15:28 | XMS_ITS | Encounter Summary ---
Author Organization [employer] Address [address] [place] [address] Care Team Providers Care Straw Hat Washer Operator Name Role Phone Josette Stuart Primary Care Provider [phone] Josette Stuart Primary Care Provider [phone] Leidy Dunham NP Primary Care Provider [phone] Reason for Visit * Reason Onset Date Comments dental clearance for surgery 06/17/2023 Encounter Details Date Type Department Care Team ([facility] st Contact Info) Description 06/17/2023 Telephone [facility] ADULT DENTAL [address] [place], [place] [phone] Tavon Chong DDS [address] [place], [place] [phone] dental clearance for surgery Social History Tobacco [...] - 06/17/2023 10:24 AM EST Yojana from [facility] called requesting the form for surgery clearance be sent back to their office. Upon checking chart, there is nothing scanned in. She stated it was sent in on 05/28 onlast date patient was seen. Patient is coming in today. Advised office to re send the clearance form to [phone] so that provider can fill out and send back to fax number listed on clearance form. Patient is being seen today with ERLINDA student documented in this encounter Plan of Treatment Upcoming Encounters Date Type Department Care Team (Late st Contact Info) Description 10/20/2024 9:45 AM EDT Office Visit [facility] [address] [place] [address] documented as of this encounter Visit Diagnoses Not on filedocumented in this encounter Additional Health Concerns Assessment Noted Time PHQ-9 Depression Total Score: 2 12/08/19 23 1:16 PM EDT documented as of this encounter Care Teams Straw Hat Washer Operator Relationship Specialty Start Date End Date Josette Stuart FNP [address] [place] [address] PCP - General Family Medicine 04/30/22 01/27/24 Josette Stuart FNP [address] [place] [address] PCP - General Family Medicine 01/28/24 03/30/24 Leidy Dunham NP [address] [place] [address] PCP - General Family Medicine 03/31/24 documented as of this encounter
--- OUTSIDE RECORDS SUMMARY | 2024-10-02 15:28 | XMS_ITS | Encounter Summary ---
Author Organization [employer] Address [address] [place] [address] Care Team Providers Care Research And Development Director Name Role Phone Josette Stuart Primary Care Provider [phone] Josette Stuart Primary Care Provider [phone] Leidy Dunham NP Primary Care Provider [phone] Encounter Details Date Type Department Care Team (Late st Contact Info) Description 09/06/2023 Orders Only [facility] MED & PEDS [address] [place] [address] Josette Stuart FNP [address] [facility] [place], [place] [phone] Hypothyroidism, unspecified type (Primary Dx) Social History [...] Description 10/20/2024 9:45 AM EDT Office Visit [facility] MEDICINE [address] [place] [phone] documented as of this encounter Procedures Procedure Name Priority Date/Time Associated Diagnosis Comments TSH W/REFLEX TO FT4 Routine 10/16/2023 4 :02 PM EDT Hypothyroidism, unspecified type documented in this encounter Results * (ABNORMAL) TSH with Reflex to Free T4 (10/16/2023 4:02 PM EDT) TSH reflex Free T4 0.15(L) 0.32 - 4.0 uIU/mL [facility] Blood 10/16/2023 4:02 PM EDT 10/16/2023 6:04 PM EDT us Josette HARRELL LAB BLOOD ORDERABLES Final Resu lt [facility] [address] [place] [phone] [phone] documented in this encounter Visit Diagnoses Diagnosis Hypothyroidism, unspecified type- Primary documented in this encounter Additional Health Concerns Assessment Noted Time PHQ-9 Depression Total Score: 2 12/08/19 23 1:16 PM EDT documented as of this encounter Care Teams Research And Development Director Relationship Specialty Start Date End Date Josette Stuart FNP [address] [place] [address] PCP - General Family Medicine 04/30/22 01/27/24 Josette Stuart FNP [address] [place] [address] PCP - General Family Medicine 01/28/24 03/30/24 Leidy Dunham NP [address] [place] [address] PCP - General Family Medicine 03/31/24 documented as of this encounter
--- OUTSIDE RECORDS SUMMARY | 2024-10-02 15:28 | XMS_ITS | Encounter Summary ---
Author Organization [employer] Address [address] [place] [address] Care Team Providers Care Dope Worker Name Role Phone Josette Stuart Primary Care Provider [phone] Josette Stuart Primary Care Provider [phone] Leidy Dunham NP Primary Care Provider [phone] Encounter Details Date Type Department Care Team (Late st Contact Info) Description 06/07/2023 Abstract [facility] ADULT DENTAL [address] [place], [place] [phone] Tavon Chong DDS [address] [place], [place] [phone] Social History Tobacco Use Types Packs/Day Years [...] Description 10/20/2024 9:45 AM EDT Office Visit [facility] MEDICINE [address] [place] [address] documented as of this encounter Visit Diagnoses Not on filedocumented in this encounter Additional Health Concerns Assessment Noted Time PHQ-9 Depression Total Score: 2 12/08/19 23 1:16 PM EDT documented as of this encounter Care Teams Dope Worker Relationship Specialty Start Date End Date Josette Stuart FNP [address] [place] [address] PCP - General Family Medicine 04/30/22 01/27/24 Josette Stuart FNP [address] [place] [address] PCP - General Family Medicine 01/28/24 03/30/24 Leidy Dunham NP [address] [place] [address] PCP - General Family Medicine 03/31/24 documented as of this encounter
--- OUTSIDE RECORDS SUMMARY | 2024-10-02 15:28 | XMS_ITS | Encounter Summary ---
Author Organization [employer] Address [address] [place] [address] Care Team Providers Care Bleach Liquor Maker Name Role Phone Josette Stuart Primary Care Provider [phone] Josette Stuart Primary Care Provider [phone] Leidy Dunham NP Primary Care Provider [phone] Encounter Details Date Type Department Care Team ([facility] st Contact Info) Description 05/27/2023 Orders Only [facility] ADULT DENTAL [address] [place] [address] Yoel Tam Social History Tobacco Use Types [...] Description 10/20/2024 9:45 AM EDT Office Visit [facility] MEDICINE [address] [place] [address] documented as of this encounter Visit Diagnoses Not on filedocumented in this encounter Additional Health Concerns Assessment Noted Time PHQ-9 Depression Total Score: 2 12/08/19 23 1:16 PM EDT documented as of this encounter Care Teams Bleach Liquor Maker Relationship Specialty Start Date End Date Josette Stuart FNP [address] [place] [address] PCP - General Family Medicine 04/30/22 01/27/24 Josette Stuart FNP [address] [place] [address] PCP - General Family Medicine 01/28/24 03/30/24 Leidy Dunham NP [address] [place] [address] PCP - General Family Medicine 03/31/24 documented as of this encounter
--- OUTSIDE RECORDS SUMMARY | 2024-10-02 15:28 | XMS_ITS | Data Portability ---
Author Organization BRAYDEN Plunkett MD , [facility] Address [address] [place] [address] Care Team Providers Care Analytical Scientist Name Role Phone CESAR JUAREZ Primary Care Provider CESAR JUAREZ Referring Provider [phone] Assessment Encounter Date Assessment Date Assessment LastModified by Organization Details LastModified Time 05/19/2019 05/19/2019 IMAGING MRI of the right shoulder was reviewed. There is evidence of rein-es-xrjeropj arthritic change of the AC joint. There [...] knee No observ ation record ed. [email or web address] [facility] Radiology [address], [address], 05/28/2019 10:45:58 Result Notes None recorded. Problems Name Problem SNOMED Code Status Onset Date Resolution Date Notes Provider Name and Address Organization Details Recorded Time Disorder of bursa of shoulder region 92246605 Active 2018 BRAYDEN Viveros MD 9 11:34:17 Shoulder joint pain 624719670 Active 2018 BRAYDEN Viveros MD 9 11:34:39 Localized, primary osteoarthritis 517129902 Active 2018 BRAYDEN Viveros MD 9 11:34:52 Localized, primary osteoarthritis of the shoulder region 606083947 Active 2018 BRAYDEN Viveros MD 9 10:56:37 Bicipital tenosynovitis 30977485 Active 2018 BRAYDEN Viveros MD 9 10:56:48 Partial thickness rotator cuff tear 232857150 Active 2018 BRAYDEN Viveros MD 9 10:57:03 Articular cartilage disorder of shoulder region 618426309 Active 2018 Darrell Plunkett MD [address], [place], [address], BRAYDEN Plunkett MD 9 18:03:07 Problem Notes None recorded. Procedures Surgical History Date Name Laterality Status Provider Name and Address Organization Details Recorded Time 3 Carpal tunnel surgery completed [facility] BRAYDEN Plunkett MD 03/10/2019 11:40:39 Imaging Results Imaging Date Name Status LastModified by Organiz ation Details LastModified Time 05/26/2019 XR, knee completed [email or web address] [address], [place], [address], 05/28/2019 10:45:58 Procedure Notes None recorded. Medical [...] Updated DateTime 07/14/2019 167.64 cm 35.3 kg/m2 52308.73 g lester Plunkett MD 07/14/2019 11:02:19 Social [...] SNOMED-CT Code Diagnosis ICD10 Code Diagnosis Note [id number] Darrell PLUNKETT M.D. 1 [facility] [employer],[address] [address] 03/10/2019 09:40:59 03/10/2019 11:21:45 Localized, primary osteoarthritis 058695652 M19.011 Shoulder joint pain 2679 37640 M25.511 Disorder o f bursa of shoulder region 44672207 M25.811 [id number] MD DARRELL Ramírez M.D. 1 [employer],[address] [address] 05/19/2019 08:52:47 05/19/2019 09:49:55 Localized, primary osteoarthritis 557974098 M19.011 Shoulder joint pain 2679 00522 M25.511 Bicipital tenosynovitis 53860851 M75.21 Partial th ickness rotator cuff tear 055709370 M75.101 [id number] MD DARRELL Ramírez M.D. 1 [employer] [facility],[address] [address] 05/26/2019 09:01:43 05/26/2019 10:55:03 Localized, primary osteoarthritis of the shoulder region 213689822 M19.011 Shoulder joint pain 2679 50224 M25.511 Bicipital tenosynovitis 00984711 M75.21 Partial th ickness rotator cuff tear 562378893 M75.101 [id number] MD Ria Ramírez [address] [address] 06/09/2019 18:02:24 06/09/2019 18:06:28 Localized, primary osteoarthritis of the shoulder region 241677342 M19.011 Partial th ickness rotator cuff tear 634403802 M75.101 Bicipital tenosynovitis 34118719 M75.21 Disorder o f bursa of shoulder region 26367231 M25.811 Articular cartilage disorder of shoulder region 452722834 M24.111 [id number] Darrell PLUNKETT M.D. 1 [employer],[address] [place] [address] 06/16/2019 10:15:14 06/16/2019 11:32:29 Articular cartilage disorder of shoulder region 328309754 M24.111 Bicipital tenosynovitis 43232703 M75.21 Disorder o f bursa of shoulder region 68480835 M25.811 Localized, primary osteoarthritis 396434452 M19.011 Localized, primary osteoarthritis of the shoulder region 407074766 M19.011 Partial th ickness rotator cuff tear 671013064 M75.101 Shoulder joint pain 2679 48727 M25.511 [id number] Darrell PLUNKETT M.D. [address] [address] 07/14/2019 09:46:36 07/14/2019 10:59:23 Articular cartilage disorder of shoulder region 346392720 M24.111 Disorder o f bursa of shoulder region 39969642 M25.811 Shoulder joint pain 2679 33155 M25.511 Bicipital tenosynovitis 27847555 M75.21 Partial th ickness rotator cuff tear 034530295 M75.101 Health Concerns Section Related Observation LastModified by Organization Detai ls LastModified Time None Recorded Concern Status LastModified by Organization Details LastModified Time None Recorded Advance Directives Directive None Recorded Payers Encounter Date Sequence Insurance Name Policy Number Policy Donis Covered Member ID Donis Member ID Guarantor Name 05/19/2019 1 [place] Kristal A Osl [id number] Kristal A Osl 05/26/2019 1 [place] Kristal A Osl [id number] Kristal A Osl 06/04/2019 1 [place] Kristal A Osl [id number] Kristal A Osl 06/16/2019 1 [place] Kristal A Osl [id number] Kristal A Osl 07/14/2019 1 [place] Kristal A Osl [id number] Kristal A Osl Notes Date Note Type Note Provider Name and Address Organization Details Recorded Time 05/19/2019 text/html Kristal returns f or reassessment of her right shoulder and MRI followup. Darrell Plunkett MD [address], [place], [address], BRAYDEN Plunkett MD 06/08/2019 15:17:47 06/16/2019 text/html [...]
--- OUTSIDE RECORDS SUMMARY | 2024-10-02 15:28 | XMS_ITS | Encounter Summary ---
Author Organization [employer] Address [address] [place] [address] [address] [place] [address] Care Team Providers Care Credit Administrator Name Role Phone Josette Stuart Primary Care Provider [phone] Josette Stuart Primary Care Provider [phone] Leidy Dunham NP Primary Care Provider [phone] Encounter Details Date Type Department Care Team (Late st Contact Info) Description 04/11/2023 Abstract [facility] [address] [place] [address] Josette Stuart FNP [address] [place], [place] [phone] Social History Tobacco Use Types Packs/Day Years [...] Description 10/20/2024 9:45 AM EDT Office Visit [facility] [address] [place] [address] documented as of this encounter Procedures Procedure [...] documented as of this encounter Care Teams Credit Administrator Relationship Specialty Start Date End Date Josette Stuart FNP [address] [place] [address] PCP - General Family Medicine 04/30/22 01/27/24 Josette Stuart FNP [address] [place] [address] PCP - General Family Medicine 01/28/24 03/30/24 Leidy Dunham NP [address] [place] [address] PCP - General Family Medicine 03/31/24 documented as of this encounter
--- OUTSIDE RECORDS SUMMARY | 2024-10-02 15:29 | XMS_ITS | Encounter Summary ---
Author Organization [employer] Address [address] [place] [address] 7[address] [place] [address] Care Team Providers Care Electricity Trading Analyst Name Role Phone Josette Stuart Primary Care Provider [phone] Josette Stuart Primary Care Provider [phone] Leidy Dunham NP Primary Care Provider [phone] Reason for Visit * Reason Onset Date Comments Medication Question 03/19/2023 Encounter Details Date Type Department Care Team ([facility] st Contact Info) Description 03/19/2023 Telephone [facility] [address] [place], [place] [phone] Josette Stuart FNP [address] [place], [place] [phone] Medication Question Social History Tobacco Use Types [...] clarify and verify. Please contact pt at [phone] documented in this encounter Plan of Treatment Upcoming Encounters Date Type Department Care Team (Late st Contact Info) Description 10/20/2024 9:45 AM EDT Office Visit [facility] [address] [place] [address] documented as of this encounter Visit Diagnoses Not on filedocumented in this encounter Additional Health Concerns Assessment Noted Time PHQ-9 Depression Total Score: 2 12/08/19 23 1:16 PM EDT documented as of this encounter Care Teams Electricity Trading Analyst Relationship Specialty Start Date End Date Josette Stuart FNP [address] [place] [address] PCP - General Family Medicine 04/30/22 01/27/24 Josette Stuart FNP [address] [place] [address] PCP - General Family Medicine 01/28/24 03/30/24 Leidy Dunham NP [address] [place] [address] PCP - General Family Medicine 03/31/24 documented as of this encounter
--- OUTSIDE RECORDS SUMMARY | 2024-10-02 15:29 | XMS_ITS | Encounter Summary ---
Author Organization [employer] Address [address] [place] [address] Care Team Providers Care Performance Test Architect Name Role Phone Leidy Dunham NP Primary Care Provider [phone] Encounter Details Date Type Department Care Team ([facility] st Contact Info) Description 09/07/2024 Orders Only [facility] [address] [place], [place] [phone] Leidy Dunham NP [address] [place], [place] [phone] Social History Tobacco Use Types Packs/Day Years [...] Description 10/20/2024 9:45 AM EDT Office Visit [facility] [address] [place] [address] documented as of this encounter Procedures Procedure Name Priority Date/Time Associated Diagnosis Comments COMPLETE BLOOD COUNT MAN DIF Routine 09/07/2024 2:52 PM EST T4, FREE Routine 09/07/2024 2:52 PM EST documented in this encounter Results * T4, Free (09/07/2024 2:52 PM EST) Pathologist [facility] Free T4 (Free Thyroxine) 0.86 0.71 - 1.85 ng/dL [facility] 09/07/2024 2:52 PM EST 09/07/2024 4:02 PM EST us Leidy Dunham NP LAB BLOOD ORDERABLES Final Resul t [facility] [address] [place] [address] [phone] * (ABNORMAL) Complete Blood Count Manual Diff (09/07/2024 2:52 PM EST) Pathologist [facility] White Blood Count 11.5(H) 4.8 - 10.8 X10*3/uL [facility] Red Blood Count 4.22 4.20 - 5.50 X10*6/uL [facility] Hemoglobin 11.6(L) 12.0 - 16.0 g/dl [facility] Hematocrit 34.6(L) 37.0 - 47.0 % [facility] Mean Corpuscular Volume 82.0 80.0 - 98.0 fL [facility] Mean Corpuscular Hemoglobin 27.5 27.0 - 33.0 pg [facility] Mean Corpuscular HGB Conc 33.5 31.0 - 35.0 g/dl [facility] Red Cell Distribution Width 15.4 11.0 - 16.0 % [facility] Platelet Count 349 160 - 400 X10*3/uL [facility] Mean Platelet Volume 11.3 9.4 - 12.3 fL [facility] NRBC Pct Auto 0.0 0.0 - 0.2 /100WBC [facility] NRBC Abs Auto 0.000 0.0 - 0.012 X10*3/uL [facility] Neutrophils % Manual 52 45 - 73 % [facility] Band Neutrophils Percent 3 3 - 5 % [facility] Lymphocytes Percent Manual 32 20 - 40 % [facility] Monocytes Percent Manual 12(H) 2 - 11 % [facility] Myelocytes 1 % [facility] NEUTROPHILS ABSOLUTE MANUAL 6.3 2.0 - 8.3 X10*3/uL [facility] LYMPHOCYTES ABSOLUTE MANUAL 3.7 1.2 - 4.9 X10*3/uL [facility] MONOCYTES ABSOLUTE MANUAL 1.4(H) 0.1 - 1.2 X10*3/uL [facility] Absolute Myelocytes 0.1 X10*/uL [facility] Platelet Estimate [facility] Platelet Morphology Comment NORMAL [facility] RBC Morphology [facility] 09/07/2024 2:52 PM EST 09/07/2024 4:02 PM EST us Leidy Dunham COUNSELOR EDUCATION PROFESSOR LAB BLOOD ORDERABLES Final Resul t [facility] [address] [place] [address] [phone] documented in this encounter Visit Diagnoses Not on filedocumented in this encounter Additional Health Concerns Assessment Noted Time PHQ-9 Depression Total Score: 12 025 2:09 PM EST documented as of this encounter Care Teams Performance Test Architect Relationship Specialty Start Date End Date Leidy Dunham NP [address] [place] [address] PCP - General Family Medicine 03/31/24 documented as of this encounter
--- OUTSIDE RECORDS SUMMARY | 2024-10-02 15:29 | XMS_ITS | Encounter Summary ---
Author Organization [employer] Address [address] [facility] [address] [place] [address] Care Team Providers Care Display Trimmer Name Role Phone Leidy Dunham SHAYE Primary Care Provider [phone] Encounter Details Date Type Department Care Team (Latest Contact Info) Description 09/22/2024 Travel Social History Tobacco Use Types Packs/Day [...] Description 10/20/2024 9:45 AM EDT Office Visit [facility] [address] [place] [address] documented as of this encounter Visit Diagnoses Not on filedocumented in this encounter Additional Health Concerns Assessment Noted Time PHQ-9 Depression Total Score: 12 025 2:09 PM EST documented as of this encounter Care Teams Display Trimmer Relationship Specialty Start Date End Date Leidy Dunham NP [address] [place] [address] PCP - General Family Medicine 03/31/24 documented as of this encounter
--- OUTSIDE RECORDS SUMMARY | 2024-10-02 15:29 | XMS_ITS | Encounter Summary ---
Author Organization [employer] Address [address] [place] [address] 7 [place] [address] Care Team Providers Care Bank Officer Name Role Phone Leidy Dunham NP Primary Care Provider [phone] Reason for Referral * Imaging (Routine) - Authorized Specialty Diagnoses / Procedures Referred By Neno paige Referred To Contact Cardiology Diagnoses Hypertension, unspecified type Shortness of breath Procedures Transthoracic Echo (TTE) Complete Leidy Dunham NP [address] [place] [address] Phone: tel: fax: [address] Phone: tel: fax: Referral ID Status Reason Start Date Expiration Date Visits Requested Visits Authorized [id number] Authorized Perform Procedure 09/07/2024 09/07/2025 1 1 * Consultation (Routine) - Authorized Specialty Diagnoses / Procedures Referred By Neno paige Referred To Contact Psychology Diagnoses Attention deficit hyperactivity disorder (ADHD), unspecified ADHD type Leidy Dunham NP [address] [place] [address] Phone: tel: fax: Referral ID Status Reason Start Date Expiration Date Visits Requested Visits Authorized [id number] Authorized Specialty Services Required 09/07/2024 09/07/2025 1 1 * Consultation (Routine) - Canceled Specialty Diagnoses / Procedures Referred By Neno paige Referred To Contact Gastroenterology Diagnoses Gastroesophageal reflux disease, unspecified whether esophagitis present Gastroesophageal reflux disease with esophagitis without hemorrhage Leidy Dunham NP [address] [place] [address] Phone: tel: fax: Referral ID Status Reason Start Date Expiration Date Visits Requested Visits Authorized [id number] Canceled Specialty Services Required 09/07/2024 09/07/2025 1 1 * Consultation (Routine) - Canceled Specialty Diagnoses / Procedures Referred By Neno paige Referred To Contact Cardiology Diagnoses Hypertension, unspecified type Leidy Dunham NP [address] [place] [address] Phone: tel: fax: Referral ID Status Reason Start Date Expiration Date Visits Requested Visits Authorized [id number] Canceled Specialty Services Required 09/07/2024 09/07/2025 1 1 Encounter Details Date Type Department Care Team (Latest Contact Info) Description 09/07/2024 1:45 PM EST Office Visit [facility] [address] [place], [place] [phone] Leidy Dunham NP [address] [place], [place] [phone] Attention deficit hyperactivity disorder (ADHD), unspecified ADHD [...] Description 10/20/2024 9:45 AM EDT Office Visit [facility] [address] [place] [phone] Scheduled Orders Name Type Priority Associated Diagnoses Orde r Schedule Transthoracic Echo (TTE) Complete Echocardiography Routine Hypertension, unspecified type Shortness of breath Expected: 09/07/2024 (Approximate), Expires: 09/07/2026 TSH W/Reflex to FT4 Lab Routine Hypothyroidism, unspecified type Expected: 09/07/2024 (Approximate), Expires: 09/07/2025 XR Foot [...] Expires: 09/07/2025 documented as of this encounter Procedures Procedure Name Priority Date/Time Associated Diagnosis Comments CBC WITH AUTO DIFFERENTIAL Routine 09/07/2024 2:52 PM EST Hypothyroidism, unspecified type IRON AND TOTAL IRON BINDING CAPACITY Routine 09/07/2024 2:52 PM EST Hypothyroidism, unspecified type Acute dilatation of stomach HEMOGLOBIN A1C Routine 09/07/2024 2:52 PM EST Hypertension, unspecified type Shortness of breath Obesity, Class I, BMI 30-34.9 Postsurgical malabsorption, not elsewhere classified COMPREHENSIVE METABOLIC PANEL Routine 09/07/2024 2:52 PM EST Shortness of breath documented in this encounter Results * Hemoglobin A1c (09/07/2024 2:52 PM EST) Hemoglobin A1c 5.4 <6.0 % [facility] Comment:Hemoglobin A1C Refer ence Range Adults: 4.8 - 6.0 % Non diabetic: < 6.0 % Goal: < 7.0 %Additional Action Suggested: > 8.0 %Note: Hemoglobin A1c results are invalid for patients with abnormal amounts of HbF. Blood transfusions may impact the HbA1c concentration in the patient sample. Estimated Average Glucose 108 mg/dL [facility] Comment:eAG = Estimated ave rage glucose which is %A1C expressed asaverage glucose, using the formula of the S5H-PrzjhsyFgybklw Glucose study (ADAG), Diabetes Care, Vol.31,#8,Feb. 2007 Blood Venous blood specimen / Unknown 09/07/2024 2:52 PM EST 09/07/2024 4:02 PM EST us Leidy Dunham APPEALS REFEREE LAB BLOOD ORDERABLES Final Resul t Performing Organization Address City/[facility]/ZIP Co de Phone Number [facility] [address] [place] [address] [phone] * Iron And Total Iron Binding Capacity (09/07/2024 2:52 PM EST) Iron 40 30 - 160 mcg/dL [facility] Total Iron Binding Capacity 259 228 - 428 mcg/dL [facility] Percent Iron Saturation 15 15 - 50 % [facility] Unsaturated Iron Binding 219 ug/dL [facility] Blood Venous blood specimen / Unknown 09/07/2024 2:52 PM EST 09/07/2024 4:02 PM EST us Leidy Dunham APPEALS REFEREE LAB BLOOD ORDERABLES Final Resul t Performing Organization Address [facility]/ZIP Co de Phone Number [facility] [address] [place] [phone] * (ABNORMAL) CBC auto differential (09/07/2024 2:52 PM EST) White Blood Count 11.5(H) 4.8 - 10.8 X10*3/uL [facility] Red Blood Count 4.22 4.20 - 5.50 X10*6/uL [facility] Hemoglobin 11.6(L) 12.0 - 16.0 g/dl [facility] Hematocrit 34.6(L) 37.0 - 47.0 % [facility] Mean Corpuscular Volume 82.0 80.0 - 98.0 fL [facility] Mean Corpuscular Hemoglobin 27.5 27.0 - 33.0 pg [facility] Mean Corpuscular HGB Conc 33.5 31.0 - 35.0 g/dl [facility] Red Cell Distribution Width 15.4 11.0 - 16.0 % [facility] Platelet Count 349 160 - 400 X10*3/uL [facility] Mean Platelet Volume 11.3 9.4 - 12.3 fL [facility] Neutrophils Percent Auto 48.8 45 - 73 % [facility] Imm Gran Pct Auto 6.9(H) 0.0 - 0.4 % [facility] Lymphocytes Percent Auto 32.5 20 - 40 % [facility] Monocytes Percent Auto 8.1 2 - 11 % [facility] Eosinophils Percent Auto 2.6 0 - 4 % [facility] Basophils Percent Auto 1.1 0 - 2 % [facility] NRBC Pct Auto 0.0 0.0 - 0.2 /100WBC [facility] Neutrophils Absolute Auto 5.6 2.0 - 8.3 x10*3/uL [facility] Imm Gran Abs Auto 0.79(H) 0.00 - 0.03 X10*3/uL [facility] Lymphocytes Absolute Auto 3.7 1.2 - 4.9 X10*3/uL [facility] Monocytes Absolute Auto 0.9 0.1 - 1.2 X10*3/uL [facility] Eosinophils Absolute Auto 0.3 0.0 - 0.4 X10*3/uL [facility] Basophils Absolute Auto 0.1 0.0 - 0.2 X10*3/uL [facility] NRBC Abs Auto 0.000 0.0 - 0.012 X10*3/uL [facility] Blood Venous blood specimen / Unknown 09/07/2024 2:52 PM EST 09/07/2024 4:02 PM EST us Leidy Dunhma APPEALS REFEREE LAB BLOOD ORDERABLES Edited Resu lt - Final [facility] [address] [place] [address] [phone] * (ABNORMAL) Comprehensive Metabolic Panel (09/07/2024 2:52 PM EST) Sodium 141 135 - 145 mmol/L [facility] Potassium 3.3 3.3 - 5.1 mmol/L [facility] Chloride 107 96 - 108 mmol/L [facility] Carbon Dioxide 28 22 - 29 mmol/L [facility] Anion Gap 9(L) 12 - 20 [facility] Urea Nitrogen (BUN) 8(L) 9 - 16 mg/dL [facility] Creatinine, Serum 0.98 0.5 - 1.4 mg/dL [facility] Estimated Glomerular Filt Rate 59 [facility] Comment:Chronic Kidney Disea se: Estimated GFR < 60 mL/min/1.89g9Lchxch Kidney Disease: Estimated GFR < 15 mL/min/1.73m2 Glucose 86 60 - 115 mg/dL [facility] Calcium 8.7 8.4 - 10.2 mg/dL [facility] Bilirubin, Total 0.2 0.0 - 1.0 mg/dL [facility] Aspartate Amino Transferase 20 5 - 31 U/L [facility] Alanine Aminotransferase 11 0 - 31 U/L [facility] Total Protein 6.5 6.5 - 8.0 g/dL [facility] Albumin Level 3.7 3.5 - 5.0 g/dL [facility] Alkaline Phosphatase 81 39 - 117 U/L [facility] Blood Venous blood specimen / Unknown 09/07/2024 2:52 PM EST 09/07/2024 4:02 PM EST us Leidy Dunham NP LAB BLOOD ORDERABLES Final Resul t [facility] [address] [place] [address] [phone] documented in this encounter Visit Diagnoses Diagnosis Attention deficit [...] documented as of this encounter Care Teams Bank Officer Relationship Specialty Start Date End Date Leidy Dunham NP [address] [place] [address] PCP - General Family Medicine 03/31/24 documented as of this encounter
--- OUTSIDE RECORDS SUMMARY | 2024-10-02 15:29 | XMS_ITS | Encounter Summary ---
Author Organization [employer] Address [address] [place] [address] 7 [place] [address] Care Team Providers Care Wet Milling Wheel Operator Name Role Phone RolyLeidy SHAYE Primary Care Provider [phone] Reason for Visit * Reason Onset Date Comments Lab Orders 09/30/2024 Encounter Details Date Type Department Care Team ([facility] Contact Info) Description 09/30/2024 Telephone [facility] MED & PEDS [address] [place], [place] [phone] Aria Anderson FNP [address] [place] [address] Lab Orders Social History Tobacco Use Types Packs/Day Years [...] encounter Miscellaneous Notes * Telephone Encounter - David Rodriguez MA - 09/30/2024 3:52 PM EST Call pt ask if her UTI have resolved. Pt stated the medication helps the first 3 day, but after shewas out of the medication her UTI return. Ask pt if she will be able to come to [facility] lab to completed a UA. Pt stated will come tomorrow to the Lab work Completed. * Telephone Encounter - David Rodriguez MA - 09/30/2024 3:51 PM EST ----- Message from Aria Anderson sent at 09/27/2024 7:46 PM EST ----- Please call to ask if her urinary symptoms have resolved following last group. If not, please have her come to lab to complete UA w/ UC (please place order for co-sign). Thanks! documented in this encounter Plan of Treatment Upcoming Encounters Date Type Department Care Team (Late st Contact Info) Description 10/20/2024 9:45 AM EDT Office Visit [facility] MEDICINE [address] [place] [address] Scheduled Orders Name Type Priority Associated Diagnoses Orde r Schedule Urinalysis, Complete, with Reflex to Culture Lab Routine UTI symptoms Expected: 09/30/2024 (Approximate), Expires: 09/30/2025 documented as of this encounter Visit Diagnoses Diagnosis UTI symptoms- Primary documented in this encounter Additional Health Concerns Assessment Noted Time PHQ-9 Depression Total Score: 12 025 2:09 PM EST documented as of this encounter Care Teams Wet Milling Wheel Operator Relationship Specialty Start Date End Date Leidy Dunham NP [address] [place] [address] PCP - General Family Medicine 03/31/24 documented as of this encounter
--- OUTSIDE RECORDS SUMMARY | 2024-10-02 15:29 | XMS_ITS | Encounter Summary ---
Author Organization [employer] Address [address] [facility] 7t [place] [address] Care Team Providers Care Monogram Operator Name Role Phone Josette Stuart Primary Care Provider [phone] Josette Stuart Primary Care Provider [phone] Leidy Dunham NP Primary Care Provider [phone] Encounter Details Date Type Department Care Team (Late st Contact Info) Description 01/10/2023 Abstract [facility] MEDICINE [address] [place], [place] [phone] Josette Stuart FNP [address] [place], [place] [phone] Social History Tobacco Use Types Packs/Day Years [...] Description 10/20/2024 9:45 AM EDT Office Visit [facility] MEDICINE [address] [place] [address] documented as of this encounter Procedures Procedure Name Priority Date/Time Associated Diagnosis Comments COLONOSCOPY Routine 11/23/2021 8:53 AM EDT documented in this encounter Results * Hm Colonoscopy (11/23/2021 8:53 AM EDT) Colonoscopy Normal Normal Narrative Mirtha Everett - 11/23/2021 8:53 AM EDT Recommended 10 year follow up ( [facility] [place] us Historical Provider HEALTH MAINTENANCE Edited Result - Final documented in this encounter Visit Diagnoses Not on filedocumented in this encounter Additional Health Concerns Assessment Noted Time PHQ-9 Depression Total Score: 2 12/08/19 23 1:16 PM EDT documented as of this encounter Care Teams Monogram Operator Relationship Specialty Start Date End Date Josette [place] [address] PCP - General Family Medicine 04/30/22 01/27/24 [place] [address] PCP - General Family Medicine 01/28/24 03/30/24 [place] [address] PCP - General Family Medicine 03/31/24 documented as of this encounter
--- OUTSIDE RECORDS SUMMARY | 2024-10-02 15:29 | XMS_ITS | Encounter Summary ---
Author Organization [employer] Address [address] 7[address] [place] [address] Care Team Providers Care Ophthalmic Nurse Name Role Phone RolyLeidy SHAYE Primary Care Provider [phone] Encounter Details Date Type Department Care Team ([facility] st Contact Info) Description 09/03/2024 Telephone [facility] MEDICINE [address] [place], [place] [phone] Lorraine Garcia, CIARA Social History Tobacco Use [...] t he electric, gas, oil or water [employer] threatened to shut off services in your [...] Telephone Encounter - Lorraine Garcia RN - 09/09/2024 10:07 AM EST Tc to pt to let them know per PCP Attempted to reach pt after visit and labs yesterday, tsh very elevated, resume levothyroxine oral, repeat labs in 6 weeks. . Pt advised of medications that were ordered by PCP, advised to avoid eating spicy foods,carbonated beverages and should wait at least twohours before laying down after meals. Pt advised that PCP would like pt to complete labs in 6 weekswhich would be in the week of 10/21/24 and encouraged to go to [facility] lab at their convenience at that time. Pt verbalized understanding and denies any further questions or concerns at this time. Message forwarded to PCP as an FYI. * Telephone Encounter - Lorraine Garcia RN [...] to be evaluated and also provided wic and Saturday hours. Pt agreeswith plan and message forwarded to PCP as an FYI. Pt has upcoming appt with PCP on 09/07/24. documented in this encounter Plan of Treatment Upcoming Encounters Date Type Department Care Team (Late st Contact Info) Description 10/20/2024 9:45 AM EDT Office Visit [facility] MEDICINE [address] [place] [address] documented as of this encounter Visit Diagnoses Not on filedocumented in this encounter Additional Health Concerns Assessment Noted Time PHQ-9 Depression Total Score: 2 12/08/19 23 1:16 PM EDT documented as of this encounter Care Teams Ophthalmic Nurse Relationship Specialty Start Date End Date Leidy Weller NP [address] [place] [address] PCP - General Family Medicine 03/31/24 documented as of this encounter
--- OUTSIDE RECORDS SUMMARY | 2024-10-02 15:29 | XMS_ITS | Encounter Summary ---
Author Organization [employer] Address [address] 7t [place] [address] Care Team Providers Care Platform Worker Name Role Phone Josette Stuart Primary Care Provider [phone] Josette Stuart Primary Care Provider [phone] Leidy Dunham NP Primary Care Provider [phone] Encounter Details Date Type Department Care Team (Late Contact Info) Description 03/19/2023 Orders Only [facility] CHC MED & PEDS [address] [place] [address] Josette Stuart FNP [address] [place] [address] Social History Tobacco Use Types Packs/Day Years [...] Department Care Team (Late Contact Info) Description 10/20/2024 9:45 AM EDT Office Visit [facility] MEDICINE [address] [facility] [place] [address] documented as of this encounter Visit Diagnoses Not on filedocumented in this encounter Additional Health Concerns Assessment Noted Time PHQ-9 Depression Total Score: 2 12/08/19 23 1:16 PM EDT documented as of this encounter Care Teams Platform Worker Relationship Specialty Start Date End Date Josette Stuart FNP [address] [facility] [place] [address] PCP - General Family Medicine 04/30/22 01/27/24 Josette Stuart FNP [address] [place] [address] PCP - General Family Medicine 01/28/24 03/30/24 Leidy Dunham NP [address] [place] [address] PCP - General Family Medicine 03/31/24 documented as of this encounter
--- OUTSIDE RECORDS SUMMARY | 2024-10-02 15:29 | XMS_ITS | Encounter Summary ---
Author Organization [employer] Address [address] [facility] 7t [place] [address] Care Team Providers Care Chief Of Staff Doctor Name Role Phone Josette Stuart Primary Care Provider [phone] Josette Stuart Primary Care Provider [phone] Leidy Dunham NP Primary Care Provider [phone] Encounter Details Date Type Department Care Team (Late st Contact Info) Description 02/05/2023 Abstract [facility] MEDICINE [address] [place], [place] [phone] Josette Stuart FNP [address] [place], [place] [phone] Social History Tobacco Use Types Packs/Day Years [...] Description 10/20/2024 9:45 AM EDT Office Visit [facility] MEDICINE [address] [facility] [place] [address] documented as of this encounter Visit Diagnoses Not on filedocumented in this encounter Additional Health Concerns Assessment Noted Time PHQ-9 Depression Total Score: 2 12/08/19 23 1:16 PM EDT documented as of this encounter Care Teams Chief Of Staff Doctor Relationship Specialty Start Date End Date Josette Stuart FNP [address] [place] [address] PCP - General Family Medicine 04/30/22 01/27/24 Josette [place] [address] PCP - General Family Medicine 01/28/24 03/30/24 [place] [address] PCP - General Family Medicine 03/31/24 documented as of this encounter
--- OUTSIDE RECORDS SUMMARY | 2024-10-02 15:29 | XMS_ITS | Encounter Summary ---
Author Organization [employer] Address [address] [place] [address] 7t [place] [address] Care Team Providers Care Inside Account Executive Name Role Phone Josette Stuart Primary Care Provider [phone] Josette Stuart Primary Care Provider [phone] Leidy Dunham NP Primary Care Provider [phone] Encounter Details Date Type Department Care Team (Late st Contact Info) Description 01/17/2023 Abstract [facility] MEDICINE [address] [place] [phone] Josette Stuart FNP [address] [place], [place] [phone] Social History Tobacco Use Types Packs/Day Years [...] Description 10/20/2024 9:45 AM EDT Office Visit [facility] MEDICINE [address] [place] [address] documented as of this encounter Visit Diagnoses Not on filedocumented in this encounter Additional Health Concerns Assessment Noted Time PHQ-9 Depression Total Score: 2 12/08/19 23 1:16 PM EDT documented as of this encounter Care Teams Inside Account Executive Relationship Specialty Start Date End Date Josette Stuart FNP [address] [place] [address] PCP - General Family Medicine 04/30/22 01/27/24 Josette Stuart FNP [address] [place] [address] PCP - General Family Medicine 01/28/24 03/30/24 Leidy Dunham NP [address] [place] [address] PCP - General Family Medicine 03/31/24 documented as of this encounter
--- OUTSIDE RECORDS SUMMARY | 2024-10-02 15:29 | XMS_ITS | Encounter Summary ---
Author Organization [employer] Address [address] [facility] 7t [place] [address] Care Team Providers Care Travel Director Name Role Phone Josette Stuart Primary Care Provider [phone] Josette Stuart Primary Care Provider [phone] Leidy Dunham NP Primary Care Provider [phone] Encounter Details Date Type Department Care Team (Late st Contact Info) Description 12/26/2023 Orders Only [facility] MEDICINE [address] [place], [place] [phone] Maryann Stokes MD [address] [place], [place] [phone] Social History Tobacco Use Types Packs/Day Years [...] Description 10/20/2024 9:45 AM EDT Office Visit [facility] MEDICINE [address] [place] [address] documented as of this encounter Visit Diagnoses Not on filedocumented in this encounter Additional Health Concerns Assessment Noted Time PHQ-9 Depression Total Score: 2 12/08/19 23 1:16 PM EDT documented as of this encounter Care Teams Travel Director Relationship Specialty Start Date End Date Josette Stuart FNP [address] [place] [address] PCP - General Family Medicine 04/30/22 01/27/24 Josette Stuart FNP [address] [place] [address] PCP - General Family Medicine 01/28/24 03/30/24 Leidy Dunham NP [address] [place] [address] PCP - General Family Medicine 03/31/24 documented as of this encounter
--- OUTSIDE RECORDS SUMMARY | 2024-10-02 15:29 | XMS_ITS | Encounter Summary ---
Author Organization [employer] Address [address] 7t [place] [address] Care Team Providers Care Cafe Worker Name Role Phone Gayle Dunhamily SHAYE Primary Care Provider Encounter Details Date Type Department Care Team (Latest Contact Info) Description 09/22/2024 9:45 AM EST Office Visit [facility] MEDICINE [address] [place] [address] Aria Anderson FNP [address] [place], [place] [phone] Osteoarthritis involving multiple joints on both sides of body (Primary Dx); FPC (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; Spondylosis of thoracolumbar spine; Dysuria Social History Tobacco Use Types Packs/Day Years [...] this encounter Progress Notes * Aria Anderson, JULIO CESAR - 09/22/2024 9:45 AM EST Subjective: Kristal Storey is a 54 y.o. female w/ PMH LONA, HTN, OA of hips, knees, and shoulders, GERD, hypothyroidism, bipolar 2 disorder, who presents to the office for - Chronic Pain Clinic Group visits. Initial Group visit: 08/20/23 Last PCP visit: 09/07/24, SHAYE Dunham Group Confidentiality last signed: 08/25/24 Group Topic: Arnica/Salves Acute concerns: dysuria, urinary urgency and frequency x multiple days. No flank pain. No F/C/N/V/D. Reports that she experiences yeast infx consistently after taking course of abx. Chronic Pain History: Associated Diagnosis: osteoarthritis, thoracolumbar spondylosis, L hip replacement at [facility] Relevant Imaging: Jul 2024: XR lumbar [...] on both sides of body - Primary Current Assessment & Plan -Good engagement and participation with Group Medical Visit model -Encouraged multifactorial approach to pain control including pharm and non- pharm modalities -UTOX and Pill count as expected Spondylosis of thoracolumbar spine Overview Apr 2024: CT abd/pelvis demonstrated multilevel thoracolumbar spondylosis and Grade 1 retrolisthesis L5-S1, T12-L1 and L1-2 levels. Jul 2024: XR lumbar spine c/w degenerative spondylosis Other FPC (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 Overview Associated Dx: OA bilat hips, s/p L hip replacement Rx: Tramadol 50mg BID PRN Last OVERHEAD DOOR TECHNICIAN agreement: 02/14/24 Tier II (OVERHEAD DOOR TECHNICIAN visit every 3 months) Relevant Orders POCT MAU-14 Urine Drug Screen (Completed) Other Visit Diagnoses Dysuria - Empiric tx with Bactrim sent to pharmacy - Not enough urine for UA w/ UC send out. Will return to office if symptoms persist following tx initiation - Fluconazole PRN vulvovaginal candidiasis which pt reports she frequently experiences following course of abx - Follow up precautions reviewed Follow up: 1-3 months chronic pain group and PCP prn * Krista Guadalupe RN - 09/22/2024 9:45 AM EST OVERHEAD DOOR TECHNICIAN gre tutor: PDMP reviewed today. Last fill date: 08/11/24 Tramadol 50mg count was 16, anticipated 0 to be remaining. UTOX completed. Negative for all substances: AMP, BAR, BUP, BZO, DAYSI, FTY, MDMA, MET, MOP, MTD, OXY, PCP, TCA, THC. UTOX as expected. documented in this encounter Miscellaneous Notes * Assessment & Plan Note - JULIO CESAR Forde - 09/27/2024 7:43 PM ESTAssociated Problem(s): Osteoarthritis involving multiple joints on both sides of body -Good engagement and participation with Group Medical Visit model -Encouraged multifactorial approach to pain control including pharm and non- pharm modalities -UTOX and Pill count as expected documented in this encounter Plan of Treatment Upcoming Encounters Date Type Department Care Team (Late st Contact Info) Description 10/20/2024 9:45 AM EDT Office Visit [address] [address] documented as of this encounter Procedures Procedure Name Priority Date/Time Associated Diagnosis Comments POCT MAU-14 URINE DRUG SCREEN Routine 09/22/2024 1:44 PM EST FPC (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 documented in this encounter Results * POCT MAU-14 Urine Drug Screen (09/22/2024 1:44 PM EST) THC Positive Urine Urine specimen obtained by clean catch procedure / Unknown 09/22/2024 1:44 PM EST Narrative Krista Guadalupe RN - 09/22/2024 1:44 PM EST UTOX cup Lot#[id number] Exp. 03/17/26 Internal Pass Control Aria HARRELL POINT OF CARE TEST ENTER/EDIT ORDERABLES Final Result documented in this encounter Visit Diagnoses Diagnosis Osteoarthritis involving multiple joints on both sides of body- Primary vermin exterminator (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 Spondylosis of thoracolumbar spine Dysuria documented in this encounter Additional Health Concerns Assessment Noted Time PHQ-9 Depression Total Score: 12 025 2:09 PM EST documented as of this encounter Care Teams Cafe Worker Relationship Specialty Start Date End Date Leidy Dunham NP [address] [place] [address] PCP - General Family Medicine 03/31/24 documented as of this encounter
--- OUTSIDE RECORDS SUMMARY | 2024-10-02 15:29 | XMS_ITS | Encounter Summary ---
Author Organization [employer] Address [address] 7[address] [place] [address] Care Team Providers Care Correctional Supply Supervisor Name Role Phone Leidy Dunham SHAYE Primary Care Provider [phone] Encounter Details Date Type Department Care Team [...] AM EDT Office Visit [facility] MEDICINE [address] [place] [address] documented as of this encounter Visit Diagnoses Not on filedocumented in this encounter Additional Health Concerns Assessment Noted Time PHQ-9 Depression Total Score: 12 025 2:09 PM EST documented as of this encounter Care Teams Correctional Supply Supervisor Relationship Specialty Start Date End Date Leidy Dunham NP [address] [place] [address] PCP - General Family Medicine 03/31/24 documented as of this encounter
--- OUTSIDE RECORDS SUMMARY | 2024-10-02 15:30 | XMS_ITS | Encounter Summary ---
Author Organization [employer] Address [address] [place] [address] 7t [place] [address] Care Team Providers Care Title Abstractor Name Role Phone Josette Stuart Primary Care Provider [phone] Josette Stuart Primary Care Provider [phone] Leidy Dunham NP Primary Care Provider [phone] Reason for Visit * Reason Onset Date Comments PT1 03/05/2023 Encounter Details Date Type Department Care Team ([facility] st Contact Info) Description 03/05/2023 Telephone [facility] MEDICINE [address] [place], [place] [phone] Josette Stuart FNP [address] [place], [place] [phone] PT1 Social History Tobacco Use Types Packs/Day [...] 8:15 am Visits: Address: [address], [place] [address] Facility: [facility] [place] Wheel Chair: n/a Wiring Technician Needed: no documented in this encounter Plan of Treatment Upcoming Encounters Date Type Department Care Team (Late st Contact Info) Description 10/20/2024 9:45 AM EDT Office Visit [facility] MEDICINE [address] [place] [address] documented as of this encounter Visit Diagnoses Not on filedocumented in this encounter Additional Health Concerns Assessment Noted Time PHQ-9 Depression Total Score: 2 12/08/19 23 1:16 PM EDT documented as of this encounter Care Teams Title Abstractor Relationship Specialty Start Date End Date Josette Stuart FNP [address] [place] [address] PCP - General Family Medicine 04/30/22 01/27/24 Josette Stuart FNP [address] [place] [address] PCP - General Family Medicine 01/28/24 03/30/24 Leidy Dunham NP [address] [place] [address] PCP - General Family Medicine 03/31/24 documented as of this encounter
--- OUTSIDE RECORDS SUMMARY | 2024-10-02 15:30 | XMS_ITS | Clinical Summary ---
Author Organization [facility] Address [address] [place] [address] [address] [place] [address] Care Team Providers Care Spiral Runner Name Role Phone Roly Leidy SHAYE Primary Care Provider [phone] Allergies Active Allergy Reactions Criticality Noted Date [...] eorder (will not trigger notification to Pharmacy)) sulfamethoxazo le-trimethopri m (Bactrim DS) 800-160 MG tablet Take 1 tablet by mouth 2 times daily for 3 days. 6 tablet 025 2024 fluconazole (Diflucan) 150 MG tablet Take 1 tablet (150 mg) by mouth 1 (one) time for 1 dose. 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 04/29 Overview (07/09/2024): Associated Dx: OA bilat hips, s/p L hip replacement Rx: Tramadol 50mg BID PRN Last UNDRAPED ARTIST MODEL agreement: 02/14/24 Tier II (UNDRAPED ARTIST MODEL visit every 3 months) History of abnormal cervical Pap smear Overview (02/06/2024): LEEP completed 2023 Assessment & Plan (02/06/2024 9:56 AM EDT): In care with CELL BUILDER Hiatal hernia 02/06/2024 Assessment & Plan (02/06/2024 9:52 AM EDT): Repair, reports small hiatal hernia reoccurrence, followed by GI, daily PPI controls symptoms Low acid diet reviewed Encounter for wellness examination in adult 08/2023 Overview (02/06/2024): Breast CA: Mammogram completed 10/21/23 birads 1 Cervical CA: In care with alvarado CELL BUILDER, cone leep last week Colon CA: EGD/ [...] (01/28/2024 3:34 PM EDT): In care with [facility] has psychiatrist Increased urinary frequency 08/01/2023 [...] (02/06/2024 9:55 AM EDT): 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 Hyperlipidemia 02/05/2023 Assessment & Plan (02/06/2024 [...] weeks Continue amlodipine 10 mg, and lisinopril/hydrochlorothiazide 17/07.5 Osteoarthritis involving mul tiple joints on both sides of body 09/26/2022 Assessment & Plan (09/27/2024 7:43 PM EST): -Good engagement and participation with Group Medical Visit model -Encouraged multifactorial approach to pain control including pharm and non- pharm modalities -UTOX and Pill count as expected Assessment & Plan (07/09/2024 5:32 PM EST): [...] Encounters Date Type Department Care Team Description 09/30/2024 Telephone [facility] MED & PEDS [address] [place] [address] Aria Anderson FNP Lab Orders 09/22/2024 9:45 AM EST Office Visit [address] [address] [place], Aria, SEASONAL DELIVERY DRIVER Osteoarthritis involving multiple joints on both sides of body (Primary Dx); prison (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; Spondylosis of thoracolumbar spine; Dysuria 09/22/2024 Travel 09/07/2024 1:45 PM EST Office Visit [address] [address] Leidy Dunham NP Attention deficit hyperactivity disorder (ADHD), unspecified ADHD type (Primary Dx); Gastroesophageal reflux disease, unspecified whether esophagitis present; Low back pain, non-specific; Gastroesophageal reflux disease with esophagitis without hemorrhage; Hypertension, unspecified type; Hypothyroidism, unspecified type; Shortness of breath; Obesity, Class I, BMI 30-34.9; Acute dilatation of stomach; Postsurgical malabsorption, not elsewhere classified; Toe pain, left 09/07/2024 Orders Only [address] [address] Leidy Dunham NP 09/07/2024 Travel 09/03/[address] [address] Lorraine Garcia RN 08/30/2024 Orders Only GENERIC EXTERNAL DATA DEPARTMENT Provider, Generic External Data 08/27/[address] [address] Masha Mcgrath [place] Chart Prep 08/25/2024 9:45 AM EST Office Visit [address] [address] [place], Aria, SEASONAL DELIVERY DRIVER Osteoarthritis involving multiple joints on both sides of body (Primary Dx); prison (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; Spondylosis of thoracolumbar spine 08/25/2024 Travel 08/13/2024 Orders Only [facility] External Provider, [facility] 08/10/[address] [address] Leiyd Dunham NP Low back pain, non-specific (Primary Dx) 08/04/[address] [address] Lorraine Garcia RN 07/23/2024 9:40 AM EST Office Visit [facility] W[facility]IN [facility] [address] [place] [address] Mariluz Ritter MD Epigastric pain (Primary Dx); Gastroesophageal reflux disease, unspecified whether esophagitis present 07/07/2024 11:00 AM EST Office Visit [facility] MEDICINE [address] [place] [address] Aria Anderson FNP Osteoarthritis involving multiple joints on both sides of body (Primary Dx); 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 07/07/2024 Travel from Last 3 Months Immunizations Name Administration [...] 10:37 AM EDT Sexual Orientation Straight 02/02/2023 7 :55 AM EDT Last Filed Vital Signs Vital [...] Description 10/20/2024 9:45 AM EDT Office Visit [facility] MEDICINE [address] [place] [address] Health Maintenance Due Date Last Done Comments CT Colonography 1970 FIT DNA/Cologuard 1970 FIT 1970 FOBT 1970 Sigmoidoscopy 1970 Pneumococcal Vaccine: 50+ Years (1 of 2 - PCV) 1987 Zoster Vaccines (1 of 2) 2018 DTaP/Tdap/Td Vaccines (1 - Tdap) 04/28/2022 04/27/2022, 02/10/2017 Cervical Cancer Screening 02/12/2023 HPV/Cotest 02/12/2023 06/04/2022 Pap Smear 02/12/2023 06/04/2022 Dental Oral Exam 11/21/2023 05/21/2023 Dental Prophylaxis 11/21/2023 05/21/2023 COVID-19 Vaccine ( season) 2024 02/28/2022, 09/14/2021, [...] 08/13/2017, 03/14/2017, 02/10/2017 HIV Screening Completed 09/14/2020 Hepatitis C Screening Completed 09/07/2024 HIB Vaccines Aged Out No longer eligi [...] DRUG SCREEN Routine 09/22/2024 1:44 PM EST prison (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 T4, FREE Routine 09/07/2024 2:52 PM EST COMPLETE BLOOD COUNT MAN DIF Routine 09/07/2024 2:52 PM EST HEMOGLOBIN A1C Routine 09/07/2024 2:52 PM EST Hypertension, unspecified type Shortness of breath Obesity, Class I, BMI 30-34.9 Postsurgical malabsorption, not elsewhere classified IRON AND TOTAL IRON BINDING CAPACITY Routine 09/07/2024 2:52 PM EST Hypothyroidism, unspecified type Acute dilatation of stomach CBC WITH AUTO DIFFERENTIAL Routine 09/07/2024 2:52 PM EST Hypothyroidism, unspecified type COMPREHENSIVE METABOLIC PANEL Routine 09/07/2024 2:52 PM EST Shortness of breath TSH W/REFLEX TO FT4 Routine 09/07/2024 2 :52 PM EST Hypothyroidism, unspecified type HEPATITIS C AB W/REFL TO HCV RNA, QN, PCR Routine 09/07/2024 2:52 PM EST Encounter for wellness examination in adult US ABDOMEN LIMITED Routine 08/30/2024 7: 27 [...] DRUG SCREEN Routine 08/25/2024 1:56 PM EST prison (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 XR LUMBAR SPINE 2-3 VIEWS Routine 08/13/2024 3:40 PM EST XR THORACIC SPINE 3 VIEWS Routine 08/13/2024 3:40 PM EST POCT HEMOGLOBIN Routine 07/23/2024 10:21 AM EST Gastroesophageal reflux disease, unspecified whether esophagitis present Epigastric pain POCT MAU-14 URINE DRUG SCREEN Routine 07/07/2024 1:58 PM EST prison (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 LIPID PANEL, STANDARD Routine 11/19/2023 4:25 AM EDT BI MAMMOGRAM SCREENING TOMOSYNTHESIS BILATERAL Routine 10/21/2023 12:25 PM EDT PROPHYLAXIS - ADULT Routine 05/21/2023 1 :00 PM EDT Dental calculus INTRAORAL - COMPLETE SERIES OF RADIOGRAPHIC IMAGES Routine 05/21/2023 1:00 [...] Urine Drug Screen (09/22/2024 1:44 PM EST) Only the most recent of3 resultswithin the time period is included. THC Positive Urine Urine specimen obtained by clean catch procedure / Unknown 09/22/2024 1:44 PM EST Krista Brown, RN - 09/22/2024 1:44 PM EST UTOX cup Lot#[id number] Exp. 03/17/26 Internal Pass Control Aria Anderson [facility] POINT OF CARE TEST ENTER/EDIT ORDERABLES Final Result * (ABNORMAL) Complete Blood Count Manual Diff (09/07/2024 2:52 PM EST) Only the most recent of2 resultswithin the time period is included. White Blood Count 11.5(H) 4.8 - 10.8 X10*3/uL [facility] Red Blood Count 4.22 4.20 - 5.50 X10*6/uL [facility] Hemoglobin 11.6(L) 12.0 - 16.0 g/dl [facility] Hematocrit 34.6(L) 37.0 - 47.0 % [facility] Mean Corpuscular Volume 82.0 80.0 - 98.0 fL [facility] Mean Corpuscular Hemoglobin 27.5 27.0 - 33.0 pg [facility] Mean Corpuscular HGB Conc 33.5 31.0 - 35.0 g/dl [facility] Red Cell Distribution Width 15.4 11.0 - 16.0 % [facility] Platelet Count 349 160 - 400 X10*3/uL [facility] Mean Platelet Volume 11.3 9.4 - 12.3 fL [facility] NRBC Pct Auto 0.0 0.0 - 0.2 /100WBC [facility] NRBC Abs Auto 0.000 0.0 - 0.012 X10*3/uL [facility] Neutrophils % Manual 52 45 - 73 % [facility] Band Neutrophils Percent 3 3 - 5 % [facility] Lymphocytes Percent Manual 32 20 - 40 % [facility] Monocytes Percent Manual 12(H) 2 - 11 % [facility] Myelocytes 1 % [facility] NEUTROPHILS ABSOLUTE MANUAL 6.3 2.0 - 8.3 X10*3/uL [facility] LYMPHOCYTES ABSOLUTE MANUAL 3.7 1.2 - 4.9 X10*3/uL [facility] MONOCYTES ABSOLUTE MANUAL 1.4(H) 0.1 - 1.2 X10*3/uL [facility] Absolute Myelocytes 0.1 X10*/uL [facility] Platelet Estimate NORMAL NORMAL [facility] Platelet Morphology Comment NORMAL [facility] RBC Morphology NORMAL [facility] 09/07/2024 2:52 PM EST 09/07/2024 4:02 PM EST us Leidy Dunham NP LAB BLOOD ORDERABLES Final Resul t [facility] [address] [place] [address] [phone] * (ABNORMAL) TSH W/Reflex to FT4 (09/07/2024 2:52 PM EST) TSH reflex Free T4 >100.00(H) 0.32 - 4.0 uIU/mL [facility] Blood Venous blood specimen / Unknown 09/07/2024 2:52 PM EST 09/07/2024 4:02 PM EST us Leidy Dunham ORNAMENTAL IRONWORKING SUPERVISOR LAB BLOOD ORDERABLES Final Resul t [facility] [address] [place] [address] [phone] * (ABNORMAL) CBC auto differential (09/07/2024 2:52 PM EST) White Blood Count 11.5(H) 4.8 - 10.8 X10*3/uL [facility] Red Blood Count 4.22 4.20 - 5.50 X10*6/uL [facility] Hemoglobin 11.6(L) 12.0 - 16.0 g/dl [facility] Hematocrit 34.6(L) 37.0 - 47.0 % [facility] Mean Corpuscular Volume 82.0 80.0 - 98.0 fL [facility] Mean Corpuscular Hemoglobin 27.5 27.0 - 33.0 pg [facility] Mean Corpuscular HGB Conc 33.5 31.0 - 35.0 g/dl [facility] Red Cell Distribution Width 15.4 11.0 - 16.0 % [facility] Platelet Count 349 160 - 400 X10*3/uL [facility] Mean Platelet Volume 11.3 9.4 - 12.3 fL [facility] Neutrophils Percent Auto 48.8 45 - 73 % [facility] Imm Gran Pct Auto 6.9(H) 0.0 - 0.4 % [facility] Lymphocytes Percent Auto 32.5 20 - 40 % [facility] Monocytes Percent Auto 8.1 2 - 11 % [facility] Eosinophils Percent Auto 2.6 0 - 4 % [facility] Basophils Percent Auto 1.1 0 - 2 % [facility] NRBC Pct Auto 0.0 0.0 - 0.2 /100WBC [facility] Neutrophils Absolute Auto 5.6 2.0 - 8.3 x10*3/uL [facility] Imm Gran Abs Auto 0.79(H) 0.00 - 0.03 X10*3/uL [facility] Lymphocytes Absolute Auto 3.7 1.2 - 4.9 X10*3/uL [facility] Monocytes Absolute Auto 0.9 0.1 - 1.2 X10*3/uL [facility] Eosinophils Absolute Auto 0.3 0.0 - 0.4 X10*3/uL [facility] Basophils Absolute Auto 0.1 0.0 - 0.2 X10*3/uL [facility] NRBC Abs Auto 0.000 0.0 - 0.012 X10*3/uL [facility] Blood Venous blood specimen / Unknown 09/07/2024 2:52 PM EST 09/07/2024 4:02 PM EST Leidy Dunahm NP LAB BLOOD ORDERABLES Edited Resu lt - Final Performing Organization Address City/[facility]/ZIP Co de Phone Number [facility] [address], [place] [phone] * Hepatitis C Antibody with Reflex to HCV, RNA, Quantitative, Real-Time PCR (09/07/2024 2:52 PM EST) Hepatitis C Antibody Nonreactive Nonreactive [facility] Comment:Antibodies to HCV no t detected; does not exclude early acuteHCV infection. Blood Venous blood specimen / Unknown 09/07/2024 2:52 PM EST 09/07/2024 4:02 PM EST Leidy Dunham NP LAB BLOOD ORDERABLES Final Resul t [facility] [address] [place] [phone] * Iron And Total Iron Binding Capacity (09/07/2024 2:52 PM EST) Iron 40 30 - 160 mcg/dL [facility] Total Iron Binding Capacity 259 228 - 428 mcg/dL [facility] Percent Iron Saturation 15 15 - 50 % [facility] Unsaturated Iron Binding 219 ug/dL [facility] Blood Venous blood specimen / Unknown 09/07/2024 2:52 PM EST 09/07/2024 4:02 PM EST Leidy Dunham ORNAMENTAL IRONWORKING SUPERVISOR LAB BLOOD ORDERABLES Final Resul t Performing Organization Address [facility] Co de Phone Number [facility] [address] [place] [phone] * T4, Free (09/07/2024 2:52 PM EST) Free T4 (Free Thyroxine) 0.86 0.71 - 1.85 ng/dL [facility] 09/07/2024 2:52 PM EST 09/07/2024 4:02 PM EST us Leidy Dunham ORNAMENTAL IRONWORKING SUPERVISOR LAB BLOOD ORDERABLES Final Resul t Performing Organization Address City/[facility] de Phone Number [facility] [address] [place] [phone] * Hemoglobin A1c (09/07/2024 2:52 PM EST) Hemoglobin A1c 5.4 <6.0 % [facility] Comment:Hemoglobin A1C Refer ence Range Adults: 4.8 - 6.0 % Non diabetic: < 6.0 % Goal: < 7.0 %Additional Action Suggested: > 8.0 %Note: Hemoglobin A1c results are invalid for patients with abnormal amounts of HbF. Blood transfusions may impact the HbA1c concentration in the patient sample. Estimated Average Glucose 108 mg/dL [facility] Comment:eAG = Estimated ave rage glucose which is %A1C expressed asaverage glucose, using the formula of the Q8T-CkqhserUnwetci Glucose study (ADAG), Diabetes Care, Vol.31,#8,Feb. 2007 Blood Venous blood specimen / Unknown 09/07/2024 2:52 PM EST 09/07/2024 4:02 PM EST us Leidy Dunham NP LAB BLOOD ORDERABLES Final Resul t [facility] [address] [place] [phone] [phone] * (ABNORMAL) Comprehensive Metabolic Panel (09/07/2024 2:52 PM EST) Sodium 141 135 - 145 mmol/L [facility] Potassium 3.3 3.3 - 5.1 mmol/L [facility] Chloride 107 96 - 108 mmol/L [facility] Carbon Dioxide 28 22 - 29 mmol/L [facility] Anion Gap 9(L) 12 - 20 [facility] Urea Nitrogen (BUN) 8(L) 9 - 16 mg/dL [facility] Creatinine, Serum 0.98 0.5 - 1.4 mg/dL [facility] Estimated Glomerular Filt Rate 59 [facility] Comment:Chronic Kidney Disea se: Estimated GFR < 60 mL/min/1.72q3Isuums Kidney Disease: Estimated GFR < 15 mL/min/1.73m2 Glucose 86 60 - 115 mg/dL [facility] Calcium 8.7 8.4 - 10.2 mg/dL [facility] Bilirubin, Total 0.2 0.0 - 1.0 mg/dL [facility] Aspartate Amino Transferase 20 5 - 31 U/L [facility] Alanine Aminotransferase 11 0 - 31 U/L [facility] Total Protein 6.5 6.5 - 8.0 g/dL [facility] Albumin Level 3.7 3.5 - 5.0 g/dL [facility] Alkaline Phosphatase 81 39 - 117 U/L [facility] Blood Venous blood specimen / Unknown 09/07/2024 2:52 PM EST 09/07/2024 4:02 PM EST us Leidy Dunham ORNAMENTAL IRONWORKING SUPERVISOR LAB BLOOD ORDERABLES Final Resul t [facility] [address] [place] [phone] * US Abdomen Limited (08/30/2024 7:27 PM EST) Anatomical Region Laterality Modality Abdomen Ultrasound 08/30/2024 7:27 PM EST Narrative 08/30/2024 7:28 PM EST ? [facility] ?[address] ?[place] [address] ? Ultrasound Report ? Signed ? Patient: Osl,Kristal A ?MR#: [id number] ? : 1970 ?Acct:[id number] ? Age/Sex: 54 / F ?ADM Date: 08/30/24 ? Loc: HO.ED ? Attending Dr: ? Ordering Physician: Karley Culp DO ?? Date of Service: 08/30/24 ?? Procedure(s): US abdomen limited ?? Accession Number(s): [id number] ? cc: Karley Culp DO; Leidy Dunham ORNAMENTAL IRONWORKING SUPERVISOR ? CLINICAL HISTORY: gallstones, n v RUQ [...] ? DD/ 26 ? TD/TT: 08/30/241926 ? Workforce Development Program Director: ? Procedure Note Donotuseinterpreter, Image - 08/30/2024 [place] [address] Ultrasound Report Signed Patient: Kristal Storey AMR#: [id number] : 1970Acct:[id number] Age/Sex: 54 / FADM Date: 08/30/24 Loc: HO.ED Attending Dr: Ordering Physician: Karley Culp DO Date of Service: 08/30/24 Procedure(s): US abdomen limited Accession Number(s): [id number] cc: Karley Culp DO; Leidy Dunham NP [...] in OV> 08/30/241926 DD/ 26 TD/TT: 08/30/241926 Workforce Development Program Director: us [facility] External Provider IMG US PROCEDURES Edited Result - Final * SARS-CoV-2 RNA, Influenza A/B, and RSV RNA, Ql NAAT (08/30/2024 5:47 PM EST) Influenza A PCR NEGATIVE Negative [facility] Influenza B PCR NEGATIVE Negative [facility] Resp Syncy Virus RNA Qual PCR NEGATIVE Negative [facility] SARS COV2 PCR NEGATIVE Negative [facility] Comment:All test results mus t [...] use by authorized laboratories.Testing performed on the [employer] GeneXpert utilizingreal-time RT-PCR.All SARS CoV2 and positive influenza A/B results arereported to [facility]. 08/30/2024 5:47 PM EST 08/30/2024 5:50 PM EST Generic External Data Provider LAB MICROBIOLOGY - GENERAL ORDERABLES Final Result [facility] [address] [place] [phone] * CT Abdomen Pelvis w/o Contrast (08/30/2024 5:13 PM EST) Anatomical Region Laterality Modality Body, Pelvis, Abdomen Computed T omography 08/30/2024 5:13 PM EST Narrative 08/30/2024 5:15 PM EST ? [facility] ?[address] ?[place] [address] ? CT Scan Report ? Signed ? Patient: Osl,Kristal A ?MR#: [id number] ? : 1970 ?Acct:[id number] ? Age/Sex: 54 / F ?ADM Date: 02/02/25 ? Loc: HO.ED ? Attending Dr: ? Ordering Physician: Renzo Bedoya MD ?? Date of Service: 08/30/24 ?? Procedure(s): CT abdomen pelvis wo IV con ?? Accession Number(s): [id number] ? cc: Renzo Bedoya MD; Leidy Dunham ORNAMENTAL IRONWORKING SUPERVISOR ? Report Number: ?? [id number]: Total DLP = ??844.00 mGy-cm ? CLINICAL [...] ? DD/ 1713 ? TD/TT: 08/30/241712 ? Workforce Development Program Director: ? Procedure Note Alysejunie, Image - 08/30/[address] [place] [address] [address] Scan Report Signed Patient: Kristal Storey AMR#: [id number] : 1970Acct:[id number] Age/Sex: 54 / FADM Date: 08/30/24 Loc: HO.ED Attending Dr: Ordering Physician: Renzo Bedoya MD Date of Service: 08/30/24 Procedure(s): CT abdomen pelvis wo IV con Accession Number(s): [id number] cc: Renzo Bedoya MD; Leidy Dunham ORNAMENTAL IRONWORKING SUPERVISOR Report Number: [id number]: Total DLP = 844.00 mGy-cm CLINICAL HISTORY: [...] in OV> 08/30/241713 DD/ 12 TD/TT: 08/30/241712 Workforce Development Program Director: [facility] External Provider IMG CT PROCEDURES Edited Result - Final * (ABNORMAL) High Sensitivity Troponin I (08/30/2024 5:06 PM EST) Only the most recent of2 resultswithin the time period is included. TROPONIN I HIGH SENSITIVITY 42.2(H) <3.5 - 17.0 ng/L [facility] Comment:The [place] high sens itivity Troponin-I results should beused in conjunction with other diagnostic information suchas ECG, clinical observations and information, and patientsymptoms to aid in the diagnosis of [place]. 08/30/2024 5:06 PM EST 08/30/2024 5:09 PM EST Generic External Data Provider LAB BLOOD ORDERAB LES Final Result [facility] [address] [place] [phone] * (ABNORMAL) Urinalysis, Complete, with Reflex to Culture (08/30/2024 3:39 PM EST) Color Urine Yellow [facility] Appearance Urine Clear [facility] PH 6.0 5.0 - 9.0 [facility] Glucose Urine UA Negative Negative mg/dL [facility] Urine Blood Negative Negative [facility] Specific [place] - Urine 1.020 1.005 - 1.025 [facility] Urine Protein 300 (3+)(A) Neg-Trace mg/dL [facility] Urine Ketones 40 Negative mg/dL [facility] Nitrite Urine Negative Negative [facility] Leukocyte Esterase Urine Negative Negative [facility] RBC Urine 0-2 0 - 2 /HPF [facility] Urine WBC 0-5 0 - 5 /HPF [facility] Urine Squamous Epithelial Cell 0-2 0 - 2 /HPF [facility] Urine Bacteria None Seen None Seen [facility] Hyaline Casts, Urine 3-5 0 - 2 /LPF [facility] 08/30/2024 3:39 PM EST 08/30/2024 3:41 PM EST Narrative [facility] - 08/30/2024 4:29 PM EST [id number], Clean Catch us Generic External Data Provider LAB URINE ORDERAB LES Final Result [facility] [address] [place] [phone] [phone] * XR Chest 1 View (08/30/2024 2:51 PM EST) Anatomical Region Laterality Modality Chest Radiographic Anna ging 08/30/2024 2:51 PM EST Narrative 08/30/2024 2:52 PM EST ? [facility] ?[address] ?[place] [address] ?XRay Report ? Signed ? Patient: Osl,Kristal A ?MR#: [id number] ? : 1970 ?Acct:[id number] ? Age/Sex: 54 / F ?ADM Date: 08/30/24 ? Loc: HO.ED ? Attending Dr: ? Ordering Physician: Renzo Bedoya MD ?? Date of Service: 08/30/24 ?? Procedure(s): XR chest 1V ?? Accession Number(s): [id number] ? cc: Renzo Bedoya MD; Leidy Dunham ORNAMENTAL IRONWORKING SUPERVISOR ? CLINICAL HISTORY: Chest pain with hematemesis [...] DD/ 50 ? TD/TT: 08/30/24 1451 ? Workforce Development Program Director: ? Procedure Note Donzenaidater, Image - 08/30/[address] [address] XRay Report Signed Patient: Kristal Storey [facility]#: [id number] : [id number]:[id number] Age/Sex: 54 / FADM Date: 08/30/24 Loc: HO.ED Attending Dr: Ordering Physician: Renzo Bedoya MD Date of Service: 08/30/24 Procedure(s): XR chest 1V Accession Number(s): [id number] cc: Renzo Bedoya MD; Leidy Dunham NP [...] OV> 08/30/24 1452 DD/ 1451 TD/TT: 08/30/24 145 Workforce Development Program Director: us [facility] External Provider IMG XR PROCEDURES Edited Result - Final * Lipase (08/30/2024 2:40 PM EST) Lipase 19 8 - 78 U/L NEW [facility] 08/30/2024 2:40 PM EST 08/30/2024 2:50 PM EST us Generic External Data Provider LAB BLOOD ORDERAB LES Final Result Performing Organization Address [facility]/ZIP Co de Phone Number [facility] [address] [place] [phone] * (ABNORMAL) Hepatic Function Panel (08/30/2024 2:40 PM EST) Bilirubin, Total 1.1(H) 0.0 - 1.0 mg/dL [facility] Bilirubin, Direct 0.3 0.0 - 0.5 mg/dL [facility] Aspartate Amino Transferase 28 5 - 31 U/L [facility] Alanine Aminotransferase 11 0 - 31 U/L [facility] Total Protein 8.6(H) 6.5 - 8.0 g/dL [facility] Albumin Level 4.8 3.5 - 5.0 g/dL [facility] Alkaline Phosphatase 87 39 - 117 U/L [facility] 08/30/2024 2:40 PM EST 08/30/2024 2:50 PM EST us Generic External Data Provider LAB BLOOD ORDERAB LES Final Result Performing Organization Address [facility] Co de Phone Number [facility] [address] [place] [phone] * (ABNORMAL) Basic Metabolic Panel (08/30/2024 2:40 PM EST) Sodium 135 135 - 145 mmol/L [facility] Potassium 3.0(L) 3.3 - 5.1 mmol/L [facility] Chloride 99 96 - 108 mmol/L [facility] Carbon Dioxide 19(L) 22 - 29 mmol/L [facility] Anion Gap 20 12 - 20 [facility] Urea Nitrogen (BUN) 24(H) 9 - 16 mg/dL [facility] Creatinine, Serum 1.30 0.5 - 1.4 mg/dL [facility] Creatinine Clr Calc Pharmacy 54.1 [facility] Comment:Provided height and weight: 167.64 cm,88.6 kg.eGFR (calculated from the MDRD study equation) and eCrCl(calculated from the Cockcroft-Gault equation) are based ondifferent parameters and may not yield comparable results.If eCrCl result is absurd, please check patient'sheight/weight. Estimated Glomerular Filt Rate 42 [facility] Comment:Chronic Kidney Disea se: Estimated GFR < 60 mL/min/1.61p1Hhnhts Kidney Disease: Estimated GFR < 15 mL/min/1.73m2 Glucose 132(H) 60 - 115 mg/dL [facility] Calcium 9.8 8.4 - 10.2 mg/dL [facility] 08/30/2024 2:40 PM EST 08/30/2024 2:50 PM EST us Generic External Data Provider LAB BLOOD ORDERAB LES Final Result Performing Organization Address City/State/[facility] Co de Phone Number [facility] [address] [place] [phone] * XR Lumbar Spine 2-3 Views (08/13/2024 3:40 PM EST) Anatomical Region Laterality Modality Spine, L-spine Radiographic Anna ging 08/13/2024 3:40 PM EST Narrative 08/13/2024 4:19 PM EST ? [facility] ?[address] ?[place] [address] ?XRay Report ? Signed ? Patient: Osl,Kristal A ?MR#: [id number] ? : 1970 ?Acct:[id number] ? Age/Sex: 54 / F ?ADM Date: 01/16/25 ? Loc: HO.ED ? Attending Dr: ? Ordering Physician: Lauren Liriano ?? Date of Service: 08/13/24 ?? Procedure(s): XR lumbar spine 2-3V ?? Accession Number(s): [id number] ? cc: Leidy Dunham ORNAMENTAL IRONWORKING SUPERVISOR; Lauren Liriano ? EXAMINATION: ?? XR LUMBOSACRAL [...] DD/ 1540 ? TD/TT: 08/13/24 1600 ? Workforce Development Program Director: ? Procedure Note Ted Alicia - 08/13/[address] [address] XRay Report Signed Patient: Kristal Storey AMR#: [id number] : 1970Acct:[id number] Age/Sex: 54 / FADM Date: 08/13/24 Loc: HO.ED Attending Dr: Ordering Physician: Lauren Liriano Date of Service: 08/13/24 Procedure(s): XR lumbar spine 2-3V Accession Number(s): [id number] cc: Leidy Dunham ORNAMENTAL IRONWORKING SUPERVISOR; Lauren Liriano EXAMINATION: XR LUMBOSACRAL SPINE CLINICAL [...] 08/13/24 1617 DD/ 1540 TD/TT: 08/13/24 1600 Workforce Development Program Director: [facility] External Provider IMG XR PROCEDURES Final Result * XR Thoracic Spine 3 Views (08/13/2024 3:40 PM EST) Anatomical Region Laterality Modality Spine, T-spine Radiographic Anna ging 08/13/2024 3:40 PM EST Narrative 08/13/2024 4:16 PM EST ? [facility] ?[address] ?[place] [address] ?XRay Report ? Signed ? Patient: Osl,Kristal A ?MR#: [id number] ? : 1970 ?Acct:[id number] ? Age/Sex: 54 / F ?ADM Date: 01/16/25 ? Loc: HO.ED ? Attending Dr: ? Ordering Physician: Lauren Liriano ?? Date of Service: 08/13/24 ?? Procedure(s): XR thoracic spine 3V ?? Accession Number(s): [id number] ? cc: Leidy Dunham ORNAMENTAL IRONWORKING SUPERVISOR; Lauren Liriano ? EXAMINATION: ?? XR THORACIC [...] DD/ 1540 ? TD/TT: 08/13/24 1600 ? Workforce Development Program Director: ? Procedure Note Maral, Image - 08/13/2024 [place] [address] XRay Report Signed Patient: Kristal Storey AMR#: [id number] : 1970Acct:[id number] Age/Sex: 54 / FADM Date: 08/13/24 Loc: HO.ED Attending Dr: Ordering Physician: Lauren Liriano Date of Service: 08/13/24 Procedure(s): XR thoracic spine 3V Accession Number(s): [id number] cc: Leidy Dunham ORNAMENTAL IRONWORKING SUPERVISOR; Lauren Liriano EXAMINATION: XR THORACIC SPINE CLINICAL [...] 08/13/24 1613 DD/ 1540 TD/TT: 08/13/24 1600 Workforce Development Program Director: [facility] External Provider IMG XR PROCEDURES Final Result * POCT Hemoglobin (07/23/2024 10:21 AM EST) Hemoglobin 14.1 12.0 - 15.0 Blood 07/23/2024 10:2 1 AM EST Mariluz Ritter MD POINT OF CARE TEST ENTER/EDIT ORDERABLES Final Result * (ABNORMAL) Lipid Panel, Standard (11/19/2023 4:25 AM EDT) Triglycerides 141 <150 mg/dL [facility] Comment:Desirable Triglyceri de: less than 150 mg/dLBorderline High Triglyceride 150-199 mg/dLHigh Triglyceride: 200-499 mg/dLVery High Triglyceride: greater than or equal to 5OO mg/dL Cholesterol 199 <200 mg/dL [facility] Comment:Desirable Cholestero l: less than 200 mg/dLBorderline High Cholesterol: 200-239 mg/dLHigh Cholesterol: greater than 239 mg/dL LDL Cholesterol Calculated 106(H) <100 mg/dL [facility] Comment:Desirable LDL: less than 100 mg/dLNear Optimal/Above Optimal LDL: 110- 129 mg/dLBorderline High LDL: 130-159 mg/dLHigh LDL: 160-189 mg/dLVery High LDL: greater than or equal to 190 mg/dL HDL Cholesterol 65 >40 mg/dL [facility] Comment:Desirable HDL: great er than 40 mg/dL Note: This HDL assay may give artificially low results in patients with liver disease. 11/19/2023 4:25 AM EDT 11/19/2023 4:31 AM EDT us Generic External Data Provider LAB BLOOD ORDERAB LES Final Result Performing Organization Address City/State/[facility] Co de Phone Number [facility] [address] [place] [phone] * BI Mammogram Screening Tomosynthesis Bilateral (10/21/2023 12:25 PM EDT) Anatomical Region Laterality Modality Breast Bilateral Mammography 10/21/2023 12:2 5 PM EDT Narrative 10/28/2023 4:19 PM EDT ? [facility] [place] ? [address] ?[place] [address] ? Mammography Report ? Signed ? Patient: Osl,Kristal A ?MR#: [id number] ? : 1970 ?Acct:[id number] ? Age/Sex: 53 / F ?ADM Date: 03/25/24 ? Loc: HO.MAMMO ? Attending : Josette Stuart ORNAMENTAL IRONWORKING SUPERVISOR ? Ordering Physician: Josette Stuart ORNAMENTAL IRONWORKING SUPERVISOR ?Results: 1Negativ ?? e ? Date of Service: 10/21/23 ?Follow Up: 1 Year From Orig ?? inal Mammogram ? Procedure(s): MM tomosynthesis screening BI ?? Accession Number(s): [id number] ? cc: Josette Stuart ORNAMENTAL IRONWORKING SUPERVISOR ? EXAMINATION: ?? MM SCREENING DIGITAL BREAST [...] by Savanah Gutierrez MD in OV> ? 10/28/231614 ? DD/ ? TD/TT: ? Workforce Development Program Director: ? Procedure Note Maral, Image - 10/28/2023 [facility] [address] [place] [address] Mammography Report Signed Patient: Kristal Storey AMR#: [id number] : 1970Acct:[id number] Age/Sex: 53 / FADM Date: 10/21/23 Loc: HO.MAMMO Attending Dr: Josette Stuart ORNAMENTAL IRONWORKING SUPERVISOR Ordering Physician: Josette Stuart NPResults: 1Negativ e Date of Service: 10/21/23Follow Up: 1 Year From Orig inal Mammogram Procedure(s): MM tomosynthesis screening BI Accession Number(s): [id number] cc: Josette Stuart NP EXAMINATION: MM SCREENING [...] in OV> 10/28/23 1615 DD/ 1225 TD/TT: Workforce Development Program Director: Josette Stuart SEASONAL DELIVERY DRIVER IMG BI PROCEDURES Final Result * (ABNORMAL) [...] with computer assisted technology. CONVERTED [facility]GAC[facility] LABS Retail Sales Specialist : SEE COMMENT CONVERTED [facility]GACY LABS Comment: BLC,CT(ASCP) CT screening location: [address] ??[address] General Categorization: EPITHELIAL CELL ABNORMALITY(A) CONVERTED [facility]GACY LABS HPV nRNA E6/E7 Detected(A) Not Detected [facility]GAC[facility] LAB[facility] Comment: Methodology: Information Assurance-Mediated Amplification This assay detects E6/E7 viral messenger RNA (mRNA) from 14 high-risk HPV types (16,18,31,33,35,39,45,51,52,56,58,59,66,68). ? Cervical sources are required for HPV testing. If a vaginal source from a patient who has had a total hysterectomy with removal of cervix was ?? submitted, please contact the testing laboratory for alternative testing options. ?? For additional information, please refer to http://education.MedTel.com/faq/UXN321x2 (This link if provided for information/ educational purposes only.) Interpretation/R esult: Atypical Squamous Cells of Undetermined Significance (ASC-US)(A) CONVERTED [facility]GACY LABS LMP: NONE GIVEN CONVERTED LEGACY LABS PATHOLOGIST: SEE COMMENT CONVE RTED LEGACY LABS Comment: Africa Shaikh MD, PhD, Board Certified in Anatomic and Clinical Pathology (electronic signature) Consulting Pathologist [facility] [address] [place] [phone] Prev. BX: NONE GIVEN CONVERTED LEGACY LABS Prev. PAP: NONE GIVEN CONVERTE D LEGACY LABS SOURCE: None given CONVERTED LEGACY LABS Statement Of Adequacy: SATISFACTORY FOR EVALUATION CONVERTED LEGACY LABS 06/04/2022 11:1 0 AM EST us Mark Wheeler MD LAB PATHOLOGY ORDERABLES Fin al Result CONVERTED LEGACY LABS * Hm Colonoscopy (11/23/2021 8:53 AM EDT) Colonoscopy Normal Normal Narrative Mirtha Everett - 11/23/2021 8:53 AM EDT Recommended 10 year follow up ( [facility] ) Historical Provider HEALTH MAINTENANCE Edited Result - Final * HIV AB/AG (09/14/2020 8:55 AM EST) HIV AB/AG Nonreactive Nonreactive [facility] Comment: HIV-1 p24 Ag and/or [...] detection of this assay. ?? [employer] [place] [employer] Nurse HIV Ag/Ab Combo assay result and supplemental assay results should be interpreted in conjunction with the patient's clinical presentation, history and other laboratory results. ??If the results are inconsistent with clinical evidence, additional testing is suggested to confirm the result. 09/14/2020 8:55 AM EST Mark Wheeler MD HISTORICAL/NON ORDERABLE LAB S Final Result Performing Organization Address City/[facility]/ZIP Co de Phone Number [facility] [address] from Last 3 Months or Most Recently Relevant to Health Maintenance Insurance [facility] STANDARD .[address] [place], [place] DENTAL-[facility] MEDICAID STAND ADULT Care Teams Spiral Runner Relationship Specialty Start Date End Date Leidy Dunham NP [address] [place] [place] [id number] PCP - General Family Medicine 03/31/24
== END ==
LOC: HO.CARD 13:48
PROVIDERS: PCP Nurse Practitioner Family; Visit Provider Nurse Practitioner Family
DX: I10 Essential (primary) hypertension (principal); R06.02 Shortness of breath; R79.89 Other specified abnormal findings of blood chemistry
CPT/HCPCS: 93306

== ENCOUNTER → 2024-10-02 13:52 | Outpatient (BNV) | payer MEDICARE, MEDICAID, SELFPAY | PROVIDERS: PCP Nurse Practitioner Family; Visit Provider Internal Medicine Cardiovascular Disease | DX: I10 Essential (primary) hypertension (principal); R06.02 Shortness of breath | CPT/HCPCS: 93306 ==

== ENCOUNTER 2024-10-20 13:32 | Outpatient (REF) | payer MEDICARE, MEDICAID, SELFPAY ==
[2024-10-20 13:42] LABS: Appearance Urine Clear; Color Urine Yellow; Glucose Urine UA Negative (Negative); Leukocyte Esterase Urine Small (1+) (Negative); Nitrite Urine Negative (Negative); UMIC TRIGGER UACC YES; Urine Blood Negative (Negative); Urine Ketones Negative (Negative); Urine Protein Negative (Neg-Trace)
[2024-10-20 13:48] LABS: Bacteria Urine None Seen (None Seen); Hyaline Casts Urine 0-2 /LPF (0-2); RBC Urine 0-2 /HPF (0-2); UACC Culture Trigger YES
== END 2024-10-20 13:33 | disposition home or self-care (01) ==
LOC: HO.HHCLNP 13:32
PROVIDERS: Visit Provider Registered Nurse
DX: R39.9 Unspecified symptoms and signs involving the genitourinary system (principal)
CPT/HCPCS: 81001; 87086

== ENCOUNTER 2024-12-23 12:11 | Outpatient (AMB) | payer MEDICARE, MEDICAID, SELFPAY ==
--- NOTE | 2024-12-23 12:12 | A.OFFVIS_ITS ---
Vital Signs 12/23/24 12:18 Height 5 ft 6 in Weight 209 lb BMI 33.7 BP 168/98 H Blood Pressure Location Lt brachial Position Sitting Pulse 74 Pulse Source Pulse Oximeter Pulse Oximetry (%) 100 Oxygen Delivery Method Room Air Intake Visit Reasons: Gastroesophageal reflux disease (GERD)/Marit[place] pt Intake Note: ESTABLISHED PATIENT for mgmt of GERD. MAYUR w/ FAVIOLA 2021. CC: C.O. multiple episodes of hematemesis, melena, N+V, GERD. Pt reports that she has been doing better over the last 2 mos without any additional episodes of hematemesis or melena. Pt has only been consuming liquids since just after ED admission in 2024. Pharmacy; [facility] Allergies Penicillins Allergy (Severe, Verified 12/23/24 12:12) Anaphylaxis HPI HPI Gastroesophageal reflux disease (GERD)/Maritza pt: Details: LAST VISIT WITH SUMIT TIRADO 12/12/21 A very pleasant extremely anxious 51-year-old female followed up after recent EGD colonoscopy with Dr. Barney. She has already been evaluated by thoracic surgery and is awaiting surgical date. She is very receptive and agrees to follow as recommended with Thoracic-surgery. We will follow-up accordingly. We discussed diverticulosis/diverticulitis as well as hemorrhoids. Maintaining high-fiber diet and avoid straining. Recommend asymptomatic colonoscopy 10 years sooner if indicated. TODAY'S VISIT 54 years old female with past medical history of hypokalemia, acute pancreatitis, diverticular disease, pulmonary nodule, paraesophageal hernia, anemia, hypothyroidism, GERD is here today for initial consultation. Patient was previously seen by Sumit Obrien and had upper endoscopy and colonoscopy in 2021. Patient was seen in [facility] ER back in June of 2022 and [place] [facility] [place]. Both times patient had epigastric pain with nausea and vomiting. Patient reports that she was vomiting so hard that she was vomiting blood. Patient had leukocytosis and was going to be admitted and refused. Patient was going to be calling her gastroenterology office. Since discharge from ED patient continues to have epigastric pain and nausea. Patient is mainly ED cough and phlegm all amounts and mostly it with. Patient reports that she herself occasional every day. Patient is currently taking omeprazole twice a day together with sucralfate and she continues to have symptoms. Patient reports that she is moving her bowels, however sometimes he might have frequent bowel movements in the morning, however feeling like she does not empty her bowels completely. Patient reports straining occasionally when having a bowel movement and occasional blood seen after bowel movement and when wiping. Patient was diagnosed with hemorrhoids on colonoscopy in 2021 [facility] Medical History (Updated 12/23/24 @ 19:21 by Vilma Hopkins [facility]) Foreign body (FB) in soft tissue Personal history of nicotine dependence Hyperlipidemia Nausea & vomiting Hypochromic microcytic anemia Obesity due to excess calories Hypothyroidism Osteoarthritis Essential hypertension Surgical History (Updated 12/23/24 @ 12:16 by KAVON Arango) History of hip surgery History of hernia surgery History of shoulder surgery History of tonsillectomy History of colonoscopy History of esophagogastroduodenoscopy (EGD) History of carpal tunnel release Family History Father Lung cancer Mother Congestive heart failure Type 2 diabetes mellitus Social History Household Members: Family Household Members Other:: 2 Housing: House Housing Other:: sober community Do you presently have visiting nurse or other home services: No Unable to assess alcohol history related to: Unknown Alcohol intake: former Comment: patient is 1:1 supervision Patient Tobacco Use Status: Current everyday Tobacco user Tobacco use type: Smokeless Tobacco Years Smoked: 20 Substance Use Type: Marijuana service: No Current occupational status: employed Female Reproductive History Menstrual Age of Menarche: 11 Review of Systems Const Denies weight gain and Denies weight loss ENT Reports no additional complaints, Denies dysphagia and Denies odynophagia Card Reports no additional complaints Resp Reports no additional complaints GI Reports abdominal pain, Denies belching, Denies melena, Reports bloating, Denies change in bowel habits, Reports constipation, Denies dysphagia, Denies excessive flatus, Reports dyspepsia, Reports heartburn, Denies diarrhea, Reports loose stools, Reports nausea, Denies odynophagia and Denies vomiting Reports no additional complaints Musc Reports no additional complaints Neuro Reports no additional complaints Psych Reports no additional complaints Endo Reports no additional complaints Physical Exam Vital Signs: Last Vital Signs Pulse 74 12/23/24 12:18 BP 168/98 H 12/23/24 12:18 Pulse Ox 100 12/23/24 12:18 Oxygen Delivery Method Room Air 12/23/24 12:18 BMI result Body Mass Index 33.7 Const General: healthy appearing and no acute distress Nutritional Appearance: obese Orientation/consciousness: patient oriented x3 Resp Effort & Inspection: normal respiratory effort, able to speak in complete sentences, no tracheal deviation and symmetric chest movement Auscultation: clear to auscultation bilaterally Cardio Rate: regular rate GI Inspection: Yes normal to inspection, No distended and Yes obesity Palpation (GI): Soft to palpation, not firm, nontender and No hepatosplenomegaly present Auscultation: normal bowel sounds General: Yes no CVA tenderness Back/Spine/Pelvis Back: no CVA tenderness Skin General skin exam: elasticity normal, turgor normal and dry skin Neuro General: patient oriented x3 Psych Appearance: grossly normal Mental Status: mental status grossly normal Assessment & Plan Assessment & Plan (1) Diverticular disease: Code(s): K57.90 - Diverticulosis of intestine, part unspecified, without perforation or abscess without bleeding Category: Medical (2) Hemorrhoids: Code(s): K64.9 - Unspecified hemorrhoids Category: Medical Qualifiers: Hemorrhoid type: unspecified Qualified Code(s): K64.9 - Unspecified hemorrhoids (3) Abdominal pain: Comment: Chronic , intermittent Epigastric pain Code(s): R10.9 - Unspecified abdominal pain Category: Medical Qualifiers: Abdominal location: epigastric Qualified Code(s): R10.13 - Epigastric pain (4) Nausea & vomiting: Comment: Intermittent Code(s): R11.2 - Nausea with vomiting, unspecified Category: Medical Qualifiers: Vomiting type: unspecified Qualified Code(s): R11.2 - Nausea with vomiting, unspecified (5) Postprandial epigastric pain: Code(s): R10.13 - Epigastric pain (6) Postprandial abdominal bloating: Code(s): R14.0 - Abdominal distension (gaseous) Plan History of acute pancreatitis. Patient reports upper abdominal pain will send her to do more labs. Lipase, liver panel, thyroid study, vitamin-D, B12, folate and transglutaminase will be checked. Will check pancreatic a last days and will check H pylori. Patient will start taking Nexium in the morning and stop omeprazole. She will take start sucralfate in the afternoon and at bedtime. She was encouraged to avoid dietary triggers in late night snacking. Staying upright for minimal 3 hours after meals discussed with patient. Increase fluid intake and activity to promote better bowel motility. Patient will take Dulcolax daily to help her move her bowels better. Patient will follow-up in 3- 4 months, sooner on as needed basis. She is agreeable to per current plan of care and verbalizes understanding of instructions. She was given the opportunity to ask questions and all questions answered. Thank you for allowing me to participate in her care Orders: Orders Lipase Today R10.9 - Unspecified abdominal pain Liver Panel Today R74.01 - Elevation of levels of liver transaminase levels TSH reflex Free T4 Today K59.00 - Constipation, unspecified Vitamin D 25-OH (D2 and D3) Today E55.9 - Vitamin D deficiency, unspecified H pylori Ag Stool Today K21.9 - Gastro-esophageal reflux disease without esophagitis Pancreatic Elastase-1 Today R10.9 - Unspecified abdominal pain Transglutaminase IgA Today R10.9 - Unspecified abdominal pain Vitamin B12 and Folate Today R19.7 - Diarrhea, unspecified Medications: New esomeprazole magnesium (Nexium) 40 mg PO DAILY 30 caps 2RF K21.9 - Gastro- esophageal reflux disease without esophagitis bisacodyl (Dulcolax (bisacodyl)) 10 mg (2 x 5 mg) PO BEDTIME 180 tabs 4RF Changed From sucralfate (Carafate) 10 mL PO BID@0630,1630 To sucralfate (Carafate) Take it at 2 pm and at bedtime 10 mL PO BID 400 mL 0RF Coding Level of Care Code New Pt Level 4 (76125) Diagnoses Diverticular disease K57.90 Hemorrhoids, unspecified hemorrhoid type K64.9 Hemorrhoid type: unspecified Abdominal pain R10.13 Abdominal location: epigastric Nausea & vomiting R11.2 Vomiting type: unspecified Postprandial epigastric pain R10.13 Postprandial abdominal bloating R14.0 Time Spent (min) 50 Comment 35 minutes spent with patient and additional 15 minutes spent reviewing her records
[2024-12-23 12:18] VITALS: BP 168/98; PULSE 74; O2SAT 100; BMI 33.7
--- OUTSIDE RECORDS SUMMARY | 2024-12-23 12:54 | XMS_ITS | Encounter Summary ---
Author Organization [employer] Address [address] [facility] [address] [place] [address] Care Team Providers Care School Vocational Educator Name Role Phone Josette Stuart Primary Care Provider [phone] Josette Stuart Primary Care Provider [phone] Leidy Dunham NP Primary Care Provider [phone] Encounter Details Date Type Department Care Team (Late st Contact Info) Description 05/07/2023 Abstract [facility] [address] [place] [address] Mirtha Everett Social History Tobacco Use Types [...] Care Team (Late st Contact Info) Description 01/19/2025 9:45 AM EDT Office Visit [facility] [address] [place] [address] documented as of this encounter Procedures Procedure [...] documented as of this encounter Care Teams School Vocational Educator Relationship Specialty Start Date End Date Josette Stuart FNP [address] [place] [address] PCP - General Family Medicine 04/30/22 01/27/24 Josette Stuart FNP [address] [place] [address] PCP - General Family Medicine 01/28/24 03/30/24 Leidy Dunham NP [address] [place] [address] PCP - General Family Medicine 03/31/24 documented as of this encounter
== END 2024-12-23 12:45 | disposition home or self-care (01) ==
LOC: HO.HGI 12:11
PROVIDERS: PCP Nurse Practitioner Family; Visit Provider Nurse Practitioner Family
DX: K57.90 Diverticulosis of intestine, part unspecified, without perforation or abscess without bleeding (principal); K64.9 Unspecified hemorrhoids; R10.13 Epigastric pain; R11.2 Nausea with vomiting, unspecified; R14.0 Abdominal distension (gaseous)
CPT/HCPCS: 99204

== ENCOUNTER 2024-12-23 12:11 | Outpatient (REF) | payer MEDICARE, MEDICAID, SELFPAY ==
[2024-12-23 13:14] LABS: MANUAL DIFF FLAG NO
[2024-12-23 13:49] LABS: Basophils Absolute Auto 0.1 X10*3/uL (0.0-0.2); Basophils Percent Auto 0.7 % (0-2); Eosinophils Absolute Auto 0.2 X10*3/uL (0.0-0.4); Hematocrit 38.4 % (37.0-47.0); Hemoglobin 12.3 g/dl (12.0-16.0); Imm Gran Abs Auto 0.02 X10*3/uL (0.00-0.03); Imm Gran Pct Auto 0.2 % (0.0-0.4); Lymphocytes Absolute Auto 2.8 X10*3/uL (1.2-4.9); Lymphocytes Percent Auto 32.4 % (20-40); Mean Corpuscular Hemoglobin 25.8 pg (27.0-33.0); Mean Corpuscular Volume 80.7 fL (80.0-98.0); Monocytes Absolute Auto 0.7 X10*3/uL (0.1-1.2); Monocytes Percent Auto 7.6 % (2-11); Neutrophils Absolute Auto 4.9 x10*3/uL (2.0-8.3); Neutrophils Percent Auto 57.1 % (45-73); Platelet Count 321 X10*3/uL (160-400); Red Blood Count 4.76 X10*6/uL (4.20-5.50); Red Cell Distribution Width 14.5 % (11.0-16.0); White Blood Count 8.5 X10*3/uL (4.8-10.8)
[2024-12-23 14:11] LABS: Appearance Urine Clear; Color Urine Yellow; Glucose Urine UA Negative (Negative); Leukocyte Esterase Urine Moderate (2+) (Negative); Nitrite Urine Negative (Negative); UMIC TRIGGER UACC YES; Urine Blood Negative (Negative); Urine Ketones Negative (Negative); Urine Protein Trace mg/dL (Neg-Trace)
[2024-12-23 14:32] LABS: Alanine Aminotransferase 21 U/L (0-31); Albumin Level 4.6 g/dL (3.5-5.0); Alkaline Phosphatase 87 U/L (39-117); Anion Gap 14 (12-20); Aspartate Amino Transferase 28 U/L (5-31); Bilirubin Direct 0.2 mg/dL (0.0-0.5); Bilirubin Total 0.6 mg/dL (0.0-1.0); Blood Urea Nitrogen 14 mg/dL (9-16); Calcium 9.7 mg/dL (8.4-10.2); Carbon Dioxide 26 mmol/L (22-29); Chloride 104 mmol/L (96-108); Estimated Glomerular Filt Rate 51; Glucose Random 92 mg/dL (60-115); Lipase 15 U/L (8-78); Sodium 140 mmol/L (135-145); TSH reflex Free T4 2.27 uIU/mL (0.32-4.0); Total Protein 7.6 g/dL (6.5-8.0)
[2024-12-23 14:53] LABS: Folate 11.9 ng/mL (> or = 4.0); Vitamin B12 379 pg/mL (200-900)
[2024-12-23 14:56] LABS: UACC Culture Trigger YES
[2024-12-23 14:57] LABS: RBC Urine 0-2 /HPF (0-2)
[2024-12-23 14:58] LABS: Bacteria Urine 2+ (None Seen); Hyaline Casts Urine 0-2 /LPF (0-2)
[2024-12-24 20:48] LABS: Transglutaminase IgA <1.0 U/mL
[2024-12-27 14:58] LABS: Vitamin D 25-OH, D2 <4 ng/mL; Vitamin D 25-OH, D3 33 ng/mL; Vitamin D 25-OH, Total 33 ng/mL (30-100)
== END 2024-12-23 12:12 | disposition home or self-care (01) ==
LOC: HO.LAB 12:11
PROVIDERS: General Practice; PCP Nurse Practitioner Family; Visit Provider Nurse Practitioner Family
DX: Z00.00 Encounter for general adult medical examination without abnormal findings (principal); K57.90 Diverticulosis of intestine, part unspecified, without perforation or abscess without bleeding; E03.9 Hypothyroidism, unspecified; R35.0 Frequency of micturition; R10.9 Unspecified abdominal pain; R74.01 Elevation of levels of liver transaminase levels; E55.9 Vitamin D deficiency, unspecified; R19.7 Diarrhea, unspecified; R11.2 Nausea with vomiting, unspecified; K64.9 Unspecified hemorrhoids; R10.13 Epigastric pain; R14.0 Abdominal distension (gaseous)
CPT/HCPCS: 36415; 80053; 81001; 82248; 82306; 82607; 82746; 83690; 84443; 85025; 86364; 87086; 99202

== ENCOUNTER 2025-01-18 16:05 | Outpatient (REF) | payer MEDICARE, MEDICAID, SELFPAY ==
--- OUTSIDE RECORDS SUMMARY | 2025-01-18 17:29 | XMS_ITS | Encounter Summary ---
Author Organization [employer] Address [address] [facility] [address] [place] [address] Care Team Providers Care Administrative Fellow Name Role Phone Josette Stuart Primary Care Provider [phone] Josette Stuart Primary Care Provider [phone] Leidy Dunham NP Primary Care Provider [phone] Encounter Details Date Type Department Care Team (Late st Contact Info) Description 05/07/2023 Abstract [facility] [address] [place] [address] Mirtha Everett Social History Tobacco Use Types [...] Description 01/19/2025 9:45 AM EDT Office Visit [facility] [address] [place] [address] documented as of this encounter Procedures Procedure [...] documented as of this encounter Care Teams Administrative Fellow Relationship Specialty Start Date End Date Josette Stuart FNP [address] [place] [address] PCP - General Family Medicine 04/30/22 01/27/24 Josette Stuart FNP [address] [place] [address] PCP - General Family Medicine 01/28/24 03/30/24 Leidy Dunham NP [address] [place] [address] PCP - General Family Medicine 03/31/24 documented as of this encounter
[2025-01-18 18:02] LABS: Bacterial Vaginosis PCR NEGATIVE (Negative); Candida Group PCR NOT DETECTED (Not Detect); Candida glab krusei PCR NOT DETECTED (Not Detect); Trichomonas vaginalis PCR NOT DETECTED (Not Detect)
[2025-01-18 18:33] LABS: CT PCR NOT DETECTED (Not Detect.); NG PCR NOT DETECTED (Not Detect.)
== END 2025-01-18 16:06 | disposition home or self-care (01) ==
LOC: HO.HHCLNP 16:05
PROVIDERS: Visit Provider Internal Medicine
DX: R39.9 Unspecified symptoms and signs involving the genitourinary system (principal); N76.0 Acute vaginitis
CPT/HCPCS: 81515; 87086; 87147; 87491; 87591

== ENCOUNTER 2025-01-19 12:57 | Outpatient (REF) | payer MEDICARE, MEDICAID, SELFPAY ==
--- OUTSIDE RECORDS SUMMARY | 2025-01-19 14:37 | XMS_ITS | Encounter Summary ---
Author Organization [employer] Address [address] [facility] 7t [place] [address] Care Team Providers Care Janitor Custodian Name Role Phone Josette Stuart Primary Care Provider [phone] Josette Stuart Primary Care Provider [phone] Leidy Dunham NP Primary Care Provider [phone] Encounter Details Date Type Department Care Team (Late st Contact Info) Description 05/07/2023 Abstract [facility] [address] [place] [address] Mirtha Everett Social History Tobacco Use Types [...] Care Team (Late st Contact Info) Description 03/23/2025 9:45 AM EDT Office Visit [facility] [address] [place] [address] documented as of this encounter Procedures Procedure [...] documented as of this encounter Care Teams Janitor Custodian Relationship Specialty Start Date End Date Josette Stuart FNP [address] [place] [address] PCP - General Family Medicine 04/30/22 01/27/24 Josette Stuart FNP [address] [place] [address] PCP - General Family Medicine 01/28/24 03/30/24 Leidy Dunham NP [address] [place] [address] PCP - General Family Medicine 03/31/24 documented as of this encounter
[2025-01-22 09:02] LABS: Alphahydroxymidazolam,GCMS Ur NEGATIVE; Alphahydroxytriazolam, GCMS Ur NEGATIVE; Alprazolam, GCMS Urine NEGATIVE; Lorazepam GCMS Urine NEGATIVE; Nordiazepam, GCMS Urine NEGATIVE; Oxazepam, GCMS Urine NEGATIVE; Temazepam, GCMS Urine NEGATIVE
[2025-01-22 09:03] LABS: Aminoclonazepam, GCMS Urine NEGATIVE; Flurazepam Metabolite,GCMS Ur NEGATIVE
== END 2025-01-19 12:58 | disposition home or self-care (01) ==
LOC: HO.HHCLNP 12:57
PROVIDERS: Visit Provider Nurse Practitioner Family
DX: Z79.891 Long term (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 (principal)
CPT/HCPCS: 80346

== ENCOUNTER 2025-04-07 11:43 | Outpatient (REF) | payer MEDICARE, MEDICAID, SELFPAY ==
--- OUTSIDE RECORDS SUMMARY | 2025-04-07 17:40 | XMS_ITS | Encounter Summary ---
Author Organization [employer] Address [address] [facility] [address] 7[address] [place] [address] Care Team Providers Care Storm Door Maker Name Role Phone Leidy Dunham NP Primary Care Provider [phone] Encounter Details Date Type Department Care Team (Late st Contact Info) Description 04/07/2025 5:40 PM EDT Office Visit [facility] [address] [phone] Isaak Oropeza MD [address] [place] [address] [phone] Urinary urgency (Primary Dx); Bacterial vaginosis; Screening examination for STI Social History Tobacco Use Types Packs/Day Years [...] Sign Reading Time Taken Comments Blood Pressure 152/88 04/07/2025 4:50 PM EDT Pulse 80 04/07/2025 4:50 PM EDT Temperature 36.9 C (98.4 F) 04/07/2025 4:50 PM EDT Respiratory Rate 22 04/07/2025 4:50 PM EDT Oxygen Saturation 96% 04/07/2025 4:50 PM EDT Inhaled Oxygen Concentration - - Weight 94.1 kg (207 lb 6.4 oz) 04/07/2025 4:50 P M EDT Height 167.6 cm (5' 6 ) 04/07/2025 4:50 PM EDT Body Mass Index 33.48 04/07/2025 4:50 PM EDT documented in this encounter Progress Notes * Isaak Oropeza MD - 04/07/2025 5:40 PM EDT Subjective History was provided by the patient. Kristal Storey is a 54 y.o. female who presents for evaluation of urinary urgency, yellow vaginal discharge, and vaginal itching for 2 weeks. 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 Denies F/C/N/V/D. Denies abdominal or back pain. Previous LFT within normal (11/2024). Recently had UTI ~3 months ago (UCx Strep pyogenes, treated with Bactrim). States she frequently gets vaginal Candidiasis with antibiotic use. Objective Vitals: 04/07/25 1650 BP: (!) 152/88 Pulse: 80 Resp: 22 Temp: 98.4 ??F (36.9 ??C) TempSrc: Temporal SpO2: 96% Weight: 207 lb 6.4 oz (94.1 kg) Height: 5' 6 (1.676 m) Physical Exam Vitals reviewed. Constitutional: Appearance: Normal appearance. She is normal weight. HENT: Head: Normocephalic and atraumatic. Right Ear: External ear normal. Left Ear: External ear normal. Nose: Nose normal. Mouth/Throat: Mouth: Mucous membranes are moist. Pharynx: Oropharynx is clear. Eyes: Extraocular Movements: Extraocular movements intact. Conjunctiva/sclera: Conjunctivae normal. Pulmonary: Effort: Pulmonary effort is normal. Abdominal: General: Abdomen is flat. There is no distension. Palpations: Abdomen is soft. Tenderness: There is no abdominal tenderness. There is no right CVA tenderness, left CVA tenderness, guarding or rebound. Musculoskeletal: General: Normal range of motion. Cervical back: Neck supple. Skin: General: Skin is warm and dry. Neurological: General: No focal deficit present. Mental Status: She is alert and oriented to person, place, and time. Psychiatric: Mood and Affect: Mood normal. Behavior: Behavior normal. Diagnoses and all orders for this visit: Urinary urgency (Primary) - POCT urinalysis dipstick manually resulted - sulfamethoxazole-trimethoprim (Bactrim DS) 800-160 MG tablet; Take 1 tablet by mouth 2 times daily for 5 days. - fluconazole (Diflucan) 150 MG tablet; Take 1 tablet (150 mg) by mouth 1 (one) time per week for 2doses. - Culture, Urine, Routine; Future Bacterial vaginosis - metroNIDAZOLE (Metrogel) 0.75 % vaginal gel; Insert one applicator into vagina at bedtime for 7 nights - Bacterial Vaginosis Panel Screening examination for STI - Chlamydia/N. Gonorrhoeae RNA, TMA, Vaginal Patient presents to [facility] with 2-week duration of urinary urgency, yellow vaginal discharge, and vaginal itching No clinical evidence of acute abdomen Denies back pain POC UA showed Leukocytes In-office Wet Mount showed Clue cells Discussed treatment options Will Rx Bactrim DS 1 tab BID for 5 days Will send out Urine Culture Will Rx Metronidazole 0.75% vaginal suppository nightly for 7 days Will also Rx Diflucan per patient request Previous LFT within normal Potential adverse effects of the medications reviewed Will send out BV panel and GC/CT Patient reports low risk for STI Indications for UC/ER use reviewed Advised to contact the clinic if persistent or worsening symptoms documented in this encounter Plan of Treatment Upcoming Encounters Date Type Department Care Team (Late st Contact Info) Description 06/30/2025 9:00 AM EST Clinical Support [facility] [address] [place] [phone] Krista Guadalupe RN Scheduled Orders Name Type Priority Associated Diagnoses Orde r Schedule Culture, Urine, Routine Microbiology Routine Urinary urgency Expected: 04/07/2025 (Approximate), Expires: 04/07/2026 documented as of this encounter Procedures Procedure Name Priority Date/Time Associated Diagnosis Comments POCT URINALYSIS DIPSTICK Routine 04/07/2025 5:19 PM EDT Urinary urgency BACTERIAL VAGINOSIS PANEL Routine 04/07/2025 4:56 PM EDT Bacterial vaginosis CHLAMYDIA/N. GONORRHOEAE RNA, TMA, UROGENITAL Routine 04/07/2025 4:56 PM EDT Screening examination for STI documented in this encounter Results * (ABNORMAL) POCT urinalysis dipstick manually resulted (04/07/2025 5:19 PM EDT) Color, UA Colorless Clarity, UA Clear Glucose, UA Negative Bilirubin, UA Negative Ketones, UA Negative Spec Grav, UA 1.015 Blood, UA Negative Negative, None Detected pH, UA 6.5 Protein, UA Negative Urobilinogen, UA 0.2 Leukocytes, UA Trace(A) Negative, Rare, Trace Comment:small Nitrite, UA Negative Negative, None Detected Appearance, UA clear QC Media Lot # [id number] Lot# Expiration Date Urine 04/07/2025 5:19 PM EDT us Isaak Oropeza MD POINT OF CARE TEST ENTER/EDIT OR DERABLES Final Result * Chlamydia/N. Gonorrhoeae RNA, TMA, Vaginal (04/07/2025 4:56 PM EDT) CT PCR NOT DETECTED Not Detect. [facility] Comment:A not detected test result does not exclude the possibilityof infection because test results can be affected byimproper specimen collection, concurrent antibiotic therapy,or the number of organisms in the specimen which may bebelow the sensitivity of the test. As with many diagnostictests, results from the Xpert CT/NG assay should beinterpreted in conjunction with other laboratory andclinical data available to the clinician.Xpert CT/NG performance has not been evaluated in patientsless than 14 years of age. The assay should not be used forthe evaluationof suspected sexual abuse or for other medico-legalindications. Additional testing is recommended in anycircumstance when false positive or false negative resultscould lead to adverse medical, social or psychologicalconsequences. NG PCR NOT DETECTED Not Detect. [facility] Comment:A not detected test result does not exclude the possibilityof infection because test results can be affected byimproper specimen collection, concurrent antibiotic therapy,or the number of organisms in the specimen which may bebelow the sensitivity of the test. As with many diagnostictests, results from the Xpert CT/NG assay should beinterpreted in conjunction with other laboratory andclinical data available to the clinician.Xpert CT/NG performance has not been evaluated in patientsless than 14 years of age. The assay should not be used forthe evaluationof suspected sexual abuse or for other medico-legalindications. Additional testing is recommended in anycircumstance when false positive or false negative resultscould lead to adverse medical, social or psychologicalconsequences. Swab Vaginal structure / Unknown 04/07/2025 4:56 PM EDT 04/08/2025 11:47 AM EDT us Isaak Oropeza MD LAB MICROBIOLOGY - GENERAL ORDER DENNIS Final Result Performing Organization Address [facility] Co de Phone Number [facility] [address] [place] [address] [phone] * (ABNORMAL) Bacterial Vaginosis Panel (04/07/2025 4:56 PM EDT) TRICHOMONAS VAGINALIS DETECTION BY PCR NOT DETECTED Not Detect [facility] BACTERIAL VAGINOSIS DETECTION BY PCR POSITIVE(A) Negative [facility] Comment:The BV organism targ ets of the Xpert Xpress MVP test can becommensal in women; Xpert Xpress MVP positive results forbacterial vaginosis should be considered in conjunction withother clinical and patient information to determine thedisease status. Organisms that are not detected by the XpertXpress MVP test have also been reported to be associatedwith BV and aerobic vaginitis.The Xpert Xpress MVP test performance has not been evaluatedin patients under the age of 14. GAIL GROUP DETECTION BY PCR NOT DETECTED Not Detect [facility] Gail glab krusei PCR NOT DETECTED Not Detect [facility] Swab Vaginal structure / Unknown 04/07/2025 4:56 PM EDT 04/08/2025 11:47 AM EDT Isaak Oropeza MD LAB MICROBIOLOGY - GENERAL ORDER DENNIS Final Result Performing Organization Address [facility] Co de Phone Number [facility] [address] [place] [phone] documented in this encounter Visit Diagnoses Diagnosis Urinary urgency- Primary Urgency of urination Bacterial vaginosis Unspecified vaginitis and vulvovaginitis Screening examination for STI documented in this encounter Additional Health Concerns Assessment Noted Time PHQ-9 Depression Total Score: 12 025 2:09 PM EST documented as of this encounter Care Teams Storm Door Maker Relationship Specialty Start Date End Date Leidy Dunham NP [address] [place] [address] PCP - General Family Medicine 03/31/24 documented as of this encounter
[2025-04-08 13:39] LABS: Bacterial Vaginosis PCR POSITIVE (Negative); Candida Group PCR NOT DETECTED (Not Detect); Candida glab krusei PCR NOT DETECTED (Not Detect); Trichomonas vaginalis PCR NOT DETECTED (Not Detect)
[2025-04-08 14:11] LABS: CT PCR NOT DETECTED (Not Detect.); NG PCR NOT DETECTED (Not Detect.)
--- OUTSIDE RECORDS SUMMARY | 2025-04-08 16:09 | XMS_ITS | Encounter Summary ---
Author Organization [employer] Address [address] [facility] 7t [place] [address] Care Team Providers Care Respiratory Care Faculty Name Role Phone Josette Stuart Primary Care Provider [phone] Josette Stuart Primary Care Provider [phone] Leidy Dunham NP Primary Care Provider [phone] Encounter Details Date Type Department Care Team (Late st Contact Info) Description 06/07/2023 Abstract [facility] [address] [place] [address] Tavon Chong DDS [address] [place], [place] [phone] Social History Tobacco Use Types Packs/Day Years [...] Description 06/30/2025 9:00 AM EST Clinical Support [facility] [address] [place] [address] Krista Guadalupe RN documented as of this encounter Visit Diagnoses Not on filedocumented in this encounter Additional Health Concerns Assessment Noted Time PHQ-9 Depression Total Score: 2 12/08/19 23 1:16 PM EDT documented as of this encounter Care Teams Respiratory Care Faculty Relationship Specialty Start Date End Date Josette Stuart FNP [address] [place] [address] PCP - General Family Medicine 04/30/22 01/27/24 Josette Stuart FNP [address] [place] [address] PCP - General Family Medicine 01/28/24 03/30/24 Leidy Dunham NP [address] [place] [address] PCP - General Family Medicine 03/31/24 documented as of this encounter
--- OUTSIDE RECORDS SUMMARY | 2025-04-08 16:09 | XMS_ITS | Encounter Summary ---
Author Organization [employer] Address [address] [facility] [address] [place] [address] Care Team Providers Care Icu Staff Nurse Name Role Phone Leidy Dunham NP Primary Care Provider [phone] Encounter Details Date Type Department Care Team (Latest Contact Info) Description 04/07/2025 Travel Social History Tobacco Use Types Packs/Day [...] Description 06/30/2025 9:00 AM EST Clinical Support [facility] [address] [place] [address] Krista Guadalupe RN documented as of this encounter Visit Diagnoses Not on filedocumented in this encounter Additional Health Concerns Assessment Noted Time PHQ-9 Depression Total Score: 12 025 2:09 PM EST documented as of this encounter Care Teams Icu Staff Nurse Relationship Specialty Start Date End Date Leidy Dunham NP [address] [place] [address] PCP - General Family Medicine 03/31/24 documented as of this encounter
--- OUTSIDE RECORDS SUMMARY | 2025-04-08 16:09 | XMS_ITS | Encounter Summary ---
Author Organization [employer] Address [address] [facility] 7t [place] [address] Care Team Providers Care Production Troubleshooter Name Role Phone Josette Stuart Primary Care Provider [phone] Josette Stuart Primary Care Provider [phone] Leidy Dunham NP Primary Care Provider [phone] Encounter Details Date Type Department Care Team (Late st Contact Info) Description 12/26/2023 Orders Only [facility] [address] [place], [place] [phone] Maryann Stokes MD [address] [place], [place] [phone] Social History Tobacco Use Types Packs/Day Years [...] 9:00 AM EST Clinical Support [facility] [address] [place] [address] Krista Guadalupe, CIARA documented as of this encounter Visit Diagnoses Not on filedocumented in this encounter Additional Health Concerns Assessment Noted Time PHQ-9 Depression Total Score: 2 12/08/19 23 1:16 PM EDT documented as of this encounter Care Teams Production Troubleshooter Relationship Specialty Start Date End Date Josette Stuart FNP [address] [place] [address] PCP - General Family Medicine 04/30/22 01/27/24 Josette Stuart FNP [address] [place] [address] PCP - General Family Medicine 01/28/24 03/30/24 Leidy Dunham NP [address] [place] [address] PCP - General Family Medicine 03/31/24 documented as of this encounter
--- OUTSIDE RECORDS SUMMARY | 2025-04-08 16:09 | XMS_ITS | Encounter Summary ---
Author Organization [employer] Address [address] [facility] 7 [place] [address] Care Team Providers Care Forming Fixer Name Role Phone Josette Stuart Primary Care Provider [phone] Josette Stuart Primary Care Provider [phone] Leidy Dunham NP Primary Care Provider [phone] Reason for Visit * Reason Onset Date Comments dental clearance for surgery 06/17/2023 Encounter Details Date Type Department Care Team (Late st Contact Info) Description 06/17/2023 Telephone [facility] [address] [place], [place] [phone] Tavon Chong DDS [address] [place] [address] dental clearance for surgery Social History Tobacco [...] - 06/17/2023 10:24 AM EST Yojana from [facility] called requesting the form for surgery clearance be sent back to their office. Upon checking chart, there is nothing scanned in. She stated it was sent in on 05/28 onlast date patient was seen. Patient is coming in today. Advised office to re send the clearance form to [phone] so that provider can fill out and send back to fax number listed on clearance form. Patient is being seen today with ERLINDA garcia DR documented in this encounter Plan of Treatment Upcoming Encounters Date Type Department Care Team (Late st Contact Info) Description 06/30/2025 9:00 AM EST Clinical Support [facility] [address] [place] [address] Krista Guadalupe RN documented as of this encounter Visit Diagnoses Not on filedocumented in this encounter Additional Health Concerns Assessment Noted Time PHQ-9 Depression Total Score: 2 12/08/19 23 1:16 PM EDT documented as of this encounter Care Teams Forming Fixer Relationship Specialty Start Date End Date Josette Stuart FNP [address] [place] [address] PCP - General Family Medicine 04/30/22 01/27/24 Josette Stuart FNP [address] [place] [address] PCP - General Family Medicine 01/28/24 03/30/24 Leidy Dunham NP [address] [place] [address] PCP - General Family Medicine 03/31/24 documented as of this encounter
--- OUTSIDE RECORDS SUMMARY | 2025-04-08 16:09 | XMS_ITS | Encounter Summary ---
Author Organization [employer] Address [address] [facility] [address] 7[address] [place] [address] Care Team Providers Care Economic Geographer Name Role Phone Leidy Dunham NP Primary Care Provider [phone] Encounter Details Date Type Department Care Team ([facility] st Contact Info) Description 04/02/2025 Telephone [facility] [address] [place], [place] [phone] Lorraine Garcia RN Social History Tobacco Use Types Packs/Day Years [...] Telephone Encounter - Lorraine Garcia RN - 04/02/2025 4:39 PM EDT Tc to pt to let them know their BP meds are at two separate pharmacies and needs to be transferred to their local one. Pt reports they receive their meds via delivery from [facility] and only has two meds left. Pt reports they they thought all their scripts were transferred over to the pharmacy. Pt advised we'll call the pharmacy to request the transfer and pt verbalized understanding. Tc to [facility] to request the transfer and they report the will contact the other pharmacy to transfer the scripts over. Pt is to follow up with PCP as needed. documented in this encounter Plan of Treatment Upcoming Encounters Date Type Department Care Team (Late st Contact Info) Description 06/30/2025 9:00 AM EST Clinical Support [facility] [address] [place] [address] Krista Guadalupe RN documented as of this encounter Visit Diagnoses Not on filedocumented in this encounter Additional Health Concerns Assessment Noted Time PHQ-9 Depression Total Score: 12 025 2:09 PM EST documented as of this encounter Care Teams Economic Geographer Relationship Specialty Start Date End Date Leidy Dunham NP [address] [place] [address] PCP - General Family Medicine 03/31/24 documented as of this encounter
--- OUTSIDE RECORDS SUMMARY | 2025-04-08 16:09 | XMS_ITS | Encounter Summary ---
Author Organization [employer] Address [address] [facility] 7 [place] [address] Care Team Providers Care Head Of Ethics And Compliance Name Role Phone Leidy Dunham NP Primary Care Provider Reason for Visit * Reason Onset Date Comments Med Refill 02/21/2025 Encounter Details Date Type Department Care Team ([facility] st Contact Info) Description 02/21/2025 Refill [facility] [address] [place], [place] [phone] Leidy Dunham NP [address] [place], [place] [phone] Social History Tobacco Use Types Packs/Day Years [...] Description 06/30/2025 9:00 AM EST Clinical Support [facility] [address] [place] [address] Krista Guadalupe, RN documented as of this encounter Visit Diagnoses Not on filedocumented in this encounter Additional Health Concerns Assessment Noted Time PHQ-9 Depression Total Score: 12 025 2:09 PM EST documented as of this encounter Care Teams Head Of Ethics And Compliance Relationship Specialty Start Date End Date Leidy Dunham NP [address] [place] [address] PCP - General Family Medicine 03/31/24 documented as of this encounter
--- OUTSIDE RECORDS SUMMARY | 2025-04-08 16:09 | XMS_ITS | Encounter Summary ---
Author Organization [employer] Address [address] [facility] [address] [place] [address] Care Team Providers Care Field Staff Name Role Phone Josette Stuart Primary Care Provider [phone] Josette Stuart Primary Care Provider [phone] Leidy Dunham NP Primary Care Provider [phone] Encounter Details Date Type Department Care Team (Late st Contact Info) Description 05/27/2023 Orders Only [facility] AD[facility] [address] [place] [address] Yoel Tam Social History Tobacco Use Types [...] Description 06/30/2025 9:00 AM EST Clinical Support [facility] MED[facility] [address] [place] [address] Krista Guadalupe, RN documented as of this encounter Visit Diagnoses Not on filedocumented in this encounter Additional Health Concerns Assessment Noted Time PHQ-9 Depression Total Score: 2 12/08/19 23 1:16 PM EDT documented as of this encounter Care Teams Field Staff Relationship Specialty Start Date End Date Josette Stuart FNP [address] [place] [address] PCP - General Family Medicine 04/30/22 01/27/24 Josette Stuart FNP [address] [place] [address] PCP - General Family Medicine 01/28/24 03/30/24 Leidy Dunham NP [address] [place] [address] PCP - General Family Medicine 03/31/24 documented as of this encounter
--- OUTSIDE RECORDS SUMMARY | 2025-04-08 16:09 | XMS_ITS | Encounter Summary ---
Author Organization [employer] Address [address] [place] [address] 7 [place] [address] Care Team Providers Care Pattern Fitter Name Role Phone Leidy Dunham NP Primary Care Provider Reason for Visit * Reason Onset Date Comments Med Refill 11/26/2024 Encounter Details Date Type Department Care Team ([facility] Contact Info) Description 11/26/2024 Refill [facility] [address] [place], [place] [phone] Aria Anderson FNP [address] [place], [place] [phone] jail (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 Social History Tobacco Use Types Packs/Day Years [...] Description 06/30/2025 9:00 AM EST Clinical Support [facility] [address] [place] [address] Krista Guadalupe RN documented as of this encounter Visit Diagnoses Diagnosis 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
--- OUTSIDE RECORDS SUMMARY | 2025-04-08 16:09 | XMS_ITS | Encounter Summary ---
Author Organization [employer] Address [address] [facility] 7t [place] [address] Care Team Providers Care Oil And Gas Drafter Name Role Phone Leidy Dunham NP Primary Care Provider [phone] Encounter Details Date Type Department Care Team ([facility] Contact Info) Description 10/23/2024 Orders Only [facility]ED[facility] [address] [place], [place] [phone] Aria Anderson FNP [address] [place], [place] [phone] shelter (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 (Primary Dx) Social History Tobacco Use Types [...] Description 06/30/2025 9:00 AM EST Clinical Support [facility] [address] [place] [address] Krista Guadalupe, RN documented as of this encounter Visit Diagnoses Diagnosis 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
--- OUTSIDE RECORDS SUMMARY | 2025-04-08 16:09 | XMS_ITS | Encounter Summary ---
Author Organization [employer] Address [address] [facility] 7t [place] [address] Care Team Providers Care Silk Screen Frame Assembler Name Role Phone Josette Stuart Primary Care Provider [phone] Josette Stuart Primary Care Provider [phone] Leidy Dunham NP Primary Care Provider [phone] Encounter Details Date Type Department Care Team (Late st Contact Info) Description 02/05/2023 Abstract [facility] [address] [place] [address] Josette Stuart FNP [address] [place], [place] [phone] Social History Tobacco Use Types Packs/Day Years [...] Description 06/30/2025 9:00 AM EST Clinical Support [facility] [address] [place] [address] Krista Guadalupe, RN documented as of this encounter Visit Diagnoses Not on filedocumented in this encounter Additional Health Concerns Assessment Noted Time PHQ-9 Depression Total Score: 2 12/08/19 23 1:16 PM EDT documented as of this encounter Care Teams Silk Screen Frame Assembler Relationship Specialty Start Date End Date Josette Stuart FNP [address] [place] [address] PCP - General Family Medicine 04/30/22 01/27/24 Josette Stuart FNP [address] [place] [address] PCP - General Family Medicine 01/28/24 03/30/24 Leidy Dunham NP [address] [place] [address] PCP - General Family Medicine 03/31/24 documented as of this encounter
--- OUTSIDE RECORDS SUMMARY | 2025-04-08 16:09 | XMS_ITS | Encounter Summary ---
Author Organization [employer] Address [address] [place] [address] 7t [place] [address] Care Team Providers Care Informix Developer Name Role Phone Josette Stuart Primary Care Provider [phone] Josette Stuart Primary Care Provider [phone] Leidy Dunham NP Primary Care Provider [phone] Encounter Details Date Type Department Care Team (Late Contact Info) Description 01/17/2023 Abstract [facility] MEDICINE [address] [place] [address] Jostete Stuart FNP [address] [place] [address] Social History Tobacco Use Types Packs/Day Years [...] Department Care Team (Late Contact Info) Description 06/30/2025 9:00 AM EST Clinical Support [facility] MEDICINE [address] [place] [address] Krista Guadalupe, CIARA documented as of this encounter Visit Diagnoses Not on filedocumented in this encounter Additional Health Concerns Assessment Noted Time PHQ-9 Depression Total Score: 2 12/08/19 23 1:16 PM EDT documented as of this encounter Care Teams Informix Developer Relationship Specialty Start Date End Date Josette Stuart FNP [address] [place] [address] PCP - General Family Medicine 04/30/22 01/27/24 Josette Stuart FNP [address] [place] [address] PCP - General Family Medicine 01/28/24 03/30/24 Leidy Dunham NP [address] [place] [address] PCP - General Family Medicine 03/31/24 documented as of this encounter
--- OUTSIDE RECORDS SUMMARY | 2025-04-08 16:09 | XMS_ITS | Encounter Summary ---
Author Organization [employer] Address [address] [place] [address] 7t [place] [address] Care Team Providers Care Chicken Picker Name Role Phone Josette Stuart Primary Care Provider [phone] Josette Stuart Primary Care Provider [phone] Leidy Dunham NP Primary Care Provider [phone] Encounter Details Date Type Department Care Team (Late st Contact Info) Description 01/10/2023 Abstract [facility] MEDICINE [address] [place] [address] Josette Stuart FNP [address] [place], [place] [phone] Social History Tobacco Use Types Packs/Day Years [...] Description 06/30/2025 9:00 AM EST Clinical Support [facility] MEDICINE [address] [place] [address] Krista Guadalupe RN documented as of this encounter Procedures Procedure Name Priority Date/Time Associated Diagnosis Comments COLONOSCOPY Routine 11/23/2021 8:53 AM EDT documented in this encounter Results * Hm Colonoscopy (11/23/2021 8:53 AM EDT) Colonoscopy Normal Normal Narrative Mirtha Everett - 11/23/2021 8:53 AM EDT Recommended 10 year follow up ( [facility] [place] [place] ) us Historical Provider HEALTH MAINTENANCE Edited Result - Final documented in this encounter Visit Diagnoses Not on filedocumented in this encounter Additional Health Concerns Assessment Noted Time PHQ-9 Depression Total Score: 2 12/08/19 23 1:16 PM EDT documented as of this encounter Care Teams Chicken Picker Relationship Specialty Start Date End Date Josette Stuart FNP [address] [place] [address] PCP - General Family Medicine 04/30/22 01/27/24 Josette Stuart FNP [address] [place] [address] PCP - General Family Medicine 01/28/24 03/30/24 Leidy Dunham NP [address] [place] [address] PCP - General Family Medicine 03/31/24 documented as of this encounter
--- OUTSIDE RECORDS SUMMARY | 2025-04-08 16:09 | XMS_ITS | Encounter Summary ---
Author Organization [employer] Address [address] [place] [address] 7t [place] [address] Care Team Providers Care Apparel Pattern Maker Name Role Phone Josette Stuart Primary Care Provider [phone] Josette Stuart Primary Care Provider [phone] Leidy Dunham NP Primary Care Provider [phone] Encounter Details Date Type Department Care Team (Late Contact Info) Description 04/11/2023 Abstract [facility] MEDICINE [address] [place] [address] Josette Stuart FNP [address] [place] [address] Social History Tobacco Use Types Packs/Day Years [...] Description 06/30/2025 9:00 AM EST Clinical Support [facility] MEDICINE [address] [place] [address] Krista Guadalupe RN documented as of this [...] documented as of this encounter Care Teams Apparel Pattern Maker Relationship Specialty Start Date End Date Josette Stuart FNP [address] [place] [address] PCP - General Family Medicine 04/30/22 01/27/24 Josette Stuart FNP [address] [place] [address] PCP - General Family Medicine 01/28/24 03/30/24 Leidy Dunham NP [address] [place] [address] PCP - General Family Medicine 03/31/24 documented as of this encounter
--- OUTSIDE RECORDS SUMMARY | 2025-04-08 16:09 | XMS_ITS | Encounter Summary ---
Author Organization [employer] Address [address] [facility] [address] 7[address] [place] [address] Care Team Providers Care Transplanter Name Role Phone Josette Stuart Primary Care Provider [phone] Josette Stuart Primary Care Provider [phone] Leidy Dunham NP Primary Care Provider [phone] Encounter Details Date Type Department Care Team (Late st Contact Info) Description 05/07/2023 Abstract [facility] MEDICINE [address] [place] [address] Mirtha Everett Social History Tobacco Use Types [...] Description 06/30/2025 9:00 AM EST Clinical Support [facility] MEDICINE [address] [place] [address] Krista Guadalupe RN documented as of this [...] documented as of this encounter Care Teams Transplanter Relationship Specialty Start Date End Date Josette Stuart FNP [address] [place] [address] PCP - General Family Medicine 04/30/22 01/27/24 Josette Stuart FNP [address] [place] [address] PCP - General Family Medicine 01/28/24 03/30/24 Leidy Dunham NP [address] [place] [address] PCP - General Family Medicine 03/31/24 documented as of this encounter
--- OUTSIDE RECORDS SUMMARY | 2025-04-08 16:09 | XMS_ITS | Encounter Summary ---
Author Organization [employer] Address [address] [place] [address] 7t [place] [address] Care Team Providers Care Deputy Controller Name Role Phone Josette Stuart Primary Care Provider [phone] Josette Stuart Primary Care Provider [phone] Leidy Dunham NP Primary Care Provider [phone] Encounter Details Date Type Department Care Team (Late st Contact Info) Description 03/19/2023 Orders Only [facility] [address] [place] [id number] Josette Stuart FNP [address] [place] [address] Social History Tobacco Use Types Packs/Day Years [...] 06/30/2025 9:00 AM EST Clinical Support [facility] MEDICINE [address] [place] [address] Krista Guadalupe, CIARA documented as of this encounter Visit Diagnoses Not on filedocumented in this encounter Additional Health Concerns Assessment Noted Time PHQ-9 Depression Total Score: 2 12/08/19 23 1:16 PM EDT documented as of this encounter Care Teams Deputy Controller Relationship Specialty Start Date End Date Josette Stuart FNP [address] [place] [address] PCP - General Family Medicine 04/30/22 01/27/24 Josette Stuart FNP [address] [place] [address] PCP - General Family Medicine 01/28/24 03/30/24 Leidy Dunham NP [address] [place] [address] PCP - General Family Medicine 03/31/24 documented as of this encounter
--- OUTSIDE RECORDS SUMMARY | 2025-04-08 16:09 | XMS_ITS | Encounter Summary ---
Author Organization [employer] Address [address] [facility] 7t [place] [address] Care Team Providers Care Bottle Selector Name Role Phone Josette Stuart Primary Care Provider [phone] Josette Stuart Primary Care Provider [phone] Leidy Dunham NP Primary Care Provider [phone] Encounter Details Date Type Department Care Team (Late st Contact Info) Description 09/06/2023 Orders Only [facility] [address] [place] [address] Josette Stuart FNP [address] [place], [place] [phone] Hypothyroidism, unspecified type (Primary Dx) Social History [...] 9:00 AM EST Clinical Support [facility] [address] [place] [address] Krista Guadalupe RN documented as of this encounter Procedures Procedure Name Priority Date/Time Associated Diagnosis Comments TSH W/REFLEX TO FT4 Routine 10/16/2023 4 :02 PM EDT Hypothyroidism, unspecified type documented in this encounter Results * (ABNORMAL) TSH with Reflex to Free T4 (10/16/2023 4:02 PM EDT) TSH reflex Free T4 0.15(L) 0.32 - 4.0 uIU/mL [facility] Blood 10/16/2023 4:02 PM EDT 10/16/2023 6:04 PM EDT us Josette [facility] BLOOD ORDERABLES Final Resu lt [facility] [address] [place] [address] [phone] documented in this encounter Visit Diagnoses Diagnosis Hypothyroidism, unspecified type- Primary documented in this encounter Additional Health Concerns Assessment Noted Time PHQ-9 Depression Total Score: 2 12/08/19 23 1:16 PM EDT documented as of this encounter Care Teams Bottle Selector Relationship Specialty Start Date End Date Josette Stuart FNP [address] [place] [address] PCP - General Family Medicine 04/30/22 01/27/24 Josette Stuart FNP [address] [place] [address] PCP - General Family Medicine 01/28/24 03/30/24 Leidy Dunham NP [address] [place] [address] PCP - General Family Medicine 03/31/24 documented as of this encounter
--- OUTSIDE RECORDS SUMMARY | 2025-04-08 16:10 | XMS_ITS | Encounter Summary ---
Author Organization [employer] Address [address] [place] [address] [address] [place] [address] Care Team Providers Care Clinical Auditor Name Role Phone Josette Stuart Primary Care Provider [phone] Josette Stuart Primary Care Provider [phone] Leidy Dunham NP Primary Care Provider [phone] Reason for Visit * Reason Onset Date Comments Medication Question 03/19/2023 Encounter Details Date Type Department Care Team ([facility] st Contact Info) Description 03/19/2023 Telephone [facility] MEDICINE [address] [place], [place] [phone] Josette Stuart FNP [address] [place], [place] [phone] Medication Question Social History Tobacco Use Types [...] clarify and verify. Please contact pt at [phone] documented in this encounter Plan of Treatment Upcoming Encounters Date Type Department Care Team (Late st Contact Info) Description 06/30/2025 9:00 AM EST Clinical Support [facility] [address] [place] [address] Krista Guadalupe RN documented as of this encounter Visit Diagnoses Not on filedocumented in this encounter Additional Health Concerns Assessment Noted Time PHQ-9 Depression Total Score: 2 12/08/19 23 1:16 PM EDT documented as of this encounter Care Teams Clinical Auditor Relationship Specialty Start Date End Date Josette Stuart FNP [address] [place] [address] PCP - General Family Medicine 04/30/22 01/27/24 Josette Stuart FNP [address] [place] [address] PCP - General Family Medicine 01/28/24 03/30/24 Leidy Dunham NP [address] [place] [address] PCP - General Family Medicine 03/31/24 documented as of this encounter
--- OUTSIDE RECORDS SUMMARY | 2025-04-08 16:10 | XMS_ITS | Clinical Summary ---
Author Organization [employer] Address [address] [place] [address] Care Team Providers Care Cloth Hauler Name Role Phone Leidy Dunham NP Primary Care Provider [phone] Allergies Active Allergy Reactions Criticality Noted Date Comments Penicillin G 08/01/2023 Penicillins Rash,Dizziness,Hives,Itching,Swelling Low 01/06/2020 Medications * This document contains information received from the source organization and may not represent a complete record from that organization. ferrous sulfate (FeroSul) 325 (65 Fe) MG [...] in the morning. 90 tablet 3 024 Active gabapentin (Neurontin) 300 MG capsuleIndicat ions:Low back pain, non-specific Take 1 capsule (300 mg) by mouth See administration instructions. Take 300mg by mouth, every mornining and every midday. 60 capsule Active gabapentin (Neurontin) 400 MG capsuleIndicat ions:Low back pain, non-specific Take 1 capsule (400 mg) by mouth at bedtime. 30 capsule Active Diclofenac Sodium 1 % gel Apply 2 g topically if needed in the morning and at bedtime (pain). 150 g 6 Active DULoxetine (Cymbalta) [address] capsule Active prazosin (Minipress) 5 MG capsule Active levothyroxine (Synthroid) 175 MCG tablet Take 1 tablet (175 mcg) by mouth before breakfast. 30 tablet 025 2025 Active Carafate 1 GM/10ML suspensionIndi cations:Gastro esophageal reflux disease with esophagitis without hemorrhage SHAKE LIQUID AND TAKE 10 ML BY MOUTH TWICE DAILY 600 mL 5 Active lisinopril-hyd roCHLOROthiazi de 20-12.5 MG tablet TAKE 1 TABLET BY MOUTH EVERY DAY 30 tablet 11 Active omeprazole (PriLOSEC) [address] capsuleIndicat ions:Gastroeso phageal reflux disease, unspecified whether esophagitis present TAKE 1 CAPSULE BY MOUTH TWICE A DAY AFTER MEALS 180 capsule 1 025 Active amLODIPine (Norvasc) 10 MG tabletIndicati ons:Hypertensi on, unspecified type TAKE 1 TABLET BY MOUTH EVERY DAY 90 tablet 1 025 Active sulfamethoxazo le-trimethopri m (Bactrim DS) 800-160 MG tabletIndicati ons:Urinary urgency Take 1 tablet by mouth 2 times daily for 5 days. 10 tablet 025 2024 Active metroNIDAZOLE (Metrogel) 0.75 % vaginal gelIndications :Bacterial Vaginosis Insert one applicator into vagina at bedtime for 7 nights 45 g Active fluconazole (Diflucan) 150 MG tabletIndicati ons:Urinary urgency Take 1 tablet (150 mg) by mouth 1 (one) time per week for 2 doses. 2 tablet 025 2024 Active omeprazole (PriLOSEC) [address] capsuleIndicat ions:Gastroeso phageal reflux disease, unspecified whether esophagitis present TAKE 1 CAPSULE BY MOUTH TWICE A DAY AFTER MEALS 180 capsule 025 2024 Discontinued(R eorder (will not trigger notification to Pharmacy)) amLODIPine (Norvasc) 10 MG tabletIndicati ons:Hypertensi on, unspecified type TAKE 1 TABLET BY MOUTH EVERY DAY 90 tablet 1 025 2024 Discontinued(R eorder (will not trigger notification to Pharmacy)) Active Problems Problem Noted Date Diagnosed Date Acute vaginitis 01/18/2025 Assessment & Plan (01/18/2025 4:08 PM EDT): Likely candidiasis. Rx fluconazole x 1 and she will apply clotrimazole cream on vulvar area only. Advised to use zinc oxide on affected area to decrease irritation Consult regarding avoiding vaginal douches or strong soaps on vulvar area Lower urinary tract symptoms (LUTS) 01/18/2025 Assessment & Plan (01/18/2025 4:08 PM EDT): Rule out UTI, Rx Bactrim x 5 days and follow-up with PCP and neurology due to recurrent UTIs. By report increase water intake, cranberry juice. Attention deficit hyperactivity disorder (ADHD) 09/07/2024 Shortness of breath 09/07/2024 Assessment & Plan (10/04/2024 8:34 PM EDT): Referral to cardiology, Echo ordered Reassuring clinical exam today Toe pain, left 09/07/2024 Postsurgical malabsorption, not [...] fever, chills, worsening symptoms or abdominal/flank pain alf (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 04/29 Overview (07/09/2024): Associated Dx: OA bilat hips, s/p L hip replacement Rx: Tramadol 50mg BID PRN Last [employer] CRUSHER OPERATOR agreement: 02/14/24 Tier II ([employer]Y PL[employer] CRUSHER OPERATOR visit every 3 months) Assessment & Plan (12/22/2024 2:02 PM EDT): Timeline: - 10/20/24: Group - utox/pill count as expected - 12/22/24: Group - utox/pill count as expected Assessment & Plan (10/20/2024 8:00 PM EDT): Timeline: - 10/20/24: Group - utox/pill count as expected History of abnormal cervical Pap smear Overview (02/06/2024): LEEP completed 2023 Assessment & Plan (02/06/2024 9:56 AM EDT): In care with [facility] Hiatal hernia 02/06/2024 Assessment & Plan (02/06/2024 9:52 AM EDT): Repair, reports small hiatal hernia reoccurrence, followed by GI, daily PPI controls symptoms Low acid diet reviewed Encounter for wellness examination in adult 08/2023 Overview (02/06/2024): Breast CA: Mammogram completed 10/21/23 birads 1 Cervical CA: In care with nadeem Valdez last week Colon CA: EGD/ colonoscopy,completed on [...] (01/28/2024 3:34 PM EDT): In care with [facility] has psychiatrist Increased urinary frequency 08/01/2023 Assessment [...] (02/06/2024 9:55 AM EDT): 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 Onychomycosis of toenail 02/05/2023 Temporomandibular joint crepitus 02/05/2023 Hypothyroidism 09/26/2022 Assessment & Plan (10/04/2024 8:35 PM EDT): Labs as ordered today Assessment & Plan (02/06/2024 9:55 AM EDT): Pt reports labile TSH hx, sig weight loss, overcorrected 11/19 repeat labs ordered today GERD (gastroesophageal reflux disease) Assessment & Plan (10/04/2024 8:35 PM EDT): Recent bout of dark emesis, work up in er reassuring, No further symptoms, referral to GI Herpes 09/26/2022 Hypertension 09/26/2022 Assessment & Plan (10/04/2024 8:34 PM EDT): See above Assessment & Plan (02/06/2024 9:57 AM EDT): [...] spine c/w degenerative spondylosis Assessment & Plan (12/22/2024 2:01 PM EDT): -Good engagement and participation with Group Medical Visit model, great support for other participants -Encouraged multifactorial approach to pain control including pharm and non- pharm modalities -UTOX and Pill count as expected Assessment & Plan (10/20/2024 8:00 PM EDT): -Good engagement and participation with Group Medical Visit model, great support for other participants -Encouraged multifactorial approach to pain control including pharm and non- pharm modalities -UTOX and Pill count as expected Assessment & Plan (08/27/2024 4:09 PM EST): [...] Encounters Date Type Department Care Team Description 04/07/2025 5:40 PM EDT Office Visit [facility] [address] [place] [phone] Isaak Oropeza MD Urinary urgency (Primary Dx); Bacterial vaginosis; Screening examination for STI 04/07/2025 Travel 04/02/2025 Telephone [facility] [address] [place] [address] Lorraine Garcia RN 03/22/[address] [address] Leidy Dunham NP Gastroesophageal reflux disease, unspecified whether esophagitis present; Gastroesophageal reflux disease with esophagitis without hemorrhage; Hypertension, unspecified type 03/18/[address] [address] Leidy Dunham NP Call Back Request; [employer] OPERATOR Tier 3 03/16/[address] [address] Krista Guadalupe RN Recomend [employer]USHER OPERATOR Tier 2 02/22/[address] [address] Krista Guadalupe RN 02/22/[address] [address] Krista Guadalupe RN Spondylosis of thoracolumbar spine (Primary Dx); Osteoarthritis involving multiple joints on both sides of body 02/21/[address] [address] Leidy Dunham NP 01/22/2025 Results Follow-Up [address] [address] Melisa Craft MD POCT urinalysis dipstick manually resulted, Bacterial Vaginosis Panel, Culture, Urine, Routine, Chlamydia/N. Gonorrhoeae RNA, TMA, Urogenitial 01/22/[address] [address] Krista Guadalupe, CIARA UTOX Conf. Neg BZO 01/19/2025 9:30 AM EDT Clinical Support [address] [address] Krista Guadalupe, CIARA long term (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 (Primary Dx) 01/19/[address] [address] Krista Guadalupe, CIARA UTOX results Pos BZO & THC 01/19/[address] [address] Krista Guadalupe RN [employer]US[employer] OPERATOR Renewal today 01/19/2025 Travel 01/18/2025 2:00 PM EDT Office Visit [facility] [address] [place] [address] Melisa Craft MD Lower urinary tract symptoms (LUTS) (Primary Dx); Acute vaginitis; Vaginal discharge 01/18/2025 Travel 01/12/2025 Travel 01/11/2025 Refill [facility] [address] [place] [address] Leidy Dunham NP 01/11/2025 Refill [facility] [address] [place] [address] Leidy Dunham NP alf (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 from Last 3 Months Immunizations Immunization Administration Dates Next Due Hep A / [...] Mass Index 33.48 04/07/2025 4:50 PM EDT Plan of Treatment Upcoming Encounters Date Type Department Care Team (Late st Contact Info) Description 06/30/2025 9:00 AM EST Clinical Support [facility] [address] [place] [address] Krista Guadalupe, RN Health Maintenance Due Date Last Done Comments CT Colonography 1970 FIT DNA/Cologuard 1970 FIT 1970 FOBT 1970 Sigmoidoscopy 1970 Pneumococcal Vaccine: 50+ Years (1 of 2 - PCV) 1987 Zoster Vaccines (1 of 2) 2018 DTaP/Tdap/Td Vaccines (1 - Tdap) 04/28/2022 04/27/2022, 02/10/2017 Cervical Cancer Screening 02/12/2023 HPV/Cotest 02/12/2023 06/04/2022 Pap Smear 02/12/2023 06/04/2022 Dental Oral Exam 11/21/2023 05/21/2023 Dental Prophylaxis 11/21/2023 05/21/2023 Dental X-Ray: Bitewings 05/22/2024 05/21/2023 SDOH Screening 01/27/2025 01/28/2024 Depression Monitoring 03/07/2025 09/07/2024, 025 COVID-19 Vaccine ( season) 2025 02/28/2022, 09/14/2021, 12/30/2020 Influenza Vaccine (#1) 2025 , 04/26/2021, 05/18/2019, Additional history exists Alcohol/Substance Use Screening 06/12/2025 06/12/2024 Mammogram 10/20/2025 10/21/2023, 04/29, 05/16/2022 Disability Screening 01/12/2026 01/12/2025 Tobacco Screening 01/18/2026 01/18/2025 Dental X-Ray: Full Mouth 05/22/2026 05/21/2023 Lipid Panel 11/18/2028 11/19/2023, 07/29, 12/12/2022, Additional history exists Colonoscopy 11/24/2031 11/23/2021 Colorectal Cancer Screening 11/24/2031 RSV Patients and Patients Aged 60 years or older (1 - 1-dose 75+ series) 2043 Hepatitis A Vaccines Aged Out 08/13/2017, 03/14/2017, 02/10/2017 No longer eligible based on patient's age to complete this topic Hepatitis B Vaccines Completed 08/13/2017, 03/14/2017, 02/10/2017 [...] patient's age to complete this topic Meningococcal B Vaccine Aged Out No l onger eligible based on patient's age to complete [...] Routine 04/07/2025 5:19 PM EDT Urinary urgency CHLAMYDIA/N. GONORRHOEAE RNA, TMA, UROGENITAL Routine 04/07/2025 4:56 PM EDT Screening examination for STI BACTERIAL VAGINOSIS PANEL Routine 04/07/2025 4:56 PM EDT Bacterial vaginosis POCT MAU-14 URINE DRUG SCREEN Routine 01/19/2025 11:51 AM EDT long term (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 DRUG MONITORING, BENZODIAZEPINES, QUANTITATIVE, URINE Routine 01/19/2025 9:45 AM EDT alf (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 POCT URINALYSIS DIPSTICK Routine 01/18/2025 2:02 PM EDT Lower urinary tract symptoms (LUTS) CHLAMYDIA/N. GONORRHOEAE RNA, TMA, UROGENITAL Routine 01/18/2025 1:53 PM EDT Lower urinary tract symptoms (LUTS) Acute vaginitis CULTURE, URINE, ROUTINE Routine 01/18/2025 1:53 PM EDT Lower urinary tract symptoms (LUTS) BACTERIAL VAGINOSIS PANEL Routine 01/18/2025 1:53 PM EDT Acute vaginitis HEPATITIS C AB W/REFL TO HCV RNA, QN, PCR Routine 09/07/2024 2:52 PM EST Encounter for wellness examination in adult LIPID PANEL, STANDARD Routine 11/19/2023 4:25 AM [...] Recently Relevant to Health Maintenance Results * (ABNORMAL) POCT urinalysis dipstick manually resulted (04/07/2025 5:19 PM EDT) Only the most recent of2 resultswithin the time period is included. Color, UA Colorless Clarity, UA Clear Glucose, UA Negative Bilirubin, UA Negative Ketones, UA Negative Spec Grav, UA 1.015 Blood, UA Negative Negative, None Detected pH, UA 6.5 Protein, UA Negative Urobilinogen, UA 0.2 Leukocytes, UA Trace(A) Negative, Rare, Trace Comment:small Nitrite, UA Negative Negative, None Detected Appearance, UA clear QC Media Lot # [id number] Lot# Expiration Date [id number] Urine 04/07/2025 5:19 PM EDT us Isaak Oropeza MD POINT OF CARE TEST ENTER/EDIT OR DERABLES Final Result * (ABNORMAL) Bacterial Vaginosis Panel (04/07/2025 4:56 PM EDT) Only the most recent of2 resultswithin the time period is included. TRICHOMONAS VAGINALIS DETECTION BY PCR NOT DETECTED Not Detect [facility] BACTERIAL VAGINOSIS DETECTION BY PCR POSITIVE(A) Negative [facility] Comment:The BV organism targ ets of [...] DETECTION BY PCR NOT DETECTED Not Detect [facility] Gail glab krusei PCR NOT DETECTED Not Detect [facility] Swab Vaginal structure / Unknown 04/07/2025 4:56 PM EDT 04/08/2025 11:47 AM EDT us Isaak Oropeza MD LAB MICROBIOLOGY - GENERAL ORDER DENNIS Final Result [facility] [address] [place] [phone] * Chlamydia/N. Gonorrhoeae RNA, TMA, Vaginal (04/07/2025 4:56 PM EDT) Only the most recent of2 resultswithin the time period is included. CT PCR NOT DETECTED Not Detect. [facility] Comment:A not detected test result does [...] psychologicalconsequences. NG PCR NOT DETECTED Not Detect. [facility] Comment:A not detected test result does [...] MICROBIOLOGY - GENERAL ORDER DENNIS Final Result [facility] [address] [place], [place] [phone] * (ABNORMAL) POCT MAU-14 Urine Drug Screen (01/19/2025 11:51 AM EDT) THC Positive Cocaine Screen, Urine Negative Opiate Screen, Urine Negative Methamphetamine Screen Urine Negative Amphetamine Screen, Urine Negative Benzodiazepines Screen, Urine Positive Barbiturate Screen, Urine Negative Methadone Screen, Urine Negative Buprenophine Screen, Urine Negative TCA, Urine Negative MDMA Urine Negative ng/mL Oxycodone Screen, Urine Negative Phencyclidine (PCP), Urine Negative Propoxyphene, Urine Negative Fentanyl, Urine Negative Urine Urine specimen obtained by clean catch procedure / Unknown 01/19/2025 11:51 AM EDT Sudeep Mensahe KristaCIARA - 01/19/2025 11:51 AM EDT UTOX cup Lot#[id number] Exp. 05/28/26 Internal Pass Control Leidy Dunham NP POINT OF CARE TEST ENTER/EDIT OR DERABLES Final Result * Drug Monitoring, Benzodiazepines, Quantitative, Urine (01/19/2025 9:45 AM EDT) Nordiazepam, GCMS Urine NEGATIVE [facility] Comment:CUTOFF: 50 ng/mL Oxazepam, GCMS Urine NEGATIVE [facility] Comment:CUTOFF: 50 ng/mL Lorazepam GCMS Urine NEGATIVE [facility] Comment:CUTOFF: 50 ng/mL Alprazolam, GCMS Urine NEGATIVE [facility] Comment:CUTOFF: 25 ng/mL Alphahydroxytriazolam, GCMS Ur NEGATIVE [facility] Comment:CUTOFF: 50 ng/mL Temazepam, GCMS Urine NEGATIVE [facility] Comment:CUTOFF: 50 ng/mL Alphahydroxymidazolam,GC MS Ur NEGATIVE [facility] Comment:CUTOFF: 50 ng/mL Aminoclonazepam, GCMS Urine NEGATIVE [facility] Comment:CUTOFF: 25 ng/mL Flurazepam Metabolite,GCMS Ur NEGATIVE [facility] Comment:CUTOFF: 50 ng/mL Benzodiazepines Comments SEE NOTE [facility] Comment:This drug testing is for medical treatment only. Analysiswas performed as non-forensic testing and these resultsshould be used only by healthcare providers to renderdiagnosis or treatment, or to monitor progress of medicalconditions.LDT Notes:Confirmation tests were developed and their analyticalperformance characteristics have been determined by [employer]. It has not been cleared or approved by the FDA.This assay has been validated pursuant to the CLIAregulations and is used for clinical purposes.Healthcare Providers needing Interpretation assistance,please contact us at [phone] ( ) M-F,8am to 10pm ESTTHIS TEST PERFORMED AT:[facility] [address] [phone] DIRECTOR: LISA CURTIS MD Urine (Urine, Random) 01/19/2025 9:45 AM EDT 01/19/2025 12:58 PM EDT us Leidy Dunham NP LAB URINE ORDERABLES Final Resul t Performing Organization Address [facility] Co de Phone Number [facility] [address] [place] [phone] * Culture, Urine, Routine (01/18/2025 1:53 PM EDT) Urine Urine specimen obtained by clean catch procedure / Unknown 01/18/2025 1:53 PM EDT 01/18/2025 4:06 PM EDT Comment:CC Narrative [facility] - 01/20/2025 11:00 AM EDT Streptococcus pyogenes (Grp A) Quant > 100,000 cfu/mL Susc N/A Susceptibility not routinely performed on this isolate. Specimen Source: Urine clean catch us Melisa Craft MD LAB MICROBIOLOGY - GENER AL ORDERABLES Final Result Performing Organization Address [facility] Co de Phone Number [facility] [address] [place] [phone] * Hepatitis C Antibody with Reflex to HCV, RNA, Quantitative, Real-Time PCR (09/07/2024 2:52 PM EST) Hepatitis C Antibody Nonreactive Nonreactive [facility] Comment:Antibodies to HCV no t detected; does not exclude early acuteHCV infection. Blood Venous blood specimen / Unknown 09/07/2024 2:52 PM EST 09/07/2024 4:02 PM EST us Leidy Dunham STUDENT COUNSELLOR LAB BLOOD ORDERABLES Final Resul t Performing Organization Address [facility] Co de Phone Number [facility] [address] [place] [phone] * (ABNORMAL) Lipid Panel, Standard (11/19/2023 4:25 AM EDT) Triglycerides 141 <150 mg/dL [facility] Comment:Desirable Triglyceri de: less than 150 mg/dLBorderline High Triglyceride 150-199 mg/dLHigh Triglyceride: 200-499 mg/dLVery High Triglyceride: greater than or equal to 5OO mg/dL Cholesterol 199 <200 mg/dL [facility] Comment:Desirable Cholestero l: less than 200 mg/dLBorderline High Cholesterol: 200-239 mg/dLHigh Cholesterol: greater than 239 mg/dL LDL Cholesterol Calculated 106(H) <100 mg/dL [facility] Comment:Desirable LDL: less than 100 mg/dLNear Optimal/Above Optimal LDL: 110- 129 mg/dLBorderline High LDL: 130-159 mg/dLHigh LDL: 160-189 mg/dLVery High LDL: greater than or equal to 190 mg/dL HDL Cholesterol 65 >40 mg/dL [facility] Comment:Desirable HDL: great er than 40 mg/dL Note: This HDL assay may give artificially low results in patients with liver disease. 11/19/2023 4:25 AM EDT 11/19/2023 4:31 AM EDT us Generic External Data Provider LAB BLOOD ORDERAB LES Final Result Performing Organization Address City/[facility]/ZIP Co de Phone Number [facility] [address] [place] [phone] * BI Mammogram Screening Tomosynthesis Bilateral (10/21/2023 12:25 PM EDT) Anatomical Region Laterality Modality Breast Bilateral Mammography 10/21/2023 12:2 5 PM EDT Narrative 10/28/2023 4:19 PM EDT [address] [place] [address] Mammography Report Signed Patient: Kristal Storey MR#: [id number] : 1970 Acct:[id number] Age/Sex: 53 / F ADM Date: 10/21/23 Loc: HO.MAMMO Attending Dr: Josette Stuart NP Ordering Physician: Josette Stuart NP Results: 1Negativ e Date of Service: 10/21/23 Follow Up: 1 Year From Orig inal Mammogram Procedure(s): MM tomosynthesis screening BI Accession Number(s): [id number] cc: Josette Stuart NP EXAMINATION: MM SCREENING [...] in OV> 10/28/23 1615 DD/ 1225 TD/TT: Horseradish Maker: Procedure Note Donotuseinterpreter, Image - 10/28/[address] [place] [address] Mammography Report Signed Patient: Kristal Storey AMR#: [id number] : 1970Acct:[id number] Age/Sex: 53 / FADM Date: 10/21/23 Loc: HO.MAMMO Attending Dr: Josette Stuart STUDENT COUNSELLOR Ordering Physician: Josette Stuart NPResults: 1Negativ e Date of Service: 10/21/23Follow Up: 1 Year From Orig inal Mammogram Procedure(s): MM tomosynthesis screening BI Accession Number(s): [id number] cc: Josette Stuart STUDENT COUNSELLOR EXAMINATION: MM SCREENING DIGITAL BREAST TOMOSYNTHESIS, BILATERAL [...] in OV> 10/28/23 1615 DD/ 1225 TD/TT: Horseradish Maker: Josette Stuart CONSTRUCTION FIELD ENGINEER IMG BI PROCEDURES Final Result * (ABNORMAL) THINPREP TIS PAP AND HPV mRNA E6/E7 WITH REFLEX TO HPV 16,18/45 (06/04/2022 11:10 AM EST) Clinical Information: None given [facility] COMMENT SEE COMMENT [facility] Comment: EXPLANATORY NOTE: The Pap is a screening test for cervical cancer. It is not a diagnostic test and is subject to false negative and false positive results. It is most reliable when a satisfactory sample, regularly obtained, is submitted with relevant clinical findings and history, and when the Pap result is evaluated along with historic and current clinical information. COMMENT: This Pap test has been evaluated with computer assisted technology. [facility]GAC[facility] LABS Parking Meter Attendant : SEE COMMENT [facility] Comment: BLC,CT(ASCP) CT screening location: [address] [address] General Categorization: EPITHELIAL CELL ABNORMALITY(A) [facility] HPV nRNA E6/E7 Detected(A) Not Detected [facility] Comment: Methodology: Home Office Representative-Mediated Amplification This assay detects E6/E7 viral messenger RNA (mRNA) from 14 high-risk HPV types (16,18,31,33,35,39,45,51,52,56,58,59,66,68). Cervical sources are required for HPV testing. If a vaginal source from a patient who has had a total hysterectomy with removal of cervix was submitted, please contact the testing laboratory for alternative testing options. For additional information, please refer to http://education.Seelio/faq/AIB622a2 (This link if provided for information/ educational purposes only.) Interpretation/R esult: Atypical Squamous Cells of Undetermined Significance (ASC-US)(A) [facility] LMP: NONE GIVEN [facility]VERTED [facility]GAC[facility] LABS PATHOLOGIST: SEE COMMENT CONVE RTED [facility] LAB[facility] Comment: Africa Shaikh MD, PhD, Board Certified in Anatomic and Clinical Pathology (electronic signature) Consulting Pathologist [facility] [address] [place] [address] Prev. BX: NONE GIVEN CONVERTED [facility]GACY LABS Prev. PAP: NONE GIVEN [facility]VER[facility] LAB[facility] SOURCE: None given [facility] Statement Of Adequacy: SATISFACTORY FOR EVALUATION [facility] 06/04/2022 11:1 0 AM EST us Mark Wheeler MD LAB PATHOLOGY ORDERABLES Fin al Result [facility] * Colonoscopy (11/23/2021 8:53 AM EDT) Colonoscopy Normal Normal Narrative Marguerite, Mirtha - 11/23/2021 8:53 AM EDT Recommended 10 year follow up ( [facility] ) Historical Provider HEALTH MAINTENANCE Edited Result - Final * HIV AB/AG (09/14/2020 8:55 AM EST) [facility] HIV AB/AG Nonreactive Nonreactive [facility] Comment: HIV-1 p24 Ag and/or HIV-1/HIV-2 Ab not detected. A test result that is nonreactive does not exclude the possibility of exposure to or infection with HIV-1 and/or HIV-2. Nonreactive results in this assay for individuals with prior exposure to HIV-1 and/or HIV-2 may be due to antigen and antibody levels that are below the limit of detection of this assay. [employer] HIV Ag/Ab Combo assay result and supplemental assay results should be interpreted in conjunction with the patient's clinical presentation, history and other laboratory results. If the results are inconsistent with clinical evidence, additional testing is suggested to confirm the result. 09/14/2020 8:55 AM EST Mark Wheeler MD HISTORICAL/NON ORDERABLE LAB S Final Result [facility] [address] from Last 3 Months or Most Recently Relevant to Health Maintenance Insurance [place] [address] [place] [phone] [facility] [address] [place] [facility] MEDICAID [employer] Care Teams Cloth Hauler Relationship Specialty Start Date End Date Leidy Dunham NP [address] [place] [id number] PCP - General Family Medicine 03/31/24
--- OUTSIDE RECORDS SUMMARY | 2025-04-08 16:10 | XMS_ITS | Encounter Summary ---
Author Organization [employer] Address [address] [place] [address] [address] [place] [address] Care Team Providers Care Tub Attendant Name Role Phone Josette Stuart Primary Care Provider [phone] Josette Stuart Primary Care Provider [phone] Leidy Dunham NP Primary Care Provider [phone] Reason for Visit * Reason Onset Date Comments PT1 03/05/2023 Encounter Details Date Type Department Care Team (Late st Contact Info) Description 03/05/2023 Telephone [facility] [address], [place] [phone] Josette Stuart FNP [address], [place] [phone] PT1 Social History Tobacco Use Types Packs/Day [...] 8:15 am Visits: Address: [address], [place] [address] Facility: [facility] [place] Wheel Chair: n/a 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 Needed: no documented in this encounter Plan of Treatment Upcoming Encounters Date Type Department Care Team (Late st Contact Info) Description 06/30/2025 9:00 AM EST Clinical Support [facility] [address] [place] [address] Krista Guadalupe RN documented as of this encounter Visit Diagnoses Not on filedocumented in this encounter Additional Health Concerns Assessment Noted Time PHQ-9 Depression Total Score: 2 12/08/19 23 1:16 PM EDT documented as of this encounter Care Teams Tub Attendant Relationship Specialty Start Date End Date Josette Stuart FNP [address] [place] [address] PCP - General Family Medicine 04/30/22 01/27/24 Josette Stuart FNP [address] [place] [address] PCP - General Family Medicine 01/28/24 03/30/24 Leidy Dunham NP [address] [place] [address] PCP - General Family Medicine 03/31/24 documented as of this encounter
== END 2025-04-07 11:44 | disposition home or self-care (01) ==
LOC: HO.HHCLNP 11:43
PROVIDERS: Visit Provider Family Medicine
DX: N76.0 Acute vaginitis (principal); B96.89 Other specified bacterial agents as the cause of diseases classified elsewhere; R39.15 Urgency of urination; Z20.2 Contact with and (suspected) exposure to infections with a predominantly sexual mode of transmission
CPT/HCPCS: 81515; 87086; 87147; 87491; 87591

== ENCOUNTER → 2025-04-22 09:10 | Outpatient (BNVA) | payer OTHER, SELFPAY | PROVIDERS: PCP Nurse Practitioner Family; Visit Provider Physician Assistant | DX: S61.213A Laceration without foreign body of left middle finger without damage to nail, initial encounter (principal); W26.0XXA Contact with knife, initial encounter | CPT/HCPCS: 12001; 99203 ==

== ENCOUNTER → 2025-04-30 10:08 | Outpatient (BNVA) | payer OTHER, SELFPAY | PROVIDERS: Visit Provider Physician Assistant | DX: S61.213D Laceration without foreign body of left middle finger without damage to nail, subsequent encounter (principal); W26.0XXD Contact with knife, subsequent encounter; Z02.79 Encounter for issue of other medical certificate | CPT/HCPCS: 99213 ==